=== PATIENT | female | born 1950 | race Caucasian/White ===

== ENCOUNTER → 2016-10-31 | Day surgery (SDC) | payer MEDICARE, OTHER ==
[~2016-10-31] VITALS: Ht 165.1 cm; Wt 86.2 kg
[~2016-10-31] MED LIST: ACETAMINOPHEN 325 MG TAB PO PRN; ACETYLCHOLINE OPHTH SOLN 1% 2ML As Ordered ONE; ATOR1TAB21 PO; AcetaZOLAMIDE 500 MG ER CAP PO ONE; BALANCED SALT IRRIGATION SOLUTION 500ML BAG (FOR OR EYE MACHINE) As Ordered ONE; CEFUROXIME 1MG/0.1ML INTRACAMERAL INJ As Ordered ONE; CYCLOPENTOLATE 2% OPHTH SOLN OS ONE; D5W/0.2% SODIUM CHLORIDE 250 ML IV SCH; HEALON DUET (HEALON 10MG/ML 0.55ML & HEALON ENDOCOAT 30MG/ML 0.85ML) As Ordered ONE; KETOROLAC 0.5% OPHTH SOLN XX ONE; LIDOCAINE 1% SDV 5 ML VIAL As Ordered ONE; LIDOCAINE 4% INJ 5 ML AMP OU ONE; LISI-538 PO; MIDAZOLAM INJ 2 MG/2 ML VIAL (J2250) As Ordered ONE; OFLOXACIN 0.3 % (OCUFLOX) OPTH SOL 5ML OS ONE; PHENYLEPHRINE 2.5% OPHTH SOL 2ML OS ONE; POVIDONE-IODINE 5% OPHTH PREP SOL 30ML As Ordered ONE; PROPARACAINE 0.5% OPHTH SOL 15ML XX PRN; TRIMETHOBENZAMIDE 300 MG CAP PO PRN; TROPICAMIDE 1% OPHTH SOLN 2 ML OS ONE; fentaNYL 100 MCG/2 ML INJECTION (J3010) As Ordered ONE
[2016-10-31 10:00] VITALS: BP 135/62
--- NOTE | 2016-10-31 15:19 | RO ---
DATE OF PROCEDURE: 10/31/2016 PREPROCEDURE DIAGNOSIS: Age-related nuclear cataract, left eye. POSTPROCEDURE DIAGNOSIS: Age-related nuclear cataract, left eye. PROCEDURE: Phacoemulsification and posterior chamber intraocular lens implantation left eye. Lens used was a U00T0, 22.0 Diopter. SURGEON: Jacquie Mccollum MD NEWS ANALYST: ANESTHESIA: Topical with sedation. DESCRIPTION OF PROCEDURE: The patient was prepped and draped in the usual fashion. A lid speculum was placed between the lids. The eye was fixated. A stab incision was made to the anterior chamber, and 1% non-preserved Lidocaine was instilled. Then, viscoelastic was instilled. The eye was re-fixated. A 2.75 mm sapphire keratome was used to make a clear corneal temporal limbal incision. Capsulorrhexis was begun with a 30-gauge bent needle and then carried out in a circular fashion with capsulorrhexis forceps. The lens was hydrodissected, and then the phacoemulsification unit was used to make a groove in the nucleus and two meridians. The nucleus was then cracked into four quadrants. Each quadrant was removed with the phacoemulsification unit. Any remaining cortex was removed with the I A unit. Capsular bag was refilled with viscoelastic. A posterior chamber intraocular lens was placed in the capsular bag without difficulty. Any remaining viscoelastic was removed with the I A unit. The wound was hydrated, and Miochol and cefuroxime were instilled into the anterior chamber. The patient tolerated the procedure well and went to the recovery room in stable condition.
== END | disposition home or self-care (01) ==
LOC: M SDC 08:09
PROVIDERS: ATTEND Ophthalmology
DX: H25.12 Age-related nuclear cataract, left eye (principal); I10 Essential (primary) hypertension; E78.5 Hyperlipidemia, unspecified; Z79.899 Other long term (current) drug therapy
CPT/HCPCS: 66984; J2250; J3010; V2632

== ENCOUNTER → 2016-11-21 | Day surgery (SDC) | payer MEDICARE, OTHER ==
[~2016-11-21] VITALS: Ht 170.2 cm; Wt 86.0 kg
[~2016-11-21] MED LIST changes: +CYCLOPENTOLATE 2% OPHTH SOLN As Ordered ONE; +CYCLOPENTOLATE 2% OPHTH SOLN OD ONE; -CYCLOPENTOLATE 2% OPHTH SOLN OS ONE; +KETOROLAC 0.5% OPHTH SOLN OD ONE; -KETOROLAC 0.5% OPHTH SOLN XX ONE; +OFLOXACIN 0.3 % (OCUFLOX) OPTH SOL 5ML As Ordered ONE; +OFLOXACIN 0.3 % (OCUFLOX) OPTH SOL 5ML OD ONE; -OFLOXACIN 0.3 % (OCUFLOX) OPTH SOL 5ML OS ONE; +PHENYLEPHRINE 2.5% OPHTH SOL 2ML As Ordered ONE; +PHENYLEPHRINE 2.5% OPHTH SOL 2ML OD ONE; -PHENYLEPHRINE 2.5% OPHTH SOL 2ML OS ONE; +PROPARACAINE 0.5% OPHTH SOL 15ML OD PRN; -PROPARACAINE 0.5% OPHTH SOL 15ML XX PRN; +TROPICAMIDE 1% OPHTH SOLN 2 ML As Ordered ONE; +TROPICAMIDE 1% OPHTH SOLN 2 ML OD ONE; -TROPICAMIDE 1% OPHTH SOLN 2 ML OS ONE
[2016-11-21 09:40] VITALS: BP 135/60
--- NOTE | 2016-11-21 09:58 | RO ---
DATE OF PROCEDURE: 11/21/2016 PREPROCEDURE DIAGNOSIS: Age-related nuclear cataract right eye. POSTPROCEDURE DIAGNOSIS: Age-related nuclear cataract right eye. PROCEDURE: Phacoemulsification and posterior chamber intraocular lens implantation right eye. Lens used is a U0020 23.0 diopter. SURGEON: Jacquie Mccollum MD SAMPLE CHECKER: ANESTHESIA: Topical with sedation. DESCRIPTION OF PROCEDURE: The patient was prepped and draped in the usual fashion. A lid speculum was placed between the lids. The eye was fixated. A stab incision was made to the anterior chamber, and 1% nonpreserved Lidocaine was instilled. Then, viscoelastic was instilled. The eye was refixated. A 2.75 mm sapphire keratome was used to make a clear corneal temporal limbal incision. Capsulorrhexis was begun with a 30-gauge bent needle and then carried out in a circular fashion with capsulorrhexis forceps. The lens was hydrodissected, and then the phacoemulsification unit was used to make a groove in the nucleus and two meridians. The nucleus was then cracked into four quadrants. Each quadrant was removed with the phacoemulsification unit. Any remaining cortex was removed with the I+A unit. Capsular bag was refilled with viscoelastic. A posterior chamber intraocular lens was placed in the capsular bag without difficulty. Any remaining viscoelastic was removed with the I+A unit. The wound was hydrated, and Miochol and cefuroxime were instilled into the anterior chamber. The patient tolerated the procedure well and went to the recovery room in stable condition.
== END | disposition home or self-care (01) ==
LOC: M SDC 07:14
PROVIDERS: ATTEND Ophthalmology
DX: H25.11 Age-related nuclear cataract, right eye (principal); I10 Essential (primary) hypertension; E78.5 Hyperlipidemia, unspecified; Z79.899 Other long term (current) drug therapy
CPT/HCPCS: 66984; J2250; J3010; V2632

== ENCOUNTER → 2017-10-10 | Outpatient (CLI) | payer MEDICARE, OTHER | LOC: M WUC 13:09 | DX: R06.02 Shortness of breath (principal) | CPT/HCPCS: 71046 ==

== ENCOUNTER → 2018-01-22 | Outpatient (REF) | payer MEDICARE, OTHER ==
[2018-01-22 13:24] LABS: ALBUMIN/GLOBULIN RATIO 1.33 (1.00-1.93); ALKALINE PHOSPHATASE 72 U/L (45-117); ALT/SGPT 33 U/L (12-78); ANION GAP 9 MEQ/L (8-16); AST/SGOT 18 U/L (7-37); BILIRUBIN,TOTAL 0.3 MG/DL (0.2-1.0); BLOOD UREA NITROGEN 20 MG/DL (7-18); CALCIUM LEVEL 8.9 MG/DL (8.8-10.2); CARBON DIOXIDE LEVEL 25 MEQ/L (21-32); CHLORIDE LEVEL 111 MEQ/L (98-107); CHOLESTEROL LEVEL 234 MG/DL (<200); CHOLESTEROL RISK RATIO 3.966 (<5); CREATININE FOR GFR 0.78 MG/DL (0.55-1.30); FREE T4 0.73 NG/DL (0.76-1.46); GLOMERULAR FILTRATION RATE > 60.0 (>45); GLUCOSE, FASTING 105 MG/DL (70-100); HDL CHOLESTEROL 59 MG/DL (>40); LDL CHOLESTEROL 147.8 MG/DL (<100); NON-HDL-C 175 MG/DL; POTASSIUM SERUM 4.9 MEQ/L (3.5-5.1); SODIUM LEVEL 145 MEQ/L (136-145); TRIGLYCERIDES LEVEL 136 MG/DL (<150)
== END ==
LOC: M LABDRWAD 12:10
DX: E78.2 Mixed hyperlipidemia (principal)

== ENCOUNTER → 2018-01-22 | Outpatient (CLI) | payer MEDICARE, OTHER | LOC: M ADAMS 08:17 | DX: M25.561 Pain in right knee (principal); E78.2 Mixed hyperlipidemia | CPT/HCPCS: 84443 ==

== ENCOUNTER → 2018-02-25 | Outpatient (REF) | payer MEDICARE, OTHER ==
[2018-02-25 13:33] LABS: ANION GAP 8 MEQ/L (8-16); BLOOD UREA NITROGEN 14 MG/DL (7-18); CALCIUM LEVEL 8.9 MG/DL (8.8-10.2); CARBON DIOXIDE LEVEL 26 MEQ/L (21-32); CHLORIDE LEVEL 111 MEQ/L (98-107); CHOLESTEROL LEVEL 227 MG/DL (<200); CHOLESTEROL RISK RATIO 4.829 (<5); CREATININE FOR GFR 0.71 MG/DL (0.55-1.30); FREE T4 0.78 NG/DL (0.76-1.46); GLOMERULAR FILTRATION RATE > 60.0 (>45); GLUCOSE, FASTING 91 MG/DL (70-100); HDL CHOLESTEROL 47 MG/DL (>40); LDL CHOLESTEROL 144.8 MG/DL (<100); NON-HDL-C 180 MG/DL; POTASSIUM SERUM 4.7 MEQ/L (3.5-5.1); SODIUM LEVEL 145 MEQ/L (136-145); TRIGLYCERIDES LEVEL 176 MG/DL (<150)
[2018-02-25 14:44] LABS: ESTIMATED AVERAGE GLUCOSE 126 MG/DL (60-110)
[2018-02-26 08:41] LABS: THYROID PEROXIDASE ANTIBODY < 28.0 U/ML (<60.0)
== END ==
LOC: M LABDRWAD 12:19
DX: E78.2 Mixed hyperlipidemia (principal); R73.01 Impaired fasting glucose; I10 Essential (primary) hypertension; R94.6 Abnormal results of thyroid function studies
CPT/HCPCS: 84443

== ENCOUNTER → 2018-04-15 | Outpatient (CLI) | payer MEDICARE, OTHER ==
[2018-04-15 15:12] LABS: FREE T4 0.99 NG/DL (0.76-1.46)
== END ==
LOC: M WUC 10:32
DX: E03.9 Hypothyroidism, unspecified (principal)
CPT/HCPCS: 84443

== ENCOUNTER → 2018-05-27 | Outpatient (REF) | payer MEDICARE, OTHER ==
[2018-05-27 13:48] LABS: ANION GAP 2 MEQ/L (8-16); BLOOD UREA NITROGEN 17 MG/DL (7-18); CALCIUM LEVEL 9.3 MG/DL (8.8-10.2); CARBON DIOXIDE LEVEL 30 MEQ/L (21-32); CHLORIDE LEVEL 109 MEQ/L (98-107); CHOLESTEROL LEVEL 243 MG/DL (<200); CREATININE FOR GFR 0.82 MG/DL (0.55-1.30); GLOMERULAR FILTRATION RATE > 60.0 (>45); GLUCOSE, FASTING 95 MG/DL (70-100); HDL CHOLESTEROL 47 MG/DL (>40); LDL CHOLESTEROL 129 MG/DL (<100); NON-HDL-C 196 MG/DL; POTASSIUM SERUM 5.4 MEQ/L (3.5-5.1); SODIUM LEVEL 141 MEQ/L (136-145); TRIGLYCERIDES LEVEL 336 MG/DL (<150)
[2018-05-27 13:51] LABS: ESTIMATED AVERAGE GLUCOSE 120 MG/DL (60-110); HEMOGLOBIN A1c 5.8 %
== END ==
LOC: M LABDRWAD 12:32
DX: E78.2 Mixed hyperlipidemia (principal); Z79.899 Other long term (current) drug therapy
CPT/HCPCS: 83036

== ENCOUNTER → 2019-01-12 | Outpatient (REF) | payer MEDICARE, OTHER ==
[~2019-01-12] MED LIST changes: -ACETAMINOPHEN 325 MG TAB PO PRN; -ACETYLCHOLINE OPHTH SOLN 1% 2ML As Ordered ONE; -AcetaZOLAMIDE 500 MG ER CAP PO ONE; -BALANCED SALT IRRIGATION SOLUTION 500ML BAG (FOR OR EYE MACHINE) As Ordered ONE; -CEFUROXIME 1MG/0.1ML INTRACAMERAL INJ As Ordered ONE; -CYCLOPENTOLATE 2% OPHTH SOLN As Ordered ONE; -CYCLOPENTOLATE 2% OPHTH SOLN OD ONE; -D5W/0.2% SODIUM CHLORIDE 250 ML IV SCH; -HEALON DUET (HEALON 10MG/ML 0.55ML & HEALON ENDOCOAT 30MG/ML 0.85ML) As Ordered ONE; -KETOROLAC 0.5% OPHTH SOLN OD ONE; -LIDOCAINE 1% SDV 5 ML VIAL As Ordered ONE; -LIDOCAINE 4% INJ 5 ML AMP OU ONE; -MIDAZOLAM INJ 2 MG/2 ML VIAL (J2250) As Ordered ONE; -OFLOXACIN 0.3 % (OCUFLOX) OPTH SOL 5ML As Ordered ONE; -OFLOXACIN 0.3 % (OCUFLOX) OPTH SOL 5ML OD ONE; -PHENYLEPHRINE 2.5% OPHTH SOL 2ML As Ordered ONE; -PHENYLEPHRINE 2.5% OPHTH SOL 2ML OD ONE; -POVIDONE-IODINE 5% OPHTH PREP SOL 30ML As Ordered ONE; -PROPARACAINE 0.5% OPHTH SOL 15ML OD PRN; -TRIMETHOBENZAMIDE 300 MG CAP PO PRN; -TROPICAMIDE 1% OPHTH SOLN 2 ML As Ordered ONE; -TROPICAMIDE 1% OPHTH SOLN 2 ML OD ONE; -fentaNYL 100 MCG/2 ML INJECTION (J3010) As Ordered ONE
[2019-01-12 13:35] LABS: ALBUMIN 3.9 GM/DL (3.2-5.2); ALT/SGPT 29 U/L (12-78); BILIRUBIN,TOTAL 0.4 MG/DL (0.2-1.0); BLOOD UREA NITROGEN 15 MG/DL (7-18); CALCIUM LEVEL 8.9 MG/DL (8.8-10.2); CARBON DIOXIDE LEVEL 27 MEQ/L (21-32); CHLORIDE LEVEL 111 MEQ/L (98-107); CHOLESTEROL LEVEL 197 MG/DL (<200); CHOLESTEROL RISK RATIO 3.229 (<5); CREATININE FOR GFR 0.73 MG/DL (0.55-1.30); FREE T4 0.78 NG/DL (0.76-1.46); GLOMERULAR FILTRATION RATE > 60.0 (>45); GLUCOSE, FASTING 95 MG/DL (70-100); HDL CHOLESTEROL 61 MG/DL (>40); LDL CHOLESTEROL 98 MG/DL (<100); NON-HDL-C 136 MG/DL; POTASSIUM SERUM 4.7 MEQ/L (3.5-5.1); SODIUM LEVEL 144 MEQ/L (136-145); TRIGLYCERIDES LEVEL 189 MG/DL (<150)
[2019-01-12 14:50] LABS: HEMOGLOBIN A1c 5.6 %
== END ==
LOC: M LABDRWAD 12:43
PROVIDERS: ATTEND Family Medicine
DX: R73.03 Prediabetes (principal); E78.2 Mixed hyperlipidemia; E03.9 Hypothyroidism, unspecified

== ENCOUNTER → 2019-07-14 | Outpatient (REF) | payer MEDICARE, OTHER ==
[2019-07-14 13:03] LABS: BLOOD UREA NITROGEN 10 MG/DL (7-18); CALCIUM LEVEL 8.6 MG/DL (8.8-10.2); CARBON DIOXIDE LEVEL 27 MEQ/L (21-32); CHLORIDE LEVEL 114 MEQ/L (98-107); CHOLESTEROL LEVEL 134 MG/DL (<200); CHOLESTEROL RISK RATIO 2.528 (<5); CREATININE FOR GFR 0.65 MG/DL (0.55-1.30); FREE T4 0.96 NG/DL (0.76-1.46); GLOMERULAR FILTRATION RATE > 60.0 (>39); GLUCOSE, FASTING 100 MG/DL (70-100); HDL CHOLESTEROL 53 MG/DL (>40); LDL CHOLESTEROL 59 MG/DL (<100); NON-HDL-C 81 MG/DL; POTASSIUM SERUM 3.6 MEQ/L (3.5-5.1); SODIUM LEVEL 146 MEQ/L (136-145); TRIGLYCERIDES LEVEL 111 MG/DL (<150)
[2019-07-14 13:36] LABS: HEMOGLOBIN A1c 5.7 %
== END ==
LOC: M LABDRWAD 12:37
PROVIDERS: ATTEND Physician Assistant
DX: I10 Essential (primary) hypertension (principal); E03.9 Hypothyroidism, unspecified; R73.03 Prediabetes; E78.2 Mixed hyperlipidemia

== ENCOUNTER 2019-08-23 10:12 | Emergency (ER) | payer MEDICARE, OTHER ==
[~2019-08-23] VITALS: Ht 165.1 cm; Wt 83.9 kg
--- NOTE | 2019-08-23 11:17 | REP ---
CHEST, TWO VIEWS: There is no evidence of acute infiltrate. No pleural effusion is seen. The heart is normal in size. The mediastinal silhouette is unremarkable. The visualized osseous structures are intact. There is calcification of the thoracic aorta. IMPRESSION: No acute pulmonary disease. Electronically Signed by Justin Cervantes MD 08/23/2019 11:21 A
[2019-08-23 11:28] LABS: BASO % 0.4 % (0.0-1.0); EOS # 0.1 10^3/uL (0.0-0.5); EOS % 0.9 % (0.0-3.0); HEMATOCRIT 42.5 % (36.0-47.0); HEMOGLOBIN 13.6 g/dl (12.0-15.5); LYMPH # 2.4 10^3/uL (1.5-5.0); LYMPH % 28.2 % (24.0-44.0); MEAN CORPUSCULAR HEMOGLOBIN 30.6 pg (27.0-33.0); MEAN CORPUSCULAR VOLUME 95.5 fl (80.0-96.0); MONO # 0.5 10^3/uL (0.0-0.8); MONO % 5.3 % (0.0-5.0); NEUTROPHILS # 5.6 10^3/uL (1.5-8.5); PLATELET COUNT, AUTOMATED 221 10^3/uL (150-450); RED BLOOD COUNT 4.45 10^6/uL (4.00-5.40); WHITE BLOOD COUNT 8.6 10^3/uL (4.0-10.0)
[2019-08-23] MEDS ORDERED: ACETAMINOPHEN TAB 650MG DOSE (2X325MG) PO ONE (11:30)
[2019-08-23 11:53] LABS: ALBUMIN 4.1 GM/DL (3.2-5.2); ALT/SGPT 24 U/L (12-78); BILIRUBIN,DIRECT 0.2 MG/DL (0.0-0.2); BILIRUBIN,TOTAL 0.6 MG/DL (0.2-1.0); BLOOD UREA NITROGEN 11 MG/DL (7-18); CALCIUM LEVEL 9.1 MG/DL (8.8-10.2); CARBON DIOXIDE LEVEL 26 MEQ/L (21-32); CHLORIDE LEVEL 108 MEQ/L (98-107); CK-MB VALUE MASS 1.9 NG/ML (<3.6); CPK CREATINE PHOSPHOKINASE 131 U/L (26-192); CREATININE FOR GFR 0.73 MG/DL (0.55-1.30); GLOMERULAR FILTRATION RATE > 60.0 (>39); GLUCOSE, FASTING 95 MG/DL (70-100); LIPASE 618 U/L (73-393); MB/CK RELATIVE INDEX 1.45 (< OR =4); POTASSIUM SERUM 4.2 MEQ/L (3.5-5.1); SODIUM LEVEL 141 MEQ/L (136-145); TOTAL PROTEIN 7.5 GM/DL (6.4-8.2); TROPONIN I < 0.02 NG/ML (< 0.10)
--- NOTE | 2019-08-23 12:28 | REP ---
RIGHT UPPER QUADRANT ULTRASOUND: Real-time sonographic evaluation of the right upper quadrant performed. Gallbladder is moderately distended. There is no evidence of intraluminal gallstones. There is no gallbladder wall thickening or pericholecystic fluid. However there is dilatation of the common bile duct up to 16 mm. There is also diltation of the pancreatic duct up to 6 mm. Visualized pancreas is grossly unremarkable, but the pancreatic parenchyma is not well seen due to overlying bowel gas. Liver demonstrates no gross mass. Right kidney demonstrates no hydronephrosis with normal size 11.1 cm in length. IMPRESSION: No gallstones seen in the gallbladder and there is no gallbladder wall thickening or free fluid. However, there is dilatation of the common bile duct up to 16 mm and diltation of the pancreatic duct up to 6 mm. This suggests a stone or other abnormality at the ampulla of Vater. Further evaluation may be made with MRCP. Electronically Signed by Justin Cervantes MD 08/23/2019 05:52 P
[2019-08-23] MEDS ORDERED: LORazepam 2 MG/ML VIAL (J2060) IV STA ×2 (13:07→13:33)
[2019-08-23] MEDS ORDERED: ISOVUE-370 76% 100ML VIAL (Q9967) As Ordered ONE (14:28)
[2019-08-23] MEDS ORDERED: ACETAMINOPHEN TAB 650MG DOSE (2X325MG) PO PRN (16:15)
[2019-08-23] MEDS ORDERED: ONDA4TAB6 PO (16:31)
[2019-08-23 16:44] VITALS: BP 147/66
--- NOTE | 2019-08-23 20:44 | ECGEPIP ---
[facility] - ED Test Date: 2019-08-23 Pat Name: CINDI VALDIVIA Department: Room: - Gender: Female Court Manager: [facility] : 1950 Requested By: PROMISE Culver PA-C Order Number: [id number] Reading MD: Jewell Sanchez Measurements Intervals [place] Rate: 58 P: 15 [place]: 155 QRS: -5 QRSD: 96 T: 55 QT: 431 QTc: 427 Interpretive Statements SINUS BRADYCARDIA [id number] Electronically Signed on 08-23-2019 20:43:49 EST by Jewell Sanchez
--- NOTE | 2019-08-24 07:53 | REP ---
CT ABDOMEN AND PELVIS WITH IV CONTRAST: TECHNIQUE: Axial contrast enhanced images from the lung bases to the pubic symphysis using 100 mL Isovue 370 intravenous contrast material with multiplanar reformations. Visualized lung bases demonstrates no infiltrate. The liver demonstrates no mass. Spleen is normal in size with no intrinsic abnormality. The adrenal glands are normal. No mass or hydronephrosis is seen of the kidneys. There is a mass in the head of the pancreas measuring approximately 4 cm in maximum diameter. There is secondary moderate dilatation of the pancreatic duct as well as the common bile duct. Gallbladder is moderately distended. 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 There is secondary mild congestion in the mesentery with mild central mesenteric edema and multiple tiny lymph nodes present. There is atherosclerotic calcification of the abdominal aorta without aneurysm. No enlarged periaortic or peripancreatic lymph nodes are seen. There is no free air or free fluid. There is no bowel wall thickening. There is no pelvic mass. Urinary bladder is unremarkable. There are degenerative changes of the spine. IMPRESSION: There is a mass in the head of the pancreas 4 cm in maximum diameter with secondary dilatation of the pancreatic duct and bile ducts. 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 Electronically Signed by Justin Cervantes MD 08/24/2019 06:03 P
[2019-08-25 12:30] LABS: CA19-9 TUMOR MARKER,CARBOHYDRA 1542.2 U/ML (<35.0)
== END 2019-08-23 16:48 | disposition home or self-care (01) ==
LOC: M ED 10:12 → UNDOADMIN 16:03 → M ED INP 16:03 → UNDODISIN 16:47
DX: K85.90 Acute pancreatitis without necrosis or infection, unspecified (principal); K55.059 Acute (reversible) ischemia of intestine, part and extent unspecified; D37.8 Neoplasm of uncertain behavior of other specified digestive organs; I70.0 Atherosclerosis of aorta; R00.1 Bradycardia, unspecified; I25.2 Old myocardial infarction; E78.5 Hyperlipidemia, unspecified; E03.9 Hypothyroidism, unspecified; I10 Essential (primary) hypertension; K21.9 Gastro-esophageal reflux disease without esophagitis; R73.03 Prediabetes; Z87.442 Personal history of urinary calculi
CPT/HCPCS: 36415; 71046; 74177; 76705; 80048; 80076; 81001; 82550; 82553; 83690; 84484; 85025; 86301; 93005; 96374; 99284; J2060; Q9967

== ENCOUNTER 2019-08-29 22:44 | Emergency (ER) | payer MEDICARE, OTHER ==
[~2019-08-29] VITALS: Ht 165.1 cm; Wt 80.9 kg
[~2019-08-29 22:44] MED LIST changes: +ONDA4TAB6 PO
[2019-08-29] MEDS ORDERED: HYDR-3716 PO (23:00)
[2019-08-29] MEDS ORDERED: AMLO10TA5 PO (23:00)
[2019-08-29] MEDS ORDERED: LEVO75TA4 PO (23:00)
[2019-08-29] MEDS: MORPHINE 4 MG/ML 1ML VIAL/SYRINGE (J2270) IV PRN (23:30)
[2019-08-29] MEDS ORDERED: ONDANSETRON 4MG/2ML VIAL (J2405) IV ONE (23:30)
[2019-08-29 23:41] LABS: BASO % 0.2 % (0.0-1.0); HEMOGLOBIN 13.1 g/dl (12.0-15.5); LYMPH # 1.3 10^3/uL (1.5-5.0); MEAN CORPUSCULAR HEMOGLOBIN 30.7 pg (27.0-33.0); MEAN CORPUSCULAR HGB CONC 32.8 g/dl (32.0-36.5); MEAN CORPUSCULAR VOLUME 93.7 fl (80.0-96.0); MONO # 0.4 10^3/uL (0.0-0.8); MONO % 2.8 % (0.0-5.0); NEUTROPHILS # 12.5 10^3/uL (1.5-8.5); NEUTROPHILS % 87.8 % (36.0-66.0); PLATELET COUNT, AUTOMATED 262 10^3/uL (150-450); RED BLOOD COUNT 4.27 10^6/uL (4.00-5.40); WHITE BLOOD COUNT 14.2 10^3/uL (4.0-10.0)
[2019-08-30] MEDS: MORPHINE 4 MG/ML 1ML VIAL/SYRINGE (J2270) IV PRN (00:02)
[2019-08-30 00:03] LABS: ALBUMIN 3.6 GM/DL (3.2-5.2); ALT/SGPT 28 U/L (12-78); BILIRUBIN,DIRECT < 0.1 MG/DL (0.0-0.2); BILIRUBIN,TOTAL 0.4 MG/DL (0.2-1.0); BLOOD UREA NITROGEN 13 MG/DL (7-18); CALCIUM LEVEL 8.5 MG/DL (8.8-10.2); CARBON DIOXIDE LEVEL 22 MEQ/L (21-32); CHLORIDE LEVEL 112 MEQ/L (98-107); CREATININE FOR GFR 0.56 MG/DL (0.55-1.30); GLOMERULAR FILTRATION RATE > 60.0 (>39); GLUCOSE, FASTING 151 MG/DL (70-100); LIPASE 409 U/L (73-393); POTASSIUM SERUM 4.3 MEQ/L (3.5-5.1); SODIUM LEVEL 142 MEQ/L (136-145); TOTAL PROTEIN 6.8 GM/DL (6.4-8.2)
[2019-08-30] MEDS: GASTROGRAFIN SOLUTION 30ML PO SCH ×2 (01:48→02:15)
[2019-08-30] MEDS ORDERED: ISOVUE-370 76% 100ML VIAL (Q9967) As Ordered ONE (02:56)
--- NOTE | 2019-08-30 04:30 | REPVR ---
PROCEDURE INFORMATION: Exam: CT Abdomen And Pelvis With Contrast Exam date and time: 08/30/2019 3:09 AM Age: 69 years old Clinical indication: Abdominal pain; Generalized; Additional info: Abd pain, known pancreatic mass TECHNIQUE: Imaging protocol: Computed tomography of the abdomen and pelvis with intravenous contrast. Radiation optimization: All CT scans at this facility use at least one of these dose optimization techniques: automated exposure control; mA and/or kV adjustment per patient size (includes targeted exams where dose is matched to clinical indication); or iterative reconstruction. Contrast material: ISOVUE 370; Contrast volume: 100 ml; Contrast route: IV; COMPARISON: CT ABD/PEL W/IV CONTRAST ONLY 08/23/2019 2:25 PM FINDINGS: Lungs: Mild bibasilar atelectasis. Liver: Normal. No mass. Gallbladder and bile ducts: Marked distention of the gallbladder without any calcified stones. Dilated CBD is dilated measuring 11.4 mm. Pancreas: Lesion in the head of the pancreas with pancreatic ductal dilatation, not significantly changed from prior study. Findings are consistent with patient's given history of pancreatic cancer. Spleen: Normal. No splenomegaly. Adrenals: Normal. No mass. Kidneys and ureters: Normal. No hydronephrosis. Stomach and bowel: Marked thickening of the distal small bowel loop in the right lower quadrant and pelvis with mucosal enhancement and wall thickening and surrounding inflammatory changes. Distal small bowel loops are decompressed. Mild dilatation of the proximal small bowel loops in the mid abdomen and pelvis. Appendix: Normal appendix. Intraperitoneal space: Small ascites. Mesenteric congestion and moderate in enlarged mesenteric root lymph nodes. Vasculature: Extensive atherosclerosis of the aorta and its branches. Thrombus in the SMV and its branches. Lymph nodes: Unremarkable. No enlarged lymph nodes. Bladder: Unremarkable as visualized. Reproductive: Status post hysterectomy. Bones/joints: Unremarkable. No acute fracture. Soft tissues: Unremarkable. IMPRESSION: Lesion in the head of the pancreas with pancreatic ductal dilatation, not significantly changed from prior study. Findings are consistent with patient's given history of pancreatic cancer. Thrombus in the SMV and its branches. Mild ascites. Marked distention of the gallbladder without any calcified stones. Dilated CBD is dilated measuring 11.4 mm. Marked thickening of the distal small bowel loop in the right lower quadrant and pelvis with mucosal enhancement and wall thickening and surrounding inflammatory changes. Distal small bowel loops are decompressed. Mild dilatation of the proximal small bowel loops in the mid abdomen and pelvis. Findings represent marked inflammation versus infection. Electronically signed by: Desiree Petersen On 08/30/2019 04:29:55 AM
[2019-08-30] MEDS ORDERED: NORCO, ANEXSIA 5/325MG TABLET (HYDROcodone/ACETAMINOPHEN) PO ONE (04:45)
[2019-08-30 04:54] VITALS: BP 133/57
--- NOTE | 2019-08-30 12:50 | ECGEPIP ---
[facility] - ED Test Date: 2019-08-29 Pat Name: CINDI VALDIVIA Department: Room: - Gender: Female [employer] Helper: BEVER[place] : 1950 Requested By: MIREILLE Curtis Order Number: [id number] Reading MD: Jewell Sanchez Measurements Intervals [place] Rate: 61 P: 52 [place]: 202 QRS: -7 QRSD: 106 T: 52 QT: 470 QTc: 476 Interpretive Statements SINUS RHYTHM WITH OCCASIONAL VENTRICULAR PREMATURE COMPLEXES WITH OCCASIONAL SUP SUPRAVENTRICULAR PREMATURE COMPLEXES NONSPECIFIC T-WAVE ABNORMALITY PROLONGED QT INTERVAL COMPARED 08/23/19 Electronically Signed on 08-30-2019 12:50:19 EST by Jewell Sanchez
--- NOTE | 2019-09-02 14:15 | ED PDOC ---
Post-Departure Follow-Up ct abd/p faxed to dr bubba su for fu Mitul Palafox MD Sep 02, 2019 14:15
== END 2019-08-30 05:22 | disposition home or self-care (01) ==
LOC: M ED 22:44
DX: R93.5 Abnormal findings on diagnostic imaging of other abdominal regions, including retroperitoneum (principal); R10.9 Unspecified abdominal pain; R11.2 Nausea with vomiting, unspecified; I10 Essential (primary) hypertension; K86.89 Other specified diseases of pancreas; Z79.899 Other long term (current) drug therapy; Z87.891 Personal history of nicotine dependence
CPT/HCPCS: 74177; 80048; 80076; 81001; 83690; 85025; 87086; 93005; 93041; 96374; 96375; 96376; 99285; J2270; J2405; Q9963; Q9967

== ENCOUNTER → 2019-09-09 | Outpatient (REF) | payer MEDICARE, OTHER ==
[~2019-09-09] MED LIST changes: +AMLO10TA5 PO; +HYDR-3716 PO; +LEVO75TA4 PO
== END ==
LOC: M LAB REF 12:58
PROVIDERS: ATTEND Physician Assistant Medical
DX: K86.89 Other specified diseases of pancreas (principal)

== ENCOUNTER 2019-10-13 12:03 | Inpatient (IN) | payer MEDICARE, OTHER ==
[~2019-10-13] VITALS: Ht 165.1 cm; Wt 72.5 kg
[~2019-10-13 12:03] MED LIST changes: +ASPI81TA85 PO; +ATIV1TAB10 PO; +CRES20TA2 PO; +HYDR-4517 PO; +LEXA1TAB PO; +NAPR220C14 PO; +OMEP-218 PO; +PROC10TA4 PO; +[UNRECOGNIZED DRUG - CODE] PO
[2019-10-13 12:45] LABS: HEMATOCRIT 34.7 % (36.0-47.0); HEMOGLOBIN 11.6 g/dl (12.0-15.5); MEAN CORPUSCULAR HEMOGLOBIN 30.1 pg (27.0-33.0); MEAN CORPUSCULAR HGB CONC 33.4 g/dl (32.0-36.5); MEAN CORPUSCULAR VOLUME 89.9 fl (80.0-96.0); PLATELET COUNT, AUTOMATED 194 10^3/uL (150-450); RED BLOOD COUNT 3.86 10^6/uL (4.00-5.40); WHITE BLOOD COUNT 12.8 10^3/uL (4.0-10.0)
[2019-10-13 13:13] LABS: ALBUMIN 3.2 GM/DL (3.2-5.2); ALT/SGPT 264 U/L (12-78); BILIRUBIN,DIRECT 13.1 MG/DL (0.0-0.2); BILIRUBIN,TOTAL 20.2 MG/DL (0.2-1.0); BLOOD UREA NITROGEN 26 MG/DL (7-18); CALCIUM LEVEL 9.1 MG/DL (8.8-10.2); CARBON DIOXIDE LEVEL 25 MEQ/L (21-32); CHLORIDE LEVEL 104 MEQ/L (98-107); CREATININE FOR GFR 0.78 MG/DL (0.55-1.30); GLOMERULAR FILTRATION RATE > 60.0 (>39); GLUCOSE, FASTING 111 MG/DL (70-100); LIPASE 143 U/L (73-393); POTASSIUM SERUM 4.7 MEQ/L (3.5-5.1); SODIUM LEVEL 138 MEQ/L (136-145); TOTAL PROTEIN 6.3 GM/DL (6.4-8.2)
[2019-10-13 13:28] LABS: LYMPHOCYTES 15 % (16-44); MYELOCYTES 1 % (0-0); NEUTROPHILS 82 % (28-66); PLATELET ESTIMATE NORMAL (NORMAL)
[2019-10-13 13:29] LABS: ANISOCYTOSIS 1+; DOHLE BODIES 1+; TOXIC GRANULATION 1+
[2019-10-13 13:41] LABS: CK-MB VALUE MASS < 1.0 NG/ML (<3.6); CPK CREATINE PHOSPHOKINASE 114 U/L (26-192); MB/CK RELATIVE INDEX 0.88 (< OR =4); TROPONIN I < 0.02 NG/ML (< 0.10)
[2019-10-13] MEDS ORDERED: NS 1,000 ML IV ONE ×2 (13:45→15:15)
--- NOTE | 2019-10-13 14:03 | REP ---
CHEST, SINGLE VIEW: There is no evidence of acute infiltrate. No pleural effusion is seen. The heart is normal in size. The mediastinal silhouette is unremarkable. The visualized osseous structures are intact. There is a right central venous catheter with the tip at the junction of the superior vena cava and right atrium. IMPRESSION: No acute pulmonary disease. Electronically Signed by Justin Cervantes MD 10/13/2019 07:58 P
[2019-10-13] MEDS ORDERED: ISOVUE-370 76% 100ML VIAL (Q9967) As Ordered ONE (14:13)
[2019-10-13] MEDS ORDERED: ONDA4TAB6 PO (14:20)
[2019-10-13] MEDS ORDERED: LISI-672 PO (14:20)
[2019-10-13] MEDS ORDERED: CREO3600 PO ×2 (14:20)
--- NOTE | 2019-10-13 14:51 | REP ---
CT abdomen and pelvis with IV but without oral contrast: History: Worsening jaundice. History of pancreatic cancer. Comparison CT study August 30, 2019. CT contrast dose: 100 mL of intravenous Isovue 370. CT findings: Digital preliminary adjunct faculty instructor radiograph is unremarkable. The lung bases are clear. There is moderate intrahepatic and extrahepatic biliary ductal dilation. The gallbladder is distended. The common bile duct measures 1.7 cm in AP dimension, previously 1.3 cm. The main pancreatic duct is dilated. This has progressed as well. The main pancreatic duct today measures 9 mm, previously 5 mm. There is fullness of the inferior pancreatic head consistent with the diagnosis of pancreatic malignancy. This appears essentially unchanged from the recent prior study. There are a few celiac axis lymph nodes, the largest of which measures 8 mm in greatest diameter. This node is unchanged. No focal liver mass is appreciated. Spleen is unremarkable. The previously noted ascites is no longer apparent. Normal appendix is seen. No retroperitoneal mass is seen. Uterus is surgically absent. Urinary bladder is unremarkable. No abdominal wall defect is seen. Impression: Progressive biliary ductal dilation, both intrahepatic and extrahepatic associated with inferior pancreatic head mass. Progressive dilation of the pancreatic duct is also noted. The previously noted ascites has resolved. Electronically Signed by Yan Rivera MD 10/13/2019 06:01 P
[2019-10-13] MEDS ORDERED: PANTOPRAZOLE 40MG INJ (PROTONIX) (C9113) IV ONE (15:15)
[2019-10-13 15:20] LABS: PHOSPHORUS LEVEL 3.3 MG/DL (2.5-4.9)
[2019-10-13] MEDS ORDERED: ONDANSETRON 4MG/2ML VIAL (J2405) IV PRN (15:30)
[2019-10-13] MEDS ORDERED: PROCHLORPERAZINE 10 MG/2 ML VIAL (J0780) IM PRN (15:30)
[2019-10-13 16:00] VITALS: BP 148/72
[2019-10-13] MEDS ORDERED: hydrALAZINE INJ 20 MG/ML VIAL IV PRN (16:15)
--- NOTE | 2019-10-13 16:46 | HPEPDOC ---
General Date of Admission Oct 13, 2019 at 15:16 Date of Service: Oct 13, 2019 Primary Care Physician: JUJU BAEZ DO Other Providers Alexei Ashton MD Chief Complaint Nausea, vomiting, weakness History of Present Illness Frances is a 69-year-old woman who presented to the emergency department today with increased nausea, vomiting, and weakness. She has a past medical history significant for adenocarcinoma of the pancreas, and her first session of chemotherapy (Folfirinox) was on 10/07/2019. Since then, she has had increased nausea as well as vomiting. She has not been able to take any of her home medications since yesterday. She has also felt so weak that she couldn't get out of bed. She does have chronic diarrhea, that she has had since before her diagnosis. She complains that her abdomen is sore, but does not complain of any pain. She denies hematemesis, hematochezia, or melena. She denies fevers or chills. As far as the history of her cancer is concerned. In spring she became aware of abdominal discomfort, which then became progressively more severe over the course of about 9 months. Ultimately it was associated with a weight loss of greater than 40 pounds, as well as decreased energy with diarrhea. She had initially itching. Her abdominal discomfort to acid reflux and had a CT scan of the abdomen and pelvis on 08/23/2019. She was found to have had a 4 cm mass at the head of the pancreas, as well as superior mesenteric venous thrombosis. She was subsequently referred to [facility] and underwent an ERCP with ultrasound-guided biopsy of the pancreatic mass. Fine-needle aspirate confirmed the diagnosis of adenocarcinoma of the pancreas. The tumor was felt to be borderline resectable, and she underwent placement of a MediPort and initiation of Xarelto anticoagulation. She was also placed on Creon pancreatic enzymes, resulting in an improved ability to tolerate oral intake, as well as reduce abdominal pain and improvement in bowel habits with the reduction of diarrhea. She requested to receive neoadjuvant chemotherapy in [place], and was evaluated in the practice on 09/30/2019. Her first round of chemotherapy was 10/07/2019. Home Medications Scheduled Amlodipine Besylate (Amlodipine Besylate) 10 Mg Tablet, 10 MG PO DAILY, (Reported) Escitalopram Oxalate (Lexapro) 10 Mg Tablet, 10 MG PO DAILY, (Reported) Levothyroxine Sodium (Levothyroxine Sodium) 75 Mcg Tablet, 75 MCG PO DAILY, (Reported) Lipase/Protease/Amylase (Ignacia Cloud 36,000 Units Capsule) 1 Each Capsule.dr, 2 CAP PO WM, (Reported) Lisinopril (Lisinopril) 30 Mg Tablet, 30 MG PO QHS, (Reported) Omeprazole (Omeprazole) 40 Mg Capsule.dr, 40 MG PO BID Prochlorperazine Maleate (Prochlorperazine Maleate) 10 Mg Tablet, 1 TAB PO Q6H for nausea Take 10 mg po q 6 hours prn nausea not controlled by zofran Rosuvastatin Calcium (Crestor) 20 Mg Tablet, 20 MG PO QHS, (Reported) Sucralfate (Sucralfate) 1 Gm Tablet, 1 TAB PO BID Scheduled PRN Hydrocodone/Acetaminophen (Hydrocodone-Acetamin 10-325 mg) 1 Each Tablet, 1 TAB PO QID PRN for PAIN, (Reported) Lipase/Protease/Amylase (Ignacia Cloud 36,000 Units Capsule) 1 Each Capsule.dr, 1 CAP PO DAILY PRN for WITH SNACKS, (Reported) Lorazepam (Ativan) 0.5 Mg Tablet, 0.5 MG PO DAILYPRN PRN for NAUSEA Take 0.5 mg po q 6 hours prn nausea uncontrolled by Zofran or Compazine Ondansetron (Ondansetron Odt) 4 Mg Tab.rapdis, 4 MG PO Q6H PRN for NAUSEA OR VOMITING, (Reported) Allergies Coded Allergies: No Known Allergies (Unverified , 08/29/19) Past Medical History Medical History Adenocarcinoma of the pancreas Hypothyroidism Hypertension Coronary artery disease status post myocardial infarction (1981 and 1992) History of tobacco use, quit when she had her heart attack (greater than 45-[id number]-[id number] smoking history) Anxiety GERD Hyperlipidemia Surgical History D&C Hysterectomy secondary to menorrhagia Right kidney stone and surgical extraction (1976) MediPort placement ERCP with ultrasound-guided biopsy Family History Father at age 60 from a myocardial infarction, mother at age 72, cause unknown. She has 2 sisters that have both had COMMISSIONING ENGINE[employer] cancer. She also has a niece that had a history of brain cancer Social History Patient lives with her , son, and an 80 pound mixed breed dog. She designates her as her alternate decision maker, and states that he will be helped up by her daughter. Her daughter is supposed to arrive into town on October 20 to go over paperwork. She is a former smoker, having quit almost 30 years ago when she had her heart attack (she has a greater than 03-[id number]-wjvx smoking history). She denies alcohol or drug use. Other than travel to [place], she has not had any other medications or excursions. She denies any recent sick contacts. A-FIB/CHADSVASC A-FIB History Current/History of A-Fib/PAF?: No Review of Systems Other systems Constitutional: Denies fevers, chills, or night sweats. Endorses a greater than 40 pound weight loss in the last year Eyes: Denies visual changes, double vision, blurry vision, floaters, or feeling like a curtain pulled down. Ear nose throat: Denies runny nose, epistaxis, sinus pain, tinnitus, sore throat, or odynophasia Cardiovascular: Denies chest pain, shortness of breath, paroxysmal nocturnal dyspnea, orthopnea, edema, or palpitations. Respiratory: Denies cough, sputum production, wheezes, hemoptysis, or shortness of breath Gastrointestinal: Endorses abdominal pain, loss of appetite, nausea, vomiting, and chronic diarrhea. She denies constipation, obstipation, hematemesis, hematochezia, melena, or tenesmus Musculoskeletal: Denies joint swelling, decreased range of motion, crepitus, or new arthritis Integumentary: Denies pruritus, rashes, or lesions. Positive for yellowing of the skin and sclera Neuro: Denies any changes to sight/smell/hearing/taste, seizures, faint, headaches, paresthesias, anesthesias Psychiatric: Denies depression, paranoia, anhedonia, or episodes of martha. Endorses a history of anxiety Endocrine: Denies increased appetite, tremor, palpitations, constipation, dry skin, polydipsia, polyuria, polyphagia. Endorses history of hypothyroidism Hematologic: Denies any anemia, purpura, or petechiae. Denies easy bruising or bleeding Lymphatic: Denies any new lumps or bumps anywhere Physical Examination Other physical findings General: Pleasant female, who looks much younger than her stated age, lying in the stretcher in the emergency department in no acute distress. HEENT: Sclera are icteric, as are her conjunctiva bilaterally. She has yellowing under the tongue. She has an upper denture, and a lower partial denture. Posterior pharynx is free of exudate or erythema in the tongue is midline. Extraocular eye movements are intact without nystagmus. Neck: Supple, no masses, no JVD. Heart: Regular rate and rhythm; no murmurs, gallops, or rubs. PMI is not displaced Lungs: Clear to auscultation bilaterally, no wheezes, rhonchi, or rales Abdomen: Obese, soft, nondistended. Hyperactive bowel sounds appreciated in all 4 quadrants. There is generalized tenderness to palpation, especially in the middle/upper right quadrant. No rebound, guarding, or rigidity Back: Right-sided oblique scar at the level of the right kidney. No CVA tenderness bilaterally Extremities: No lower extremity edema bilaterally. Capillary refill is less than 2 seconds in all 4 extremities. Pulses are 2+ and brisk throughout Integumentary: The patient is completely jaundiced, her skin has a squires-tish hue. There are no telangiectasias or bruising Neuro: Answers questions appropriately, alert and oriented times 3. Sensation in tact throughout. Muscle strength 5 out of 5 in all 4 extremities. Cranial nerves II through XII grossly intact. Psych: Mood and affect are appropriate Vital Signs Vital Signs Date Time Temp Pulse Resp B/P (MAP) Pulse Ox O2 Delivery O2 Flow Rate FiO2 10/13/19 15:01 71 16 164/77 (106) 100 Room Air 10/13/19 12:03 97.4 Laboratory Data Labs 24H Laboratory Tests 2 10/13/19 12:26: Immature Granulocyte % (Auto) , Neutrophils (%) (Auto) , Nucleated Red Blood Cells % (auto) 0.0, Neutrophils 82H, Band Neutrophils 2, Lymphocytes (Manual) 15L, Myelocytes 1H, Anisocytosis 1+, Toxic Granulation 1+, Dohle Bodies 1+, Platelet Estimate NORMAL 10/13/19 12:28: Anion Gap 9, Glomerular Filtration Rate > 60.0, Uric Acid 3.0, Calcium Level 9.1, Phosphorus Level 3.3, Total Bilirubin 20.2*H, Direct Bilirubin 13.1H, Aspartate Amino Transf (AST/SGOT) 210H, Alanine Aminotransferase (ALT/SGPT) 264H, Alkaline Phosphatase 986H, Total Creatine Kinase 114, Creatine Kinase MB < 1.0, Creatine Kinase MB Relative Index 0.88, Troponin I < 0.02, Total Protein 6.3L, Albumin 3.2, Albumin/Globulin Ratio 1.03, Lipase 143 10/13/19 13:18: Lactic Acid Level 0.7 CBC/BMP Laboratory Tests 10/13/19 12:26 10/13/19 12:28 Microbiology Microbiology 10/13/19 Blood Culture, Received Pending Assessment/Plan Assessment: This is a 69-year-old woman who was recently diagnosed with adenocarcinoma of the head of the pancreas and had her first dose of chemotherapy (Folfirinox) on 10/07/2019 with subsequent increased nausea, vomiting, and weakness. In the emergency department she was noted to be much more jaundiced with an elevated total bilirubin of 20.2 and direct bilirubin of 13.1. CT of the abdomen and p sheri revealed progressive biliary ductal dilation, both intrahepatic and extrahepatic associated with inferior pancreatic head mass, as well as progressive dilation of the pancreatic duct. She was admitted to the hospital with gastroenterology on consultation for potential ERCP and biliary stent pl acement. Plan: 1. Jaundice. This is been chronic, however for the patient and his increased. Looking back at her labs, her last bilirubin a week ago was 10.4. Normal potassium, uric acid, and phosphorus rule out tumor lysis syndrome.She does have CT evidence of progression of her oncologic disease, and based on her labs this is likely obstructive. Her case has been discussed with her medical oncologist, Dr. Ashton. We will give her aggressive fluids, per his recommendations. 2. Pancreatic mass. The patient does have known adenocarcinoma of the pancreas. She has just completed her first round of Folfirinox chemotherapy. Unfortunately, her CT of the abdomen and pelvis shows progression of her disease process with dilation of intra-and extrahepatic as well as pancreatic ducts. Dr. Su from gastroenterology has been consulted, appreciate his help. She will be made nothing by mouth, with IV fluids, and he is planning to do an ERCP tomorrow with potential stenting. Fortunately she is not leukopenic at this point. 3. Nausea and vomiting. We will pursue aggressive anti-medics, including Zofran and Compazine. Negative Phenergan if needed as well. 4. Abdominal pain. Right now her abdomen is sore. We discussed potential pain medications. She does not think that she necessarily needs them right now, so we will hold off on this point. There is concern that if we give her morphine it can cause the Sphincter of Oddi to spasm. She does not wish to be put on Dilaudid or fentanyl at this time. 5. Hypertension. At this point she is nothing by mouth. She was borderline hypotensive upon her arrival to the emergency department. She is getting IV fluids at this time. We will give her hydralazine 10 mg IV as needed for systolic greater than 160. Her home blood pressure medications may be added back when she is able to tolerate oral intake. 6. GERD. IV Protonix 40 mg twice a day 7. Hypothyroidism. I have converted her oral Synthroid to IV, so she will be getting 50 mcg daily starting tomorrow. May move her back to her oral formulation when appropriate. 8. Anxiety. Home Lexapro on hold 9. Hyperlipidemia. Atorvastatin on hold 10. Coronary artery disease status post myocardial infarction. No chest pain. We will be getting an echocardiogram as she has not had one in several years. Aspirin is on hold at this point because she is nothing by mouth. 11. DVT prophylaxis. Resume home Xarelto when able to tolerate oral intake. For now she will be on Lovenox, which will be held tomorrow morning. Disposition: Pending clinical improvement, recommendations from GI. Plan / VTE VTE Prophylaxis Ordered?: Yes GME ATTESTATION GME ATTESTATION My faculty preceptor for this patient encounter was physically present during the encounter and was fully available. All aspects of the patient interview, examination, medical decision making process, and medical care plan development were reviewed and approved by the faculty preceptor. The faculty preceptor is aware and concurs with the plan as stated in the body of this note and will attest to such by his/her cosignature. ATTENDING NOTE I, Kimberly Aranda, have independently examined this patient and performed my own physical exam, as well as reviewed the documentation and edited where necessary. I have discussed in detail with the resident / student the findings and plan of treatment as documented by the resident / student and edited their note. I agree with their findings and treatment plan and have edited their documentation. I will continue to follow the patient during this hospital stay. MAGY WYATT D.O. Oct 13, 2019 16:46 KIMBERLY ARANDA MD Oct 20, 2019 17:16
[2019-10-13] MEDS: D5W/0.45% SODIUM CHLORIDE 1,000 ML IV SCH ×2 (16:51→20:21)
[2019-10-13] MEDS: PIPERACILLIN/TAZOBACTAM SOD 3.375 GM in D5W MINI-BAG PLUS 50 ML IV SCH ×2 (16:51→22:30)
[2019-10-13] MEDS: ENOXAPARIN 40 MG/0.4 ML SYRINGE (J1650) SC SCH (16:52)
[2019-10-13 17:36] LABS: INR 2.13; PROTHROMBIN TIME 23.6 SECONDS (11.8-14.0)
[2019-10-13 20:00] VITALS: BP 134/63
[2019-10-13] MEDS: PANTOPRAZOLE 40MG INJ (PROTONIX) (C9113) IV SCH (20:21)
[2019-10-14] VITALS (9 sets, daily range): BP systolic 105–161; BP diastolic 56–71
[2019-10-14] MEDS: D5W/0.45% SODIUM CHLORIDE 1,000 ML IV SCH ×2 (05:11→18:45)
[2019-10-14] MEDS: PIPERACILLIN/TAZOBACTAM SOD 3.375 GM in D5W MINI-BAG PLUS 50 ML IV SCH ×4 (05:11→23:34)
[2019-10-14 06:00] LABS: INR 2.64; PROTHROMBIN TIME 28.1 SECONDS (11.8-14.0)
[2019-10-14 06:11] LABS: PHOSPHORUS LEVEL 2.4 MG/DL (2.5-4.9)
[2019-10-14 07:24] LABS: MEAN CORPUSCULAR HEMOGLOBIN 30.2 pg (27.0-33.0); MEAN CORPUSCULAR HGB CONC 33.6 g/dl (32.0-36.5); PLATELET COUNT, AUTOMATED 157 10^3/uL (150-450); RED BLOOD COUNT 3.11 10^6/uL (4.00-5.40); WHITE BLOOD COUNT 7.3 10^3/uL (4.0-10.0)
[2019-10-14 07:25] LABS: HEMOGLOBIN 9.4 g/dl (12.0-15.5)
[2019-10-14 07:39] LABS: ALBUMIN 2.7 GM/DL (3.2-5.2); ALT/SGPT 212 U/L (12-78); BILIRUBIN,TOTAL 11.4 MG/DL (0.2-1.0); BLOOD UREA NITROGEN 18 MG/DL (7-18); CALCIUM LEVEL 8.3 MG/DL (8.8-10.2); CARBON DIOXIDE LEVEL 24 MEQ/L (21-32); CHLORIDE LEVEL 109 MEQ/L (98-107); CREATININE FOR GFR 0.71 MG/DL (0.55-1.30); GLOMERULAR FILTRATION RATE > 60.0 (>39); GLUCOSE, FASTING 106 MG/DL (70-100); POTASSIUM SERUM 4.2 MEQ/L (3.5-5.1); SODIUM LEVEL 142 MEQ/L (136-145); TOTAL PROTEIN 5.7 GM/DL (6.4-8.2)
[2019-10-14 07:45] LABS: LYMPHOCYTES 35 % (16-44); NEUTROPHILS 65 % (28-66); PLATELET ESTIMATE NORMAL (NORMAL)
[2019-10-14] MEDS ORDERED: LEVOTHYROXINE 100 MCG (0.1MG) VIAL IV SCH (09:00)
[2019-10-14] MEDS ORDERED: ENOXAPARIN 40 MG/0.4 ML SYRINGE (J1650) SC SCH (09:00)
[2019-10-14] MEDS: PANTOPRAZOLE 40MG INJ (PROTONIX) (C9113) IV SCH ×2 (09:40→20:48)
[2019-10-14] MEDS ORDERED: SODIUM PHOSPHATE INJ 30 MMOL in D5W 500 ML IV ONE (10:00)
--- NOTE | 2019-10-14 11:58 | IPNPDOC ---
Text Note Date of Service The patient was seen on 10/14/19. NOTE S: Pt seen this morning. She states that she is doing well and feeling better from yesterday. She states that she feels as if she has more energy and is less groggy. She denies any overnight issues or acute complaints. She denies any CP, SOB, headache, abd pain, N/V/D. O: General: Pleasant female, who looks much younger than her stated age, lying on her left side in bed. HEENT: Sclera are icteric, as are her conjunctiva bilaterally. She has yellowing under the tongue. She has an upper denture, and a lower partial denture. Posterior pharynx is free of exudate or erythema in the tongue is midline. Extraocular eye movements are intact without nystagmus. Neck: Supple, no masses, no JVD. Heart: Regular rate and rhythm; no murmurs, gallops, or rubs. PMI is not displaced Lungs: Clear to auscultation bilaterally, no wheezes, rhonchi, or rales Abdomen: Obese, soft, nondistended. Normal bowel sounds appreciated in all 4 quadrants. Tenderness in the epigastrium to light palpation. No rebound, guarding, or rigidity. Back: Right-sided oblique scar at the level of the right kidney. No CVA tenderness bilaterally Extremities: No lower extremity edema bilaterally. Capillary refill is less than 2 seconds in all 4 extremities. Pulses are 2+ and brisk throughout Integumentary: The patient is completely jaundiced, her skin has a squires-tish hue. There are no telangiectasias or bruising noted. Neuro: Answers questions appropriately, alert and oriented times 3. 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 In the ER she was noted to be much more jaundiced with an elevated total bilirubin of 20.2 and direct bilirubin of 13.1. CT of the abdomen and pelvis revealed progressive biliary ductal dilation, both intrahepatic and extrahepatic associated with inferior pancreatic head mass, as well as progressive dilation of the pancreatic duct. She was admitted to the hospital with gastroenterology on consultation for potential ERCP and biliary stent placement. P: Acute on Chronic Jaundice - likely 2/2 obstructive etiology 2/2 progressive pancreatic CA - Looking back at her labs, her last bilirubin a week ago was 10.4. - Normal potassium, uric acid, and phosphorus; unlikely 2/2 tumor lysis syndrome. - She does have CT evidence of progression of her oncologic disease, and based on her labs this is likely obstructive. - Unfortunately, her CT of the abdomen and pelvis shows progression of her disease process with dilation of intra-and extrahepatic as well as pancreatic ducts. - She has just completed her first round of Folfirinox chemotherapy. - Dr. Su from gastroenterology has been consulted, appreciate his help; plan for ERCP today if possible - She will be made nothing by mouth, with IV fluids, and he is planning to do an ERCP today with potential stenting. - If stenting is not possible consultation with interventional radiology will be placed. - Her case has been discussed with her medical oncologist, Dr. Ashton. Supratheraputic INR - possibly 2/2 liver disfunction, possibly 2/2 Xarelto? - Patient was thought to be on Xarelto for single dose as an outpatient based on documentation, however, there is no evidence of receiving Xarelto on record - Discussion with Dr. Ashton about role of Xarelto in the past - was thought to be 2/2 mesenteric thrombus? (no documented evidence of this on record here) - As per Dr. Su; FFP to help reduce INR to <2.0 to perform ERCP - Request records from [facility] -Hypophosphatemia. Started sodium phosphate infusion. Will continue to reassess. -Nausea and vomiting. We will pursue aggressive anti-medics, including Zofran and Compazine. Phenergan if needed as well. -Abdominal pain. We discussed potential pain medications. She does not think ivana t she necessarily needs them right now, so we will hold off on this point. There is concern that if we give her morphine it can cause the Sphincter of Oddi to spasm. She does not wish to be put on Dilaudid or fentanyl at this time. -Hypertension. At this point she is nothing by mouth. She was borderline hypotensive upon her arrival to the emergency department. She is getting IV fluids at this time. We will give her hydralazine 10 mg IV as needed for systolic greater than 160. Her home blood pressure medications may be added back when she is able to tolerate oral intake. -GERD. IV Protonix 40 mg twice a day -Hypothyroidism. I have converted her oral Synthroid to IV, so she will be getting 50 mcg daily starting tomorrow. May move her back to her oral formulation when appropriate. -Anxiety. Home Lexapro on hold -Hyperlipidemia. Atorvastatin on hold Coronary artery disease - Questionable history of myocardial infarction in past. - No chest pain. - We will be getting an echocardiogram as she has not had one in several years. - Aspirin is on hold at this point because she is nothing by mouth. DVT prophylaxis - c/w TEDs/Sequentials at this time Disposition: Pending clinical improvement, recommendations from GI. Plan / VTE VTE Prophylaxis Ordered?: Yes VS,Fishbone, I+O VS, Fishbone, I+O Laboratory Tests 10/13/19 12:26 10/13/19 12:28 10/14/19 05:00 Vital Signs Date Time Temp Pulse Resp B/P (MAP) Pulse Ox O2 Delivery O2 Flow Rate FiO2 10/14/19 08:00 97.0 58 18 113/57 (75) 100 Room Air I&O- Last 24 Hours up to 6 AM 10/14/19 06:00 Intake Total 2035 ml Output Total 500 ml Balance 1535 ml GME ATTESTATION GME ATTESTATION My faculty preceptor for this patient encounter was physically present during the encounter and was fully available. All aspects of the patient interview, examination, medical decision making process, and medical care plan development were reviewed and approved by the faculty preceptor. The faculty preceptor is aware and concurs with the plan as stated in the body of this note and will attest to such by his/her cosignature. ATTENDING NOTE I, Kimberly Aranda, have independently examined this patient and performed my own physical exam, as well as reviewed the documentation and edited where necessary. I have discussed in detail with the resident / student the findings and plan of treatment as documented by the resident / student and edited their note. I agree with their findings and treatment plan and have edited their documentation. I will continue to follow the patient during this hospital stay. ASHLEY VARELA OMS-3 Oct 14, 2019 11:58 KIMBERLY ARANDA MD Oct 14, 2019 13:47
[2019-10-14 14:57] LABS: INR 2.34; PROTHROMBIN TIME 25.5 SECONDS (11.8-14.0)
[2019-10-14] MEDS ORDERED: PHYTONADIONE 5 MG TAB PO ONE (16:00)
--- NOTE | 2019-10-14 22:06 | ECHO ---
DATE OF PROCEDURE: 10/14/2019 REFERRING PHYSICIAN: Dr. Angi Mi INDICATION: Coronary disease, myocardial infarct. HEIGHT: 165 cm WEIGHT: 74 kg 2D MEASUREMENTS: Aortic root: 3.2 cm Left atrium: 3.4 cm Ventricular septum: 1.23 cm Posterior wall: 1.06 cm Left ventricle diastole: 5.4 cm Aortic root: 2.3 cm Left atrial volume index: 31 Inferior vena cava: 1.5 cm (more than 50% respiratory variation). DOPPLER MEASUREMENTS: Aortic valve velocity: 120 cm/s LVOT velocity: 69.2 cm/s Very mild aortic regurgitation. Very mild mitral regurgitation. Mitral E velocity: 66.1 cm/s Mitral A velocity: 76.0 cm/s Mitral deceleration time: 243 ms Very mild tricuspid regurgitation. Estimated right ventricle systolic pressure 26-31 mmHg assuming a right atrial pressure of 5-10 mmHg. Pulmonary artery systolic pressure: 22 mmHg MITRAL ANNULAR TISSUE DOPPLER: E prime septal: 5.6 cm/s E prime lateral: 6.2 cm/s DESCRIPTION: Rhythm was sinus bradycardia. Image quality was fair. No pericardial effusion. Some PVCs were observed. This was a 2D, M-mode, color flow Doppler and pulse wave Doppler examination that included mitral annular tissue Doppler. CONCLUSIONS: 1. Normal left ventricle internal dimensions. Borderline concentric left ventricle hypertrophy. No regional wall motion abnormalities of left ventricle. Normal left ventricle (LV) systolic function. Left ventricular ejection fraction (LVEF) 60% by visual estimate. Grade 1 left ventricle (LV) diastolic dysfunction (impaired relaxation filling pattern). 2. Mild left atrial dilatation. 3. Mild aortic valve sclerosis of a three-cuspid aortic valve. Very mild aortic regurgitation. 4. Otherwise normal appearing echocardiogram Doppler findings.
[2019-10-14] MEDS ORDERED: SODIUM CHLORIDE NASAL 0.65% SPRAY BTL (OCEAN) PRN (23:45)
[2019-10-15] VITALS (9 sets, daily range): BP systolic 117–156; BP diastolic 55–71
[2019-10-15] MEDS: D5W/0.45% SODIUM CHLORIDE 1,000 ML IV SCH ×2 (02:21→09:46)
[2019-10-15] MEDS: PIPERACILLIN/TAZOBACTAM SOD 3.375 GM in D5W MINI-BAG PLUS 50 ML IV SCH ×3 (05:18→17:56)
--- NOTE | 2019-10-15 06:21 | ECGEPIP ---
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
[2019-10-15 06:43] LABS: HEMATOCRIT 23.7 % (36.0-47.0); MEAN CORPUSCULAR HEMOGLOBIN 30.4 pg (27.0-33.0); MEAN CORPUSCULAR HGB CONC 33.8 g/dl (32.0-36.5); MEAN CORPUSCULAR VOLUME 90.1 fl (80.0-96.0); PLATELET COUNT, AUTOMATED 135 10^3/uL (150-450); RED BLOOD COUNT 2.63 10^6/uL (4.00-5.40); WHITE BLOOD COUNT 2.8 10^3/uL (4.0-10.0)
[2019-10-15 06:56] LABS: INR 1.39; PROTHROMBIN TIME 16.8 SECONDS (11.8-14.0)
[2019-10-15 07:12] LABS: ALBUMIN 2.6 GM/DL (3.2-5.2); ALT/SGPT 159 U/L (12-78); BILIRUBIN,TOTAL 11.3 MG/DL (0.2-1.0); BLOOD UREA NITROGEN 8 MG/DL (7-18); CALCIUM LEVEL 8.3 MG/DL (8.8-10.2); CARBON DIOXIDE LEVEL 27 MEQ/L (21-32); CHLORIDE LEVEL 109 MEQ/L (98-107); CREATININE FOR GFR 0.63 MG/DL (0.55-1.30); GLOMERULAR FILTRATION RATE > 60.0 (>39); GLUCOSE, FASTING 103 MG/DL (70-100); PHOSPHORUS LEVEL 2.4 MG/DL (2.5-4.9); POTASSIUM SERUM 3.2 MEQ/L (3.5-5.1); SODIUM LEVEL 140 MEQ/L (136-145); TOTAL PROTEIN 5.6 GM/DL (6.4-8.2)
[2019-10-15] MEDS ORDERED: POTASSIUM CHLORIDE 10 MEQ SR TABLET PO ONE (08:00)
[2019-10-15] MEDS ORDERED: POTASSIUM PHOSPHATE INJ 30 MMOL in D5W 500 ML IV ONE (09:00)
[2019-10-15 09:12] LABS: MAGNESIUM LEVEL 1.9 MG/DL (1.8-2.4)
[2019-10-15] MEDS: ESCITALOPRAM OXALATE 10 MG TAB (LEXAPRO) PO SCH (09:43)
[2019-10-15] MEDS: PANTOPRAZOLE 40MG TAB (PROTONIX) PO SCH (09:43)
[2019-10-15] MEDS: amLODIPine 10 MG TAB PO SCH (09:43)
[2019-10-15] MEDS: ENOXAPARIN 40 MG/0.4 ML SYRINGE (J1650) SC SCH (09:44)
[2019-10-15] MEDS: LEVOTHYROXINE 75MCG TABLET (0.075MG) PO SCH (09:46)
[2019-10-15] MEDS ORDERED: IBUPROFEN 400 MG TAB PO PRN (13:15)
[2019-10-15 14:13] LABS: HEMATOCRIT 23.3 % (36.0-47.0); HEMOGLOBIN 7.7 g/dl (12.0-15.5); MEAN CORPUSCULAR HEMOGLOBIN 30.2 pg (27.0-33.0); MEAN CORPUSCULAR VOLUME 91.4 fl (80.0-96.0); PLATELET COUNT, AUTOMATED 122 10^3/uL (150-450); RED BLOOD COUNT 2.55 10^6/uL (4.00-5.40); WHITE BLOOD COUNT 3.1 10^3/uL (4.0-10.0)
--- NOTE | 2019-10-15 14:36 | IPNPDOC ---
Text Note Date of Service The patient was seen on 10/15/19. NOTE S: Pt seen this morning sitting up in bed. She states that she is feeling well. She states that she had a mild headache overnight that has sense resolved. She denies any CP, SOB, headache, abd pain, N/V/D. O: General: Pleasant female, who looks much younger than her stated age, lying on her left side in bed. HEENT: Sclera remain icteric. She has yellowing under the tongue. She has an upper denture, and a lower partial denture. Posterior pharynx is free of exudate or erythema in the tongue is midline. Extraocular eye movements are intact without nystagmus. Neck: Supple, no masses, no JVD. Heart: Regular rate and rhythm; no murmurs, gallops, or rubs. PMI is not displaced Lungs: Clear to auscultation bilaterally, no wheezes, rhonchi, or rales Abdomen: Obese, soft, nondistended. Normal bowel sounds appreciated in all 4 quadrants. Less tenderness noted in the epigastrium. No rebound, guarding, or rigidity. Back: Right-sided oblique scar at the level of the right kidney. No CVA tenderness bilaterally Extremities: No lower extremity edema bilaterally. Capillary refill is less than 2 seconds in all 4 extremities. Pulses are 2+ and brisk throughout Integumentary: The patient is completely jaundiced, her skin has a squires-tish hue. There are no telangiectasias or bruising noted. Neuro: Answers questions appropriately, alert and oriented times 3. 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 In the ER she was noted to be much more jaundiced with an elevated total bilirubin of 20.2 and direct bilirubin of 13.1. CT of the abdomen and pelvis revealed progressive biliary ductal dilation, both intrahepatic and extrahepatic associated with inferior pancreatic head mass, as well as progressive dilation of the pancreatic duct. She was admitted to the hospital with gastroenterology on consultation for potential ERCP and biliary stent placement. P: Acute on Chronic Jaundice - likely 2/2 obstructive etiology 2/2 progressive beckman creatic CA - Looking back at her labs, her last bilirubin a week ago was 10.4. - Normal potassium, uric acid, and phosphorus; unlikely 2/2 tumor lysis syndrome. - She does have CT evidence of progression of her oncologic disease, and based on her labs this is likely obstructive. - Unfortunately, her CT of the abdomen and pelvis shows progression of her disease process with dilation of intra-and extrahepatic as well as pancreatic ducts. - She has just completed her first round of Folfirinox chemotherapy. - Dr. Su from gastroenterology has been consulted, appreciate his help; plan for ERCP today if possible - She will be made nothing by mouth, with IV fluids, and he is planning to do an ERCP today with potential stenting. - If stenting is not possible consultation with interventional radiology will be placed. - Her case has been discussed with her medical oncologist, Dr. Ashton. Supratheraputic INR - possibly 2/2 liver disfunction, possibly 2/2 Xarelto? - Patient was thought to be on Xarelto for single dose as an outpatient based on documentation, however, there is no evidence of receiving Xarelto on record - Discussion with Dr. Ashton about role of Xarelto in the past - was thought to be 2/2 mesenteric thrombus? (no documented evidence of this on record here) - As per Dr. Su; FFP to help reduce INR to <2.0 to perform ERCP - Request records from [facility] - INR has resolved to 1.39 Pancytopenia- possibly 2/2 to Folfirinox chemotherapy or GI bleed -Hold Lovenox -Continue with IV Protonix -anemia workup -Transfuse 2 units of pRBC- discussed with pt in depth who is agreeable, consent within chart -Will continue to reassess -Hypophosphatemia. Restarted sodium phosphate infusion. Will continue to reassess. -Nausea and vomiting. We will pursue aggressive anti-medics, including Zofran and Compazine. Phenergan if needed as well. -Abdominal pain. We discussed potential pain medications. She does not think that she necessarily needs them right now, so we will hold off on this point. There is concern that if we give her morphine it can cause the Sphincter of Oddi to spasm. She does not wish to be put on Dilaudid or fentanyl at this time. -Hypertension. At this point she is nothing by mouth. She was borderline hypotensive upon her arrival to the emergency department. She is getting IV fluids at this time. We will give her hydralazine 10 mg IV as needed for systolic greater than 160. Her home blood pressure medications may be added back when she is able to tolerate oral intake. -GERD. IV Protonix 40 mg twice a day -Hypothyroidism. I have converted her oral Synthroid to IV, so she will be getting 50 mcg daily starting tomorrow. May move her back to her oral formulation when appropriate. -Anxiety. Home Lexapro on hold -Hyperlipidemia. Atorvastatin on hold Coronary artery disease - Questionable history of myocardial infarction in past. - No chest pain. - We will be getting an echocardiogram as she has not had one in several years. - Aspirin is on hold at this point because she is nothing by mouth. DVT prophylaxis - c/w TEDs/Sequentials at this time Disposition: Pending clinical improvement, recommendations from GI. Plan / VTE VTE Prophylaxis Ordered?: Yes VS,Fishbone, I+O VS, Fishbone, I+O Laboratory Tests 10/15/19 06:28 10/15/19 13:59 Vital Signs Date Time Temp Pulse Resp B/P (MAP) Pulse Ox O2 Delivery O2 Flow Rate FiO2 10/15/19 09:43 63 141/59 10/15/19 06:00 97.8 16 95 Room Air I&O- Last 24 Hours up to 6 AM 10/15/19 06:00 Intake Total 977 ml Output Total 1250 ml Balance -273 ml GME ATTESTATION GME ATTESTATION My faculty preceptor for this patient encounter was physically present during the encounter and was fully available. All aspects of the patient interview, examination, medical decision making process, and medical care plan development were reviewed and approved by the faculty preceptor. The faculty preceptor is aware and concurs with the plan as stated in the body of this note and will attest to such by his/her cosignature. GME ATTESTATION E ATTESTATION My faculty preceptor for this patient encounter was physically present during the encounter and was fully available. All aspects of the patient interview, examination, medical decision making process, and medical care plan development were reviewed and approved by the faculty preceptor. The faculty preceptor is aware and concurs with the plan as stated in the body of this note and will attest to such by his/her cosignature. ASHLEY VARELA OMS-3 Oct 15, 2019 14:36
[2019-10-15 15:35] LABS: PERCENT SATURATION 35.9 % (13.2-45.0)
--- NOTE | 2019-10-15 16:25 | IPNPDOC ---
Subjective Date Seen The patient was seen on 10/15/19. Subjective Chief Complaint/HPI Frances has complaints of jaundice and difficulty tolerating chemotherapy for her pancreatic mass. She reports she developed severe n/v and diarrhea a few dasy after chemotherapy and was admitted here for hydration and to control hr symptoms. I was contacted by marketing planner regarding a visit from palliative care. Today I spent time with Frances explaining what [facility] can offer her and we also spent considerable time talking about advance directives. She stated her 80 year old is her HCP along with her daughter Yesy as the second. It is Frances's opinion Yesy is probably more likely to be able to speak for her if she is unable to make her needs known. She does not have a MOLST form or living will. General: Reports: ROS Unobtainable, Chills, Night Sweats, Fatigue, Malaise, Normal Appetite, Other Symptoms Constitutional: Reports: Fatigue, Weight Loss Eyes: Denies: Pain, Vision change, Conjunctivae inflammation, Eyelid inflamma tion, Redness, Other ENT: Denies: Head Aches, Ear Pain, Dysphagia, Sinus Congestion, Post Nasal Drip, Sore Throat, Epistaxis, Other Symptoms Skin: Reports: Rash, Lesions, Jaundice, Bruising, Itching, Dry, Breakdown, Nail Changes, Other Pulmonary: Denies: Dyspnea, Cough, Pleuritic Chest Pain, Other Symptoms Cardiovascular: Denies: Chest Pain, Palpitations, Orthopnea, Paroxysmal Noc. Dyspnea, Edema, Lt Headedness, Other Symptoms Gastrointestinal: Reports: Nausea, Vomiting, Abdominal Pain, Diarrhea, Constipation, Melena, Hematochezia, Other Symptoms Genitourinary: Denies: Dysuria, Frequency, Incontinence, Hematuria, Retention, Other Symptoms Hematologic: Denies: Bruising, Bleeding Excessively, Petecchia, Purpura, Enlarged Lymph Nodes, Other Hematologic Endocrine: Denies: Polydipsia, Polyphagia, Polyuria, Heat Intolerance, Cold Intolerance, Other Endocrine Sx Musculoskeletal: Denies: Neck Pain, Back Pain, Shoulder Pain, Arm Pain, Hand Pain, Leg Pain, Foot Pain, Joint Pain, Muscle Pain, Spasms, Other Symptoms Neurological: Reports: Weakness, Numbness, Incoordination, Change in speech, Confusion, Seizures, Other Symptoms Psych: Reports: Mood Normal, Anxiety, Depression, Memory Issues, Thoughts of Self Harm, Anger, Thoughts of Harming Other, Other Psych Objective Physical Examination General Exam: Positive: Alert, Cooperative, No Acute Distress, Mild Distress, Moderate Distress, Severe Distress, Other Eye Exam: Positive: PERRLA, Conjunctiva & lids normal, EOMI, Sclera icteric, Ptosis, Other Eye Symptoms ENT Exam: Positive: Atraumatic, Mucous membr. moist/pink, Pharynx Normal, Tongue Midline, Pharyngeal Edema, Nares Patent, Tympanic Membranes Normal, Ext Auditory Canal Nml, Pinna Normal, Other ENT Neck Exam: Positive: Supple, JVD, thyromegaly, +2 carotid pulse wo bruit, Lymphadenopathy, Other Chest Exam: Positive: Clear to auscultation, Normal air movement Heart Exam: Positive: Rate Normal, Tachycardic, Bradycardic, Regular Rhythm, Irregular Rhythm, Normal S1, Normal S2, Gallops, Murmurs, Rubs, Other Abdomen Exam: Positive: Normal bowel sounds, BS Hyperactive, BS Hypoactive, Tenderness, Hepatospenomegaly, Mass, Hernia, Other Extremity Exam: Positive: Clubbing, Cyanosis, Edema, Tenderness, Swelling, Other; Negative: Normal pulses Skin Exam: Positive: Nl turgor and temperature, Rash, Breakdown, Lesion, Pruritus, Other skin issue Neuro Exam: Positive: Normal Gait, Normal Speech, Strength at 5/5 X4 ext, Normal Tone, Sensation Intact, Cranial Nerves 3-12 NL, Reflexes 2+, Other Psych Exam: Positive: Mental status NL, Mood NL, Anxiety, Memory Intact, Oriented x 3, Other Assessment /Plan Assessment Pancreatic cancer with obstructive tumor, jaundice Plan/VTE VTE Prophylaxis Ordered?: Yes Plan Advance Directives: Other Advance Directive (she will review 5 Wishes with her daughter.) Frances and I spent 30 minutes discussing the contents of MOLST form and the reasons why having one in place is a good idea for everyone. I brought her a blank form to review, along with "5 Wishes" which I advised her to rview with her family first, then review the MOLST form at her later. I explained MOLST must be completed with a medical provider. Frances understands the role of [facility] and knows how to contact the office. I will try to follow up with her tomorrow if she is able to be seen ( she anticipates having a procedure tomorrow ). VS, I&O, 24H, Fishbone Vital Signs/I&O Vital Signs Date Time Temp Pulse Resp B/P (MAP) Pulse Ox O2 Delivery O2 Flow Rate FiO2 10/15/19 14:00 98.1 61 17 134/58 (83) 97 Room Air I&O- Last 24 Hours up to 6 AM 10/15/19 06:00 Intake Total 977 ml Output Total 1250 ml Balance -273 ml Laboratory Data 24H LABS Laboratory Tests 2 10/15/19 06:28: Nucleated Red Blood Cells % (auto) 0.0, Prothrombin Time 16.8H, Prothromb Time International Ratio 1.39, Anion Gap 4L, Glomerular Filtration Rate > 60.0, Calcium Level 8.3L, Phosphorus Level 2.4L, Magnesium Level 1.9, Total Bilirubin 11.3H, Aspartate Amino Transf (AST/SGOT) 80H, Alanine Aminotransferase (ALT/SGPT ) 159H, Alkaline Phosphatase 590H, Total Protein 5.6L, Albumin 2.6L, Albumin/Globulin Ratio 0.87L 10/15/19 13:59: Nucleated Red Blood Cells % (auto) 0.0 10/15/19 14:56: Iron Level 79, Total Iron Binding Capacity 220L, Transferrin % Saturation 35.9, Ferritin 1983H CBC/BMP Laboratory Tests 10/15/19 06:28 10/15/19 13:59 Microbiology Microbiology 10/13/19 Blood Culture - Preliminary, Resulted No growth after 24 hours . All specim... 10/13/19 Blood Culture - Preliminary, Resulted No Growth after 48 hours. All Specime... Marii IVY [facility] Oct 15, 2019 16:26
[2019-10-15] MEDS: ACETAMINOPHEN TAB 650MG DOSE (2X325MG) PO PRN (20:28)
[2019-10-15] MEDS: ROSUVASTATIN 10 MG TAB (CRESTOR) PO SCH (20:29)
[2019-10-15] MEDS: lisinopriL 10 MG TAB PO SCH (20:29)
[2019-10-16] VITALS (10 sets, daily range): BP systolic 131–147; BP diastolic 54–95
[2019-10-16] MEDS: PIPERACILLIN/TAZOBACTAM SOD 3.375 GM in D5W MINI-BAG PLUS 50 ML IV SCH ×5 (01:49→23:19)
[2019-10-16 03:15] LABS: MEAN CORPUSCULAR HEMOGLOBIN 29.5 pg (27.0-33.0); MEAN CORPUSCULAR HGB CONC 33.4 g/dl (32.0-36.5); MEAN CORPUSCULAR VOLUME 88.1 fl (80.0-96.0); PLATELET COUNT, AUTOMATED 119 10^3/uL (150-450); RED BLOOD COUNT 3.29 10^6/uL (4.00-5.40)
[2019-10-16 03:16] LABS: HEMOGLOBIN 9.7 g/dl (12.0-15.5)
[2019-10-16] MEDS: D5W/0.45% SODIUM CHLORIDE 1,000 ML IV SCH ×2 (05:57→15:04)
[2019-10-16] MEDS: LEVOTHYROXINE 75MCG TABLET (0.075MG) PO SCH (05:57)
[2019-10-16 06:27] LABS: HEMATOCRIT 29.2 % (36.0-47.0); INR 1.28; MEAN CORPUSCULAR HEMOGLOBIN 29.9 pg (27.0-33.0); MEAN CORPUSCULAR HGB CONC 34.2 g/dl (32.0-36.5); MEAN CORPUSCULAR VOLUME 87.2 fl (80.0-96.0); PLATELET COUNT, AUTOMATED 122 10^3/uL (150-450); PROTHROMBIN TIME 15.7 SECONDS (11.8-14.0); RED BLOOD COUNT 3.35 10^6/uL (4.00-5.40); WHITE BLOOD COUNT 2.7 10^3/uL (4.0-10.0)
[2019-10-16 06:49] LABS: ALBUMIN 2.6 GM/DL (3.2-5.2); ALT/SGPT 147 U/L (12-78); BILIRUBIN,TOTAL 10.8 MG/DL (0.2-1.0); BLOOD UREA NITROGEN 3 MG/DL (7-18); CALCIUM LEVEL 8.5 MG/DL (8.8-10.2); CARBON DIOXIDE LEVEL 27 MEQ/L (21-32); CHLORIDE LEVEL 111 MEQ/L (98-107); CREATININE FOR GFR 0.54 MG/DL (0.55-1.30); GLOMERULAR FILTRATION RATE > 60.0 (>39); GLUCOSE, FASTING 102 MG/DL (70-100); PHOSPHORUS LEVEL 2.3 MG/DL (2.5-4.9); POTASSIUM SERUM 3.2 MEQ/L (3.5-5.1); SODIUM LEVEL 141 MEQ/L (136-145); TOTAL PROTEIN 5.6 GM/DL (6.4-8.2)
--- NOTE | 2019-10-16 07:52 | IPNPDOC ---
Text Note Date of Service The patient was seen on 10/16/19. NOTE S: Pt seen this morning laying in bed. She states that she is feeling better after her blood transfusion and is eagerly awaiting her procedure today. She states that yesterday she had one episode of watery diarrhea with some cramping. In addition she notes some RUQ pain that seems to have improved slightly with her bowel movement. She denies any CP, SOB, headache, abd pain, N/V. O: General: Pleasant female, who looks much younger than her stated age, laying in bed. HEENT: Sclera remain icteric. She has yellowing under the tongue. She has an upper denture, and a lower partial denture. Posterior pharynx is free of exudate or erythema in the tongue is midline. Extraocular eye movements are intact without nystagmus. Neck: Supple, no masses, no JVD. Heart: Regular rate and rhythm; no murmurs, gallops, or rubs. PMI is not displaced Lungs: Clear to auscultation bilaterally, no wheezes, rhonchi, or rales Abdomen: Obese, soft, nondistended. Normal bowel sounds appreciated in all 4 quadrants. Less tenderness noted in the epigastrium. Moderate tenderness in the RUQ. No rebound, guarding, or rigidity. Back: Right-sided oblique scar at the level of the right kidney. No CVA tenderness bilaterally Extremities: No lower extremity edema bilaterally. Capillary refill is less than 2 seconds in all 4 extremities. Pulses are 2+ and brisk throughout Integumentary: The patient is completely jaundiced, her skin has a squires-tish hue. There are no telangiectasias or bruising noted. Neuro: Answers questions appropriately, alert and oriented times 3. 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 In the ER she was noted to be much more jaundiced with an elevated total bilirubin of 20.2 and direct bilirubin of 13.1. CT of the abdomen and pelvis revealed progressive biliary ductal dilation, both intrahepatic and extrahepatic associated with inferior pancreatic head mass, as well as progressive dilation of the pancreatic duct. She was admitted to the hospital with gastroenterology on consultation for potential ERCP and biliary stent placement. P: Acute on Chronic Jaundice - likely 2/2 obstructive etiology 2/2 progressive pancreatic CA - Looking back at her labs, her last bilirubin a week ago was 10.4. - Normal potassium, uric acid, and phosphorus; unlikely 2/2 tumor lysis syndrome. - She does have CT evidence of progression of her oncologic disease, and based on her labs this is likely obstructive. - Unfortunately, her CT of the abdomen and pelvis shows progression of her disease process with dilation of intra-and extrahepatic as well as pancreatic ducts. - She has just completed her first round of Folfirinox chemotherapy. - Dr. Su from gastroenterology has been consulted, appreciate his help; plan for ERCP today 10/16/2019. - If stenting is not possible consultation with interventional radiology will be placed. - Her case has been discussed with her medical oncologist, Dr. Ashton. - Pt seen by Marii Bojorquez BOOT REPAIRER for palliative care consult Supratheraputic INR, resolved- possibly 2/2 liver disfunction, possibly 2/2 Xarelto? - Patient was thought to be on Xarelto for single dose as an outpatient based on documentation, however, there is no evidence of receiving Xarelto on record - Discussion with Dr. Ashton about role of Xarelto in the past - was thought to be 2/2 mesenteric thrombus - As per Dr. 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 Doe who does not believe the pt needs any intervention at this time - Plan to start xarelto tomorrow morning for anticoagulation Pancytopenia- possibly 2/2 to Folfirinox chemotherapy, less likely GI bleed as the pt has not had any bloody bowel movements -Hold Lovenox -Continue with IV Protonix -Anemia workup showed ACD picture -Transfused 2 units of pRBC-tolerated well -Differential order to see if pt needs chemo precautions -Will discuss possibility of Neupogen with oncology if WBC continues to decline -Will continue to reassess Hypophosphatemia likely 2/2 to dec oral intake -Remains low after inial phosphate Infusion -Will repeat infusion -Likely to improve when she resumes normal diet -Will continue to reassess. -Nausea and vomiting. We will pursue aggressive anti-medics, including Zofran and Compazine. Phenergan if needed as well. Abdominal pain likely 2/2 to biliary distention -Pain medication discussed with pt and refused -Will reassess after ERCP -Hypertension. At this point she is nothing by mouth. She was borderline hypotensive upon her arrival to the emergency department. She is getting IV fluids at this time. We will give her hydralazine 10 mg IV as needed for systolic greater than 160. Her home blood pressure medications may be added back when she is able to tolerate oral intake. -GERD. IV Protonix 40 mg twice a day -Hypothyroidism. I have converted her oral Synthroid to IV, so she will be getting 50 mcg daily starting tomorrow. May move her back to her oral formulation when appropriate. -Anxiety. Home Lexapro on hold -Hyperlipidemia. Atorvastatin on hold Coronary artery disease - Questionable history of myocardial infarction in past. - No chest pain. - We will be getting an echocardiogram as she has not had one in several years. - Aspirin is on hold at this point because she is nothing by mouth. DVT prophylaxis - c/w TEDs/Sequentials at this time Disposition: Advance diet as tolerated. Likely DC tomorrow. Plan / VTE VTE Prophylaxis Ordered?: Yes VS,Mackenzie, I+O VS, Mackenzie, I+O Laboratory Tests 10/15/19 13:59 10/16/19 02:53 10/16/19 05:56 Vital Signs Date Time Temp Pulse Resp B/P (MAP) Pulse Ox O2 Delivery O2 Flow Rate FiO2 10/16/19 06:00 98.5 70 17 137/69 (91) 99 10/16/19 01:45 Room Air I&O- Last 24 Hours up to 6 AM 10/16/19 06:00 Intake Total 3460 ml Output Total 0 ml Balance 3460 ml GME ATTESTATION GME ATTESTATION My faculty preceptor for this patient encounter was physically present during the encounter and was fully available. All aspects of the patient interview, examination, medical decision making process, and medical care plan development were reviewed and approved by the faculty preceptor. The faculty preceptor is aware and concurs with the plan as stated in the body of this note and will attest to such by his/her cosignature. ASHLEY VARELA OMS-3 Oct 16, 2019 07:52
[2019-10-16 08:01] LABS: EOSINOPHILS 5 % (0-3); LYMPHOCYTES 54 % (16-44); MONOCYTES 1 % (0-5); NEUTROPHILS 39 % (28-66); PLATELET ESTIMATE NORMAL (NORMAL)
[2019-10-16] MEDS: PANTOPRAZOLE 40MG TAB (PROTONIX) PO SCH ×2 (09:36→17:52)
[2019-10-16] MEDS: ESCITALOPRAM OXALATE 10 MG TAB (LEXAPRO) PO SCH (09:36)
[2019-10-16] MEDS: amLODIPine 10 MG TAB PO SCH (09:39)
[2019-10-16] MEDS ORDERED: POTASSIUM PHOSPHATE INJ 30 MMOL in D5W 500 ML IV ONE (10:00)
[2019-10-16 11:59] LABS: MAGNESIUM LEVEL 1.8 MG/DL (1.8-2.4)
[2019-10-16] MEDS ORDERED: fentaNYL 100 MCG/2 ML INJECTION (J3010) As Ordered ONE (12:07)
[2019-10-16] MEDS ORDERED: MIDAZOLAM INJ 2 MG/2 ML VIAL (J2250) As Ordered ONE (12:07)
[2019-10-16] MEDS ORDERED: ONDANSETRON 4MG/2ML VIAL (J2405) As Ordered ONE (12:08)
[2019-10-16] MEDS ORDERED: SUGAMMADEX SODIUM 500 MG/5 ML VIAL (BRIDION) As Ordered ONE (12:08)
[2019-10-16] MEDS ORDERED: ROCURONIUM BROMIDE 50 MG/5 ML VIAL As Ordered ONE (12:08)
[2019-10-16] MEDS ORDERED: propofoL 200 MG/20 ML VIAL As Ordered ONE (12:08)
[2019-10-16] MEDS ORDERED: dexameTHASONE 4 MG/ML 1ML VIAL (J1100) As Ordered ONE (12:08)
[2019-10-16] MEDS ORDERED: SUCCINYLCHOLINE 100 MG/5 ML SYRINGE (J0330) As Ordered ONE (12:08)
[2019-10-16] MEDS ORDERED: LIDOCAINE 2% INJ 100 MG/5 ML SDV (FOR ANES.) As Ordered ONE (12:08)
[2019-10-16] MEDS ORDERED: GLUCAGON FOR INJ 1 MG VIAL (J1610) As Ordered ONE (12:16)
[2019-10-16] MEDS ORDERED: ISOVUE-300 61% 50ML VIAL (Q9967) As Ordered ONE (12:16)
[2019-10-16] MEDS ORDERED: METOCLOPRAMIDE INJ 10MG/2ML VIAL (J2765) As Ordered ONE (13:34)
--- NOTE | 2019-10-16 13:42 | ROOR ---
Patient Name: Frances Heart Procedure Date: 10/16/2019 12:35 PM Date of : 1950 Age: 69 Room: Main OR Gender: Female Note Status: Finalized Procedure: ERCP + Papillotomy + Balloon Sweep + Metal Stent Placement Indications: Biliary dilation on Computed Tomogram Scan, Jaundice, Elevated liver enzymes, Malignant tumor of the head of pancreas, Stenting biliary / pancreatic ducts Providers: Dar Su MD Referring MD: Brandi BAEZ DO Requesting Provider: Medicines: General Anesthesia Complications: No immediate complications. Procedure: Pre-Anesthesia Assessment: - The heart rate, respiratory rate, oxygen saturations, blood pressure, adequacy of pulmonary ventilation, and response to care were monitored throughout the procedure. The Duodenoscope was introduced through the mouth, and advanced to the duodenum and used to inject contrast into the bile duct. The ERCP was accomplished without difficulty. The patient tolerated the procedure well. Findings: The upper GI tract was traversed under direct vision without detailed examination. The major papilla was normal. The bile duct was deeply cannulated with the short-nosed traction sphincterotome. Contrast was injected. I personally interpreted the bile duct images. Ductal flow of contrast was adequate. Image quality was adequate. Contrast extended to the entire biliary tree. A short 0.035 inch Soft Jagwire was passed into the biliary tree. Biliary sphincterotomy was made with a monofilament traction (standard) sphincterotome using ERBE electrocautery. There was no post-sphincterotomy bleeding. The biliary tree was swept with a 12 mm balloon starting at the bifurcation. Nothing was found. One 10 Fr by 6 cm covered metal stent was placed into the common bile duct. Bile flowed through the stent. The stent was in good position. The scope was passed through the upper GI tract under direct vision. Many non-bleeding cratered duodenal ulcers were found in the ampulla, in the duodenal bulb and in the first portion of the duodenum. Impression: - Multiple non-bleeding duodenal ulcers. - A biliary sphincterotomy was performed. - The biliary tree was swept and nothing was found. - One covered metal stent was placed into the common bile duct. - The examination was otherwise normal. Recommendation: - Avoid aspirin and nonsteroidal anti-inflammatory medicines. - Return patient to [facility] for ongoing care. - Continue present medications. - Return to referring physician. - Watch for pancreatitis, bleeding, perforation, and cholangitis. - Use Prilosec (omeprazole) 40 mg PO BID. - Use sucralfate tablets 1 gram PO BID. - The findings and recommendations were discussed with the patient, their spouse and family. Dar Su MD Dar Su MD 10/16/2019 1:42:06 PM Electronically signed by Dar Su MD Number of Addenda: 0 Note Initiated On: 10/16/2019 12:35 PM Estimated Blood Loss: Estimated blood loss: none.
[2019-10-16] MEDS ORDERED: XARE15TA PO (13:55)
--- NOTE | 2019-10-16 14:14 | REP ---
C-ARM VIEWS DURING ERCP: Multiple C-arm views are performed. Common bile duct was catheterized and contrast is injected. Common bile duct is partially opacified and there are some intrahepatic ducts identified. There is placement of a stent in the common bile duct and it appears to cross the ampulla of Vater. Fluoroscopy time is 2 minutes 8 seconds. Electronically Signed by Justin Cervantes MD 10/20/2019 03:57 P
[2019-10-16] MEDS ORDERED: LR 1,000 ML IV SCH (14:15)
[2019-10-16] MEDS ORDERED: PERCOCET 5MG/325MG TAB PO PRN (14:15)
[2019-10-16] MEDS ORDERED: ONDANSETRON 4MG/2ML VIAL (J2405) IV PRN (14:15)
[2019-10-16] MEDS ORDERED: fentaNYL 100 MCG/2 ML INJECTION (J3010) IV PRN (14:15)
[2019-10-16] MEDS ORDERED: MEPERIDINE INJ 25 MG/ML VIAL (J2175) IV PRN (14:15)
--- NOTE | 2019-10-16 15:49 | CR ---
DATE OF CONSULTATION: 10/14/2019 This is a 69-year white female who was admitted to [facility] for treatment evaluation post chemotherapy for a known diagnosis of a mass in the head of the pancreas with proven biopsy showing pancreatic adenocarcinoma. The patient has been ill approximately one year prior to the actual diagnosis in September of 2019. She has had some episodes of nausea and intermittent bouts of epigastric discomfort. No apparent fevers, night sweats, or shaking chills. Finally after continued symptoms, an abdominal CT was ordered and a mass was found in the head of the pancreas. She went down to [place] and had endoscopic ultrasound which a diagnosis of pancreatic carcinoma was made by fine-needle aspiration (FNA). She has been under chemotherapy in an attempt to reduce the size of the tumor prior to consideration for a with Whipple procedure. The patient is now admitted due to feeling weak and having bouts of diarrhea since she has been treated with chemotherapy. No complaints of melena, hematochezia, or bright blood per rectum. The patient has been apparently found to have an episode of a splenic infarction but was not started on Xarelto. MEDICATIONS AT HOME: Include amlodipine, aspirin 81 mg a day, Lexapro, levothyroxine, Creon, lisinopril, omeprazole, prochlorperazine, and a statin. The patient has no known allergies to medications. PAST MEDICAL HISTORY: As above, adenocarcinoma of the pancreas, hypothyroidism, hypertension. She is status post myocardial infarction in 1981 and 1992. She has a history of alcohol abuse and apparently stopped smoking at that time. She has known anxiety and reflux. PAST SURGICAL HISTORY: Status post dilation and curettage and hysterectomy for bleeding. She has kidney stones. FAMILY HISTORY: Father of heart attack, mother at age 72 cause unknown. She has a niece who apparently has had a diagnosis of brain cancer. SOCIAL HISTORY: Noncontributory to the above problem. REVIEW OF SYSTEMS: 12-point review of systems is noncontributory to the above problem. PHYSICAL EXAMINATION: GENERAL: This is a well-developed, well-nourished white female who appears her stated age. ABDOMEN: Soft, slight epigastric tenderness. No hepatosplenomegaly. Bowel sounds positive. CHEST: Clear to auscultation. CARDIOVASCULAR: Showed a regular rhythm. No murmurs or gallops. Normal physiological split, S1, S2. EXTREMITIES: No cyanosis, clubbing, or edema. Jesse's negative. LABORATORY STUDIES: On admission shows a white count of 12,000, hemoglobin and hematocrit of 11.6 and 34.7, platelets were normal 194,000. INR was 2.1 on admission. The patient is not on anticoagulation and it clifford to 2.64 probably secondary to extrahepatic obstruction. IMAGING STUDIES: Include a CT from 10/13/2019 again shows an interval change with increased extrahepatic obstruction of the common bile duct. The patient has no apparent masses seen in the liver. She does have intra and extrahepatic biliary dilatation down to the inferior pancreatic head mass ANALYSIS: Extrahepatic obstruction secondary to pancreatic mass in the head of the pancreas. PLAN: 1. Consider endoscopic retrograde cholangiopancreatography (ERCP) with papillotomy and stent placement. 2. The patient's international normalized ratio (INR) must be corrected to at least below 1.5. 3. Informed consent has been given to the patient.
[2019-10-16] MEDS: lisinopriL 10 MG TAB PO SCH (20:29)
[2019-10-16] MEDS: ROSUVASTATIN 10 MG TAB (CRESTOR) PO SCH (20:30)
[2019-10-16] MEDS: ACETAMINOPHEN TAB 650MG DOSE (2X325MG) PO PRN (20:33)
[2019-10-17] VITALS (7 sets, daily range): BP systolic 124–148; BP diastolic 60–79
[2019-10-17] MEDS: D5W/0.45% SODIUM CHLORIDE 1,000 ML IV SCH (05:34)
[2019-10-17] MEDS: LEVOTHYROXINE 75MCG TABLET (0.075MG) PO SCH (05:35)
[2019-10-17] MEDS: PANTOPRAZOLE 40MG TAB (PROTONIX) PO SCH ×2 (05:35→18:17)
[2019-10-17] MEDS: PIPERACILLIN/TAZOBACTAM SOD 3.375 GM in D5W MINI-BAG PLUS 50 ML IV SCH ×4 (05:35→22:13)
[2019-10-17 06:45] LABS: HEMATOCRIT 32.6 % (36.0-47.0); HEMOGLOBIN 10.9 g/dl (12.0-15.5); MEAN CORPUSCULAR HEMOGLOBIN 29.7 pg (27.0-33.0); MEAN CORPUSCULAR HGB CONC 33.4 g/dl (32.0-36.5); MEAN CORPUSCULAR VOLUME 88.8 fl (80.0-96.0); PLATELET COUNT, AUTOMATED 175 10^3/uL (150-450); RED BLOOD COUNT 3.67 10^6/uL (4.00-5.40); WHITE BLOOD COUNT 5.8 10^3/uL (4.0-10.0)
[2019-10-17 06:54] LABS: INR 1.32; PROTHROMBIN TIME 16.1 SECONDS (11.8-14.0)
[2019-10-17] MEDS: ACETAMINOPHEN TAB 650MG DOSE (2X325MG) PO PRN (07:11)
[2019-10-17 07:17] LABS: ALT/SGPT 175 U/L (12-78); BLOOD UREA NITROGEN 3 MG/DL (7-18); CALCIUM LEVEL 8.4 MG/DL (8.8-10.2); CARBON DIOXIDE LEVEL 27 MEQ/L (21-32); CHLORIDE LEVEL 109 MEQ/L (98-107); CREATININE FOR GFR 0.56 MG/DL (0.55-1.30); GLOMERULAR FILTRATION RATE > 60.0 (>39); GLUCOSE, FASTING 89 MG/DL (70-100); PHOSPHORUS LEVEL 2.6 MG/DL (2.5-4.9); POTASSIUM SERUM 3.9 MEQ/L (3.5-5.1); SODIUM LEVEL 143 MEQ/L (136-145)
[2019-10-17] MEDS: ESCITALOPRAM OXALATE 10 MG TAB (LEXAPRO) PO SCH (09:40)
[2019-10-17] MEDS: amLODIPine 10 MG TAB PO SCH (09:41)
[2019-10-17] MEDS: RIVAROXABAN 15 MG TAB (XARELTO) PO SCH ×2 (09:41→18:17)
--- NOTE | 2019-10-17 09:55 | IPNPDOC ---
Subjective Date Seen The patient was seen on 10/17/19. Subjective Chief Complaint/HPI Seen and examined at bedside, doing well and in good spirits. General: Reports: Normal Appetite; Denies: Chills, Night Sweats, Fatigue, Malaise Constitutional: Denies: Chills, Fever, Night Sweats Eyes: Denies: Pain, Vision change ENT: Denies: Head Aches, Ear Pain, Dysphagia Skin: Denies: Rash, Lesions, Breakdown Pulmonary: Denies: Dyspnea, Cough Cardiovascular: Denies: Chest Pain, Palpitations, Orthopnea, Paroxysmal Noc. Dyspnea, Lt Headedness Gastrointestinal: Denies: Nausea, Vomiting, Abdominal Pain, Diarrhea, Constipation Genitourinary: Denies: Dysuria, Frequency, Incontinence, Retention Hematologic: Denies: Bruising, Bleeding Excessively Musculoskeletal: Denies: Neck Pain, Back Pain, Joint Pain, Muscle Pain, Spasms Neurological: Denies: Weakness, Numbness, Change in speech, Confusion Psych: Reports: Mood Normal; Denies: Depression, Memory Issues Objective Physical Examination General Exam: Positive: Alert, Cooperative, No Acute Distress, Mild Distress, Moderate Distress, Severe Distress, Other Eye Exam: Positive: PERRLA, Conjunctiva & lids normal, EOMI, Sclera icteric, Ptosis, Other Eye Symptoms ENT Exam: Positive: Atraumatic, Mucous membr. moist/pink, Pharynx Normal, Tongue Midline, Pharyngeal Edema, Nares Patent, Tympanic Membranes Normal, Ext Auditory Canal Nml, Pinna Normal, Other ENT Neck Exam: Positive: Supple, JVD, thyromegaly, +2 carotid pulse wo bruit, Lymphadenopathy, Other Chest Exam: Positive: Clear to auscultation, Normal air movement Heart Exam: Positive: Rate Normal, Tachycardic, Bradycardic, Regular Rhythm, Irregular Rhythm, Normal S1, Normal S2, Gallops, Murmurs, Rubs, Other Telemetry: Positive: No significant arrhythmia Abdomen Exam: Positive: Normal bowel sounds, BS Hyperactive, BS Hypoactive, Tenderness, Hepatospenomegaly, Mass, Hernia, Other Female Exam: Positive: Nl Ext Genitalia; Negative: Lesions, Discharge, Odor, Tenderness Extremity Exam: Positive: Clubbing, Cyanosis, Edema, Tenderness, Swelling, Other; Negative: Normal pulses Skin Exam: Positive: Nl turgor and temperature, Rash, Breakdown, Lesion, Pruritus, Other skin issue Neuro Exam: Positive: Normal Gait, Normal Speech, Strength at 5/5 X4 ext, Normal Tone, Sensation Intact, Cranial Nerves 3-12 NL, Reflexes 2+, Other Psych Exam: Positive: Mental status NL, Mood NL, Anxiety, Memory Intact, Oriented x 3, Other Assessment /Plan Assessment 1. obstructive jaundice - hx pancreatic cancer. - GI Dr. Su following. - s/p ERCP with biliary sphincterotomy, stent placed in CBD. - multiple non-bleeding duodenal ulcers. - continue protonix, sucralfate. - oncology f/u, seen by palliative care, outpatient f/u. - advance diet. 2. supratheraputic INR - resolved- possibly 2/2 liver disfunction, possibly 2/2 Xarelto? - Patient was thought to be on Xarelto for single dose as an outpatient based on documentation, however, there is no evidence of receiving Xarelto on record. - Discussion with Dr. 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 - discussion with GI/onco regarding when to restart Xarelto. 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 - Case discussed with Dr. Doe who does not believe the pt needs any intervention at this time. - will discuss with GI/onco about when to restart anticoagulation. 4. DVT prophylaxis - TEDs/SCD's. Plan/VTE VTE Prophylaxis Ordered?: Yes Plan Advance Directives: Other Advance Directive (she will review 5 Wishes with her daughter.) [facility]/I&O Vital Signs Date Time Temp Pulse Resp B/P (MAP) Pulse Ox O2 Delivery O2 Flow Rate FiO2 10/17/19 06:00 97.6 58 18 132/60 (84) 97 Room Air 10/16/19 13:45 2 I&O- Last 24 Hours up to 6 AM 10/17/19 06:00 Intake Total 2240 ml Output Total 500 ml Balance 1740 ml Laboratory Data 24H LABS Laboratory Tests 2 10/17/19 06:23: Nucleated Red Blood Cells % (auto) 0.0, Prothrombin Time 16.1H, Prothromb Time International Ratio 1.32, Anion Gap 7L, Glomerular Filtration Rate > 60.0, Calcium Level 8.4L, Phosphorus Level 2.6, Total Bilirubin 7.0H, Aspartate Amino Transf (AST/SGOT) 93H, Alanine Aminotransferase (ALT/SGPT) 175H, Alkaline Phosphatase 670H, Total Protein 6.0L, Albumin 3.0L, Albumin/Globulin Ratio 1.00 CBC/BMP Laboratory Tests 10/17/19 06:23 Microbiology Microbiology 10/17/19 Stool Occult Blood (ARMIDA) - Final, Complete 10/13/19 Blood Culture - Preliminary, Resulted No Growth after 72 hours. All specime... 10/13/19 Blood Culture - Preliminary, Resulted No Growth after 72 hours. All specime... ADOLPH SEAY MD Oct 17, 2019 09:55
[2019-10-17] MEDS: lisinopriL 10 MG TAB PO SCH (20:07)
[2019-10-17] MEDS: ROSUVASTATIN 10 MG TAB (CRESTOR) PO SCH (20:07)
[2019-10-18 04:00] VITALS: BP 140/68
[2019-10-18] MEDS: PIPERACILLIN/TAZOBACTAM SOD 3.375 GM in D5W MINI-BAG PLUS 50 ML IV SCH (05:32)
[2019-10-18] MEDS: LEVOTHYROXINE 75MCG TABLET (0.075MG) PO SCH (05:32)
[2019-10-18] MEDS: PANTOPRAZOLE 40MG TAB (PROTONIX) PO SCH (05:32)
[2019-10-18 06:00] VITALS: BP 156/72
[2019-10-18 06:34] LABS: HEMATOCRIT 32.7 % (36.0-47.0); HEMOGLOBIN 10.7 g/dl (12.0-15.5); MEAN CORPUSCULAR HEMOGLOBIN 29.8 pg (27.0-33.0); MEAN CORPUSCULAR HGB CONC 32.7 g/dl (32.0-36.5); MEAN CORPUSCULAR VOLUME 91.1 fl (80.0-96.0); PLATELET COUNT, AUTOMATED 187 10^3/uL (150-450); RED BLOOD COUNT 3.59 10^6/uL (4.00-5.40); WHITE BLOOD COUNT 9.3 10^3/uL (4.0-10.0)
[2019-10-18 06:55] LABS: INR 1.76; PROTHROMBIN TIME 20.2 SECONDS (11.8-14.0)
[2019-10-18 07:05] LABS: ALBUMIN 2.9 GM/DL (3.2-5.2); ALT/SGPT 156 U/L (12-78); BILIRUBIN,TOTAL 4.8 MG/DL (0.2-1.0); BLOOD UREA NITROGEN 5 MG/DL (7-18); CALCIUM LEVEL 8.3 MG/DL (8.8-10.2); CARBON DIOXIDE LEVEL 27 MEQ/L (21-32); CHLORIDE LEVEL 109 MEQ/L (98-107); CREATININE FOR GFR 0.58 MG/DL (0.55-1.30); GLOMERULAR FILTRATION RATE > 60.0 (>39); GLUCOSE, FASTING 94 MG/DL (70-100); PHOSPHORUS LEVEL 2.5 MG/DL (2.5-4.9); POTASSIUM SERUM 3.2 MEQ/L (3.5-5.1); SODIUM LEVEL 143 MEQ/L (136-145); TOTAL PROTEIN 5.6 GM/DL (6.4-8.2)
[2019-10-18] MEDS: RIVAROXABAN 15 MG TAB (XARELTO) PO SCH (08:35)
[2019-10-18] MEDS: ESCITALOPRAM OXALATE 10 MG TAB (LEXAPRO) PO SCH (08:35)
[2019-10-18] MEDS: amLODIPine 10 MG TAB PO SCH (08:36)
--- NOTE | 2019-10-18 13:34 | DS.PDOC ---
Discharge Summary General Date of Admission Oct 13, 2019 at 15:16 Date of Discharge 10/18/19 Discharge Summary PROCEDURES PERFORMED DURING STAY: [ERCP]. ADMITTING DIAGNOSES: 1. obstructive jaundice DISCHARGE DIAGNOSES: 1. obstructive jaundice COMPLICATIONS/CHIEF COMPLAINT: Jaundice Pancreatic Mass. HISTORY OF PRESENT ILLNESS: Please refer to H&P for detailed HPI. HOSPITAL COURSE: Patient was admitted to the hospital and treated for the following conditions: 1. obstructive jaundice - hx pancreatic cancer. - seen by GI Dr. Su. - s/p ERCP with biliary sphincterotomy, stent placed in CBD, noted to have multiple non-bleeding duodenal ulcers. - started on protonix, sucralfate. - seen by palliative care, recommending outpatient f/u. - patient tolerated regular diet and is cleared for discharge home. 2. SMV Thrombus - Records received from [facility] which show hx of SMV thrombus. - patient presented with supratherapeutic INR, states she was only given one dose of Xarelto and was told she could "restart after finishing chemotherapy". - case discussed with Dr. Doe who does not believe the pt needs any intervention at this time. - patient to follow up with her oncologist Dr. Ashton regarding when to restart anticoagulation, voices understanding and agreeable to same. DISCHARGE MEDICATIONS: Please see below. ALLERGIES: Please see below. PHYSICAL EXAMINATION ON DISCHARGE: VITAL SIGNS: Please see below. GENERAL: awake, NAD HEENT: NCAT, anicteric sclera, PERRLA NECK: supple, no JVD, no masses CARDIOVASCULAR EXAMINATION: NS1S2, regular, no M/R/G RESPIRATORY EXAMINATION: CTA b/l, no wheezes/rales/rhonchi ABDOMINAL EXAMINATION: NT/ND, positive bowel sounds x 4 EXTREMITIES: no cyanosis,clubbing, edema SKIN: warm, no rashes NEUROLOGICAL EXAMINATION: AAO x 3, no focal motor/sensory deficits PSYCHIATRIC EXAMINATION: calm, cooperative, normal affect LABORATORY DATA: Please see below. IMAGING: CT A/P (10/13/19): Progressive biliary ductal dilation, both intrahepatic and extrahepatic associated with inferior pancreatic head mass. Progressive dilation of the pancreatic duct is also noted. The previously noted ascites has resolved. PROGNOSIS: good ACTIVITY: [As tolerated]. DIET: regular DISPOSITION: home DISCHARGE INSTRUCTIONS: 1. please follow up with PCP in 1 week. 2. please follow up with oncology Dr. Ashton. ITEMS TO FOLLOWUP ON ON OUTPATIENT: 1. none DISCHARGE CONDITION: [Stable]. TIME SPENT ON DISCHARGE: Greater than [30] minutes. Vital Signs/I&Os Vital Signs Date Time Temp Pulse Resp B/P (MAP) Pulse Ox O2 Delivery O2 Flow Rate FiO2 10/18/19 06:00 98.9 56 18 156/72 (100) 96 10/17/19 14:00 Room Air 10/16/19 13:45 2 I&O- Last 24 Hours up to 6 AM 10/18/19 06:00 Intake Total 840 ml Output Total 1650 ml Balance -810 ml Laboratory Data Labs 24H Laboratory Tests 2 10/18/19 05:58: Nucleated Red Blood Cells % (auto) 0.4H, Prothrombin Time 20.2H, Prothromb Time International Ratio 1.76, Anion Gap 7L, Glomerular Filtration Rate > 60.0, Calcium Level 8.3L, Phosphorus Level 2.5, Total Bilirubin 4.8H, Aspartate Amino Transf (AST/SGOT) 73H, Alanine Aminotransferase (ALT/SGPT) 156H, Alkaline Phosphatase 588H, Total Protein 5.6L, Albumin 2.9L, Albumin/Globulin Ratio 1.07 CBC/BMP Laboratory Tests 10/18/19 05:58 Microbiology Microbiology 10/17/19 Stool Occult Blood (ARMIDA) - Final, Complete 10/13/19 Blood Culture - Preliminary, Resulted No Growth after 72 hours. All specime... 10/13/19 Blood Culture - Preliminary, Resulted No Growth after 72 hours. All specime... Discharge Medications Scheduled Amlodipine Besylate (Amlodipine Besylate) 10 Mg Tablet, 10 MG PO DAILY, (Reported) Escitalopram Oxalate (Lexapro) 10 Mg Tablet, 10 MG PO DAILY, (Reported) Levothyroxine Sodium (Levothyroxine Sodium) 75 Mcg Tablet, 75 MCG PO DAILY, (Reported) Lipase/Protease/Amylase ([place] 36,000 Units Capsule) 1 Each Capsule., 2 CAP PO WM, (Reported) Lisinopril (Lisinopril) 30 Mg Tablet, 30 MG PO QHS, (Reported) Omeprazole (Omeprazole) 40 Mg Capsule., 40 MG PO BID Prochlorperazine Maleate (Prochlorperazine Maleate) 10 Mg Tablet, 1 TAB PO Q6H for nausea Take 10 mg po q 6 hours prn nausea not controlled by zofran Rosuvastatin Calcium (Crestor) 20 Mg Tablet, 20 MG PO QHS, (Reported) Sucralfate (Sucralfate) 1 Gm Tablet, 1 TAB PO BID Scheduled PRN Hydrocodone/Acetaminophen (Hydrocodone-Acetamin 10-325 mg) 1 Each Tablet, 1 TAB PO QID PRN for PAIN, (Reported) Lipase/Protease/Amylase (Creon Dr 36,000 Units Capsule) 1 Each Capsule.dr, 1 CAP PO DAILY PRN for WITH SNACKS, (Reported) Lorazepam (Ativan) 0.5 Mg Tablet, 0.5 MG PO DAILYPRN PRN for NAUSEA Take 0.5 mg po q 6 hours prn nausea uncontrolled by Zofran or Compazine Ondansetron (Ondansetron Odt) 4 Mg Tab.rapdis, 4 MG PO Q6H PRN for NAUSEA OR VOMITING, (Reported) Allergies Coded Allergies: No Known Allergies (Unverified , 08/29/19) ADOLPH SEAY MD Oct 18, 2019 13:34
[2019-10-18] MEDS ORDERED: PANT40TA3 PO (13:39)
[2019-10-18] MEDS ORDERED: OMEP40CA97 PO (13:42)
[2019-10-18] MEDS ORDERED: SUCR1TA PO (13:44)
[2019-10-18 14:00] VITALS: BP 133/65
[2019-10-21] MEDS ORDERED: PROC5TA PO (08:46)
[2019-10-21] MEDS ORDERED: PROC10TA4 PO (14:27)
== END 2019-10-18 15:05 | disposition home or self-care (01) | DRG 444 ==
LOC: M ED 12:03 → M ED INP 15:16 → M PCU 15:56 → M MSPAV 10-15 02:05
PROVIDERS: ADMIT Internal Medicine; ATTEND Internal Medicine
PROC: 0F798ZZ Dilation of Common Bile Duct, Via Natural or Artificial Opening Endoscopic (ICD-10-PCS; principal; 2019-10-16 16:00)
DX: K83.1 Obstruction of bile duct (principal); D61.810 Antineoplastic chemotherapy induced pancytopenia; C25.9 Malignant neoplasm of pancreas, unspecified; R17 Unspecified jaundice; I82.890 Acute embolism and thrombosis of other specified veins; Z92.21 Personal history of antineoplastic chemotherapy; K59.09 Other constipation; K21.9 Gastro-esophageal reflux disease without esophagitis; Z79.82 Long term (current) use of aspirin; Z79.899 Other long term (current) drug therapy; Z88.8 Allergy status to other drugs, medicaments and biological substances; E03.9 Hypothyroidism, unspecified; I10 Essential (primary) hypertension; I25.10 Atherosclerotic heart disease of native coronary artery without angina pectoris; I25.2 Old myocardial infarction; Z87.891 Personal history of nicotine dependence; F41.9 Anxiety disorder, unspecified; E78.5 Hyperlipidemia, unspecified; Z90.79 Acquired absence of other genital organ(s); T45.1X5A Adverse effect of antineoplastic and immunosuppressive drugs, initial encounter; E83.39 Other disorders of phosphorus metabolism

== ENCOUNTER 2019-11-01 12:19 | Emergency (ER) | payer MEDICARE, OTHER ==
[~2019-11-01] VITALS: Ht 165.1 cm; Wt 67.9 kg
[~2019-11-01 12:19] MED LIST changes: +CREO3600 PO; +LISI-672 PO; +OMEP40CA97 PO; +PANT40TA3 PO; +PROC5TA PO; +SUCR1TA PO; +XARE15TA PO
[2019-11-01] MEDS ORDERED: ONDANSETRON 4MG/2ML VIAL (J2405) IV ONE (12:45)
[2019-11-01] MEDS ORDERED: PANTOPRAZOLE 40MG INJ (PROTONIX) (C9113) IV ONE (12:45)
[2019-11-01] MEDS ORDERED: NS 1,000 ML IV ONE (12:45)
[2019-11-01 12:51] LABS: HEMATOCRIT 35.2 % (36.0-47.0); MEAN CORPUSCULAR HEMOGLOBIN 30.5 pg (27.0-33.0); MEAN CORPUSCULAR HGB CONC 34.1 g/dl (32.0-36.5); MEAN CORPUSCULAR VOLUME 89.6 fl (80.0-96.0); PLATELET COUNT, AUTOMATED 491 10^3/uL (150-450); RED BLOOD COUNT 3.93 10^6/uL (4.00-5.40); WHITE BLOOD COUNT 16.9 10^3/uL (4.0-10.0)
[2019-11-01 13:01] LABS: INR 1.76; PROTHROMBIN TIME 20.3 SECONDS (11.8-14.0)
[2019-11-01 13:03] LABS: ATYPICAL LYMPH 1 % (0-5); LYMPHOCYTES 33 % (16-44); MONOCYTES 1 % (0-5); NEUTROPHILS 54 % (28-66)
[2019-11-01 13:04] LABS: PLATELET ESTIMATE INCREASED (NORMAL)
[2019-11-01 13:14] LABS: BILIRUBIN,DIRECT 1.4 MG/DL (0.0-0.2); BILIRUBIN,TOTAL 1.5 MG/DL (0.2-1.0); CALCIUM LEVEL 9.3 MG/DL (8.8-10.2); CREATININE FOR GFR 1.33 MG/DL (0.55-1.30); POTASSIUM SERUM 3.5 MEQ/L (3.5-5.1); TOTAL PROTEIN 6.9 GM/DL (6.4-8.2)
[2019-11-01] MEDS ORDERED: MACR100C43 PO (14:18)
[2019-11-01 14:27] VITALS: BP 106/63
[2019-11-03] MEDS ORDERED: KEFL500C17 PO (09:24)
[2019-11-04] MEDS ORDERED: LIDO2.5C15 TOP (13:40)
== END 2019-11-01 14:29 | disposition home or self-care (01) ==
LOC: M ED 12:19
DX: R19.7 Diarrhea, unspecified (principal); R11.2 Nausea with vomiting, unspecified; N39.0 Urinary tract infection, site not specified; C25.9 Malignant neoplasm of pancreas, unspecified; Z79.899 Other long term (current) drug therapy; Z87.891 Personal history of nicotine dependence
CPT/HCPCS: 80047; 80048; 80076; 81001; 82150; 83690; 85025; 85610; 85730; 87088; 87186; 93041; 96361; 96374; 96375; 99284; C9113; J2405

== ENCOUNTER → 2019-12-03 | Outpatient (CLI) | payer MEDICARE, OTHER ==
[~2019-12-03] MED LIST changes: +FURO20TA2 PO; +KEFL500C17 PO; +LIDO2.5C15 TOP; +LOMO2.5T PO; +LOPE-25 PO; +LORA0.5T5 PO; +MACR100C43 PO; +OMEP-221 PO; +PANT-23 PO; +POTA1TAB14 PO; +SUCR1TAB56 PO
[2019-12-03 16:23] LABS: BASO # 0.1 10^3/uL (0.0-0.2); BASO % 1.1 % (0.0-1.0); EOS % 0.3 % (0.0-3.0); HEMATOCRIT 28.4 % (36.0-47.0); HEMOGLOBIN 9.2 g/dl (12.0-15.5); LYMPH # 1.9 10^3/uL (1.5-5.0); LYMPH % 29.5 % (24.0-44.0); MEAN CORPUSCULAR HEMOGLOBIN 32.4 pg (27.0-33.0); MEAN CORPUSCULAR HGB CONC 32.4 g/dl (32.0-36.5); MONO # 0.6 10^3/uL (0.0-0.8); MONO % 10.2 % (0.0-5.0); NEUTROPHILS # 3.7 10^3/uL (1.5-8.5); NEUTROPHILS % 58.6 % (36.0-66.0); PLATELET COUNT, AUTOMATED 221 10^3/uL (150-450); RED BLOOD COUNT 2.84 10^6/uL (4.00-5.40); WHITE BLOOD COUNT 6.3 10^3/uL (4.0-10.0)
[2019-12-03 16:36] LABS: INR 1.25; PROTHROMBIN TIME 15.4 SECONDS (11.8-14.0)
[2019-12-03 16:37] LABS: PARTIAL THROMBOPLASTIN TIME 28.4 SECONDS (25.0-38.4)
--- NOTE | 2019-12-03 17:13 | REP ---
Clinical: Lower extremity pain and swelling . Technique: Cervantes scale and color Doppler evaluation of the bilateral lower extremities using linear high frequency transducer. Findings: Ultrasound examination of the right and left lower extremity deep venous structures from the common femoral vein to the popliteal vein demonstrates normal compressibility flow and wave patterns in response to respiration and augmentation. There is no evidence for deep venous thrombosis. Impression: No evidence for deep venous thrombosis bilaterally . Electronically Signed by Gregor Cage MD 12/03/2019 05:05 P
[2019-12-03 17:31] LABS: ALBUMIN 2.5 GM/DL (3.2-5.2); ALT/SGPT 55 U/L (12-78); BILIRUBIN,DIRECT 0.3 MG/DL (0.0-0.2); BILIRUBIN,TOTAL 0.4 MG/DL (0.2-1.0); BLOOD UREA NITROGEN 9 MG/DL (7-18); CALCIUM LEVEL 7.5 MG/DL (8.8-10.2); CARBON DIOXIDE LEVEL 29 MEQ/L (21-32); CHLORIDE LEVEL 110 MEQ/L (98-107); CREATININE FOR GFR 0.37 MG/DL (0.55-1.30); GLOMERULAR FILTRATION RATE > 60.0 (>39); GLUCOSE, FASTING 91 MG/DL (70-100); POTASSIUM SERUM 2.8 MEQ/L (3.5-5.1); SODIUM LEVEL 146 MEQ/L (136-145); TOTAL PROTEIN 5.2 GM/DL (6.4-8.2)
== END ==
LOC: M RAD 15:33
PROVIDERS: ATTEND Physician Assistant
DX: R60.0 Localized edema (principal)

== ENCOUNTER → 2020-02-26 | Outpatient (CLI) | payer MEDICARE, OTHER ==
[~2020-02-26] MED LIST changes: -AMLO10TA5 PO; +AMLO1TAB25 PO; +ASPI-1 PO; -ASPI81TA85 PO; +ASPI81TA86 PO; +FUTU-110 XX; -LISI-672 PO; +LISI30TA4 PO; +LORA1TAB4 PO; +PANT40TA29 PO; -PANT40TA3 PO; +POTA10CA32 PO; -PROC5TA PO; +PROC5TAB57 PO; +SIME80TA10 PO; +SPIR-10 PO
[2020-02-26 13:59] LABS: HEMATOCRIT 29.2 % (36.0-47.0); HEMOGLOBIN 9.5 g/dl (12.0-15.5); MEAN CORPUSCULAR HEMOGLOBIN 34.1 pg (27.0-33.0); MEAN CORPUSCULAR HGB CONC 32.5 g/dl (32.0-36.5); MEAN CORPUSCULAR VOLUME 104.7 fl (80.0-96.0); RED BLOOD COUNT 2.79 10^6/uL (4.00-5.40); WHITE BLOOD COUNT 2.6 10^3/uL (4.0-10.0)
[2020-02-26 14:02] LABS: PLATELET COUNT, AUTOMATED 39 10^3/uL (150-450)
[2020-02-26 14:32] LABS: ALBUMIN 3.5 GM/DL (3.2-5.2); ALT/SGPT 46 U/L (12-78); BILIRUBIN,TOTAL 0.6 MG/DL (0.2-1.0); BLOOD UREA NITROGEN 12 MG/DL (7-18); CALCIUM LEVEL 8.6 MG/DL (8.8-10.2); CARBON DIOXIDE LEVEL 25 MEQ/L (21-32); CHLORIDE LEVEL 110 MEQ/L (98-107); CREATININE FOR GFR 0.83 MG/DL (0.55-1.30); GLOMERULAR FILTRATION RATE > 60.0 (>39); GLUCOSE, FASTING 102 MG/DL (70-100); POTASSIUM SERUM 4.5 MEQ/L (3.5-5.1); SODIUM LEVEL 141 MEQ/L (136-145); TOTAL PROTEIN 6.2 GM/DL (6.4-8.2)
[2020-02-26 15:00] LABS: ATYPICAL LYMPH 5 % (0-5); BASOPHILS 2 % (0-1); EOSINOPHILS 1 % (0-3); LYMPHOCYTES 34 % (16-44); MONOCYTES 5 % (0-5); NEUTROPHILS 45 % (28-66)
[2020-02-26 15:01] LABS: PLATELET ESTIMATE DECREASED (NORMAL); TOXIC GRANULATION 2+
[2020-02-26 15:02] LABS: ANISOCYTOSIS 1+; HYPOCHROMASIA 1+; POIKILOCYTOSIS 1+
== END ==
LOC: M LAB 13:11
PROVIDERS: ATTEND Radiology Radiation Oncology
DX: C25.9 Malignant neoplasm of pancreas, unspecified (principal)

== ENCOUNTER → 2020-03-24 | Outpatient (CLI) | payer MEDICARE, OTHER ==
[~2020-03-24] MED LIST changes: +GASTROGRAFIN SOLUTION 30ML (Q9963) ONE; +ISOVUE-370 76% 100ML VIAL ONE
[2020-04-27 10:48] LABS: INR 1.2; PROTHROMBIN TIME 15.5 SECONDS (11.8-14.0)
[2020-04-27 13:12] LABS: BASO % 0.5 % (0.0-1.0); EOS % 0.5 % (0.0-3.0); HEMATOCRIT 32.4 % (36.0-47.0); HEMOGLOBIN 10.6 g/dl (12.0-15.5); LYMPH % 26.5 % (24.0-44.0); MEAN CORPUSCULAR HEMOGLOBIN 36.2 pg (27.0-33.0); MEAN CORPUSCULAR HGB CONC 32.7 g/dl (32.0-36.5); MEAN CORPUSCULAR VOLUME 110.6 fl (80.0-96.0); MONO # 0.3 10^3/uL (0.0-0.8); MONO % 7.5 % (0.0-5.0); NEUTROPHILS # 2.5 10^3/uL (1.5-8.5); PLATELET COUNT, AUTOMATED 173 10^3/uL (150-450); RED BLOOD COUNT 2.93 10^6/uL (4.00-5.40); WHITE BLOOD COUNT 3.9 10^3/uL (4.0-10.0)
[2020-06-18 09:11] LABS: ALT/SGPT 60 U/L (12-78); BILIRUBIN,TOTAL 1.3 MG/DL (0.2-1.0); BLOOD UREA NITROGEN 9 MG/DL (7-18); CALCIUM LEVEL 8.4 MG/DL (8.8-10.2); CARBON DIOXIDE LEVEL 30 MEQ/L (21-32); CHLORIDE LEVEL 113 MEQ/L (98-107); CREATININE FOR GFR 0.43 MG/DL (0.55-1.30); GLOMERULAR FILTRATION RATE > 60.0 (>39); GLUCOSE, FASTING 84 MG/DL (70-100); POTASSIUM SERUM 3.5 MEQ/L (3.5-5.1); PREALBUMIN 8.9 MG/DL (20.0-40.0); SODIUM LEVEL 145 MEQ/L (136-145); TOTAL PROTEIN 5.8 GM/DL (6.4-8.2)
== END ==
LOC: M LAB 08:43 → M RAD 08:43
PROVIDERS: ATTEND Nurse Practitioner
DX: C25.9 Malignant neoplasm of pancreas, unspecified (principal); Z79.899 Other long term (current) drug therapy
CPT/HCPCS: 36415; 71260; 74160; 80053; 84134; 85025; 85610; 85730; 86301; Q9963; Q9967

== ENCOUNTER → 2020-08-25 | Outpatient (REF) | payer MEDICARE, OTHER ==
[~2020-08-25] MED LIST changes: -GASTROGRAFIN SOLUTION 30ML (Q9963) ONE; -ISOVUE-370 76% 100ML VIAL ONE; -LOPE-25 PO; +LOPE-26 PO
[2020-08-25 13:22] LABS: HEMATOCRIT 32.6 % (36.0-47.0); HEMOGLOBIN 10.2 g/dl (12.0-15.5); MEAN CORPUSCULAR HEMOGLOBIN 29.4 pg (27.0-33.0); MEAN CORPUSCULAR HGB CONC 31.3 g/dl (32.0-36.5); MEAN CORPUSCULAR VOLUME 93.9 fl (80.0-96.0); RED BLOOD COUNT 3.47 10^6/uL (4.00-5.40); WHITE BLOOD COUNT 2.2 10^3/uL (4.0-10.0)
[2020-08-25 13:50] LABS: ALBUMIN 2.4 GM/DL (3.2-5.2); ALT/SGPT 15 U/L (12-78); BILIRUBIN,TOTAL 0.4 MG/DL (0.2-1.0); BLOOD UREA NITROGEN 9 MG/DL (7-18); CALCIUM LEVEL 8.1 MG/DL (8.8-10.2); CARBON DIOXIDE LEVEL 29 MEQ/L (21-32); CHLORIDE LEVEL 106 MEQ/L (98-107); CREATININE FOR GFR 0.52 MG/DL (0.55-1.30); GLOMERULAR FILTRATION RATE > 60.0 (>39); GLUCOSE, FASTING 96 MG/DL (70-100); POTASSIUM SERUM 4.1 MEQ/L (3.5-5.1); SODIUM LEVEL 140 MEQ/L (136-145); TOTAL PROTEIN 5.6 GM/DL (6.4-8.2)
[2020-08-25 14:25] LABS: CA19-9 TUMOR MARKER,CARBOHYDRA 128.9 U/ML (<35.0)
[2020-08-25 14:26] LABS: PLATELET COUNT, AUTOMATED 51 10^3/uL (150-450)
[2020-08-25 14:30] LABS: ATYPICAL LYMPH 1 % (0-5); EOSINOPHILS 3 % (0-3); LYMPHOCYTES 61 % (16-44); MONOCYTES 2 % (0-5); NEUTROPHILS 33 % (28-66); PLATELET ESTIMATE MARKED DECREASE (NORMAL)
== END ==
LOC: M LABDRWAD 12:39
PROVIDERS: ATTEND Family Medicine
DX: C25.9 Malignant neoplasm of pancreas, unspecified (principal)

== ENCOUNTER → 2020-08-29 | Outpatient (CLI) | payer MEDICARE, OTHER ==
[~2020-08-29] MED LIST changes: +ELIQ5TAB PO; +GASTROGRAFIN SOLUTION 30ML (Q9963) As Ordered ONE; +HYDR-3719 PO; +ISOVUE-370 76% 100ML VIAL As Ordered ONE; +LEVO750T13 PO; -LISI-538 PO; +LISI20TA33 PO; +POTA20TA6 PO; +SYNT88TA2 PO
--- NOTE | 2020-08-29 16:50 | REP ---
INDICATION: BREAST CA. COMPARISON: Comparison CT study of the chest March 24, 2020.. TECHNIQUE: Helical scanning is acquired following the intravenous injection of 100 mL of Isovue 370. 3 mm axial images are re-formatted. Coronal and sagittal MPR images are provided. FINDINGS: There are platelike atelectatic changes just above the right hemidiaphragm in the right middle lobe more prominent than on the prior study. There is posterior new platelike atelectasis in the right lower lobe today. No infiltrate is seen. The previously noted 3 mm pulmonary nodule in the right middle lobe is again seen unchanged. no new pulmonary nodule is appreciated. There is a very small quantity of left pleural fluid which is a new finding. There is a right-sided [id number] catheter. No mediastinal or hilar mass or adenopathy is observed. Coronary artery stent material is visible. There is moderate upper abdominal ascites and fatty liver change. No bony sclerotic or destructive lytic lesions seen. IMPRESSION: There are platelike atelectatic changes in the right middle lobe and right lower lobe today more prominent than on prior study, new in the right lower lobe. A small quantity of left pleural fluid is noted today which is a new finding as well. Stable 3 mm right middle lobe nodule. Otherwise no acute disease. Ascites and hepatic steatosis again noted. <Electronically signed by Melvin Rivera > 08/29/20 [id number]
--- NOTE | 2020-08-29 17:06 | REP ---
INDICATION: BREAST CA. Pancreatic adenocarcinoma. COMPARISON: Comparison is CT abdomen March 24, 2020. Comparison abdomen pelvis CT November 16, 2019.. TECHNIQUE: Contrast dose: 100 ML of Isovue [address] technique: Helical scanning is acquired and overlapping 1.5 mm and contiguous 3 mm axial images are reformatted. In addition, maximum intensity projection and multiplanar re-formation images are generated in sagittal and coronal imaging projections. FINDINGS: Preliminary digital director life sales radiograph demonstrates gaseous distention in the small bowel loops in the central abdomen surrounded by fluid which corresponds to ascites. Axial CT images confirm the presence of a large amount of diffuse abdominal and pelvic ascites although fluid does not extend into the cul-de-sac and deep pelvic reflections suggesting that it may be at least somewhat loculated. It is increased in amount when compared with the March 24, 2020 study. Is decreased in opacity since that prior study relative to the liver and spleen. Diffuse fatty infiltration of the liver persists. No focal liver mass lesion is appreciated. The previous study showed a common bile duct stent which is no longer apparent. No biliary ductal dilation is appreciated. Spleen is normal in size homogeneous in texture. The gallbladder and the pancreas a been removed consistent with Whipple procedure with choledochal jejunostomy. There is no visible regional adenopathy. There is some mural thickening in the right colon which may reflect enterocolitis. No small or large bowel obstructive lesion is appreciated. Kidneys enhance symmetrically and are morphologically intact. Bone window settings show no bony destructive lesion. The uterus is surgically absent as well. A left inguinal hernia is seen associated with the ascites. This transmits ascitic fluid but no bowel loops. IMPRESSION: Status post Whipple procedure. A large amount of of loculated ascites, increased from the prior study. Left inguinal hernia is developing trans Jones some ascitic fluid. Fatty infiltration of the liver is again noted. Mild mural thickening of the right colon question enterocolitis. <Electronically signed by Melvin Rivera > 08/29/20 [id number]
== END ==
LOC: M RAD 11:29
PROVIDERS: ATTEND Nurse Practitioner
DX: D48.7 Neoplasm of uncertain behavior of other specified sites (principal); R18.8 Other ascites; K76.0 Fatty (change of) liver, not elsewhere classified; J98.11 Atelectasis; R91.1 Solitary pulmonary nodule; K40.90 Unilateral inguinal hernia, without obstruction or gangrene, not specified as recurrent; Z90.49 Acquired absence of other specified parts of digestive tract; C25.9 Malignant neoplasm of pancreas, unspecified
CPT/HCPCS: 71260; 74178; Q9963; Q9967

== ENCOUNTER 2020-09-09 18:56 | Inpatient (IN) | payer MEDICARE, OTHER ==
[~2020-09-09] VITALS: Ht 165.1 cm; Wt 55.1 kg
[~2020-09-09 18:56] MED LIST changes: -ELIQ5TAB PO; -GASTROGRAFIN SOLUTION 30ML (Q9963) As Ordered ONE; -HYDR-3719 PO; -ISOVUE-370 76% 100ML VIAL As Ordered ONE; -LEVO750T13 PO; +LISI-538 PO; -LISI20TA33 PO; -POTA20TA6 PO; -SYNT88TA2 PO
[2020-09-09] MEDS ORDERED: PANTOPRAZOLE 40MG VIAL (C9113 PER 1) IV ONE (19:45)
[2020-09-09] MEDS ORDERED: ONDANSETRON 4MG/2ML VIAL IV ONE (19:45)
[2020-09-09] MEDS ORDERED: ACETAMINOPHEN TAB 650MG DOSE (2X325MG) PO ONE (19:45)
[2020-09-09] MEDS ORDERED: NS 1,000 ML IV ONE (19:45)
[2020-09-09] MEDS ORDERED: HYDR-3719 PO (20:37)
[2020-09-09] MEDS ORDERED: SYNT88TA2 PO (20:37)
--- NOTE | 2020-09-09 20:56 | REPVR ---
PROCEDURE INFORMATION: Exam: XR Chest, 1 View Exam date and time: 09/09/2020 8:16 PM Age: 70 years old Clinical indication: Fever; Additional info: Temp TECHNIQUE: Imaging protocol: XR of the chest Views: 1 view. COMPARISON: CT Chest with contrast 08/29/2020 1:19 PM FINDINGS: Tubes, catheters and devices: A right-sided Port-A-Cath is identified, with the catheter tip within the right side of the heart. Lungs: Prominence of the pulmonary vascular markings. Mild opacification at the left lung base, suggestive of of atelectatic change or infiltrate. Pleural spaces: Blunting of the costophrenic angles, left side greater than right, and minimal effusions are considered. Heart/Mediastinum: No cardiomegaly. Vasculature: There is atherosclerotic calcification of the aortic arch. Bones/joints: Osteopenia. IMPRESSION: 1. Prominence of the pulmonary vascular markings. 2. Mild opacification at the left lung base, suggestive of of atelectatic change or infiltrate. Clinical correlation and follow-up radiographs are recommended. 3. Blunting of the costophrenic angles, left side greater than right, and minimal effusions are considered. 4. A right-sided Port-A-Cath is identified, with the catheter tip within the right side of the heart. Electronically signed by: Jeremi Duong On 09/09/2020 20:56:36 PM
[2020-09-09 21:15] LABS: HEMATOCRIT 27.6 % (36.0-47.0); HEMOGLOBIN 9.1 g/dl (12.0-15.5); LYMPH # 0.3 10^3/uL (1.5-5.0); LYMPH % 62.7 % (24.0-44.0); MEAN CORPUSCULAR HEMOGLOBIN 29.4 pg (27.0-33.0); MEAN CORPUSCULAR VOLUME 89.3 fl (80.0-96.0); MONO # 0.1 10^3/uL (0.0-0.8); MONO % 13.7 % (0.0-5.0); NEUTROPHILS % 23.6 % (36.0-66.0); RED BLOOD COUNT 3.09 10^6/uL (4.00-5.40)
[2020-09-09 21:30] LABS: NEUTROPHILS # 0.1 10^3/uL (1.5-8.5); PLATELET COUNT, AUTOMATED 35 10^3/uL (150-450); WHITE BLOOD COUNT 0.5 10^3/uL (4.0-10.0)
[2020-09-09 21:32] LABS: ALBUMIN 2.2 GM/DL (3.2-5.2); ALT/SGPT 17 U/L (12-78); BILIRUBIN,DIRECT 0.3 MG/DL (0.0-0.2); BILIRUBIN,TOTAL 0.6 MG/DL (0.2-1.0); BLOOD UREA NITROGEN 16 MG/DL (7-18); CALCIUM LEVEL 7.9 MG/DL (8.8-10.2); CARBON DIOXIDE LEVEL 25 MEQ/L (21-32); CHLORIDE LEVEL 101 MEQ/L (98-107); CREATININE FOR GFR 0.53 MG/DL (0.55-1.30); GLOMERULAR FILTRATION RATE > 60.0 (>39); GLUCOSE, FASTING 113 MG/DL (70-100); LIPASE 14 U/L (73-393); POTASSIUM SERUM 2.8 MEQ/L (3.5-5.1); SODIUM LEVEL 138 MEQ/L (136-145); TOTAL PROTEIN 5.2 GM/DL (6.4-8.2)
[2020-09-09] MEDS ORDERED: ISOVUE-370 76% 100ML VIAL As Ordered ONE (21:37)
[2020-09-09] MEDS ORDERED: POTASSIUM CHLORIDE 10 MEQ SR TABLET PO ONE (21:45)
[2020-09-09] MEDS ORDERED: KCL 40MEQ in NS 1000ML 1,000 ML IV SCH (21:45)
--- OUTSIDE RECORDS SUMMARY | 2020-09-09 23:05 | CCD | Continuity of Care Document ---
Author Author Frances CHENG Organization Unknown Address [email or web address] [place] [address] Phone [phone] Care Team Providers Care Director Of Philanthropy Name Role Phone Brandi Cheng D.O. AUTM [facility] Physical Therapy [facility] AUTM Problems Active Problems Provider Date Elevated blood-pressure reading without diagnosis of h ypertension Brandi Lopez D.O. Onset: 07/07/2014 Obesity Brandi Cheng D.O. Onset: 2013 Essential hypertension Brandi Cheng D.O. Onset: 09/2014 Mixed hyperlipidemia Brandi Cheng D.O. Onset: 08/13 Cramp in lower leg associated with rest Brandi Cheng D.O. Onset: 08/13/2014 Essential hypertension Brandi Cheng D.O. Onset: 04/2015 Edema Brandi Cheng D.O. Onset: 2015 Body mass index 30+ - obesity Brandi Cheng D.O. Ons et: 06/21/2016 Pain in limb Brandi Cheng D.O. Onset: 2015 Corns and callus Brandi Cheng D.O. Onset: 2015 Body mass index 30+ - obesity Brandi Cheng D.O. Ons et: 01/23/2018 Hypothyroidism Brandi Cheng D.O. Onset: 2017 Prediabetes Brandi Cheng D.O. Onset: 2017 Primary adenocarcinoma of pancreas Onset : Generalized anxiety disorder NIXON Mcduffie Onset: 06/14 Gastroesophageal reflux disease NIXON Mcduffie Onset: 09/10/2019 Social History Type Date Description Comments Sex Unknown ETOH Use Denies alcohol use Tobacco Use Start: Unknown End: Unknown Patient is a former smoker Recreational Drug Use Denies Drug Use Smoking Status Reviewed: 01/12/19 Patient is a former smoker Exercise Type/Frequency Does not exercise Sun Exposure Does not use sunscreen Seat Belt/Car Seat Always uses seat belt Allergies, Adverse Reactions, Alerts Description No Known Drug Allergies Medications Active Medications SIG Qnty Indications Ordering Provide r Date Levothyroxine Sodium 88mcg Tablets take one tablet by mouth every morning 90tabs E03.9 Alex PuenteOLaura 07/11/2020 Potassium Chloride ER 20Meq Tablet s ER 2 by mouth every day for 3 days 14tabs Brandi Bernardo er, D.OLaura 12/04/2019 Hydrocodone-Acetaminophen 10-325mg Tablets take one tablet by mouth every 6 hours as needed for p ain istop: [id number] 120tabs D49.0 Alex WrightOLaura 08/31/2019 [facility], check blood pressure regularly 1units I10 Brandi Lopez D.O. 07/14/2019 Voltaren 1% Gel apply 3 grams to painful area on both feet twice daily as needed 100gm M79.672 Alex WrightOLaura 06/21/2016 M79.671 Gas Relief 180mg Capsules prn Unknown Creon [id number] Caps DR Small Take 2 Capsules 3 Times A Day With Meals And 1 With Snacks With First Bite Of Food Unknown Lidocaine-Prilocaine 2.5-2.5% Cream Unknown Loperamide HCL 2mg Capsules one capsule daily as needed for diarrhea Unknown Omeprazole 40mg Capsules DR 1 by mouth twice a day 180caps Alex WrightOLaura Prochlorperazine Maleate 10mg Tabl ets take one tablet by mouth every 6 hours as needed Unkn own Sucralfate 1gm Tablets take one tablet every twelve hours by mouth 180tabs Alex WrightOLaura Lorazepam 0.5mg Tablets take 1 tab by mouth twice a daily as needed for nausea istop: [id number] 60tabs Kirsten Wright.O. History Medications Promethazine HCL 12.5mg Tablets take one tablet by mouth every 6 hours 60tabs Brandi justice, D.O. 07/11/2020 - 07/11/2020 Medications Administered in Office Medication SIG Qnty Indications Ordering Provider Date Immunization Administration Single Or Co mbination Injection Kirsten Wright 05/20/2015 Immunizations CPT Code Status Date Vaccine Lot # [id number] Given 05/29/2018 Influenza Virus Vaccine, Quadrivalent, Split, Preservative Free [id number] Given 05/29/2018 Pneumococcal Con jugate Vaccine 13 Valent For Intramuscular Use [id number] Given 05/20/2015 Zoster Shingles Vaccine For Subcutaneous Injection Vital Signs Date Vital Result Comment 07/11/2020 2:51pm BP Systolic 124 mmHg BP Diastolic 60 mmHg Height 65 inches 5'5" Weight 137.38 lb BMI (Body Mass Index) 22.9 kg/m2 Heart Rate 76 /min Respiratory Rate 18 /min Body Temperature 97.6 F O2 % BldC Oximetry 99 % [place] Body Weight 125 lb 12/03/2019 2:23pm BP Systolic 130 mmHg BP Diastolic 70 mmHg Height 65 inches 5'5" Weight 163.00 lb BMI (Body Mass Index) 27.1 kg/m2 Heart Rate 84 /min Respiratory Rate 18 /min Body Temperature 97.9 F O2 % BldC Oximetry 99 % [place] Body Weight 125 lb Results Test Acquired Date Facility Test Result H/L Range Note CBC With Differential 08/31/2020 [facility] Outpatient Gail nash (Registration) [address] [place] [address] [phone] White Blood Count 15.7 10 High 4.0-10.0 Red Blood Count 3.12 10 Low 4.00-5.40 Hemoglobin 9.2 g/dL Low 12.0-15.5 Hematocrit 29.1 % Low 36.0-47.0 Mean Corpuscular Volume 93.3 fl Normal 80.0-96.0 Mean Corpuscular Hemoglobin 29.5 pg Normal 27.0-33.0 Mean Corpuscular HGB Conc 31.6 g/dL Low 32.0-36.5 Red Cell Distribution Width 16.9 % High 11.5-14.5 Platelet Count, Automated 121 10 Low 150-450 Neutrophils % 73.1 % High 36.0-66.0 Lymph % 10.1 % Low 24.0-44.0 [place] % 7.0 % High 0.0-5.0 Eos % 0.4 % Normal 0.0-3.0 Baso % 0.6 % Normal 0.0-1.0 Immature Granulocyte % 8.8 % High 0-3.0 Nucleated Red Blood Cell % 0.1 % High 0-0 Neutrophils # 11.5 10 High 1.5-8.5 Lymph # 1.6 10 Normal 1.5-5.0 [place] # 1.1 10 High 0.0-0.8 Eos # 0.1 10 Normal 0.0-0.5 Baso # 0.1 10 Normal 0.0-0.2 Comprehensive Metabolic Profil 08/31/2020 [facility] Outpa tient Testing (Registration) [address] [place] [address] [phone] Glucose, Fasting 124 mg/dL High 70-100 Blood Urea Nitrogen 8 mg/dL Normal 7-18 Creatinine For GFR 0.67 mg/dL Normal 0.55-1.30 Glomerular Filtration Rate > 60.0 Normal >39 1 Sodium Level 142 mEq/L Normal 136-145 Potassium Serum 3.1 mEq/L Low 3.5-5.1 Chloride Level 108 mEq/L High 98-107 Carbon Dioxide Level 26 mEq/L Normal 21-32 Anion Gap 8 mEq/L Normal 8-16 Calcium Level 7.7 mg/dL Low 8.8-10.2 Ast/Sgot 15 U/L Normal 7-37 Alt/SGPT 13 U/L Normal 12-78 Alkaline Phosphatase 133 U/L High 45-117 Bilirubin,Total 0.2 mg/dL Normal 0.2-1.0 Total Protein 5.2 GM/DL Low 6.4-8.2 Albumin 2.2 GM/DL Low 3.2-5.2 Albumin/Globulin Ratio 0.7 Low 1.2-2.2 Laboratory test finding 08/31/2020 [facility] Outpatient T esting (Registration) [address] [place] [address] [phone] Ca19-9 Tumor Marker,Carbohydra 226.4 U/ML High < 35.0 2 Carcinoembryonic Antigen 5.0 NG/ML High <2.5 3 CBC With Differential 08/16/2020 [facility] Outpatient Gail ting (Registration) [address] [place] [address] [phone] White Blood Count 5.5 10 Normal 4.0-10.0 Red Blood Count 3.43 10 Low 4.00-5.40 Hemoglobin 10.2 g/dL Low 12.0-15.5 Hematocrit 32.5 % Low 36.0-47.0 Mean Corpuscular Volume 94.8 fl Normal 80.0-96.0 Mean Corpuscular Hemoglobin 29.7 pg Normal 27.0-33.0 Mean Corpuscular HGB Conc 31.4 g/dL Low 32.0-36.5 Red Cell Distribution Width 16.6 % High 11.5-14.5 Platelet Count, Automated 236 10 Normal 150-450 Neutrophils % 74.2 % High 36.0-66.0 Lymph % 17.4 % Low 24.0-44.0 [place] % 7.2 % High 0.0-5.0 Eos % 0.4 % Normal 0.0-3.0 Baso % 0.6 % Normal 0.0-1.0 Immature Granulocyte % 0.2 % Normal 0-3.0 Nucleated Red Blood Cell % 0.0 % Normal 0-0 Neutrophils # 4.1 10 Normal 1.5-8.5 Lymph # 1.0 10 Low 1.5-5.0 [place] # 0.4 10 Normal 0.0-0.8 Eos # 0.0 10 Normal 0.0-0.5 Baso # 0.0 10 Normal 0.0-0.2 Laboratory test finding 08/02/2020 [facility] Outpatient T esting (Registration) [address] [place] [address] [phone] Soluble Transferrin Receptor 22.5 nmol/L Normal 12 .2-27.3 4 CBC With Differential 08/02/2020 [facility] Outpatient Gail ting (Registration) [address] [place] [address] [phone] White Blood Count 4.6 10 Normal 4.0-10.0 Red Blood Count 3.31 10 Low 4.00-5.40 Hemoglobin 9.8 g/dL Low 12.0-15.5 Hematocrit 32.1 % Low 36.0-47.0 Mean Corpuscular Volume 97.0 fl High 80.0-96.0 Mean Corpuscular Hemoglobin 29.6 pg Normal 27.0-33.0 Mean Corpuscular HGB Conc 30.5 g/dL Low 32.0-36.5 Red Cell Distribution Width 17.5 % High 11.5-14.5 Platelet Count, Automated 216 10 Normal 150-450 Neutrophils % 70.5 % High 36.0-66.0 Lymph % 21.5 % Low 24.0-44.0 [place] % 6.8 % High 0.0-5.0 Eos % 0.4 % Normal 0.0-3.0 Baso % 0.4 % Normal 0.0-1.0 Immature Granulocyte % 0.4 % Normal 0-3.0 Nucleated Red Blood Cell % 0.0 % Normal 0-0 Neutrophils # 3.2 10 Normal 1.5-8.5 Lymph # 1.0 10 Low 1.5-5.0 [place] # 0.3 10 Normal 0.0-0.8 Eos # 0.0 10 Normal 0.0-0.5 Baso # 0.0 10 Normal 0.0-0.2 Comprehensive Metabolic Profil 08/02/2020 [facility] Outpa tient Testing (Registration) [address] [place] [address] [phone] Glucose, Fasting 96 mg/dL Normal 70-100 Blood Urea Nitrogen 11 mg/dL Normal 7-18 Creatinine For GFR 0.52 mg/dL Low 0.55-1.30 Glomerular Filtration Rate > 60.0 Normal >39 5 Sodium Level 142 mEq/L Normal 136-145 Potassium Serum 3.9 mEq/L Normal 3.5-5.1 Chloride Level 109 mEq/L High 98-107 Carbon Dioxide Level 26 mEq/L Normal 21-32 Anion Gap 7 mEq/L Low 8-16 Calcium Level 8.1 mg/dL Low 8.8-10.2 Ast/Sgot 15 U/L Normal 7-37 Alt/SGPT 12 U/L Normal 12-78 Alkaline Phosphatase 115 U/L Normal 45-117 Bilirubin,Total 0.5 mg/dL Normal 0.2-1.0 Total Protein 5.9 GM/DL Low 6.4-8.2 Albumin 2.3 GM/DL Low 3.2-5.2 Albumin/Globulin Ratio 0.6 Low 1.2-2.2 Laboratory test finding 08/02/2020 [facility] Outpatient T esting (Registration) [address] [place] [address] [phone] Ca19-9 Tumor Marker,Carbohydra 69.0 U/ML High < 35.0 6 Carcinoembryonic Antigen 3.1 NG/ML High <2.5 7 Vitamin B12 & Folate 08/02/2020 [facility] Outpatient Test ing (Registration) [address] [place] [address] [phone] Vitamin B12 Level 353 pg/mL Normal 8 Folate 14.1 NG/ML Normal 9 Laboratory test finding 07/04/2020 [facility] Outpatient T esting (Registration) [address] [place] [address] [phone] Ca19-9 Tumor Marker,Carbohydra 31.0 U/ML Normal < 35.0 10 Thyroid Stimulating Hormone 13.300 uIU/ML High 0.358-3.740 Free T4 1.01 ng/dL Normal 0.76-1.46 Comprehensive Metabolic Profil 07/04/2020 [facility] Outpa tient Testing (Registration) [address] [place] [address] [phone] Glucose, Fasting 142 mg/dL High 70-100 Blood Urea Nitrogen 12 mg/dL Normal 7-18 Creatinine For GFR 0.50 mg/dL Low 0.55-1.30 Glomerular Filtration Rate > 60.0 Normal >39 1 1 Sodium Level 141 mEq/L Normal 136-145 Potassium Serum 3.5 mEq/L Normal 3.5-5.1 Chloride Level 111 mEq/L High 98-107 Carbon Dioxide Level 23 mEq/L Normal 21-32 Anion Gap 7 mEq/L Low 8-16 Calcium Level 8.6 mg/dL Low 8.8-10.2 Ast/Sgot 20 U/L Normal 7-37 Alt/SGPT 19 U/L Normal 12-78 Alkaline Phosphatase 122 U/L High 45-117 Bilirubin,Total 0.2 mg/dL Normal 0.2-1.0 Total Protein 6.0 GM/DL Low 6.4-8.2 Albumin 2.6 GM/DL Low 3.2-5.2 Albumin/Globulin Ratio 0.8 Low 1.2-2.2 CBC With Differential 07/04/2020 [facility] Outpatient Gail ting (Registration) [address] [place] [address] [phone] White Blood Count 6.3 10 Normal 4.0-10.0 Red Blood Count 3.00 10 Low 4.00-5.40 Hemoglobin 8.9 g/dL Low 12.0-15.5 Hematocrit 29.4 % Low 36.0-47.0 Mean Corpuscular Volume 98.0 fl High 80.0-96.0 Mean Corpuscular Hemoglobin 29.7 pg Normal 27.0-33.0 Mean Corpuscular HGB Conc 30.3 g/dL Low 32.0-36.5 Red Cell Distribution Width 16.6 % High 11.5-14.5 Platelet Count, Automated 165 10 Normal 150-450 Neutrophils % 70.3 % High 36.0-66.0 Lymph % 22.5 % Low 24.0-44.0 [place] % 5.8 % High 0.0-5.0 Eos % 0.6 % Normal 0.0-3.0 Baso % 0.3 % Normal 0.0-1.0 Immature Granulocyte % 0.5 % Normal 0-3.0 Nucleated Red Blood Cell % 0.0 % Normal 0-0 Neutrophils # 4.4 10 Normal 1.5-8.5 Lymph # 1.4 10 Low 1.5-5.0 [place] # 0.4 10 Normal 0.0-0.8 Eos # 0.0 10 Normal 0.0-0.5 Baso # 0.0 10 Normal 0.0-0.2 CBC With Differential 06/02/2020 [facility] Outpatient Gail ting (Registration) [address] [place], [place] [id number] [phone] White Blood Count 7.8 10 Normal 4.0-10.0 Red Blood Count 2.47 10 Low 4.00-5.40 Hemoglobin 7.8 g/dL Low 12.0-15.5 Hematocrit 25.3 % Low 36.0-47.0 Mean Corpuscular Volume 102.4 fl High 80.0-96.0 Mean Corpuscular Hemoglobin 31.6 pg Normal 27.0-33.0 Mean Corpuscular HGB Conc 30.8 g/dL Low 32.0-36.5 Red Cell Distribution Width 13.4 % Normal 11.5-14.5 Platelet Count, Automated 318 10 Normal 150-450 Neutrophils % 73.7 % High 36.0-66.0 Lymph % 19.1 % Low 24.0-44.0 [place] % 6.0 % High 0.0-5.0 Eos % 0.4 % Normal 0.0-3.0 Baso % 0.3 % Normal 0.0-1.0 Immature Granulocyte % 0.5 % Normal 0-3.0 Nucleated Red Blood Cell % 0.0 % Normal 0-0 Neutrophils # 5.8 10 Normal 1.5-8.5 Lymph # 1.5 10 Normal 1.5-5.0 [place] # 0.5 10 Normal 0.0-0.8 Eos # 0.0 10 Normal 0.0-0.5 Baso # 0.0 10 Normal 0.0-0.2 Comprehensive Metabolic Profil 06/02/2020 [facility] Outpa tient Testing (Registration) [address] [place] [address] [phone] Glucose, Fasting 98 mg/dL Normal 70-100 Blood Urea Nitrogen 9 mg/dL Normal 7-18 Creatinine For GFR 0.38 mg/dL Low 0.55-1.30 Glomerular Filtration Rate > 60.0 Normal >39 1 2 Sodium Level 141 mEq/L Normal 136-145 Potassium Serum 4.0 mEq/L Normal 3.5-5.1 Chloride Level 109 mEq/L High 98-107 Carbon Dioxide Level 26 mEq/L Normal 21-32 Anion Gap 6 mEq/L Low 8-16 Calcium Level 7.9 mg/dL Low 8.8-10.2 Ast/Sgot 36 U/L Normal 7-37 Alt/SGPT 37 U/L Normal 12-78 Alkaline Phosphatase 138 U/L High 45-117 Bilirubin,Total 0.2 mg/dL Normal 0.2-1.0 Total Protein 6.3 GM/DL Low 6.4-8.2 Albumin 2.0 GM/DL Low 3.2-5.2 Albumin/Globulin Ratio 0.5 Low 1.2-2.2 Laboratory test finding 06/02/2020 [facility] Outpatient T esting (Registration) [address] [place] [address] [phone] Ca19-9 Tumor Marker,Carbohydra 26.8 U/ML Normal < 35.0 13 PT & Aptt 03/24/2020 [facility] Outpatient Testi ng (Registration) [address] [place] [address] [phone] Prothrombin Time 15.5 seconds High 11.8-14.0 Inr 1.20 Normal 14 Partial Thromboplastin Time 33.0 seconds Normal 25.0-38.4 CBC With Differential 03/24/2020 [facility] Outpatient Gail ting (Registration) [address] [place] [address] [phone] White Blood Count 3.9 10 Low 4.0-10.0 Red Blood Count 2.93 10 Low 4.00-5.40 Hemoglobin 10.6 g/dL Low 12.0-15.5 Hematocrit 32.4 % Low 36.0-47.0 Mean Corpuscular Volume 110.6 fl High 80.0-96.0 Mean Corpuscular Hemoglobin 36.2 pg High 27.0-33.0 Mean Corpuscular HGB Conc 32.7 g/dL Normal 32.0-36.5 Red Cell Distribution Width 15.9 % High 11.5-14.5 Platelet Count, Automated 173 10 Normal 150-450 Neutrophils % 65.0 % Normal 36.0-66.0 Lymph % 26.5 % Normal 24.0-44.0 [place] % 7.5 % High 0.0-5.0 Eos % 0.5 % Normal 0.0-3.0 Baso % 0.5 % Normal 0.0-1.0 Immature Granulocyte % 0.0 % Normal 0-3.0 Nucleated Red Blood Cell % 0.0 % Normal 0-0 Neutrophils # 2.5 10 Normal 1.5-8.5 Lymph # 1.0 10 Low 1.5-5.0 [place] # 0.3 10 Normal 0.0-0.8 Eos # 0.0 10 Normal 0.0-0.5 Baso # 0.0 10 Normal 0.0-0.2 Comprehensive Metabolic Profil 03/24/2020 [facility] Outpa tient Testing (Registration) [address] [place] [address] [phone] Glucose, Fasting 84 mg/dL Normal 70-100 Blood Urea Nitrogen 9 mg/dL Normal 7-18 Creatinine For GFR 0.43 mg/dL Low 0.55-1.30 Glomerular Filtration Rate > 60.0 Normal >39 1 5 Sodium Level 145 mEq/L Normal 136-145 Potassium Serum 3.5 mEq/L Normal 3.5-5.1 Chloride Level 113 mEq/L High 98-107 Carbon Dioxide Level 30 mEq/L Normal 21-32 Anion Gap 2 mEq/L Low 8-16 Calcium Level 8.4 mg/dL Low 8.8-10.2 Ast/Sgot 84 U/L High 7-37 Alt/SGPT 60 U/L Normal 12-78 Alkaline Phosphatase 195 U/L High 45-117 Bilirubin,Total 1.3 mg/dL High 0.2-1.0 Total Protein 5.8 GM/DL Low 6.4-8.2 Albumin 3.0 GM/DL Low 3.2-5.2 Albumin/Globulin Ratio 1.1 Low 1.2-2.2 Laboratory test finding 03/24/2020 [facility] Outpatient T esting (Registration) [address] [place] [address] [phone] Ca19-9 Tumor Marker,Carbohydra 30.0 U/ML Normal < 35.0 16 Prealbumin 8.9 mg/dL Low 20.0-40.0 CBC With Differential 03/08/2020 [facility] Outpatient Gail ting (Registration) [address] [place] [address] [phone] White Blood Count 6.8 10 Normal 4.0-10.0 Red Blood Count 2.91 10 Low 4.00-5.40 Hemoglobin 10.0 g/dL Low 12.0-15.5 Hematocrit 30.3 % Low 36.0-47.0 Mean Corpuscular Volume 104.1 fl High 80.0-96.0 Mean Corpuscular Hemoglobin 34.4 pg High 27.0-33.0 Mean Corpuscular HGB Conc 33.0 g/dL Normal 32.0-36.5 Red Cell Distribution Width 17.4 % High 11.5-14.5 Platelet Count, Automated 125 10 Low 150-450 Neutrophils % 69.3 % High 36.0-66.0 Lymph % 19.2 % Low 24.0-44.0 [place] % 10.0 % High 0.0-5.0 Eos % 0.3 % Normal 0.0-3.0 Baso % 0.6 % Normal 0.0-1.0 Immature Granulocyte % 0.6 % Normal 0-3.0 Nucleated Red Blood Cell % 0.0 % Normal 0-0 Neutrophils # 4.7 10 Normal 1.5-8.5 Lymph # 1.3 10 Low 1.5-5.0 [place] # 0.7 10 Normal 0.0-0.8 Eos # 0.0 10 Normal 0.0-0.5 Baso # 0.0 10 Normal 0.0-0.2 Comprehensive Metabolic Profil 03/08/2020 [facility] Outpa tient Testing (Registration) [address] [place] [address] [phone] Glucose, Fasting 96 mg/dL Normal 70-100 Blood Urea Nitrogen 11 mg/dL Normal 7-18 Creatinine For GFR 0.46 mg/dL Low 0.55-1.30 Glomerular Filtration Rate > 60.0 Normal >39 1 7 Sodium Level 146 mEq/L High 136-145 Potassium Serum 3.0 mEq/L Low 3.5-5.1 Chloride Level 111 mEq/L High 98-107 Carbon Dioxide Level 27 mEq/L Normal 21-32 Anion Gap 8 mEq/L Normal 8-16 Calcium Level 8.2 mg/dL Low 8.8-10.2 Ast/Sgot 93 U/L High 7-37 Alt/SGPT 101 U/L High 12-78 Alkaline Phosphatase 227 U/L High 45-117 Bilirubin,Total 0.7 mg/dL Normal 0.2-1.0 Total Protein 5.5 GM/DL Low 6.4-8.2 Albumin 2.9 GM/DL Low 3.2-5.2 Albumin/Globulin Ratio 1.1 Low 1.2-2.2 Laboratory test finding 03/08/2020 [facility] Outpatient T esting (Registration) [address] [place] [address] [phone] Ca19-9 Tumor Marker,Carbohydra TNP U/ML Normal < 35.0 1 Units are mL/min/1.73 m2 Chronic Kidney Disease Staging per NKF: Stage I & II GFR >=60 Normal to Mildly Decreased Stage III GFR 30-59 Moderately Decreased Stage IV GFR 15-29 Severely Decreased Stage V GFR <15 Very Little GFR Left ESRD GFR <15 on [employer] 2 THE CA 19-9 ASSAY IS PERFORM ED ON THE [employer] [facility] BY CHEMILUMINESCENCE AND SHOULD NOT BE COMPARED INTERCHANGEABLY WITH OTHER METHODS. IT SHOULD NOT BE USED ALONE A SCREENING TEST OR DIAGNOSIS FOR THE PRESENCE OR ABSENCE OF MALIGNANT DISEASE. PREDICTIONS OF DISEASE RECURRENCE SHOULD NOT BE BASED SOLELY ON VALUES OBTAINED FROM SERIAL PATIENT SERUM VALUES. 3 THE CEA ASSAY IS PERFORMED O N THE [facility] BY CHEMILUMINESCENCE AND SHOULD NOT BE COMPARED INTERCHANGEABLY WITH OTHER METHODS. IT SHOULD NOT BE USED ALONE A SCREENING TEST OR DIAGNOSIS FOR THE PRESENCE OR ABSENCE OF MALIGNANT DISEASE. PREDICTIONS OF DISEASE RECURRENCE SHOULD NOT BE BASED SOLELY ON VALUES OBTAINED FROM SERIAL PATIENT SERUM VALUES. 4 Performed at: [facility] [id number] Advanced Practice Psychiatric Nurse: Sherron Cottrell MD, Phone: [phone] 5 Units are mL/min/1.73 m2 Chronic Kidney Disease Staging per NKF: Stage I & II GFR >=60 Normal to Mildly Decreased Stage III GFR 30-59 Moderately Decreased Stage IV GFR 15-29 Severely Decreased Stage V GFR <15 Very Little GFR Left ESRD GFR <15 on [employer] 6 THE CA 19-9 ASSAY IS PERFORM ED ON THE [employer] [facility] BY CHEMILUMINESCENCE AND SHOULD NOT BE COMPARED INTERCHANGEABLY WITH OTHER METHODS. IT SHOULD NOT BE USED ALONE A SCREENING TEST OR DIAGNOSIS FOR THE PRESENCE OR ABSENCE OF MALIGNANT DISEASE. PREDICTIONS OF DISEASE RECURRENCE SHOULD NOT BE BASED SOLELY ON VALUES OBTAINED FROM SERIAL PATIENT SERUM VALUES. 7 THE CEA ASSAY IS PERFORMED O N THE [facility] BY CHEMILUMINESCENCE AND SHOULD NOT BE COMPARED INTERCHANGEABLY WITH OTHER METHODS. IT SHOULD NOT BE USED ALONE A SCREENING TEST OR DIAGNOSIS FOR THE PRESENCE OR ABSENCE OF MALIGNANT DISEASE. PREDICTIONS OF DISEASE RECURRENCE SHOULD NOT BE BASED SOLELY ON VALUES OBTAINED FROM SERIAL PATIENT SERUM VALUES. 8 VITAMIN B12 NORMAL RANGE NORMAL 247 - 911 PG/ML INDETERMINATE 211 - 246 PG/ML DEFICIENT LESS THAN 211 PG/ML 9 FOLATE NORMAL RANGE NORMAL GREATER THAN 5.4 NG/ML INDETERMINATE 3.4-5.4 NG/ML DEFICIENT LESS THAN 3.4 NG/ML 10 THE CA 19-9 ASSAY IS PERFORM ED ON THE [employer] [facility] BY CHEMILUMINESCENCE AND SHOULD NOT BE COMPARED INTERCHANGEABLY WITH OTHER METHODS. IT SHOULD NOT BE USED ALONE A SCREENING TEST OR DIAGNOSIS FOR THE PRESENCE OR ABSENCE OF MALIGNANT DISEASE. PREDICTIONS OF DISEASE RECURRENCE SHOULD NOT BE BASED SOLELY ON VALUES OBTAINED FROM SERIAL PATIENT SERUM VALUES. 11 Units are mL/min/1.73 m2 Chronic Kidney Disease Staging per NKF: Stage I & II GFR >=60 Normal to Mildly Decreased Stage III GFR 30-59 Moderately Decreased Stage IV GFR 15-29 Severely Decreased Stage V GFR <15 Very Little GFR Left ESRD GFR <15 on [employer] 12 Units are mL/min/1.73 m2 Chronic Kidney Disease Staging per NKF: Stage I & II GFR >=60 Normal to Mildly Decreased Stage III GFR 30-59 Moderately Decreased Stage IV GFR 15-29 Severely Decreased Stage V GFR <15 Very Little GFR Left ESRD GFR <15 on [employer]ISHER 13 THE CA 19-9 ASSAY IS PERFORM ED ON THE [employer] BY CHEMILUMINESCENCE AND SHOULD NOT BE COMPARED INTERCHANGEABLY WITH OTHER METHODS. IT SHOULD NOT BE USED ALONE A SCREENING TEST OR DIAGNOSIS FOR THE PRESENCE OR ABSENCE OF MALIGNANT DISEASE. PREDICTIONS OF DISEASE RECURRENCE SHOULD NOT BE BASED SOLELY ON VALUES OBTAINED FROM SERIAL PATIENT SERUM VALUES. 14 THERAPUTIC HUMAN INR VALUES INDICATIONS NORMAL RANGES PROPHYLAXIS/TREATMENT OF: VENOUS THROMBOSIS 2.0-3.0 PULMONARY EMBOLISM 2.0-3.0 PREVENTION OF SYSTEMIC EMBOLISM FROM: TISSUE HEART VALVES 2.0-3.0 ACUTE MYOCARDIAL INFARCTION 2.0-3.0 VALVULAR HEART DISEASE 2.0-3.0 ATRIAL FIBRILLATION 2.0-3.0 MECHANICAL VALVES(HIGH RISK) 2.5-3.5 RECURRENT MYOCARDIAL INFARCTION 2.5-3.5 15 Units are mL/min/1.73 m2 Chronic Kidney Disease Staging per NKF: Stage I & II GFR >=60 Normal to Mildly Decreased Stage III GFR 30-59 Moderately Decreased Stage IV GFR 15-29 Severely Decreased Stage V GFR <15 Very Little GFR Left ESRD GFR <15 on [employer]ISHER 16 THE CA 19-9 ASSAY IS PERFORM ED ON THE [employer] BY CHEMILUMINESCENCE AND SHOULD NOT BE COMPARED INTERCHANGEABLY WITH OTHER METHODS. IT SHOULD NOT BE USED ALONE A SCREENING TEST OR DIAGNOSIS FOR THE PRESENCE OR ABSENCE OF MALIGNANT DISEASE. PREDICTIONS OF DISEASE RECURRENCE SHOULD NOT BE BASED SOLELY ON VALUES OBTAINED FROM SERIAL PATIENT SERUM VALUES. 17 Units are mL/min/1.73 m2 Chronic Kidney Disease Staging per NKF: Stage I & II GFR >=60 Normal to Mildly Decreased Stage III GFR 30-59 Moderately Decreased Stage IV GFR 15-29 Severely Decreased Stage V GFR <15 Very Little GFR Left ESRD GFR <15 on [employer] Procedures Description No Information Available Medical Devices Description No Information Available Encounters Type Date Location Provider Dx Diagnosis Office Visit 07/11/2020 3:00p [facility] NIXON Mcduffie E03.9 Hypothyroidism, unspecified E78.2 Mixed hyperlipidemia Z85.00 Personal history of malignan t neoplasm of unsp dgstv org K21.9 Gastro-esophageal reflux dis ease without esophagitis Z79.899 Other detention (current) dr carolin therapy F41.1 Generalized anxiety disorder D64.9 Anemia, unspecified Assessments Date Code Description Provider 07/11/2020 E03.9 Hypothyroidism, unspecified Fredo NIXON Nicole 07/11/2020 E78.2 Mixed hyperlipidemia NIXON Negrete 07/11/2020 Z85.00 Personal history of malignant neoplasm of unspecified digestive organ NIXON Mcduffie 07/11/2020 K21.9 Gastro-esophageal reflux disease without esophagitis NIXON Mcduffie 07/11/2020 Z79.899 Other intermediate manager (current) drug t herapy NIXON Mcduffie 07/11/2020 F41.1 Generalized anxiety disorder NIXON Barber 07/11/2020 D64.9 Anemia, unspecified NIXON Momin Plan of Treatment Future Appointment(s):* 09/12/2020 2:30 pm - NIXON Mcduffie at [facility] 07/11/2020 - NIXON Mdcuffie* E03.9 Hypothyroidism, unspecified* New Medication:* Levothyroxine Sodium 88 mcg - take one tablet by mouth every morning * New Labs:* FT4&TSH Panel, Scheduled: 08/26/20 * Comments:* We will increase your Levothyroxine from 75 mcg to 88 mcg. * E78.2 Mixed hyperlipidemia* New Labs:* CBC With Differential, Scheduled: 08/26/20 * Comprehensive Metabolic Profil, Scheduled: 08/26/20 * Lipid Panel, Scheduled: 08/26/20 * Comments:* Crestor discontinued during chemo and will check cholesterol before next visit. 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 Chemotherapy planned to be restarted in August. * K21.9 Gastro-esophageal reflux disease without esophagitis* Comments:* Continue with Omeprazole 40 mg twice a day along with Sucralfate as needed. * Z79.899 Other detention (current) drug therapy * F41.1 Generalized anxiety disorder* Comments:* Lexapro discontinued and taking Lorazepam as needed. We will eventually try to wean you off this medicaiton * D64.9 Anemia, unspecified* New Labs:* Total Iron Binding Capacit, Scheduled: 08/26/20 * Ferritin, Scheduled: 08/26/20 * Comments:* Improving but will recheck before next visit. Functional Status Description No Information Available Mental Status Description No Information Available Referrals Refer to Reason for Referral Status Appt Date [facility] Physical Therapy Eleanor has pancreatic c ancer and currently under going chemo with planned soon to have abdominal surgery. She has had general fatigue, muscle atrophy and is interested in regaining some strength before upcoming surgery. Sent [address] [facility] [place] [address] [phone]
--- OUTSIDE RECORDS SUMMARY | 2020-09-09 23:06 | CCD | Continuity of Care Document ---
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 AUTM [phone] [facility] Physical Therapy AUTM [phone] [facility] AUTM [phone] Problems Active Problems Provider Date Elevated blood-pressure [...] hours as needed for p ain istop: [id number] 120tabs D49.0 Alex WrightOLaura 08/31/2019 Blood Pressure Monitor Digital[facility], check blood pressure regularly 1units I10 Brandi Lopez D.O. 07/14/2019 Voltaren 1% Gel apply 3 grams to painful area on both feet twice daily as needed 100gm M79.672 Alex WrightOLaura 06/21/2016 M79.671 Gas Relief 180mg Capsules prn Unknown Creon [id number] Caps DR Small Take 2 Capsules 3 [...] every twelve hours by mouth 180tabs Alex WrgihtOLaura Lorazepam 0.5mg Tablets take 1 tab by mouth twice a daily as needed for nausea istop: [id number] 60tabs Kirsten Wright.O. History Medications Promethazine HCL 12.5mg Tablets take one tablet by mouth every 6 hours 60tabs Brandi justice, D.O. 07/11/2020 - 07/11/2020 Medications Administered in Office Medication SIG Qnty Indications Ordering Provider Date Immunization Administration Single Or Co mbination Injection Kirsten Wright 05/20/2015 Immunizations CPT Code Status Date Vaccine Lot # [id number] Given 05/29/2018 Influenza Virus Vaccine, Quadrivalent, Split, Preservative Free [id number] Given 05/29/2018 Pneumococcal Con jugate Vaccine 13 Valent For Intramuscular Use [id number] Given 05/20/2015 Zoster Shingles Vaccine For Subcutaneous Injection Vital Signs Date Vital Result Comment 07/11/2020 2:51pm BP Systolic 124 mmHg BP Diastolic 60 mmHg Height 65 inches 5'5" Weight 137.38 lb BMI (Body Mass Index) 22.9 kg/m2 Heart Rate 76 /min Respiratory Rate 18 /min Body Temperature 97.6 F O2 % BldC Oximetry 99 % [place] Body Weight 125 lb 12/03/2019 2:23pm BP Systolic 130 mmHg BP Diastolic 70 mmHg Height 65 inches 5'5" Weight 163.00 lb BMI (Body Mass Index) 27.1 kg/m2 Heart Rate 84 /min Respiratory Rate 18 /min Body Temperature 97.9 F O2 % BldC Oximetry 99 % [place] Body Weight 125 lb Results Test Acquired Date Facility Test Result H/L Range Note CBC With Differential 08/31/2020 [facility] Outpatient Gail nash (Registration) [address] [place] [address] [phone] White Blood Count 15.7 10 High 4.0-10.0 [...] 36.0-66.0 Lymph % 10.1 % Low 24.0-44.0 [place] % 7.0 % High 0.0-5.0 Eos % 0.4 % Normal 0.0-3.0 Baso % 0.6 % Normal 0.0-1.0 Immature Granulocyte % 8.8 % High 0-3.0 Nucleated Red Blood Cell % 0.1 % High 0-0 Neutrophils # 11.5 10 High 1.5-8.5 Lymph # 1.6 10 Normal 1.5-5.0 [place] # 1.1 10 High 0.0-0.8 Eos # 0.1 10 Normal 0.0-0.5 Baso # 0.1 10 Normal 0.0-0.2 Comprehensive Metabolic Profil 08/31/2020 [facility] Outpa tient Testing (Registration) [address] [place] [address] [phone] Glucose, Fasting 124 mg/dL High 70-100 Blood [...] Low 3.2-5.2 Albumin/Globulin Ratio 0.7 Low 1.2-2.2 CBC With Differential 08/16/2020 [facility] Outpatient Gail ting (Registration) [address] [place] [address] [phone] White Blood Count 5.5 10 Normal 4.0-10.0 [...] 36.0-66.0 Lymph % 17.4 % Low 24.0-44.0 [place] % 7.2 % High 0.0-5.0 Eos % 0.4 % Normal 0.0-3.0 Baso % 0.6 % Normal 0.0-1.0 Immature Granulocyte % 0.2 % Normal 0-3.0 Nucleated Red Blood Cell % 0.0 % Normal 0-0 Neutrophils # 4.1 10 Normal 1.5-8.5 Lymph # 1.0 10 Low 1.5-5.0 [place] # 0.4 10 Normal 0.0-0.8 Eos # 0.0 10 Normal 0.0-0.5 Baso # 0.0 10 Normal 0.0-0.2 Laboratory test finding 08/02/2020 [facility] Outpatient T esting (Registration) [address] [place] [address] [phone] Soluble Transferrin Receptor 22.5 nmol/L Normal 12 .2-27.3 2 CBC With Differential 08/02/2020 [facility] Outpatient Gail ting (Registration) [address] [place] [address] [phone] White Blood Count 4.6 10 Normal 4.0-10.0 [...] 36.0-66.0 Lymph % 21.5 % Low 24.0-44.0 [place] % 6.8 % High 0.0-5.0 Eos % 0.4 % Normal 0.0-3.0 Baso % 0.4 % Normal 0.0-1.0 Immature Granulocyte % 0.4 % Normal 0-3.0 Nucleated Red Blood Cell % 0.0 % Normal 0-0 Neutrophils # 3.2 10 Normal 1.5-8.5 Lymph # 1.0 10 Low 1.5-5.0 [place] # 0.3 10 Normal 0.0-0.8 Eos # 0.0 10 Normal 0.0-0.5 Baso # 0.0 10 Normal 0.0-0.2 Comprehensive Metabolic Profil 08/02/2020 [facility] Outpa tient Testing (Registration) [address] [place], [place] [id number] [phone] Glucose, Fasting 96 mg/dL Normal 70-100 Blood Urea Nitrogen 11 mg/dL Normal 7-18 Creatinine For GFR 0.52 mg/dL Low 0.55-1.30 Glomerular Filtration Rate > 60.0 Normal >39 3 Sodium Level 142 mEq/L Normal 136-145 Potassium [...] 0.6 Low 1.2-2.2 Laboratory test finding 08/02/2020 [facility] Outpatient T esting (Registration) [address] [place], [place] [address] [phone] Ca19-9 Tumor Marker,Carbohydra 69.0 U/ML High < 35.0 4 Carcinoembryonic Antigen 3.1 NG/ML High <2.5 5 Vitamin B12 & Folate 08/02/2020 [facility] Outpatient Test ing (Registration) [address] [place] [address] [phone] Vitamin B12 Level 353 pg/mL Normal 6 Folate 14.1 NG/ML Normal 7 Laboratory test finding 07/04/2020 [facility] Outpatient T esting (Registration) [address] [place], [place] [address] [phone] Ca19-9 Tumor Marker,Carbohydra 31.0 U/ML Normal < 35.0 8 Thyroid Stimulating Hormone 13.300 uIU/ML High 0.358-3.740 Free T4 1.01 ng/dL Normal 0.76-1.46 Comprehensive Metabolic Profil 07/04/2020 [facility] Outpa tient Testing (Registration) [address] [place], [place] [id number] [phone] Glucose, Fasting 142 mg/dL High 70-100 Blood Urea Nitrogen 12 mg/dL Normal 7-18 Creatinine For GFR 0.50 mg/dL Low 0.55-1.30 Glomerular Filtration Rate > 60.0 Normal >39 9 Sodium Level 141 mEq/L Normal 136-145 Potassium [...] 0.8 Low 1.2-2.2 CBC With Differential 07/04/2020 [facility] Outpatient Gail ting (Registration) [address] [place], [place] [address] [phone] White Blood Count 6.3 10 Normal 4.0-10.0 [...] 36.0-66.0 Lymph % 22.5 % Low 24.0-44.0 [place] % 5.8 % High 0.0-5.0 Eos % 0.6 % Normal 0.0-3.0 Baso % 0.3 % Normal 0.0-1.0 Immature Granulocyte % 0.5 % Normal 0-3.0 Nucleated Red Blood Cell % 0.0 % Normal 0-0 Neutrophils # 4.4 10 Normal 1.5-8.5 Lymph # 1.4 10 Low 1.5-5.0 [place] # 0.4 10 Normal 0.0-0.8 Eos # 0.0 10 Normal 0.0-0.5 Baso # 0.0 10 Normal 0.0-0.2 CBC With Differential 06/02/2020 [facility] Outpatient Gail ting (Registration) [address] [place] [address] [phone] White Blood Count 7.8 10 Normal 4.0-10.0 [...] 36.0-66.0 Lymph % 19.1 % Low 24.0-44.0 [place] % 6.0 % High 0.0-5.0 Eos % 0.4 % Normal 0.0-3.0 Baso % 0.3 % Normal 0.0-1.0 Immature Granulocyte % 0.5 % Normal 0-3.0 Nucleated Red Blood Cell % 0.0 % Normal 0-0 Neutrophils # 5.8 10 Normal 1.5-8.5 Lymph # 1.5 10 Normal 1.5-5.0 [place] # 0.5 10 Normal 0.0-0.8 Eos # 0.0 10 Normal 0.0-0.5 Baso # 0.0 10 Normal 0.0-0.2 Comprehensive Metabolic Profil 06/02/2020 [facility] Outpa tient Testing (Registration) [address] [place] [address] [phone] Glucose, Fasting 98 mg/dL Normal 70-100 Blood Urea Nitrogen 9 mg/dL Normal 7-18 Creatinine For GFR 0.38 mg/dL Low 0.55-1.30 Glomerular Filtration Rate > 60.0 Normal >39 1 0 Sodium Level 141 mEq/L Normal 136-145 Potassium [...] 0.5 Low 1.2-2.2 Laboratory test finding 06/02/2020 [facility] Outpatient T esting (Registration) [address] [place] [address] [phone] Ca19-9 Tumor Marker,Carbohydra 26.8 U/ML Normal < 35.0 11 PT & Aptt 03/24/2020 [facility] Outpatient Testi ng (Registration) [address] [place] [address] [phone] Prothrombin Time 15.5 seconds High 11.8-14.0 Inr 1.20 Normal 12 Partial Thromboplastin Time 33.0 seconds Normal 25.0-38.4 CBC With Differential 03/24/2020 [facility] Outpatient Gail ting (Registration) [address] [place] [address] [phone] White Blood Count 3.9 10 Low 4.0-10.0 [...] 36.0-66.0 Lymph % 26.5 % Normal 24.0-44.0 [place] % 7.5 % High 0.0-5.0 Eos % 0.5 % Normal 0.0-3.0 Baso % 0.5 % Normal 0.0-1.0 Immature Granulocyte % 0.0 % Normal 0-3.0 Nucleated Red Blood Cell % 0.0 % Normal 0-0 Neutrophils # 2.5 10 Normal 1.5-8.5 Lymph # 1.0 10 Low 1.5-5.0 [place] # 0.3 10 Normal 0.0-0.8 Eos # 0.0 10 Normal 0.0-0.5 Baso # 0.0 10 Normal 0.0-0.2 Comprehensive Metabolic Profil 03/24/2020 [facility] Outpa tient Testing (Registration) [address] [place] [address] [phone] Glucose, Fasting 84 mg/dL Normal 70-100 Blood Urea Nitrogen 9 mg/dL Normal 7-18 Creatinine For GFR 0.43 mg/dL Low 0.55-1.30 Glomerular Filtration Rate > 60.0 Normal >39 1 3 Sodium Level 145 mEq/L Normal 136-145 Potassium [...] 1.1 Low 1.2-2.2 Laboratory test finding 03/24/2020 [facility] Outpatient T esting (Registration) [address] [place] [address] [phone] Ca19-9 Tumor Marker,Carbohydra 30.0 U/ML Normal < 35.0 14 Prealbumin 8.9 mg/dL Low 20.0-40.0 CBC With Differential 03/08/2020 [facility] Outpatient Gail saad (Registration) [address] [place] [address] [phone] White Blood Count 6.8 10 Normal 4.0-10.0 [...] 36.0-66.0 Lymph % 19.2 % Low 24.0-44.0 [place] % 10.0 % High 0.0-5.0 Eos % 0.3 % Normal 0.0-3.0 Baso % 0.6 % Normal 0.0-1.0 Immature Granulocyte % 0.6 % Normal 0-3.0 Nucleated Red Blood Cell % 0.0 % Normal 0-0 Neutrophils # 4.7 10 Normal 1.5-8.5 Lymph # 1.3 10 Low 1.5-5.0 [place] # 0.7 10 Normal 0.0-0.8 Eos # 0.0 10 Normal 0.0-0.5 Baso # 0.0 10 Normal 0.0-0.2 Comprehensive Metabolic Profil 03/08/2020 [facility] Outpa tient Testing (Registration) [address] [place], [place] [id number] [phone] Glucose, Fasting 96 mg/dL Normal 70-100 Blood Urea Nitrogen 11 mg/dL Normal 7-18 Creatinine For GFR 0.46 mg/dL Low 0.55-1.30 Glomerular Filtration Rate > 60.0 Normal >39 1 5 Sodium Level 146 mEq/L High 136-145 Potassium [...] 1.1 Low 1.2-2.2 Laboratory test finding 03/08/2020 [facility] Outpatient T esting (Registration) [address] [place], [place] [address] [phone] Ca19-9 Tumor Marker,Carbohydra TNP U/ML Normal < 35.0 1 Units are mL/min/1.73 m2 Chronic Kidney Disease Staging per NKF: Stage I & II GFR >=60 Normal to Mildly Decreased Stage III GFR 30-59 Moderately Decreased Stage IV GFR 15-29 Severely Decreased Stage V GFR <15 Very Little GFR Left ESRD GFR <15 on PHLEBOTOMIST PRN 2 Performed at: [facility] [id number] Radio Broadcaster: Sherron Cottrell MD, Phone: [phone] Units are mL/min/1.73 m2 Chronic Kidney Disease Staging per NKF: Stage I & II GFR >=60 Normal to Mildly Decreased Stage III GFR 30-59 Moderately Decreased Stage IV GFR 15-29 Severely Decreased Stage V GFR <15 Very Little GFR Left ESRD GFR <15 on PHLEBOTOMIST PRN 4 THE CA 19-9 ASSAY IS PERFORM ED ON THE [employer] BY CHEMILUMINESCENCE AND SHOULD NOT BE COMPARED INTERCHANGEABLY WITH OTHER METHODS. IT SHOULD NOT BE USED ALONE A SCREENING TEST OR DIAGNOSIS FOR THE PRESENCE OR ABSENCE OF MALIGNANT DISEASE. PREDICTIONS OF DISEASE RECURRENCE SHOULD NOT BE BASED SOLELY ON VALUES OBTAINED FROM SERIAL PATIENT SERUM VALUES. 5 THE CEA ASSAY IS PERFORMED O N THE [employer] BY CHEMILUMINESCENCE AND SHOULD NOT BE COMPARED INTERCHANGEABLY WITH OTHER METHODS. IT SHOULD NOT BE USED ALONE A SCREENING TEST OR DIAGNOSIS FOR THE PRESENCE OR ABSENCE OF MALIGNANT DISEASE. PREDICTIONS OF DISEASE RECURRENCE SHOULD NOT BE BASED SOLELY ON VALUES OBTAINED FROM SERIAL PATIENT SERUM VALUES. 6 VITAMIN B12 NORMAL RANGE NORMAL 247 - 911 PG/ML INDETERMINATE 211 - 246 PG/ML DEFICIENT LESS THAN 211 PG/ML 7 FOLATE NORMAL RANGE NORMAL GREATER THAN 5.4 NG/ML INDETERMINATE 3.4-5.4 NG/ML DEFICIENT LESS THAN 3.4 NG/ML 8 THE CA 19-9 ASSAY IS PERFORM ED ON THE [employer] BY CHEMILUMINESCENCE AND SHOULD NOT BE COMPARED INTERCHANGEABLY WITH OTHER METHODS. IT SHOULD NOT BE USED ALONE A SCREENING TEST OR DIAGNOSIS FOR THE PRESENCE OR ABSENCE OF MALIGNANT DISEASE. PREDICTIONS OF DISEASE RECURRENCE SHOULD NOT BE BASED SOLELY ON VALUES OBTAINED FROM SERIAL PATIENT SERUM VALUES. 9 Units are mL/min/1.73 m2 Chronic Kidney Disease Staging per NKF: Stage I & II GFR >=60 Normal to Mildly Decreased Stage III GFR 30-59 Moderately Decreased Stage IV GFR 15-29 Severely Decreased Stage V GFR <15 Very Little GFR Left ESRD GFR <15 on PHLEBOTOMIST PRN 10 Units are mL/min/1.73 m2 Chronic Kidney Disease Staging per NKF: Stage I & II GFR >=60 Normal to Mildly Decreased Stage III GFR 30-59 Moderately Decreased Stage IV GFR 15-29 Severely Decreased Stage V GFR <15 Very Little GFR Left ESRD GFR <15 on PHLEBOTOMIST PRN 11 THE CA 19-9 ASSAY IS PERFORM ED ON THE [employer] BY CHEMILUMINESCENCE AND SHOULD NOT BE COMPARED INTERCHANGEABLY WITH OTHER METHODS. IT SHOULD NOT BE USED ALONE A SCREENING TEST OR DIAGNOSIS FOR THE PRESENCE OR ABSENCE OF MALIGNANT DISEASE. PREDICTIONS OF DISEASE RECURRENCE SHOULD NOT BE BASED SOLELY ON VALUES OBTAINED FROM SERIAL PATIENT SERUM VALUES. 12 THERAPUTIC HUMAN INR VALUES INDICATIONS NORMAL RANGES PROPHYLAXIS/TREATMENT OF: VENOUS THROMBOSIS 2.0-3.0 PULMONARY EMBOLISM 2.0-3.0 PREVENTION OF SYSTEMIC EMBOLISM FROM: TISSUE HEART VALVES 2.0-3.0 ACUTE MYOCARDIAL INFARCTION 2.0-3.0 VALVULAR HEART DISEASE 2.0-3.0 ATRIAL FIBRILLATION 2.0-3.0 MECHANICAL VALVES(HIGH RISK) 2.5-3.5 RECURRENT MYOCARDIAL INFARCTION 2.5-3.5 13 Units are mL/min/1.73 m2 Chronic Kidney Disease Staging per NKF: Stage I & II GFR >=60 Normal to Mildly Decreased Stage III GFR 30-59 Moderately Decreased Stage IV GFR 15-29 Severely Decreased Stage V GFR <15 Very Little GFR Left ESRD GFR <15 on PHLEBOTOMIST PRN 14 THE CA 19-9 ASSAY IS PERFORM ED ON THE [employer] BY CHEMILUMINESCENCE AND SHOULD NOT BE COMPARED INTERCHANGEABLY WITH OTHER METHODS. IT SHOULD NOT BE USED ALONE A SCREENING TEST OR DIAGNOSIS FOR THE PRESENCE OR ABSENCE OF MALIGNANT DISEASE. PREDICTIONS OF DISEASE RECURRENCE SHOULD NOT BE BASED SOLELY ON VALUES OBTAINED FROM SERIAL PATIENT SERUM VALUES. 15 Units are mL/min/1.73 m2 Chronic Kidney Disease Staging per NKF: Stage I & II GFR >=60 Normal to Mildly Decreased Stage III GFR 30-59 Moderately Decreased Stage IV GFR 15-29 Severely Decreased Stage V GFR <15 Very Little GFR Left ESRD GFR <15 on PHLEBOTOMIST PRN Procedures Description No Information Available Medical Devices Description No Information Available Encounters Type Date Location Provider Dx Diagnosis Office Visit 07/11/2020 3:00p [facility] NIXON Mcduffie E03.9 Hypothyroidism, unspecified E78.2 Mixed hyperlipidemia Z85.00 Personal history of malignan t neoplasm of [facility] org K21.9 Gastro-esophageal reflux dis ease without esophagitis Z79.899 [facility] dr coe therapy F41.1 Generalized anxiety disorder D64.9 Anemia, unspecified Assessments Date Code Description Provider 07/11/2020 E03.9 Hypothyroidism, unspecified Fredo NIXON Nicole 07/11/2020 E78.2 Mixed hyperlipidemia NIXON Negrete 07/11/2020 Z85.00 Personal history of malignant neoplasm of unspecified digestive organ NIXON Mcduffie 07/11/2020 K21.9 Gastro-esophageal reflux disease without esophagitis NIXON Mcduffie 07/11/2020 Z79.899 Other [facility]iary (current[facility] drug t herapy NIXON Mcduffie 07/11/2020 F41.1 Generalized anxiety disorder NIXON Barber 07/11/2020 D64.9 Anemia, unspecified NIXON Momin Plan of Treatment Future Appointment(s):* 09/12/2020 2:30 pm - NIXON Mcduffie at [facility] 07/11/2020 - NIXON Mcduffie* E03.9 Hypothyroidism, unspecified* New Medication:* Levothyroxine Sodium [...] with Sucralfate as needed. * Z79.899 Other [facility]iary (current) drug therapy * F41.1 Generalized anxiety [...] to Reason for Referral Status Appt Date [facility] Physical Therapy Eleanor has pancreatic c ancer and currently under going chemo with planned soon to have abdominal surgery. She has had general fatigue, muscle atrophy and is interested in regaining some strength before upcoming surgery. Sent [address] [facility] [place] [address] [phone]
--- OUTSIDE RECORDS SUMMARY | 2020-09-09 23:08 | CCD ---
Author Author [facility] Organization [facility] Address Unknown Phone Unavailable Care Team Providers Care Hydraulic Repairer Name Role Phone Fran GOMEZ Unavailable Unavailable Gloria Rivera MD Unavailable Unavailable Gloria Rivera MD Unavailable Unavailable ALIASES , DEFAULT / GENERIC / UNKNOWN PROVIDER * Unavailable Unavailable ALIASES , DEFAULT / GENERIC / UNKNOWN PROVIDER * Unavailable Unavailable ALIASES , DEFAULT / GENERIC / UNKNOWN PROVIDER * Unavailable Unavailable ALIASES , DEFAULT / GENERIC / UNKNOWN PROVIDER * Unavailable Unavailable ALIASES , DEFAULT / GENERIC / UNKNOWN PROVIDER * Unavailable Unavailable ALIASES , DEFAULT / GENERIC / UNKNOWN PROVIDER * Unavailable Unavailable ALIASES , DEFAULT / GENERIC / UNKNOWN PROVIDER * Unavailable Unavailable ALIASES , DEFAULT / GENERIC / UNKNOWN PROVIDER * Unavailable Unavailable ALIASES , DEFAULT / GENERIC / UNKNOWN PROVIDER * Unavailable Unavailable ALIASES , DEFAULT / GENERIC / UNKNOWN PROVIDER * Unavailable Unavailable ALIASES , DEFAULT / GENERIC / UNKNOWN PROVIDER * Unavailable Unavailable ALIASES , DEFAULT / GENERIC / UNKNOWN PROVIDER * Unavailable Unavailable ALIASES , DEFAULT / GENERIC / UNKNOWN PROVIDER * Unavailable Unavailable ALIASES , DEFAULT / GENERIC / UNKNOWN PROVIDER * Unavailable Unavailable ALIASES , DEFAULT / GENERIC / UNKNOWN PROVIDER * Unavailable Unavailable ALIASES , DEFAULT / GENERIC / UNKNOWN PROVIDER * Unavailable Unavailable ALIASES , DEFAULT / GENERIC / UNKNOWN PROVIDER * Unavailable Unavailable ALIASES , DEFAULT / GENERIC / UNKNOWN PROVIDER * Unavailable Unavailable ALIASES , DEFAULT / GENERIC / UNKNOWN PROVIDER * Unavailable Unavailable ALIASES , DEFAULT / GENERIC / UNKNOWN PROVIDER * Unavailable Unavailable ALIASES , DEFAULT / GENERIC / UNKNOWN PROVIDER * Unavailable Unavailable ALIASES , DEFAULT / GENERIC / UNKNOWN PROVIDER * Unavailable Unavailable ALIASES , DEFAULT / GENERIC / UNKNOWN PROVIDER * Unavailable Unavailable ALIASES , DEFAULT / GENERIC / UNKNOWN PROVIDER * Unavailable Unavailable ALIASES , DEFAULT / GENERIC / UNKNOWN PROVIDER * Unavailable Unavailable ALIASES , DEFAULT / GENERIC / UNKNOWN PROVIDER * Unavailable Unavailable ALIASES , DEFAULT / GENERIC / UNKNOWN PROVIDER * Unavailable Unavailable ALIASES , DEFAULT / GENERIC / UNKNOWN PROVIDER * Unavailable Unavailable ALIASES , DEFAULT / GENERIC / UNKNOWN PROVIDER * Unavailable Unavailable ALIASES , DEFAULT / GENERIC / UNKNOWN PROVIDER * Unavailable Unavailable ALIASES , DEFAULT / GENERIC / UNKNOWN PROVIDER * Unavailable Unavailable ALIASES , DEFAULT / GENERIC / UNKNOWN PROVIDER * Unavailable Unavailable ALIASES , DEFAULT / GENERIC / UNKNOWN PROVIDER * Unavailable Unavailable ALIASES , DEFAULT / GENERIC / UNKNOWN PROVIDER * Unavailable Unavailable ALIASES , DEFAULT / GENERIC / UNKNOWN PROVIDER * Unavailable Unavailable ALIASES , DEFAULT / GENERIC / UNKNOWN PROVIDER * Unavailable Unavailable ALIASES , DEFAULT / GENERIC / UNKNOWN PROVIDER * Unavailable Unavailable ALIASES , DEFAULT / GENERIC / UNKNOWN PROVIDER * Unavailable Unavailable ALIASES , DEFAULT / GENERIC / UNKNOWN PROVIDER * Unavailable Unavailable ALIASES , DEFAULT / GENERIC / UNKNOWN PROVIDER * Unavailable Unavailable ALIASES , DEFAULT / GENERIC / UNKNOWN PROVIDER * Unavailable Unavailable ALIASES , DEFAULT / GENERIC / UNKNOWN PROVIDER * Unavailable Unavailable ALIASES , DEFAULT / GENERIC / UNKNOWN PROVIDER * Unavailable Unavailable O'vi, A Taiwo PA Unavailable Unavailable O'vi, A Taiwo PA Unavailable Unavailable O'vi, A Taiwo PA Unavailable Unavailable O'vi, A Taiwo PA Unavailable Unavailable O'vi, A Taiwo PA Unavailable Unavailable O'vi, A Taiwo PA Unavailable Unavailable O'vi, A Taiwo PA Unavailable Unavailable O'vi, A Taiwo PA Unavailable Unavailable O'vi, A Taiwo PA Unavailable Unavailable O'vi, A Taiwo PA Unavailable Unavailable O'vi, A Taiwo PA Unavailable Unavailable O'vi, A Taiwo PA Unavailable Unavailable O'vi, A Taiwo PA Unavailable Unavailable O'vi, A Taiwo PA Unavailable Unavailable O'vi, A Taiwo PA Unavailable Unavailable O'vi, A Taiwo PA Unavailable Unavailable O'vi, A Taiwo PA Unavailable Unavailable O'vi, A Taiwo PA Unavailable Unavailable O'vi, A Taiwo PA Unavailable Unavailable O'vi, A Taiwo PA Unavailable Unavailable O'vi, A Taiwo PA Unavailable Unavailable O'vi, A Taiwo PA Unavailable Unavailable O'vi, A Taiwo PA Unavailable Unavailable O'vi, A Taiwo PA Unavailable Unavailable O'vi, A Taiwo PA Unavailable Unavailable O'vi, A Taiwo PA Unavailable Unavailable O'vi, A Taiwo PA Unavailable Unavailable O'vi, A Taiwo PA Unavailable Unavailable O'vi, A Taiwo PA Unavailable Unavailable O'vi, A Taiwo PA Unavailable Unavailable O'vi, A Taiwo PA Unavailable Unavailable O'vi, A Taiwo PA Unavailable Unavailable Kale HUBBARD Unavailable Unavailable Anupam, Oliver DO Unavailable Unavailable Anupam, Oliver DO Unavailable Unavailable Anupam, Oliver DO Unavailable Unavailable Anupam, Oliver DO Unavailable Unavailable Anupam, Oliver DO Unavailable Unavailable Anupam, Oliver DO Unavailable Unavailable Anupam, Oliver DO Unavailable Unavailable Anupam, Oliver DO Unavailable Unavailable Anupam, Oliver DO Unavailable Unavailable Anupam, Oliver DO Unavailable Unavailable Anupam, Oliver DO Unavailable Unavailable Anupam, Oliver DO Unavailable Unavailable Anupam, Oliver DO Unavailable Unavailable Anupam, Oliver DO Unavailable Unavailable Anupam, Oliver DO Unavailable Unavailable Anupam, Oliver DO Unavailable Unavailable Anupam, Oliver DO Unavailable Unavailable Anupam, Oliver DO Unavailable Unavailable Anupam, Oliver DO Unavailable Unavailable Anupam, Oliver DO Unavailable Unavailable Anupam, Oliver DO Unavailable Unavailable Anupam, Oliver DO Unavailable Unavailable Anupam, Oliver DO Unavailable Unavailable Anupam, Oliver DO Unavailable Unavailable Anupam, Oilver DO Unavailable Unavailable Anupam, Oliver DO Unavailable Unavailable Anupam, Oliver DO Unavailable Unavailable Anupam, Oliver DO Unavailable Unavailable Anupam, Oliver DO Unavailable Unavailable Anupam, Oliver DO Unavailable Unavailable Anupam, Oliver DO Unavailable Unavailable Anupam, Oliver DO Unavailable Unavailable Anupam, Oliver DO Unavailable Unavailable Anupam, Oliver DO Unavailable Unavailable Anupam, Oliver DO Unavailable Unavailable Anupam, Oliver DO Unavailable Unavailable Anupam, Oliver DO Unavailable Unavailable Anupam, Oliver DO Unavailable Unavailable Anupam, Oliver DO Unavailable Unavailable Anupam, Oliver DO Unavailable Unavailable Anupam, Oliver DO Unavailable Unavailable Anupam, Oliver DO Unavailable Unavailable Anupam, Oliver DO Unavailable Unavailable Anupam, Oliver DO Unavailable Unavailable Anupam, Oliver DO Unavailable Unavailable Anupam, Oliver DO Unavailable Unavailable Anupam, Oliver DO Unavailable Unavailable Anupam, Oliver DO Unavailable Unavailable Anupam, Oliver DO Unavailable Unavailable Anupam, Olievr DO Unavailable Unavailable Anupam, Oliver DO Unavailable Unavailable Anupam, Oliver DO Unavailable Unavailable Anupam, Oliver DO Unavailable Unavailable Anupam, Oliver DO Unavailable Unavailable Anupam, Oliver DO Unavailable Unavailable Anupam, Oliver DO Unavailable Unavailable Anupam, Oliver DO Unavailable Unavailable Anupam, Oliver DO Unavailable Unavailable Anupam, Oliver DO Unavailable Unavailable Anupam, Oliver DO Unavailable Unavailable Anupam, Oliver DO Unavailable Unavailable Anupam, Oliver DO Unavailable Unavailable Anupam, Oliver DO Unavailable Unavailable Anupam, Oliver DO Unavailable Unavailable Anupam, Oliver DO Unavailable Unavailable Anupam, Oliver DO Unavailable Unavailable Anupam, Oliver DO Unavailable Unavailable Anupam, Oliver DO Unavailable Unavailable Anupam, Oliver DO Unavailable Unavailable Anupam, Oliver DO Unavailable Unavailable Anupam, Oliver DO Unavailable Unavailable Anupam, Oliver DO Unavailable Unavailable Anupam, Oliver DO Unavailable Unavailable Anupam, Oliver DO Unavailable Unavailable Anupam, Oliver DO Unavailable Unavailable Anupam, Oliver DO Unavailable Unavailable Kale Jones MD Unavailable Unavailable Kale Jones MD Unavailable Unavailable Kale Jones MD Unavailable Unavailable Kale Jones MD Unavailable Unavailable Kale Jones MD Unavailable Unavailable Kale Jones MD Unavailable Unavailable Kale Jones MD Unavailable Unavailable Kale Jones MD Unavailable Unavailable Kale Jones MD Unavailable Unavailable Kale Jones MD Unavailable Unavailable Kale Jones MD Unavailable Unavailable ISAC WHITTINGTON MD Unavailable Unavailable ISAC WHITTINGTON MD Unavailable Unavailable ISAC WHITTINGTON MD Unavailable Unavailable ISAC WHITTINGTON MD Unavailable Unavailable ISAC WHITTINGTON MD Unavailable Unavailable ISAC WHITTINGTON MD Unavailable Unavailable ISAC WHITTINGTON MD Unavailable Unavailable ISAC WHITTINGTON MD Unavailable Unavailable ISAC WHITTINGTON MD Unavailable Unavailable ISAC WHITTINGTON MD Unavailable Unavailable ISAC WHITTINGTON MD Unavailable Unavailable ISAC WHITTINGTON MD Unavailable Unavailable ISAC WHITTINGTON MD Unavailable Unavailable ISAC WHITTINGTON MD Unavailable Unavailable ISAC WHITTINGTON MD Unavailable Unavailable ISAC WHITTINGTON MD Unavailable Unavailable Onesimo Chaudhari MD Unavailable Unavailable Onesimo Chaudhari MD Unavailable Unavailable Onesimo Chaudhari MD Unavailable Unavailable Onesimo Chaudhari MD Unavailable Unavailable Onesimo Chaudhari MD Unavailable Unavailable Onesimo Chaudhari MD Unavailable Unavailable Onesimo Chaudhari MD Unavailable Unavailable Onesimo Chaudhari MD Unavailable Unavailable Onesimo Chaudhari MD Unavailable Unavailable Onesimo Chaudhari MD Unavailable Unavailable Onesimo Chaudhari MD Unavailable Unavailable Onesimo Chaudhari MD Unavailable Unavailable Onesimo Chaudhari MD Unavailable Unavailable Onesimo Chaudhari MD Unavailable Unavailable Onesimo Chaudhari MD Unavailable Unavailable Onesimo Chaudhari MD Unavailable Unavailable Onesimo Chaudhari MD Unavailable Unavailable Onesimo Chaudhari MD Unavailable Unavailable Onesimo Chaudhari MD Unavailable Unavailable Onesimo Chaudhari MD Unavailable Unavailable Onesimo Chaudhari MD Unavailable Unavailable Onesimo Chaudhari MD Unavailable Unavailable Onesimo Chaudhari MD Unavailable Unavailable Onesimo Chaudhari MD Unavailable Unavailable Onesimo Chaudhari MD Unavailable Unavailable Onesimo Chaudhari MD Unavailable Unavailable Onesimo Chaudhari MD Unavailable Unavailable Onesimo Chaudhari MD Unavailable Unavailable Onesimo Chaudhari MD Unavailable Unavailable Onesimo Chaudhari MD Unavailable Unavailable Onesimo Chaudhari MD Unavailable Unavailable Onesimo Chaudhari MD Unavailable Unavailable Onesimo Chaudhari MD Unavailable Unavailable Onesimo Chaudhari MD Unavailable Unavailable Onesimo Chaudhari MD Unavailable Unavailable Onesimo Chaudhari MD Unavailable Unavailable Onesimo Chaudhari MD Unavailable Unavailable Onesimo Chaudhari MD Unavailable Unavailable Onesimo Chaudhari MD Unavailable Unavailable Beckie URIOSTEGUI MD Unavailable Unavailable Beckie URIOSTEGUI MD Unavailable Unavailable Beckie URIOSTEGUI MD Unavailable Unavailable Beckie URIOSTEGUI MD Unavailable Unavailable Beckie URIOSTEGUI MD Unavailable Unavailable Beckie URIOSTEGUI MD Unavailable Unavailable Beckie URIOSTEGUI MD Unavailable Unavailable Beckie URIOSTEGUI MD Unavailable Unavailable Beckie URIOSTEGUI MD Unavailable Unavailable Beckie URIOSTEGUI MD Unavailable Unavailable ARIF, O OXANA GALARZA Unavailable Unavailable ARIF, O OXANA GALARZA Unavailable Unavailable ARIF, O OXANA GALARZA Unavailable Unavailable ARIF, O OXANA GALARZA Unavailable Unavailable ARIF, O OXANA GALARZA Unavailable Unavailable ARIF, O OXANA GALARZA Unavailable Unavailable ARIF, O OXANA GALARZA Unavailable Unavailable ARIF, O OXANA GALARZA Unavailable Unavailable ARIF, O OXANA GALARZA Unavailable Unavailable ARIF, O OXANA GALARZA Unavailable Unavailable ARIF, O OXANA GALARZA Unavailable Unavailable ARIF, O OXANA GALARZA Unavailable Unavailable ARIF, O OXANA GALARZA Unavailable Unavailable ARIF, O OXANA GALARZA Unavailable Unavailable ARIF, O OXANA GALARZA Unavailable Unavailable ARIF, O OXANA GALARZA Unavailable Unavailable ARIF, O OXANA GALARZA Unavailable Unavailable ARIF, O OXANA GALARZA Unavailable Unavailable ARIF, O OXANA GALARZA Unavailable Unavailable ARIF, O OXANA GALARZA Unavailable Unavailable ARIF, O OXANA GALARZA Unavailable Unavailable ARIF, O OXANA GALARZA Unavailable Unavailable ARIF, O OXANA GALARZA Unavailable Unavailable ARIF, O OXANA GALARZA Unavailable Unavailable ARIF, O OXANA GALARZA Unavailable Unavailable ARIF, O OXANA GALARZA Unavailable Unavailable ARIF, O OXANA GALARZA Unavailable Unavailable ARIF, O OXANA GALARZA Unavailable Unavailable ARIF, O OXANA GALARZA Unavailable Unavailable ARIF, O OXANA GALARZA Unavailable Unavailable ARIF, O OXANA GALARZA Unavailable Unavailable ARIF, O OXANA GALARZA Unavailable Unavailable ARIF, O OXANA GALARZA Unavailable Unavailable ARIF, O OXANA GALARZA Unavailable Unavailable ARIF, O OXANA GALARZA Unavailable Unavailable O'vi, A Taiwo PA Unavailable Unavailable O'vi, A Taiwo PA Unavailable Unavailable O'vi, A Taiwo PA Unavailable Unavailable O'vi, A Taiwo PA Unavailable Unavailable O'vi, A Taiwo PA Unavailable Unavailable O'vi, A Taiwo PA Unavailable Unavailable O'vi, A Taiwo PA Unavailable Unavailable O'vi, A Taiwo PA Unavailable Unavailable O'vi, A Taiwo PA Unavailable Unavailable O'vi, A Taiwo PA Unavailable Unavailable O'vi, A Taiwo PA Unavailable Unavailable O'vi, A Taiwo PA Unavailable Unavailable O'vi, A Taiwo PA Unavailable Unavailable O'vi, A Taiwo PA Unavailable Unavailable O'vi, A Taiwo PA Unavailable Unavailable O'vi, A Taiwo PA Unavailable Unavailable O'vi, A Taiwo PA Unavailable Unavailable O'vi, A Taiwo PA Unavailable Unavailable O'vi, A Taiwo PA Unavailable Unavailable O'vi, A Taiwo PA Unavailable Unavailable O'vi, A Taiwo PA Unavailable Unavailable O'vi, A Taiwo PA Unavailable Unavailable O'vi, A Taiwo PA Unavailable Unavailable O'vi, A Taiwo PA Unavailable Unavailable O'vi, A Taiwo PA Unavailable Unavailable O'vi, A Taiwo PA Unavailable Unavailable O'vi, A Taiwo PA Unavailable Unavailable O'vi, A Taiwo PA Unavailable Unavailable O'vi, A Taiwo PA Unavailable Unavailable O'vi, A Taiwo PA Unavailable Unavailable O'vi, A Taiwo PA Unavailable Unavailable O'vi, A Taiwo PA Unavailable Unavailable Gaby MORA Unavailable Unavailable True, J Iva Unavailable Unavailable True, J Iva Unavailable Unavailable True, J Iva Unavailable Unavailable True, J Iva Unavailable Unavailable True, J Iva Unavailable Unavailable True, J Iva Unavailable Unavailable True, J Iva Unavailable Unavailable True, J Iva Unavailable Unavailable True, J Iva Unavailable Unavailable True, J Iva Unavailable Unavailable True, J Iva Unavailable Unavailable True, J Iva Unavailable Unavailable True, J Iva Unavailable Unavailable True, J Iva Unavailable Unavailable True, J Iva Unavailable Unavailable True, J Iva Unavailable Unavailable True, J Iva Unavailable Unavailable True, J Iva Unavailable Unavailable True, J Iva Unavailable Unavailable True, J Iva Unavailable Unavailable True, J Iva Unavailable Unavailable True, J Iva Unavailable Unavailable True, J Iva Unavailable Unavailable Re-disclosure Warning The records that you are about to access may contain information from federally-assisted alcohol or drug abuse programs. If such information is present, then the following federally mandated warning applies: This information has been disclosed to you from records protected by federal confidentiality rules (42 CFR part 2). The federal rules prohibit you from making any further disclosure of this information unless further disclosure is expressly permitted by the written consent of the person to whom it pertains or as otherwise permitted by 42 CFR part 2. A general authorization for the release of medical or other information is NOT sufficient for this purpose. The Federal rules restrict any use of the information to criminally investigate or prosecute any alcohol or drug abuse patient.The records that you are about to access may contain highly sensitive health information, the redisclosure of which is protected by Article 27-F of the [facility] Public Health law. If you continue you may have access to information: Regarding HIV / AIDS; Provided by facilities licensed or operated by the [facility] Office of Mental Health; or Provided by the [facility] Office for People With Developmental Disabilities. If such information is present, then the following [facility] mandated warning applies: This information has been disclosed to you from confidential records which are protected by state law. State law prohibits you from making any further disclosure of this information without the specific written consent of the person to whom it pertains, or as otherwise permitted by law. Any unauthorized further disclosure in violation of state law may result in a fine or fdc sentence or both. A general authorization for the release of medical or other information is NOT sufficient authorization for further disc losure. Allergies and Adverse Reactions Type Description Substance Reaction Status Data Source(s ) NKA NKA NKA active [facility] ([facility]) Drug Class NO KNOWN ALLERGIES NO KNOWN ALLERGIES [facility] Family History Family Member Name Family Member Gender Family Member Status Date o f Status Description Data Source(s) Unknown Unknown Problem [facility] ([facility]) Unknown Unknown Problem [facility] ([facility]) Unknown Unknown Problem [facility] ([facility]) Unknown Unknown Problem [facility] ([facility]) Encounters Encounter Providers Location Date Indications Data Source(s ) Outpatient Attender: Taiwo ALICEA [facility] 07/11/2020 02:00:00 PM EST [facility] ([facility]) 05/28/2020 01:00:00 AM EDT - 020 10:07:09 AM EDT [facility] ([facility]) Outpatient Attender: Dugra Chaudhari MD 01/18/2020 12:00 :00 AM [facility] Outpatient Referrer: KUSHAL HUBBARD [facility]OL COCHRAN [id number] 0 [facility]: KUSHAL HUBBARD [id number] [facility] 11:54:00 AM EDT [facility] Out[facility] 10/15/2019 03:16:00 PM EST [facility] Outpatient Attender: Iva Melchor [id number] 09/25/2019 12:39:17 P [facility] Outpatient Attender: Taiwo ALICEA [facility] 09/23/2019 10:30:00 [facility] Outpatient Attender: ISAC WHITTINGTON MDA dmitter: BOOGIE PEREZ FIGUEIRAReferrer: KUSHAL HUBBARD [id number] 09/22/2019 08:00:04 AM EST - 09/22/2019 02:15:00 PM EST Malignant neoplasm of pancreas, unspecified [facility] Malignant neoplasm of pancreas, unspecif ied Patient discharged. Outpatient Attender: Oliver DOEeferrer: Jame villalobos MD [id number] 09/22/2019 12:00:00 AM EST - 09/22/2019 09:55:48 AM EST Malignant neoplasm of pancreas, unspecified [facility] Malignant neoplasm of pancreas, unspecif ied Outpatient Attender: ISAC WHITTINGTON MDReferrer: KUSHAL CHAMBERS 09/22/2019 12:00:00 AM EST Malignant neoplasm of pancreas, unspecified [facility] Malignant neoplasm of pancreas, unspecif ied Outpatient Attender: Iva MelchorAdmitter: Iva Melchor 0 [id number] 09/17/2019 12:00:00 AM EST - 09/17/2019 03:35:51 PM EST Encounter for nonprocreative genetic counseling [facility] Encounter for nonprocreative genetic cou nseling Outpatient Attender: Durga Chaudhari MDReferrer: OXANA URIOSTEGUI MD [id number] 09/17/2019 12:00:00 AM EST - 09/17/2019 02:16:27 PM ES T Malignant neoplasm of pancreas, unspecified [facility] Malignant neoplasm of pancreas, unspecif ied Outpatient 09/16/2019 10:14:00 AM EST [facility] Out[facility] 09/11/2019 02:14:00 PM EST [facility] Outpatient 09/11/2019 02:14:00 PM EST [facility] Outpatient Attender: OXANA URIOSTEGUI MDAdmitter: OXANA Ribera MD [id number] 09/10/2019 12:00:00 AM EST - 09/10/2019 12:00:00 AM EST Pancreatic mass [facility] Pancreatic mass Patient discharged. Outpatient Attender: DEFAULT / GENE CLARISSA / UNKNOWN PROVIDER ALIASES Attender: Durga Chaudhari MDReferrer: Taiwo ALICEA [id number] 09/07/2019 12:00:00 AM EST - 09/07/2019 12:37:50 PM EST Other specified diseases of pancreas [facility] Other specified diseases of pancreas Outpatient Attender: Yvonne Jones MDReferrer: OXANA URIOSTEGUI MD 09/07/2019 12:00:00 AM EST [facility] pretest Outpatient 09/03/2019 03:39:00 PM EST [facility] Outpatient Attender: Taiwo ALICEA [facility] 08/25/2019 03:00:00 PM EST [facility] ([facility]) Outpatient Attender: Taiwo ALICEA [facility] 08/11/2019 02:30:00 PM EST [facility] ([facility]) Outpatient Attender: Taiwo ALICEA [facility] 07/14/2019 02:40:00 PM EST [facility] ([facility]) Medications Medication Brand Name Start Date Product Form Dose Route Admi nistrative Instructions Pharmacy Instructions Status Indications Reaction Description Data Source(s) 0.5 mg 08/11/2020 12:00:00 AM EST tablet 60 TAKE ONE TABLET BY MOUTH TWICE A DAY NEEDED FOR NAUSEA, MAXIMUM DAILY DOSE = 2 TABLETS TAKE ONE TABLET BY MOUTH TWICE A DAY NEEDED FOR NAUSEA, MAXIMUM DAILY DOSE = 2 TABLETS SOLD: 08/12/2020 [facility] 10-325 mg 08/11/2020 12:00:00 AM EST tablet 120 TAKE ONE TABLET BY MOUTH EVERY 6 HOURS NEEDED FOR PAIN, MAXIMUM DAILY DOSE = 4 TABLETS TAKE ONE TABLET BY MOUTH EVERY 6 HOURS NEEDED FOR PAIN, MAXIMUM DAILY DOSE = 4 TABLETS SOLD: 08/12/2020 [facility] 40 mg 08/10/2020 12:00:00 AM EST capsule,delayed release (DR/EC) 180 TAKE ONE CAPSULE BY MOUTH TWICE A DAY TAKE ONE CAPSULE BY MOUTH TWICE A DAY SOLD: 08/12/2020 [facility] 0.5 mg 07/12/2020 12:00:00 AM EST tablet 60 TAKE ONE TABLET BY MOUTH TWICE A DAY NEEDED FOR NAUSEA MAXIMUM DAILY DOSE = 2 TABLETS TAKE ONE TABLET BY MOUTH TWICE A DAY NEEDED FOR NAUSEA MAXIMUM DAILY DOSE = 2 TABLETS SOLD: 07/13/2020 [facility] 88 mcg 07/12/2020 12:00:00 AM EST tablet 90 TAKE ONE TABLET BY MOUTH EVERY DAY IN THE MORNING TAKE ONE TABLET BY MOUTH EVERY DAY IN THE MORNING SOLD : 07/13/2020 [facility] Promethazine Hydrochloride 12.5 MG Oral Tablet Promethazine HCL 07/11/2020 12:00:00 AM EST ORAL completed [facility] ([facility]) 10-325 mg 07/11/2020 12:00:00 AM EST tablet 120 TAKE 1 TABLET BY MOUTH EVERY 6 HOURS NEEDED FOR PAIN MAXIMUM DAILY DOSE = 4 TABLETS TAKE 1 TABLET BY MOUTH EVERY 6 HOURS NEEDED FOR PAIN MAXIMUM DAILY DOSE = 4 TABLETS SOLD: 07/13/2020 [facility] Levothyroxine Sodium 0.088 MG Oral Tablet Levothyroxine Sodi um 07/11/2020 12:00:00 AM EST ORAL active M EDENT ([facility]) 0.5 mg 07/01/2020 12:00:00 AM EST tablet 10 TAKE ONE TABLET BY MOUTH EVERY 6 HOURS NEEDED FOR ANXIETY, MAXIMUM DAILY DOSE = 4 TABLETS TAKE ONE TABLET BY MOUTH EVERY 6 HOURS NEEDED FOR ANXIETY, MAXIMUM DAILY DOSE = 4 TABLETS SOLD: 07/08/2020 [facility] 0.5 mg 06/07/2020 12:00:00 AM EDT tablet 20 TAKE ONE TABLET BY MOUTH EVERY 6 HOURS NEEDED FOR ANXIETY, MAXIMUM DAILY DOSE = 4 TABLETS TAKE ONE TABLET BY MOUTH EVERY 6 HOURS NEEDED FOR ANXIETY, MAXIMUM DAILY DOSE = 4 TABLETS SOLD: 06/07/2020 [facility] Senna 8.6 MG Senna 06/03/2020 01:00:00 AM EDT comp leted [facility] ([facility]) Lovenox 40 MG/0.4ML Lovenox 05/30/2020 01:00:00 AM EDT completed [facility] [place] ) oxyCODONE HCl 5 MG oxyCODONE HCl 05/28/2020 01:00:00 AM EDT completed NETSMART ([facility]) MiraLax 17 GM MiraLax 05/28/2020 01:00:00 AM EDT c ompleted NETSMART ([facility]) Omeprazole 40 MG Omeprazole 05/28/2020 01:00:00 AM EDT completed NETSMART ([facility] ) Ondansetron HCl 4 MG Ondansetron HCl 05/28/2020 01:00:00 AM EDT completed NETSMART ([facility]) Loperamide HCl 2 MG Loperamide HCl 05/28/2020 01:00:00 AM EDT completed NETSMART ([facility]) Levothyroxine Sodium 75 MCG Levothyroxine Sodium 05/28/2020 01:00:00 AM EDT completed NETSMART ( [facility]) Gabapentin 100 MG Gabapentin 05/28/2020 01:00:00 AM EDT completed NETSMART ([facility] ) Furosemide 20 MG Furosemide 05/28/2020 01:00:00 AM EDT completed NETSMART ([facility] ) Docusate Sodium 100 MG Docusate Sodium 05/28/2020 01:00:00 AM EDT completed NETSMART ([facility]) Diclofenac Sodium 1 % Diclofenac Sodium 05/28/2020 01:00:00 AM EDT completed NETSMART ([facility]) Aspirin 325 MG Aspirin 05/28/2020 01:00:00 AM EDT completed NETSMART ([facility]) Acetaminophen 500 MG Acetaminophen 05/28/2020 01:00:00 AM EDT 2.0 {tablet} completed NETSMART ([facility]) Pancrelipase (Gnv-Besm-Tnps) 01970 UNIT Pancrelipase (Lip-Pr ot-Amyl) 05/28/2020 01:00:00 AM EDT completed NETSMART ([facility]) Sucralfate 1 GM Sucralfate 05/28/2020 01:00:00 AM EDT completed NETSMART ([facility]) Lidocaine-Prilocaine 2.5-2.5 % Lidocaine-Prilocaine 05/28/2020 0 1:00:00 AM EDT completed NETSMA RT ([facility]) Prochlorperazine Maleate 10 MG Prochlorperazine Maleate 05/12 01:00:00 AM EDT completed NETSMAR T ([facility]) Simethicone 180 MG Simethicone 05/28/2020 01:00:00 AM EDT completed NETSMART ([facility]) Senna 8.6 MG Senna 05/28/2020 01:00:00 AM EDT 2.0 {tablet} completed NETSMART ([facility]) Spironolactone 25 MG Spironolactone 05/28/2020 01:00:00 AM EDT completed NETSMART ([facility]) 10-325 mg 05/03/2020 12:00:00 AM EDT tablet 120 TAKE 1 TABLET BY MOUTH EVERY 6 HOURS NEEDED FOR PAIN MAXIMUM DAILY DOSE = 4 TABLETS TAKE 1 TABLET BY MOUTH EVERY 6 HOURS NEEDED FOR PAIN MAXIMUM DAILY DOSE = 4 TABLETS SOLD: 05/08/2020 [facility] 1 gram 04/29/2020 12:00:00 AM EDT tablet 180 TAKE 1 TABLET BY MOUTH EVERY 12 HOURS TAKE 1 TABLET BY MOUTH EVERY 12 HOURS SOLD: 05/08/2020 [facility] 0.5 mg 04/15/2020 12:00:00 AM EDT tablet 30 TAKE ONE TABLET BY MOUTH EVERY 6 HOURS NEEDED FOR NAUSEA UNCONTROLLED BY ZOFRAN OR COMPAZINE MAXIMUM DAILY DOSE = 4 TAKE ONE TABLET BY MOUTH EVERY 6 HOURS A S NEEDED FOR NAUSEA UNCONTROLLED BY ZOFRAN OR COMPAZINE MAXIMUM DAILY DOSE = 4 SOLD: 04/15/2020 [facility] 10-325 mg 04/02/2020 12:00:00 AM EDT tablet 120 TAKE 1 TABLET BY MOUTH EVERY 6 HOURS NEEDED FOR PAIN MAXIMUM DAILY DOSE = 4 TABLETS TAKE 1 TABLET BY MOUTH EVERY 6 HOURS NEEDED FOR PAIN MAXIMUM DAILY DOSE = 4 TABLETS SOLD: 04/04/2020 [facility] 0.5 mg 03/08/2020 12:00:00 AM EDT tablet 60 TAKE 1 TABLET BY MOUTH EVERY 6 HOURS NEEDED MAXIMUM DAILY DOSE = 4 TABLETS TAKE 1 TABLET BY MOUTH EVERY 6 HOURS NEEDED MAXIMUM DAILY DOSE = 4 TABLETS SOLD: 04/04/2020 [facility] 20 mEq 03/08/2020 12:00:00 AM EDT tablet extended release 5 TAKE ONE TABLET BY MOUTH EVERY DAY FOR 5 DAYS TAKE ONE TABLET BY MOUTH EVERY DAY FOR 5 DAYS SOLD: 03/08/2020 [facility] 40 mg 03/02/2020 12:00:00 AM EDT capsule,delayed release (DR/EC) 180 TAKE ONE CAPSULE BY MOUTH TWICE A DAY TAKE ONE CAPSULE BY MOUTH TWICE A DAY SOLD: 03/04/2020 [facility] 10-325 mg 03/02/2020 12:00:00 AM EDT tablet 120 TAKE ONE TABLET BY MOUTH EVERY 6 HOURS NEEDED FOR PAIN MAXIMUM DAILY DOSE = 4 TABLETS TAKE ONE TABLET BY MOUTH EVERY 6 HOURS NEEDED FOR PAIN MAXIMUM DAILY DOSE = 4 TABLETS SOLD: 03/04/2020 [facility] 10 mEq 02/02/2020 12:00:00 AM EDT capsule, extended relea se 21 TAKE THREE CAPSULES BY MOUTH EVERY DAY FOR 7 DAYS TAKE THREE CAPSULES BY MOUTH EVERY DAY FOR 7 DAYS SOLD: 02/10/2020 [facility] 0.5 mg 02/02/2020 12:00:00 AM EDT tablet 30 TAKE ONE TABLET BY MOUTH EVERY 6 HOURS NEEDED FOR NAUSEA MAXIMUM DAILY DOSE = 4 TABLETS TAKE ONE TABLET BY MOUTH EVERY 6 HOURS NEEDED FOR NAUSEA MAXIMUM DAILY DOSE = 4 TABLETS SOLD: 02/10/2020 [facility] 10-325 mg 01/28/2020 12:00:00 AM EDT tablet 120 TAKE ONE TABLET BY MOUTH EVERY 6 HOURS NEEDED FOR PAIN MAXIMUM DAILY DOSE = 4 TAKE ONE TABLET BY MOUTH EVERY 6 HOURS NEEDED FOR PAIN MAXIMUM DAILY DOSE = 4 SOLD: 01/29/2020 [facility] 40 mg 12/29/2019 12:00:00 AM EDT capsule,delayed release (DR/EC) 60 TAKE ONE CAPSULE BY MOUTH TWICE A DAY TAKE ONE CAPSULE BY MOUTH TWICE A DAY SOLD: 06/07/2020 [facility] 10-325 mg 12/29/2019 12:00:00 AM EDT tablet 120 TAKE ONE TABLET BY MOUTH EVERY 6 HOURS NEEDED FOR PAIN MAXIMUM DAILY DOSE = 4 TAKE ONE TABLET BY MOUTH EVERY 6 HOURS NEEDED FOR PAIN MAXIMUM DAILY DOSE = 4 SOLD: 12/29/2019 [facility] 10 mg 12/29/2019 12:00:00 AM EDT tablet 60 TAKE 1 TABLET BY MOUTH EVERY 6 TO 8 HOURS NEEDED FOR NAUSEA OR VOMITING DESPITE ONDANSETRON TAKE 1 TABLET BY MOUTH EVERY 6 TO 8 HOURS NEEDED FOR NAUSEA OR VOMITING DESPITE ONDANSETRON SOLD: 12/29/2019 [facility] 40 mg 12/29/2019 12:00:00 AM EDT capsule,delayed release (DR/EC) 60 TAKE ONE CAPSULE BY MOUTH TWICE A DAY TAKE ONE CAPSULE BY MOUTH TWICE A DAY SOLD: 12/29/2019 [facility] 40 mg 12/29/2019 12:00:00 AM EDT capsule,delayed release (DR/EC) 60 TAKE ONE CAPSULE BY MOUTH TWICE A DAY TAKE ONE CAPSULE BY MOUTH TWICE A DAY SOLD: 01/30/2020 [facility] 0.5 mg 12/29/2019 12:00:00 AM EDT tablet 30 TAKE 1 TABLET BY MOUTH EVERY 6 HOURS NEEDED FOR NAUSEA UNCONTROLLED BY ZOFRAN OR COMPAZINE MAXIMUM DAILY DOSE = 4 TABLETS TAKE 1 TABLET BY MOUTH EVERY 6 HOURS NEEDED FOR NAUSEA UNCONTROLLED BY ZOFRAN OR COMPAZINE MAXIMUM DAILY DOSE = 4 TABLETS SOLD: 12/29/2019 [facility] 30 mg 12/28/2019 12:00:00 AM EDT tablet 90 TAKE ONE TABLET BY MOUTH EVERY DAY TAKE ONE TABLET BY MOUTH EVERY DAY SOLD: 12/29/2019 [facility] 20 mEq 12/07/2019 12:00:00 AM EDT tablet extended release 28 TAKE TWO TABLETS BY MOUTH EVERY DAY FOR HYPOKALEMIA TAKE TWO TABLETS BY MOUTH EVERY DAY FOR HYPOKALEMIA SOLD: 12/07/2019 [facility] 20 mEq 12/07/2019 12:00:00 AM EDT tablet extended release 28 TAKE TWO TABLETS BY MOUTH EVERY DAY FOR HYPOKALEMIA TAKE TWO TABLETS BY MOUTH EVERY DAY FOR HYPOKALEMIA SOLD: 12/29/2019 [facility] 0.5 mg 12/07/2019 12:00:00 AM EDT tablet 30 TAKE ONE TABLET BY MOUTH EVERY 6 HOURS NEEDED FOR NAUSEA UNCONTROLLED BY ZOFRAN OR COMPAZINE, MAXIMUM DAILY DOSE = 4 TABLETS TAKE ONE TABLET BY MOUTH EVERY 6 HOURS A S NEEDED FOR NAUSEA UNCONTROLLED BY ZOFRAN OR COMPAZINE, MAXIMUM DAILY DOSE = 4 TABLETS SOLD: 12/07/2019 [facility] Potassium Chloride 20 MEQ Extended Release Oral Tablet Potas sium Chloride ER 12/04/2019 12:00:00 AM EDT ORAL active MEDENT ([facility]) 20 mEq 12/04/2019 12:00:00 AM EDT tablet,ER particles/cry stals 14 TAKE TWO TABLETS BY MOUTH EVERY DAY FOR 3 DAYS TAKE TWO TABLETS BY MOUTH EVERY DAY FOR 3 DAYS SOLD: 12/04/2019 [facility] 20 mg 12/04/2019 12:00:00 AM EDT tablet 90 TAKE ONE TABLET BY MOUTH EVERY DAY TAKE ONE TABLET BY MOUTH EVERY DAY SOLD: 12/07/2019 [facility] Furosemide 20 MG Oral Tablet Furosemide 12/03/2019 12:00:00 AM EDT ORAL active MEDENT ([facility]) 10-325 mg 11/30/2019 12:00:00 AM EDT tablet 120 TAKE ONE TABLET BY MOUTH EVERY 6 HOURS NEEDED FOR PAIN MAXIMUM DAILY DOSE = 4 TAKE ONE TABLET BY MOUTH EVERY 6 HOURS NEEDED FOR PAIN MAXIMUM DAILY DOSE = 4 SOLD: 11/30/2019 [facility] 2.5-0.025 mg 11/23/2019 12:00:00 AM EDT tablet 30 TAKE 1 TABLET BY MOUTH EVERY 6 HOURS NEEDED FOR DIARRHEA MAXIMUM DAILY DOSE = 4 TABLETS TAKE 1 TABLET BY MOUTH EVERY 6 HOURS NEEDED FOR DIARRHEA MAXIMUM DAILY DOSE = 4 TABLETS SOLD: 11/23/2019 [facility] 0.5 mg 11/19/2019 12:00:00 AM EDT tablet 60 TAKE ONE TABLET BY MOUTH TWICE A DAY NEEDED FOR NAUSEA , ANXIETY, OR INSOMNIA MAXIMUM DAILY DOSE = 2 TAKE ONE TABLET BY MOUTH TWICE A DAY NEEDED FOR NAUSEA , ANXIETY, OR INSOMNIA MAXIMUM DAILY DOSE = 2 SOLD: 11/20/2019 [facility] 2.5-2.5 % 11/04/2019 12:00:00 AM EDT cream 30 APPLY DIME-SIZE AMOUNT TO PORT AREA DIRECTED, DO NOT RUB IN, COVER WITH SARAN WRAP TO PROTECT CLOTHING APPLY DIME-SIZE AMOUNT TO PORT AREA DIRECTED, DO NOT RUB IN, COVER WITH SARAN WRAP TO PROTECT CLOTHING SOLD: 11/05/2019 [facility] 500 mg 11/03/2019 12:00:00 AM EDT capsule 21 TAKE ONE CAPSULE BY MOUTH THREE TIMES A DAY TAKE ONE CAPSULE BY MOUTH THREE TIMES A DAY SOLD: 11/03/2019 [facility] 100 mg 11/01/2019 12:00:00 AM EDT capsule 20 TAKE ONE CAPSULE BY MOUTH TWICE A DAY TAKE ONE CAPSULE BY MOUTH TWICE A DAY SOLD: 11/02/2019 [facility] 10-325 mg 10/30/2019 12:00:00 AM EDT tablet 120 TAKE ONE TABLET BY MOUTH EVERY 6 HOURS NEEDED FOR PAIN MAXIMUM DAILY DOSE = 4 TAKE ONE TABLET BY MOUTH EVERY 6 HOURS NEEDED FOR PAIN MAXIMUM DAILY DOSE = 4 SOLD: 10/30/2019 [facility] 10 mg 10/21/2019 12:00:00 AM EDT tablet 60 TAKE 1 TABLET BY MOUTH EVERY 6 TO 8 HOURS NEEDED NAUSEA/ VOMITING DESPITE ONDANSETRON TAKE 1 TABLET BY MOUTH EVERY 6 TO 8 HOURS NEEDED NAUSEA/ VOMITING DESPITE ONDANSETRON SOLD: 10/23/2019 [facility] 1 gram 10/18/2019 12:00:00 AM EST tablet 120 TAKE ONE TABLET BY MOUTH TWO TIMES A DAY TAKE ONE TABLET BY MOUTH TWO TIMES A DAY SOLD: 12/29/2019 [facility] 1 gram 10/18/2019 12:00:00 AM EST tablet 120 TAKE ONE TABLET BY MOUTH TWO TIMES A DAY TAKE ONE TABLET BY MOUTH TWO TIMES A DAY SOLD: 10/18/2019 [facility] 40 mg 10/18/2019 12:00:00 AM EST capsule,delayed release (DR/EC) 60 TAKE ONE CAPSULE BY MOUTH TWO TIMES A DAY TAKE ONE CAPSULE BY MOUTH TWO TIMES A DAY SOLD: 11/28/2019 [facility] 40 mg 10/18/2019 12:00:00 AM EST capsule,delayed release (DR/EC) 60 TAKE ONE CAPSULE BY MOUTH TWO TIMES A DAY TAKE ONE CAPSULE BY MOUTH TWO TIMES A DAY SOLD: 10/18/2019 [facility] 10-325 mg 09/30/2019 12:00:00 AM EST tablet 120 TAKE ONE TABLET BY MOUTH EVERY 6 HOURS NEEDED FOR PAIN MAXIMUM DAILY DOSE = 4 TABLETS TAKE ONE TABLET BY MOUTH EVERY 6 HOURS NEEDED FOR PAIN MAXIMUM DAILY DOSE = 4 TABLETS SOLD: 10/01/2019 [facility] 10 mg 09/29/2019 12:00:00 AM EST tablet 60 TAKE ONE TABLET BY MOUTH EVERY 6 HOURS NEEDED FOR NAUSEA MAXIMUM DAILY DOSE = 4 TAKE ONE TABLET BY MOUTH EVERY 6 HOURS NEEDED FOR NAUSEA MAXIMUM DAILY DOSE = 4 SOLD: 10/01/2019 [facility] 0.5 mg 09/29/2019 12:00:00 AM EST tablet 30 TAKE 1TABLET BY MOUTH NEEDED EVERY 6 HOURS FOR NAUSEA UNCONTROLLED BY ZOFRAN OR COMPAZINE MAXIMUM DAILY DOSE = 4 TAKE 1TABLET BY MOUTH NEEDED EVERY 6 HOURS FOR NAUSEA UNCONTROLLED BY ZOFRAN OR COMPAZINE MAXIMUM DAILY DOSE = 4 SOLD: 10/01/2019 [facility] Escitalopram 10 MG Oral Tablet ESCITALOPRAM OXALATE 09/23/2019 1 2:00:00 AM EST tablet 90 TAKE ONE TABLET BY MOUTH EVERY M ORNING TAKE ONE TABLET BY MOUTH EVERY MORNING SOLD: 09/23/2019 [facility] Escitalopram 10 MG Oral Tablet Escitalopram Oxalate 09/23/2019 1 2:00:00 AM EST ORAL active MEDENT ( [facility]) sodium chloride (preservative free) 0.9 % flush 3 mL 09/22/2019 05:00:00 PM EST 3 mL Intravenous active [Ord er 1 Start] Name: Peripheral IV Signed Summary: Routine, CONTINUOUS, Starting Sat09/22/19 at 1007, Until Sat09/23/19, For 1 day
Upon admission through end of procedure., Pre-op [Order 1 End] [ Order 2 Start] Name: sodium chloride (preservative free) 0.9 % flush 3 mL Signed Summary: 3 mL, Intravenous, Every 8 hours Standard (3 times per day), First dose on Sat09/22/19 at 1700, For 30 days, Pre-op
[facility]. Flush Q8H and after each use to Sal[facility].
[Order 2 End] [Order 3 Start] Name: sodium chloride (preservative free) 0.9 % flush 3 mL Signed Summary: 3 mL, Intravenous, PRN, Line Care, Starting Sat09/22/19 at 1006, For 30 days, Pre-op
[facility]. Flush Q8H and after each use to Sal[facility] Lock.
[Order 3 End] [Order 4 Start] Name: Saline Lock order Signed Summary: Routine, ONCE, Sat09/22/19 at 1007, For 1 occurrence
Pre-op [Order 4 End] [Order 5 Start] Name: NaCl infusion 0.9 % Signed Summary: at 0.2-10 mL/hr, Intravenous, PRN, For Meds, Starting Sat09/22/19 at 1006, For 30 days, Pre-op [Order 5 End] [Order 6 Start] Name: dextrose 5 % infusion Signed Summary: at 0.2-10 mL/hr, Intravenous, PRN, For Meds, Starting Sat09/22/19 at 1006, For 30 days, Pre-op [Order 6 End] [facility] Medication administered onsite lidocaine (XYLOCAINE) 2 % injection [id number] 09/22/2019 12:35:00 PM EST completed Code/Trauma Medicati on, Starting Sat09/22/19 at [facility] Medication administered onsite fentaNYL (SUBLIMAZE) (PF) injection [id number] 09/22/2019 12:34:57 PM EST completed Code/Trauma Medicati on, Starting Sat09/22/19 at [facility] Medication administered onsite 2 ML Midazolam 1 MG/ML Injection midazolam (PF) (VERSE D) injection midazolam (PF) (VERSED) injection 09/22/2019 12:34:00 PM EST completed Code/Trauma Medication, Starting Sat09/22/19 at [facility] Medication administered onsite Cefazolin 1000 MG Injection ceFAZolin (ANCEF) IVPB 1 g in dextrose 5 % (premix) ceFAZolin (ANCEF) IVPB 1 g in dextrose 5 % (premix) 09/22/2019 10:15:00 AM EST 1 g Intravenous completed 1 g, Intra venous, Administer over 30 Minutes, Once, Sat09/22/19 at 1015, For 1 dose, Pre-op [facility] Medication administered onsite iohexol (OMNIPAQUE) 300 MG/ML contrast injection 50 mL [id number] 2 09/22/2019 08:30:00 AM EST 50 mL Given by IV completed 50 mL, Given by IV, 1 TIME IMAGING, Sat09/22/19 at 0830, For 1 dose [facility] Medication administered onsite 36,000-114,000- 180,000 unit 09/18/2019 12:00:00 AM EST capsule,delayed release(DR/EC) 400 TAKE 2 CAPSULES 3 TI MES A DAY WITH MEALS AND 1 WITH SNACKS - WITH FIRST BITE OF FOOD TAKE 2 CAPSULES 3 TIMES A DAY WITH MEALS AND 1 WITH SNACKS - WITH FIRST BITE OF FOOD SOLD: 09/19/2019 [facility] 36,000-114,000- 180,000 unit 09/18/2019 12:00:00 AM EST capsule,delayed release(DR/EC) 400 TAKE 2 CAPSULES 3 TI MES A DAY WITH MEALS AND 1 WITH SNACKS - WITH FIRST BITE OF FOOD TAKE 2 CAPSULES 3 TIMES A DAY WITH MEALS AND 1 WITH SNACKS - WITH FIRST BITE OF FOOD SOLD: 06/07/2020 [facility] Amylases 793418 UNT / Endopeptidases 114 000 UNT / Lipase 63646 UNT Delayed Release Oral Capsule Pancrelipase (Vfj-Cwjf-Sgcw) 81322 UNIT Oral Capsule Delayed Release Particles (CREON) Pancrelipase (Kfb-Glxc-Pgeh) 57502 UNIT Oral Capsule Delayed Release Particles (CREON) 09/17/2019 12:00:00 AM EST Oral active Adenocarcinoma of pancreas Take 2 capsules by mouth Three times daily with meals. May also take 1 capsule with snacks. Take with first bite of food. [facility] Adenocarcinoma of pancreas 4 mg 09/11/2019 12:00:00 AM EST tablet,disintegrating 3 0 DISSOLVE ONE TABLET UNDER TONGUE EVERY 4 HOURS FOR NAUSEA DISSOLVE ONE TABLET UNDER TONGUE EVERY 4 HOURS FOR NAUSEA SOLD: 09/11/2019 [facility] sodium chloride (preservative free) 0.9 % flush 3 mL 09/10/2019 05:00:00 PM EST 3 mL Intravenous active [Ord er 1 Start] Name: Peripheral IV Signed Summary: Routine, CONTINUOUS, Starting [facility] 09/10/19 at 1411, Until 10/10/19, For 30 days
Pre-op [Order 1 End] [Order 2 Start] Name: sodium chloride (pr eservative free) 0.9 % flush 3 mL Signed Summary: 3 mL, Intravenous, Every 8 hours Standard (3 times per day), First dose on [facility] 09/10/19 at 1700, For 30 days, Pre-op
Saline Lock. Flush Q8H and after each use to Saline Lock.
[Order 2 End] [Order 3 Start] Name: sodium chloride (preservative free) 0.9 % flush 3 mL Signed Summary: 3 mL, Intravenous, Continuous PRN, Line Care, Starting [facility] 09/10/19 at 1410, For 30 days, Pre-op
Saline [facility]. Flush Q8H and after each use to Saline Lock.
[Order 3 End] [Order 4 Start] Name: Saline Lock order Signed Summary: Routine, ONCE, [facility] 09/10/19 at 1411, For 1 occurrence
Pre-op [Order 4 End] [Order 5 Start] Name: NaCl infusion 0.9 % Signed Summary: at 0.2-10 mL/hr, Intravenous, PRN, For Meds, Starting [facility] 09/10/19 at 1410, For 30 days, Pre-op [Order 5 End] [Order 6 Start] Name: dextrose 5 % infusion Signed Summary: at 0.2-10 mL/hr, Intravenous, PRN, For Meds, Starting [facility] 09/10/19 at 1410, For 30 days, Pre-op [Order 6 End] [facility] Medication administered onsite sodium chloride (preservative free) 0.9 % flush 10 mL [id number] 186-00 09/10/2019 02:10:43 PM EST 10 mL Intravenous active 10 mL, Intravenous, Continuous PRN, Line Care, Starting [facility] 09/10/19 at 1410, For 30 days, Pre- op
Verify blood return before use.For deaccessing: flush with 10 mL Sodium Chloride 0.9 % followed by 5 mL Heparin 100 units/mL.Flush per CM C- 34C Central Line Policy for Infusaport.
[facility] Medication administered onsite 1 ML heparin sodium, porcine 100 UNT/ML Injection heparin flush (porcine) 100 UNIT/ML injection 500 Units heparin flush (porcine) 100 UNIT/ML inje ction 500 Units 09/10/2019 02:10:43 PM EST 500 U Intravenous active 500 Units, Intravenous, Continuous PRN, Line Care, Starting [facility] 09/10/19 at 1410, For 30 days, Pre-op
Verify blood return before use.For deaccessing: flush with 10 mL Sodium Chloride 0.9 % followed by 5 mL Heparin 100 units/mL.Flush per CM C-34C Central Line Policy for Infusaport.
[facility] Medication administered onsite sodium chloride (preservative free) 0.9 % flush 10 mL [id number] 186-00 09/10/2019 02:10:43 PM EST 10 mL Intravenous active 10 mL, Intravenous, Continuous PRN, Line Care, Starting [facility] 09/10/19 at 1410, For 30 days, Pre- op
Verify blood return before use.For intermittent access: flush with 10 mL Sodium Chloride 0.9 % followed by 5 mL Heparin 10 units/mL.Flush per CM C-34C Central Line Policy for Infusaport.
[facility] Medication administered onsite 1 ML heparin sodium, porcine 10 UNT/ML I njection heparin lock flush 10 UNIT/ML injection 50 Units heparin lock flush 10 UNIT/ML injection 50 Units 09/10 02:10:43 PM EST 50 U Intravenous active 50 Units, Intravenous, Continuous PRN, Line Care, Starting [facility] 09/10/19 at 1410, For 30 days, Pre- op
Verify blood return before use.For intermittent access: flush with 10 mL Sodium Chloride 0.9 % followed by 5 mL Heparin 10 units/mL.Flush per CM C-34C Central Line Policy for Infusaport.
[facility] Medication administered onsite 6,000-19,000 -30,000 unit 09/08/2019 12:00:00 AM EST capsule,delayed release(DR/EC) 180 TAKE TWO CAPSULES BY MOUTH THREE TIMES A DAY WITH FOOD TAKE TWO CAPSULES BY MOUTH THREE TIMES A DAY WITH FOOD SOLD: 09/08/2019 [facility] Amylases 54717 UNT / Endopeptidases 1900 0 UNT / Lipase 6000 UNT Delayed Release Oral Capsule Pancrelipase (Ctm-Wguz-Dkxl) 6000 UNIT Oral Capsule Delayed Release Particles (CREON) Pancrelipase (Tzn-Zfcv-Rglu) 6000 UNIT O ral Capsule Delayed Release Particles (CREON) 09/07/2019 12:00:00 AM EST Oral active Take 2 capsules by mouth Three times daily with meals [facility] Ultrasound Guided Biopsy Of Pancreatic Head Mass. 09/01/2019 12:00:00 AM EST completed MEDENT ([facility]) 10-325 mg 08/31/2019 12:00:00 AM EST tablet 120 TAKE ONE TABLET BY MOUTH EVERY 6 HOURS NEEDED FOR PAIN, MAXIMUM DAILY DOSE = 4 TAKE ONE TABLET BY MOUTH EVERY 6 HOURS NEEDED FOR PAIN, MAXIMUM DAILY DOSE = 4 SOLD: 08/31/2019 [facility] Acetaminophen 325 MG / Hydrocodone Bitartrate 10 MG Or al Tablet Hydrocodone-Acetaminophen 08/31/2019 12:00:00 AM EST ORAL active MEDENT ([facility]) Acetaminophen 325 MG / Hydrocodone [place] trate 10 MG Oral Tablet HYDROcodone- Acetaminophen 10-325 MG Oral Tablet (VICODIN) HYDROcodone-Acetaminophen 10-325 MG Oral Tablet (VICODIN) 08/31/2019 12:00:00 AM EST active every 6 (six) hours as needed [facility] Acetaminophen 325 MG / Hydrocodone Bitartrate 7.5 MG O ral Tablet Hydrocodone-Acetaminophen 08/26/2019 12:00:00 AM EST ORAL completed [facility] ([facility]) Acetaminophen 325 MG / Hydrocodone [place] trate 7.5 MG Oral Tablet HYDROcodone- Acetaminophen 7.5-325 MG Oral Tablet (NORCO) HYDROcodone-Acetaminophen 7.5-325 MG Oral Tablet (NORCO) 08/26/2019 12:00:00 AM EST 1 {tbl} Oral aborted Take 1 tablet by mouth every 6 (six) hours as needed for Pain [facility] 7.5-325 mg 08/26/2019 12:00:00 AM EST tablet 28 TAKE ONE TABLET BY MOUTH EVERY 6 HOURS NEEDED FOR PAIN, MAXIMUM DAILY DOSE = 4 TABLETS TAKE ONE TABLET BY MOUTH EVERY 6 HOURS NEEDED FOR PAIN, MAXIMUM DAILY DOSE = 4 TABLETS SOLD: 08/26/2019 [facility] Ondansetron 4 MG Disintegrating Oral Tablet Ondansetron 08/25/2019 12:00:00 AM EST SUBLINGUAL active MEDENT ([facility]) Acetaminophen 300 MG / Hydrocodone Bitartrate 7.5 MG O ral Tablet Hydrocodone Bitartrate/Acetaminophen 08/25/2019 12:00:00 AM EST ORAL completed MED[facility] ([facility]) Ondansetron 4 MG Disintegrating Oral Tab let Ondansetron 4 MG Oral Tablet Disintegrating (ZOFRAN-ODT) Ondansetron 4 MG Oral Tablet Disintegrat ing (ZOFRAN-ODT) 08/23/2019 12:00:00 AM EST 1 {tbl} Oral acti ve Take 1 tablet by mouth every 4 (four) hours as needed for Nausea [facility] 4 mg 08/23/2019 12:00:00 AM EST tablet,disintegrating 1 6 DISSOLVE ONE TABLET UNDER THE TONGUE EVERY 6 TO 8 HOURS NEEDED FOR NAUSEA AND VOMITING DISSOLVE ONE TABLET UNDER THE TONGUE EVERY 6 TO 8 HOURS NEEDED FOR NAUSEA AND VOMITING SOLD: 08/25/2019 [facility] 75 mcg 08/18/2019 12:00:00 AM EST tablet 30 TAKE ONE TABLET BY MOUTH EVERY MORNING TAKE ONE TABLET BY MOUTH EVERY MORNING SOLD: 10/06/2019 [facility] Levothyroxine Sodium 0.075 MG Oral Table t Levothyroxine Sodium 75 MCG Oral Tablet (SYNTHROID, LEVOTHROID) Levothyroxine Sodium 75 MCG Oral Tablet (SYNTHROID, LEVOTHROID) 08/18/2019 12:00:00 AM EST 1 {tbl} Oral active Take 1 tablet by mouth every morning [facility] 75 mcg 08/18/2019 12:00:00 AM EST tablet 30 TAKE ONE TABLET BY MOUTH EVERY MORNING TAKE ONE TABLET BY MOUTH EVERY MORNING SOLD: 11/28/2019 [facility] 75 mcg 08/18/2019 12:00:00 AM EST tablet 30 TAKE ONE TABLET BY MOUTH EVERY MORNING TAKE ONE TABLET BY MOUTH EVERY MORNING SOLD: 02/28/2020 [facility] 75 mcg 08/18/2019 12:00:00 AM EST tablet 30 TAKE ONE TABLET BY MOUTH EVERY MORNING TAKE ONE TABLET BY MOUTH EVERY MORNING SOLD: 06/07/2020 [facility] 75 mcg 08/18/2019 12:00:00 AM EST tablet 30 TAKE ONE TABLET BY MOUTH EVERY MORNING TAKE ONE TABLET BY MOUTH EVERY MORNING SOLD: 08/21/2019 [facility] 75 mcg 08/18/2019 12:00:00 AM EST tablet 30 TAKE ONE TABLET BY MOUTH EVERY MORNING TAKE ONE TABLET BY MOUTH EVERY MORNING SOLD: 12/29/2019 [facility] 10 mg 08/12/2019 12:00:00 AM EST tablet 90 TAKE ONE TABLET BY MOUTH EVERY DAY TAKE ONE TABLET BY MOUTH EVERY DAY SOLD: 08/14/2019 [facility] 30 mg 08/12/2019 12:00:00 AM EST tablet 90 TAKE ONE TABLET BY MOUTH EVERY DAY TAKE ONE TABLET BY MOUTH EVERY DAY SOLD: 08/14/2019 [facility] Lisinopril 30 MG Oral Tablet Lisinopril 30 MG Oral Tab let (PRINIVIL,ZESTRIL) Lisinopril 30 MG Oral Tablet (PRINIVIL,ZESTRIL) 08/11/2019 12:00:00 AM EST 1 {tbl} Oral active Take 1 tablet by mouth n [facility] Amlodipine 10 MG Oral Tablet amLODIPine Besylate 10 MG Oral Tablet (NORVASC) amLODIPine Besylate 10 MG Oral Tablet (NORVASC) 08/11/2019 12:00:00 AM EST 1 {tbl} Oral active Take 1 tablet by mouth e [facility] Amlodipine 10 MG Oral Tablet Amlodipine Besylate 08/11/2019 12:00:00 AM EST ORAL completed [facility]ENT ([facility]) Lisinopril 30 MG Oral Tablet Lisinopril 08/11/2019 12:00:00 AM EST ORAL active MEDENT ([facility]) Lisinopril 20 MG Oral Tablet Lisinopril 20 MG Oral Tab let (PRINIVIL,ZESTRIL) Lisinopril 20 MG Oral Tablet (PRINIVIL,ZESTRIL) 07/18/2019 12:00:00 AM EST 1 {tbl} Oral aborted Take 1 tablet [facility] mouth [facility] [facility] 5 mg 07/15/2019 12:00:00 AM EST tablet 90 TAKE ONE TABLET BY MOUTH EVERY DAY TAKE ONE TABLET BY MOUTH EVERY DAY SOLD: 07/15/2019 tabulate Blood Pressure Monitor Digital/Auto-Inflation 2018 12:00:00 AM EST active [facility] ([facility]) Amlodipine 5 MG Oral Tablet Amlodipine Besylate 07/14/2019 12:00:00 A M EST ORAL completed [facility] ([facility]) 20 mg 06/23/2019 12:00:00 AM EST tablet 90 TAKE ONE TABLET BY MOUTH EVERY EVENING TAKE ONE TABLET BY MOUTH EVERY EVENING SOLD: 10/06/2019 [facility] 20 mg 06/01/2019 12:00:00 AM EDT capsule,delayed release (DR/EC) 90 TAKE ONE CAPSULE BY MOUTH EVERY DAY TAKE ONE CAPSULE BY MOUTH EVERY DAY SOLD: 09/06/2019 [facility] 20 mg 2019 12:00:00 AM EDT tablet 30 TAKE ONE TABLET BY MOUTH EVERY DAY TAKE ONE TABLET BY MOUTH EVERY DAY SOLD: 07/21/2019 [facility] 75 mcg 01/13/2019 12:00:00 AM EDT tablet 30 TAKE ONE TABLET BY MOUTH EVERY MORNING TAKE ONE TABLET BY MOUTH EVERY MORNING SOLD: 07/21/2019 [facility] Oseltamivir 75 MG Oral Capsule Oseltamiv ir Phosphate 75 MG Oral Capsule (TAMIFLU) Oseltamivir Phosphate 75 MG Oral Capsule (TAMIFLU) 02/2019 12:00:00 AM EST aborted [facility] Insurance Providers Payer name Policy type / Coverage type Policy ID Covered democrat ID Covered democrat's relationship to farr Policy Farr Plan Information [facility]MR [facility] [id number] SP [id number] MEDICARE [id number] SP [id number] UMR O [id number] S [id number] MEDICARE C [id number] S [id number] UMR U [id number] Self [id number] MEDICARE A [id number] Self [id number] [place]MET[place] GBA C [id number] S [id number] UMR [facility] [id number] SP [id number] Umr/Uhc/[employer] Medigap Part B [id number] Self [id number] Medicare Natl Gov't Servi Medicare Primary [id number] Self [id number] [place] [id number] Self [id number] [place] Medigap Part B [id number] Self [id number] Umr Medigap Part B [id number] Self [id number] [place] Primary [id number] Self [id number] [place] Medigap Part B [id number] Self [id number] Umr/Uhc/[employer] Medigap Part B [id number] Self [id number] Medicare [place] Gov't Servi Medicare Primary [id number] Self [id number] [place] Primary [id number] Self [id number] [place] Medigap Part B [id number] Self [id number] Umr Medigap Part B [id number] Self [id number] [place] Primary [id number] Self [id number] POMCO [id number] SP [id number] MEDICARE [id number] SP [id number] A Umr Medigap Part B [id number] Self [id number] [employer] Medigap Part B [id number] Self [id number] [place] Primary [id number] Self [id number] Umr Medigap Part B [id number] Self [id number] [employer] Medigap Part B [id number] Self [id number] [place] Primary [id number] Self [id number] [place] Medigap Part B [id number] Self [id number] [place] Primary [id number] Self [id number] [place] Medigap Part B [id number] Self [id number] Medicare [place] Primary [id number] Self [id number] POMCO PPO O [id number] S [id number] MEDICARE C [id number] S [id number] A [employer] Medigap Part B [id number] Self [id number] Medicare [place] Gov't Servi Medicare Primary [id number] Self [id number] [employer] Medigap Part B [id number] Self [id number] [place] Primary [id number] Self [id number] [employer] Medigap Part B [id number] Self [id number] [place] Primary [id number] Self [id number] [place] Medigap Part B [id number] Self [id number] Medicare [place] Gov't Servi Medicare Primary [id number] Self [id number] POMCO [id number] SP [id number] [employer] Medigap Part B Self Medicare [place] Primary Self [place] Medigap Part B Self Medicare [place]l Gov't Servi Medicare Primary Self SELF PAY UNAVAILABLE SP UNAVAILA BLE Problems, Conditions, and Diagnoses Code Display Name Description Problem Type Effective Dates Data Source(s) 315594061 Gastroesophageal reflux disease Gastroesophageal reflux disease Problem 07/11/2020 12:00:00 AM EST [facility] ([facility]) [id number] Generalized anxiety disorder Generalized anxiety disor miguel Problem 07/11/2020 12:00:00 AM EST [facility] ([facility]) C25.9 Malignant neoplasm of pancreas, unspecif ied Malignant neoplasm of pancreas, unspecified Problem 05/16/2020 01:00:00 AM EDT [facility] ([facility]) I10 Essential (primary) hypertension Essential (primary) h ypertension Problem 05/16/2020 01:00:00 AM EDT [facility]AR ([facility] ) Z91.81 History of falling History of falling Problem 0 01:00:00 AM EDT CYBRISTOL ([facility]) Z79.82 intermediate card tender (current) use of aspirin intermediate card tender (cu rrent) use of aspirin Problem 05/16/2020 01:00:00 AM EDT [facility] ([facility]) Z79.891 nursing home (current) use of opiate analge sic nursing home (current) use of opiate analgesic Problem 05/16/2020 01:00:00 AM EDT [facility] ([facility]) Z79.01 intermediate card tender (current) use of anticoagulant s nursing home (current) use of anticoagulants Problem 05/16/2020 01:00:00 AM EDT [facility] ([facility]) Z48.3 Aftercare following surgery for neoplasm Aftercare following surgery for neoplasm Problem 05/16/2020 01:00:00 AM [facility] ([facility]) C25.9 Malignant neoplasm of pancreas, unspecif ied Malignant neoplasm of pancreas, unspecified Diagnosis 09/22/2019 10:06:31 AM [facility] Z13.79 Encounter for other screening for geneti c and chromosomal anomalies Encounter for other screening for genetic and chromosomal anomalies Diagnosis 09/17/2019 12:19:25 PM [facility] Z71.83 Encounter for nonprocreative genetic cou nseling Encounter for nonprocreative genetic counseling Diagnosis 09/17/2019 12:19:25 PM [facility] Pancreatic mass Pancreatic mass Diagnosis 09/10/2019 01:4 9:49 PM [facility] pretest pretest Diagnosis 09/07/2019 01:22:40 PM [facility] K86.89 Other specified diseases of pancreas Oth er specified diseases of pancreas Diagnosis 09/07/2019 11:32:13 AM [facility] C25.0 Malignant neoplasm of head of pancreas M alignant neoplasm of head of pancreas Diagnosis 09/07/2019 10:03:10 AM [facility] Surgeries/Procedures Procedure Description Date Indications Data Source(s) PARTIAL THROMBOPLASTIN TIME (PTT) PARTIAL THROMBOPLASTIN TIME ( PTT) STAT 09/22/2019 10:17 AM EST 09/22/2019 03:17:00 PM [facility] PROTHROMBIN TIME PROTIME INR STAT 09/22/2019 10:17 AM EST 09/22/2019 03:17:00 PM [facility] BLOOD COUNT COMPLETE AUTO&AUTO DIFRNTL WBC COUNT CBC AND DIFFER ENTIAL STAT 09/22/2019 10:17 AM EST 09/22/2019 03:17:00 PM [facility] CT THORAX W/CONTRAST MATERIAL CT THORAX WITH CONTRAST [id number] STA T 09/22/2019 8:41 AM EST Adenocarcinoma of pancreas 09/22/2019 01:41:17 PM EST [facility] arcinoma of pancreas [facility] Adenocarcinoma of pancreas UPPER EUS (ENDOSCOPIC ULTRASOUND) UPPER EUS (ENDOSCOPIC ULTRASO UND) 09/10/2019 12:00 AM EST 09/10/2019 05:00:00 AM [facility] Results ID Date Data Source [id number] 08/31/2020 07:37:00 AM EST [facility] ([facility]) Name Value Range Interpretation Code Description Data Aby rce(s) Supporting Document(s) Cancer Ag 19-9 [Presence] in Serum or Plasma 226.4 U/ML Ab ove high normal [facility] ([facility]) THE CA 19-9 ASSAY IS PERFORMED ON THE AppticlesAUR BY CHEMILUMINESCENCE AND SHOULD NOT BE COMPARED INTERCHANGEABLY WITH OTHER METHODS. IT SHOULD NOT BE USED ALONE A SCREENING TEST OR DIAGNOSIS FOR THE PRESENCE OR ABSENCE OF MALIGNANT DISEASE. PREDICTIONS OF DISEASE RECURRENCE SHOULD NOT BE BASED SOLELY ON VALUES OBTAINED FROM SERIAL PATIENT SERUM VALUES. Carcinoembryonic Ag [Mass/volume] in Serum or Plasma 5.0 ng/mL Above high normal [facility] ([facility]) THE CEA ASSAY IS PERFORMED ON THE [employer] BY CHEMILUMINESCENCE AND SHOULD NOT BE COMPARED INTERCHANGEABLY WITH OTHER METHODS. IT SHOULD NOT BE USED ALONE A SCREENING TEST OR DIAGNOSIS FOR THE PRESENCE OR ABSENCE OF MALIGNANT DISEASE. PREDICTIONS OF DISEASE RECURRENCE SHOULD NOT BE BASED SOLELY ON VALUES OBTAINED FROM SERIAL PATIENT SERUM VALUES. ID Date Data Source [id number] 08/31/2020 07:37:00 AM EST [facility] ([facility]) Name Value Range Interpretation Code Description Data Aby rce(s) Supporting Document(s) Glucose, Fasting 124 mg/dL 70-100 Above high [facility] Blood Urea Nitrogen 8 mg/dL 7-18 Normal (applies to non-nume clarissa results) [facility] ([facility]) Glomerular Filtration Rate Laboratory test result Normal (applies to non- numeric results) [facility] ([facility]) <content>Units are mL/min/1.73 m2</content>
<content></content>
<content>Chronic Kidney Disease Staging per NKF:</content>
<content></content>
<content>Stage I & II GFR >=60 Normal to Mildly Decreased</content>
<content>Stage III GFR 30- 59 Moderately Decreased</content>
<content>Stage IV GFR 15-29 Severely Decreased</content>
<content>Stage V GFR <15 Very Little GFR Left</content>
<content>ESRD GFR <15 on FARM MANAGEMENT SUPERVIS[employer]</content>
<content></content> Creatinine For GFR 0.67 mg/dL 0.55-1.30 Normal (applies to non -numeric results) [facility] ([facility]) Potassium Serum 3.1 meq/L 3.5-5.1 Below low normal [facility] ([facility]) Chloride Level 108 meq/L 98-107 Above high normal [facility] ([facility]) Sodium Level 142 meq/L 136-145 Normal (applies to non-numeric res ults) [facility] ([facility]) Anion Gap 8 meq/L 8-16 Normal (applies to non-numeric resul ts) [facility] ([facility]) Carbon Dioxide Level 26 meq/L 21-32 Normal (applies to non-num grady results) [facility] ([facility]) Calcium Level 7.7 mg/dL 8.8-10.2 Below low normal [facility] T ([facility]) Ast/Sgot 15 U/L 7-37 Normal (applies to non-numeric resul ts) [facility] ([facility]) Alt/SGPT 13 U/L 12-78 Normal (applies to non-numeric resul ts) [facility] ([facility]) Alkaline Phosphatase 133 U/L 45-117 Above high normal [facility] ([facility]) Total Protein 5.2 GM/DL 6.4-8.2 Below low normal [facility] ([facility]) Bilirubin,Total 0.2 mg/dL 0.2-1.0 Normal (applies to non-numeric results) [facility] ([facility]) Albumin 2.2 GM/DL 3.2-5.2 Below low normal [facility] ( [facility]) Albumin/Globulin Ratio 0.7 1.2-2.2 Below low normal [facility] ([facility]) ID Date Data Source [id number] 08/31/2020 07:37:00 AM EST [facility] ([facility]) Name Value Range Interpretation Code Description Data Aby rce(s) Supporting Document(s) White Blood Count 15.7 10 4.0-10.0 Above high normal [facility] ([facility]) Red Blood Count 3.12 10 4.00-5.40 Below low normal [facility] ([facility]) Mean Corpuscular Volume 93.3 fl 80.0-96.0 Normal ( applies to non-numeric results) [facility] ([facility]) Hematocrit 29.1 % 36.0-47.0 Below low normal [facility] ( [facility]) Hemoglobin 9.2 g/dL 12.0-15.5 Below low normal [facility] ( [facility]) Mean Corpuscular Hemoglobin 29.5 pg 27.0-33.0 Norm al (applies to non-numeric results) [facility] ([facility]) Red Cell Distribution Width 16.9 % 11.5-14.5 Above high normal [facility] ([facility]) Mean Corpuscular HGB Conc 31.6 g/dL 32.0-36.5 Below low normal [facility] ([facility]) Lymph % 10.1 % 24.0-44.0 Below low normal [facility] ( [facility]) Neutrophils % 73.1 % 36.0-66.0 Above high normal [facility] ([facility]) Platelet Count, Automated 121 10 150-450 Below low normal [facility] ([facility]) [place] % 7.0 % 0.0-5.0 Above high normal [facility] ([facility]) Eos % 0.4 % 0.0-3.0 Normal (applies to non-numeric resul ts) [facility] ([facility]) Baso % 0.6 % 0.0-1.0 Normal (applies to non-numeric resul ts) [facility] ([facility]) Neutrophils # 11.5 10 1.5-8.5 Above high normal [facility] ([facility]) Immature Granulocyte % 8.8 % 0-3.0 Above high normal [facility] ([facility]) Nucleated Red Blood Cell % 0.1 % 0-0 Above high normal [facility] ([facility]) Eos # 0.1 10 0.0-0.5 Normal (applies to non-numeric resul ts) [facility] ([facility]) Lymph # 1.6 10 1.5-5.0 Normal (applies to non-numeric resul ts) [facility] ([facility]) [place] # 1.1 10 0.0-0.8 Above high normal [facility] ([facility]) Baso # 0.1 10 0.0-0.2 Normal (applies to non-numeric resul ts) [facility] ([facility]) ID Date Data Source [id number] 08/16/2020 09:40:00 AM EST [facility] ([facility]) Name Value Range Interpretation Code Description Data Aby rce(s) Supporting Document(s) White Blood Count 5.5 10 4.0-10.0 Normal (applies to non-numeri c results) [facility] ([facility]) Hemoglobin 10.2 g/dL 12.0-15.5 Below low normal [facility] ( [facility]) Red Blood Count 3.43 10 4.00-5.40 Below low normal [facility] ([facility]) Mean Corpuscular Volume 94.8 fl 80.0-96.0 Normal ( applies to non-numeric results) [facility] ([facility]) Hematocrit 32.5 % 36.0-47.0 Below low normal [facility] ( [facility]) Mean Corpuscular Hemoglobin 29.7 pg 27.0-33.0 Norm al (applies to non-numeric results) [facility] ([facility]) Red Cell Distribution Width 16.6 % 11.5-14.5 Above high normal [facility] ([facility]) Mean Corpuscular HGB Conc 31.4 g/dL 32.0-36.5 Below low normal [facility] ([facility]) Platelet Count, Automated 236 10 150-450 Normal (applies to non-numeric results) [facility] ([facility]) Neutrophils % 74.2 % 36.0-66.0 Above high normal [facility] ([facility]) [place] % 7.2 % 0.0-5.0 Above high normal [facility] ([facility]) Lymph % 17.4 % 24.0-44.0 Below low normal [facility] ( [facility]) Baso % 0.6 % 0.0-1.0 Normal (applies to non-numeric resul ts) [facility] ([facility]) Immature Granulocyte % 0.2 % 0-3.0 Normal (applies to non-n umeric results) [facility] ([facility]) Eos % 0.4 % 0.0-3.0 Normal (applies to non-numeric resul ts) [facility] ([facility]) Lymph # 1.0 10 1.5-5.0 Below low normal [facility] ( [facility]) Nucleated Red Blood Cell % 0.0 % 0-0 Normal (applies to n on-numeric results) [facility] ([facility]) Neutrophils # 4.1 10 1.5-8.5 Normal (applies to non-numeric re sults) [facility] ([facility]) Baso # 0.0 10 0.0-0.2 Normal (applies to non-numeric resul ts) [facility] ([facility]) [place] # 0.4 10 0.0-0.8 Normal (applies to non-numeric resul ts) [facility] ([facility]) Eos # 0.0 10 0.0-0.5 Normal (applies to non-numeric resul ts) [facility] ([facility]) ID Date Data Source [id number] 08/02/2020 11:26:00 AM EST [facility] ([facility]) Name Value Range Interpretation Code Description Data Aby rce(s) Supporting Document(s) Transferrin receptor.soluble [Mass/volume] in Serum or Plasm a 22.5 nmol/L 12.2-27.3 Normal (applies to non-numeric results) [facility] ([facility]) Performed at: [address] [id number] [address]: Sherron Cottrell MD, Phone: [phone] ID Date Data Source [id number] 08/02/2020 09:02:00 AM EST [facility] ([facility]) Name Value Range Interpretation Code Description Data Aby rce(s) Supporting Document(s) Vitamin B12 Level 353 pg/mL Normal (applies to non-numeri c results) [facility] ([facility]) VITAMIN B12 NORMAL RANGE NORMAL 247 - 911 PG/ML INDETERMINATE 211 - 246 PG/ML DEFICIENT LESS THAN 211 PG/ML Folate 14.1 ng/mL Normal (applies to non-numeric resul ts) [facility] ([facility]) FOLATE NORMAL RANGE NORMAL GREATER THAN 5.4 NG/ML INDETERMINATE 3.4-5.4 NG/ML DEFICIENT LESS THAN 3.4 NG/ML ID Date Data Source [id number] 08/02/2020 09:02:00 AM EST [facility] ([facility]) Name Value Range Interpretation Code Description Data Aby rce(s) Supporting Document(s) Cancer Ag 19-9 [Presence] in Serum or Plasma 69.0 U/ML Ab ove high normal [facility] ([facility]) THE CA 19-9 ASSAY IS PERFORMED ON THE [employer] BY CHEMILUMINESCENCE AND SHOULD NOT BE COMPARED INTERCHANGEABLY WITH OTHER METHODS. IT SHOULD NOT BE USED ALONE A SCREENING TEST OR DIAGNOSIS FOR THE PRESENCE OR ABSENCE OF MALIGNANT DISEASE. PREDICTIONS OF DISEASE RECURRENCE SHOULD NOT BE BASED SOLELY ON VALUES OBTAINED FROM SERIAL PATIENT SERUM VALUES. Carcinoembryonic Ag [Mass/volume] in Serum or Plasma 3.1 ng/mL Above high normal [facility] ([facility]) THE CEA ASSAY IS PERFORMED ON THE [employer] BY CHEMILUMINESCENCE AND SHOULD NOT BE COMPARED INTERCHANGEABLY WITH OTHER METHODS. IT SHOULD NOT BE USED ALONE A SCREENING TEST OR DIAGNOSIS FOR THE PRESENCE OR ABSENCE OF MALIGNANT DISEASE. PREDICTIONS OF DISEASE RECURRENCE SHOULD NOT BE BASED SOLELY ON VALUES OBTAINED FROM SERIAL PATIENT SERUM VALUES. ID Date Data Source [id number] 08/02/2020 09:02:00 AM EST [facility] ([facility]) Name Value Range Interpretation Code Description Data Aby rce(s) Supporting Document(s) Glucose, Fasting 96 mg/dL 70-100 Normal (applies to non-numeric results) [facility] ([facility]) Glomerular Filtration Rate Laboratory test result Normal (applies to non- numeric results) [facility] ([facility]) <content>Units are mL/min/1.73 m2</content>
<content></content>
<content>Chronic Kidney Disease Staging per NKF:</content>
<content></content>
<content>Stage I & II GFR >=60 Normal to Mildly Decreased</content>
<content>Stage III GFR 30- 59 Moderately Decreased</content>
<content>Stage IV GFR 15-29 Severely Decreased</content>
<content>Stage V GFR <15 Very Little GFR Left</content>
<content>ESRD GFR <15 on [employer]ARM [employer]NAG[employer] SUPER[employer]</content>
<content></content> Blood Urea Nitrogen 11 mg/dL 7-18 Normal (applies to non-nume clarissa results) [facility] ([facility]) Creatinine For GFR 0.52 mg/dL 0.55-1.30 Below low normal [facility] ([facility]) Sodium Level 142 meq/L 136-145 Normal (applies to non-numeric res ults) [facility] ([facility]) Potassium Serum 3.9 meq/L 3.5-5.1 Normal (applies to non-numeric results) [facility] ([facility]) Chloride Level 109 meq/L 98-107 Above high normal [facility] ([facility]) Carbon Dioxide Level 26 meq/L 21-32 Normal (applies to non-num grady results) [facility] ([facility]) Anion Gap 7 meq/L 8-16 Below low normal [facility] ( [facility]) Alt/SGPT 12 U/L 12-78 Normal (applies to non-numeric resul ts) [facility] ([facility]) Calcium Level 8.1 mg/dL 8.8-10.2 Below low normal [facility] ([facility]) Ast/Sgot 15 U/L 7-37 Normal (applies to non-numeric resul ts) [facility] ([facility]) Total Protein 5.9 GM/DL 6.4-8.2 Below low normal [facility] ([facility]) Bilirubin,Total 0.5 mg/dL 0.2-1.0 Normal (applies to non-numeric results) [facility] ([facility]) Alkaline Phosphatase 115 U/L 45-117 Normal (applies to non-num grady results) [facility] ([facility]) Albumin/Globulin Ratio 0.6 1.2-2.2 Below low normal [facility] ([facility]) Albumin 2.3 GM/DL 3.2-5.2 Below low normal [facility] ( [facility]) ID Date Data Source [id number] 08/02/2020 09:02:00 AM EST [facility] ([facility]) Name Value Range Interpretation Code Description Data Aby rce(s) Supporting Document(s) Red Blood Count 3.31 10 4.00-5.40 Below low normal [facility] ([facility]) White Blood Count 4.6 10 4.0-10.0 Normal (applies to non-numeri c results) [facility] ([facility]) Hemoglobin 9.8 g/dL 12.0-15.5 Below low normal [facility] ( [facility]) Hematocrit 32.1 % 36.0-47.0 Below low normal [facility] ( [facility]) Mean Corpuscular Volume 97.0 fl 80.0-96.0 Above high normal [facility] ([facility]) Mean Corpuscular Hemoglobin 29.6 pg 27.0-33.0 Norm al (applies to non-numeric results) [facility] ([facility]) Mean Corpuscular HGB Conc 30.5 g/dL 32.0-36.5 Below low normal [facility] ([facility]) Red Cell Distribution Width 17.5 % 11.5-14.5 Above high normal [facility] ([facility]) Lymph % 21.5 % 24.0-44.0 Below low normal [facility] ( [facility]) Neutrophils % 70.5 % 36.0-66.0 Above high normal [facility] ([facility]) Platelet Count, Automated 216 10 150-450 Normal (applies to non-numeric results) [facility] ([facility]) [place] % 6.8 % 0.0-5.0 Above high normal [facility] ([facility]) Baso % 0.4 % 0.0-1.0 Normal (applies to non-numeric resul ts) [facility] ([facility]) Eos % 0.4 % 0.0-3.0 Normal (applies to non-numeric resul ts) [facility] ([facility]) Neutrophils # 3.2 10 1.5-8.5 Normal (applies to non-numeric re sults) [facility] ([facility]) Nucleated Red Blood Cell % 0.0 % 0-0 Normal (applies to n on-numeric results) [facility] ([facility]) Immature Granulocyte % 0.4 % 0-3.0 Normal (applies to non-n umeric results) [facility] ([facility]) Eos # 0.0 10 0.0-0.5 Normal (applies to non-numeric resul ts) [facility] ([facility]) [place] # 0.3 10 0.0-0.8 Normal (applies to non-numeric resul ts) [facility] ([facility]) Lymph # 1.0 10 1.5-5.0 Below low normal [facility] ( [facility]) Baso # 0.0 10 0.0-0.2 Normal (applies to non-numeric resul ts) [facility] ([facility]) ID Date Data Source [id number] 07/04/2020 02:46:00 PM EST [facility] ([facility]) Name Value Range Interpretation Code Description Data Aby rce(s) Supporting Document(s) White Blood Count 6.3 10 4.0-10.0 Normal (applies to non-numeri c results) [facility] ([facility]) Red Blood Count 3.00 10 4.00-5.40 Below low normal [facility] ([facility]) Mean Corpuscular Volume 98.0 fl 80.0-96.0 Above high normal [facility] ([facility]) Hemoglobin 8.9 g/dL 12.0-15.5 Below low normal [facility] ( [facility]) Hematocrit 29.4 % 36.0-47.0 Below low normal [facility] ( [facility]) Mean Corpuscular HGB Conc 30.3 g/dL 32.0-36.5 Below low normal [facility] ([facility]) Red Cell Distribution Width 16.6 % 11.5-14.5 Above high normal [facility] ([facility]) Mean Corpuscular Hemoglobin 29.7 pg 27.0-33.0 Norm al (applies to non-numeric results) [facility] ([facility]) Platelet Count, Automated 165 10 150-450 Normal (applies to non-numeric results) [facility] ([facility]) Lymph % 22.5 % 24.0-44.0 Below low normal [facility] ( [facility]) Neutrophils % 70.3 % 36.0-66.0 Above high normal [facility] ([facility]) Baso % 0.3 % 0.0-1.0 Normal (applies to non-numeric resul ts) [facility] ([facility]) Eos % 0.6 % 0.0-3.0 Normal (applies to non-numeric resul ts) [facility] ([facility]) [place] % 5.8 % 0.0-5.0 Above high normal [facility] ([facility]) Neutrophils # 4.4 10 1.5-8.5 Normal (applies to non-numeric re sults) [facility] ([facility]) Immature Granulocyte % 0.5 % 0-3.0 Normal (applies to non-n umeric results) [facility] ([facility]) Nucleated Red Blood Cell % 0.0 % 0-0 Normal (applies to n on-numeric results) [facility] ([facility]) Lymph # 1.4 10 1.5-5.0 Below low normal [facility] ( [facility]) Eos # 0.0 10 0.0-0.5 Normal (applies to non-numeric resul ts) [facility] ([facility]) [place] # 0.4 10 0.0-0.8 Normal (applies to non-numeric resul ts) [facility] ([facility]) Baso # 0.0 10 0.0-0.2 Normal (applies to non-numeric resul ts) [facility] ([facility]) ID Date Data Source [id number] 07/04/2020 02:46:00 PM EST [facility] ([facility]) Name Value Range Interpretation Code Description Data Aby rce(s) Supporting Document(s) Glucose, Fasting 142 mg/dL 70-100 Above high normal [facility] ([facility]) Blood Urea Nitrogen 12 mg/dL 7-18 Normal (applies to non-nume clarissa results) [facility] ([facility]) Creatinine For GFR 0.50 mg/dL 0.55-1.30 Below low normal [facility] ([facility]) Sodium Level 141 meq/L 136-145 Normal (applies to non-numeric res ults) [facility] ([facility]) Glomerular Filtration Rate Laboratory test result Normal (applies to non- numeric results) [facility] ([facility]) <content>Units are mL/min/1.73 m2</content>
<content></content>
<content>Chronic Kidney Disease Staging per NKF:</content>
<content></content>
<content>Stage I & II GFR >=60 Normal to Mildly Decreased</content>
<content>Stage III GFR 30- 59 Moderately Decreased</content>
<content>Stage IV GFR 15-29 Severely Decreased</content>
<content>Stage V GFR <15 Very Little GFR Left</content>
<content>ESRD GFR <15 on [employer]ARM [employer]</content>
<content></content> Carbon Dioxide Level 23 meq/L 21-32 Normal (applies to non-num grady results) [facility] ([facility]) Potassium Serum 3.5 meq/L 3.5-5.1 Normal (applies to non-numeric results) [facility] ([facility]) Chloride Level 111 meq/L 98-107 Above high normal [facility] ([facility]) Anion Gap 7 meq/L 8-16 Below low normal [facility] ( [facility]) Ast/Sgot 20 U/L 7-37 Normal (applies to non-numeric resul ts) [facility] ([facility]) Calcium Level 8.6 mg/dL 8.8-10.2 Below low normal [facility] ([facility]) Alt/SGPT 19 U/L 12-78 Normal (applies to non-numeric resul ts) [facility] ([facility]) Total Protein 6.0 GM/DL 6.4-8.2 Below low normal [facility] ([facility]) Alkaline Phosphatase 122 U/L 45-117 Above high normal [facility] ([facility]) Bilirubin,Total 0.2 mg/dL 0.2-1.0 Normal (applies to non-numeric results) [facility] ([facility]) Albumin/Globulin Ratio 0.8 1.2-2.2 Below low normal [facility] ([facility]) Albumin 2.6 GM/DL 3.2-5.2 Below low normal [facility] ( [facility]) ID Date Data Source [id number] 07/04/2020 02:46:00 PM EST [facility] ([facility]) Name Value Range Interpretation Code Description Data Aby rce(s) Supporting Document(s) Cancer Ag 19-9 [Presence] in Serum or Plasma 31.0 U/ML Normal (applies to non- numeric results) [facility] ([facility]) THE CA 19-9 ASSAY IS PERFORMED ON THE AppticlesAUR BY CHEMILUMINESCENCE AND SHOULD NOT BE COMPARED INTERCHANGEABLY WITH OTHER METHODS. IT SHOULD NOT BE USED ALONE A SCREENING TEST OR DIAGNOSIS FOR THE PRESENCE OR ABSENCE OF MALIGNANT DISEASE. PREDICTIONS OF DISEASE RECURRENCE SHOULD NOT BE BASED SOLELY ON VALUES OBTAINED FROM SERIAL PATIENT SERUM VALUES. Thyrotropin [Units/volume] in Serum or Plasma 13.300 uIU/ML 0. 358-3.740 Above high normal [facility] ([facility]) Thyroxine (T4) free [Mass/volume] in Serum or Plasma 1.01 ng/dL 0.76-1.46 Normal (applies to non-numeric results) [facility] ([facility]) ID Date Data Source [id number] 06/02/2020 02:47:00 PM EDT [facility]) Name Value Range Interpretation Code Description Data Aby rce(s) Supporting Document(s) Cancer Ag 19-9 [Presence] in Serum or Plasma 26.8 U/ML Normal (applies to non- numeric results) [facility] ([facility]) THE CA 19-9 ASSAY IS PERFORMED ON THE Lang[employer] BY CHEMILUMINESCENCE AND SHOULD NOT BE COMPARED INTERCHANGEABLY WITH OTHER METHODS. IT SHOULD NOT BE USED ALONE A SCREENING TEST OR DIAGNOSIS FOR THE PRESENCE OR ABSENCE OF MALIGNANT DISEASE. PREDICTIONS OF DISEASE RECURRENCE SHOULD NOT BE BASED SOLELY ON VALUES OBTAINED FROM SERIAL PATIENT SERUM VALUES. ID Date Data Source [id number] 06/02/2020 02:47:00 PM EDT [facility]) Name Value Range Interpretation Code Description Data Aby rce(s) Supporting Document(s) Creatinine For GFR 0.38 mg/dL 0.55-1.30 Below low normal [facility] ([facility]) Glucose, Fasting 98 mg/dL 70-100 Normal (applies to non-numeric results) [facility] ([facility]) Blood Urea Nitrogen 9 mg/dL 7-18 Normal (applies to non-nume clarissa results) [facility] ([facility]) Glomerular Filtration Rate Laboratory test result Normal (applies to non- numeric results) [facility]) <content>Units are mL/min/1.73 m2</content>
<content></content>
<content>Chronic Kidney Disease Staging per NKF:</content>
<content></content>
<content>Stage I & II GFR >=60 Normal to Mildly Decreased</content>
<content>Stage III GFR 30- 59 Moderately Decreased</content>
<content>Stage IV GFR 15-29 Severely Decreased</content>
<content>Stage V GFR <15 Very Little GFR Left</content>
<content>ESRD GFR <15 on [employer]ARM [employer]PER[employer]</content>
<content></content> Potassium Serum 4.0 meq/L 3.5-5.1 Normal (applies to non-numeric results) [facility] ([facility]) Sodium Level 141 meq/L 136-145 Normal (applies to non-numeric res ults) [facility] ([facility]) Anion Gap 6 meq/L 8-16 Below low normal [facility] ( [facility]) Carbon Dioxide Level 26 meq/L 21-32 Normal (applies to non-num grady results) [facility] ([facility]) Chloride Level 109 meq/L 98-107 Above high normal [facility] ([facility]) Ast/Sgot 36 U/L 7-37 Normal (applies to non-numeric resul ts) [facility] ([facility]) Calcium Level 7.9 mg/dL 8.8-10.2 Below low normal [facility] ([facility]) Alkaline Phosphatase 138 U/L 45-117 Above high normal [facility] ([facility]) Alt/SGPT 37 U/L 12-78 Normal (applies to non-numeric resul ts) [facility] ([facility]) Bilirubin,Total 0.2 mg/dL 0.2-1.0 Normal (applies to non-numeric results) [facility] ([facility]) Albumin/Globulin Ratio 0.5 1.2-2.2 Below low normal [facility] ([facility]) Total Protein 6.3 GM/DL 6.4-8.2 Below low normal [facility] ([facility]) Albumin 2.0 GM/DL 3.2-5.2 Below low normal [facility] ( [facility]) ID Date Data Source [id number] 06/02/2020 02:47:00 PM EDT [facility] ([facility]) Name Value Range Interpretation Code Description Data Aby rce(s) Supporting Document(s) White Blood Count 7.8 10 4.0-10.0 Normal (applies to non-numeri c results) [facility] ([facility]) Red Blood Count 2.47 10 4.00-5.40 Below low normal [facility] ([facility]) Hematocrit 25.3 % 36.0-47.0 Below low normal [facility] ( [facility]) Hemoglobin 7.8 g/dL 12.0-15.5 Below low normal [facility] ( [facility]) Mean Corpuscular Hemoglobin 31.6 pg 27.0-33.0 Norm al (applies to non-numeric results) [facility] ([facility]) Mean Corpuscular HGB Conc 30.8 g/dL 32.0-36.5 Below low normal [facility] ([facility]) Mean Corpuscular Volume 102.4 fl 80.0-96.0 Above high normal [facility] ([facility]) Platelet Count, Automated 318 10 150-450 Normal (applies to non-numeric results) [facility] ([facility]) Neutrophils % 73.7 % 36.0-66.0 Above high normal [facility] ([facility]) Red Cell Distribution Width 13.4 % 11.5-14.5 Norm al (applies to non-numeric results) [facility] ([facility]) [place] % 6.0 % 0.0-5.0 Above high normal [facility] ([facility]) Lymph % 19.1 % 24.0-44.0 Below low normal [facility] ( [facility]) Eos % 0.4 % 0.0-3.0 Normal (applies to non-numeric resul ts) [facility] ([facility]) Baso % 0.3 % 0.0-1.0 Normal (applies to non-numeric resul ts) [facility] ([facility]) Immature Granulocyte % 0.5 % 0-3.0 Normal (applies to non-n umeric results) [facility] ([facility]) Nucleated Red Blood Cell % 0.0 % 0-0 Normal (applies to n on-numeric results) [facility] ([facility]) [place] # 0.5 10 0.0-0.8 Normal (applies to non-numeric resul ts) [facility] ([facility]) Lymph # 1.5 10 1.5-5.0 Normal (applies to non-numeric resul ts) [facility] ([facility]) Neutrophils # 5.8 10 1.5-8.5 Normal (applies to non-numeric re sults) [facility] ([facility]) Eos # 0.0 10 0.0-0.5 Normal (applies to non-numeric resul ts) [facility] ([facility]) Baso # 0.0 10 0.0-0.2 Normal (applies to non-numeric resul ts) [facility] ([facility]) ID Date Data Source [id number] 05/24/2020 12:00:00 AM EDT [facility] Name Value Range Interpretation Code Description Data Aby rce(s) Supporting Document(s) SARS coronavirus 2 RNA panel N [facility] This lab was ordered by [facility] [employer] [facility] and reported by [facility]. ID Date Data Source [id number] 05/16/2020 12:00:00 AM EDT [facility] Name Value Range Interpretation Code Description Data Aby rce(s) Supporting Document(s) SARS coronavirus 2 RNA panel N [facility] This lab was ordered by [employer] [facility] and reported by [facility]. ID Date Data Source [id number] 04/30/2020 12:00:00 AM EDT [facility] Name Value Range Interpretation Code Description Data Aby rce(s) Supporting Document(s) SARS coronavirus 2 RNA panel N [facility] This lab was ordered by [facility] and reported by [facility]. ID Date Data Source [id number] 03/29/2020 12:00:00 AM EDT [facility] Name Value Range Interpretation Code Description Data Aby rce(s) Supporting Document(s) SARS coronavirus 2 RNA panel N [facility] This lab was ordered by [employer] [facility] and reported by [facility]. ID Date Data Source [id number] 03/24/2020 09:21:00 AM EDT [facility] ([facility]) Name Value Range Interpretation Code Description Data Aby rce(s) Supporting Document(s) Prealbumin [Mass/volume] in Serum or Plasma 8.9 mg/dL 20.0 -40.0 Below low normal [facility] ([facility]) Cancer Ag 19-9 [Presence] in Serum or Plasma 30.0 U/ML Normal (applies to non- numeric results) [facility] ([facility]) THE CA 19-9 ASSAY IS PERFORMED ON THE AppticlesAUR BY CHEMILUMINESCENCE AND SHOULD NOT BE COMPARED INTERCHANGEABLY WITH OTHER METHODS. IT SHOULD NOT BE USED ALONE A SCREENING TEST OR DIAGNOSIS FOR THE PRESENCE OR ABSENCE OF MALIGNANT DISEASE. PREDICTIONS OF DISEASE RECURRENCE SHOULD NOT BE BASED SOLELY ON VALUES OBTAINED FROM SERIAL PATIENT SERUM VALUES. ID Date Data Source [id number] 03/24/2020 09:21:00 AM EDT [facility] ([facility]) Name Value Range Interpretation Code Description Data Aby rce(s) Supporting Document(s) Blood Urea Nitrogen 9 mg/dL 7-18 Normal (applies to non-nume clarissa results) [facility] ([facility]) Glucose, Fasting 84 mg/dL 70-100 Normal (applies to non-numeric results) [facility] ([facility]) Creatinine For GFR 0.43 mg/dL 0.55-1.30 Below low normal [facility] ([facility]) Sodium Level 145 meq/L 136-145 Normal (applies to non-numeric res ults) [facility] ([facility]) Glomerular Filtration Rate Laboratory test result Normal (applies to non- numeric results) [facility]) <content>Units are mL/min/1.73 m2</content>
<content></content>
<content>Chronic Kidney Disease Staging per NKF:</content>
<content></content>
<content>Stage I & II GFR >=60 Normal to Mildly Decreased</content>
<content>Stage III GFR 30- 59 Moderately Decreased</content>
<content>Stage IV GFR 15-29 Severely Decreased</content>
<content>Stage V GFR <15 Very Little GFR Left</content>
<content>ESRD GFR <15 on [employer]ARM MANAG[employer]PER[employer]</content>
<content></content> Chloride Level 113 meq/L 98-107 Above high normal [facility] ([facility]) Potassium Serum 3.5 meq/L 3.5-5.1 Normal (applies to non-numeric results) [facility] ([facility]) Carbon Dioxide Level 30 meq/L 21-32 Normal (applies to non-num grady results) [facility] ([facility]) Calcium Level 8.4 mg/dL 8.8-10.2 Below low normal [facility] ([facility]) Anion Gap 2 meq/L 8-16 Below low normal [facility] ( [facility]) Alkaline Phosphatase 195 U/L 45-117 Above high normal [facility] ([facility]) Ast/Sgot 84 U/L 7-37 Above high normal [facility] ([facility]) Alt/SGPT 60 U/L 12-78 Normal (applies to non-numeric resul ts) [facility] ([facility]) Total Protein 5.8 GM/DL 6.4-8.2 Below low normal [facility] ([facility]) Albumin 3.0 GM/DL 3.2-5.2 Below low normal [facility] ( [facility]) Bilirubin,Total 1.3 mg/dL 0.2-1.0 Above high normal [facility] ([facility]) Albumin/Globulin Ratio 1.1 1.2-2.2 Below low normal [facility] ([facility]) ID Date Data Source [id number] 03/24/2020 09:21:00 AM EDT [facility] ([facility]) Name Value Range Interpretation Code Description Data Aby rce(s) Supporting Document(s) White Blood Count 3.9 10 4.0-10.0 Below low normal [facility] ([facility]) Hemoglobin 10.6 g/dL 12.0-15.5 Below low normal [facility] ( [facility]) Red Blood Count 2.93 10 4.00-5.40 Below low normal [facility] ([facility]) Mean Corpuscular Volume 110.6 fl 80.0-96.0 Above high normal [facility] ([facility]) Hematocrit 32.4 % 36.0-47.0 Below low normal [facility] ( [facility]) Mean Corpuscular Hemoglobin 36.2 pg 27.0-33.0 Above high normal [facility] ([facility]) Red Cell Distribution Width 15.9 % 11.5-14.5 Above high normal [facility] ([facility]) Platelet Count, Automated 173 10 150-450 Normal (applies to non-numeric results) [facility] ([facility]) Mean Corpuscular HGB Conc 32.7 g/dL 32.0-36.5 Normal (applies to non-numeric results) [facility] ([facility]) Neutrophils % 65.0 % 36.0-66.0 Normal (applies to non-numeric re sults) [facility] ([facility]) Lymph % 26.5 % 24.0-44.0 Normal (applies to non-numeric resul ts) [facility] ([facility]) [place] % 7.5 % 0.0-5.0 Above high normal [facility] ([facility]) Baso % 0.5 % 0.0-1.0 Normal (applies to non-numeric resul ts) [facility] ([facility]) Immature Granulocyte % 0.0 % 0-3.0 Normal (applies to non-n umeric results) [facility] ([facility]) Eos % 0.5 % 0.0-3.0 Normal (applies to non-numeric resul ts) [facility] ([facility]) Lymph # 1.0 10 1.5-5.0 Below low normal [facility] ( [facility]) Neutrophils # 2.5 10 1.5-8.5 Normal (applies to non-numeric re sults) [facility] ([facility]) Nucleated Red Blood Cell % 0.0 % 0-0 Normal (applies to n on-numeric results) [facility] ([facility]) [place] # 0.3 10 0.0-0.8 Normal (applies to non-numeric resul ts) [facility] ([facility]) Eos # 0.0 10 0.0-0.5 Normal (applies to non-numeric resul ts) [facility] ([facility]) Baso # 0.0 10 0.0-0.2 Normal (applies to non-numeric resul ts) [facility] ([facility]) ID Date Data Source [id number] 03/24/2020 09:21:00 AM EDT [facility] ([facility]) Name Value Range Interpretation Code Description Data Aby rce(s) Supporting Document(s) Prothrombin Time 15.5 s 11.8-14.0 Above high [facility] Partial Thromboplastin Time 33.0 s 25.0-38.4 Norm al (applies to non-numeric results) [facility] ([facility]) Inr 1.20 Normal (applies to non-numeric resul ts) [facility] ([facility]) THERAPUTIC HUMAN INR VALUES INDICATIONS NORMAL RANGES PROPHYLAXIS/TREATMENT OF: VENOUS THROMBOSIS 2.0-3.0 PULMONARY EMBOLISM 2.0-3.0 PREVENTION OF SYSTEMIC EMBOLISM FROM: TISSUE HEART VALVES 2.0-3.0 ACUTE MYOCARDIAL INFARCTION 2.0-3.0 VALVULAR HEART DISEASE 2.0-3.0 ATRIAL FIBRILLATION 2.0-3.0 MECHANICAL VALVES(HIGH RISK) 2.5-3.5 RECURRENT MYOCARDIAL INFARCTION 2.5-3.5 ID Date Data Source [id number] 03/08/2020 09:23:00 AM EDT [facility] ([facility]) Name Value Range Interpretation Code Description Data Aby rce(s) Supporting Document(s) Cancer Ag 19-9 [Presence] in Serum or Plasma Laboratory test res ult Normal (applies to non-numeric results) [facility] ([facility]) ID Date Data Source [id number] 03/08/2020 09:23:00 AM EDT [facility] ([facility]) Name Value Range Interpretation Code Description Data Aby rce(s) Supporting Document(s) Blood Urea Nitrogen 11 mg/dL 7-18 Normal (applies to non-nume clarissa results) [facility] ([facility]) Creatinine For GFR 0.46 mg/dL 0.55-1.30 Below low normal [facility] ([facility]) Glucose, Fasting 96 mg/dL 70-100 Normal (applies to non-numeric results) [facility] ([facility]) Potassium Serum 3.0 meq/L 3.5-5.1 Below low normal [facility] ([facility]) Sodium Level 146 meq/L 136-145 Above high normal [facility] ([facility]) Glomerular Filtration Rate Laboratory test result Normal (applies to non- numeric results) [facility] ([facility]) <content>Units are mL/min/1.73 m2</content>
<content></content>
<content>Chronic Kidney Disease Staging per NKF:</content>
<content></content>
<content>Stage I & II GFR >=60 Normal to Mildly Decreased</content>
<content>Stage III GFR 30- 59 Moderately Decreased</content>
<content>Stage IV GFR 15-29 Severely Decreased</content>
<content>Stage V GFR <15 Very Little GFR Left</content>
<content>ESRD GFR <15 on FARM MANAG[employer] SUPER[employer]</content>
<content></content> Carbon Dioxide Level 27 meq/L 21-32 Normal (applies to non-num grady results) [facility] ([facility]) Anion Gap 8 meq/L 8-16 Normal (applies to non-numeric resul ts) [facility] ([facility]) Chloride Level 111 meq/L 98-107 Above high normal [facility] ([facility]) Alt/SGPT 101 U/L 12-78 Above high normal [facility] ([facility]) Calcium Level 8.2 mg/dL 8.8-10.2 Below low normal [facility] ([facility]) Ast/Sgot 93 U/L 7-37 Above high normal [facility] ([facility] Alkaline Phosphatase 227 U/L 45-117 Above high normal [facility] ([facility]) Total Protein 5.5 GM/DL 6.4-8.2 Below low normal [facility] ([facility]) Bilirubin,Total 0.7 mg/dL 0.2-1.0 Normal (applies to non-numeric results) [facility] ([facility]) Albumin/Globulin Ratio 1.1 1.2-2.2 Below low normal [facility] ([facility]) Albumin 2.9 GM/DL 3.2-5.2 Below low normal [facility] ( [facility]) ID Date Data Source [id number] 03/08/2020 09:23:00 AM EDT [facility] ([facility]) Name Value Range Interpretation Code Description Data Aby rce(s) Supporting Document(s) White Blood Count 6.8 10 4.0-10.0 Normal (applies to non-numeri c results) [facility] ([facility]) Red Blood Count 2.91 10 4.00-5.40 Below low normal [facility] ([facility]) Hemoglobin 10.0 g/dL 12.0-15.5 Below low normal [facility] ( [facility]) Hematocrit 30.3 % 36.0-47.0 Below low normal [facility] ( [facility]) Mean Corpuscular HGB Conc 33.0 g/dL 32.0-36.5 Normal (applies to non-numeric results) [facility] ([facility]) Mean Corpuscular Volume 104.1 fl 80.0-96.0 Above high normal [facility] ([facility]) Mean Corpuscular Hemoglobin 34.4 pg 27.0-33.0 Above high normal [facility] ([facility]) Red Cell Distribution Width 17.4 % 11.5-14.5 Above high normal [facility] ([facility]) Neutrophils % 69.3 % 36.0-66.0 Above high normal [facility] ([facility]) Platelet Count, Automated 125 10 150-450 Below low normal [facility] ([facility]) Lymph % 19.2 % 24.0-44.0 Below low normal [facility] ( [facility]) [place] % 10.0 % 0.0-5.0 Above high normal [facility] ([facility]) Eos % 0.3 % 0.0-3.0 Normal (applies to non-numeric resul ts) [facility] ([facility]) Baso % 0.6 % 0.0-1.0 Normal (applies to non-numeric resul ts) [facility] ([facility]) Nucleated Red Blood Cell % 0.0 % 0-0 Normal (applies to n on-numeric results) [facility] ([facility]) Immature Granulocyte % 0.6 % 0-3.0 Normal (applies to non-n umeric results) [facility] ([facility]) Neutrophils # 4.7 10 1.5-8.5 Normal (applies to non-numeric re sults) [facility] ([facility]) Lymph # 1.3 10 1.5-5.0 Below low normal [facility] ( [facility]) Baso # 0.0 10 0.0-0.2 Normal (applies to non-numeric resul ts) [facility] ([facility]) [place] # 0.7 10 0.0-0.8 Normal (applies to non-numeric resul ts) [facility] ([facility]) Eos # 0.0 10 0.0-0.5 Normal (applies to non-numeric resul ts) [facility] ([facility]) ID Date Data Source [id number] 11/25/2019 04:00:53 PM EDT [facility] Name Value Range Interpretation Code Description Data Aby rce(s) Supporting Document(s) Progress Note [facility] YMECTz0iPwJMCoDv16/LIEyyRGBcf1LvJWquPJi4BEnuEGYuU8KjYAR1tV6sQEU7WFcNBuHcMhVaIQL7 lbm [file] AgICAgICAgICAgICAgICAgICAgICAgICAgICAgICAgICAgICAgICAgICAgICAgICAgICAgICAgICAgIC AgICAgICAgICAgICAgDQogICAgICAgICAgICAgICAg ICAgICAgICAgICAgICAgICAgICAgICAgICAgICAgICAgICAgICAgICAgICAgICAgICAgICAgICAgICAg ICAgICAgICAgICAgICAgICAgICAgICAgDQogICAgICAgICAgICAgICAgICAgICAgICAgICAgICAgICAg ICAgICAgICAgICAgICAgICAgICAgICAgICAgICAgIC AgICAgICAgICAgICAgICAgICAgICAgICAgICAgICAgICAgDQogICAgICAgICAgICAgICAgICAgICAgIC AgICAgICAgICAgICAgICAgICAgICAgICAgICAgICAgICAgICAgICAgICAgICAgICAgICAgICAgICAgIC AgICAgICAgICAgICAgICAgDQogICAgICAgICAgICAg ICAgICAgICAgICAgICAgICAgICAgICAgICAgICAgICAgICAgICAgICAgICAgICAgICAgICAgICAgICAg ICAgICAgICAgICAgICAgICAgICAgICAgICAgDQogICAgICAgICAgICAgICAgICAgICAgICAgICAgICAg ICAgICAgICAgICAgICAgICAgICAgICAgICAgICAgIC AgICAgICAgICAgICAgICAgICAgICAgICAgICAgICAgICAgICAgDQogICAgICAgICAgICAgICAgICAgIC AgICAgICAgICAgICAgICAgICAgICAgICAgICAgICAgICAgICAgICAgICAgICAgICAgICAgICAgICAgIC AgICAgICAgICAgICAgICAgICAgDQogICAgICAgICAg ICAgICAgICAgICAgICAgICAgICAgICAgICAgICAgICAgICAgICAgICAgICAgICAgICAgICAgICAgICAg ICAgICAgICAgICAgICAgICAgICAgICAgICAgICAgDQogICAgICAgICAgICAgICAgICAgICAgICAgICAg ICAgICAgICAgICAgICAgICAgICAgICAgICAgICAgIC AgICAgICAgICAgICAgICAgICAgICAgICAgICAgICAgICAgICAgICAgDQogICAgICAgICAgICAgICAgIC AgICAgICAgICAgICAgICAgICAgICAgICAgICAgICAgICAgICAgICAgICAgICAgICAgICAgICAgICAgIC GyHDJeAKLpJTOhGCYsDTOyVSAxNNGnNLn1G5aeBLZw UQVzZH7yADt8Ds1+QEdVKqKyNEV1vlKhqM3WLX1sl1JhMLwwXOShi0ZhKPl9IM7OHSNpGHgnRB8XYTym fn1UNPSjMUPlkSQAs3ugPhHrLWE1JZBpMtctNM8LBDQqZ0jlbkOiWDPbJBPUVDwhHGYJEQuiSTAGMDEj IWTtCzCdSDpzWE9Ry3XfiLQ7NXw+Zz7YNL2wu6GrXD epOWBuDO6tqc5ACVuARhBdH6RiaxJ4YOQ9BACmBg3GFMTlTACuvMVyZHDnQQMCJfPdC4VovC69JZMVAk 4+DMmuilBuFhhMGfW7KUIsj8WyMKu7LV8IIVRgYOx0kZVqMRHdO1Ipd9XgTe59ZLQwAfxkP94ugNArhu AMJNBsBWxqnTEbtythFuFoXOIzFS7xTS2hQUDtPELd CsPqLTBMCI5IZOWgGVNqfHPgSQQwKMXARE8YEShcBTA0NAMvrxNlrDJiAVvdMP0ICSYfnnSsRkncPRTS DQo+Vi7TKB9qb9XpWQlrYHFjLC8iid8PXDnFOgDnQ8G9gMThM4F7VHnrDr0BMYUrDRBiTjAdHTIPQVjn DB9OWK0yiaI4QT2IrDNiCXCyXDTtvWLtPSq4W39spT AmFTyvFM1ODES+Mariaa+Kx1MNCGbDRXoIEPiRxLvSIHZGvFeR1DtY0INg6TxR4VbKK72aDcnsnIyWUwvLQ 5ZIZ8bLROdJEQDIV6GyFSyrS5kyjLcQVVdQTAYGhVvQ89ovDDoLGTaFYT6DOAsNs6RRDFzS1UowhNvtF nxvyMcEWTzCUDAVJ3FIVlzcrAgdUWbfVwbPX03sLnt XM6UEr5HYvXwQF5rti3OnYLjZg1TZGAeDQ3DBHAePRVxVFTdDKE7SHWqByDfRMfbEHHrYLKbTAQ5CEGh TOEdMX4OEmFlYCPzQWU6DFWcNFUxGBNbaz9COEJmMHW6PlC2XJMoQLMkTLZeVFauGUQuCRKxFWS0IHGj NQUeHG3VVqSkNGDuRQJ1ZXWmCPEeXPUwev3ARMInVV KpEXQ5BXHeOCRsSJHjLIijVVAtBKY8QTIiTVWnDWVaPO5JNpLzYVAvGJtmUGktHXHdMEEkbu7DEYMjHA QgVITnFFShHKYbFFYqNEzgCVSwUCKrRWOpRRYbSUYcND6BLzUiSKWqPCH5GwMvGSBlVVRtyo7QWJJhLL KoVvR1FnWoKCDvTWTsOEdmIBNtZLW3LKXfCPYjWLUi OE5CJnEwSNRqQNLtYdsoQOEbMCSvkc4LXPSfGYUwFMBoQlVgLFTaISLoNPyaIGKhUMF9NJygADFiZRGj KA8IOeAlGPNmNRU9GeMcTAKmNJPztz6PMINqEUYoLGi1HFRpZRAvGMEjZJlwYXArJKC7ZcksGSOySMUb WW2UNsUtERKjWFc8CDGzRTQuHNSeth0NYMJgVPS1PB UuFyXtVBIjKOTdFMvqFPYeEED9EUS0BRIdIKAgTI9NGpMlRCJoQGsrOLAiTVZuKQIgxf3CJFUzGEW4UO SqEDQdHNQvWFWgDZjmJKUdTCHaCzM5JRQvYLPbPV6QCqQcRDOxBTDzYSRwSSKoAXGffk2FQXYjCGD3NB guQNZzHCYbGYDcCAawIIWsIWWvVdB6XBXjSDYbNP7Z CcOeYKBjCEQcTwaeAJQmBUTkna1CHHClEQI6OtJ0NdMmLSFuIXEcNQc7qyFvkMGtBSp9AF5KI0WhfoOq GpVAPh9Tm544EFDwWQAwIh4DW1uyNl7cCAKnWYLQTd8DGTq8CGZzVqFtOaWxQKIqAKBsXzXcKOV7IJT4 YzhmZTQwNDI+LJiwZPQbZoNtHNG7NRFcXAS6A6UpIR f2KwZbXNLsNCJ1Lx2pXAQKWv1+QZkojWCykJptKQJGSgSlUgM3OKuaKFHGJk1B ID Date Data Source [id number] 11/25/2019 02:06:15 PM EDT [facility] Name Value Range Interpretation Code Description Data Aby rce(s) Supporting Document(s) Progress Note [facility] KDFXIs8pFlXKLkVk07/AXDgaBYAud1EaRShaHLu7JUhtXYZxV7LmSTY8mG4pVFW2VJnFPvShUbBkYLB6 lbm ZcJrvVIfIvSVKdWytVCgRbCNwvHtpvsITqMQ6KyGV5NYZnD05pQIHtYEJmC3JnWRX4GkD+Tx4XZCWtwK RqBD8KDieD5Qryn+M2DP4+SX0AgCQmb2lcaumTLvVMwWF84bpbeHTkYZW0kAdmGD6csbOm94+fbEtxqC jrmNZHtJ5PW0D7xZNEUn9Bim9+HXwzyRGE6g/mMU4o ddudq20XbKerN5U38BBXZefpVE5GrJfK/e1mC7euX3wmYuYbWbNS6ZaQJkaL0OubQQwyU7nmm60UCj2d 0yJFV+tx3Iy7HGaYHGVL8tb4iBcC0b/B0n0VPVyX4JMxnDJEKQsyTAWr1vFvMeu5GEL21QvYMouU2XMS bKV3Iri35ifWayfM7EQnXJEK5N9+qZtqAMrxlyHUoS G9TZzCIukuVyi1sGErd1nSsSw2Rgk9bFqf21qUvx+xjAjaispdjde0IfaclCTYOlCB0MT+PZ6de0OtrN ZajUHZrnN/XKxXr88cYZrPr/10oiIudi3NUk6kSRrtgwMN401v7c/1/BjhCUneqVlyMYL8Ms4ZqmlKp+ RhjLrFcBvfx7UGCZIcf6cFt8TFMBXMcB10L8MbmZ3p y3eSRrzqx68W7ZR/JK1S0oQATRxQl4TAUYDCpJd+sCLCI7OXmgVQWHjvFX9UXWAUTaG/1Tds160nl5Kc KpbvbwoxFUUhJu/4hfkm61Y+7Yr86dmWKJYynaRWAoAGSP3UnwUQOPaiygaKUj9DsElxTLC53BVfwLTw cJlXY8QqRKhrluNDH8Q7jnaYWvhDfw53sBq9QNQOwS VNS4G+ReOF/3xEXOMLRI7PbdfjVIP3kvB1l/2HrIX7oWBwfwhMTclqnDk1n4NPMmrxP9QlI+ay3z+ly3 O11KBSB2edoiIfjck/SUMMERS+PVQWoTRDl8kXYfCM8C2hciMn3BBX8YxqWS/dV56Qst3coK/kAvAmttKima [file] AgICAgICAgICAgICAgICAgICAgICAgICAgICAgICAg ICAgICAgICAgICAgICAgICAgICANCiAgICAgICAgICAgICAgICAgICAgICAgICAgICAgICAgICAgICAg ICAgICAgICAgICAgICAgICAgICAgICAgICAgICAgICAgICAgICAgICAgICAgICAgICAgICAgICAgICAg ICANCiAgICAgICAgICAgICAgICAgICAgICAgICAgIC AgICAgICAgICAgICAgICAgICAgICAgICAgICAgICAgICAgICAgICAgICAgICAgICAgICAgICAgICAgIC AgICAgICAgICAgICANCiAgICAgICAgICAgICAgICAgICAgICAgICAgICAgICAgICAgICAgICAgICAgIC AgICAgICAgICAgICAgICAgICAgICAgICAgICAgICAg ICAgICAgICAgICAgICAgICAgICAgICANCiAgICAgICAgICAgICAgICAgICAgICAgICAgICAgICAgICAg ICAgICAgICAgICAgICAgICAgICAgICAgICAgICAgICAgICAgICAgICAgICAgICAgICAgICAgICAgICAg ICAgICANCiAgICAgICAgICAgICAgICAgICAgICAgIC AgICAgICAgICAgICAgICAgICAgICAgICAgICAgICAgICAgICAgICAgICAgICAgICAgICAgICAgICAgIC AgICAgICAgICAgICAgICANCiAgICAgICAgICAgICAgICAgICAgICAgICAgICAgICAgICAgICAgICAgIC AgICAgICAgICAgICAgICAgICAgICAgICAgICAgICAg ICAgICAgICAgICAgICAgICAgICAgICAgICANCiAgICAgICAgICAgICAgICAgICAgICAgICAgICAgICAg ICAgICAgICAgICAgICAgICAgICAgICAgICAgICAgICAgICAgICAgICAgICAgICAgICAgICAgICAgICAg ICAgICAgICANCiAgICAgICAgICAgICAgICAgICAgIC AgICAgICAgICAgICAgICAgICAgICAgICAgICAgICAgICAgICAgICAgICAgICAgICAgICAgICAgICAgIC AgICAgICAgICAgICAgICAgICANCiAgICAgICAgICAgICAgICAgICAgICAgICAgICAgICAgICAgICAgIC AgICAgICAgICAgICAgICAgICAgICAgICAgICAgICAg ICAgICAgICAgICAgICAgICAgICAgICAgICAgICANCjw/eCOjM0fubLYhxdZ2X4doWb0AZr8UMM0ao7Uj LFLkMAyjbxEqJdhXKeVbKHDyIyjCAut9YUoiCV5FjMXwF0HlG5ZjYUyvQZ7ZECHyXEZdmVBdOLNbDXCi FzX1BVFoDOqpNE4XmLCqOIaiDPFrXMSkYH3LEZYhS0 00wyTvKW7XKm9FLeRkIB9czg7HBZyzCWSjUbkMMgw0ZPwzMQ2TdPGuqFBuCBNbBLRTExQjC5iky5GwYy KwSSJRVWdyCK3Pd0AxiBEmGPk+Tn9JXC8lb5BwNLhbHFQsJL4uoy0YKKgFSeJsN4XvjNjyKKDem6jvFW NgTZ8ynFZaATL2UDbnzfXpDAXdMQBwxZpnJXTetNQm cTDlAXxAO3uoOUUcUO6fHJ2pWVToBKVqEjZ1RATWFX1VGGJoNHBrcYSeUTGsPDEZUP1ATEqyZRJ6HBEl dvPbqQFmJFknUB7RHKAomjKfNVcyNLLJWSe+Hk3BEN0fk6MzAKqlCNAwVS6sub8BIFqZQzGoT3B0uXKo B1S1PYrqHa2AQYBkFQCeRHdxYCEKGWbwHI0TKG4gqo E7DU3HoWDlZDVxOUNtyRRmSOh7F60lrVPqDDtpFD7FYLB+Mariaa+Qu2ODAUdKLBmBFLzZmPfTQYLHwThH5 DxZ8BRa2MdK0KeAG99cMqtejSjHJvtNS3VWX7gYOSzLDILLD8JvQMrvF8mltQvJZUuCZXQMdTtT90wdA QsHQJsGKA2CJAqKw7YPUXwA3EgauXlnHtywpIqEOEa CVRHGV4GVPfknyXbxOOitIefRV28bZbbXP9EQs6KVlRkXH2ctr6XxYWxCz9XMVNlRp6XETYlFNLgQUOs UIL0WSIjWsMoHGihGUUyHZSjRRK2XMLcBOEnXA6OSuLyCGXbCJO5EqdyWTWbYTGrvx8ZTEYfRLGmJSA3 AsFnXVXwAHXjKHlaNFOgXKFmJJS7EFYvNGGmJL0ZYy ZsVZKlGHF2MrZbXGZsHHDwut8SFBSlICGfCQw6EYSfXCZfTHNyKNetIDVtHKUeIIE2BGYnDJQtAU1EDa DwWINyPZCaEgZbIRFkUPTgpc1SYMDoBPYiOuVuFiKoAHJmWDSlNLevZFSfHKJ9HOMdCDPlLMPqGF4SFr GnNEBdVNZmMrHvEBRfCQJvpw8PUDHcKMGaWPR9DDZj OXGaHVVeXOjgCFZbMVZ3ETT3XEDyPMKcHS8SAxTtEKRoNRWdQpFnSPSvKQWjxp4ZRMVoALToJuNdPLZq WOZfFGLmICtkRKEgGIZ3UtsaGRGcIKPaDU5XUsYaLOOhGVU8CCTpBXPnDOFlvx9HMZLgBVQrCeBzZcFd YISxZLFqXGerITApVNT6TpR8BIAiORKiTY6MPuEaZJ OyYEw5DgQzDTVzUCUvfa6ZYFTaXJVvUWb6XOZgHZLoKWRvSTc5raBwuCFwNOh1FH8KK2AxxzPgJmEHFk 6Bd466AJYeXTHwJy9BF3iiQw7tKAWtDRLNVn6PEOh2UdJ2DpErARWrJMD3JOAoTNR9AxWzMgBmJLKaDG UwODE+VDseTOKjNLS4CqGlELa6FxSbFmOjNlPfQXHm USCjTND7LD9fHQDGSc7+QEiouMCnwMzhXFVYCjW5FUE7PNhzWNOGTd4A ID Date Data Source [id number] 11/16/2019 04:57:00 PM EDT [facility] ([facility]) Name Value Range Interpretation Code Description Data Aby rce(s) Supporting Document(s) Lactic Acid Level, Lactate 1.0 mmol/L 0.4-2.0 Teodora l (applies to non-numeric results) [facility] ([facility]) Lactate [Mass/volume] in Serum or Plasma <pending> [facility] ([facility]) ID Date Data Source [id number] 11/16/2019 03:50:00 PM EDT [facility] ([facility]) Name Value Range Interpretation Code Description Data Aby rce(s) Supporting Document(s) Gastrointestinal (GI) Panel This Gastrointes <SEE NOTE> [facility] ([facility]) This Gastrointestinal PCR Panel detects the following bacteria, parasites and viruses: Campylobacter (jejuni, coli and upsaliensis), Clostridium difficile (toxin A/B), Plesiomonas shigelloides, Salmonella, Yersinia enterocolitica, Vibrio (parahaemolyticus, vulnificus and cholerae), Vibrio clolerae, Enteroaggregative E. coli (EAEC), Enteropathogenis E. coli (EPEC), Enterotoxigenic E. coli (ETEC) it/st, Shiga-like producing E. coli (STEC) stx1/stc2, E.coli O157, Shigella/Enteroinvasive E. coli (EIEC), Cryptosporidium, Cyclospora cayetanensis, Entamoeba histolytica, Giardia lamblia, Adenovirus F 40/41, Astrovirus, Norovirus GI/GII, Rotavirus A and Sapovirus (I, II, IV, V). NEGATIVE by MULTIPLEXED NUCLEIC ACID PCR ID Date Data Source [id number] 11/16/2019 03:50:00 PM EDT [facility] ([facility]) Name Value Range Interpretation Code Description Data Aby rce(s) Supporting Document(s) PH,Urine RFX 5.0 units 5.0-9.0 Normal (applies to non-numeric res ults) [facility] ([facility]) Appearance, Urine RFX CLOUDY Above high normal [facility] ([facility]) Color, Urine RFX LLUVIA Normal (applies to non-numeric results) [facility] ([facility]) Glucose, Urine (Ua) Auto RFX NEGATIVE mg/dL Nor mal (applies to non-numeric results) [facility] ([facility]) Protein, Urine Auto RFX 2+ mg/dL Above high normal [facility] ([facility]) Specific [place] Ur Auto RFX 1.029 1.002-1.035 Nor mal (applies to non-numeric results) [facility] ([facility]) Bilirubin, Urine Auto RFX 2+ Above high normal [facility] ([facility]) Urobilinogen, Urine Auto RFX 2.0 mg/dL 0.0-2.0 Above high normal [facility] ([facility]) Ketone, Urine Auto RFX TRACE mg/dL Above high normal [facility] ([facility]) Nitrite, Urine Auto RFX NEGATIVE Normal (applies to non- numeric results) [facility] ([facility]) Leukocyte Esterase Ur Auto RFX TRACE Above high teodora l [facility] ([facility]) Blood, Urine Blood RFX NEGATIVE Normal (applies to non-n umeric results) [facility] ([facility]) WBC, Urine Auto RFX 105 /HPF 0-3 Above high normal [facility] ([facility]) RBC, Urine Auto RFX 13 /HPF 0-3 Above high normal [facility] ([facility]) Mucus, Urine RFX LARGE Normal (applies to non-numeric results) [facility] ([facility]) Bacteria, Urine Auto RFX 3+ Above high normal [facility] ([facility]) Squam Epithelial Cell Ur Aurfx 19 /HPF 0-6 N ormal (applies to non-numeric results) [facility] ([facility]) Hyaline Cast, Urine Auto RFX 237 /LPF 0-1 Nor mal (applies to non-numeric results) [facility] ([facility]) Granular Cast, Urine Auto RFX 25 /LPF Normal (shayy lies to non-numeric results) [facility] ([facility]) ID Date Data Source [id number] 11/16/2019 12:51:00 PM EDT [facility] ([facility]) Name Value Range Interpretation Code Description Data Aby rce(s) Supporting Document(s) Platelets [#/volume] in Blood by Estimate NORMAL Normal (applies to non- numeric results) [facility] ([facility]) ID Date Data Source [id number] 11/16/2019 12:51:00 PM EDT [facility] ([facility]) Name Value Range Interpretation Code Description Data Aby rce(s) Supporting Document(s) Neutrophils 41 % 28-66 Normal (applies to non-numeric resu lts) [facility] ([facility]) Bands 6 % Normal (applies to non-numeric resul ts) [facility] ([facility]) Lymphocytes 38 % 16-44 Normal (applies to non-numeric resu lts) [facility] ([facility]) Metamyelocytes 3 % 0-0 Above high normal [facility] ([facility]) Myelocytes 6 % 0-0 Above high normal [facility] ([facility]) Monocytes 4 % 0-5 Normal (applies to non-numeric resul ts) [facility] ([facility]) Atypical Lymph 2 % 0-5 Normal (applies to non-numeric r esults) [facility] ([facility]) RBC Morphology NORMAL Normal (applies to non-numeric r esults) [facility] ([facility]) ID Date Data Source [id number] 11/16/2019 12:51:00 PM EDT [facility] ([facility]) Name Value Range Interpretation Code Description Data Aby rce(s) Supporting Document(s) White Blood Count 14.1 10 4.0-10.0 Above high normal [facility] ([facility]) Hemoglobin 12.3 g/dL 12.0-15.5 Normal (applies to non-numeric resul ts) [facility] ([facility]) Red Blood Count 3.98 10 4.00-5.40 Below low normal [facility] ([facility]) Mean Corpuscular Volume 91.0 fl 80.0-96.0 Normal ( applies to non-numeric results) [facility] ([facility]) Mean Corpuscular Hemoglobin 30.9 pg 27.0-33.0 Norm al (applies to non-numeric results) [facility] ([facility]) Hematocrit 36.2 % 36.0-47.0 Normal (applies to non-numeric resul ts) [facility] ([facility]) Red Cell Distribution Width 19.2 % 11.5-14.5 Above high normal [facility] ([facility]) Mean Corpuscular HGB Conc 34.0 g/dL 32.0-36.5 Normal (applies to non-numeric results) [facility] ([facility]) Platelet Count, Automated 231 10 150-450 Normal (applies to non-numeric results) [facility] ([facility]) Nucleated Red Blood Cell % 0.9 % 0-0 Above high normal [facility] ([facility]) ID Date Data Source [id number] 11/16/2019 12:51:00 PM EDT [facility] ([facility]) Name Value Range Interpretation Code Description Data Aby rce(s) Supporting Document(s) Amylase [Enzymatic activity/volume] in Serum or Plasma 19 U/L 25-115 Below low normal [facility] ([facility]) Lipase [Enzymatic activity/volume] in Serum or Plasma 60 U/L 73-393 Below low normal [facility] ([facility]) ID Date Data Source [id number] 11/16/2019 12:51:00 PM EDT [facility] ([facility]) Name Value Range Interpretation Code Description Data Aby rce(s) Supporting Document(s) Glucose, Fasting 101 mg/dL 70-100 Above high normal [facility] ([facility]) Blood Urea Nitrogen 19 mg/dL 7-18 Above high normal [facility] ([facility]) Creatinine For GFR 1.37 mg/dL 0.55-1.30 Above high normal [facility] ([facility]) Glomerular Filtration Rate 40.6 Normal (applies to n on-numeric results) [facility]) <content>Units are mL/min/1.73 m2</content>
<content></content>
<content>Chronic Kidney Disease Staging per NKF:</content>
<content></content>
<content>Stage I & II GFR >=60 Normal to Mildly Decreased</content>
<content>Stage III GFR 30-59 Moderately Decreased</content>
<content>Stage IV GFR 15-29 Severely Decreased</content>
<content>Stage V GFR <15 Very Little GFR Left</content>
<content>ESRD GFR <15 on [employer]</content>
<content></content> Potassium Serum 3.8 meq/L 3.5-5.1 Normal (applies to non-numeric results) [facility] ([facility]) Testing was performed on a SLIGHTLY hemo lyzed specimen. Suggest recollection of specimen for more accurate test results. Sodium Level 134 meq/L 136-145 Below low normal [facility] ([facility]) Chloride Level 102 meq/L 98-107 Normal (applies to non-numeric r esults) [facility] ([facility]) Anion Gap 8 meq/L 8-16 Normal (applies to non-numeric resul ts) [facility] ([facility]) Carbon Dioxide Level 24 meq/L 21-32 Normal (applies to non-num grady results) [facility] ([facility]) Calcium Level 8.8 mg/dL 8.8-10.2 Normal (applies to non-numeric re sults) [facility] ([facility]) ID Date Data Source [id number] 11/16/2019 12:51:00 PM EDT [facility] ([facility]) Name Value Range Interpretation Code Description Data Aby rce(s) Supporting Document(s) Ast/Sgot 37 U/L 7-37 Normal (applies to non-numeric resul ts) [facility] ([facility]) Alkaline Phosphatase 169 U/L 45-117 Above high normal [facility] ([facility]) Alt/SGPT 37 U/L 12-78 Normal (applies to non-numeric resul ts) [facility] ([facility]) Total Protein 7.4 GM/DL 6.4-8.2 Normal (applies to non-numeric re sults) [facility] ([facility]) Bilirubin,Total 1.0 mg/dL 0.2-1.0 Normal (applies to non-numeric results) [facility] ([facility]) Bilirubin,Direct 0.5 mg/dL 0.0-0.2 Above high normal [facility] Albumin 3.9 GM/DL 3.2-5.2 Normal (applies to non-numeric resul ts) [facility] ([facility]) Albumin/Globulin Ratio 1.11 1.00-1.93 Normal (applies to non-numeric results) [facility]) ID Date Data Source [id number] 11/16/2019 12:51:00 PM EDT [facility] ([facility]) Name Value Range Interpretation Code Description Data Aby rce(s) Supporting Document(s) MB/CK Relative Index 2.00 Normal (applies to non-num grady results) [facility] ([facility]) <content>DIAGNOSIS CRITERIA</content>
<content>MMB ng/ml Relative Index (RI)</content>
<content>NON-AMI < or = 5 N/A</content>
<content>OLEA ZONE > 5 < or = 4</content>
<content>AMI > 5 > 4</content>
<content></content> CK-MB Value Mass < 1.0 ng/mL Normal (applies to non-numeri c results) [facility] ([facility]) CPK Creatine Phosphokinase 50 U/L 26-192 Teodora l (applies to non-numeric results) [facility] ([facility]) Troponin I < 0.02 ng/mL Normal (applies to non-numeric res ults) [facility]) <content>Troponin I Reference Interval f or Siemens [place] LOCI:</content>
<content></content>
<content>99th Percentile= 0.00-0.045 ng/ml</content>
<content></content>
<content>Risk Stratification:</content>
<content><= 0.10 ng/ml Decreased Risk for Adverse Clinical</content>
<content>Events.</content>
<content>0.10-1.50 ng/ml Increased Risk for Adverse Clinical</content>
<content>Events. Evaluation of additional</content>
<content>criterion and/or repeat testing in 2-6</content>
<content>hours is suggested to rule out myocardial</content>
<content>damage.</content>
<content>>= 1.50 ng/ml Indicative of Myocardial Injury.</content>
<content></content> ID Date Data Source [id number] 11/16/2019 12:51:00 PM EDT [facility] ([facility]) Name Value Range Interpretation Code Description Data Aby rce(s) Supporting Document(s) aPTT in Platelet poor plasma by Coagulation assay 25.8 s 25.0-38.4 Normal (applies to non-numeric results) [facility] ([facility]) Lactate [Mass/volume] in Serum or Plasma 2.5 mmol/L 0.4-2.0 Above upper panic limits [facility] ([facility]) Y/N query for Sepsis Lactate Rule: Y ID Date Data Source [id number] 11/16/2019 12:51:00 PM EDT [facility] ([facility]) Name Value Range Interpretation Code Description Data Aby rce(s) Supporting Document(s) Inr 1.32 Normal (applies to non-numeric resul ts) [facility] ([facility]) THERAPUTIC HUMAN INR VALUES INDICATIONS NORMAL RANGES PROPHYLAXIS/TREATMENT OF: VENOUS THROMBOSIS 2.0-3.0 PULMONARY EMBOLISM 2.0-3.0 PREVENTION OF SYSTEMIC EMBOLISM FROM: TISSUE HEART VALVES 2.0-3.0 ACUTE MYOCARDIAL INFARCTION 2.0-3.0 VALVULAR HEART DISEASE 2.0-3.0 ATRIAL FIBRILLATION 2.0-3.0 MECHANICAL VALVES(HIGH RISK) 2.5-3.5 RECURRENT MYOCARDIAL INFARCTION 2.5-3.5 Prothrombin Time 16.1 s 11.8-14.0 Above high normal [facility]) ID Date Data Source [id number] 11/04/2019 01:51:00 PM EDT [facility] ([facility]) Name Value Range Interpretation Code Description Data Aby rce(s) Supporting Document(s) Appearance, Urine RFX CLEAR Normal (applies to non-nu meric results) [facility] ([facility]) PH,Urine RFX 6.0 units 5.0-9.0 Normal (applies to non-numeric res ults) [facility] ([facility]) Specific [place] Auto RFX 1.010 1.002-1.035 Nor mal (applies to non-numeric results) [facility] ([facility]) Color, Urine RFX YELLOW Normal (applies to non-numeric results) [facility] ([facility]) Protein, Urine Auto RFX NEGATIVE mg/dL Normal ( applies to non-numeric results) [facility] ([facility]) Glucose, Urine (Ua) Auto RFX NEGATIVE mg/dL Nor mal (applies to non-numeric results) [facility] ([facility]) Ketone, Urine Auto RFX NEGATIVE mg/dL Normal (applies to non-numeric results) [facility] [facility]) Urobilinogen, Urine Auto RFX 0.2 mg/dL 0.0-2.0 Nor mal (applies to non-numeric results) [facility] ([facility]) Bilirubin, Urine Auto RFX NEGATIVE Normal (applies to no n-numeric results) [facility] ([facility]) Leukocyte Esterase Ur Auto RFX NEGATIVE N ormal (applies to non-numeric results) [facility] ([facility]) Nitrite, Urine Auto RFX NEGATIVE Normal (applies to non- numeric results) [facility] ([facility]) Blood, Urine Blood RFX NEGATIVE Normal (applies to non-n umeric results) [facility] ([facility]) Bacteria, Urine Auto RFX 1+ Above high normal [facility] ([facility]) WBC, Urine Auto RFX 5 /HPF 0-3 Above high normal [facility] ([facility]) RBC, Urine Auto RFX 2 /HPF 0-3 Normal (applies to non-nume clarissa results) [facility] ([facility]) Squam Epithelial Cell Ur Aurfx 1 /HPF 0-6 N ormal (applies to non-numeric results) [facility] ([facility]) Hyaline Cast, Urine Auto RFX 0 /LPF 0-1 Normal (appl ies to non-numeric results) [facility] ([facility]) Mucus, Urine RFX SMALL Normal (applies to non-numeric results) [facility] ([facility]) ID Date Data Source [id number] 11/04/2019 01:51:00 PM EDT [facility] ([facility]) Name Value Range Interpretation Code Description Data Aby rce(s) Supporting Document(s) Urine Culture FULL REPORT IN L <SEE NOTE> Norm al (applies to non-numeric results) [facility] ([facility]) FULL REPORT IN LAB NOTES ([facility] ). NO GROWTH CLINICAL SIGNIFICANCE 1 ORGANISM ID Date Data Source [id number] 11/04/2019 08:00:00 AM EDT [facility] ([facility]) Name Value Range Interpretation Code Description Data Aby rce(s) Supporting Document(s) White Blood Count 33.1 10 4.0-10.0 Above upper panic limits [facility] ([facility]) Red Blood Count 3.26 10 4.00-5.40 Below low normal [facility] ([facility]) Hematocrit 29.3 % 36.0-47.0 Below low normal [facility] ( [facility]) Hemoglobin 10.1 g/dL 12.0-15.5 Below low normal [facility] ( [facility]) Mean Corpuscular HGB Conc 34.5 g/dL 32.0-36.5 Normal (applies to non-numeric results) [facility] ([facility]) Mean Corpuscular Hemoglobin 31.0 pg 27.0-33.0 Norm al (applies to non-numeric results) [facility] ([facility]) Mean Corpuscular Volume 89.9 fl 80.0-96.0 Normal ( applies to non-numeric results) [facility] ([facility]) Platelet Count, Automated 416 10 150-450 Normal (applies to non-numeric results) [facility] ([facility]) Nucleated Red Blood Cell % 0.3 % 0-0 Above high normal [facility] ([facility]) Red Cell Distribution Width 17.1 % 11.5-14.5 Above high normal [facility] ([facility]) ID Date Data Source [id number] 11/04/2019 08:00:00 AM EDT [facility] ([facility]) Name Value Range Interpretation Code Description Data Aby rce(s) Supporting Document(s) Neutrophils % 65.8 % 36.0-66.0 Normal (applies to non-numeric re sults) [facility] ([facility]) Lymph % 13.6 % 24.0-44.0 Below low normal [facility] ( [facility]) [place] % 5.5 % 0.0-5.0 Above high normal [facility] ([facility]) Eos % 0.1 % 0.0-3.0 Normal (applies to non-numeric resul ts) [facility] ([facility]) Neutrophils # 21.8 10 1.5-8.5 Above high normal [facility] ([facility]) Immature Granulocyte % 14.9 % 0-3.0 Above high normal [facility] ([facility]) Baso % 0.1 % 0.0-1.0 Normal (applies to non-numeric resul ts) [facility] ([facility]) Eos # 0.0 10 0.0-0.5 Normal (applies to non-numeric resul ts) [facility] ([facility]) Baso # 0.0 10 0.0-0.2 Normal (applies to non-numeric resul ts) [facility] ([facility]) Lymph # 4.5 10 1.5-5.0 Normal (applies to non-numeric resul ts) [facility] ([facility]) [place] # 1.8 10 0.0-0.8 Above high normal [facility] ([facility]) ID Date Data Source [id number] 11/04/2019 08:00:00 AM EDT [facility] ([facility]) Name Value Range Interpretation Code Description Data Aby rce(s) Supporting Document(s) Magnesium [Mass/volume] in Serum or Plasma 1.7 mg/dL 1.8-2.4 [place] w low normal [facility] ([facility]) ID Date Data Source [id number] 11/04/2019 08:00:00 AM EDT [facility] ([facility]) Name Value Range Interpretation Code Description Data Aby rce(s) Supporting Document(s) Glucose, Fasting 104 mg/dL 70-100 Above high normal [facility] ([facility]) Creatinine For GFR 1.24 mg/dL 0.55-1.30 Normal (applies to non -numeric results) [facility] ([facility]) Blood Urea Nitrogen 34 mg/dL 7-18 Above high normal [facility] ([facility]) Sodium Level 139 meq/L 136-145 Normal (applies to non-numeric res ults) [facility] ([facility]) Potassium Serum 2.8 meq/L 3.5-5.1 Below lower panic limits [facility] ([facility]) Glomerular Filtration Rate 45.5 Normal (applies to n on-numeric results) [facility] ([facility]) <content>Units are mL/min/1.73 m2</content>
<content></content>
<content>Chronic Kidney Disease Staging per NKF:</content>
<content></content>
<content>Stage I & II GFR >=60 Normal to Mildly Decreased</content>
<content>Stage III GFR 30- 59 Moderately Decreased</content>
<content>Stage IV GFR 15-29 Severely Decreased</content>
<content>Stage V GFR <15 Very Little GFR Left</content>
<content>ESRD GFR <15 on FARM MANAGEMENT SUPER[employer]</content>
<content></content> Chloride Level 106 meq/L 98-107 Normal (applies to non-numeric r esults) [facility] ([facility]) Carbon Dioxide Level 24 meq/L 21-32 Normal (applies to non-num grady results) [facility] ([facility]) Anion Gap 9 meq/L 8-16 Normal (applies to non-numeric resul ts) [facility] ([facility]) Alt/SGPT 29 U/L 12-78 Normal (applies to non-numeric resul ts) [facility] ([facility]) Ast/Sgot 20 U/L 7-37 Normal (applies to non-numeric resul ts) [facility] ([facility]) Calcium Level 8.0 mg/dL 8.8-10.2 Below low normal [facility] ([facility]) Total Protein 6.4 GM/DL 6.4-8.2 Normal (applies to non-numeric re sults) [facility] ([facility]) Alkaline Phosphatase 188 U/L 45-117 Above high normal [facility] ([facility]) Bilirubin,Total 1.3 mg/dL 0.2-1.0 Above high normal [facility] ([facility]) Albumin/Globulin Ratio 0.73 1.00-1.93 Below low normal [facility] ([facility]) Albumin 2.7 GM/DL 3.2-5.2 Below low normal [facility] ( [facility]) ID Date Data Source [id number] 11/04/2019 08:00:00 AM EDT [facility] ([facility]) Name Value Range Interpretation Code Description Data Aby rce(s) Supporting Document(s) Cancer Ag 19-9 [Presence] in Serum or Plasma 1880.3 U/ML A aguilar high normal [facility] ([facility]) THE CA 19-9 ASSAY IS PERFORMED ON THE AppticlesAUR BY CHEMILUMINESCENCE AND SHOULD NOT BE COMPARED INTERCHANGEABLY WITH OTHER METHODS. IT SHOULD NOT BE USED ALONE A SCREENING TEST OR DIAGNOSIS FOR THE PRESENCE OR ABSENCE OF MALIGNANT DISEASE. PREDICTIONS OF DISEASE RECURRENCE SHOULD NOT BE BASED SOLELY ON VALUES OBTAINED FROM SERIAL PATIENT SERUM VALUES. ID Date Data Source [id number] 11/01/2019 01:48:00 PM EDT [facility] ([facility]) Name Value Range Interpretation Code Description Data Aby rce(s) Supporting Document(s) Color, Urine RFX LLUVIA Normal (applies to non-numeric results) [facility] ([facility]) PH,Urine RFX 5.0 units 5.0-9.0 Normal (applies to non-numeric res ults) [facility] ([facility]) Appearance, Urine RFX CLOUDY Above high normal [facility] ([facility]) Glucose, Urine (Ua) Auto RFX NEGATIVE mg/dL Nor mal (applies to non-numeric results) [facility] ([facility]) Specific [place] Ur Auto RFX 1.026 1.002-1.035 Nor mal (applies to non-numeric results) [facility] ([facility]) Protein, Urine Auto RFX 2+ mg/dL Above high normal [facility] ([facility]) Urobilinogen, Urine Auto RFX 0.2 mg/dL 0.0-2.0 Nor mal (applies to non-numeric results) [facility] ([facility]) Ketone, Urine Auto RFX NEGATIVE mg/dL Normal (applies to non-numeric results) [facility] ([facility]) Bilirubin, Urine Auto RFX 1+ Above high normal [facility] ([facility]) Leukocyte Esterase Ur Auto RFX 1+ Above high teodora l [facility] ([facility]) Blood, Urine Blood RFX 1+ Above high normal [facility] ([facility]) Nitrite, Urine Auto RFX NEGATIVE Normal (applies to non- numeric results) [facility] ([facility]) RBC, Urine Auto RFX 10 /HPF 0-3 Above high normal [facility] ([facility]) Bacteria, Urine Auto RFX 1+ Above high normal [facility] ([facility]) WBC, Urine Auto RFX 86 /HPF 0-3 Above high normal [facility] ([facility]) Transitional Epithelial AU RFX 1 /HPF Normal (ap plies to non-numeric results) [facility] ([facility]) Laboratory test finding (navigational concept) 1 /HPF Normal (applies to non- numeric results) [facility] ([facility]) Squam Epithelial Cell Ur Aurfx 10 /HPF 0-6 N ormal (applies to non-numeric results) [facility] ([facility]) Granular Cast, Urine Auto RFX 5 /LPF Normal (shayy lies to non-numeric results) [facility] ([facility]) Hyaline Cast, Urine Auto RFX 7 /LPF 0-1 Normal (appl ies to non-numeric results) [facility] ([facility]) Mucus, Urine RFX SMALL Normal (applies to non-numeric results) [facility] ([facility]) Amorphous Sediment RFX SMALL Above high normal [facility] ([facility]) ID Date Data Source [id number] 11/01/2019 01:48:00 PM EDT [facility] ([facility]) Name Value Range Interpretation Code Description Data Aby rce(s) Supporting Document(s) Reflex Urine Culture FULL REPORT IN L <SEE NOTE> Normal (applies to non- numeric results) [facility] ([facility]) <content>FULL REPORT IN LAB NOTES ([facility] a nd [facility]).</content>
<content></content>
<content>ORGANISM 1: KLEBSIELLA OZAENAE</content>
<content></content>
<content>COLONY COUNT >100,000</content>
<content></content>
<content></content>
<content> ORGANISM 1: KLEBSIELLA OZAENAE</content>
<content></content>
<content> KLEBSIELLA OZAENAE: REACTION</content>
<content>TRIMETHOPRIM/SULFAMETHOXAZOLE IV 160mg TMP & 800mg SMXq6h <=20 S</content>
<content> TRIMETHOPRIM/SULFAMETHOXAZOLE PO Bactrim DS Bid <=20 S</content>
<content>AMPICILLIN IV 500mg q6h >=32 R</content>
<content>AMPICILLIN PO 500mg q6h fasting >=32 R</content>
<content>GENTAMICIN IV 80mg q8h <=1 S</content>
<content>NITROFURANTOIN PO 100mg BID 64 I</content>
<content>CEFAZOLIN IV 1gm q8h <=4 S</content>
<content>LEVOFLOXACIN IV 500mg qd <=0.12 S</content>
<content>LEVOFLOXACIN PO 250mg qd <=0.12 S</content>
<content>LEVOFLOXACIN PO 500mg qd <=0.12 S</content>
<content>TOBRAMYCIN IV 80mg q8h <=1 S</content>
<content> CEFTRIAXONE IV 1gm q24h <=1 S</content>
<content>CEFTAZIDIME IV 1gm q8h <=1 S</content>
<content>AMPICILLIN/SULBACTAM IV 1.5g q6h 8 S</content>
<content>PIPERACILLIN/TAZOBACTAM IV 2.25 gm q6h 16 S</content>
<content>AZTREONAM IV 1gm q8h <=1 S</content>
<content>ERTAPENEM IV 1gm qd <=0.5 S</content>
<content>MEROPENEM IV 1 gm q8h <=0.25 S</content>
<content>MEROPENEM IV 500 mg q8h <=0.25 S</content>
<content>TIGECYCLINE IV 50mg q12h 2 S</content>
<content>CEFEPIME IV 1 gm q12h <=1 S</content>
<content>CEFEPIME IV 2 gm q12h <=1 S</content>
<content>EXTD BRD SPCTRM BETA LACTAMASE IV NEGATIVE FOR ESBL</content>
<content></content> ID Date Data Source [id number] 11/01/2019 12:41:00 PM EDT [facility] ([facility]) Name Value Range Interpretation Code Description Data Aby rce(s) Supporting Document(s) Laboratory test finding (navigational concept) 36.0 % 3 8.0-51.0 Below low normal [facility] ([facility]) Laboratory test finding (navigational concept) 3.3 meq/L 3 .5-5.1 Below low normal [facility] ([facility]) Laboratory test finding (navigational concept) 137 mg/dL 7 0-105 Above high normal [facility] ([facility]) Laboratory test finding (navigational concept) 134 meq/L 1 36-145 Below low normal [facility] ([facility]) Laboratory test finding (navigational concept) 4.7 mg/dL 4 .5-5.3 Normal (applies to non-numeric results) [facility] ([facility]) Laboratory test finding (navigational concept) 97 meq/L 98-109 Below low normal [facility] ([facility]) Laboratory test finding (navigational concept) 25.0 MM/L 2 3.0-27.0 Normal (applies to non-numeric results) [facility] ([facility]) Laboratory test finding (navigational concept) 1.3 mg/dL 0 .6-1.3 Normal (applies to non-numeric results) [facility] ([facility]) Laboratory test finding (navigational concept) 25 mg/dL 8 -26 Normal (applies to non-numeric results) [facility] ([facility]) ID Date Data Source [id number] 11/01/2019 12:40:00 PM EDT [facility] ([facility]) Name Value Range Interpretation Code Description Data Aby rce(s) Supporting Document(s) White Blood Count 16.9 10 4.0-10.0 Above high normal [facility] ([facility]) Red Blood Count 3.93 10 4.00-5.40 Below low normal [facility] ([facility]) Hematocrit 35.2 % 36.0-47.0 Below low normal [facility] ( [facility]) Hemoglobin 12.0 g/dL 12.0-15.5 Normal (applies to non-numeric resul ts) [facility] ([facility]) Mean Corpuscular Volume 89.6 fl 80.0-96.0 Normal ( applies to non-numeric results) [facility] ([facility]) Mean Corpuscular Hemoglobin 30.5 pg 27.0-33.0 Norm al (applies to non-numeric results) [facility] ([facility]) Mean Corpuscular HGB Conc 34.1 g/dL 32.0-36.5 Normal (applies to non-numeric results) [facility] ([facility]) Nucleated Red Blood Cell % 0.3 % 0-0 Above high normal [facility] ([facility]) Red Cell Distribution Width 16.6 % 11.5-14.5 Above high normal [facility] ([facility]) Platelet Count, Automated 491 10 150-450 Above high normal [facility] ([facility]) ID Date Data Source [id number] 11/01/2019 12:40:00 PM EDT [facility] ([facility]) Name Value Range Interpretation Code Description Data Aby rce(s) Supporting Document(s) Prothrombin Time 20.3 s 11.8-14.0 Above high normal [facility] Inr 1.76 Normal (applies to non-numeric resul ts) [facility] ([facility]) THERAPUTIC HUMAN INR VALUES INDICATIONS NORMAL RANGES PROPHYLAXIS/TREATMENT OF: VENOUS THROMBOSIS 2.0-3.0 PULMONARY EMBOLISM 2.0-3.0 PREVENTION OF SYSTEMIC EMBOLISM FROM: TISSUE HEART VALVES 2.0-3.0 ACUTE MYOCARDIAL INFARCTION 2.0-3.0 VALVULAR HEART DISEASE 2.0-3.0 ATRIAL FIBRILLATION 2.0-3.0 MECHANICAL VALVES(HIGH RISK) 2.5-3.5 RECURRENT MYOCARDIAL INFARCTION 2.5-3.5 ID Date Data Source [id number] 11/01/2019 12:40:00 PM EDT [facility] ([facility]) Name Value Range Interpretation Code Description Data Aby rce(s) Supporting Document(s) aPTT in Platelet poor plasma by Coagulation assay 32.0 s 25.0-38.4 Normal (applies to non-numeric results) [facility] ([facility]) ID Date Data Source [id number] 11/01/2019 12:40:00 PM EDT [facility] ([facility]) Name Value Range Interpretation Code Description Data Aby rce(s) Supporting Document(s) Lymphocytes 33 % 16-44 Normal (applies to non-numeric resu lts) [facility] ([facility]) Neutrophils 54 % 28-66 Normal (applies to non-numeric resu lts) [facility] ([facility]) Bands 11 % Normal (applies to non-numeric resul ts) [facility] ([facility]) Monocytes 1 % 0-5 Normal (applies to non-numeric resul ts) [facility] ([facility]) Atypical Lymph 1 % 0-5 Normal (applies to non-numeric r esults) [facility] ([facility]) ID Date Data Source [id number] 11/01/2019 12:40:00 PM EDT [facility] ([facility]) Name Value Range Interpretation Code Description Data Aby rce(s) Supporting Document(s) Platelets [#/volume] in Blood by Estimate INCREASED Normal (applies to non- numeric results) [facility] ([facility]) ID Date Data Source [id number] 11/01/2019 12:40:00 PM EDT [facility] ([facility]) Name Value Range Interpretation Code Description Data Aby rce(s) Supporting Document(s) Ast/Sgot 27 U/L 7-37 Normal (applies to non-numeric resul ts) [facility] ([facility]) Alt/SGPT 40 U/L 12-78 Normal (applies to non-numeric resul ts) [facility] ([facility]) Bilirubin,Total 1.5 mg/dL 0.2-1.0 Above high normal [facility] ([facility]) Alkaline Phosphatase 216 U/L 45-117 Above high normal [facility] ([facility]) Bilirubin,Direct 1.4 mg/dL 0.0-0.2 Above high normal [facility] ([facility]) Total Protein 6.9 GM/DL 6.4-8.2 Normal (applies to non-numeric re sults) [facility] ([facility]) Albumin/Globulin Ratio 0.77 1.00-1.93 Below low normal [facility] ([facility]) Albumin 3.0 GM/DL 3.2-5.2 Below low normal [facility] ( [facility]) ID Date Data Source [id number] 11/01/2019 12:40:00 PM EDT [facility] ([facility]) Name Value Range Interpretation Code Description Data Aby rce(s) Supporting Document(s) Glucose, Fasting 130 mg/dL 70-100 Above high normal [facility] ([facility]) Blood Urea Nitrogen 26 mg/dL 7-18 Above high normal [facility] ([facility]) Creatinine For GFR 1.33 mg/dL 0.55-1.30 Above high normal [facility] ([facility]) Glomerular Filtration Rate 42.0 Normal (applies to n on-numeric results) [facility] ([facility]) <content>Units are mL/min/1.73 m2</content>
<content></content>
<content>Chronic Kidney Disease Staging per NKF:</content>
<content></content>
<content>Stage I & II GFR >=60 Normal to Mildly Decreased</content>
<content>Stage III GFR 30- 59 Moderately Decreased</content>
<content>Stage IV GFR 15-29 Severely Decreased</content>
<content>Stage V GFR <15 Very Little GFR Left</content>
<content>ESRD GFR <15 on FARM MANAG[employer] SUPER[employer]</content>
<content></content> Chloride Level 98 meq/L 98-107 Normal (applies to non-numeric r esults) [facility] ([facility]) Sodium Level 135 meq/L 136-145 Below low normal [facility] ([facility]) Potassium Serum 3.5 meq/L 3.5-5.1 Normal (applies to non-numeric results) [facility] ([facility]) Calcium Level 9.3 mg/dL 8.8-10.2 Normal (applies to non-numeric re sults) [facility] ([facility]) Carbon Dioxide Level 25 meq/L 21-32 Normal (applies to non-num grady results) [facility] ([facility]) Anion Gap 12 meq/L 8-16 Normal (applies to non-numeric resul ts) [facility] ([facility]) ID Date Data Source [id number] 11/01/2019 12:40:00 PM EDT [facility] ([facility]) Name Value Range Interpretation Code Description Data Aby rce(s) Supporting Document(s) Amylase [Enzymatic activity/volume] in Serum or Plasma 21 U/L 25-115 Below low normal [facility] ([facility]) Lipase [Enzymatic activity/volume] in Serum or Plasma 108 U/L 73-393 Normal (applies to non-numeric results) [facility] ([facility]) ID Date Data Source [id number] 10/21/2019 09:19:00 AM EDT [facility] ([facility]) Name Value Range Interpretation Code Description Data Aby rce(s) Supporting Document(s) Cancer Ag 19-9 [Presence] in Serum or Plasma 2795.7 U/ML A aguilar high normal [facility] ([facility]) THE CA 19-9 ASSAY IS PERFORMED ON THE AppticlesAUR BY CHEMILUMINESCENCE AND SHOULD NOT BE COMPARED INTERCHANGEABLY WITH OTHER METHODS. IT SHOULD NOT BE USED ALONE A SCREENING TEST OR DIAGNOSIS FOR THE PRESENCE OR ABSENCE OF MALIGNANT DISEASE. PREDICTIONS OF DISEASE RECURRENCE SHOULD NOT BE BASED SOLELY ON VALUES OBTAINED FROM SERIAL PATIENT SERUM VALUES. ID Date Data Source [id number] 10/21/2019 08:04:00 AM EDT [facility] ([facility]) Name Value Range Interpretation Code Description Data Aby rce(s) Supporting Document(s) White Blood Count 15.7 10 4.0-10.0 Above high normal [facility] ([facility]) Red Blood Count 3.53 10 4.00-5.40 Below low normal [facility] ([facility]) Hemoglobin 10.7 g/dL 12.0-15.5 Below low normal [facility] ( [facility]) Hematocrit 32.5 % 36.0-47.0 Below low normal [facility] ( [facility]) Mean Corpuscular Volume 92.1 fl 80.0-96.0 Normal ( applies to non-numeric results) [facility] ([facility]) Mean Corpuscular Hemoglobin 30.3 pg 27.0-33.0 Norm al (applies to non-numeric results) [facility] ([facility]) Mean Corpuscular HGB Conc 32.9 g/dL 32.0-36.5 Normal (applies to non-numeric results) [facility] ([facility]) Platelet Count, Automated 236 10 150-450 Normal (applies to non-numeric results) [facility] ([facility]) Red Cell Distribution Width 17.1 % 11.5-14.5 Above high normal [facility] ([facility]) Nucleated Red Blood Cell % 0.3 % 0-0 Above high normal [facility] ([facility]) ID Date Data Source [id number] 10/21/2019 08:04:00 AM EDT [facility] ([facility]) Name Value Range Interpretation Code Description Data Aby rce(s) Supporting Document(s) Neutrophils % 56.6 % 36.0-66.0 Normal (applies to non-numeric re sults) [facility] ([facility]) Eos % 0.5 % 0.0-3.0 Normal (applies to non-numeric resul ts) [facility] ([facility]) Lymph % 22.3 % 24.0-44.0 Below low normal [facility] ( [facility]) [place] % 9.7 % 0.0-5.0 Above high normal [facility] ([facility]) Baso % 0.6 % 0.0-1.0 Normal (applies to non-numeric resul ts) [facility] ([facility]) Immature Granulocyte % 10.3 % 0-3.0 Above high normal [facility] ([facility]) Neutrophils # 8.9 10 1.5-8.5 Above high normal [facility] NT ([facility]) [place] # 1.5 10 0.0-0.8 Above high normal [facility] ([facility]) Eos # 0.1 10 0.0-0.5 Normal (applies to non-numeric resul ts) [facility] ([facility]) Lymph # 3.5 10 1.5-5.0 Normal (applies to non-numeric resul ts) [facility] ([facility]) Baso # 0.1 10 0.0-0.2 Normal (applies to non-numeric resul ts) [facility] ([facility]) ID Date Data Source [id number] 10/21/2019 08:04:00 AM EDT [facility] ([facility]) Name Value Range Interpretation Code Description Data Aby rce(s) Supporting Document(s) Glucose, Fasting 111 mg/dL 70-100 Above high normal M [facility] ([facility]) Blood Urea Nitrogen 12 mg/dL 7-18 Normal (applies to non-nume clarissa results) [facility] ([facility]) Creatinine For GFR 0.61 mg/dL 0.55-1.30 Normal (applies to non -numeric results) [facility] ([facility]) Glomerular Filtration Rate > 60.0 Normal (applies to n on-numeric results) [facility] ([facility]) <content>Units are mL/min/1.73 m2</content>
<content></content>
<content>Chronic Kidney Disease Staging per NKF:</content>
<content></content>
<content>Stage I & II GFR >=60 Normal to Mildly Decreased</content>
<content>Stage III GFR 30- 59 Moderately Decreased</content>
<content>Stage IV GFR 15-29 Severely Decreased</content>
<content>Stage V GFR <15 Very Little GFR Left</content>
<content>ESRD GFR <15 on [employer]</content>
<content></content> Chloride Level 110 meq/L 98-107 Above high normal [facility] ([facility]) Potassium Serum 2.9 meq/L 3.5-5.1 Below lower panic limits [facility] ([facility]) Sodium Level 144 meq/L 136-145 Normal (applies to non-numeric res ults) [facility] ([facility]) Calcium Level 8.2 mg/dL 8.8-10.2 Below low normal [facility] ([facility]) Anion Gap 7 meq/L 8-16 Below low normal [facility] ( [facility]) Carbon Dioxide Level 27 meq/L 21-32 Normal (applies to non-num grady results) [facility] ([facility]) Alt/SGPT 100 U/L 12-78 Above high normal [facility] ([facility]) Ast/Sgot 43 U/L 7-37 Above high normal [facility] ([facility]) Alkaline Phosphatase 460 U/L 45-117 Above high normal [facility] ([facility]) Total Protein 6.2 GM/DL 6.4-8.2 Below low normal [facility] ([facility]) Bilirubin,Total 3.5 mg/dL 0.2-1.0 Above high normal [facility] ([facility]) Albumin/Globulin Ratio 1.00 1.00-1.93 Normal (applies to non-numeric results) [facility] ([facility]) Albumin 3.1 GM/DL 3.2-5.2 Below low normal [facility] ( [facility]) ID Date Data Source [id number] 10/13/2019 01:18:00 PM EST [facility] ([facility]) Name Value Range Interpretation Code Description Data Aby rce(s) Supporting Document(s) Lactate [Mass/volume] in Serum or Plasma 0.7 mmol/L 0.4-2.0 Normal (applies to non-numeric results) [facility] ([facility]) Y/N query for Sepsis Lactate Rule: Y ID Date Data Source [id number] 10/13/2019 12:28:00 PM EST [facility] ([facility]) Name Value Range Interpretation Code Description Data Aby rce(s) Supporting Document(s) Ast/Sgot 210 U/L 7-37 Above high normal [facility] ([facility]) Alt/SGPT 264 U/L 12-78 Above high normal [facility] ([facility]) Bilirubin,Total 20.2 mg/dL 0.2-1.0 Above upper panic limits [facility] ([facility]) Bilirubin,Direct 13.1 mg/dL 0.0-0.2 Above high normal [facility] ([facility]) Alkaline Phosphatase 986 U/L 45-117 Above high normal [facility] ([facility]) Total Protein 6.3 GM/DL 6.4-8.2 Below low normal [facility] ([facility]) Albumin 3.2 GM/DL 3.2-5.2 Normal (applies to non-numeric resul ts) [facility] ([facility]) Albumin/Globulin Ratio 1.03 1.00-1.93 Normal (applies to non-numeric results) [facility] ([facility]) ID Date Data Source [id number] 10/13/2019 12:28:00 PM EST [facility] ([facility]) Name Value Range Interpretation Code Description Data Aby rce(s) Supporting Document(s) Glucose, Fasting 111 mg/dL 70-100 Above high normal [facility] ([facility]) Blood Urea Nitrogen 26 mg/dL 7-18 Above high normal [facility] ([facility]) Glomerular Filtration Rate > 60.0 Normal (applies to n on-numeric results) [facility] ([facility]) <content>Units are mL/min/1.73 m2</content>
<content></content>
<content>Chronic Kidney Disease Staging per NKF:</content>
<content></content>
<content>Stage I & II GFR >=60 Normal to Mildly Decreased</content>
<content>Stage III GFR 30- 59 Moderately Decreased</content>
<content>Stage IV GFR 15-29 Severely Decreased</content>
<content>Stage V GFR <15 Very Little GFR Left</content>
<content>ESRD GFR <15 on [employer]</content>
<content></content> Creatinine For GFR 0.78 mg/dL 0.55-1.30 Normal (applies to non -numeric results) [facility] ([facility]) Sodium Level 138 meq/L 136-145 Normal (applies to non-numeric res ults) [facility] ([facility]) Potassium Serum 4.7 meq/L 3.5-5.1 Normal (applies to non-numeric results) [facility] ([facility]) Testing was performed on an icteric spec imen. Chloride Level 104 meq/L 98-107 Normal (applies to non-numeric r esults) [facility] ([facility]) Calcium Level 9.1 mg/dL 8.8-10.2 Normal (applies to non-numeric re sults) [facility] ([facility]) Anion Gap 9 meq/L 8-16 Normal (applies to non-numeric resul ts) [facility] ([facility]) Carbon Dioxide Level 25 meq/L 21-32 Normal (applies to non-num grady results) [facility] ([facility]) ID Date Data Source [id number] 10/13/2019 12:28:00 PM EST [facility] ([facility]) Name Value Range Interpretation Code Description Data Aby rce(s) Supporting Document(s) Lipase [Enzymatic activity/volume] in Serum or Plasma 143 U/L 73-393 Normal (applies to non-numeric results) [facility] ([facility]) ID Date Data Source [id number] 10/13/2019 12:28:00 PM EST [facility] ([facility]) Name Value Range Interpretation Code Description Data Aby rce(s) Supporting Document(s) CPK Creatine Phosphokinase 114 U/L 26-192 Teodora l (applies to non-numeric results) [facility] ([facility]) CK-MB Value Mass < 1.0 ng/mL Normal (applies to non-numeri c results) [facility] ([facility]) MB/CK Relative Index 0.88 Normal (applies to non-num grady results) [facility] ([facility]) <content>DIAGNOSIS CRITERIA</content>
<content>MMB ng/ml Relative Index (RI)</content>
<content>NON-AMI < or = 5 N/A</content>
<content>OLEA ZONE > 5 < or = 4</content>
<content>AMI > 5 > 4</content>
<content></content> Troponin I < 0.02 ng/mL Normal (applies to non-numeric res ults) [facility] ([facility]) <content>Troponin I Reference Interval f or Siemens [place] LOCI:</content>
<content></content>
<content>99th Percentile= 0.00-0.045 ng/ml</content>
<content></content>
<content>Risk Stratification:</content>
<content><= 0.10 ng/ml Decreased Risk for Adverse Clinical</content>
<content>Events.</content>
<content>0.10-1.50 ng/ml Increased Risk for Adverse Clinical</content>
<content>Events. Evaluation of additional</content>
<content>criterion and/or repeat testing in 2-6</content>
<content>hours is suggested to rule out myocardial</content>
<content>damage.</content>
<content>>= 1.50 ng/ml Indicative of Myocardial Injury.</content>
<content></content> ID Date Data Source [id number] 10/13/2019 12:28:00 PM EST [facility] ([facility]) Name Value Range Interpretation Code Description Data Aby rce(s) Supporting Document(s) Urate [Mass/volume] in Serum or Plasma 3.0 mg/dL 2.6-6.0 Normal (applies to non- numeric results) [facility] ([facility]) Phosphate [Moles/volume] in Serum or Plasma 3.3 mg/dL 2.5- 4.9 Normal (applies to non-numeric results) [facility] ([facility]) ID Date Data Source [id number] 10/13/2019 12:26:00 PM EST [facility] ([facility]) Name Value Range Interpretation Code Description Data Aby rce(s) Supporting Document(s) White Blood Count 12.8 10 4.0-10.0 Above high normal [facility] ([facility]) Hemoglobin 11.6 g/dL 12.0-15.5 Below low normal [facility] ( [facility]) Red Blood Count 3.86 10 4.00-5.40 Below low normal [facility] ([facility]) Hematocrit 34.7 % 36.0-47.0 Below low normal [facility] ( [facility]) Mean Corpuscular HGB Conc 33.4 g/dL 32.0-36.5 Normal (applies to non-numeric results) [facility] ([facility]) Mean Corpuscular Volume 89.9 fl 80.0-96.0 Normal ( applies to non-numeric results) [facility] ([facility]) Mean Corpuscular Hemoglobin 30.1 pg 27.0-33.0 Norm al (applies to non-numeric results) [facility] ([facility]) Nucleated Red Blood Cell % 0.0 % 0-0 Normal (applies to n on-numeric results) [facility] ([facility]) Platelet Count, Automated 194 10 150-450 Normal (applies to non-numeric results) [facility] ([facility]) Red Cell Distribution Width 16.9 % 11.5-14.5 Above high normal [facility] ([facility]) ID Date Data Source [id number] 10/13/2019 12:26:00 PM EST [facility] ([facility]) Name Value Range Interpretation Code Description Data Aby rce(s) Supporting Document(s) Bands 2 % Normal (applies to non-numeric resul ts) [facility] ([facility]) Neutrophils 82 % 28-66 Above high normal [facility] ([facility]) Lymphocytes 15 % 16-44 Below low normal [facility] ([facility]) Myelocytes 1 % 0-0 Above high normal [facility] ([facility]) Anisocytosis 1+ Normal (applies to non-numeric res ults) [facility] ([facility]) Laboratory test finding (navigational concept) 1+ Normal (applies to non- numeric results) [facility] ([facility]) Toxic Granulation 1+ Normal (applies to non-numeri c results) [facility] ([facility]) ID Date Data Source [id number] 10/13/2019 12:26:00 PM EST [facility] ([facility]) Name Value Range Interpretation Code Description Data Aby rce(s) Supporting Document(s) Platelets [#/volume] in Blood by Estimate NORMAL Normal (applies to non- numeric results) [facility] ([facility]) ID Date Data Source [id number] 10/07/2019 08:04:00 AM EST [facility] ([facility]) Name Value Range Interpretation Code Description Data Aby rce(s) Supporting Document(s) Magnesium [Mass/volume] in Serum or Plasma 2.0 mg/dL 1.8-2 .4 Normal (applies to non-numeric results) [facility] ([facility]) ID Date Data Source [id number] 10/07/2019 08:04:00 AM EST [facility] ([facility]) Name Value Range Interpretation Code Description Data Aby rce(s) Supporting Document(s) Glucose, Fasting 136 mg/dL 70-100 Above high normal [facility] ([facility]) Creatinine For GFR 0.55 mg/dL 0.55-1.30 Normal (applies to non -numeric results) [facility] ([facility]) Blood Urea Nitrogen 13 mg/dL 7-18 Normal (applies to non-nume clarissa results) [facility] ([facility]) Glomerular Filtration Rate > 60.0 Normal (applies to n on-numeric results) [facility] ([facility]) <content>Units are mL/min/1.73 m2</content>
<content></content>
<content>Chronic Kidney Disease Staging per NKF:</content>
<content></content>
<content>Stage I & II GFR >=60 Normal to Mildly Decreased</content>
<content>Stage III GFR 30- 59 Moderately Decreased</content>
<content>Stage IV GFR 15-29 Severely Decreased</content>
<content>Stage V GFR <15 Very Little GFR Left</content>
<content>ESRD GFR <15 on [employer]ARM [employer]NAG[employer] SUPER[employer]</content>
<content></content> Potassium Serum 4.0 meq/L 3.5-5.1 Normal (applies to non-numeric results) [facility] ([facility]) Sodium Level 140 meq/L 136-145 Normal (applies to non-numeric res ults) [facility] ([facility]) Carbon Dioxide Level 25 meq/L 21-32 Normal (applies to non-num grady results) [facility] ([facility]) Anion Gap 6 meq/L 8-16 Below low normal [facility] ( [facility]) Chloride Level 109 meq/L 98-107 Above high normal [facility] ([facility]) Calcium Level 8.9 mg/dL 8.8-10.2 Normal (applies to non-numeric re sults) [facility] ([facility]) Alt/SGPT 261 U/L 12-78 Above high normal [facility] ([facility]) Ast/Sgot 178 U/L 7-37 Above high normal [facility] ([facility]) Bilirubin,Total 10.4 mg/dL 0.2-1.0 Above high normal [facility] ([facility]) Total Protein 6.5 GM/DL 6.4-8.2 Normal (applies to non-numeric re sults) [facility] ([facility]) Alkaline Phosphatase 921 U/L 45-117 Above high normal [facility] ([facility]) Albumin 3.2 GM/DL 3.2-5.2 Normal (applies to non-numeric resul ts) [facility] ([facility]) Albumin/Globulin Ratio 0.97 1.00-1.93 Below low normal [facility] ([facility]) ID Date Data Source [id number] 10/07/2019 08:04:00 AM EST [facility] Name Value Range Interpretation Code Description Data Aby rce(s) Supporting Document(s) Neutrophils % 67.7 % 36.0-66.0 Above high normal [facility] NT ([facility]) [place] % 6.0 % 0.0-5.0 Above high normal [facility] ([facility]) Eos % 1.3 % 0.0-3.0 Normal (applies to non-numeric resul ts) [facility] ([facility]) Lymph % 24.2 % 24.0-44.0 Normal (applies to non-numeric resul ts) [facility] ([facility]) Immature Granulocyte % 0.4 % 0-3.0 Normal (applies to non-n umeric results) [facility] ([facility]) Neutrophils # 4.6 10 1.5-8.5 Normal (applies to non-numeric re sults) [facility] ([facility]) Baso % 0.4 % 0.0-1.0 Normal (applies to non-numeric resul ts) [facility] ([facility]) Eos # 0.1 10 0.0-0.5 Normal (applies to non-numeric resul ts) [facility] ([facility]) Lymph # 1.7 10 1.5-5.0 Normal (applies to non-numeric resul ts) [facility] ([facility]) [place] # 0.4 10 0.0-0.8 Normal (applies to non-numeric resul ts) [facility] ([facility]) Baso # 0.0 10 0.0-0.2 Normal (applies to non-numeric resul ts) [facility] ([facility]) ID Date Data Source [id number] 10/07/2019 08:04:00 AM EST [facility] ([facility]) Name Value Range Interpretation Code Description Data Aby rce(s) Supporting Document(s) White Blood Count 6.8 10 4.0-10.0 Normal (applies to non-numeri c results) [facility] ([facility]) Red Blood Count 3.62 10 4.00-5.40 Below low normal [facility] ([facility]) Mean Corpuscular Volume 91.2 fl 80.0-96.0 Normal ( applies to non-numeric results) [facility] ([facility]) Hematocrit 33.0 % 36.0-47.0 Below low normal [facility] ( [facility]) Hemoglobin 11.0 g/dL 12.0-15.5 Below low normal [facility] ( [facility]) Red Cell Distribution Width 18.1 % 11.5-14.5 Above high normal [facility] ([facility]) Mean Corpuscular Hemoglobin 30.4 pg 27.0-33.0 Norm al (applies to non-numeric results) [facility] ([facility]) Mean Corpuscular HGB Conc 33.3 g/dL 32.0-36.5 Normal (applies to non-numeric results) [facility] ([facility]) Platelet Count, Automated 286 10 150-450 Normal (applies to non-numeric results) [facility] ([facility]) Nucleated Red Blood Cell % 0.0 % 0-0 Normal (applies to n on-numeric results) [facility] ([facility]) ID Date Data Source [id number] 10/04/2019 03:39:06 PM EST [facility] Name Value Range Interpretation Code Description Data Aby rce(s) Supporting Document(s) Progress Note [facility] [id number]/DTMxvBOElq1BbABcqJKb6HAglRWMdH4GgJCK5tQ7uOJB6AOaAMgMkIoJxRmXn [facility] [file] ICAgICAgICAgICAgICAgICAgICAgICAgICAgICAgICAgICAgICAgICAgICAgICAgICAgICAgICAgICAg ICAgICAgICAgICAgICAgICAgICAgICAgICAgICAgIC SnKR5POSIzSGCsPSFgDHYpSUOzEIZeEPQkSFWcXCYrJCJxAUXrLPDxWPVjUBGvUOQlTJClWLLgHAIrON FjOYLqXBKcYVEbZNEgBCQbIUXuUGItJENuZDSrLGGjKGBrHFDkVEPqZIOiAN1KQWFmTFCeERUlHSBuGK AgICAgICAgICAgICAgICAgICAgICAgICAgICAgICAg XSXcLSAdDJQtXWMlILNoTRPwTQNbYFWwUMYdTDPsUUQzGXTqCGUoCEJzYGOmRDHgNFQdUDPwFU7PKRJc ICAgICAgICAgICAgICAgICAgICAgICAgICAgICAgICAgICAgICAgICAgICAgICAgICAgICAgICAgICAg ICAgICAgICAgICAgICAgICAgICAgICAgICAgICAgIC YdTTVgEF6PIQUpMHMwGUXpVVUoUFIiPBPpBZSnSETaCTAwHWIoEZBxGMBuAAGgESNcMAYvLNNaGWGlDB PaMRLqBYXtCHQaDBJfSXMqARHeYGZgOLChURTrPQYwMLNsOPOcNDThYEJdTLQcJE4HEWHcWRYjKXCjFF AgICAgICAgICAgICAgICAgICAgICAgICAgICAgICAg YWHvLOQaHVTnDQMoUHAsNOPeLXOmZOOrRTIzKDNuVPWhEMWeKCZiQHVsPRUcNWBfYLJxZSOxXDGeVF3W ICAgICAgICAgICAgICAgICAgICAgICAgICAgICAgICAgICAgICAgICAgICAgICAgICAgICAgICAgICAg ICAgICAgICAgICAgICAgICAgICAgICAgICAgICAgIC EbBNWvYVFwOS4REWQzIBFoTCWnDOSdEAJiUIQjPZEbGTSnRQKoEJZrEXSrCYDmZUDkLHRhLALaDXIhDP PjULUuDTIyHTDqUWRyEIZqESKiEITiUKOjNBKwXUHhRAOeYMHxWJCmPVPhUETfDICpBC1QCLXjDQVtFE AgICAgICAgICAgICAgICAgICAgICAgICAgICAgICAg ICAgICAgICAgICAgICAgICAgICAgICAgICAgICAgICAgICAgICAgICAgICAgICAgICAgICAgICAgICAg FL0RWHLlKGXuTXBmLOIuEPGmIDDpKIUnPDCwNJMrQLMxDJSgIXBjXLXjXJQnMTDdCLHqVMNlDDClJORq ICAgICAgICAgICAgICAgICAgICAgICAgICAgICAgIC WmHJNwHCAkDSMjES2OEB58hRSed4B7EMLsYB1hxum/Km5EOWqhndDixJHtVX5VVvKrZI9pbx1NQzXsOC 2pdn4KTVuMGgYqG8D7nPYoQFJoHDWUBrBmM24xBXuiQg76CDlkVOHiXaSpNSz5Wc4HTdDsJ0ezKFXjSk I9GIZyGyDeGLmtMP0Gn4GmaPTdKGn+Ro8QHS6cj9Ni KYzzZHSdWC0ecp0YIAkXDdHqR8WvzaE7NBNfEVJoCz2LBKTvJAIkdGXzQFBhQVOELzJxV4HjgG10HGDP Cj4+NMaavrDmUimMHiBzFDBtn7MzKCp8AR0HGTJwMOt8cHBjIMKfC1Tjd6BjHa94QQSeMfroNpCcmJiv E9H2yRwwST6wEYNiWf5eES1zZRZsOGG3DuAxVDFOFQ 3PXBEbSOHfiGEjOWCuZAABMA1SSSkoPPQ5PCBbtuPsfJWtJAsaQE5YDSSrnpUpVFfrVUDVZHw+Pg0KZW 6ur7CbCDrgTSKqGV1utk2CPVtRGsEoQ1M8dZDeW1M5CBnrWx2HGRZzLNEwGOgzCVTTARxvRI3CTO2con E9HS0NeSHrQSJbLLXijASuDJr4J45xoVBiQTstCT8H ICA+Mariaa+Gx5VXABdTHJaAFCqFlRrTXEUUyYoB4BdA7QFl7UuM0JcOB37tPweazQdWDtiEN3IRC9pVTMe YNOXJU2ZsYRftR8zehPlNXFqCRMINiVzE63mdZOsQARsVSK0EUQoQw1MHFVdS9RzwdFvkCoztiAmQZSf ORJNRV1JXXknrzRqcMHtpRnvFV36uGaxFY6BSi8SPy XmXV1irw9UfKFoYi1OIVPvJz7LNUXeBVFgODEeJNL3XNJwIcSnCKoeMTCaGZGyPGH0JMIzIBQyGT6VFi ZaNYCoSNinUoIaWRHgGBQytk3FNJQvZJYrGKr0JaHeNCUfEOKhKSseAHKmPZUfAAT9BJUqXOAqCL6QTs RcZPEkTXSjOXciLMXoQMUzdy8JXXFdBPEcQiLbNVEl CZIfGGGlPMpvSRFkAXKbHTvbROPwVEXmXE5MMiNaWAXfDFAxCpSnEOPdEABjfu7DMCUsUUMuFhC0MdFu ZQIdLURhNKqcEGIpLLU2JPH8ZTPnACWiSR1VGmOtIBKoTJW7QLRdOVHtHNFrkl6LEAChLJUeERb2XlOv KBJmSSMoGScvNOZtIGP3RdUeMOGqLAIxWM7GFdEfIA JmSWM7ASqoBQIaSFPtzr2MKRPdJJBoHxk2ZpJiMCWdZOQsKRmgKSUrXPI0DFQ2BERwBOJsUA0WVmWmJD QuVDtmJMSuKVRoNEHnui9UODOtBWBiAxE1GxCzRZDiQWHrGMelERIiZBB9FNifTEIpQNUfBN0OWqBvPK KnWYfqBzLhXRMqHDDicp3CHEZuLBGiLEBdSzCpWNBy UHNyDLl6psPobZDuRLf3CG7CK6ZoyrSjDwCIFv8Yl978OMMjQVEgXf1RB9vjOc2tDKLxXNOQRx9QUPh7 ZgZeNwJ9CEK7WfZaEbl4DmSdMkwdODLlMpHdIcp1ZTM+VSuzEwTwBAPyLDA8MGGvJVHhEzU1JKR3SWZz HIGeTcw8HK1xMCFBJx8+RTbzmJRmlBgwUFYAVhX2QMYwEPfuZRYOWf6Y ID Date Data Source [id number] 09/29/2019 11:32:00 AM EST [facility] ([facility]) Name Value Range Interpretation Code Description Data Aby rce(s) Supporting Document(s) White Blood Count 6.9 10 4.0-10.0 Normal (applies to non-numeri c results) [facility] ([facility]) Hemoglobin 11.8 g/dL 12.0-15.5 Below low normal [facility] ( [facility]) Red Blood Count 3.95 10 4.00-5.40 Below low normal [facility] ([facility]) Hematocrit 35.0 % 36.0-47.0 Below low normal [facility] ( [facility]) Mean Corpuscular Volume 88.6 fl 80.0-96.0 Normal ( applies to non-numeric results) [facility] ([facility]) Mean Corpuscular Hemoglobin 29.9 pg 27.0-33.0 Norm al (applies to non-numeric results) [facility] ([facility]) Platelet Count, Automated 229 10 150-450 Normal (applies to non-numeric results) [facility] ([facility]) Mean Corpuscular HGB Conc 33.7 g/dL 32.0-36.5 Normal (applies to non-numeric results) [facility] ([facility]) Red Cell Distribution Width 15.8 % 11.5-14.5 Above high normal [facility] ([facility]) Nucleated Red Blood Cell % 0.0 % 0-0 Normal (applies to n on-numeric results) [facility] ([facility]) ID Date Data Source [id number] 09/29/2019 11:32:00 AM EST [facility] ([facility]) Name Value Range Interpretation Code Description Data Aby rce(s) Supporting Document(s) Lymph % 21.8 % 24.0-44.0 Below low normal [facility] ( [facility]) Neutrophils % 70.0 % 36.0-66.0 Above high normal [facility] ([facility]) Eos % 0.7 % 0.0-3.0 Normal (applies to non-numeric resul ts) [facility] ([facility]) [place] % 6.9 % 0.0-5.0 Above high normal [facility] ([facility]) Baso % 0.3 % 0.0-1.0 Normal (applies to non-numeric resul ts) [facility] ([facility]) Neutrophils # 4.8 10 1.5-8.5 Normal (applies to non-numeric re sults) [facility] ([facility]) Lymph # 1.5 10 1.5-5.0 Normal (applies to non-numeric resul ts) [facility] ([facility]) Immature Granulocyte % 0.3 % 0-3.0 Normal (applies to non-n umeric results) [facility] ([facility]) [place] # 0.5 10 0.0-0.8 Normal (applies to non-numeric resul ts) [facility] ([facility]) Baso # 0.0 10 0.0-0.2 Normal (applies to non-numeric resul ts) [facility] ([facility]) Eos # 0.1 10 0.0-0.5 Normal (applies to non-numeric resul ts) [facility] ([facility]) ID Date Data Source [id number] 09/29/2019 11:32:00 AM EST [facility] ([facility]) Name Value Range Interpretation Code Description Data Aby rce(s) Supporting Document(s) Creatinine For GFR 0.56 mg/dL 0.55-1.30 Normal (applies to non -numeric results) [facility] ([facility]) Glucose, Fasting 118 mg/dL 70-100 Above high normal [facility] ([facility]) Blood Urea Nitrogen 13 mg/dL 7-18 Normal (applies to non-nume clarissa results) [facility] ([facility]) Potassium Serum 3.4 meq/L 3.5-5.1 Below low normal [facility] ([facility]) Glomerular Filtration Rate > 60.0 Normal (applies to n on-numeric results) [facility] ([facility]) <content>Units are mL/min/1.73 m2</content>
<content></content>
<content>Chronic Kidney Disease Staging per NKF:</content>
<content></content>
<content>Stage I & II GFR >=60 Normal to Mildly Decreased</content>
<content>Stage III GFR 30- 59 Moderately Decreased</content>
<content>Stage IV GFR 15-29 Severely Decreased</content>
<content>Stage V GFR <15 Very Little GFR Left</content>
<content>ESRD GFR <15 on [employer]</content>
<content></content> Sodium Level 141 meq/L 136-145 Normal (applies to non-numeric res ults) [facility] ([facility]) Carbon Dioxide Level 25 meq/L 21-32 Normal (applies to non-num grady results) [facility] ([facility]) Anion Gap 6 meq/L 8-16 Below low normal [facility] ( [facility]) Chloride Level 110 meq/L 98-107 Above high normal [facility] ([facility]) Alt/SGPT 405 U/L 12-78 Above high normal [facility] ([facility]) Ast/Sgot 284 U/L 7-37 Above high normal [facility] ([facility]) Calcium Level 8.8 mg/dL 8.8-10.2 Normal (applies to non-numeric re sults) [facility] ([facility]) Alkaline Phosphatase 937 U/L 45-117 Above high normal [facility] ([facility]) Bilirubin,Total 8.5 mg/dL 0.2-1.0 Above high normal [facility] ([facility]) Total Protein 7.1 GM/DL 6.4-8.2 Normal (applies to non-numeric re sults) [facility] ([facility]) Albumin/Globulin Ratio 1.03 1.00-1.93 Normal (applies to non-numeric results) [facility] ([facility]) Albumin 3.6 GM/DL 3.2-5.2 Normal (applies to non-numeric resul ts) [facility] ([facility]) ID Date Data Source [id number] 09/29/2019 11:32:00 AM EST [facility] ([facility]) Name Value Range Interpretation Code Description Data Aby rce(s) Supporting Document(s) Carcinoembryonic Ag [Mass/volume] in Serum or Plasma 2.3 ng/mL Normal (applies to non-numeric results) [facility] ([facility]) THE CEA ASSAY IS PERFORMED ON THE [employer] BY CHEMILUMINESCENCE AND SHOULD NOT BE COMPARED INTERCHANGEABLY WITH OTHER METHODS. IT SHOULD NOT BE USED ALONE A SCREENING TEST OR DIAGNOSIS FOR THE PRESENCE OR ABSENCE OF MALIGNANT DISEASE. PREDICTIONS OF DISEASE RECURRENCE SHOULD NOT BE BASED SOLELY ON VALUES OBTAINED FROM SERIAL PATIENT SERUM VALUES. Cancer Ag 19-9 [Presence] in Serum or Plasma 4844.0 U/ML A aguilar high normal [facility] ([facility]) THE CA 19-9 ASSAY IS PERFORMED ON THE [employer] BY CHEMILUMINESCENCE AND SHOULD NOT BE COMPARED INTERCHANGEABLY WITH OTHER METHODS. IT SHOULD NOT BE USED ALONE A SCREENING TEST OR DIAGNOSIS FOR THE PRESENCE OR ABSENCE OF MALIGNANT DISEASE. PREDICTIONS OF DISEASE RECURRENCE SHOULD NOT BE BASED SOLELY ON VALUES OBTAINED FROM SERIAL PATIENT SERUM VALUES. ID Date Data Source [id number] 09/25/2019 12:39:17 PM [facility] Name Value Range Interpretation Code Description Data Aby rce(s) Supporting Document(s) Progress Note [facility] VWVNLa6mBbLIDkCs68/LFIviVHYea6OmEBcuISt6FKnaEQTlP9NfXAI9qV5jRNB3DIpTAvFwFlMdLpL0 [facility] [file] 449T1tbmJgm5ThEWwS1WXD+flow match sofa cutter/ZMJiZdqx8sCxhxEh [file] 0KICA+Mariaa+Ha7XITSqPPEjUWWsWcTjYSBKVtJiJ6YrQ9VYz7PhF1AsDT47sIfawjWwINcxFR5MAS0lMC AwLSXXEH4PjECygM9ndpK7RROvHBFWCpRxI23etRXd VDIyNQR1JIZqSm6RQUOsR0CfzuYxiVjtbuVgYNWfLPNSOF6ALPkasdCtoDRnkLkzWF85wDxhJB8TGh3X YyLjUN3ixp7XoRRpKd4DYIC4Jm4AMNZvMRDgBNUpHUM7DLRvPhBnOCnoUAIkRDJcGGF4JXTxOMRcCM2K WbTpDGChMRE1OVMgTPErPBLrdr5VJEHeMKQ3HdA6Jb VqQWWiQUFvSSvtYWRhTVHdOOQ3ZSCxGKDvTM7EKwNjVMJfDMZ2NDBzNCOvPCBttc2QKKMdSILaBVMyXT WdOIHcINGaSBozOLGbWSKkCDe0WBJxXGSgJK1CQwItFLWaWQE2QJToSJUpXJAojt9BDPAcIQDgYNVqPq BmJGTmCZCzQYxoUOQoALL1GAHlKUTwLISlRO0XQeHu JUThBCPpHAJwCZNpNJJoce8PEZPwULD7SUI1HOFmWWKpSCAtPAmzKCFcJEs3ByExHWLgPENaIM9RGgAw UQJjVDD3SuTtILNxYTHytf3LGQVwCNI4SQW8NMYpBVDdXOEiCVswPIMwFDg2SlE2IMEcHYSqGC3OSqIk MXHvBGKdEpBcGABjFPZmcn3CWZUoOXRuRNA5TTBhIG McJTAcUWhxKIEsSTX5ATA8LVZeJWPzFB1RHaVsSHFsSVT8YfVnEKNzNVGchn2VYMRhYEG5MKz4DrYzNW KmYYBxTGvaOEIbKWn4TXQ0PHUpKOYpHM2EUrLbEAPqSORoIQYhSBLaBNZcfv6WREFlFXY3JnIuYhFzEJ HqNLDoJAgxIJEdHJt9PzMtPCVzNTBtBL7VSkSnHTXh CDI5LEYtJXRlJIKufw1ECYKhHPBiMvZ8UlAdWECgTHBmSWyuBPPcZVV2LaC9AZSmMVZkJM4IXoBqVUCn URm8TtAvPVAoOJWatr5TWPDyZJZmLRipLyPxRNEpPPLcHUrfWUGgELV4Vhh8MTNpDMXiSX9HEpErXSNr TTk3OhsfBCSdNEMmnt9SVWFpJDJqNLS3UXCeLXEcTA OeBCicKFTwZRR8CFvyDRIsJRShNT7SUoZwNFHcROcpTMAeBEUeLBVlrj2HXILsZZB1CbY1FZJaXGAqYX SfFYkwWDLiSTO6YLChMFNmEXRoWF8DUhKoPZQfXWysEgdwSJAoRLEmjs5XRLXwUVV6IWEtTgBpNRQrDA DuZJaoDFTrRGH3KiYbETEkTDDaMK8OAcFcIYChXNc2 LOjlPKPxJKUbjb2ONDAiXAQ5BBIvZsVhLJXdAFDvPQxoLAHeALUjGrB0GABrTIQcQF8DStWrKDHkHYC4 QTbaTHUfVGJzvn2QZOIdBNB3XOG4EJMgKNYeYVRbDGirYOQzDEI0XBcbUKYsVUWgLE1SDzTgRYZzXVZu HCYcZHUlFLJmtc6XSINjTZD1CsHcVXCaPLRwTOFmMW snOEWlCYX8JBhnMPEbGYAeYV8HFgEmEZZzGfwjXfYxZMFpVBCzpc9CMGPlYRW6CjB1FoXaKBZpVINoZP geTYPqYTD6Asg3OYZxVCFuPA4YUcMoDOIeWwq3InxzDCHwCORegt1JKJCpIHL2WEO1ISRzRQByDKCbHR anFYYoRPn2XGT2ZDFuVFNuTP5QEkKyTVVcZYk2XLQk PMLsXLVixh6UYDUbEOX2XtumIMMuDPCkXYPoIRlfCRXjCXk8Lka9XAFtABZsTU5BPkZaSORkJKy9HSJu JYMeUJGxbo2DOSYaKBD6BBC3VNQhFLMeQHEvBErpDBRsKBg0LeB3NQKwYSFsLL7ERyRsFABxTZu4CUBr EVRxCRNgsh7NSRBjHBI0FVN2OxDpBNHxKSYrDSehHX YsNOfjYvG1NDUmTBGvFU2UBuDyIPWbETR6HTfqPEMzUSCamq5QVLZbGYX3XNYgKMMcMBQtIHEwYNfsJV WeRDfhTXtzMVUdLZOxCM7WEwSuLFLtKOO9HzCaKJFqRDUmcz7HMEIxMUD9GkDqXsRfDCHfEXRgBSqnCS LhZMhrXpFnCTCjFSTmXG7KRpBcATScZAM6TuEgTUXi ZRVrfa7CZNDxWQJ5DiI7ECUpYOAoRNHhEIm2znQsuMSzVWo3HH2EK4RypqWdFxITKc9Dq683IMxuWCGa Ca3FV9sqSs2wBOEfTUHBZu2ZUNc6CbM2ECOtZvEtPKTnZKHwRRWkWZFvJNriQMZsIoSpUVF+IDxmNDZl ISBgFAGpEaH3JgKmVEH9CMZwFXUqSnUuEjG3Ks4n XSANCj4+TNfalBFhoSkhITXLEmq5ReCkEYnaUQBZHz8F ID Date Data Source [id number] 09/25/2019 12:17:14 PM [facility] IR VASCULAR ACCESS INSERT OR REMOVALFINA L RESULTInterpreted by:Boogie Up, MDPROCEDURE: ULTRASOUND AND FLUOROSCOPY GUIDED SINGLE LUMEN POWER PORT PLACEMENTHISTORY: 69-year-old female with pancreatic adenocarcinoma. Single lumen port requested for vascular access for chemotherapy.COMPARISON: None.TECHNIQUE:Operators:Attending physician: Boogie Up M.D.Fellow: NoneResident: NoneProcedural Nurse Practitioner: MARIAJOSE Orellanaedation: 2 mg IV Versed, 100 mcg IV Fentanyl, for 15 minutes of moderate conscious sedation. The patient's vital signs including blood pressure, respi ratory rate, pulse oximetry with PaO2, and heart rate with the EKG tracing were constantly monitored during the procedure.Additional Medications: 1 g IV AncefFluoroscopy time 0.5 minute(s), radiation dose 3.29 mGy.Prior to the start of the procedure a "Timeout" was called, confirming the patient by name, medical record number and date of , and the procedure to be performed was confirmed. All procedural staff within the room are in agreement.PROCEDURE/FINDINGS:The right neck and chest was prepped and draped using maximal sterile technique. Ultrasound demonstrates patency of the right i nternal jugular vein and an image was obtained and stored in PACS. After injecting 2% lidocaine with epinephrine for local anesthesia, direct ultrasound guidance was used to perform needle access into the right internal jugular vein. Using intermittent fluoroscopy, a 5 Monegasque micropuncture catheter was positioned in the superior vena cava.2% lidocaine and epinephrine was used to anesthetize the chest wall pocket and tunnel tract. The pocket was created with sharp and blunt dissection and a single lumen power injectable port was positioned in the pocket. The catheter from the port was tunneled under the skin to the jugular insertion site. The jugular insertion site was dilated to 10 Monegasque using a peel-away sheath and under fluoroscopic guidance the tip of the catheter was measured and cut and positioned such that its tip was in the high right atrium. The port was flushed with low dose heparin flush, per protocol. The jugular insertion site was closed with Dermabond. The port pocket was closed in layers with absorbable sutures and Dermabond.The patient tolerated the procedure well without immediate complications.IMPRESSION: Successful and uncomplicated ultrasound and fluoroscopy-guided right IJ single lumen power injectable port catheter placement, ready for immediate use.This document has been electronically signed by Boogie Up MD on 09/25/2019 12:15 PM Name Value Range Interpretation Code Description Data Aby rce(s) Supporting Document(s) ID Date Data Source [id number] 09/22/2019 01:25:29 PM [facility] Name Value Range Interpretation Code Description Data [facility] rce(s) Supporting Document(s) Progress Note [facility] PRYIFr0iCcMUQkQr01/IAXmuOTClz9EzESyuWVh1AQluJMNwI8TgQDN9vB3eWOQ4RTxIGsWxTzDoPcBy [facility] [file] WVQ7WpH5XVXlMPW0JYjsZ7FeIdU9Dx1iDFVWUb4+CHvfkJHcqRfvLGTICdF2PpIQBwUkLH1ZGXh= ID Date Data Source [id number] 09/22/2019 12:25:53 PM [facility] CT THORAX WITH CONTRAST [id number] RESUL TInterpreted by:Mauricio Nava MDINDICATION: Pancreatic adenocarcinoma, staging.TECHNIQUE: CT thorax with contrast. 1.25 mm thick sections were made using helical technique from lung apices through lung bases. Intravenous contrast was administered for this examination. Automated dose lowering techniques and/or adjustment according to patient size were utilized for this exam.COMPARISON: None available.FINDINGS: The visualized portion of the chest wall is normal in appearance.The mediastinum is free of lymphadenopathy. The heart size is within normal limits. There are atherosclerotic calcifications in the aorta and its branches, including heavy calcification of the coronary arteries.I see no findings of pericardial or pleural disease.The included portion of the upper abdomen has not changed substantially relative to the abdomen CT of 08/30/2019, including the presence of dilated intra and extrahepatic bile ducts, except that the ascites visualized on the prior study is not apparent currently.The lungs are emphysematous. The lung images also demonstrate small calcified nodules bilaterally compatible with granulomas. A 6 mm noncalcified nodule is present in the upper lobe of the right lung on image 114 of 264, a 4 mm noncalcified nodule is present in the left lower lobe on image 152, and a 3 mm noncalcified nodule is present in the right middle lobe on image 150. The patient has localized scars in the right middle lobe and lingula. Otherwise the lungs are clear.IMPRESSION: 1. 3 noncalcified pulmonary nodules. The largest nodule, in the right upper lobe, has a morphology consistent with an intraparenchymal lymph node rather than a metastasis. The other nodules are too small to characterize, and metastatic disease cannot be excluded.2. Heavy coronary artery calcification, raising the possibility of significant coronary artery disease.3. Otherwise essentially normal examination of the thorax.This document has been electronically signed by Mauricio Nava MD on 09/22/2019 12:23 PM Name Value Range Interpretation Code Description Data Aby rce(s) Supporting Document(s) ID Date Data Source [id number] 09/22/2019 11:37:34 AM [facility] Name Value Range Interpretation Code Description Data Aby rce(s) Supporting Document(s) History and Physical [facility] AYYTOn0dQrHRScLe72/HFFaxIQXre0NfMIcmFXl5SSqbJIGzA7WeIND2dN6zWBS3DPfJWbBoDeCvXjUz [facility] [file] H8DuM4YFxlZGHHXz4X ID Date Data Source [id number] 09/22/2019 10:21:25 AM EST [facility] Name Value Range Interpretation Code Description Data Aby rce(s) Supporting Document(s) Progress Note [facility] ZGTOEr7uCzPKJqPx12/RUBknWPGpk8MhDFxcNPi6FMtrBQZxA3UtKJR4cK3yBYX6KLuQJxSzNmQxIkFy lbm [file] AgICAgICAgICAgICAgICAgICAgICAgICAgICAgICAg ICAgICAgICAgICAgICAgICAgICAgICAgICAgICAgICAgICAgICAgDQogICAgICAgICAgICAgICAgICAg ICAgICAgICAgICAgICAgICAgICAgICAgICAgICAgICAgICAgICAgICAgICAgICAgICAgICAgICAgICAg ICAgICAgICAgICAgICAgICAgICAgDQogICAgICAgIC AgICAgICAgICAgICAgICAgICAgICAgICAgICAgICAgICAgICAgICAgICAgICAgICAgICAgICAgICAgIC AgICAgICAgICAgICAgICAgICAgICAgICAgICAgICAgDQogICAgICAgICAgICAgICAgICAgICAgICAgIC AgICAgICAgICAgICAgICAgICAgICAgICAgICAgICAg ICAgICAgICAgICAgICAgICAgICAgICAgICAgICAgICAgICAgICAgICAgDQogICAgICAgICAgICAgICAg ICAgICAgICAgICAgICAgICAgICAgICAgICAgICAgICAgICAgICAgICAgICAgICAgICAgICAgICAgICAg ICAgICAgICAgICAgICAgICAgICAgICAgDQogICAgIC AgICAgICAgICAgICAgICAgICAgICAgICAgICAgICAgICAgICAgICAgICAgICAgICAgICAgICAgICAgIC AgICAgICAgICAgICAgICAgICAgICAgICAgICAgICAgICAgDQogICAgICAgICAgICAgICAgICAgICAgIC AgICAgICAgICAgICAgICAgICAgICAgICAgICAgICAg ICAgICAgICAgICAgICAgICAgICAgICAgICAgICAgICAgICAgICAgICAgICAgDQogICAgICAgICAgICAg ICAgICAgICAgICAgICAgICAgICAgICAgICAgICAgICAgICAgICAgICAgICAgICAgICAgICAgICAgICAg ICAgICAgICAgICAgICAgICAgICAgICAgICAgDQogIC AgICAgICAgICAgICAgICAgICAgICAgICAgICAgICAgICAgICAgICAgICAgICAgICAgICAgICAgICAgIC AgICAgICAgICAgICAgICAgICAgICAgICAgICAgICAgICAgICAgDQogICAgICAgICAgICAgICAgICAgIC AgICAgICAgICAgICAgICAgICAgICAgICAgICAgICAg ICTkLBXoEJLaEWKrSDZbSZYrPOVvSQXaSHObTFLkLRPbVWAbRJOhDYPqEJBfCOOfGRs7R1nfWODsDXPu CR1aPSp9Zu7+MPhSSuPqPEF1mjMdgN0OKC6mz1WlROsySBNqm6WfZSj6JH5BQWZjVOlkPG7GKReddw6N SZSwBQZehJJAj9dyKqAgGAS7EKJnMuuxTL5DMCFdB4 yzgmHsHUUfLRTKQNnbOLZEHKllXKXLDKMlIKUcKgDoUhLwTJSnJTJpKWNWPPC3BKUxZfJtSGHlFRJmXm XwQVMPTB1ACqFuW3XmvL64LHtGOu1+IMycbvJfOjaHZzVkIUIkc0EaMZm3GE2LNWReIplpm1SkIYUbXM YKFPudFU5FRPX0OEQkESGeHk3UGUPaK760xyFjZM4V Xc4WDjCsWC0mwq0TUAEgWIJbFfeCOvm6GJulBU3JoJMwASwRua8onrZbkfIUl1JzyaMerCQPeOTdv1Fy KFBRWCHrtMRwWXPPJLLlkAVpAoCsLgQlGpRvKCk2DSXqZU3wUIupLZ5TRBL0GTsyCELdKADeG5aVYvPo BSYoUeRpoOtkAT8TYiWwD7SwiyZcbTL5VuRdAXXKWb 4+KYhepxWtMzdUIwM5BURfs9HwRXx6TC6RJAIkIZrzFD6DZZRgiH7eOGpxPT3ZBkL5BBSiXQTWTuHiT0 0eyJJgIXw1B6QmYoVtCLIeRzacOBXwNVzmLjIaQJGlSeNgOEtiHS7+ID4+AAqfYK5BJLcbogOpWAEvVu 9MKROvKYAfBU9lPRHaCUFlH7I7nWqkUJHOAuAjM0ks tywtXB4mAYZpA777jGatnaXoJXKlKOVjMw7GYYOoPRG8HOMcdLZtICOnLFQKAXgkRP0HnVEkSJO0aJ9z JVngWTFoMIWiO8tOSxBkrIrxNM23qKcaatXrtYOcQTp+Zy9EDN5tt2WxOLe2qeCzZNcdLUM4HPtaWEEy VZKuFBYjHJG2XRY0HBYGRtFbGNWiMXByGGeuJCJhXX Ntha5TKRDfBLX3HJN2RZNnHKZxKJOzAQoqVKDeMSvoDxe5XNNwKVJyHW4KBnGxMCPhMAKqYRetEHFcPZ Peeo3MKZHlEXKmHdeyHqJzDTZmUJFfQElnOZXhNTFjXOH7ZKRiKCOhUB9DQwIoZPKfPJetWOWhFUJfFC Qjhg3ESVYrSIRmVuO3WUYzBLFhVYZoNIutAPLlTXC6 Qyq1FGTjRKBwGW5OVvSfKIVcSTd1CNgtYZXyCYEjdj7QSSMzLOMbDaOfUdMdHSHfPDSdXVatPWYgKUJo KCG2WAIeFPFhJI6XCaJbHLReZZGtDvQwSZKjHORyyc4PRWNzUZDtOSHqFjJbBCLmHRPwZAadLCEqBYL4 FKU2FXHzUPOyZP4MZzKdGQJrKAgrOGXrAJHkBNDhpd 2BLCMzZDUlZTM8MJFaOLEdXRXgOMpeHJPtPHN2RQA7HCEtNJOrFP3OZfGsZPBqLaN4UeGiQYDuOXCpvw 8MPDTbYSVzRFm4TWDpFNGaGFMkDGitOOLfKQJvDPu9GGMaOXQfRZ5XXkAlGHAtDrZ4VMZzFKDnKUKiri 6NVSOeFCGpVfL7PVOjQJEaZTAdRHgqZXApDHYrKYT1 DRMaUQQkAB9AKdSrRWDqHmWePgBpAZGgVMTwzi6CXQSlKPXkDYy1LCDxPRQcZMOsGJzsYUPxCZV6ZDff OMIeWLOhWG2AJiTvZBVvBpGpBnYdMRVtPCWbef1DWZPcPJUtNmhvCQDuDGMdRNXzECtaRZBxTKY0DKX5 MLIiQJKaYW6KGwUwBRPpZtquVhRlTTAuPIDvqm4JGI RvPDPfZaI3NBWjFDSmBYPiFKlgBAAoKHW7DfEtGMHkTIBvKC9GOqMaOOGgUqv6VqYgPRBvPCItqs1SQI QvSOHaADc2SqOvXAHmAJGdOLkkSZMqHCP3YXWeWYUhUWPgLU1YDjGgWPVlMmu5WWFfLNXgLBFxbv8FOD ZbKKT6CLe4RHApKRRsUELmMPhxXHDeLJhbJcMeQRVa SMXhAK7YQySrOPVpIre1GhQrEHApBERgyx3XAYKsBKE9SVv4AiEpJTGzUIXnVZrbEAUvKOwaXSW8EHWf DYRhAF5WYaLjRRRvAZB1SVblZCRvPQWirh9TCLGxJVV3MWN1ACTlHORbAKCxQFu6qrYfjGOkWJu0RS3W S8TupiGqODNKXd2Is581IOU1VPKdAu3XQ4pmAk0pKS NjGEAXSk9KOHe7DPYaDLPhLzIdUBOgIcDkTdAnOae2SrFfHEf8S9A6OcU+KCuvYoP0DwFuNvXuSeWrZO K8BdUsJAGfJCZ4LgxmNut0Qq0zYECYFx3+FQsjyGFypJuuUYQUClQ9NTfhWM1OZPOIA9EZMy== ID Date Data Source [id number] 09/22/2019 10:34:41 AM [facility] Name Value Range Interpretation Code Description Data Aby rce(s) Supporting Document(s) Leukocytes [#/volume] in Blood by Automated count 5.5 10*3/uL 4-10 [facility] Erythrocytes [#/volume] in Blood by Automated count 4.12 10*6/uL 4.1- 5.3 [facility] Hemoglobin [Mass/volume] in Blood 12.7 g/dL 11.5-15.5 [facility] Hematocrit [Volume Fraction] of Blood by Automated count 37.9 % 3 6-45 [facility] Erythrocyte mean corpuscular volume [Entitic volume] by Auto mated count 92.0 fL 80-96 [facility] Erythrocyte mean corpuscular hemoglobin [Entitic mass] by Automated count 30.9 pg 27-33 [facility] Erythrocyte mean corpuscular hemoglobin concentration [Mass/volume] by Autom[facility] 33.6 g/[facility] width [Ratio] by Automated count 14.1 % 11.5-14.5 [facility] Platelets [#/volume] in Blood by Automated count 262 10*3/uL 150-400 [facility] Differential cell count method - Blood [facility] Neutrophils/100 leukocytes in Blood by Automated count 63 % [facility] Lymphocytes/100 leukocytes in Blood by Automated count 28 % [facility] Monocytes/100 leukocytes in Blood by Automated count 7 % [facility] Eosinophils/100 leukocytes in Blood by Automated count 1 % [facility] Basophils/100 leukocytes in Blood by Automated count 1 % [facility] Neutrophils [#/volume] in Blood by Automated count 3.47 10*3/uL 1.8-7 .0 [facility] Lymphocytes [#/volume] in Blood by Automated count 1.54 10*3/uL 1.2-4 .0 [facility] Monocytes [#/volume] in Blood by Automated count 0.36 10*3/uL 0-0.8 [facility] Eosinophils [#/volume] in Blood by Automated count 0.03 10*3/uL 0-0.5 [facility] Basophils [#/volume] in Blood by Automated count 0.04 10*3/uL 0-0.2 [facility] Nucleated erythrocytes/100 leukocytes [Ratio] in Blood by Automated count 0 /100{WBCs} 0-0 [facility] ID Date Data Source [id number] 09/22/2019 10:54:10 AM EST [facility] Name Value Range Interpretation Code Description Data Aby rce(s) Supporting Document(s) Prothrombin time (PT) 14.2 s 12.5-14.9 [facility] INR in Platelet poor plasma by Coagulation assay 1.07 [facility] Routine intensity oral anticoagulation I NR is typically 2.0-3.0. Target INR must be clinically individualized. ID Date Data Source [id number] 09/22/2019 10:54:10 AM [facility] Name Value Range Interpretation Code Description Data Aby rce(s) Supporting Document(s) aPTT in Platelet poor plasma by Coagulation assay 25.3 s 24.0-34. 0 [facility] ID Date Data Source [id number] 09/18/2019 11:31:00 AM [facility] Name Value Range Interpretation Code Description Data Aby rce(s) Supporting Document(s) Progress Note [facility] IVIEZn2gGoILPoSn80/EFXcwNHImw6UzEXmuFUu2WNsgTCOsN5AtHWH5bM5wXJM3MCpYDqMwVuClCfI1 m [file] HoBRX9OTxeSBHUWy7X ID Date Data Source [id number] 09/17/2019 05:49:01 PM [facility] Name Value Range Interpretation Code Description Data Aby rce(s) Supporting Document(s) Progress Note [facility] JDWBEg5aKySMQjOr87/HIRmvPXRmd3TiBRrgLPl9QUqtHVCmN3WdHCD9nA9lHIA9QFkAAnJrCcXzWyI5 lbm [file] Tsry7LEXTPGKZnvNCZWI0CVMPSjrkeseIcefSxpSKo dfgqIa3ulGTTECZ8YnQL6rcgkWkvrycjAxn4d3Hmqjtj4upLKG0Y4Y1/+/3+mVTV6+bn1xhlf3jrByfe 8QKJGmjk5tp1/JqzISsGSu9eQMSnVPEw9Tb4eWvaiTk5/GuBiny5tTJzSI3jJ7spvg/9mA2MMH3JdNd6 1BEFb2cH0ocZbGQpeJkpi8++/tiUes51CHMukmOySo 6UeND8Vd228UpM0p0kIBYoiuT2hI8N+gjTillA3sjp2yOfaUvDhcRZybX0/5mHmS5b/o3ItoWcXR40p2 eLdkh8ytIU9f1UqZaMfK/i39+2710jicn99g6VdovrNgB212h32cYVw2/U/9TWrtkGkifAoQLtMWsAuX Cnxhj0e7Hdth21yKHL+xhbQkKekWD2otYpPSwSUECk 1IAQv0/0GqCXPHopABL25ExZ9cZMvtF7TmWapQsCWV+q15iMysS8lTLAZjvWBopTfNL58Hj9NGb5Op9Y 3cyIHFqSp1hYUaklzS8Z0MAytWHeRW1W8n+Ow+g1hCbhmSJ7GFvlua1Ax9MTl2TygUQuEzuIRXBP3ohM JXGf1QI0D53abSxPOp/jo5QomMV8Aa9Suowx0ErH70 xsXZ5Nd6x/pLuQA+CfgaW6vF9T+Ls5j8mSRGBRkei5dC1HzxJJheRLCN+IuvVDqCXdg5moI1WFQuH65T gmeQVIvNjRbw8kds8jGN/ZnHv4oPUyxh1HpDCwLm3BX2XyeQWoUFtXsdvp2SHoYE+0Hb60WFdDD+DXgX 1G0wcetNq2FXs3WuRv4CV9l6p4P0wBgzjKitvfsKVB yV8vGz6fUT+xF2StAUb/WzYXsrWioMGM9znUB/BKe7C7V0FLk+GpiH6jM7V1pQ9EV1PAFSf44Hof69A/ 4TxcjsfhetKTLCSPckuQDE/sB10u4VhE2nuq2n/pBC1JGAVBa7Z/ul2lDzNDi63vGah5W/Eg8Kvpf2vI 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+D/13XS5ZXW0km1T/5Z/y1fyoshT3EE3W00I [file] ICAgICAgICAgICAgICAgICAgICAgICAgICAgICAgICAgICAgICAgICAgICAgICAgICAgICAgICAgICAg HSOwUIDhDHMsPTFsEIKpJQSvDATgFPGuYJ3AVNRkYI AgICAgICAgICAgICAgICAgICAgICAgICAgICAgICAgICAgICAgICAgICAgICAgICAgICAgICAgICAgIC DeKJTvFZYvBOSiGLHlAIXlRSQeEUFbQXGrQVSqNSJeSETqDS3EYVRpCETcDXWaIEYeIKZvGNCtFYBrTP AgICAgICAgICAgICAgICAgICAgICAgICAgICAgICAg MOUxHMVlBWApJZRhOSVtNMDmTLIeDPEhEVZiCYKtTSFtYKDuEQZdVFJrWNEsYP9FJUMcQDLmQVQaNOYv ICAgICAgICAgICAgICAgICAgICAgICAgICAgICAgICAgICAgICAgICAgICAgICAgICAgICAgICAgICAg LTYyNXCvDJNtPIPsZSUmUOMlUQIuXAHcNFYkIE1YNA AgICAgICAgICAgICAgICAgICAgICAgICAgICAgICAgICAgICAgICAgICAgICAgICAgICAgICAgICAgIC MwNZDeQXXrDSZpBNCjQIGdEGEhOZUkGEXrRFVdERAnEBYfNENsVN9UIUZxWRJoWMMoABQyLJEcULPvYF AgICAgICAgICAgICAgICAgICAgICAgICAgICAgICAg QZArONBaKHJdPQLvFVNsGFDnHZYcERJxOUEtXAGbCENjULGjCBWcRKPoBGBxCTVsZD2EVCEbZXPoCFZp ICAgICAgICAgICAgICAgICAgICAgICAgICAgICAgICAgICAgICAgICAgICAgICAgICAgICAgICAgICAg ICAgICAgICAgICAgICAgICAgICAgICAgICAgICAgIA 0KICAgICAgICAgICAgICAgICAgICAgICAgICAgICAgICAgICAgICAgICAgICAgICAgICAgICAgICAgIC RpUATaAYJwPQNdBPOvILVrENRsTFHvXKRzRBZyQQZhJFZnSZDbQFEoXJ7IZAGfTAMgQQFcDANvVVCfPP AgICAgICAgICAgICAgICAgICAgICAgICAgICAgICAg EJZdPNWuBNHdARJlQDXvFQFoXDJpADKjBIRjFXQvFNZvEDXuZFExTESnCAXjZEDaLDLcWB0UAXUfZJFx ICAgICAgICAgICAgICAgICAgICAgICAgICAgICAgICAgICAgICAgICAgICAgICAgICAgICAgICAgICAg ICAgICAgICAgICAgICAgICAgICAgICAgICAgICAgIC JtSN5TGS22cUZwd6P4WOXtCV7cogm/Ob7DXQikprPbdAHbXT7OPzQxXG4qxr2JApSlYF1eun5FTIvPZy LnL4H5vSKpTJZgCAWFJhMwY30fSUfcQx03YJcjJTBmPyUjGHa5Vn8TEiMpS6cnALFaTcT9JBWaCoY5ZZ TpUvBiXDZgZRMnEQImPKZFJPS0AAQwVtQzIgWfGKIq VVniBAVMLT4DHxOnQ7HscY86KUkUJq2+NZyaegFhGbtJWzYaOMUni9UpXCt1CM8QKGItSgirz2HjMKPq PPENSBreDQ6RUPF1FZPrLUMtIt0RSFHtA859mtRvAX6PKf8ZTxCjTB6yxv2IXVZaVCEzRitMHux2NRep OM9LnIOvSHcMdi0jutMuklAEt7VnfbCijMATpX4kaY WfYtCTc9TvoCEyEH5JTDBrZOZpjUQiKnPjWwMbLCKtXfwsLAOUTYxFXdDuS6Kiy9EzGkD3TVBvVrMgGM dpTKJaPcN1KF73jWkgVC2SQCJnTFSlMD84EONhLWHyKc6FEi8FLnBvGQ6pab8MPAFpSQ9nnr8TTCvIIc CfA1M2eSIgU3Ugjo46WM6ToDL6zSYfKB7SjQ7dVB6P y8PfHMHyVpQeXUIsOTMcPCDgKUCwZwLgDX9FKEKpObNviQYfXHOiSxQ5REFsYyM4GOKtAF2UBHUrKCF4 LM8RWK2PTxkuL2IMURnfuIpgHwOIRED/ESFTCZWDHMajGNDaD54VK0LWRCyHCkmsQQmCPbxkQw3uAPd+ Tb2EGL2sv3ExMIg4GtPyJE5sxs9WNZjPUdFjT4O5dI SpE9R1WIgpTu1UBFAfDJFeYXylNUXJAHtiVM7GNY9qbfV8UE2YqOWhUPHgLLIllJMlFLb3C23agJNhWZ ggFR3IIRF+Mariaa+Mo5QGICdFVItGECaWlSeANUJYgPtV4NjM8SBy7FcR9FjKG49aZiffxClYUrsQQ4PNZ 1eWKLgWAMDVL4JtLQogW0pwzI2QUJhITNCPmTgT61k aPWxFQEwHYFxNJPkIu3YWDNlX3ZwmqJcbXjxwxIzDYTfTUZDNJ8MVHfnhgFaiVHblWuuNL09zWmsKI2X Us3SNiFjDV3bgx6IpOUyMn2JMIJ4WV9GNUFuNROtLAWbZYU8OVZoNuAtDBblXURnRXUqMYD2OIZkFXSv CW6JQlVmFOVgRWN2VkPzLHJiWTZrlv3JRDXnONL8Zf Y4VVVwSKKcDGExAQitKFWhKJEqCCZ7VAHaMDOrRF1YVeKnCUAgYXA0SzwbQNBpTCZgqz2ILMAaREGaWT n9MiKwIRMzPRZuYZylBIJqLEH9GVM4FNLvHFHcJS5PFkUnOTBlQXm0AySvKKLzMHGyuw1QIAPbPKVuTq M3HJDsWIFxMGDbIMmgHZPmOCBjTqY5SHYpKJXiEV7R PaQwXGKfZBN0CcQhJRTrQOJarn6HOUOsNTDoZQt4YoGmGRAcVEBrMHvtHEAwEXB3FRGjBZFyIZAtVK3A YtWhUCPtBlLpBXokSNKuJOLawn9RUYHvAUPwDQF8IcTfCIXdZHBfDHcpVISwFSL5FhR3DRUeDFZgGT0P UvKoJVChWfS1HXZuIPDnDYCsmo9CTYIeVFAhSSTcQs XlMLIyMNJgXFbsQFMwWGVbOIVfHRKdXOCkAO9MWjIoNPOuUeP2AkNsANTjKHTfvk4TXDNcHAFoIYL7JQ RoYTYrJIJmXKxaZGIxXHXeCGHuNOPuUKMiVF5ZVnBvEZTxZaC8HHHfZBNxVJRsnw5MZAYbAHJxMqPgJw FyOEJtXFMdQDskTTUgOUYvVuGsYMXzUDOiIB8PZeEv XJChKjA3PCpmEQThOBQjft9EDDTaSWC4DOJ3MqVtMRKnQIRsJCtbHPEpJHA6Imw2KFSyGCYlUQ5VYxQq MZEaVfO6UcSxUKSaOYVnqx0HPKAaQSK9RiI9GHVvJPYuDLIiFMdtHPBsQAH6RsWvDDNhOFJxLT6ZUwYm OCUlYzw2NFYjMEDvAJEtvj0JXTOcVWI4Cwo0RHFeQJ RuYEIeBLofQPHzQZneONL7GCRrMEEgLN7WSoIdHSHfXlViChMjXOFcYZBfjk3IRGVmQSY6QvY8DDSxTT PpLNGmIKqhMSGlLOpxWaS4AVPkEANzMZ5TNxNdAGJzFsD8AmAeBFAkFJFdsb1QBLAzFNK5XKrqEWCeGB XjZSMyXZzdAODpSKm5EMdwNAZdEDTlCL6JPoCeAGHn PwGmIgdmCISgHMWrvg1SFNYgWLH2PnCuLfQrMBZjBBQaIComXHVkHPr0AvV7JLOdKIXyJT9PYhDcDXPl GnQmAQjcHNKgBWKwjn6YIMKpJFV1DFY5GOUaZNPzURPqIPwaYOJiPYj7XOH9VGVkJWMmXO3WYlAqYNWq JPDtMmFhMZHpZWMixk4QSJLqHJR4BEY2DGYsDJEjLF QvIIlnJAFdNZh0GrTyLTNzHTIoWJ2IGbGlRSWvZCPcPzUdVFRpDDQqfv4CMXHiDAB0YgKyAIJlTVXqXH BnQTllEQJyGPq9FozyVLKuLTPoRS6MAuMmAQVxTJmfMONjODBlYADeva2EwOPmaVlxdo5PZChIFr3OlF mfWQQ1ZLqpXc2roRV8HuZwEZSFWo1NieSoKAJoBVBK FGtiATNcKNOjVCW5O4ElSQNrVAndXYC3X3R3L5MxLvvbCPTgPzH1RsC6AZHhWNuoT7I9IlXtBPL2Ptxn YQs0IFRwFEZbTORcEDk+NZ4mXBg+Jb9Yx7StljE8gwAtWHl5PMM0VI3EOYDKO3NNOt== ID Date Data Source [id number] 09/17/2019 02:28:40 PM [facility] Name Value Range Interpretation Code Description Data Aby rce(s) Supporting Document(s) Progress Note [facility] OIFEFs1oZbKDVvJx66/TEHbkJFGrt4LxGUfsPFn4DKvyLGEnE9WvEYJ3lA8oBFF1JJzWUkRvEpRgQnI8 lbm [file] AgICAgICAgICAgICAgICAgICAgICAgICAgICAgICAg ICAgICAgICAgICAgICAgICAgICAgICAgICAgICAgICAgICAgICAgICAgICAgICANCiAgICAgICAgICAg ICAgICAgICAgICAgICAgICAgICAgICAgICAgICAgICAgICAgICAgICAgICAgICAgICAgICAgICAgICAg ICAgICAgICAgICAgICAgICAgICAgICAgICAgICANCi AgICAgICAgICAgICAgICAgICAgICAgICAgICAgICAgICAgICAgICAgICAgICAgICAgICAgICAgICAgIC AgICAgICAgICAgICAgICAgICAgICAgICAgICAgICAgICAgICAgICANCiAgICAgICAgICAgICAgICAgIC AgICAgICAgICAgICAgICAgICAgICAgICAgICAgICAg ICAgICAgICAgICAgICAgICAgICAgICAgICAgICAgICAgICAgICAgICAgICAgICAgICANCiAgICAgICAg ICAgICAgICAgICAgICAgICAgICAgICAgICAgICAgICAgICAgICAgICAgICAgICAgICAgICAgICAgICAg ICAgICAgICAgICAgICAgICAgICAgICAgICAgICAgIC ANCiAgICAgICAgICAgICAgICAgICAgICAgICAgICAgICAgICAgICAgICAgICAgICAgICAgICAgICAgIC AgICAgICAgICAgICAgICAgICAgICAgICAgICAgICAgICAgICAgICAgICANCiAgICAgICAgICAgICAgIC AgICAgICAgICAgICAgICAgICAgICAgICAgICAgICAg ICAgICAgICAgICAgICAgICAgICAgICAgICAgICAgICAgICAgICAgICAgICAgICAgICAgICANCiAgICAg ICAgICAgICAgICAgICAgICAgICAgICAgICAgICAgICAgICAgICAgICAgICAgICAgICAgICAgICAgICAg ICAgICAgICAgICAgICAgICAgICAgICAgICAgICAgIC AgICANCiAgICAgICAgICAgICAgICAgICAgICAgICAgICAgICAgICAgICAgICAgICAgICAgICAgICAgIC AgICAgICAgICAgICAgICAgICAgICAgICAgICAgICAgICAgICAgICAgICAgICANCiAgICAgICAgICAgIC AgICAgICAgICAgICAgICAgICAgICAgICAgICAgICAg ICAgICAgICAgICAgICAgICAgICAgICAgICAgICAgICAgICAgICAgICAgICAgICAgICAgICAgICANCjw/ sPOpP2skkGCprdE7Z4lpKd1XDp4SNC2uv9WfBXVcAGanerXqWqkUIrJsZPMlVljNKxy7SWjuDE3QdSOx O6PsX0ZqQEnqFI3JUGXzMLQphJVfEXNbTWVfMeE1FH NmYBcuAO9MlPMdVXwzUVTxGWRrKhJiOABiIAIjIWWeUNOfABTODAXiNGKjLpZeTZMeFUVcZF1SMFHzQ8 94kpQjBn3ZAq8GKiEyHB0ndg9FNfUhPVDkPheCBsj5VHpcVP1JhMFbjFIqAcMbDQKUKfIcW7hrm2DoAi QyYFJHFVwvEW4Uz0EzyMQyHDy+Eb1WFQ4rz5BuXBct LfDvSG6wsj2KJUvWUbHaX1SjhPwrXXJyg5ifDGTwQH6eqTDxWVE8ZRPvhQgtKK7iEASAvXGcAT2xHTDm BY6PIOD6BQZhRm4eYNPmYXXhLbLfEROGJY9SHKTeKJYqrFSqAUHbYJJIKP8DVYsnWGT7NFMxofYinSTt EGmgIH1MTJPbwjIqZlOgZWJILDc+Uv5NLR6cn6KxQH jkHEMeEE3ydw2TCNoGFbWaM1Q4uGBmD9H7NXdqLz6JTCEzDKNuUtYoPQAZMVdjBR4ENA4tzsC3SS7WsP YpAVPvPKVgdNJgDLx3H34ogSLqRCepQY7QYQG+Mariaa+Ru8KSWMtMUEtFTEgWfCnBTHINrIeD9PkX9JOi8 UbZ8UyBC35bIzpuaBkVDqpTG3ADQ5eGVGcOXOTDT4F xCOvbR7skwMeVhTaFWZHNcPuW77umFWkWHIiMBDeQYPdSv8AWIVcQ7BjofMdjLoqvdPbRBDlKHGMIH9H EKctiaWwqYOfzLexNR10mWmrOY3JDy2LMqUjNE5xbk5UgIGkJv9DDIOxPJ7PQKRwAULbJRNaKTL5IHMv ZsXqOBnsBATtCKFvBIU6JBIkKIVcDO6RRxMvKREbZO HbIfomZVXvOPWdge1MMSBzOPF5EoP7LZVrAGBqZMFoHOnpHAXbQOHnSBB5QOIeETHnJQ9AEtUdZTTzWU H9HlJiMZMbOYFxnf2EAOXtXSYqLen0BOOoLBHqKHPoFLhcZGLdUMW0DTCnMHYrDUQeUH9SAdJlLYCeZZ s4MRfdVWAvLHRewq3ONJRgERJcLIR4WbElXUCwDYJl XXltMBCjZDXtOAakIYDsUMWkEX0JHzYyNCThPKHhHfNkNGEaEOVzmo9ZVUVrQMAwZKNxTwZxKCEbTYFp UVnyONDvTTT3YTU7OGJuEMFgBF7OXeWdYKQoXWf2NFBgZEBqJPZuol7JFIXsFKGoJCO3UCCmGWCoAZTl KVmiRRRpEWV6RSFuQIEnPPWvZV2QBzGaWCEfGSnbYr IbLATvJDRqme3IHXMhXZXiMNT9TcIoSGKqHMHqOMuaVKNdUTH4SiIbXZFaHHGfML0AByUaWDKwOaM8WE naKHCgUXLpop2PYJZxHIUwVMpqYTZzXMBiWLEoIVxaSNEyJMRxTKr9QMDbGYNqHC0KYaJeUBFvBWZxWQ etHXMbWMVgsg2HLXZeBCA4WfkiJAJiMORwKKXjVCcg UOPpLSWmDBI1GHMwKKRvLP4RRqJpTPObJVM9VSJcRQEqAULmnn5YPJMxZWO8Dxv6EgSfAUNkTLUrWLqj JXGsJUP9DFEbWHQeXFKzAF5ZUrMwOAQzINOhGgdbODKbQDHzpw1XSHGoCOB3YCNpJhTxWWWmSEZlSZyb DDRmYTQ1PoX5XJIoEJQrCL4EHqHtKRQvTMnoFUIdYV ImPNVyei1MTLTvADG7FkQ3SkFjFKJtZQJvTAboIILvWQC8WAV8IBBvFEAgVJ5IZzDuBQmkXFKHNgq5XH bgI0e4IPSaMT2AY1Vke3TmMdEsKKQEHHahYM4tqyVxPQKsFu6MV2xJNuc1BJRyWpz7IUa2JNRxBYV6HO GpPSCbZekuTAGaDCuhEo1qBABwKbV9OeAwSEZ6JfK3 EaFuYBN2M9JlHYSpCJZzRAYoJlRdZK7WEs3CZqZ4TOI5oMPwOw5XSBa4MaLJNqLbFY0MWCl= ID Date Data Source [id number] 09/17/2019 02:31:15 PM [facility] Name Value Range Interpretation Code Description Data Aby rce(s) Supporting Document(s) Test Name [facility] H ospital Performing Lab [facility] Test Result [facility] ID Date Data Source [id number] 09/17/2019 02:26:44 PM [facility] Name Value Range Interpretation Code Description Data Aby rce(s) Supporting Document(s) Progress Note [facility] LVSPJt8lLcGUWvWr26/XCZojGTAgm6EjHKrzUDa8ZEmlKTDlA5NgQZU5aR9gJGI0ULmYKkMcSaYtWtF0 lbm [file] ICAgICAgICAgICAgICAgICAgICAgICAgICAgICAgIC OqIYGkHYZnNGXuZKEhPJSeKD4EJIEcIZUdGIBkYTKiSGAtBMTnRMGuMNXqDLHfHADrFDMePJUgTSCwZF AgICAgICAgICAgICAgICAgICAgICAgICAgICAgICAgICAgICAgICAgICAgICAgICAgICAgICAgICAgIA 0KICAgICAgICAgICAgICAgICAgICAgICAgICAgICAg ICAgICAgICAgICAgICAgICAgICAgICAgICAgICAgICAgICAgICAgICAgICAgICAgICAgICAgICAgICAg APTeAQQmGNJfFT4EFCClPGHbTKKpHRTrQNAaICBmVVUgTOAjAAUkRNRbQYAcRVWfHVSuYAMzFLVaCBXf ICAgICAgICAgICAgICAgICAgICAgICAgICAgICAgIC JoJGLcSHPqWDViWFWxZDXoVEEcXS1JQBCrAYHfALEyCDNjIUAlWKAlZSSzAZHfSBHnWRSiOKNrOJRnJF AgICAgICAgICAgICAgICAgICAgICAgICAgICAgICAgICAgICAgICAgICAgICAgICAgICAgICAgICAgIC DcKL1LJHGnRXWhOAMvYFCgVDSoGFLdGVEuIRXjCJTz ICAgICAgICAgICAgICAgICAgICAgICAgICAgICAgICAgICAgICAgICAgICAgICAgICAgICAgICAgICAg ZTLpSPFfHNTlLHLeHL6BGKNoSIIrSINbEHBoOAZlRDTbXXAhEVGmELDiDNFdSBMfDPWtVGXcRVBfUTKh ICAgICAgICAgICAgICAgICAgICAgICAgICAgICAgIC OkQQQcBZCwFJSpKJMlEZYuHZYrSUHlMH8ASRWeFYObJHHcPUOwMICdSCOuUBZhQXLrQISmMSXqRYNkLJ AgICAgICAgICAgICAgICAgICAgICAgICAgICAgICAgICAgICAgICAgICAgICAgICAgICAgICAgICAgIC IeREKpDP3MMDAlNWEsULNtVBYtFCJmTKGmXDEmBAJg ICAgICAgICAgICAgICAgICAgICAgICAgICAgICAgICAgICAgICAgICAgICAgICAgICAgICAgICAgICAg YRSjQSDsXJXuITUvWAAyWE3RBALzFTQuWCPtVSKsGAJqOEXrAKUcOZGrBUXfFTNdVMMlSZEcQEHiZWTu ICAgICAgICAgICAgICAgICAgICAgICAgICAgICAgIC QhDDHcQYQuDAJiOWWiHSEjKLYwVBAnKHRxCH0YPI68sUQfj2Z0NIDnZC9izrh/Uh1SQHcijjWhwENpTZ 6NInRxRK0qjp9VUeKcVO2qys1TSEtKBmRfZ1F9rNPjUFOqFKDVBwVgL35eAYwfHd39WVvvEUSqWeDpVP v4Pf9BBvFxK7wvSNHbYkM6GQSyIeJ7ZADpMjAfIQmd CC6Qu2KuhWXwGIq+Qz2QQU7vs4HqYBimPCMlXB9nsw9HYMaHMsQyZ0YepoX1EFJcGGZkOy7OQKGdLOWp mFPkLuMrHKIBSfAqF9DikM80WPORBu3+JNqohyKaXzjUPdBeFKCyu5OqBNd8MX8IWUDlTUh0qAStWJKz M2Tjm7HtJo34SIIaQvtzFHtkeWPnSRivJvFqMUAwzB OfxzowMCFoICYxAW2bVb0oCMZaKXNjWlXrPTYAOQ2BPVBaGDOyyPXxUGVqYPUQJM6RAAjxGAG3UWWuoo UchOCqMQxzLA5HVYFidrLkWyYdBPVPZJa+Gs2PRB3wc3OmEPmcQbNiBC0bue4DFImZCzXdX8O0sGDlS4 U3EDprSt5KPSHtKFDuOEypJQKHYXisMS6LSG1uziE5 YO8NeVTqCKFnDAJlwZJyZZj7W54hmWRuAXqiVJ5AZRD+Mariaa+Nd1BPVPcAQDnJCIaRkHiHMXWJwKbM3Ot X9ZKv7YcW7XdIE40mVxkdfEzWKmkPR4BUQ7aTSWlPKPAJO3GkACifQ4bhmEoKPKkMLFUBuIaJ06stDEc SXNrFHTfRRWnRd0AURUjH7AxdxXpsJaecrGwUMMwMN QAAJ2YVTetekNboKAgcKsuKD06jDprBS8UKk7KHdKkFX2vim5EdNClJh0IEQRpGZ3KFEGxVLVhTYVyVU R9BBMdEvIvYXcnYFKkSNUdYQF2JHTfRGUaFL8UZzWrYIZeVeA1OITpCFKsPPMdcy2CBLXgUDGgEGH9YB OqQCYfHGLxVVjkBLHcFYTyCOO5DOOrYXIjCN5GIqIv TBAhRHD0EHFqKTYdMLByja9ADFLiFUJoTGBtBPJzVPKrBQHzFGpbCKEwVPS9McHlNNXoMGVtRD5SBpMt MCMsHAi5JtwvQQIcPOUqfu7CGRGiWDRuKBSgVdWbIDXwGYEpCWvmPFOvOBA8CiLfZQRsCYDmEM5BPiKt FTSyRRj4ZVYtSNAjTINzti3PLMUyLRTxTXe4IuAiRT QsJTNfXFilYMUqPCC1RNY6BHMkSPTzXN7WAtVgOWZgMQLmJPBuUUPpOXSzkb7BCFDxVKOlVHQhCkJoIY QeZEQqASjkKCHqMQTbXYEoUYNzKBJeDI2IWgHxUJUhVtLvDqDgBWXbFOOxkn5IIOAgYYEqUuL9LmAmEY XgDXNuEAseJLGfGEWjMSA9FTQlVHIjIH4SDtUmYHGz ViZ2MPwiOBKzQCNbjo7MHRFcKKEuNBM7KoOhXKFySSJwBUfwEQRzYAE5GdQ8CJQzLWCtQL2NVuXfSUJd RuO3GGemAHNsZTWczr6KrBScjFxiek3NVFyKZe6MpKadNOC1USeqQi1nbQBtDdUeNCBMDq4UbbLyQTOg OSCHUEucSBPfJUG7XiPcLeQyTfA5OFK4YEDoSAv7PK ZgDMC2ArN9MEowEpB4JDWqKmSjPXYbPhgxQICwJfImGXs0Y7JuYEfgRHctV0L+EB0iHZw+Zr1Rx9Ebio L0mlChWRnkTItuYw5CYMMOI3JYRu== ID Date Data Source [id number] 10/01/2019 11:26:00 AM [facility] Molecular Genetics ReportName: CINDI VALDIVIA LMRN: [id number] Number: [id number] Date: 09/17/2019 00:00Received Date: 09/17/2019 16:23Physician(s): IVA MELCHOR GLORIA JSpecana(s) ReceivedA: [facility] CancerTYPE OF STUDY: BRCA1 & BRCA2 STAT Panel, Multi-Cancer Panel, PancreaticCancer Panel, and 9 individual genesCOMMENTS: A peripheral blood sample [place] [address] for analysis. Please see attached report.jmp /ab Electronically Signed By Chava Nunes, Ph.D., MARTINE BURGOS, [facility] MolecularGeneticist 10/01/2019 11:26:53 Name Value Range Interpretation Code Description Data Aby rce(s) Supporting Document(s) ID Date Data Source [id number] 09/10/2019 07:22:36 PM [facility] Name Value Range Interpretation Code Description Data Aby rce(s) Supporting Document(s) Progress Note [facility] SADUZo1kFsOUHgIr59/IZBwiDUTwn8FkPYqfFMb1WYvmUGUuW1WsMOC2qS8fOAA3KTjIJyOtXqDhSUYz lbm [file] MAA2TvAkNKYlWRy+LV7bVWu+Hz7Pb9NnziY5eqToLWk5EAS2HOueCWOUBs8L ID Date Data Source [id number] 09/10/2019 06:37:41 PM [facility] Name Value Range Interpretation Code Description Data Aby e(s) Supporting Document(s) History and Physical [facility] WXIPPz2dCxQPDlGp14/NYUspDSMlw3OzYQrwBFu0ASwtOKFoM3TfJIF2uN5mESR6DEzPYgRuNeVnQLVu lbm [file] AgICAgICAgICAgICAgICAgICAgICAgICAgICAgICAg TXPoFFRaFGZmAI8XSCMiKQKlARYqSTLiSMYlBUDzWCRlAGEuMVArYKRjXDKcCHJmTDNcGAUaFVRoIRLw RTIyHUDzCPMuULAgGUAsGKPfMTGvHAAoRWTtICXkWGFuSQWgTEWlHGPnXPAxXGHdVOUbMG2VQINmDOGr ICAgICAgICAgICAgICAgICAgICAgICAgICAgICAgIC AgICAgICAgICAgICAgICAgICAgICAgICAgICAgICAgICAgICAgICAgICAgICAgICAgICAgICAgICAgIC TuJO3XZEMfAEXwDWZzKRPfMUWzITNkPCGjIIPmAPOgOIUrSOJpMLSqSRCmVFMfOPLrBVWuOFDlXFRdBO AgICAgICAgICAgICAgICAgICAgICAgICAgICAgICAg XUFiDZTyNHTiUCSsKY9HANMuVIIcZNNkZOMnIXQeICMkEGGlIIVgAUIvULGrFOEuDNWiMXHnYZRhGFWi GEIsPBLmALWdYOFtKJGcOEZuSYNfSYDsZYEmRUJsQRHiYZCxJAMrBXFkDJMeQZWlDARmZGIhQD5KYWKj ICAgICAgICAgICAgICAgICAgICAgICAgICAgICAgIC AgICAgICAgICAgICAgICAgICAgICAgICAgICAgICAgICAgICAgICAgICAgICAgICAgICAgICAgICAgIC YjNMUbCU3CRIHgQMZqBYImJDUkUHDhFZSbOOHfRWVkSEIgODDtFYFjOXOoVJKrLZLsFFObWVVhTZSaLC AgICAgICAgICAgICAgICAgICAgICAgICAgICAgICAg KSDsFRFjRGGnQXEbFFMjVA1GHYZiOGWxSCEuWMNnCEXpPDRqFFUlPTKyPERtHGFqBHNmQPBqZSFkTFSa IQLqTKHtZRNnHNEsZANfGOLfVDBcBSCtATZjADFlNGJtIBXnMIAlMVJyCCGlDQXyOGWgOHAcYJEkSW2Q ICAgICAgICAgICAgICAgICAgICAgICAgICAgICAgIC AgICAgICAgICAgICAgICAgICAgICAgICAgICAgICAgICAgICAgICAgICAgICAgICAgICAgICAgICAgIC YbJXMeFAUvKX4FEHDfEQFgZWRsFQVbEXKwLRJgEXGkSRRpGBPzFUUrFGOxAGMgPJXfLQPgIHIwOSHaZF AgICAgICAgICAgICAgICAgICAgICAgICAgICAgICAg PMGfXJZmWNRmEIMrGCEuPEOfLD0HYV65hKAtb0L6DMFkTF0ozqg/Sw8ZPRwxmrIuuFNsQZ3RPxMmCN0c jo8NRxWnBP6wdm5TTJeVUaHiT5M1oIOaTJYwBCHSLlPzK23kAKokZu76YWboEZBlDeQiCYp7Jp6GUdDy G9igZZKmOcJ0TBQcJdN2SUDbFmKmOZcbWD6Pm0KnmD AyDQo+Dh1DSP0xv3GmJDcyWgCqLG1qos0FHPcAUjKhK5EnymO8ZTF2KPCsWg3YMXDgZMYlxDUpXDExDW OFPtSvB1GkuI14LKQDTf3+NIwemyZeLimDErV1ZXWqr0VhGVu2BJ7PVFZdBKp9gAItNDVEZOG3GK00qT WosXKeAU1hLBMbSahoDDRvAEJvNH7iNX2zKOVlTLI7 CbY1ASAGJQ9IQLAhDBBxnTVhPGMjQSAZBO8TUJloRRR1RYMdemOugIJhMXxhMO1VLLKuyqIaSazcHZWL DQo+Aj4JFC1ml4LqWIgaFXNeXV9ksb3AKYcJYqWiU9L1xVZiU4L6DQjlJf5TDNBtHEAhXpDdJGASQAfw JC1UZN1wqyB9PT1PxZZiJMMmUYHxlQLyTKu2J44yuP ZdICbpUG6INEU+Mariaa+Tc9JSCTzXMQxXRJxFlVuWNCIQvYzA2TdE9CPj1WnH0JgPY43oDlhxtCtPZbmLV 2JMM9aOLPdMEOORG4WfKGuwA7zcvGfJgJxPLRWQeCiK97wyZNjCEOoFXH3PPUbBh0PQFLpS5YidbMpxV xzhtReFHXcTMZGKQ9RRTgrexEieLEltZtmXY59yNen ZU7VOe8YViJnFK7zfi6HzJPlPt8MKAJhNV9REPIyFIXdQZVrSOK5NGJlFyMeYNndNTLuAJAqSEI6VOYq DUGrOF1QIdHoXVEgYrK6KtAoQEOeKLKoxi8EJEBgXHWbKPUfHvTcKATbTOGgGFqjRVErCAUkYOO6TICw BVTxLS0ULbBlAMXoOKWwMNYmBGYdPTYrcd4GKOMtEA OiMjHyGkWvKAOpDWRwZDnbCTKfOTD4AhXtLAXsPYAbKT6CLoBkHHHjBYC8IOmtWNKuZPIyfo9UYIZtXE SnVze0HzHzCUAyIPZaBYkoPJGoJLB0FAEvEBAuSKWxOP3BHwLoQBUpMQqhGETcIFUiYJPgzh8ITQZrVY ZtVYFnUaNeOICeYAIwMZztVNZkHBI4PlY1EEDnNHNn EG6RQvIlFBMxUBu5WRXoHWBkZBKqgy2RBSSnZVZvRMC9PlZbRKPeUMIuRPbwJFHvLBC6QjZ5XMFxLSGf RN2EGuVrHZHpBZc2ZyFgNYPgMNRzbz7ZDSBqNYGmJMCcCzQwJUBdQDUtYHczWZOjBTHfKIA6JUJkIKJb TG6OAeEwCAIxKlM6LWZqLLLoHJLjtr8LVBWcLIDkHM q0MjFtRPRdXREwAXlzCNSaAGZxYYI3KIEeTPAqSG3QUsViWLVgLhXsOpTvVCQfZVZzfe6QONVmUBAoCx Z0ALGzVJEnEMPkNAsgVPZkVTZyZFA6VUKuYLKlCG1WQvXnPVBsHhR0NkWeWUTfQEWorq3ZNNLmLGVdNI GuMvUkUHVwZMDhBUzvTDKsENE5Piq4FCMbMLIuWA4H YiNmWDEfGhT4BzWnHTVgMZOyyr3SdTZctUnatl5PQTeZNk9QtOlzETMuVVunAu7hbZXgDAIyKRYOBi4H zvEuEMYrJHIOFSapMKFcULVxLaM2YmMcLBQkSaOkI2ClWtF1KzF2RvQqOlreFDA6RbJ7WPW4NLSzPHYq DwIdY7C8UgI0CAGeYyD9MBGdGDEzUgq+OE7jUPq+Be4Pq1IcowK5fvQpKBqwWEh4IP3ECZJXC0XFDy== ID Date Data Source [id number] 09/14/2019 04:12:00 PM [facility] CYTOPATHOLOGY REPORTName: MALIK VALDIVIA LMRN: [id number] Number: [id number] Date: 09/10/2019 00:00Received Date: 09/11/2019 13:25Physician(s): OXANA URIOSTEGUI O OXANA URIOSTEGUI O Specimen(s) ReceivedA: PANCREAS, ENDOSCOPIC, ULTRASOUND GUIDED, FINE NEEDLE ASPIRATIONClinical History:History of pancreatic head mass observed on imaging. DiagnosisPANCREAS, ENDOSCOPIC, ULTRASOUND GUIDED, FINE NEEDLE ASPIRATION: POSITIVEFOR MALIGNANCY, ADENOCARCINOMAComment/bg/calReviewing Cytotech: Rosalba Alva, , [place] (ASCP)YVONNE Bear M.D.Electronically Signed By Anna Spivey M.D. 09/14/2019 16:12:50The attending pathologist named above attests that he/she has personallyreviewed the relevant preparation(s) for the specimen(s) and rendered thefinal diagnosis. Microscopic DescriptionThe specimen is composed of malignant cells appearing in large dyscohesivegroups with overlapping nuclei, high nuclear to cytoplasmic ratio,irregular nuclear membranes and hyperchromasia. Necrotic debris is notedin the background. The cell block shows similar malignant features./bg/calGross Description7 slides received for Diff Quik stain, 1 slides received fixed for Papstain and 11 ml RPMI needle rinse with white sediment material withaggregate dimension of 0.2 x 0.2 x 0. cm submitted for cell block.This report may include one or more immunohistochemical stain results thatuse analyte specific reagents. All positive and negative controls havebeen reviewed by the attending pathologist and are satisfactory. The testswere developed and their performance characteristics determined by [facility] Pathololgy department. They have not been cleared or approved by Lily Food and Drug Administration. The FDA has determined that suchclearance or approval is not necessary. Name Value Range Interpretation Code Description Data [facility] rce(s) Supporting Document(s) ID Date Data Source [id number] 09/07/2019 12:58:13 PM [facility] Name Value Range Interpretation Code Description Data [facility](s) Supporting Document(s) Progress Note [facility] JVDXAo2oMgDBIcEu54/GWRqaUQWrx9RoIBriRFc3IEexKUGlY4XsEHL5tI1yIFV9BAbYAxQeRaDbPFA4 [facility] [file] [id number]/f3gkk9nzjL1P05T3m2xyP3EkuqAxV7490/sQ17kATFJbhkcUH+MzbX2f/mill helper/S5mHJ [file] /x/web marketing specialist/YDD4R81a04f1635pkjD46/S6zdZ+SuP+GpT0LXoPXWHsa51kZBBKachHtnKZfXR7Lbc0kZglx quJvuXqlEsr+pZKYoVcYaq0gIe93EqZuoegLvR0kFM GRTxnsQgzlzsGk7Oi8cRr2GFwee1PMUM4PhVlh1ZA6+NKqVbwpNRmA+oh3tZKeC2k0DIk++wrAzBYXcj Hoo8s9/tx9enF3XkWE2KU4PnqIu4lGbcAOl3rvUfPFJZuWQEeiOGm8/Qc9beXm3B6+hVEF+gcLfdvmmQ aUnh0pRJnMk1PO+49/S1rH6grrkxy98Fmc/q2jekpm Pe2n89dd30tQItl2SFWI6/8ur6YOfMD2Ek/EoRmnk4PxeFMOPXRRL3bHtg7LbZ0+xr85Mnp093pbigsp 7R8lp4RU0fk/17ndM7/5mqbe6dplILQr20Y5Q7xIy/Out+9og/CGkmQcEkpSAZSH3c82C0iWGQ5H/gYF oM97GKhIKSySE/T5IdWwELq5apXm2QImGF4zfP/Jayy lk+TZbwHz6BVBQ+TApqeU7otYwgYH2sjWT/1T6WZIeEZzK2q4p3lfYvZXmExUJYqwdKZUzSE6EiEJheD 8NxvoSG+4UpLy+xkZACWCSa3qkFM0T8pt92CeZi/WWL7S+SANJU+672LPzImO0HiUlKZ/Zq19nDWUoc6zK [file] AgICAgICAgICAgICAgICAgICAgICAgICAgICAgICAgICAgICAgICAgICAgICAgICAgICAgICAgICAgIC AgICAgICAgICAgICAgICANCiAgICAgICAgICAgICAgICAgICAgICAgICAgICAgICAgICAgICAgICAgIC AgICAgICAgICAgICAgICAgICAgICAgICAgICAgICAg ICAgICAgICAgICAgICAgICAgICAgICAgICANCiAgICAgICAgICAgICAgICAgICAgICAgICAgICAgICAg ICAgICAgICAgICAgICAgICAgICAgICAgICAgICAgICAgICAgICAgICAgICAgICAgICAgICAgICAgICAg ICAgICAgICANCiAgICAgICAgICAgICAgICAgICAgIC AgICAgICAgICAgICAgICAgICAgICAgICAgICAgICAgICAgICAgICAgICAgICAgICAgICAgICAgICAgIC AgICAgICAgICAgICAgICAgICANCiAgICAgICAgICAgICAgICAgICAgICAgICAgICAgICAgICAgICAgIC AgICAgICAgICAgICAgICAgICAgICAgICAgICAgICAg ICAgICAgICAgICAgICAgICAgICAgICAgICAgICANCiAgICAgICAgICAgICAgICAgICAgICAgICAgICAg ICAgICAgICAgICAgICAgICAgICAgICAgICAgICAgICAgICAgICAgICAgICAgICAgICAgICAgICAgICAg ICAgICAgICAgICANCiAgICAgICAgICAgICAgICAgIC AgICAgICAgICAgICAgICAgICAgICAgICAgICAgICAgICAgICAgICAgICAgICAgICAgICAgICAgICAgIC AgICAgICAgICAgICAgICAgICAgICANCiAgICAgICAgICAgICAgICAgICAgICAgICAgICAgICAgICAgIC AgICAgICAgICAgICAgICAgICAgICAgICAgICAgICAg ICAgICAgICAgICAgICAgICAgICAgICAgICAgICAgICANCiAgICAgICAgICAgICAgICAgICAgICAgICAg ICAgICAgICAgICAgICAgICAgICAgICAgICAgICAgICAgICAgICAgICAgICAgICAgICAgICAgICAgICAg ICAgICAgICAgICAgICANCiAgICAgICAgICAgICAgIC AgICAgICAgICAgICAgICAgICAgICAgICAgICAgICAgICAgICAgICAgICAgICAgICAgICAgICAgICAgIC AgICAgICAgICAgICAgICAgICAgICAgICANCjw/mPCtC0bhyDIrsrT0G0tzIf1HOu8TIE0ai1LaHNLqNI uijpQgPyrAUrNhILBxHalZKby7SXswOW7NaCNiV4Ly W9HiJSkoUH9SXPDzXAXpxSIsWSSrZFQlHoL7KCYkSToaHY3UpCCcXNbuCXTzCDYhTeQgPRLcULWiGYCh OGYdTLXPSO8EFmWdN9QhvD35AOZTOm9+AQevhzSxAxpNCxIbAJWfs8UnGVk6VO7LMBScHhjkl8AlAiPx ZCACPVhrCF1VHOD7RHAuPWPaQr3FYXIpG478lbGdHD 3QMj2MMkLxLQ3rom4ZWuPkUTXkBxhAUmp1XWibGL7AcPNdFEiAol7kjwXxscXRc5PyfkJpqFKVduUrMR nyMwxusHVxgVXzNFGRNZBjdJJjWcR1LiRmGxFtFDF7NBZbFV4zPCcrOL9BESM1OBbkAHGnJCYmE7lVPi SaWLFhLwSacVnbRR9NSjYuJ8UxpyHrqTOwTrVvQEAK Cj4+VUuqfrPpYjhFUzG4KZSua0HnHZn9QJ8JVTPpQUxaAW2JBEGqmV4yGJcrDY8PWtOmAHPeLYRPUuDs Q62muPSwSXp3G3DlJpHtDQWrMiyrTWQnKXeoPfMbKPDcKxNbWIlmBP0+ID4+QCnnFQ2RCLfadfGvBUVn Am3PEMMaQMWvWD4yLGNgHAHiC6A1yWgiJCJOCuCaF4 rkjodvKQ5gEARfY789xCcmzmXoRIJeTMCmOe2NIVBuEQP3UATmzDDpGeYnGELLJLgqSV0QaPGkFGS4yM 7yIQfwDNTyCACgI4eIXsEsjJoyAA78jZtvxeHdnNAsAXg+Hn1GEE4nq8FdMMk7eeEkWIfoJWA6OXgwXG InILVwHLNePUW7YZN0WSGJLbSzRJIoSMJrRLglYZAu XHMway0EQMFmWUY2YVymYNDbVPIqBOFhZCacBDWqBUZ2WIO2JKJyVFKeAX6HXsDrMGVxNJXdNIsmAVWt GLYbjw0VKUZrXHPrEdC4XIJrGDJjDACqFZcrOTSpTGPnTNBfMHGrUCItBP0AEwUfEOHpEDW6ETQyAYHp OWMwds9CKXNpTPSwMuO2CUZiMJNfGBJjGDmqXJRaIZ R8AFArRFAjLANlMK0UDnWhCFJmMLk6IwrkKEGmBVPifo7IINHjSPOcLRogDUPdPBMgUSEeCGdeXGUdCP IjAYO3LWSmSVAwMY9MBpClYFNaYIL1MPBgMYFkGIHbxg3UJKLrOWAeCjF2VxJdKNFvNCTwWRxyXVGcDP FbFtj3SLZsNXUkEX6LMjAmDLQaYYHiPeAlXPQrCVTz do3PZMRpYNJfDcOeLjJuHVQnJHAqVAvcYKHeRRKwYtP1BXNjPVVsMQ9KAsZxYOSzMMB6RbmjUGYlBFOm du4IGTApLYD8VSZ8CUFrSBZpSTQrTBztXOZjIMF5NKW2STYiPWSsWS4DKuKjEIXoXYZdBCivMFPoYDFg mq8DVAXdSIG8ShUnEeIoOFBfHEItTNkcOAYwZWG4If O0KYCrWXJwMD5RUiSpLICrNCq1KiGpRDSzEKIsxk5MUXIrPBH1SazxTzHtWOAjJBYcUYxxLKJnBTI7SE opRVKsZHHmKL0WHrNsQDInKJOuZnivJREtIJRdcp0UVZRjPOG5OwCxNzFeIVFmYGWySXijRPQrNHD6Wp IpFECaRKSvVY9QUuVoFGRyMwMhMCDdOYThVZIyeu6K IQXxHRR8ZbK3PqUdUZUhRDZsUOtnASYgWAO9QqX1EHPdADGiMX7ENnSyCUMbLxp6DlFcPCFsXGFtwr2J wYXoiYllyf9KSCbNPb6OjZqjPAI8UQuwFb7wgDGkFHArSRDCNy4WsqPjFLQmZGBDTHfaVCIdKNTtEuFm GaOvK1R6RbPrOwS3XpDbPaQpVADfWlSkYQF0IeA2N2 VgMLJmXIYsWguzERGaCpQtXMZiIEN7DUU7J4Z9RPm+BA8rIAo+Ai4Qg4PskaZ7yiNdMJcmJcxiIUrDYx BwXP1YWWs= ID Date Data Source [id number] 09/07/2019 01:51:48 PM [facility] Name Value Range Interpretation Code Description Data [facility]by rce(s) Supporting Document(s) Leukocytes [#/volume] in Blood by Automated count 6.1 10*3/uL 4-10 [facility] Erythrocytes [#/volume] in Blood by Automated count 3.89 10*6/uL 4.1- 5.3 L [facility] Hemoglobin [Mass/volume] in Blood 11.8 g/dL 11.5-15.5 [facility] Hematocrit [Volume Fraction] of Blood by Automated count 36.0 % 3 6-45 [facility] Erythrocyte mean corpuscular volume [Entitic volume] by Auto mated count 92.6 fL 80-96 [facility] Erythrocyte mean corpuscular hemoglobin [Entitic mass] by Automated count 30.2 pg 27-33 [facility] Erythrocyte mean corpuscular hemoglobin concentration [Mass/volume] by Automated count 32.7 g/dL 32.0-36.0 [facility] Erythrocyte distribution width [Ratio] by Automated count 12.8 % 11.5-14.5 [facility] Platelets [#/volume] in Blood by Automated count 285 10*3/uL 150-400 [facility] ID Date Data Source [id number] 09/07/2019 02:25:49 PM [facility] Name Value Range Interpretation Code Description Data Aby rce(s) Supporting Document(s) Albumin [Mass/volume] in Serum or Plasma by Bromocresol green (BCG) dye binding method 4.2 g/dL 3.5-5.2 [facility] al Bilirubin.total [Mass/volume] in Serum or Plasma 0.5 mg/dL <1.2 [facility] Calcium [Mass/volume] in Serum or Plasma 9.1 mg/dL 8.8-10.2 [facility] Chloride [Moles/volume] in Serum or Plasma 108 mmol/L 98-107 [facility] Creatinine [Mass/volume] in Serum or Plasma 0.58 mg/dL 0.50-0.90 [facility] Glucose [Mass/volume] in Serum or Plasma 109 mg/dL 70-140 [facility] Alkaline phosphatase [Enzymatic activity/volume] in Serum or Plasma 473 U/L 35-104 [facility] Potassium [Moles/volume] in Serum or Plasma 3.6 mmol/L 3.4-5.1 [facility] Protein [Mass/volume] in Serum or Plasma 6.6 g/dL 6.4-8.3 [facility] Sodium [Moles/volume] in Serum or Plasma 144 mmol/L 136-145 [facility] Aspartate aminotransferase [Enzymatic activity/volume] in Serum or Plasma 203 U/L <32 [facility] Urea nitrogen [Mass/volume] in Serum or Plasma 7 mg/dL 8-23 L [facility] Osmolality of Serum or Plasma by calculation 297 mosm/kg 275-300 [facility] Creatinine/Urea nitrogen [Mass Ratio] in Serum or Plasma 12 [facility] Bicarbonate [Moles/volume] in Serum 26 mmol/L 22-29 [facility] Alanine aminotransferase [Enzymatic activity/volume] in Seru m or Plasma 173 U/L <33 [facility] Anion gap 3 in Serum or Plasma 10 mmol/L 8-15 [facility] Albumin/Globulin [Mass Ratio] in Serum or Plasma 1.8 [facility] Glomerular filtration rate/1.73 sq M pre dicted among non-blacks [Volume Rate/Area] in Serum or Plasma by Creatinine-based formula (MDRD) >6 0 [facility] Glomerular filtration rate/1.73 sq M pre dicted among blacks [Volume Rate/Area] in Serum or Plasma by Creatinine-based formula (MDRD) >60 [facility] ID Date Data Source [id number] 09/07/2019 03:24:59 PM [facility] Name Value Range Interpretation Code Description Data Aby rce(s) Supporting Document(s) Cancer Ag 19-9 [Units/volume] in Serum or Plasma 614.0 U/mL <35.0 H [facility] This test uses [place] 19-9 electrochem iluminescent immunoassay. Results obtained with different test methods or kits cannot be used interchangeably. CA 19-9 is useful in monitoring pancreatic, hepatobiliary, gastric, hepatocelllular, and colorectal cancer. CA 19-9 value regardless of level, should not be interpreted as absolute evidence of the presence or absence of malignant disease. ID Date Data Source [id number] 09/07/2019 03:24:59 PM EST [facility] Name Value Range Interpretation Code Description Data Aby rce(s) Supporting Document(s) Carcinoembryonic Ag [Mass/volume] in Serum or Plasma 5.0 ng/ml <3.4 [facility] Levels of CEA should not be interpreted as absoulute evidence of the presence or absence of disease. It should not be used as a screening test for Cancer. CEA values obtained using different methodologies cannot be used interchangeably. This method is manufactured by [employer] and is an electrochemiluminesence immunoassay. ID Date Data Source [id number] 08/30/2019 03:58:00 AM EST [facility] ([facility]) Name Value Range Interpretation Code Description Data Aby rce(s) Supporting Document(s) Reflex Urine Culture FULL REPORT IN L <SEE NOTE> Normal (applies to non- numeric results) [facility] ([facility]) FULL REPORT IN LAB NOTES ([facility]CW and [facility] ). SPECIMEN APPEARS CONTAMINATED ID Date Data Source [id number] 08/30/2019 03:58:00 AM EST [facility] ([facility]) Name Value Range Interpretation Code Description Data Aby rce(s) Supporting Document(s) Appearance, Urine RFX CLEAR Normal (applies to non-nu meric results) [facility] ([facility]) Color, Urine RFX YELLOW Normal (applies to non-numeric results) [facility] ([facility]) PH,Urine RFX 5.0 units 5.0-9.0 Normal (applies to non-numeric res ults) [facility] ([facility]) Specific [place] Ur Auto RFX >1.060 1.002-1.035 Above high normal [facility] ([facility]) Glucose, Urine (Ua) Auto RFX NEGATIVE mg/dL Nor mal (applies to non-numeric results) [facility] ([facility]) Protein, Urine Auto RFX NEGATIVE mg/dL Normal ( applies to non-numeric results) [facility] ([facility]) Ketone, Urine Auto RFX TRACE mg/dL Above high normal [facility] ([facility]) Nitrite, Urine Auto RFX NEGATIVE Normal (applies to non- numeric results) [facility] ([facility]) Urobilinogen, Urine Auto RFX 0.2 mg/dL 0.0-2.0 Nor mal (applies to non-numeric results) [facility] ([facility]) Bilirubin, Urine Auto RFX NEGATIVE Normal (applies to no n-numeric results) [facility] ([facility]) Blood, Urine Blood RFX NEGATIVE Normal (applies to non-n umeric results) [facility] ([facility]) WBC, Urine Auto RFX 2 /HPF 0-3 Normal (applies to non-nume clarissa results) [facility] ([facility]) Leukocyte Esterase Ur Auto RFX TRACE Above high teodora l [facility] ([facility]) RBC, Urine Auto RFX 3 /HPF 0-3 Normal (applies to non-nume lcarissa results) [facility] ([facility]) Bacteria, Urine Auto RFX NEGATIVE Normal (applies to non -numeric results) [facility] ([facility]) Squam Epithelial Cell Ur Aurfx 5 /HPF 0-6 N ormal (applies to non-numeric results) [facility] ([facility]) Mucus, Urine RFX SMALL Normal (applies to non-numeric results) [facility] ([facility]) Hyaline Cast, Urine Auto RFX 0 /LPF 0-1 Normal (appl ies to non-numeric results) [facility] ([facility]) ID Date Data Source [id number] 08/29/2019 10:57:00 PM EST [facility] ([facility]) Name Value Range Interpretation Code Description Data Aby rce(s) Supporting Document(s) Lipase [Enzymatic activity/volume] in Serum or Plasma 409 U/L 73-393 Above high normal [facility] ([facility]) ID Date Data Source [id number] 08/29/2019 10:57:00 PM EST [facility] ([facility]) Name Value Range Interpretation Code Description Data Aby rce(s) Supporting Document(s) Blood Urea Nitrogen 13 mg/dL 7-18 Normal (applies to non-nume clarissa results) [facility] ([facility]) Glucose, Fasting 151 mg/dL 70-100 Above high normal [facility] ([facility]) Glomerular Filtration Rate > 60.0 Normal (applies to n on-numeric results) [facility] ([facility]) <content>Units are mL/min/1.73 m2</content>
<content></content>
<content>Chronic Kidney Disease Staging per NKF:</content>
<content></content>
<content>Stage I & II GFR >=60 Normal to Mildly Decreased</content>
<content>Stage III GFR 30-59 Moderately Decreased</content>
<content>Stage IV GFR 15-29 Severely Decreased</content>
<content>Stage V GFR <15 Very Little GFR Left</content>
<content>ESRD GFR <15 on FARM [employer]NAG[employer] SUPER[employer]</content>
<content></content> Creatinine For GFR 0.56 mg/dL 0.55-1.30 Normal (applies to non -numeric results) [facility] ([facility]) Potassium Serum 4.3 meq/L 3.5-5.1 Normal (applies to non-numeric results) [facility] ([facility]) Testing was performed on a SLIGHTLY hemo lyzed specimen. Suggest recollection of specimen for more accurate test results. Chloride Level 112 meq/L 98-107 Above high normal [facility] ([facility]) Sodium Level 142 meq/L 136-145 Normal (applies to non-numeric res ults) [facility] ([facility]) Calcium Level 8.5 mg/dL 8.8-10.2 Below low normal [facility] ([facility]) Carbon Dioxide Level 22 meq/L 21-32 Normal (applies to non-num grady results) [facility] ([facility]) Anion Gap 8 meq/L 8-16 Normal (applies to non-numeric resul ts) [facility] ([facility]) ID Date Data Source [id number] 08/29/2019 10:57:00 PM EST [facility] ([facility]) Name Value Range Interpretation Code Description Data Aby rce(s) Supporting Document(s) Ast/Sgot 28 U/L 7-37 Normal (applies to non-numeric resul ts) [facility] ([facility]) Alt/SGPT 28 U/L 12-78 Normal (applies to non-numeric resul ts) [facility] ([facility]) Bilirubin,Total 0.4 mg/dL 0.2-1.0 Normal (applies to non-numeric results) [facility] ([facility]) Alkaline Phosphatase 111 U/L 45-117 Normal (applies to non-num grady results) [facility] ([facility]) Bilirubin,Direct < 0.1 mg/dL 0.0-0.2 Normal (applies to non-numeri c results) [facility] ([facility]) Total Protein 6.8 GM/DL 6.4-8.2 Normal (applies to non-numeric re sults) [facility] ([facility]) Albumin 3.6 GM/DL 3.2-5.2 Normal (applies to non-numeric resul ts) [facility] ([facility]) Albumin/Globulin Ratio 1.13 1.00-1.93 Normal (applies to non-numeric results) [facility] ([facility]) ID Date Data Source [id number] 08/29/2019 10:57:00 PM EST [facility] ([facility]) Name Value Range Interpretation Code Description Data Aby rce(s) Supporting Document(s) Red Blood Count 4.27 10 4.00-5.40 Normal (applies to non-numeric results) [facility] ([facility]) Hemoglobin 13.1 g/dL 12.0-15.5 Normal (applies to non-numeric resul ts) [facility] ([facility]) White Blood Count 14.2 10 4.0-10.0 Above high normal [facility] ([facility]) Hematocrit 40.0 % 36.0-47.0 Normal (applies to non-numeric resul ts) [facility] ([facility]) Mean Corpuscular Volume 93.7 fl 80.0-96.0 Normal ( applies to non-numeric results) [facility] ([facility]) Mean Corpuscular Hemoglobin 30.7 pg 27.0-33.0 Norm al (applies to non-numeric results) [facility] ([facility]) Mean Corpuscular HGB Conc 32.8 g/dL 32.0-36.5 Normal (applies to non-numeric results) [facility] ([facility]) Red Cell Distribution Width 11.8 % 11.5-14.5 Norm al (applies to non-numeric results) [facility] ([facility]) Lymph % 9.0 % 24.0-44.0 Below low normal [facility] ( [facility]) Neutrophils % 87.8 % 36.0-66.0 Above high normal [facility] ([facility]) Platelet Count, Automated 262 10 150-450 Normal (applies to non-numeric results) [facility] ([facility]) [place] % 2.8 % 0.0-5.0 Normal (applies to non-numeric resul ts) [facility] ([facility]) Eos % 0.0 % 0.0-3.0 Normal (applies to non-numeric resul ts) [facility] ([facility]) Nucleated Red Blood Cell % 0.0 % 0-0 Normal (applies to n on-numeric results) [facility] ([facility]) Immature Granulocyte % 0.2 % 0-3.0 Normal (applies to non-n umeric results) [facility] ([facility]) Baso % 0.2 % 0.0-1.0 Normal (applies to non-numeric resul ts) [facility] ([facility]) [place] # 0.4 10 0.0-0.8 Normal (applies to non-numeric resul ts) [facility] ([facility]) Lymph # 1.3 10 1.5-5.0 Below low normal [facility] ( [facility]) Neutrophils # 12.5 10 1.5-8.5 Above high normal [facility] ([facility]) Baso # 0.0 10 0.0-0.2 Normal (applies to non-numeric resul ts) [facility] ([facility]) Eos # 0.0 10 0.0-0.5 Normal (applies to non-numeric resul ts) [facility] ([facility]) ID Date Data Source [id number] 08/23/2019 10:51:00 AM EST [facility] ([facility]) Name Value Range Interpretation Code Description Data [place] rce(s) Supporting Document(s) Appearance, Urine RFX HAZY Normal (applies to non-nu meric results) [facility] ([facility]) Color, Urine RFX YELLOW Normal (applies to non-numeric results) [facility] ([facility]) PH,Urine RFX 5.0 units 5.0-9.0 Normal (applies to non-numeric res ults) [facility] ([facility]) Specific [place] Ur Auto RFX 1.011 1.002-1.035 Nor mal (applies to non-numeric results) [facility] ([facility]) Glucose, Urine (Ua) Auto RFX NEGATIVE mg/dL Nor mal (applies to non-numeric results) [facility] ([facility]) Protein, Urine Auto RFX 1+ mg/dL Above high normal [facility] ([facility]) Ketone, Urine Auto RFX NEGATIVE mg/dL Normal (applies to non-numeric results) [facility] ([facility]) Urobilinogen, Urine Auto RFX 0.2 mg/dL 0.0-2.0 Nor mal (applies to non-numeric results) [facility] ([facility]) Bilirubin, Urine Auto RFX NEGATIVE Normal (applies to no n-numeric results) [facility] ([facility]) Nitrite, Urine Auto RFX NEGATIVE Normal (applies to non- numeric results) [facility] ([facility]) WBC, Urine Auto RFX 1 /HPF 0-3 Normal (applies to non-nume clarissa results) [facility] ([facility]) Leukocyte Esterase Ur Auto RFX NEGATIVE N ormal (applies to non-numeric results) [facility] ([facility]) Blood, Urine Blood RFX NEGATIVE Normal (applies to non-n umeric results) [facility] ([facility]) Bacteria, Urine Auto RFX 1+ Above high normal [facility] ([facility]) RBC, Urine Auto RFX 1 /HPF 0-3 Normal (applies to non-nume clarissa results) [facility] ([facility]) Squam Epithelial Cell Ur Aurfx 5 /HPF 0-6 N ormal (applies to non-numeric results) [facility] ([facility]) Mucus, Urine RFX SMALL Normal (applies to non-numeric results) [facility] ([facility]) Hyaline Cast, Urine Auto RFX 0 /LPF 0-1 Normal (appl ies to non-numeric results) [facility] ([facility]) ID Date Data Source [id number] 08/23/2019 10:37:00 AM EST [facility] ([facility]) Name Value Range Interpretation Code Description Data Aby rce(s) Supporting Document(s) White Blood Count 8.6 10 4.0-10.0 Normal (applies to non-numeri c results) [facility] ([facility]) Red Blood Count 4.45 10 4.00-5.40 Normal (applies to non-numeric results) [facility] ([facility]) Hematocrit 42.5 % 36.0-47.0 Normal (applies to non-numeric resul ts) [facility] ([facility]) Hemoglobin 13.6 g/dL 12.0-15.5 Normal (applies to non-numeric resul ts) [facility] ([facility]) Mean Corpuscular Volume 95.5 fl 80.0-96.0 Normal ( applies to non-numeric results) [facility] ([facility]) Mean Corpuscular HGB Conc 32.0 g/dL 32.0-36.5 Normal (applies to non-numeric results) [facility] ([facility]) Mean Corpuscular Hemoglobin 30.6 pg 27.0-33.0 Norm al (applies to non-numeric results) [facility] ([facility]) Red Cell Distribution Width 11.9 % 11.5-14.5 Norm al (applies to non-numeric results) [facility] ([facility]) Platelet Count, Automated 221 10 150-450 Normal (applies to non-numeric results) [facility] ([facility]) Neutrophils % 65.0 % 36.0-66.0 Normal (applies to non-numeric re sults) [facility] ([facility]) [place] % 5.3 % 0.0-5.0 Above high normal [facility] ([facility]) Eos % 0.9 % 0.0-3.0 Normal (applies to non-numeric resul ts) [facility] ([facility]) Lymph % 28.2 % 24.0-44.0 Normal (applies to non-numeric resul ts) [facility] ([facility]) Nucleated Red Blood Cell % 0.0 % 0-0 Normal (applies to n on-numeric results) [facility] ([facility]) Baso % 0.4 % 0.0-1.0 Normal (applies to non-numeric resul ts) [facility] ([facility]) Immature Granulocyte % 0.2 % 0-3.0 Normal (applies to non-n umeric results) [facility] ([facility]) [place] # 0.5 10 0.0-0.8 Normal (applies to non-numeric resul ts) [facility] ([facility]) Neutrophils # 5.6 10 1.5-8.5 Normal (applies to non-numeric re sults) [facility] ([facility]) Lymph # 2.4 10 1.5-5.0 Normal (applies to non-numeric resul ts) [facility] ([facility]) Eos # 0.1 10 0.0-0.5 Normal (applies to non-numeric resul ts) [facility] ([facility]) Baso # 0.0 10 0.0-0.2 Normal (applies to non-numeric resul ts) [facility] ([facility]) ID Date Data Source [id number] 08/23/2019 10:37:00 AM EST [facility] ([facility]) Name Value Range Interpretation Code Description Data Aby rce(s) Supporting Document(s) CK-MB Value Mass 1.9 ng/mL Normal (applies to non-numeric results) [facility] ([facility]) CPK Creatine Phosphokinase 131 U/L 26-192 Teodora l (applies to non-numeric results) [facility] ([facility]) MB/CK Relative Index 1.45 Normal (applies to non-num grady results) [facility] ([facility]) <content>DIAGNOSIS CRITERIA</content>
<content>MMB ng/ml Relative Index (RI)</content>
<content>NON-AMI < or = 5 N/A</content>
<content>OLEA ZONE > 5 < or = 4</content>
<content>AMI > 5 > 4</content>
<content></content> Troponin I < 0.02 ng/mL Normal (applies to non-numeric res ults) [facility] ([facility]) <content>Troponin I Reference Interval f or Siemens [place] LOCI:</content>
<content></content>
<content>99th Percentile= 0.00-0.045 ng/ml</content>
<content></content>
<content>Risk Stratification:</content>
<content><= 0.10 ng/ml Decreased Risk for Adverse Clinical</content>
<content>Events.</content>
<content>0.10-1.50 ng/ml Increased Risk for Adverse Clinical</content>
<content>Events. Evaluation of additional</content>
<content>criterion and/or repeat testing in 2-6</content>
<content>hours is suggested to rule out myocardial</content>
<content>damage.</content>
<content>>= 1.50 ng/ml Indicative of Myocardial Injury.</content>
<content></content> ID Date Data Source [id number] 08/23/2019 10:37:00 AM EST [facility] ([facility]) Name Value Range Interpretation Code Description Data Aby rce(s) Supporting Document(s) Ast/Sgot 19 U/L 7-37 Normal (applies to non-numeric resul ts) [facility] ([facility]) Alt/SGPT 24 U/L 12-78 Normal (applies to non-numeric resul ts) [facility] ([facility]) Alkaline Phosphatase 91 U/L 45-117 Normal (applies to non-num gardy results) [facility] ([facility]) Bilirubin,Total 0.6 mg/dL 0.2-1.0 Normal (applies to non-numeric results) [facility] ([facility]) Bilirubin,Direct 0.2 mg/dL 0.0-0.2 Normal (applies to non-numeric results) [facility] ([facility]) Albumin/Globulin Ratio 1.21 1.00-1.93 Normal (applies to non-numeric results) [facility] ([facility]) Albumin 4.1 GM/DL 3.2-5.2 Normal (applies to non-numeric resul ts) [facility] ([facility]) Total Protein 7.5 GM/DL 6.4-8.2 Normal (applies to non-numeric re sults) [facility] ([facility]) ID Date Data Source [id number] 08/23/2019 10:37:00 AM EST [facility] ([facility]) Name Value Range Interpretation Code Description Data Aby rce(s) Supporting Document(s) Glucose, Fasting 95 mg/dL 70-100 Normal (applies to non-numeric results) [facility] ([facility]) Creatinine For GFR 0.73 mg/dL 0.55-1.30 Normal (applies to non -numeric results) [facility] ([facility]) Glomerular Filtration Rate > 60.0 Normal (applies to n on-numeric results) [facility] ([facility]) <content>Units are mL/min/1.73 m2</content>
<content></content>
<content>Chronic Kidney Disease Staging per NKF:</content>
<content></content>
<content>Stage I & II GFR >=60 Normal to Mildly Decreased</content>
<content>Stage III GFR 30-59 Moderately Decreased</content>
<content>Stage IV GFR 15-29 Severely Decreased</content>
<content>Stage V GFR <15 Very Little GFR Left</content>
<content>ESRD GFR <15 on [employer]ARM [employer]PER[employer]</content>
<content></content> Blood Urea Nitrogen 11 mg/dL 7-18 Normal (applies to non-nume clarissa results) [facility] ([facility]) Potassium Serum 4.2 meq/L 3.5-5.1 Normal (applies to non-numeric results) [facility] ([facility]) Sodium Level 141 meq/L 136-145 Normal (applies to non-numeric res ults) [facility] ([facility]) Chloride Level 108 meq/L 98-107 Above high normal [facility] ([facility]) Anion Gap 7 meq/L 8-16 Below low normal [facility] ( [facility]) Carbon Dioxide Level 26 meq/L 21-32 Normal (applies to non-num grady results) [facility] ([facility]) Calcium Level 9.1 mg/dL 8.8-10.2 Normal (applies to non-numeric re sults) [facility] ([facility]) ID Date Data Source [id number] 08/23/2019 10:37:00 AM EST [facility] ([facility]) Name Value Range Interpretation Code Description Data Aby rce(s) Supporting Document(s) Lipase [Enzymatic activity/volume] in Serum or Plasma 618 U/L 73-393 Above high normal [facility] ([facility]) ID Date Data Source [id number] 07/14/2019 08:19:00 AM EST [facility] ([facility]) Name Value Range Interpretation Code Description Data Aby rce(s) Supporting Document(s) Triglycerides Level 111 mg/dL Normal (applies to non-nume clarissa results) [facility] ([facility]) LDL Cholesterol 59 mg/dL Normal (applies to non-numeric results) [facility] ([facility]) HDL Cholesterol 53 mg/dL Normal (applies to non-numeric results) [facility] ([facility]) Cholesterol Level 134 mg/dL Normal (applies to non-numeri c results) [facility] ([facility]) Non-HDL-C 81 mg/dL Normal (applies to non-numeric resul ts) [facility] ([facility]) Cholesterol Risk Ratio 2.528 Normal (applies to non-n umeric results) [facility] ([facility]) ID Date Data Source [id number] 07/14/2019 08:19:00 AM EST [facility] ([facility]) Name Value Range Interpretation Code Description Data Aby rce(s) Supporting Document(s) Hemoglobin A1c 5.7 % Normal (applies to non-numeric r esults) [facility] ([facility]) REFERENCE RANGES: 4.5-5.6% NORMAL 5.7-6.4% SUGGESTS IMPAIRED GLUCOSE META BOLISM >= 6.5% ABNORMAL Estimated Average Glucose 117 mg/dL 60-110 Above high normal [facility] ([facility]) ID Date Data Source [id number] 07/14/2019 08:19:00 AM EST [facility] ([facility]) Name Value Range Interpretation Code Description Data Aby rce(s) Supporting Document(s) Free T4 0.96 ng/dL 0.76-1.46 Normal (applies to non-numeric resul ts) [facility] ([facility]) Thyroid Stimulating Hormone 2.500 uIU/ML 0.358-3.740 Norm al (applies to non- numeric results) [facility] ([facility]) ID Date Data Source [id number] 07/14/2019 08:19:00 AM EST [facility] ([facility]) Name Value Range Interpretation Code Description Data Aby rce(s) Supporting Document(s) Blood Urea Nitrogen 10 mg/dL 7-18 Normal (applies to non-nume clarissa results) [facility] ([facility]) Creatinine For GFR 0.65 mg/dL 0.55-1.30 Normal (applies to non -numeric results) [facility] ([facility]) Glucose, Fasting 100 mg/dL 70-100 Normal (applies to non-numeric results) [facility] ([facility]) Potassium Serum 3.6 meq/L 3.5-5.1 Normal (applies to non-numeric results) [facility] ([facility]) Sodium Level 146 meq/L 136-145 Above high normal [facility] ([facility]) Glomerular Filtration Rate > 60.0 Normal (applies to n on-numeric results) [facility] ([facility]) <content>Units are mL/min/1.73 m2</content>
<content></content>
<content>Chronic Kidney Disease Staging per NKF:</content>
<content></content>
<content>Stage I & II GFR >=60 Normal to Mildly Decreased</content>
<content>Stage III GFR 30-59 Moderately Decreased</content>
<content>Stage IV GFR 15-29 Severely Decreased</content>
<content>Stage V GFR <15 Very Little GFR Left</content>
<content>ESRD GFR <15 on [employer]ARM [employer]</content>
<content></content> Carbon Dioxide Level 27 meq/L 21-32 Normal (applies to non-num grady results) [facility] ([facility]) Anion Gap 5 meq/L 8-16 Below low normal [facility] ( [facility]) Chloride Level 114 meq/L 98-107 Above high normal [facility] ([facility]) Calcium Level 8.6 mg/dL 8.8-10.2 Below low normal [facility] T ([facility]) Procedure Social History Code Duration Value Status Description Data Source(s ) Alcohol intake 09/22/2019 12:00:00 AM EST Lifetime non-drinker (finding) completed Lifetime non-drinker (finding) [facility] Cigarette pack-years 09/22/2019 12:00:00 AM EST UNK [facility] Cigarettes smoked current (pack per day) - Reported 09/22/19 20 12:00:00 AM EST UNK completed [facility] Smoking 09/22/2019 12:00:00 AM EST Former smoker completed Former smoker [facility] Alcohol intake 09/10/2019 12:00:00 AM EST Lifetime non-drinker (finding) completed Lifetime non-drinker (finding) [facility] Smoking 09/10/2019 12:00:00 AM EST Former smoker completed Former smoker [facility] Alcohol intake 09/07/2019 12:00:00 AM EST Lifetime non-drinker (finding) completed Lifetime non-drinker (finding) [facility] Smoking 09/07/2019 12:00:00 AM EST Former smoker completed Former smoker [facility] Vital Signs ID Date Data Source UNK Name Value Range Interpretation Code Description Data Source(s) [place] body weight 125 [lb_av] 125 [lb_av] [facility] ([facility]) Oxygen saturation in Arterial blood by Pulse oximetry 99 % 99 % [facility] ([facility]) Body temperature 97.6 [degF] 97.6 [degF] [facility] ([facility]) Respiratory rate 18 /min 18 /min [facility] ( [facility]) Heart rate 76 /min 76 /min [facility] ([facility]) Body mass index (BMI) [Ratio] 22.9 kg/m2 22.9 k g/m2 [facility] ([facility]) Body weight 137.38 [lb_av] 137.38 [lb_av] [facility] ([facility]) Body height 65 [in_i] 65 [in_i] [facility] ([facility]) 5'5" Diastolic blood pressure 60 mm[Hg] 60 mm[Hg] [facility] ([facility]) Systolic blood pressure 124 mm[Hg] 124 mm[Hg] M [facility] ([facility]) [place] body weight 125 [lb_av] 125 [lb_av] [facility] ([facility]) Oxygen saturation in Arterial blood by Pulse oximetry 99 % 99 % [facility] ([facility]) Body temperature 97.9 [degF] 97.9 [degF] [facility] ([facility]) Respiratory rate 18 /min 18 /min [facility] ( [facility]) Heart rate 84 /min 84 /min [facility] ([facility]) Body mass index (BMI) [Ratio] 27.1 kg/m2 27.1 k g/m2 [facility] ([facility]) Body weight 163.00 [lb_av] 163.00 [lb_av] [facility] ([facility]) Body height 65 [in_i] 65 [in_i] [facility] ([facility]) 5'5" Diastolic blood pressure 70 mm[Hg] 70 mm[Hg] [facility] ([facility]) Systolic blood pressure 130 mm[Hg] 130 mm[Hg] M [facility] ([facility]) Oxygen saturation in Arterial blood by Pulse oximetry 99 % 99 % [facility] ([facility]) Body temperature 97.6 [degF] 97.6 [degF] [facility] ([facility]) Heart rate 50 /min 50 /min [facility] ([facility]) Body mass index (BMI) [Ratio] 28.3 kg/m2 28.3 k g/m2 [facility] ([facility]) Body weight 170.00 [lb_av] 170.00 [lb_av] [facility] ([facility]) Body height 65 [in_i] 65 [in_i] [facility] ([facility]) 5'5" Diastolic blood pressure 68 mm[Hg] 68 mm[Hg] [facility] ([facility]) Systolic blood pressure 118 mm[Hg] 118 mm[Hg] M [facility] ([facility]) Oxygen saturation in Arterial blood by Pulse oximetry 98 % 98 % [facility] ([facility]) Body temperature 97.8 [degF] 97.8 [degF] [facility] ([facility]) Heart rate 72 /min 72 /min [facility] ([facility]) Body mass index (BMI) [Ratio] 29.7 kg/m2 29.7 k g/m2 [facility] ([facility]) Body weight 178.38 [lb_av] 178.38 [lb_av] [facility] ([facility]) Body height 65 [in_i] 65 [in_i] [facility] ([facility]) 5'5" Diastolic blood pressure 68 mm[Hg] 68 mm[Hg] [facility] ([facility]) Systolic blood pressure 128 mm[Hg] 128 mm[Hg] M [facility] ([facility]) Oxygen saturation in Arterial blood by Pulse oximetry 99 % 99 % [facility] ([facility]) Body temperature 97.7 [degF] 97.7 [degF] [facility] ([facility]) Respiratory rate 18 /min 18 /min [facility] ( [facility]) Heart rate 72 /min 72 /min [facility] ([facility]) Body mass index (BMI) [Ratio] 30.5 kg/m2 30.5 k g/m2 [facility] ([facility]) Body weight 183.38 [lb_av] 183.38 [lb_av] [facility] ([facility]) Body height 65 [in_i] 65 [in_i] [facility] ([facility]) 5'5" Diastolic blood pressure 84 mm[Hg] 84 mm[Hg] [facility] ([facility]) Systolic blood pressure 162 mm[Hg] 162 mm[Hg] M [facility] ([facility]) Oxygen saturation in Arterial blood by Pulse oximetry 97 % 97 % [facility]) Body temperature 97.8 [degF] 97.8 [degF] [facility] ([facility]) Respiratory rate 18 /min 18 /min [facility] ( [facility]) Heart rate 70 /min 70 /min [facility] ([facility]) Body mass index (BMI) [Ratio] 31.5 kg/m2 31.5 k g/m2 [facility] ([facility]) Body weight 189.38 [lb_av] 189.38 [lb_av] [facility] ([facility]) Body height 65 [in_i] 65 [in_i] [facility] ([facility]) 5'5" Diastolic blood pressure 80 mm[Hg] 80 mm[Hg] [facility] ([facility]) Systolic blood pressure 180 mm[Hg] 180 mm[Hg] [facility] ID Date Data Source [id number] 11/25/2019 04:00:53 PM [facility] Name Value Range Interpretation Code Description Data Source(s) WEIGHT RECORDED 139 lb 139 lb [facility] Body height Measured [address] [facility] ID Date Data Source [id number] 09/29/2019 10:06:13 AM [facility] Name Value Range Interpretation Code Description Data Source(s) WEIGHT RECORDED 166 lb 166 lb [facility] Body height Measured [address] [facility] ID Date Data Source [id number] 10/04/2019 03:39:06 PM [facility] Name Value Range Interpretation Code Description Data Source(s) WEIGHT RECORDED 166 lb 166 lb [facility] Body height Measured [address] [facility] ID Date Data Source [id number] 10/01/2019 11:27:07 AM [facility] Name Value Range Interpretation Code Description Data Source(s) WEIGHT RECORDED 170.8 lb 170.8 lb [facility] Body height Measured [address] [facility] ID Date Data Source [id number] 09/18/2019 11:31:00 AM [facility] Name Value Range Interpretation Code Description Data Source(s) WEIGHT RECORDED 170.8 lb 170.8 lb [facility] Body height Measured [address] [facility] ID Date Data Source [id number] 09/14/2019 04:13:13 PM [facility] Name Value Range Interpretation Code Description Data Source(s) WEIGHT RECORDED 177 lb 177 lb [facility] Body height Measured [address] [facility] ID Date Data Source [id number] 09/17/2019 02:26:44 PM [facility] Value Range Interpretation Code Description Data Source(s) WEIGHT RECORDED 178 lb 178 lb [facility] Body height Measured [address] [facility] Patient Treatment Plan of Care Planned Activity Planned Date Details Description Data Source (s) Senna 8.6 MG 06/03/2020 01:00:00 AM EDT N [facility] ([facility]) Lovenox 40 MG/0.4ML 05/30/2020 01:00:00 AM EDT [facility]) MiraLax 17 GM 05/28/2020 01:00:00 AM EDT [facility]) oxyCODONE HCl 5 MG 05/28/2020 01:00:00 AM EDT [facility]) Ondansetron HCl 4 MG 05/28/2020 01:00:00 AM EDT [facility]) Omeprazole 40 MG 05/28/2020 01:00:00 AM EDT [facility]) Loperamide HCl 2 MG 05/28/2020 01:00:00 AM EDT [facility] ([facility]) Levothyroxine Sodium 75 MCG 05/28/2020 01:00:00 AM EDT [facility] ([facility]) Gabapentin 100 MG 05/28/2020 01:00:00 AM EDT [facility] ([facility]) Furosemide 20 MG 05/28/2020 01:00:00 AM EDT [facility] ([facility]) Docusate Sodium 100 MG 05/28/2020 01:00:00 AM EDT [facility] ([facility]) Diclofenac Sodium 1 % 05/28/2020 01:00:00 AM EDT [facility] ([facility]) Aspirin 325 MG 05/28/2020 01:00:00 AM [facility] Acetaminophen 500 MG 05/28/2020 01:00:00 AM EDT [facility] ([facility]) Pancrelipase (Pam-Fzqo-Jexw) [address] UNIT 05/28/2020 01:00:00 AM [facility]T [facility]) Lidocaine-Prilocaine 2.5-2.5 % 05/28/2020 01:00:00 AM [facility]T [facility]) Sucralfate 1 GM 05/28/2020 01:00:00 AM [facility]) Spironolactone 25 MG 05/28/2020 01:00:00 AM EDT [facility] ([facility]) Simethicone 180 MG 05/28/2020 01:00:00 AM [facility]) Senna 8.6 MG 05/28/2020 01:00:00 AM EDT N [facility] ([facility]) Prochlorperazine Maleate 10 MG 05/28/2020 01:00:00 AM EDT [facility] ([facility]) sodium chloride (preservative free) 0.9 % flush 3 mL 020 05:00:00 PM [facility] Amylases [id number] UNT / Endopeptidases 114 000 UNT / Lipase 46771 UNT Delayed Release Oral Capsule 09/17/2019 12:00:00 AM [facility] sodium chloride (preservative free) 0.9 % flush 3 mL 05:00:00 PM [facility] sodium chloride (preservative free) 0.9 % flush 10 mL 09/10/2019 02:10:43 PM [facility] 1 ML heparin sodium, porcine 10 UNT/ML Injection 09/10/2019 02:10:4 3 PM [facility] sodium chloride (preservative free) 0.9 % flush 10 mL 09/10/2019 02:10:43 PM [facility] 1 ML heparin sodium, porcine 100 UNT/ML Injection 09/10/2019 02: 10:43 PM [facility] Amylases 86402 UNT / Endopeptidases 1900 0 UNT / Lipase 6000 UNT Delayed Release Oral Capsule 09/07/2019 12:00:00 AM [facility] Acetaminophen 325 MG / Hydrocodone Bitartrate 10 MG Or al Tablet 08/31/2019 12:00:00 AM [facility] Acetaminophen 325 MG / Hydrocodone Bitartrate 7.5 MG O ral Tablet 08/26/2019 12:00:00 AM [facility] Ondansetron 4 MG Disintegrating Oral Tablet 08/23/2019 12:00:00 AM [facility] Levothyroxine Sodium 0.075 MG Oral Tablet 08/18/2019 12:00:00 AM [facility] Lisinopril 30 MG Oral Tablet 08/11/2019 12:00:00 AM [facility] Amlodipine 10 MG Oral Tablet 08/11/2019 12:00:00 AM [facility] Lisinopril 20 MG Oral Tablet 07/18/2019 12:00:00 AM [facility] Oseltamivir 75 MG Oral Capsule 09/18/2018 12:00:00 AM [facility]
--- NOTE | 2020-09-09 23:19 | REPVR ---
PROCEDURE INFORMATION: Exam: CT Abdomen And Pelvis With Contrast Exam date and time: 09/09/2020 10:46 PM Age: 70 years old Clinical indication: Fever; Additional info: Diarrhea, fever, h/o pancreatic cancer TECHNIQUE: Imaging protocol: Computed tomography of the abdomen and pelvis with contrast. Radiation optimization: All CT scans at this facility use at least one of these dose optimization techniques: automated exposure control; mA and/or kV adjustment per patient size (includes targeted exams where dose is matched to clinical indication); or iterative reconstruction. Contrast material: ISOVUE 370; Contrast volume: 100 ml; Contrast route: INTRAVENOUS (IV); COMPARISON: CT ABD PELVIS W/O FOL BY WIT 08/29/2020 1:19 PM FINDINGS: Lungs: Within the right middle lobe of the lung, there is a stable 4-5 mm nodule. Liver: There is hypodense fatty infiltration of the liver. Within the left hepatic lobe anteriorly, there is a 1.2 x 0.7 cm hypodense lesion, without significant progression. A metastatic lesion cannot be excluded. Gallbladder and bile ducts: The gallbladder is absent. Pancreas: Postoperative changes are again visualized, with resection of the head of the pancreas. There is volume loss/atrophy of the remaining pancreas, stable compared to the previous exam. Spleen: Unremarkable. No splenomegaly. Adrenal glands: No mass. Kidneys and ureters: Unremarkable as visualized. No hydronephrosis. Stomach and bowel: Areas of small bowel wall thickening are visualized, suggestive of enteritis. The rectum is distended with an air-fluid level. Air-fluid levels are also identified within the colon. The colon measures up to 4.5 cm in diameter. Appendix: The appendix is nondistended. Fluid/ascites is seen adjacent to the appendix. Intraperitoneal space: There is a large amount of abdominal and pelvic ascites again visualized. There is stranding of the abdominal and pelvic peritoneum. Vasculature: Filling defects are identified within pulmonary arterial branches to the left lower lobe, consistent with pulmonary embolism. This has progressed compared to the prior study. There is a focal area of hypodensity within the left common femoral vein, and thrombus cannot be excluded. This can be contributed by the timing injection. Lymph nodes: No enlarged lymph nodes. Urinary bladder: The bladder is incompletely filled, which limits the evaluation. Reproductive: The uterus is absent. Bones/joints: Hypertrophic degenerative changes are noted involving the spine. Soft tissues: Unremarkable. IMPRESSION: 1. Filling defects are identified within pulmonary arterial branches to the left lower lobe, consistent with pulmonary embolism. 2. There is a focal area of hypodensity within the left common femoral vein, and thrombus cannot be excluded. Correlation with venous duplex ultrasound recommended, as clinically indicated. 3. There is a large amount of abdominal and pelvic ascites again visualized. 4. Within the right middle lobe of the lung, there is a stable 4-5 mm nodule. 5. There is hypodense fatty infiltration of the liver. Within the left hepatic lobe anteriorly, there is a 1.2 x 0.7 cm hypodense lesion, without significant progression. A metastatic lesion cannot be excluded. A nonemergent MRI of the abdomen with/without contrast is recommended. 6. Postoperative changes are again visualized, with resection of the head of the pancreas. 7. Areas of small bowel wall thickening are visualized, suggestive of enteritis. 8. The rectum is distended with an air-fluid level. Air-fluid levels are also identified within the colon. 9. There is stranding of the abdominal and pelvic peritoneum. 10. Additional findings described above. Electronically signed by: Jeremi Duong On 09/09/2020 23:18:46 PM
[2020-09-10] VITALS (7 sets, daily range): BP systolic 101–111; BP diastolic 49–55; O2SAT 95
[2020-09-10] MEDS ORDERED: HEPARIN DRIP 25,000 UNITS in IV 1 EA IV SCH (00:23)
[2020-09-10] MEDS ORDERED: HEPARIN SOD (PORCINE) 5000UNITS/ML 1ML VIAL/SYRINGE IV PRN (00:30)
[2020-09-10] MEDS ORDERED: HEPARIN SOD (PORCINE) 5000UNITS/ML 1ML VIAL/SYRINGE IV ONE (00:30)
--- OUTSIDE RECORDS SUMMARY | 2020-09-10 00:30 | CCD ---
Author Author [facility] Organization [facility] Address Unknown Phone Unavailable Care Team Providers Care Chair Frame Builder Name Role Phone Fran GOMEZ Unavailable Unavailable [...] Unavailable Onesimo Chaudhari MD Unavailable Unavailable Onesimo Chaudahri MD Unavailable Unavailable Onesimo Chaudhari MD Unavailable [...] is protected by Article 27-F of the [facility] Public Health law. If you continue you may have access to information: Regarding HIV / AIDS; Provided by facilities licensed or operated by the [facility] Office of Mental Health; or Provided by the [facility] Office for People With Developmental Disabilities. If such information is present, then the following [facility] mandated warning applies: This information has [...] law may result in a fine or alf sentence or both. A general authorization for the release of medical or other information is NOT sufficient authorization for further disc losure. Allergies and Adverse Reactions Type Description Substance Reaction Status Data Source(s ) NKA NKA NKA active NETSMAR ([facility]) Drug Class NO KNOWN ALLERGIES NO KNOWN ALLERGIES [facility] Family History Family Member Name Family Member Gender Family Member Status Date o f Status Description Data Source(s) Unknown Unknown Problem [facility] ([facility]) Unknown Unknown Problem [facility] ([facility]) Unknown Unknown Problem [facility] ([facility]) Unknown Unknown Problem MED[facility] ([facility]) Encounters Encounter Providers Location Date Indications Data Source(s ) Outpatient Attender: Taiwo ALICEA [facility] 07/11/2020 02:00:00 PM EST [facility] ([facility]) 05/28/2020 01:00:00 AM EDT - 020 10:07:09 AM EDT NETSMART ([facility]) Outpatient Attender: Durga Chaudhari MD 01/18/2020 12:00 :00 AM [facility] Outpatient Referrer: KUSHAL HUBBARD [facility] NICOL COCHRAN [id number] 0 [facility]: KUSHAL HUBBARD [id number] [facility] 11:54:00 AM EDT [facility] Outpatient 10/15/2019 03:16:00 PM EST [facility] Outpatient Attender: Iva Melchor [id number] 09/25/2019 12:39:17 [facility] Outpatient Attender: Taiwo ALICEA [facility] 09/23/2019 10:30:00 [facility] Outpatient Attender: ISAC WHITTINGTON MDA dmitter: BOOGIE PEREZ FIGUEIRAReferrer: KUSHAL HUBBARD [id number] 09/22/2019 08:00:04 AM EST - 09/22/2019 02:15:00 PM EST Malignant neoplasm of pancreas, unspecified [facility] Malignant neoplasm of pancreas, unspecif ied Patient discharged. Outpatient Attender: Oliver DOEeferrer: Jame villalobos MD [id number] 09/22/2019 12:00:00 AM EST - 09/22/2019 09:55:48 AM EST Malignant neoplasm of pancreas, unspecified [facility] Malignant neoplasm of pancreas, unspecif ied Outpatient Attender: ISAC WHITTINGTON MDReferrer: KUSHAL CHAMBERS 09/22/2019 12:00:00 AM EST Malignant neoplasm of pancreas, unspecified [facility] Malignant neoplasm of pancreas, unspecif ied Outpatient Attender: Iva MelchorAdmitter: Iva Melchor 0 [id number] 09/17/2019 12:00:00 AM EST - 09/17/2019 03:35:51 PM EST Encounter for nonprocreative genetic counseling [facility] Encounter for nonprocreative genetic cou nseling Outpatient Attender: Durga Chaudhari MDReferrer: OXANA URIOSTEGUI MD [id number] 09/17/2019 12:00:00 AM EST - 09/17/2019 02:16:27 PM ES T Malignant neoplasm of pancreas, unspecified [facility] Malignant neoplasm of pancreas, unspecif ied Outpatient 09/16/2019 10:14:00 AM EST [facility] 09/11/2019 02:14:00 PM EST [facility] 09/11/2019 02:14:00 PM EST [facility] Outpatient Attender: OXANA URIOSTEGUI MDAdmitter: OXANA Ribera MD [id number] 09/10/2019 12:00:00 AM EST - 09/10/2019 12:00:00 AM EST Pancreatic mass [facility] Pancreatic mass Patient discharged. Outpatient Attender: DEFAULT / GENE CLARISSA / UNKNOWN PROVIDER ALIASES Attender: Durga Chaudhari MDReferrer: Taiwo ALICEA [id number] 09/07/2019 12:00:00 AM EST - 09/07/2019 12:37:50 PM EST Other specified diseases of pancreas [facility] Other specified diseases of pancreas Outpatient Attender: Yvonne Jones MDReferrer: OXANA URIOSTEGUI MD 09/07/2019 12:00:00 AM EST [facility] pretest Outpatient 09/03/2019 03:39:00 PM EST [facility] Outpatient Attender: Taiwo ALICEA [facility] 08/25/2019 03:00:00 PM EST [facility] ([facility]) Outpatient Attender: Taiwo ALICEA [facility] 08/11/2019 02:30:00 PM EST [facility] ([facility]) Outpatient Attender: Taiwo ALICEA [facility] 07/14/2019 02:40:00 PM EST [facility] ([facility]) Medications Medication Brand Name Start Date Product [...] DAILY DOSE = 2 TABLETS SOLD: 08/12/2020 [facility] 10-325 mg 08/11/2020 12:00:00 AM EST tablet [...] BY MOUTH TWICE A DAY SOLD: 08/12/2020 [facility] 0.5 mg 07/12/2020 12:00:00 AM EST tablet 60 TAKE ONE TABLET BY MOUTH TWICE A DAY NEEDED FOR NAUSEA MAXIMUM DAILY DOSE = 2 TABLETS TAKE ONE TABLET BY MOUTH TWICE A DAY NEEDED FOR NAUSEA MAXIMUM DAILY DOSE = 2 TABLETS SOLD: 07/13/2020 [facility] 88 mcg 07/12/2020 12:00:00 AM EST tablet 90 TAKE ONE TABLET BY MOUTH EVERY DAY IN THE MORNING TAKE ONE TABLET BY MOUTH EVERY DAY IN THE MORNING SOLD : 07/13/2020 [facility] Promethazine Hydrochloride 12.5 MG Oral Tablet Promethazine HCL 07/11/2020 12:00:00 AM EST ORAL completed [facility] ([facility]) 10-325 mg 07/11/2020 12:00:00 AM EST tablet 120 TAKE 1 TABLET BY MOUTH EVERY 6 HOURS NEEDED FOR PAIN MAXIMUM DAILY DOSE = 4 TABLETS TAKE 1 TABLET BY MOUTH EVERY 6 HOURS NEEDED FOR PAIN MAXIMUM DAILY DOSE = 4 TABLETS SOLD: 07/13/2020 [facility] Levothyroxine Sodium 0.088 MG Oral Tablet Levothyroxine Sodi um 07/11/2020 12:00:00 AM EST ORAL active M [facility] ([facility]) 0.5 mg 07/01/2020 12:00:00 AM EST tablet 10 TAKE ONE TABLET BY MOUTH EVERY 6 HOURS NEEDED FOR ANXIETY, MAXIMUM DAILY DOSE = 4 TABLETS TAKE ONE TABLET BY MOUTH EVERY 6 HOURS NEEDED FOR ANXIETY, MAXIMUM DAILY DOSE = 4 TABLETS SOLD: 07/08/2020 [facility] 0.5 mg 06/07/2020 12:00:00 AM EDT tablet 20 TAKE ONE TABLET BY MOUTH EVERY 6 HOURS NEEDED FOR ANXIETY, MAXIMUM DAILY DOSE = 4 TABLETS TAKE ONE TABLET BY MOUTH EVERY 6 HOURS NEEDED FOR ANXIETY, MAXIMUM DAILY DOSE = 4 TABLETS SOLD: 06/07/2020 [facility] Senna 8.6 MG Senna 06/03/2020 01:00:00 AM EDT comp leted NETSMART ([facility]) Lovenox 40 MG/0.4ML Lovenox 05/30/2020 01:00:00 AM EDT completed [facility] ([facility] ) oxyCODONE HCl 5 MG oxyCODONE HCl 05/28/2020 01:00:00 AM EDT completed [facility] ([facility]) MiraLax 17 GM MiraLax 05/28/2020 01:00:00 AM EDT c ompleted [facility] ([facility]) Omeprazole 40 MG Omeprazole 05/28/2020 01:00:00 AM EDT completed [facility] ([facility] ) Ondansetron HCl 4 MG Ondansetron HCl 05/28/2020 01:00:00 AM EDT completed [facility] ([facility]) Loperamide HCl 2 MG Loperamide HCl 05/28/2020 01:00:00 AM EDT completed [facility] ([facility]) Levothyroxine Sodium 75 MCG Levothyroxine Sodium 05/28/2020 01:00:00 AM EDT completed [facility] ( [facility]) Gabapentin 100 MG Gabapentin 05/28/2020 01:00:00 AM EDT completed [facility] ([facility] ) Furosemide 20 MG Furosemide 05/28/2020 01:00:00 AM EDT completed [facility] ([facility] ) Docusate Sodium 100 MG Docusate Sodium 05/28/2020 01:00:00 AM EDT completed [facility] ([facility]) Diclofenac Sodium 1 % Diclofenac Sodium 05/28/2020 01:00:00 AM EDT completed [facility] ([facility]) Aspirin 325 MG Aspirin 05/28/2020 01:00:00 AM EDT completed [facility] ([facility]) Acetaminophen 500 MG Acetaminophen 05/28/2020 01:00:00 AM EDT 2.0 {tablet} completed [facility] ([facility]) Pancrelipase (Seu-Gwds-Fsdj) 57884 UNIT Pancrelipase (Lip-Pr ot-Amyl) 05/28/2020 01:00:00 AM EDT completed [facility] ([facility]) Sucralfate 1 GM Sucralfate 05/28/2020 01:00:00 AM EDT completed [facility] ([facility]) Lidocaine-Prilocaine 2.5-2.5 % Lidocaine-Prilocaine 05/28/2020 0 1:00:00 AM EDT completed NETSMA RT ([facility]) Prochlorperazine Maleate 10 MG Prochlorperazine Maleate 05/12 01:00:00 AM EDT completed NETSMAR T ([facility]) Simethicone 180 MG Simethicone 05/28/2020 01:00:00 AM EDT completed [facility] ([facility]) Senna 8.6 MG Senna 05/28/2020 01:00:00 AM EDT 2.0 {tablet} completed [facility] ([facility]) Spironolactone 25 MG Spironolactone 05/28/2020 01:00:00 AM EDT completed [facility]SM[facility] ([facility]) 10-325 mg 05/03/2020 12:00:00 AM EDT tablet [...] 12/04/2019 12:00:00 AM EDT ORAL active [facility] ([facility]) 20 mEq 12/04/2019 12:00:00 AM EDT tablet,ER [...] 12/03/2019 12:00:00 AM EDT ORAL active MED[facility] ([facility]) 10-325 mg 11/30/2019 12:00:00 AM [...] MOUTH TWO TIMES A DAY SOLD: 10/18/2019 [facility] 40 mg 10/18/2019 12:00:00 AM EST [...] 2:00:00 AM EST ORAL active MEDENT ( [facility]) sodium chloride (preservative free) 0.9 % flush [...] For 30 days, Pre-op [Order 6 End] [facility] Medication administered onsite lidocaine (XYLOCAINE) 2 % injection 7316-7222-35 09/22/2019 12:35:00 PM EST completed Code/Trauma Medicati on, Starting Sat09/22/19 at [facility] Medication administered onsite fentaNYL (SUBLIMAZE) (PF) injection 5335-7322-79 09/22/2019 12:34:57 PM EST completed Code/Trauma Medicati on, Starting Sat09/22/19 at [facility] Medication administered onsite 2 ML Midazolam 1 MG/ML Injection midazolam (PF) (VERSE D) injection midazolam (PF) (VERSED) injection 09/22/2019 12:34:00 PM EST completed Code/Trauma Medication, Starting Sat09/22/19 at [facility] Medication administered onsite Cefazolin 1000 MG Injection ceFAZolin (ANCEF) IVPB 1 g in dextrose 5 % (premix) ceFAZolin (ANCEF) IVPB 1 g in dextrose 5 % (premix) 09/22/2019 10:15:00 AM EST 1 g Intravenous completed 1 g, Intra venous, Administer over 30 Minutes, Once, Sat09/22/19 at 1015, For 1 dose, Pre-op [facility] Medication administered onsite iohexol (OMNIPAQUE) 300 MG/ML contrast injection 50 mL 31245 2 09/22/2019 08:30:00 AM EST 50 mL Given by IV completed 50 mL, Given by IV, 1 TIME IMAGING, Sat09/22/19 at 0830, For 1 dose [facility] Medication administered onsite 36,000-114,000- 180,000 unit 09/18/2019 12:00:00 AM EST capsule,delayed release(DR/EC) 400 TAKE 2 CAPSULES 3 TI MES A DAY WITH MEALS AND 1 WITH SNACKS - WITH FIRST BITE OF FOOD TAKE 2 CAPSULES 3 TIMES A DAY WITH MEALS AND 1 WITH SNACKS - WITH FIRST BITE OF FOOD SOLD: 09/19/2019 [facility] 36,000-114,000- 180,000 unit 09/18/2019 12:00:00 AM EST capsule,delayed release(DR/EC) 400 TAKE 2 CAPSULES 3 TI MES A DAY WITH MEALS AND 1 WITH SNACKS - WITH FIRST BITE OF FOOD TAKE 2 CAPSULES 3 TIMES A DAY WITH MEALS AND 1 WITH SNACKS - WITH FIRST BITE OF FOOD SOLD: 06/07/2020 [facility] Amylases 498178 UNT / Endopeptidases 114 000 UNT / Lipase 19191 UNT Delayed Release Oral Capsule Pancrelipase (Wko-Jlfk-Qoey) 05029 UNIT Oral Capsule Delayed Release Particles (CREON) Pancrelipase (Xgx-Qstr-Ionn) 62681 UNIT Oral Capsule Delayed Release Particles (CREON) 09/17/2019 12:00:00 AM EST Oral active Adenocarcinoma of pancreas Take 2 capsules by mouth Three times daily with meals. May also take 1 capsule with snacks. Take with first bite of food. [facility] Adenocarcinoma of pancreas 4 mg 09/11/2019 12:00:00 AM EST tablet,disintegrating 3 0 DISSOLVE ONE TABLET UNDER TONGUE EVERY 4 HOURS FOR NAUSEA DISSOLVE ONE TABLET UNDER TONGUE EVERY 4 HOURS FOR NAUSEA SOLD: 09/11/2019 [facility] sodium chloride (preservative free) 0.9 % [...] For 30 days, Pre-op [Order 6 End] [facility] Medication administered onsite sodium chloride (preservative free) 0.9 % flush 10 mL 64221- 186-00 09/10/2019 02:10:43 PM EST 10 mL Intravenous active 10 mL, Intravenous, Continuous PRN, Line Care, Starting Cici 09/10/19 at 1410, For 30 days, Pre- op
Verify blood return before use.For deaccessing: flush with 10 mL Sodium Chloride 0.9 % followed by 5 mL Heparin 100 units/mL.Flush per CM C- 34C Central Line Policy for Infusaport.
[facility] Medication administered onsite 1 ML heparin sodium, [...] CM C-34C Central Line Policy for Infusaport.
[facility] Medication administered onsite sodium chloride (preservative free) 0.9 % flush 10 mL 68705- 186-00 09/10/2019 02:10:43 PM EST 10 mL Intravenous active 10 mL, Intravenous, Continuous PRN, Line Care, Starting [facility] 09/10/19 at 1410, For 30 days, Pre- op
Verify blood return before use.For intermittent access: flush with 10 mL Sodium Chloride 0.9 % followed by 5 mL Heparin 10 units/mL.Flush per CM C-34C Central Line Policy for Infusaport.
[facility] Medication administered onsite 1 ML heparin sodium, [...] CM C-34C Central Line Policy for Infusaport.
[facility] Medication administered onsite 6,000-19,000 -30,000 unit 09/08/2019 12:00:00 AM EST capsule,delayed release(DR/EC) 180 TAKE TWO CAPSULES BY MOUTH THREE TIMES A DAY WITH FOOD TAKE TWO CAPSULES BY MOUTH THREE TIMES A DAY WITH FOOD SOLD: 09/08/2019 [facility] Amylases 14970 UNT / Endopeptidases 1900 0 UNT / Lipase 6000 UNT Delayed Release Oral Capsule Pancrelipase (Vuv-Bgpg-Dite) 6000 UNIT Oral Capsule Delayed Release Particles (CREON) Pancrelipase (Hkv-Pnvh-Wtfq) 6000 UNIT O ral Capsule Delayed Release Particles (CREON) 09/07/2019 12:00:00 AM EST Oral active Take 2 capsules by mouth Three times daily with meals [facility] Ultrasound Guided Biopsy Of Pancreatic Head Mass. 09/01/2019 12:00:00 AM EST completed [facility] ([facility]) 10-325 mg 08/31/2019 12:00:00 AM EST tablet 120 TAKE ONE TABLET BY MOUTH EVERY 6 HOURS NEEDED FOR PAIN, MAXIMUM DAILY DOSE = 4 TAKE ONE TABLET BY MOUTH EVERY 6 HOURS NEEDED FOR PAIN, MAXIMUM DAILY DOSE = 4 SOLD: 08/31/2019 [facility] Acetaminophen 325 MG / Hydrocodone Bitartrate 10 MG Or al Tablet Hydrocodone-Acetaminophen 08/31/2019 12:00:00 AM EST ORAL active [facility] ([facility]) Acetaminophen 325 MG / Hydrocodone [place] trate 10 MG Oral Tablet HYDROcodone- Acetaminophen 10-325 MG Oral Tablet (VICODIN) HYDROcodone-Acetaminophen 10-325 MG Oral Tablet (VICODIN) 08/31/2019 12:00:00 AM EST active every 6 (six) hours as needed [facility] Acetaminophen 325 MG / Hydrocodone Bitartrate 7.5 MG O ral Tablet Hydrocodone-Acetaminophen 08/26/2019 12:00:00 AM EST ORAL completed [facility] ([facility]) Acetaminophen 325 MG / Hydrocodone [place] trate 7.5 MG Oral Tablet HYDROcodone- Acetaminophen 7.5-325 MG Oral Tablet (NORCO) HYDROcodone-Acetaminophen 7.5-325 MG Oral Tablet (NORCO) 08/26/2019 12:00:00 AM EST 1 {tbl} Oral aborted Take 1 tablet by mouth every 6 (six) hours as needed for Pain [facility] 7.5-325 mg 08/26/2019 12:00:00 AM EST tablet 28 TAKE ONE TABLET BY MOUTH EVERY 6 HOURS NEEDED FOR PAIN, MAXIMUM DAILY DOSE = 4 TABLETS TAKE ONE TABLET BY MOUTH EVERY 6 HOURS NEEDED FOR PAIN, MAXIMUM DAILY DOSE = 4 TABLETS SOLD: 08/26/2019 [facility] [employer] [facility] Ondansetron 4 MG Disintegrating Oral Tablet Ondansetron 08/25/2019 12:00:00 AM EST SUBLINGUAL active [facility] ([facility]) Acetaminophen 300 MG / Hydrocodone Bitartrate 7.5 MG O ral Tablet Hydrocodone Bitartrate/Acetaminophen 08/25/2019 12:00:00 AM EST ORAL completed [facility] ([facility]) Ondansetron 4 MG Disintegrating Oral Tab let Ondansetron 4 MG Oral Tablet Disintegrating (ZOFRAN-ODT) Ondansetron 4 MG Oral Tablet Disintegrat ing (ZOFRAN-ODT) 08/23/2019 12:00:00 AM EST 1 {tbl} Oral acti ve Take 1 tablet by mouth every 4 (four) hours as needed for Nausea [facility] 4 mg 08/23/2019 12:00:00 AM EST tablet,disintegrating [...] Take 1 tablet by mouth every morning [facility] 75 mcg 08/18/2019 12:00:00 AM EST tablet [...] active Take 1 tablet by mouth n [facility] Amlodipine 10 MG Oral Tablet amLODIPine Besylate 10 MG Oral Tablet (NORVASC) amLODIPine Besylate 10 MG Oral Tablet (NORVASC) 08/11/2019 12:00:00 AM EST 1 {tbl} Oral active Take 1 tablet by mouth e [facility] Amlodipine 10 MG Oral Tablet Amlodipine Besylate 08/11/2019 12:00:00 AM EST ORAL completed [facility] ([facility]) Lisinopril 30 MG Oral Tablet Lisinopril 08/11/2019 12:00:00 AM EST ORAL active MED[facility] ([facility]) Lisinopril 20 MG Oral Tablet Lisinopril 20 MG Oral Tab let (PRINIVIL,ZESTRIL) Lisinopril 20 MG Oral Tablet (PRINIVIL,ZESTRIL) 07/18/2019 12:00:00 AM EST 1 {tbl} Oral aborted Take 1 tablet by mouth n [facility] 5 mg 07/15/2019 12:00:00 AM EST tablet 90 TAKE ONE TABLET BY MOUTH EVERY DAY TAKE ONE TABLET BY MOUTH EVERY DAY SOLD: 07/15/2019 [facility] Blood Pressure Monitor Digital/Auto-Inflation 2018 12:00:00 AM EST active [facility] ([facility]) Amlodipine 5 MG Oral Tablet Amlodipine Besylate 07/14/2019 12:00:00 A M EST ORAL completed [facility] ([facility]) 20 mg 06/23/2019 12:00:00 AM EST tablet [...] Capsule (TAMIFLU) 02/2019 12:00:00 AM EST aborted [facility] Insurance Providers Payer name Policy type / Coverage type Policy ID Covered green party ID Covered green party's relationship to farr Policy Farr Plan Information UMR [facility] [id number] SP [id number] MEDICARE [id number] SP [id number] UMR O [id number] S [id number] MEDICARE C [id number] S [id number] UMR U [id number] Self [id number] MEDICARE A [id number] Self [id number] [id number] [place] GBA C [id number] S [id number] UMR [facility] [id number] SP [id number] Umr/Uhc/[employer] Medigap Part B [id number] Self [id number] Medicare [place] Gov't Servi Medicare Primary [id number] Self [id number] [place] Primary [id number] Self [id number] [place] Medigap Part B [id number] Self [id number] Umr Medigap Part B [id number] Self [id number] [place] Primary [id number] Self [id number] [employer] Medigap Part B [id number] Self [id number] Umr/[employer] Medigap Part B [id number] Self Y [id number] Medicare [place] Gov't Servi Medicare Primary [id number] Self [id number] [place] Primary [id number] Self [id number] [place] Medigap Part B [id number] Self [id number] Umr Medigap Part B [id number] Self [id number] [place] Primary [id number] Self [id number] POMCO [id number] SP [id number] MEDICARE [id number] SP [id number] Umr Medigap Part B [id number] Self [id number] [employer] Medigap Part B [id number] Self [id number] Medicare [place] Primary [id number] Self [id number] Umr Medigap Part B [id number] Self [id number] [employer] Medigap Part B [id number] Self [id number] Medicare [place] Primary [id number] Self [id number] [employer] Medigap Part B [id number] Self [id number] Medicare [place] Primary [id number] Self [id number] [employer] Medigap Part B [id number] Self [id number] Medicare [place] Medicare Primary [id number] Self [id number] [employer] PPO O [id number] S [id number] MEDICARE C [id number] S [id number] [employer] Medigap Part B [id number] Self [id number] Medicare [place] Gov't Servi Medicare Primary [id number] Self [id number] [employer] Medigap Part B [id number] Self [id number] Medicare [place] Primary [id number] Self [id number] [employer] Medigap Part B [id number] Self [id number] Medicare [place] Primary [id number] Self [id number] [employer] Medigap Part B [id number] Self [id number] Medicare [place] Gov't Servi Medicare Primary [id number] Self [id number] [employer] [id number] SP [id number] [employer] Medigap Part B Self Medicare [place] Primary Self [place] Medigap Part B Self Medicare [place] Gov't Servi Medicare Primary Self SELF PAY UNAVAILABLE SP UNAVAILA BLE Problems, Conditions, and Diagnoses Code Display Name Description Problem Type Effective Dates Data Source(s) 775651217 Gastroesophageal reflux disease Gastroesophageal reflux disease Problem 07/11/2020 12:00:00 AM EST [facility] ([facility]) [id number] Generalized anxiety disorder Generalized anxiety disor miguel Problem 07/11/2020 12:00:00 AM EST [facility] ([facility]) C25.9 Malignant neoplasm of pancreas, unspecif ied Malignant neoplasm of pancreas, unspecified Problem 05/16/2020 01:00:00 AM EDT NETSMART ([facility]) I10 Essential (primary) hypertension Essential (primary) h ypertension Problem 05/16/2020 01:00:00 AM EDT NETSMAR ([facility] ) Z91.81 History of falling History of falling Problem 0 01:00:00 AM EDT CYMCCLUSKY ([facility]) 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 tank terminal gauger (cu rrent) use of aspirin Problem 05/16/2020 01:00:00 AM EDT CYMCCLUSKY ([facility]) Z79.891 residential (current) use of opiate analge sic residential (current) use of opiate analgesic Problem 05/16/2020 01:00:00 AM EDT CYMCCLUSKY ([facility]) Z79.01 tank terminal gauger (current) use of anticoagulant s residential (current) use of anticoagulants Problem 05/16/2020 01:00:00 AM EDT CYMCCLUSKY ([facility]) Z48.3 Aftercare following surgery for neoplasm Aftercare following surgery for neoplasm Problem 05/16/2020 01:00:00 AM [facility] ([facility]) C25.9 Malignant neoplasm of pancreas, unspecif ied Malignant neoplasm of pancreas, unspecified Diagnosis 09/22/2019 10:06:31 AM [facility] Z13.79 Encounter for other screening for geneti c and chromosomal anomalies Encounter for other screening for genetic and chromosomal anomalies Diagnosis 09/17/2019 12:19:25 PM [facility] Z71.83 Encounter for nonprocreative genetic cou nseling Encounter for nonprocreative genetic counseling Diagnosis 09/17/2019 12:19:25 PM [facility] Pancreatic mass Pancreatic mass Diagnosis 09/10/2019 01:4 9:49 PM [facility] pretest pretest Diagnosis 09/07/2019 01:22:40 PM [facility] K86.89 Other specified diseases of pancreas Oth er specified diseases of pancreas Diagnosis 09/07/2019 11:32:13 AM [facility] C25.0 Malignant neoplasm of head of pancreas M alignant neoplasm of head of pancreas Diagnosis 09/07/2019 10:03:10 AM [facility] Surgeries/Procedures Procedure Description Date Indications Data Source(s) PARTIAL THROMBOPLASTIN TIME (PTT) PARTIAL THROMBOPLASTIN TIME ( PTT) STAT 09/22/2019 10:17 AM EST 09/22/2019 03:17:00 PM [facility] PROTHROMBIN TIME PROTIME INR STAT 09/22/2019 10:17 AM EST 09/22/2019 03:17:00 PM [facility] BLOOD COUNT COMPLETE AUTO&AUTO DIFRNTL WBC COUNT CBC AND DIFFER ENTIAL STAT 09/22/2019 10:17 AM EST 09/22/2019 03:17:00 PM [facility] CT THORAX W/CONTRAST MATERIAL CT THORAX WITH CONTRAST [id number] STA T 09/22/2019 8:41 AM EST Adenocarcinoma of pancreas 09/22/2019 01:41:17 PM EST [place] arcinoma of pancreas [facility] Adenocarcinoma of pancreas UPPER EUS (ENDOSCOPIC ULTRASOUND) UPPER EUS (ENDOSCOPIC ULTRASO UND) 09/10/2019 12:00 AM EST 09/10/2019 05:00:00 AM [facility] Results ID Date Data Source [id number] 08/31/2020 07:37:00 AM EST [facility] ([facility]) Name Value Range Interpretation Code Description Data Aby rce(s) Supporting Document(s) Cancer Ag 19-9 [Presence] in Serum or Plasma 226.4 U/ML Ab ove high normal [facility] ([facility]) THE CA 19-9 ASSAY IS PERFORMED ON THE [employer] BY CHEMILUMINESCENCE AND SHOULD NOT BE COMPARED INTERCHANGEABLY WITH OTHER METHODS. IT SHOULD NOT BE USED ALONE A SCREENING TEST OR DIAGNOSIS FOR THE PRESENCE OR ABSENCE OF MALIGNANT DISEASE. PREDICTIONS OF DISEASE RECURRENCE SHOULD NOT BE BASED SOLELY ON VALUES OBTAINED FROM SERIAL PATIENT SERUM VALUES. Carcinoembryonic Ag [Mass/volume] in Serum or Plasma 5.0 ng/mL Above high normal [facility] ([facility]) THE CEA ASSAY IS PERFORMED ON THE [employer] BY CHEMILUMINESCENCE AND SHOULD NOT BE COMPARED INTERCHANGEABLY WITH OTHER METHODS. IT SHOULD NOT BE USED ALONE A SCREENING TEST OR DIAGNOSIS FOR THE PRESENCE OR ABSENCE OF MALIGNANT DISEASE. PREDICTIONS OF DISEASE RECURRENCE SHOULD NOT BE BASED SOLELY ON VALUES OBTAINED FROM SERIAL PATIENT SERUM VALUES. ID Date Data Source [id number] 08/31/2020 07:37:00 AM EST [facility] ([facility]) Name Value Range Interpretation Code Description Data Aby rce(s) Supporting Document(s) Glucose, Fasting 124 mg/dL 70-100 Above high [facility] Blood Urea Nitrogen 8 mg/dL 7-18 Normal (applies to non-nume clarissa results) [facility] ([facility]) Glomerular Filtration Rate Laboratory test result Normal (applies to non- numeric results) [facility] ([facility]) <content>Units are mL/min/1.73 m2</content>
<content></content>
<content>Chronic Kidney Disease Staging per NKF:</content>
<content></content>
<content>Stage I & II GFR >=60 Normal to Mildly Decreased</content>
<content>Stage III GFR 30- 59 Moderately Decreased</content>
<content>Stage IV GFR 15-29 Severely Decreased</content>
<content>Stage V GFR <15 Very Little GFR Left</content>
<content>ESRD GFR <15 on OBSTETRICS SCRUB NURSE</content>
<content></content> Creatinine For GFR 0.67 mg/dL 0.55-1.30 Normal (applies to non -numeric results) [facility]) Potassium Serum 3.1 meq/L 3.5-5.1 Below low normal [facility] ([facility]) Chloride Level 108 meq/L 98-107 Above high normal [facility] ([facility]) Sodium Level 142 meq/L 136-145 Normal (applies to non-numeric res ults) [facility] ([facility]) Anion Gap 8 meq/L 8-16 Normal (applies to non-numeric resul ts) [facility] ([facility]) Carbon Dioxide Level 26 meq/L 21-32 Normal (applies to non-num grady results) [facility] ([facility]) Calcium Level 7.7 mg/dL 8.8-10.2 Below low normal [facility] ([facility]) Ast/Sgot 15 U/L 7-37 Normal (applies to non-numeric resul ts) [facility] ([facility]) Alt/SGPT 13 U/L 12-78 Normal (applies to non-numeric resul ts) [facility] ([facility]) Alkaline Phosphatase 133 U/L 45-117 Above high normal [facility] ([facility]) Total Protein 5.2 GM/DL 6.4-8.2 Below low normal [facility] ([facility]) Bilirubin,Total 0.2 mg/dL 0.2-1.0 Normal (applies to non-numeric results) [facility] ([facility]) Albumin 2.2 GM/DL 3.2-5.2 Below low normal [facility] ( [facility]) Albumin/Globulin Ratio 0.7 1.2-2.2 Below low normal [facility] ([facility]) ID Date Data Source [id number] 08/31/2020 07:37:00 AM EST [facility] ([facility]) Name Value Range Interpretation Code Description Data Aby rce(s) Supporting Document(s) White Blood Count 15.7 10 4.0-10.0 Above high normal [facility] ([facility]) Red Blood Count 3.12 10 4.00-5.40 Below low normal [facility] ([facility]) Mean Corpuscular Volume 93.3 fl 80.0-96.0 Normal ( applies to non-numeric results) [facility] ([facility]) Hematocrit 29.1 % 36.0-47.0 Below low normal [facility] ( [facility]) Hemoglobin 9.2 g/dL 12.0-15.5 Below low normal [facility] ( [facility]) Mean Corpuscular Hemoglobin 29.5 pg 27.0-33.0 Norm al (applies to non-numeric results) [facility] ([facility]) Red Cell Distribution Width 16.9 % 11.5-14.5 Above high normal [facility] ([facility]) Mean Corpuscular HGB Conc 31.6 g/dL 32.0-36.5 Below low normal [facility] ([facility]) Lymph % 10.1 % 24.0-44.0 Below low normal [facility] ( [facility]) Neutrophils % 73.1 % 36.0-66.0 Above high normal [facility] ([facility]) Platelet Count, Automated 121 10 150-450 Below low normal [facility] ([facility]) Reagan % 7.0 % 0.0-5.0 Above high normal [facility] ([facility]) Eos % 0.4 % 0.0-3.0 Normal (applies to non-numeric resul ts) [facility] ([facility]) Baso % 0.6 % 0.0-1.0 Normal (applies to non-numeric resul ts) [facility] ([facility]) Neutrophils # 11.5 10 1.5-8.5 Above high normal [facility] ([facility]) Immature Granulocyte % 8.8 % 0-3.0 Above high normal [facility] ([facility]) Nucleated Red Blood Cell % 0.1 % 0-0 Above high normal [facility] ([facility]) Eos # 0.1 10 0.0-0.5 Normal (applies to non-numeric resul ts) [facility] ([facility]) Lymph # 1.6 10 1.5-5.0 Normal (applies to non-numeric resul ts) [facility] ([facility]) Reagan # 1.1 10 0.0-0.8 Above high normal [facility] ([facility]) Baso # 0.1 10 0.0-0.2 Normal (applies to non-numeric resul ts) [facility] ([facility]) ID Date Data Source [id number] 08/16/2020 09:40:00 AM EST [facility] ([facility]) Name Value Range Interpretation Code Description Data Aby rce(s) Supporting Document(s) White Blood Count 5.5 10 4.0-10.0 Normal (applies to non-numeri c results) [facility] ([facility]) Hemoglobin 10.2 g/dL 12.0-15.5 Below low normal [facility] ( [facility]) Red Blood Count 3.43 10 4.00-5.40 Below low normal [facility] ([facility]) Mean Corpuscular Volume 94.8 fl 80.0-96.0 Normal ( applies to non-numeric results) [facility] ([facility]) Hematocrit 32.5 % 36.0-47.0 Below low normal [facility] ( [facility]) Mean Corpuscular Hemoglobin 29.7 pg 27.0-33.0 Norm al (applies to non-numeric results) [facility] ([facility]) Red Cell Distribution Width 16.6 % 11.5-14.5 Above high normal [facility] ([facility]) Mean Corpuscular HGB Conc 31.4 g/dL 32.0-36.5 Below low normal [facility] ([facility]) Platelet Count, Automated 236 10 150-450 Normal (applies to non-numeric results) [facility] ([facility]) Neutrophils % 74.2 % 36.0-66.0 Above high normal [facility] ([facility]) Reagan % 7.2 % 0.0-5.0 Above high normal [facility] ([facility]) Lymph % 17.4 % 24.0-44.0 Below low normal [facility] ( [facility]) Baso % 0.6 % 0.0-1.0 Normal (applies to non-numeric resul ts) [facility] ([facility]) Immature Granulocyte % 0.2 % 0-3.0 Normal (applies to non-n umeric results) [facility] ([facility]) Eos % 0.4 % 0.0-3.0 Normal (applies to non-numeric resul ts) [facility] ([facility]) Lymph # 1.0 10 1.5-5.0 Below low normal [facility] ( [facility]) Nucleated Red Blood Cell % 0.0 % 0-0 Normal (applies to n on-numeric results) [facility] ([facility]) Neutrophils # 4.1 10 1.5-8.5 Normal (applies to non-numeric re sults) [facility] ([facility]) Baso # 0.0 10 0.0-0.2 Normal (applies to non-numeric resul ts) [facility] ([facility]) Reagan # 0.4 10 0.0-0.8 Normal (applies to non-numeric resul ts) [facility] ([facility]) Eos # 0.0 10 0.0-0.5 Normal (applies to non-numeric resul ts) [facility] ([facility]) ID Date Data Source [id number] 08/02/2020 11:26:00 AM EST [facility] ([facility]) Name Value Range Interpretation Code Description Data Aby rce(s) Supporting Document(s) Transferrin receptor.soluble [Mass/volume] in Serum or Plasm a 22.5 nmol/L 12.2-27.3 Normal (applies to non-numeric results) [facility] ([facility]) Performed at: [address] [id number] [address] [employer] Specialist: Sherron Cottrell MD, Phone: [phone] ID Date Data Source [id number] 08/02/2020 09:02:00 AM EST [facility] ([facility]) Name Value Range Interpretation Code Description Data Aby rce(s) Supporting Document(s) Vitamin B12 Level 353 pg/mL Normal (applies to non-numeri c results) [facility] ([facility]) VITAMIN B12 NORMAL RANGE NORMAL 247 - 911 PG/ML INDETERMINATE 211 - 246 PG/ML DEFICIENT LESS THAN 211 PG/ML Folate 14.1 ng/mL Normal (applies to non-numeric resul ts) [facility] ([facility]) FOLATE NORMAL RANGE NORMAL GREATER THAN 5.4 NG/ML INDETERMINATE 3.4-5.4 NG/ML DEFICIENT LESS THAN 3.4 NG/ML ID Date Data Source [id number] 08/02/2020 09:02:00 AM EST [facility] ([facility]) Name Value Range Interpretation Code Description Data Aby rce(s) Supporting Document(s) Cancer Ag 19-9 [Presence] in Serum or Plasma 69.0 U/ML Ab ove high normal [facility] ([facility]) THE CA 19-9 ASSAY IS PERFORMED ON THE [employer] BY CHEMILUMINESCENCE AND SHOULD NOT BE COMPARED INTERCHANGEABLY WITH OTHER METHODS. IT SHOULD NOT BE USED ALONE A SCREENING TEST OR DIAGNOSIS FOR THE PRESENCE OR ABSENCE OF MALIGNANT DISEASE. PREDICTIONS OF DISEASE RECURRENCE SHOULD NOT BE BASED SOLELY ON VALUES OBTAINED FROM SERIAL PATIENT SERUM VALUES. Carcinoembryonic Ag [Mass/volume] in Serum or Plasma 3.1 ng/mL Above high normal [facility] ([facility]) THE CEA ASSAY IS PERFORMED ON THE [employer] BY CHEMILUMINESCENCE AND SHOULD NOT BE COMPARED INTERCHANGEABLY WITH OTHER METHODS. IT SHOULD NOT BE USED ALONE A SCREENING TEST OR DIAGNOSIS FOR THE PRESENCE OR ABSENCE OF MALIGNANT DISEASE. PREDICTIONS OF DISEASE RECURRENCE SHOULD NOT BE BASED SOLELY ON VALUES OBTAINED FROM SERIAL PATIENT SERUM VALUES. ID Date Data Source [id number] 08/02/2020 09:02:00 AM EST [facility] ([facility]) Name Value Range Interpretation Code Description Data Aby rce(s) Supporting Document(s) Glucose, Fasting 96 mg/dL 70-100 Normal (applies to non-numeric results) [facility] ([facility]) Glomerular Filtration Rate Laboratory test result Normal (applies to non- numeric results) [facility] ([facility]) <content>Units are mL/min/1.73 m2</content>
<content></content>
<content>Chronic Kidney Disease Staging per NKF:</content>
<content></content>
<content>Stage I & II GFR >=60 Normal to Mildly Decreased</content>
<content>Stage III GFR 30- 59 Moderately Decreased</content>
<content>Stage IV GFR 15-29 Severely Decreased</content>
<content>Stage V GFR <15 Very Little GFR Left</content>
<content>ESRD GFR <15 on OBSTETRICS SCRUB NURSE</content>
<content></content> Blood Urea Nitrogen 11 mg/dL 7-18 Normal (applies to non-nume clarissa results) [facility] ([facility]) Creatinine For GFR 0.52 mg/dL 0.55-1.30 Below low normal [facility] ([facility]) Sodium Level 142 meq/L 136-145 Normal (applies to non-numeric res ults) [facility] ([facility]) Potassium Serum 3.9 meq/L 3.5-5.1 Normal (applies to non-numeric results) [facility] ([facility]) Chloride Level 109 meq/L 98-107 Above high normal [facility] ([facility]) Carbon Dioxide Level 26 meq/L 21-32 Normal (applies to non-num grady results) [facility] ([facility]) Anion Gap 7 meq/L 8-16 Below low normal [facility] ( [facility]) Alt/SGPT 12 U/L 12-78 Normal (applies to non-numeric resul ts) [facility] ([facility]) Calcium Level 8.1 mg/dL 8.8-10.2 Below low normal [facility] ([facility]) Ast/Sgot 15 U/L 7-37 Normal (applies to non-numeric resul ts) [facility] ([facility]) Total Protein 5.9 GM/DL 6.4-8.2 Below low normal [facility] ([facility]) Bilirubin,Total 0.5 mg/dL 0.2-1.0 Normal (applies to non-numeric results) [facility] ([facility]) Alkaline Phosphatase 115 U/L 45-117 Normal (applies to non-num grady results) [facility] ([facility]) Albumin/Globulin Ratio 0.6 1.2-2.2 Below low normal [facility] ([facility]) Albumin 2.3 GM/DL 3.2-5.2 Below low normal [facility] ( [facility]) ID Date Data Source [id number] 08/02/2020 09:02:00 AM EST [facility] ([facility]) Name Value Range Interpretation Code Description Data Aby rce(s) Supporting Document(s) Red Blood Count 3.31 10 4.00-5.40 Below low normal [facility] ([facility]) White Blood Count 4.6 10 4.0-10.0 Normal (applies to non-numeri c results) [facility] ([facility]) Hemoglobin 9.8 g/dL 12.0-15.5 Below low normal [facility] ( [facility]) Hematocrit 32.1 % 36.0-47.0 Below low normal [facility] ( [facility]) Mean Corpuscular Volume 97.0 fl 80.0-96.0 Above high normal [facility] ([facility]) Mean Corpuscular Hemoglobin 29.6 pg 27.0-33.0 Norm al (applies to non-numeric results) [facility] ([facility]) Mean Corpuscular HGB Conc 30.5 g/dL 32.0-36.5 Below low normal [facility] ([facility]) Red Cell Distribution Width 17.5 % 11.5-14.5 Above high normal [facility] ([facility]) Lymph % 21.5 % 24.0-44.0 Below low normal [facility] ( [facility]) Neutrophils % 70.5 % 36.0-66.0 Above high normal [facility] ([facility]) Platelet Count, Automated 216 10 150-450 Normal (applies to non-numeric results) [facility] ([facility]) Reagan % 6.8 % 0.0-5.0 Above high normal [facility] ([facility]) Baso % 0.4 % 0.0-1.0 Normal (applies to non-numeric resul ts) [facility] ([facility]) Eos % 0.4 % 0.0-3.0 Normal (applies to non-numeric resul ts) [facility] ([facility]) Neutrophils # 3.2 10 1.5-8.5 Normal (applies to non-numeric re sults) [facility] ([facility]) Nucleated Red Blood Cell % 0.0 % 0-0 Normal (applies to n on-numeric results) [facility] ([facility]) Immature Granulocyte % 0.4 % 0-3.0 Normal (applies to non-n umeric results) [facility] ([facility]) Eos # 0.0 10 0.0-0.5 Normal (applies to non-numeric resul ts) [facility] ([facility]) Reagan # 0.3 10 0.0-0.8 Normal (applies to non-numeric resul ts) [facility] ([facility]) Lymph # 1.0 10 1.5-5.0 Below low normal [facility] ( [facility]) Baso # 0.0 10 0.0-0.2 Normal (applies to non-numeric resul ts) [facility] ([facility]) ID Date Data Source [id number] 07/04/2020 02:46:00 PM EST [facility] ([facility]) Name Value Range Interpretation Code Description Data Aby rce(s) Supporting Document(s) White Blood Count 6.3 10 4.0-10.0 Normal (applies to non-numeri c results) [facility] ([facility]) Red Blood Count 3.00 10 4.00-5.40 Below low normal [facility] ([facility]) Mean Corpuscular Volume 98.0 fl 80.0-96.0 Above high normal [facility] ([facility]) Hemoglobin 8.9 g/dL 12.0-15.5 Below low normal [facility] ( [facility]) Hematocrit 29.4 % 36.0-47.0 Below low normal [facility] ( [facility]) Mean Corpuscular HGB Conc 30.3 g/dL 32.0-36.5 Below low normal [facility] ([facility]) Red Cell Distribution Width 16.6 % 11.5-14.5 Above high normal [facility] ([facility]) Mean Corpuscular Hemoglobin 29.7 pg 27.0-33.0 Norm al (applies to non-numeric results) [facility] ([facility]) Platelet Count, Automated 165 10 150-450 Normal (applies to non-numeric results) [facility] ([facility]) Lymph % 22.5 % 24.0-44.0 Below low normal [facility] ( [facility]) Neutrophils % 70.3 % 36.0-66.0 Above high normal [facility] ([facility]) Baso % 0.3 % 0.0-1.0 Normal (applies to non-numeric resul ts) [facility] ([facility]) Eos % 0.6 % 0.0-3.0 Normal (applies to non-numeric resul ts) [facility] ([facility]) Reagan % 5.8 % 0.0-5.0 Above high normal [facility] ([facility]) Neutrophils # 4.4 10 1.5-8.5 Normal (applies to non-numeric re sults) [facility] ([facility]) Immature Granulocyte % 0.5 % 0-3.0 Normal (applies to non-n umeric results) [facility] ([facility]) Nucleated Red Blood Cell % 0.0 % 0-0 Normal (applies to n on-numeric results) [facility] ([facility]) Lymph # 1.4 10 1.5-5.0 Below low normal [facility] ( [facility]) Eos # 0.0 10 0.0-0.5 Normal (applies to non-numeric resul ts) [facility] ([facility]) Reagan # 0.4 10 0.0-0.8 Normal (applies to non-numeric resul ts) [facility] ([facility]) Baso # 0.0 10 0.0-0.2 Normal (applies to non-numeric resul ts) [facility] ([facility]) ID Date Data Source [id number] 07/04/2020 02:46:00 PM EST [facility] ([facility]) Name Value Range Interpretation Code Description Data Aby rce(s) Supporting Document(s) Glucose, Fasting 142 mg/dL 70-100 Above high normal [facility] ([facility]) Blood Urea Nitrogen 12 mg/dL 7-18 Normal (applies to non-nume clarissa results) [facility] Creatinine For GFR 0.50 mg/dL 0.55-1.30 Below low normal [facility] ([facility]) Sodium Level 141 meq/L 136-145 Normal (applies to non-numeric res ults) [facility] Glomerular Filtration Rate Laboratory test result Normal (applies to non- numeric results) [facility] ([facility]) <content>Units are mL/min/1.73 m2</content>
<content></content>
<content>Chronic Kidney Disease Staging per NKF:</content>
<content></content>
<content>Stage I & II GFR >=60 Normal to Mildly Decreased</content>
<content>Stage III GFR 30- 59 Moderately Decreased</content>
<content>Stage IV GFR 15-29 Severely Decreased</content>
<content>Stage V GFR <15 Very Little GFR Left</content>
<content>ESRD GFR <15 on OBSTETRICS SCRUB NURSE</content>
<content></content> Carbon Dioxide Level 23 meq/L 21-32 Normal (applies to non-num grady results) [facility] Potassium Serum 3.5 meq/L 3.5-5.1 Normal (applies to non-numeric results) [facility] Chloride Level 111 meq/L 98-107 Above high normal [facility] ([facility]) Anion Gap 7 meq/L 8-16 Below low normal [facility] ( [facility]) Ast/Sgot 20 U/L 7-37 Normal (applies to non-numeric resul ts) [facility] ([facility]) Calcium Level 8.6 mg/dL 8.8-10.2 Below low normal [facility] ([facility]) Alt/SGPT 19 U/L 12-78 Normal (applies to non-numeric resul ts) [facility] ([facility]) Total Protein 6.0 GM/DL 6.4-8.2 Below low normal [place] [facility] ([facility]) Alkaline Phosphatase 122 U/L 45-117 Above high normal [facility] ([facility]) Bilirubin,Total 0.2 mg/dL 0.2-1.0 Normal (applies to non-numeric results) [facility]) Albumin/Globulin Ratio 0.8 1.2-2.2 Below low normal [facility] ([facility]) Albumin 2.6 GM/DL 3.2-5.2 Below low normal [facility] ( [facility]) ID Date Data Source [id number] 07/04/2020 02:46:00 PM EST [facility] Name Value Range Interpretation Code Description Data Aby rce(s) Supporting Document(s) Cancer Ag 19-9 [Presence] in Serum or Plasma 31.0 U/ML Normal (applies to non- numeric results) [facility] ([facility]) THE CA 19-9 ASSAY IS PERFORMED ON THE HalldisAUR BY CHEMILUMINESCENCE AND SHOULD NOT BE COMPARED INTERCHANGEABLY WITH OTHER METHODS. IT SHOULD NOT BE USED ALONE A SCREENING TEST OR DIAGNOSIS FOR THE PRESENCE OR ABSENCE OF MALIGNANT DISEASE. PREDICTIONS OF DISEASE RECURRENCE SHOULD NOT BE BASED SOLELY ON VALUES OBTAINED FROM SERIAL PATIENT SERUM VALUES. Thyrotropin [Units/volume] in Serum or Plasma 13.300 uIU/ML 0. 358-3.740 Above high normal [facility] ([facility]) Thyroxine (T4) free [Mass/volume] in Serum or Plasma 1.01 ng/dL 0.76-1.46 Normal (applies to non-numeric results) [facility] ([facility]) ID Date Data Source [id number] 06/02/2020 02:47:00 PM EDT [facility]) Name Value Range Interpretation Code Description Data Aby rce(s) Supporting Document(s) Cancer Ag 19-9 [Presence] in Serum or Plasma 26.8 U/ML Normal (applies to non- numeric results) [facility] ([facility]) THE CA 19-9 ASSAY IS PERFORMED ON THE Tripos[employer] BY CHEMILUMINESCENCE AND SHOULD NOT BE COMPARED INTERCHANGEABLY WITH OTHER METHODS. IT SHOULD NOT BE USED ALONE A SCREENING TEST OR DIAGNOSIS FOR THE PRESENCE OR ABSENCE OF MALIGNANT DISEASE. PREDICTIONS OF DISEASE RECURRENCE SHOULD NOT BE BASED SOLELY ON VALUES OBTAINED FROM SERIAL PATIENT SERUM VALUES. ID Date Data Source [id number] 06/02/2020 02:47:00 PM EDT [facility] Name Value Range Interpretation Code Description Data Aby rce(s) Supporting Document(s) Creatinine For GFR 0.38 mg/dL 0.55-1.30 Below low normal [facility] ([facility]) Glucose, Fasting 98 mg/dL 70-100 Normal (applies to non-numeric results) [facility] ([facility]) Blood Urea Nitrogen 9 mg/dL 7-18 Normal (applies to non-nume clarissa results) [facility] ([facility]) Glomerular Filtration Rate Laboratory test result Normal (applies to non- numeric results) [facility]) <content>Units are mL/min/1.73 m2</content>
<content></content>
<content>Chronic Kidney Disease Staging per NKF:</content>
<content></content>
<content>Stage I & II GFR >=60 Normal to Mildly Decreased</content>
<content>Stage III GFR 30- 59 Moderately Decreased</content>
<content>Stage IV GFR 15-29 Severely Decreased</content>
<content>Stage V GFR <15 Very Little GFR Left</content>
<content>ESRD GFR <15 on OBSTETRICS SCRUB NURSE</content>
<content></content> Potassium Serum 4.0 meq/L 3.5-5.1 Normal (applies to non-numeric results) [facility] ([facility]) Sodium Level 141 meq/L 136-145 Normal (applies to non-numeric res ults) [facility] ([facility]) Anion Gap 6 meq/L 8-16 Below low normal [facility] ( [facility]) Carbon Dioxide Level 26 meq/L 21-32 Normal (applies to non-num grady results) [facility] ([facility]) Chloride Level 109 meq/L 98-107 Above high normal [facility] ([facility]) Ast/Sgot 36 U/L 7-37 Normal (applies to non-numeric resul ts) [facility] ([facility]) Calcium Level 7.9 mg/dL 8.8-10.2 Below low normal [facility] ([facility]) Alkaline Phosphatase 138 U/L 45-117 Above high normal [facility]) Alt/SGPT 37 U/L 12-78 Normal (applies to non-numeric resul ts) [facility] ([facility]) Bilirubin,Total 0.2 mg/dL 0.2-1.0 Normal (applies to non-numeric results) [facility] ([facility]) Albumin/Globulin Ratio 0.5 1.2-2.2 Below low normal [facility]) Total Protein 6.3 GM/DL 6.4-8.2 Below low normal [facility] ([facility]) Albumin 2.0 GM/DL 3.2-5.2 Below low normal [facility] ( [facility]) ID Date Data Source [id number] 06/02/2020 02:47:00 PM EDT [facility] ([facility]) Name Value Range Interpretation Code Description Data Aby rce(s) Supporting Document(s) White Blood Count 7.8 10 4.0-10.0 Normal (applies to non-numeri c results) [facility] ([facility]) Red Blood Count 2.47 10 4.00-5.40 Below low normal [facility] ([facility]) Hematocrit 25.3 % 36.0-47.0 Below low normal [facility] ( [facility]) Hemoglobin 7.8 g/dL 12.0-15.5 Below low normal [facility] ( [facility]) Mean Corpuscular Hemoglobin 31.6 pg 27.0-33.0 Norm al (applies to non-numeric results) [facility] ([facility]) Mean Corpuscular HGB Conc 30.8 g/dL 32.0-36.5 Below low normal [facility] ([facility]) Mean Corpuscular Volume 102.4 fl 80.0-96.0 Above high normal [facility] ([facility]) Platelet Count, Automated 318 10 150-450 Normal (applies to non-numeric results) [facility] ([facility]) Neutrophils % 73.7 % 36.0-66.0 Above high normal [facility] ([facility]) Red Cell Distribution Width 13.4 % 11.5-14.5 Norm al (applies to non-numeric results) [facility] ([facility]) Reagan % 6.0 % 0.0-5.0 Above high normal [facility] ([facility]) Lymph % 19.1 % 24.0-44.0 Below low normal [facility] ( [facility]) Eos % 0.4 % 0.0-3.0 Normal (applies to non-numeric resul ts) [facility] ([facility]) Baso % 0.3 % 0.0-1.0 Normal (applies to non-numeric resul ts) [facility] ([facility]) Immature Granulocyte % 0.5 % 0-3.0 Normal (applies to non-n umeric results) [facility] ([facility]) Nucleated Red Blood Cell % 0.0 % 0-0 Normal (applies to n on-numeric results) [facility] ([facility]) Reagan # 0.5 10 0.0-0.8 Normal (applies to non-numeric resul ts) [facility] ([facility]) Lymph # 1.5 10 1.5-5.0 Normal (applies to non-numeric resul ts) [facility] ([facility]) Neutrophils # 5.8 10 1.5-8.5 Normal (applies to non-numeric re sults) [facility] ([facility]) Eos # 0.0 10 0.0-0.5 Normal (applies to non-numeric resul ts) [facility] ([facility]) Baso # 0.0 10 0.0-0.2 Normal (applies to non-numeric resul ts) [facility] ([facility]) ID Date Data Source [id number] 05/24/2020 12:00:00 AM EDT [facility] Name Value Range Interpretation Code Description Data Aby rce(s) Supporting Document(s) SARS coronavirus 2 RNA panel [facility] This lab was ordered by [facility] [employer] [facility] and reported by [facility]. ID Date Data Source [id number] 05/16/2020 12:00:00 AM EDT [facility] Name Value Range Interpretation Code Description Data Aby rce(s) Supporting Document(s) SARS coronavirus 2 RNA panel [facility] This lab was ordered by [employer] [facility] and reported by [facility]. ID Date Data Source [id number] 04/30/2020 12:00:00 AM EDT [facility] Name Value Range Interpretation Code Description Data Aby rce(s) Supporting Document(s) SARS coronavirus 2 RNA panel N [facility] This lab was ordered by [facility] and reported by [facility]. ID Date Data Source [id number] 03/29/2020 12:00:00 AM EDT [facility] Name Value Range Interpretation Code Description Data Aby rce(s) Supporting Document(s) SARS coronavirus 2 RNA panel N [facility] This lab was ordered by [employer] [facility] and reported by [facility]. ID Date Data Source [id number] 03/24/2020 09:21:00 AM EDT [facility] ([facility]) Name Value Range Interpretation Code Description Data Aby rce(s) Supporting Document(s) Prealbumin [Mass/volume] in Serum or Plasma 8.9 mg/dL 20.0 -40.0 Below low normal [facility] ([facility]) Cancer Ag 19-9 [Presence] in Serum or Plasma 30.0 U/ML Normal (applies to non- numeric results) [facility] THE CA 19-9 ASSAY IS PERFORMED ON THE HalldisAUR BY CHEMILUMINESCENCE AND SHOULD NOT BE COMPARED INTERCHANGEABLY WITH OTHER METHODS. IT SHOULD NOT BE USED ALONE A SCREENING TEST OR DIAGNOSIS FOR THE PRESENCE OR ABSENCE OF MALIGNANT DISEASE. PREDICTIONS OF DISEASE RECURRENCE SHOULD NOT BE BASED SOLELY ON VALUES OBTAINED FROM SERIAL PATIENT SERUM VALUES. ID Date Data Source [id number] 03/24/2020 09:21:00 AM EDT [facility] Name Value Range Interpretation Code Description Data Aby rce(s) Supporting Document(s) Blood Urea Nitrogen 9 mg/dL 7-18 Normal (applies to non-nume clarissa results) [facility] ([facility]) Glucose, Fasting 84 mg/dL 70-100 Normal (applies to non-numeric results) [facility] ([facility]) Creatinine For GFR 0.43 mg/dL 0.55-1.30 Below low normal [facility] ([facility]) Sodium Level 145 meq/L 136-145 Normal (applies to non-numeric res ults) [facility] ([facility]) Glomerular Filtration Rate Laboratory test result Normal (applies to non- numeric results) [facility]) <content>Units are mL/min/1.73 m2</content>
<content></content>
<content>Chronic Kidney Disease Staging per NKF:</content>
<content></content>
<content>Stage I & II GFR >=60 Normal to Mildly Decreased</content>
<content>Stage III GFR 30- 59 Moderately Decreased</content>
<content>Stage IV GFR 15-29 Severely Decreased</content>
<content>Stage V GFR <15 Very Little GFR Left</content>
<content>ESRD GFR <15 on OBSTETRICS SCRUB NURSE</content>
<content></content> Chloride Level 113 meq/L 98-107 Above high normal [facility] ([facility]) Potassium Serum 3.5 meq/L 3.5-5.1 Normal (applies to non-numeric results) [facility] ([facility]) Carbon Dioxide Level 30 meq/L 21-32 Normal (applies to non-num grady results) [facility] ([facility]) Calcium Level 8.4 mg/dL 8.8-10.2 Below low normal [facility] ([facility]) Anion Gap 2 meq/L 8-16 Below low normal [facility] ( [facility]) Alkaline Phosphatase 195 U/L 45-117 Above high normal [facility] ([facility]) Ast/Sgot 84 U/L 7-37 Above high normal [facility] ([facility]) Alt/SGPT 60 U/L 12-78 Normal (applies to non-numeric resul ts) [facility] ([facility]) Total Protein 5.8 GM/DL 6.4-8.2 Below low normal [facility] ([facility]) Albumin 3.0 GM/DL 3.2-5.2 Below low normal [facility] ( [facility]) Bilirubin,Total 1.3 mg/dL 0.2-1.0 Above high normal [facility] ([facility]) Albumin/Globulin Ratio 1.1 1.2-2.2 Below low normal [facility] ([facility]) ID Date Data Source [id number] 03/24/2020 09:21:00 AM EDT [facility] ([facility]) Name Value Range Interpretation Code Description Data Aby rce(s) Supporting Document(s) White Blood Count 3.9 10 4.0-10.0 Below low normal [facility] ([facility]) Hemoglobin 10.6 g/dL 12.0-15.5 Below low normal [facility] ( [facility]) Red Blood Count 2.93 10 4.00-5.40 Below low normal [facility] ([facility]) Mean Corpuscular Volume 110.6 fl 80.0-96.0 Above high normal [facility] ([facility]) Hematocrit 32.4 % 36.0-47.0 Below low normal [facility] ( [facility]) Mean Corpuscular Hemoglobin 36.2 pg 27.0-33.0 Above high normal [facility] ([facility]) Red Cell Distribution Width 15.9 % 11.5-14.5 Above high normal [facility] ([facility]) Platelet Count, Automated 173 10 150-450 Normal (applies to non-numeric results) [facility] ([facility]) Mean Corpuscular HGB Conc 32.7 g/dL 32.0-36.5 Normal (applies to non-numeric results) [facility] ([facility]) Neutrophils % 65.0 % 36.0-66.0 Normal (applies to non-numeric re sults) [facility] ([facility]) Lymph % 26.5 % 24.0-44.0 Normal (applies to non-numeric resul ts) [facility] ([facility]) Reagan % 7.5 % 0.0-5.0 Above high normal [facility] ([facility]) Baso % 0.5 % 0.0-1.0 Normal (applies to non-numeric resul ts) [facility] ([facility]) Immature Granulocyte % 0.0 % 0-3.0 Normal (applies to non-n umeric results) [facility] ([facility]) Eos % 0.5 % 0.0-3.0 Normal (applies to non-numeric resul ts) [facility] ([facility]) Lymph # 1.0 10 1.5-5.0 Below low normal [facility] ( [facility]) Neutrophils # 2.5 10 1.5-8.5 Normal (applies to non-numeric re sults) [facility] ([facility]) Nucleated Red Blood Cell % 0.0 % 0-0 Normal (applies to n on-numeric results) [facility] ([facility]) Reagan # 0.3 10 0.0-0.8 Normal (applies to non-numeric resul ts) [facility] ([facility]) Eos # 0.0 10 0.0-0.5 Normal (applies to non-numeric resul ts) [facility] ([facility]) Baso # 0.0 10 0.0-0.2 Normal (applies to non-numeric resul ts) [facility] ([facility]) ID Date Data Source [id number] 03/24/2020 09:21:00 AM EDT [facility] Name Value Range Interpretation Code Description Data Aby rce(s) Supporting Document(s) Prothrombin Time 15.5 s 11.8-14.0 Above high normal [facility] Partial Thromboplastin Time 33.0 s 25.0-38.4 Norm al (applies to non-numeric results) [facility] ([facility]) Inr 1.20 Normal (applies to non-numeric resul ts) [facility] ([facility]) THERAPUTIC HUMAN INR VALUES INDICATIONS NORMAL RANGES PROPHYLAXIS/TREATMENT OF: VENOUS THROMBOSIS 2.0-3.0 PULMONARY EMBOLISM 2.0-3.0 PREVENTION OF SYSTEMIC EMBOLISM FROM: TISSUE HEART VALVES 2.0-3.0 ACUTE MYOCARDIAL INFARCTION 2.0-3.0 VALVULAR HEART DISEASE 2.0-3.0 ATRIAL FIBRILLATION 2.0-3.0 MECHANICAL VALVES(HIGH RISK) 2.5-3.5 RECURRENT MYOCARDIAL INFARCTION 2.5-3.5 ID Date Data Source [id number] 03/08/2020 09:23:00 AM EDT [facility] ([facility]) Name Value Range Interpretation Code Description Data Aby rce(s) Supporting Document(s) Cancer Ag 19-9 [Presence] in Serum or Plasma Laboratory test res ult Normal (applies to non-numeric results) [facility] ([facility]) ID Date Data Source [id number] 03/08/2020 09:23:00 AM EDT [facility] ([facility]) Name Value Range Interpretation Code Description Data Aby rce(s) Supporting Document(s) Blood Urea Nitrogen 11 mg/dL 7-18 Normal (applies to non-nume clarissa results) [facility] ([facility]) Creatinine For GFR 0.46 mg/dL 0.55-1.30 Below low normal [facility] ([facility]) Glucose, Fasting 96 mg/dL 70-100 Normal (applies to non-numeric results) [facility] ([facility]) Potassium Serum 3.0 meq/L 3.5-5.1 Below low normal [facility] ([facility]) Sodium Level 146 meq/L 136-145 Above high normal [facility] ([facility]) Glomerular Filtration Rate Laboratory test result Normal (applies to non- numeric results) [facility]) <content>Units are mL/min/1.73 m2</content>
<content></content>
<content>Chronic Kidney Disease Staging per NKF:</content>
<content></content>
<content>Stage I & II GFR >=60 Normal to Mildly Decreased</content>
<content>Stage III GFR 30- 59 Moderately Decreased</content>
<content>Stage IV GFR 15-29 Severely Decreased</content>
<content>Stage V GFR <15 Very Little GFR Left</content>
<content>ESRD GFR <15 on OBSTETRICS SCRUB NURSE</content>
<content></content> Carbon Dioxide Level 27 meq/L 21-32 Normal (applies to non-num grady results) [facility] ([facility]) Anion Gap 8 meq/L 8-16 Normal (applies to non-numeric resul ts) [facility] ([facility]) Chloride Level 111 meq/L 98-107 Above high normal [facility] ([facility]) Alt/SGPT 101 U/L 12-78 Above high normal [facility] Calcium Level 8.2 mg/dL 8.8-10.2 Below low normal [facility] ([facility]) Ast/Sgot 93 U/L 7-37 Above high normal [facility] Alkaline Phosphatase 227 U/L 45-117 Above high normal [facility] Total Protein 5.5 GM/DL 6.4-8.2 Below low normal [facility] ([facility]) Bilirubin,Total 0.7 mg/dL 0.2-1.0 Normal (applies to non-numeric results) [facility] ([facility]) Albumin/Globulin Ratio 1.1 1.2-2.2 Below low normal [facility] Albumin 2.9 GM/DL 3.2-5.2 Below low normal [facility] ( [facility]) ID Date Data Source [id number] 03/08/2020 09:23:00 AM EDT [facility] ([facility]) Name Value Range Interpretation Code Description Data Aby rce(s) Supporting Document(s) White Blood Count 6.8 10 4.0-10.0 Normal (applies to non-numeri c results) [facility] ([facility]) Red Blood Count 2.91 10 4.00-5.40 Below low normal [facility] ([facility]) Hemoglobin 10.0 g/dL 12.0-15.5 Below low normal [facility] ( [facility]) Hematocrit 30.3 % 36.0-47.0 Below low normal [facility] ( [facility]) Mean Corpuscular HGB Conc 33.0 g/dL 32.0-36.5 Normal (applies to non-numeric results) [facility] ([facility]) Mean Corpuscular Volume 104.1 fl 80.0-96.0 Above high normal [facility] ([facility]) Mean Corpuscular Hemoglobin 34.4 pg 27.0-33.0 Above high normal [facility] ([facility]) Red Cell Distribution Width 17.4 % 11.5-14.5 Above high normal [facility] ([facility]) Neutrophils % 69.3 % 36.0-66.0 Above high normal [facility] ([facility]) Platelet Count, Automated 125 10 150-450 Below low normal [facility] ([facility]) Lymph % 19.2 % 24.0-44.0 Below low normal [facility] ( [facility]) Reagan % 10.0 % 0.0-5.0 Above high normal [facility] ([facility]) Eos % 0.3 % 0.0-3.0 Normal (applies to non-numeric resul ts) [facility] ([facility]) Baso % 0.6 % 0.0-1.0 Normal (applies to non-numeric resul ts) [facility] ([facility]) Nucleated Red Blood Cell % 0.0 % 0-0 Normal (applies to n on-numeric results) [facility] ([facility]) Immature Granulocyte % 0.6 % 0-3.0 Normal (applies to non-n umeric results) [facility] ([facility]) Neutrophils # 4.7 10 1.5-8.5 Normal (applies to non-numeric re sults) [facility] ([facility]) Lymph # 1.3 10 1.5-5.0 Below low normal [facility] ( [facility]) Baso # 0.0 10 0.0-0.2 Normal (applies to non-numeric resul ts) [facility] ([facility]) Reagan # 0.7 10 0.0-0.8 Normal (applies to non-numeric resul ts) [facility] ([facility]) Eos # 0.0 10 0.0-0.5 Normal (applies to non-numeric resul ts) [facility] ([facility]) ID Date Data Source [id number] 11/25/2019 04:00:53 PM EDT [facility] Name Value Range Interpretation Code Description Data Aby rce(s) Supporting Document(s) Progress Note [facility] [id number] lbm [file] AgICAgICAgICAgICAgICAgICAgICAgICAgICAgICAgICAgICAgICAgICAgICAgICAgICAgICAgICAgIC AgICAgICAgICAgICAgDQogICAgICAgICAgICAgICAg ICAgICAgICAgICAgICAgICAgICAgICAgICAgICAgICAgICAgICAgICAgICAgICAgICAgICAgICAgICAg ICAgICAgICAgICAgICAgICAgICAgICAgDQogICAgICAgICAgICAgICAgICAgICAgICAgICAgICAgICAg ICAgICAgICAgICAgICAgICAgICAgICAgICAgICAgIC AgICAgICAgICAgICAgICAgICAgICAgICAgICAgICAgICAgDQogICAgICAgICAgICAgICAgICAgICAgIC AgICAgICAgICAgICAgICAgICAgICAgICAgICAgICAgICAgICAgICAgICAgICAgICAgICAgICAgICAgIC AgICAgICAgICAgICAgICAgDQogICAgICAgICAgICAg ICAgICAgICAgICAgICAgICAgICAgICAgICAgICAgICAgICAgICAgICAgICAgICAgICAgICAgICAgICAg ICAgICAgICAgICAgICAgICAgICAgICAgICAgDQogICAgICAgICAgICAgICAgICAgICAgICAgICAgICAg ICAgICAgICAgICAgICAgICAgICAgICAgICAgICAgIC AgICAgICAgICAgICAgICAgICAgICAgICAgICAgICAgICAgICAgDQogICAgICAgICAgICAgICAgICAgIC AgICAgICAgICAgICAgICAgICAgICAgICAgICAgICAgICAgICAgICAgICAgICAgICAgICAgICAgICAgIC AgICAgICAgICAgICAgICAgICAgDQogICAgICAgICAg ICAgICAgICAgICAgICAgICAgICAgICAgICAgICAgICAgICAgICAgICAgICAgICAgICAgICAgICAgICAg ICAgICAgICAgICAgICAgICAgICAgICAgICAgICAgDQogICAgICAgICAgICAgICAgICAgICAgICAgICAg ICAgICAgICAgICAgICAgICAgICAgICAgICAgICAgIC AgICAgICAgICAgICAgICAgICAgICAgICAgICAgICAgICAgICAgICAgDQogICAgICAgICAgICAgICAgIC AgICAgICAgICAgICAgICAgICAgICAgICAgICAgICAgICAgICAgICAgICAgICAgICAgICAgICAgICAgIC RbCUAiJSJiITPwRRPiWWUsEWSzDEYmQTy8F4gxFDFr EJUjOR1dFFg7Qm4+AQpIBjFoKGG9slNovN2VIJ3nu6EtYBalKWWki7DcZDr6VS6UQGDrKJgeLZ8OFOjn qe1RVSVgIRCzzMRJl9cbEbEoRXR9NBDtXqkeDA0OAECvM1atbpQgBEWhGJOLKSnmOMXJUYywUNTRINSy QBNxPlUrBZokDI8Zd5AymAO0EOe+Jb8PPD6of6JdZF xpVJHfGY4obk8FGQbQYaXcL1MpwwL9GKV0PBVkPk9NFLAeDJJazDEgWZEoYVMKJkVlI7LgnG01ZJEVMm 4+ALwfxlChJfeVGhZ5CYIqk8AnCTx3MW8VLAVqOIb7dRSsWFWcX6Txz0OmPm00KWKvUwvwQ85ytSIcgy NUMGOdPSvafDZckslgAvEtKNBzWB3jGY8aMOJlQAUo LiWqUUGQJE6PLYLkQVBrpLJuYTAeMNPGSL6PRNlyESL5VGTochSycZHyVHqnAE6BAYThrdBbDthyUHKO DQo+Jf4LGJ0ni1SiHExxMZFfKM7awf5FSOlRUoCmX6D1sJUzZ1C1PXqyLm3PQFGoQEIsWcFlQETKDUuo CX7DOA5uevB7TU5OlFLgFRQkZQQfzBZiFBx3O72dqK EkGAizDE9RVLY+Mariaa+Gb5BVSHbMWTdFGOcLaZrNCHSVzWxC9FaX8WOq6CqP8QsQC42aZidyvYeWMwoLO 1SKW1sMMXwWCHWNM4EvDUosL4iyvAoQZGcWVJFHjPcM89bzJKbBRNwMZE4WHGgCi7GIGCcC5VzspKrdH suzfWvLRJpSUXMQS4DEPygzqVcmZHkqElxMP66yRxj KA4HOx3FLqEuCH0tfw7PgUTvKu7CEVJiOV9DSUXkCFDsASIqHUE4WMSvMkGoMDehUVBzNFDiSRL1QPZp FLPkUQ3WNgTbAKKbANP0VVFdXFHhHVOpth9XILYdPDM7SkY1PSAsYJJwKOGhOQecQTFhAZHaBEG0ENOn PHKqQW8QTvHfMXDrUPP6BBJbNUOlZQWotb6LYFDzXH OrEZP1MORaLOQtKVVwKAljFDWwYBL6SKTkXAZaWVTvFI4WCrVcZUXzXOyvTZguOGKvTVFlyo1FQWZkUB DpCOBuCSVrVGHfLSIeSEueNJLrDGXgSGPjWIUyYDVgKM2RQrIhTEMnIYZ6XwXkMVJpPZLbez4ANOFwFX YwNzB4LeOtAOIiLDErDLalTQAhZBJ7JJOtWLNqTKWu XH9QKaNfXEQkABLsRuqpLPZvVMPmpc9LGAUhZCJqCZKnVjJrRZJmPTZyIDsaSIYjAYY2BDmeWTDvYTXh OI3KHrRrYVYsTKH1MgGoCUFqOHRthm7ZEJDeMIZtUNe2FKHpUKAjHBDbXAtpCUHsJCZ6BeopHHGjXCBt VJ8SKyJsNRGbNPk7HNZbGMTdIPQaqd9LEBNvROA9IB AcWuEvMBRbXCLaRSyaGDDdCEQ1PJB6EQWrRTQcAZ0ODzXgTWHzFQncYLFqZILdPOFdbq4MCTDxHHH2AG EnCPWdDVTgZWJeUNbpTENfOORwZjF5JDEkRHEvVH7KTeXwESYbUQCwXORzRZVcCFYagb4GUZQoUBQ3WF iuKMKmNEBtISGnNOykZKAfSPFuGiA1NZDwOASqZU5B AhCuGWPsGNUcNkihJFQxGOJjiy7BPKPvBMR7IpO5LaDpQVWcCAKhOZv0utUxdUZuJPv9FE2EJ7TjafTq DyCDWk9Mm057OXCyQHGaHl7NQ4xjUk8lVEXpKRPVXx7SCFt6ZFPgFtSbJsKoTPUwJRThUtDtAHK7BVF3 YzhmZTQwNDI+SIcpDWJtHhSaJKM0OSNbGHA7I3IgCG z9LuCxUCLpPEV4Vr5zEGPFNo3+OXcdmZQgqApeAJISTcKrIbB3ZWlaLHDMJz6S ID Date Data Source [id number] 11/25/2019 02:06:15 PM EDT [facility] Name Value Range Interpretation Code Description Data Aby rce(s) Supporting Document(s) Progress Note [facility] IKJSJa2vVcJARiSq02/MOXxxPMVxk7TnQRyuTXr0UQheSOQqM0OzOPJ1uU4qNLZ4CCgSPvPtXiDtYKI9 lbm YaPqeGJtJxEQKjYwyQWdSuRLkfYqlraDFaEF3FnPY0IDNjY58lSJUnYRDzE9ZfEKU9ZtG+Iq3OPUBphB FxSS0PKkjJ1Jwzh+M2DP4+CF4AsNJrl9rtymbRQxLFfED91zletRWxFVL5gJtpIC0asqHr32+fbEtxqC qggBDXmC5EV3W0qUIQSd4Vqw0+XJyuiUIZ5j/mMU4o uweaq21TtZyzS1C86RDRPwitGP4WhDxM/j0bN0vdF9ziJaLjPnNZ0ZxVFqnN6QpfJCcrG4ugv47VIu2w 0yJFV+sn1Eb0BTrJCDFL2tw6vHkP5x/T1h1XBKvY4GNshGUOHGnyTTDe4cXhQej3ZNG42HvXCjsO0VSA xJP1Pop15igZyypN4EGcJQRC9F9+qZtqAMrxlyHUoS A4VUyFEjotEvr0sJYvo0kHdAo9Kct7xYog75uMru+fbHcskcpmryl5GuwzfEBHScAH6WH+WM0pj8AtoF ZajUHZrnN/JJiTu07nCFtSm/98dgSoqw8WDz0yMCcztwOG297h5u/1/GivVLwuuLpzJRM8Nu2LnnaUw+ CrzIoLmYbjc1OOJCZrz9fMv0DQBVPXbU18K3GkuJ3t y0eEZinga60B0CM/ZA9G5jCWQWyCg1KIPQYQnNh+oNLSK3KPomRHFGnzER4HYMTECeE/3Gjh189jj6Vv KpbvbwoxFUUhJu/8ykmu52M+8Wd24qwKYZXllePHDuDNBK2FsaLMTKnoddrUEl5QuEnoYSU63QGgyZIw bVfCH2HnZFmromWWK6B6vtsGFspCbv07jYw2OUCBaS VNS4G+ReOF/4tZPYJBBO4IpuatHGX8smR3t/3YlJF5fPJyjjlRAnmamPs3w5EAAkomY2NgY+ay3z+ly3 S00HYKE0kmlxBljuc/SUMMERS+MWDDdECNq0xSKmUI3B5ezuSo0DKC8PqfBU/mA56Atk3lgW/kAvAmttKima [file] AgICAgICAgICAgICAgICAgICAgICAgICAgICAgICAg ICAgICAgICAgICAgICAgICAgICANCiAgICAgICAgICAgICAgICAgICAgICAgICAgICAgICAgICAgICAg ICAgICAgICAgICAgICAgICAgICAgICAgICAgICAgICAgICAgICAgICAgICAgICAgICAgICAgICAgICAg ICANCiAgICAgICAgICAgICAgICAgICAgICAgICAgIC AgICAgICAgICAgICAgICAgICAgICAgICAgICAgICAgICAgICAgICAgICAgICAgICAgICAgICAgICAgIC AgICAgICAgICAgICANCiAgICAgICAgICAgICAgICAgICAgICAgICAgICAgICAgICAgICAgICAgICAgIC AgICAgICAgICAgICAgICAgICAgICAgICAgICAgICAg ICAgICAgICAgICAgICAgICAgICAgICANCiAgICAgICAgICAgICAgICAgICAgICAgICAgICAgICAgICAg ICAgICAgICAgICAgICAgICAgICAgICAgICAgICAgICAgICAgICAgICAgICAgICAgICAgICAgICAgICAg ICAgICANCiAgICAgICAgICAgICAgICAgICAgICAgIC AgICAgICAgICAgICAgICAgICAgICAgICAgICAgICAgICAgICAgICAgICAgICAgICAgICAgICAgICAgIC AgICAgICAgICAgICAgICANCiAgICAgICAgICAgICAgICAgICAgICAgICAgICAgICAgICAgICAgICAgIC AgICAgICAgICAgICAgICAgICAgICAgICAgICAgICAg ICAgICAgICAgICAgICAgICAgICAgICAgICANCiAgICAgICAgICAgICAgICAgICAgICAgICAgICAgICAg ICAgICAgICAgICAgICAgICAgICAgICAgICAgICAgICAgICAgICAgICAgICAgICAgICAgICAgICAgICAg ICAgICAgICANCiAgICAgICAgICAgICAgICAgICAgIC AgICAgICAgICAgICAgICAgICAgICAgICAgICAgICAgICAgICAgICAgICAgICAgICAgICAgICAgICAgIC AgICAgICAgICAgICAgICAgICANCiAgICAgICAgICAgICAgICAgICAgICAgICAgICAgICAgICAgICAgIC AgICAgICAgICAgICAgICAgICAgICAgICAgICAgICAg ICAgICAgICAgICAgICAgICAgICAgICAgICAgICANCjw/uGCkX8cwvHMdppB8G4goUn6WIt1FBE1iy7Jk JKEfMHdtwrAkLvwVWnFxZYYzHjeDTxd1JAzqFM8VjSTyE2AgA9LrWEleNV7AKQAhRMTpfBGtLXDyUJIx EoE7ZLIzYXtsMN7MiLPoTVanDGDxUHCjYM4OPOYrH6 09szKuGJ7HSd8VIwGoHJ1tcm4XMCgvNEAqHyzVVju7DEwoNF7XwPZzcWJwZTVpQQRCSwLxL8idw2EgNm ZwCOAWSVegOC6Ho5FosFJlMMi+Ip7PRM7uy8GwYWqxCUFoGZ6wvl2SCXaCMfZtN1SfmEipMFMlh2ugRC SfJW4ygXVfSSK0ZYdkgjWlLCZzFSOntQmkKKGtaTVi xFLgXRjGO3fgILOjWL6yXC5zEDJyVXSdIdM1SZGQTT8PPYRrODHwkVVuEZDwARDXYP9NOCplZHP6QYWp tfAzzNKyPUotLJ1YOSTkhvGoDJcdRIXLXWf+Cn2BIQ8mi1QgJIgqZGQrOH0jrx1XUBzMWsCqB0D9tNIk C3H3XNtdZe2JPUYzKJKjNTphXBZZFMddQZ3FXA9vqf V9BG7WsHKiZZErRYWcgDVlGDd9O92lvXGeGEubBE5QSUG+Mariaa+Zz6VOJXwQMQzAQRcQuPbIZYWZzCkZ5 OzF3JVy5FqO7VwLD96yRlkimUfWEpuUK8FAO5sIUZwTPUWGK1MdEPxkB4tetJlXMQbSSNRUxYkN38pdG LkWDWzMVI1EDKlXu3RVYFxK2RxisOtvRacknQvUKRe PJMXJY0WEYdiuwUccULhePruXD68yVstJM3JGm3XKcHeFM6mqh8SxARiYo8HXEYuMu1NFARbSVNlATLn IBT8NTRwXuEsEBsoMZIzPLNlMDO0TDFiTDAvJD2JKgFlSSQsRSH8RmrpQFGvKORhya8ROWMcTIIgQYH6 XyQtKIAcEESjAKxmBAJoXRLwEOZ7VEKhJVReTV1ZIl GjVQPmOIK4IjOrCLXkFWWxcs9FJHEnMAKhFYn5BTUoBVBkIBBsIFalIHQwLUFbBED7AIMsRPEiND8XCt YuUVMyDCJkHmScXEXjHDVlnc0PVABmJUTvLbYeCvGqOAIjGXMkZAtcLVPxNVS7ZIGwRWJuVBIjCO5HJv JpEMGtQRVgWkWpELGwTEPzed5ARVIgUDCrOPI8WMVt LWVcFRGbJSgyONPpDCL0TKK9YJSlGKMcAP0BUtJbYINpJHMqOdPdCKYwZNAbmi9QLIViAJMmHqUzVXHp AYDgNLXgNPnaBXAgKYD2RstnNSTuXBKlYL4IHoNiXYXgVZC7MLXeFTQfZTDmvg4UKEZrNNAlBtAwHeBe ZEFuTYNxHMbhOIEwBAJ8DoZ8YTVtFUHyGN6DTpFjAX AiKBn0PcQcAIBqKJGmra0MKQRkJXMrKXf4OFEwTNZgUUHrUQk5npEejOSqKGc3CM7LC9YvegKaDlLCQu 2Pi178UAAiHZCqPr1EA5ceMf6yGJElIGHPPv7DKOy0FuB1ChBqUYAiMGS9XFRyHXT4ZbFmLgJpHGZlUF UwODE+NOhrDTNsQJO2QnIpYRa2AdEvBzCeVcZoALYe TXSaIUJ1FZ8lIIKODd6+GRupkCNqmOroXUDXAjA6AKQ0JDxaJULUPl2P ID Date Data Source [id number] 11/16/2019 04:57:00 PM EDT [facility] ([facility]) Name Value Range Interpretation Code Description Data Aby rce(s) Supporting Document(s) Lactic Acid Level, Lactate 1.0 mmol/L 0.4-2.0 Teodora l (applies to non-numeric results) [facility] ([facility]) Lactate [Mass/volume] in Serum or Plasma <pending> [facility] ([facility]) ID Date Data Source [id number] 11/16/2019 03:50:00 PM EDT [facility] ([facility]) Name Value Range Interpretation Code Description Data Aby rce(s) Supporting Document(s) Gastrointestinal (GI) Panel This Gastrointes <SEE NOTE> [facility] ([facility]) This Gastrointestinal PCR Panel detects the following [...] NUCLEIC ACID PCR ID Date Data Source [id number] 11/16/2019 03:50:00 PM EDT [facility] ([facility]) Name Value Range Interpretation Code Description Data Aby rce(s) Supporting Document(s) PH,Urine RFX 5.0 units 5.0-9.0 Normal (applies to non-numeric res ults) [facility] ([facility]) Appearance, Urine RFX CLOUDY Above high normal [facility] ([facility]) Color, Urine RFX LLUVIA Normal (applies to non-numeric results) [facility] ([facility]) Glucose, Urine (Ua) Auto RFX NEGATIVE mg/dL Nor mal (applies to non-numeric results) [facility] ([facility]) Protein, Urine Auto RFX 2+ mg/dL Above high normal [facility] ([facility]) Specific [place] Ur Auto RFX 1.029 1.002-1.035 Nor mal (applies to non-numeric results) [facility] ([facility]) Bilirubin, Urine Auto RFX 2+ Above high normal [facility] ([facility]) Urobilinogen, Urine Auto RFX 2.0 mg/dL 0.0-2.0 Above high normal [facility] ([facility]) Ketone, Urine Auto RFX TRACE mg/dL Above high normal [facility] ([facility]) Nitrite, Urine Auto RFX NEGATIVE Normal (applies to non- numeric results) [facility] ([facility]) Leukocyte Esterase Ur Auto RFX TRACE Above high teodora l [facility] ([facility]) Blood, Urine Blood RFX NEGATIVE Normal (applies to non-n umeric results) [facility] ([facility]) WBC, Urine Auto RFX 105 /HPF 0-3 Above high normal [facility] ([facility]) RBC, Urine Auto RFX 13 /HPF 0-3 Above high normal [facility] ([facility]) Mucus, Urine RFX LARGE Normal (applies to non-numeric results) [facility] ([facility]) Bacteria, Urine Auto RFX 3+ Above high normal [facility] ([facility]) Squam Epithelial Cell Ur Aurfx 19 /HPF 0-6 N ormal (applies to non-numeric results) [facility] ([facility]) Hyaline Cast, Urine Auto RFX 237 /LPF 0-1 Nor mal (applies to non-numeric results) [facility] ([facility]) Granular Cast, Urine Auto RFX 25 /LPF Normal (shayy lies to non-numeric results) [facility] ([facility]) ID Date Data Source [id number] 11/16/2019 12:51:00 PM EDT [facility] ([facility]) Name Value Range Interpretation Code Description Data Aby rce(s) Supporting Document(s) Platelets [#/volume] in Blood by Estimate NORMAL Normal (applies to non- numeric results) [facility] ([facility]) ID Date Data Source [id number] 11/16/2019 12:51:00 PM EDT [facility] ([facility]) Name Value Range Interpretation Code Description Data Aby rce(s) Supporting Document(s) Neutrophils 41 % 28-66 Normal (applies to non-numeric resu lts) [facility] ([facility]) Bands 6 % Normal (applies to non-numeric resul ts) [facility] ([facility]) Lymphocytes 38 % 16-44 Normal (applies to non-numeric resu lts) [facility] ([facility]) Metamyelocytes 3 % 0-0 Above high normal [facility] ([facility]) Myelocytes 6 % 0-0 Above high normal [facility] ([facility]) Monocytes 4 % 0-5 Normal (applies to non-numeric resul ts) [facility] ([facility]) Atypical Lymph 2 % 0-5 Normal (applies to non-numeric r esults) [facility] ([facility]) RBC Morphology NORMAL Normal (applies to non-numeric r esults) [facility] ([facility]) ID Date Data Source [id number] 11/16/2019 12:51:00 PM EDT [facility] ([facility]) Name Value Range Interpretation Code Description Data Aby rce(s) Supporting Document(s) White Blood Count 14.1 10 4.0-10.0 Above high normal [facility] ([facility]) Hemoglobin 12.3 g/dL 12.0-15.5 Normal (applies to non-numeric resul ts) [facility] ([facility]) Red Blood Count 3.98 10 4.00-5.40 Below low normal [facility] ([facility]) Mean Corpuscular Volume 91.0 fl 80.0-96.0 Normal ( applies to non-numeric results) [facility] ([facility]) Mean Corpuscular Hemoglobin 30.9 pg 27.0-33.0 Norm al (applies to non-numeric results) [facility] ([facility]) Hematocrit 36.2 % 36.0-47.0 Normal (applies to non-numeric resul ts) [facility] ([facility]) Red Cell Distribution Width 19.2 % 11.5-14.5 Above high normal [facility] ([facility]) Mean Corpuscular HGB Conc 34.0 g/dL 32.0-36.5 Normal (applies to non-numeric results) [facility] ([facility]) Platelet Count, Automated 231 10 150-450 Normal (applies to non-numeric results) [facility] ([facility]) Nucleated Red Blood Cell % 0.9 % 0-0 Above high normal [facility] ([facility]) ID Date Data Source [id number] 11/16/2019 12:51:00 PM EDT [facility] ([facility]) Name Value Range Interpretation Code Description Data Aby rce(s) Supporting Document(s) Amylase [Enzymatic activity/volume] in Serum or Plasma 19 U/L 25-115 Below low normal [facility] ([facility]) Lipase [Enzymatic activity/volume] in Serum or Plasma 60 U/L 73-393 Below low normal [facility] ([facility]) ID Date Data Source [id number] 11/16/2019 12:51:00 PM EDT [facility] ([facility]) Name Value Range Interpretation Code Description Data Aby rce(s) Supporting Document(s) Glucose, Fasting 101 mg/dL 70-100 Above high normal [facility] ([facility]) Blood Urea Nitrogen 19 mg/dL 7-18 Above high normal [facility] ([facility]) Creatinine For GFR 1.37 mg/dL 0.55-1.30 Above high normal [facility] ([facility]) Glomerular Filtration Rate 40.6 Normal (applies to n on-numeric results) [facility] <content>Units are mL/min/1.73 m2</content>
<content></content>
<content>Chronic Kidney Disease Staging per NKF:</content>
<content></content>
<content>Stage I & II GFR >=60 Normal to Mildly Decreased</content>
<content>Stage III GFR 30-59 Moderately Decreased</content>
<content>Stage IV GFR 15-29 Severely Decreased</content>
<content>Stage V GFR <15 Very Little GFR Left</content>
<content>ESRD GFR <15 on OBSTETRICS SCRUB NURSE</content>
<content></content> Potassium Serum 3.8 meq/L 3.5-5.1 Normal (applies to non-numeric results) [facility] ([facility]) Testing was performed on a SLIGHTLY hemo lyzed specimen. Suggest recollection of specimen for more accurate test results. Sodium Level 134 meq/L 136-145 Below low normal [facility] ([facility]) Chloride Level 102 meq/L 98-107 Normal (applies to non-numeric r esults) [facility] ([facility]) Anion Gap 8 meq/L 8-16 Normal (applies to non-numeric resul ts) [facility] Carbon Dioxide Level 24 meq/L 21-32 Normal (applies to non-num grady results) [facility] ([facility]) Calcium Level 8.8 mg/dL 8.8-10.2 Normal (applies to non-numeric re sults) [facility] ([facility]) ID Date Data Source [id number] 11/16/2019 12:51:00 PM EDT [facility] ([facility]) Name Value Range Interpretation Code Description Data Aby rce(s) Supporting Document(s) Ast/Sgot 37 U/L 7-37 Normal (applies to non-numeric resul ts) [facility] ([facility]) Alkaline Phosphatase 169 U/L 45-117 Above high normal [facility] ([facility]) Alt/SGPT 37 U/L 12-78 Normal (applies to non-numeric resul ts) [facility] ([facility]) Total Protein 7.4 GM/DL 6.4-8.2 Normal (applies to non-numeric re sults) [facility] ([facility]) Bilirubin,Total 1.0 mg/dL 0.2-1.0 Normal (applies to non-numeric results) [facility] ([facility]) Bilirubin,Direct 0.5 mg/dL 0.0-0.2 Above high normal [facility] Albumin 3.9 GM/DL 3.2-5.2 Normal (applies to non-numeric resul ts) [facility] ([facility]) Albumin/Globulin Ratio 1.11 1.00-1.93 Normal (applies to non-numeric results) [facility]) ID Date Data Source [id number] 11/16/2019 12:51:00 PM EDT [facility] ([facility]) Name Value Range Interpretation Code Description Data Aby rce(s) Supporting Document(s) MB/CK Relative Index 2.00 Normal (applies to non-num grady results) [facility] ([facility]) <content>DIAGNOSIS CRITERIA</content>
<content>MMB ng/ml Relative Index (RI)</content>
<content>NON-AMI < or = 5 N/A</content>
<content>OLEA ZONE > 5 < or = 4</content>
<content>AMI > 5 > 4</content>
<content></content> CK-MB Value Mass < 1.0 ng/mL Normal (applies to non-numeri c results) [facility] ([facility]) CPK Creatine Phosphokinase 50 U/L 26-192 Teodora l (applies to non-numeric results) [facility] ([facility]) Troponin I < 0.02 ng/mL Normal (applies to non-numeric res ults) [facility]) <content>Troponin I Reference Interval f or Siemens [place] LOCI:</content>
<content></content>
<content>99th Percentile= 0.00-0.045 ng/ml</content>
<content></content>
<content>Risk Stratification:</content>
<content><= 0.10 ng/ml Decreased Risk for Adverse Clinical</content>
<content>Events.</content>
<content>0.10-1.50 ng/ml Increased Risk for Adverse Clinical</content>
<content>Events. Evaluation of additional</content>
<content>criterion and/or repeat testing in 2-6</content>
<content>hours is suggested to rule out myocardial</content>
<content>damage.</content>
<content>>= 1.50 ng/ml Indicative of Myocardial Injury.</content>
<content></content> ID Date Data Source [id number] 11/16/2019 12:51:00 PM EDT [facility] Name Value Range Interpretation Code Description Data Aby rce(s) Supporting Document(s) aPTT in Platelet poor plasma by Coagulation assay 25.8 s 25.0-38.4 Normal (applies to non-numeric results) [facility] ([facility]) Lactate [Mass/volume] in Serum or Plasma 2.5 mmol/L 0.4-2.0 Above upper panic limits [facility] ([facility]) Y/N query for Sepsis Lactate Rule: Y ID Date Data Source [id number] 11/16/2019 12:51:00 PM EDT [facility] ([facility]) Name Value Range Interpretation Code Description Data Aby rce(s) Supporting Document(s) Inr 1.32 Normal (applies to non-numeric resul ts) [facility] THERAPUTIC HUMAN INR VALUES INDICATIONS NORMAL RANGES PROPHYLAXIS/TREATMENT OF: VENOUS THROMBOSIS 2.0-3.0 PULMONARY EMBOLISM 2.0-3.0 PREVENTION OF SYSTEMIC EMBOLISM FROM: TISSUE HEART VALVES 2.0-3.0 ACUTE MYOCARDIAL INFARCTION 2.0-3.0 VALVULAR HEART DISEASE 2.0-3.0 ATRIAL FIBRILLATION 2.0-3.0 MECHANICAL VALVES(HIGH RISK) 2.5-3.5 RECURRENT MYOCARDIAL INFARCTION 2.5-3.5 Prothrombin Time 16.1 s 11.8-14.0 Above high normal [facility] ID Date Data Source [id number] 11/04/2019 01:51:00 PM EDT [facility] Name Value Range Interpretation Code Description Data Aby rce(s) Supporting Document(s) Appearance, Urine RFX CLEAR Normal (applies to non-nu meric results) [facility] ([facility]) PH,Urine RFX 6.0 units 5.0-9.0 Normal (applies to non-numeric res ults) [facility] Specific [place] Ur Auto RFX 1.010 1.002-1.035 Nor mal (applies to non-numeric results) [facility] Color, Urine RFX YELLOW Normal (applies to non-numeric results) [facility] Protein, Urine Auto RFX NEGATIVE mg/dL Normal ( applies to non-numeric results) [facility] Glucose, Urine (Ua) Auto RFX NEGATIVE mg/dL Nor mal (applies to non-numeric results) [facility] Ketone, Urine Auto RFX NEGATIVE mg/dL Normal (applies to non-numeric results) [facility] Urobilinogen, Urine Auto RFX 0.2 mg/dL 0.0-2.0 Nor mal (applies to non-numeric results) [facility] Bilirubin, Urine Auto RFX NEGATIVE Normal (applies to no n-numeric results) [facility] Leukocyte Esterase Ur Auto RFX NEGATIVE N ormal (applies to non-numeric results) [facility] Nitrite, Urine Auto RFX NEGATIVE Normal (applies to non- numeric results) [facility] Blood, Urine Blood RFX NEGATIVE Normal (applies to non-n umeric results) [facility] Bacteria, Urine Auto RFX 1+ Above high normal [facility] ([facility]) WBC, Urine Auto RFX 5 /HPF 0-3 Above high normal [facility] ([facility]) RBC, Urine Auto RFX 2 /HPF 0-3 Normal (applies to non-nume clarissa results) [facility] ([facility]) Squam Epithelial Cell Ur Aurfx 1 /HPF 0-6 N ormal (applies to non-numeric results) [facility]) Hyaline Cast, Urine Auto RFX 0 /LPF 0-1 Normal (appl ies to non-numeric results) [facility]) Mucus, Urine RFX SMALL Normal (applies to non-numeric results) [facility] ID Date Data Source [id number] 11/04/2019 01:51:00 PM EDT [facility] [place]) Name Value Range Interpretation Code Description Data Aby rce(s) Supporting Document(s) Urine Culture FULL REPORT IN L <SEE NOTE> Norm al (applies to non-numeric results) [facility] ([facility]) FULL REPORT IN LAB NOTES (eCW and [facility] ). NO GROWTH CLINICAL SIGNIFICANCE 1 ORGANISM ID Date Data Source [id number] 11/04/2019 08:00:00 AM EDT [facility] Name Value Range Interpretation Code Description Data Aby rce(s) Supporting Document(s) White Blood Count 33.1 10 4.0-10.0 Above upper panic limits [facility] Red Blood Count 3.26 10 4.00-5.40 Below low normal [facility] ([facility]) Hematocrit 29.3 % 36.0-47.0 Below low normal [facility]) Hemoglobin 10.1 g/dL 12.0-15.5 Below low normal [facility] ( [facility]) Mean Corpuscular HGB Conc 34.5 g/dL 32.0-36.5 Normal (applies to non-numeric results) [facility] Mean Corpuscular Hemoglobin 31.0 pg 27.0-33.0 Norm al (applies to non-numeric results) [facility] Mean Corpuscular Volume 89.9 fl 80.0-96.0 Normal ( applies to non-numeric results) [facility] ([facility]) Platelet Count, Automated 416 10 150-450 Normal (applies to non-numeric results) [facility] ([facility]) Nucleated Red Blood Cell % 0.3 % 0-0 Above high normal [facility] Red Cell Distribution Width 17.1 % 11.5-14.5 Above high normal [facility] ([facility]) ID Date Data Source [id number] 11/04/2019 08:00:00 AM EDT [facility] ([facility] Name Value Range Interpretation Code Description Data Aby rce(s) Supporting Document(s) Neutrophils % 65.8 % 36.0-66.0 Normal (applies to non-numeric re sults) [facility] ([facility]) Lymph % 13.6 % 24.0-44.0 Below low normal [facility] ( [facility]) Reagan % 5.5 % 0.0-5.0 Above high normal [facility] ([facility]) Eos % 0.1 % 0.0-3.0 Normal (applies to non-numeric resul ts) [facility] ([facility]) Neutrophils # 21.8 10 1.5-8.5 Above high normal [facility] ([facility]) Immature Granulocyte % 14.9 % 0-3.0 Above high normal [facility] ([facility]) Baso % 0.1 % 0.0-1.0 Normal (applies to non-numeric resul ts) [facility] ([facility]) Eos # 0.0 10 0.0-0.5 Normal (applies to non-numeric resul ts) [facility] ([facility]) Baso # 0.0 10 0.0-0.2 Normal (applies to non-numeric resul ts) [facility] ([facility]) Lymph # 4.5 10 1.5-5.0 Normal (applies to non-numeric resul ts) [facility] ([facility]) Reagan # 1.8 10 0.0-0.8 Above high normal [facility] ([facility]) ID Date Data Source [id number] 11/04/2019 08:00:00 AM EDT [facility] ([facility] Name Value Range Interpretation Code Description Data Aby rce(s) Supporting Document(s) Magnesium [Mass/volume] in Serum or Plasma 1.7 mg/dL 1.8-2.4 Belo w low normal [facility] ([facility]) ID Date Data Source [id number] 11/04/2019 08:00:00 AM EDT [facility] ([facility]) Name Value Range Interpretation Code Description Data Aby rce(s) Supporting Document(s) Glucose, Fasting 104 mg/dL 70-100 Above high normal [facility] ([facility]) Creatinine For GFR 1.24 mg/dL 0.55-1.30 Normal (applies to non -numeric results) [facility] ([facility]) Blood Urea Nitrogen 34 mg/dL 7-18 Above high normal [facility] ([facility]) Sodium Level 139 meq/L 136-145 Normal (applies to non-numeric res ults) [facility] Potassium Serum 2.8 meq/L 3.5-5.1 Below lower panic limits [facility] Glomerular Filtration Rate 45.5 Normal (applies to n on-numeric results) [facility] ([facility]) <content>Units are mL/min/1.73 m2</content>
<content></content>
<content>Chronic Kidney Disease Staging per NKF:</content>
<content></content>
<content>Stage I & II GFR >=60 Normal to Mildly Decreased</content>
<content>Stage III GFR 30- 59 Moderately Decreased</content>
<content>Stage IV GFR 15-29 Severely Decreased</content>
<content>Stage V GFR <15 Very Little GFR Left</content>
<content>ESRD GFR <15 on OBSTETRICS SCRUB NURSE</content>
<content></content> Chloride Level 106 meq/L 98-107 Normal (applies to non-numeric r esults) [facility] ([facility]) Carbon Dioxide Level 24 meq/L 21-32 Normal (applies to non-num grady results) [facility] Anion Gap 9 meq/L 8-16 Normal (applies to non-numeric resul ts) [facility] ([facility]) Alt/SGPT 29 U/L 12-78 Normal (applies to non-numeric resul ts) [facility] ([facility]) Ast/Sgot 20 U/L 7-37 Normal (applies to non-numeric resul ts) [facility] ([facility]) Calcium Level 8.0 mg/dL 8.8-10.2 Below low normal [facility] ([facility]) Total Protein 6.4 GM/DL 6.4-8.2 Normal (applies to non-numeric re sults) [facility] ([facility]) Alkaline Phosphatase 188 U/L 45-117 Above high normal [facility] Bilirubin,Total 1.3 mg/dL 0.2-1.0 Above high normal [facility] ([facility]) Albumin/Globulin Ratio 0.73 1.00-1.93 Below low normal [facility] ([facility]) Albumin 2.7 GM/DL 3.2-5.2 Below low normal [facility] ( [facility]) ID Date Data Source [id number] 11/04/2019 08:00:00 AM EDT [facility] ([facility]) Name Value Range Interpretation Code Description Data Bay rce(s) Supporting Document(s) Cancer Ag 19-9 [Presence] in Serum or Plasma 1880.3 U/ML A aguilar high normal [facility] ([facility]) THE CA 19-9 ASSAY IS PERFORMED ON THE HalldisAUR BY CHEMILUMINESCENCE AND SHOULD NOT BE COMPARED INTERCHANGEABLY WITH OTHER METHODS. IT SHOULD NOT BE USED ALONE A SCREENING TEST OR DIAGNOSIS FOR THE PRESENCE OR ABSENCE OF MALIGNANT DISEASE. PREDICTIONS OF DISEASE RECURRENCE SHOULD NOT BE BASED SOLELY ON VALUES OBTAINED FROM SERIAL PATIENT SERUM VALUES. ID Date Data Source [id number] 11/01/2019 01:48:00 PM EDT [facility] ([facility]) Name Value Range Interpretation Code Description Data Aby rce(s) Supporting Document(s) Color, Urine RFX LLUVIA Normal (applies to non-numeric results) [facility] ([facility]) PH,Urine RFX 5.0 units 5.0-9.0 Normal (applies to non-numeric res ults) [facility] ([facility]) Appearance, Urine RFX CLOUDY Above high normal [facility] ([facility]) Glucose, Urine (Ua) Auto RFX NEGATIVE mg/dL Nor mal (applies to non-numeric results) [facility] Specific [place] Ur Auto RFX 1.026 1.002-1.035 Nor mal (applies to non-numeric results) [facility] ([facility]) Protein, Urine Auto RFX 2+ mg/dL Above high normal [facility] ([facility]) Urobilinogen, Urine Auto RFX 0.2 mg/dL 0.0-2.0 Nor mal (applies to non-numeric results) [facility] Ketone, Urine Auto RFX NEGATIVE mg/dL Normal (applies to non-numeric results) [facility] Bilirubin, Urine Auto RFX 1+ Above high normal [facility] ([facility]) Leukocyte Esterase Ur Auto RFX 1+ Above high teodora l [facility] ([facility]) Blood, Urine Blood RFX 1+ Above high normal [facility] Nitrite, Urine Auto RFX NEGATIVE Normal (applies to non- numeric results) [facility] ([facility]) RBC, Urine Auto RFX 10 /HPF 0-3 Above high normal [facility] ([facility]) Bacteria, Urine Auto RFX 1+ Above high normal [facility] ([facility]) WBC, Urine Auto RFX 86 /HPF 0-3 Above high normal [facility] ([facility]) Transitional Epithelial AU RFX 1 /HPF Normal (ap plies to non-numeric results) [facility] ([facility]) Laboratory test finding (navigational concept) 1 /HPF Normal (applies to non- numeric results) [facility] ([facility]) Squam Epithelial Cell Ur Aurfx 10 /HPF 0-6 N ormal (applies to non-numeric results) [facility] ([facility]) Granular Cast, Urine Auto RFX 5 /LPF Normal (shayy lies to non-numeric results) [facility] ([facility]) Hyaline Cast, Urine Auto RFX 7 /LPF 0-1 Normal (appl ies to non-numeric results) [facility] Mucus, Urine RFX SMALL Normal (applies to non-numeric results) [facility] ([facility]) Amorphous Sediment RFX SMALL Above high normal [facility] ([facility]) ID Date Data Source [id number] 11/01/2019 01:48:00 PM EDT [facility] ([facility]) Name Value Range Interpretation Code Description Data Aby rce(s) Supporting Document(s) Reflex Urine Culture FULL REPORT IN L <SEE NOTE> Normal (applies to non- numeric results) [facility] ([facility]) <content>FULL REPORT IN LAB NOTES (eCW a [...] FOR ESBL</content>
<content></content> ID Date Data Source [id number] 11/01/2019 12:41:00 PM EDT [facility] ([facility]) Name Value Range Interpretation Code Description Data Aby rce(s) Supporting Document(s) Laboratory test finding (navigational concept) 36.0 % 3 8.0-51.0 Below low normal [facility] ([facility]) Laboratory test finding (navigational concept) 3.3 meq/L 3 .5-5.1 Below low normal [facility] ([facility]) Laboratory test finding (navigational concept) 137 mg/dL 7 0-105 Above high normal [facility] ([facility]) Laboratory test finding (navigational concept) 134 meq/L 1 36-145 Below low normal [facility] ([facility]) Laboratory test finding (navigational concept) 4.7 mg/dL 4 .5-5.3 Normal (applies to non-numeric results) [facility] ([facility]) Laboratory test finding (navigational concept) 97 meq/L 98-109 Below low normal [facility] Laboratory test finding (navigational concept) 25.0 MM/L 2 3.0-27.0 Normal (applies to non-numeric results) [facility] ([facility]) Laboratory test finding (navigational concept) 1.3 mg/dL 0 .6-1.3 Normal (applies to non-numeric results) [facility] ([facility]) Laboratory test finding (navigational concept) 25 mg/dL 8 -26 Normal (applies to non-numeric results) [facility] ([facility]) ID Date Data Source [id number] 11/01/2019 12:40:00 PM EDT [facility] ([facility]) Name Value Range Interpretation Code Description Data Aby rce(s) Supporting Document(s) White Blood Count 16.9 10 4.0-10.0 Above high normal [facility] Red Blood Count 3.93 10 4.00-5.40 Below low normal [facility] ([facility]) Hematocrit 35.2 % 36.0-47.0 Below low normal [facility] Hemoglobin 12.0 g/dL 12.0-15.5 Normal (applies to non-numeric resul ts) [facility] Mean Corpuscular Volume 89.6 fl 80.0-96.0 Normal ( applies to non-numeric results) [facility] ([facility]) Mean Corpuscular Hemoglobin 30.5 pg 27.0-33.0 Norm al (applies to non-numeric results) [facility] Mean Corpuscular HGB Conc 34.1 g/dL 32.0-36.5 Normal (applies to non-numeric results) [facility] ([facility]) Nucleated Red Blood Cell % 0.3 % 0-0 Above high normal [facility] ([facility]) Red Cell Distribution Width 16.6 % 11.5-14.5 Above high normal [facility] ([facility]) Platelet Count, Automated 491 10 150-450 Above high normal [facility] ([facility]) ID Date Data Source [id number] 11/01/2019 12:40:00 PM EDT [facility] ([facility]) Name Value Range Interpretation Code Description Data Aby rce(s) Supporting Document(s) Prothrombin Time 20.3 s 11.8-14.0 Above high normal [facility] Inr 1.76 Normal (applies to non-numeric resul ts) [facility] ([facility]) THERAPUTIC HUMAN INR VALUES INDICATIONS NORMAL RANGES PROPHYLAXIS/TREATMENT OF: VENOUS THROMBOSIS 2.0-3.0 PULMONARY EMBOLISM 2.0-3.0 PREVENTION OF SYSTEMIC EMBOLISM FROM: TISSUE HEART VALVES 2.0-3.0 ACUTE MYOCARDIAL INFARCTION 2.0-3.0 VALVULAR HEART DISEASE 2.0-3.0 ATRIAL FIBRILLATION 2.0-3.0 MECHANICAL VALVES(HIGH RISK) 2.5-3.5 RECURRENT MYOCARDIAL INFARCTION 2.5-3.5 ID Date Data Source [id number] 11/01/2019 12:40:00 PM EDT [facility] ([facility]) Name Value Range Interpretation Code Description Data Aby rce(s) Supporting Document(s) aPTT in Platelet poor plasma by Coagulation assay 32.0 s 25.0-38.4 Normal (applies to non-numeric results) [facility] ([facility]) ID Date Data Source [id number] 11/01/2019 12:40:00 PM EDT [facility] ([facility]) Name Value Range Interpretation Code Description Data Aby rce(s) Supporting Document(s) Lymphocytes 33 % 16-44 Normal (applies to non-numeric resu lts) [facility] ([facility]) Neutrophils 54 % 28-66 Normal (applies to non-numeric resu lts) [facility] ([facility]) Bands 11 % Normal (applies to non-numeric resul ts) [facility] ([facility]) Monocytes 1 % 0-5 Normal (applies to non-numeric resul ts) [facility] ([facility]) Atypical Lymph 1 % 0-5 Normal (applies to non-numeric r esults) [facility] ([facility]) ID Date Data Source [id number] 11/01/2019 12:40:00 PM EDT [facility] ([facility]) Name Value Range Interpretation Code Description Data Aby rce(s) Supporting Document(s) Platelets [#/volume] in Blood by Estimate INCREASED Normal (applies to non- numeric results) [facility] ([facility]) ID Date Data Source [id number] 11/01/2019 12:40:00 PM EDT [facility] ([facility]) Name Value Range Interpretation Code Description Data Aby rce(s) Supporting Document(s) Ast/Sgot 27 U/L 7-37 Normal (applies to non-numeric resul ts) [facility] ([facility]) Alt/SGPT 40 U/L 12-78 Normal (applies to non-numeric resul ts) [facility] ([facility]) Bilirubin,Total 1.5 mg/dL 0.2-1.0 Above high normal [facility] ([facility]) Alkaline Phosphatase 216 U/L 45-117 Above high normal [facility] ([facility]) Bilirubin,Direct 1.4 mg/dL 0.0-0.2 Above high normal [facility] ([facility]) Total Protein 6.9 GM/DL 6.4-8.2 Normal (applies to non-numeric re sults) [facility] ([facility]) Albumin/Globulin Ratio 0.77 1.00-1.93 Below low normal [facility] Albumin 3.0 GM/DL 3.2-5.2 Below low normal [facility] ( [facility]) ID Date Data Source [id number] 11/01/2019 12:40:00 PM EDT [facility] ([facility]) Name Value Range Interpretation Code Description Data Aby rce(s) Supporting Document(s) Glucose, Fasting 130 mg/dL 70-100 Above high normal [facility] ([facility]) Blood Urea Nitrogen 26 mg/dL 7-18 Above high normal [facility] ([facility]) Creatinine For GFR 1.33 mg/dL 0.55-1.30 Above high normal [facility] ([facility]) Glomerular Filtration Rate 42.0 Normal (applies to n on-numeric results) [facility] <content>Units are mL/min/1.73 m2</content>
<content></content>
<content>Chronic Kidney Disease Staging per NKF:</content>
<content></content>
<content>Stage I & II GFR >=60 Normal to Mildly Decreased</content>
<content>Stage III GFR 30- 59 Moderately Decreased</content>
<content>Stage IV GFR 15-29 Severely Decreased</content>
<content>Stage V GFR <15 Very Little GFR Left</content>
<content>ESRD GFR <15 on OBSTETRICS SCRUB NURSE</content>
<content></content> Chloride Level 98 meq/L 98-107 Normal (applies to non-numeric r esults) [facility] ([facility]) Sodium Level 135 meq/L 136-145 Below low normal [facility] ([facility]) Potassium Serum 3.5 meq/L 3.5-5.1 Normal (applies to non-numeric results) [facility] ([facility]) Calcium Level 9.3 mg/dL 8.8-10.2 Normal (applies to non-numeric re sults) [facility] ([facility]) Carbon Dioxide Level 25 meq/L 21-32 Normal (applies to non-num grady results) [facility] ([facility]) Anion Gap 12 meq/L 8-16 Normal (applies to non-numeric resul ts) [facility] ([facility]) ID Date Data Source [id number] 11/01/2019 12:40:00 PM EDT [facility] ([facility]) Name Value Range Interpretation Code Description Data Aby rce(s) Supporting Document(s) Amylase [Enzymatic activity/volume] in Serum or Plasma 21 U/L 25-115 Below low normal [facility] ([facility]) Lipase [Enzymatic activity/volume] in Serum or Plasma 108 U/L 73-393 Normal (applies to non-numeric results) [facility] ([facility]) ID Date Data Source [id number] 10/21/2019 09:19:00 AM EDT [facility] Name Value Range Interpretation Code Description Data Aby rce(s) Supporting Document(s) Cancer Ag 19-9 [Presence] in Serum or Plasma 2795.7 U/ML A aguilar high normal [facility] ([facility]) THE CA 19-9 ASSAY IS PERFORMED ON THE HalldisAUR BY CHEMILUMINESCENCE AND SHOULD NOT BE COMPARED INTERCHANGEABLY WITH OTHER METHODS. IT SHOULD NOT BE USED ALONE A SCREENING TEST OR DIAGNOSIS FOR THE PRESENCE OR ABSENCE OF MALIGNANT DISEASE. PREDICTIONS OF DISEASE RECURRENCE SHOULD NOT BE BASED SOLELY ON VALUES OBTAINED FROM SERIAL PATIENT SERUM VALUES. ID Date Data Source [id number] 10/21/2019 08:04:00 AM EDT [facility] ([facility]) Name Value Range Interpretation Code Description Data Aby rce(s) Supporting Document(s) White Blood Count 15.7 10 4.0-10.0 Above high normal [facility] ([facility]) Red Blood Count 3.53 10 4.00-5.40 Below low normal [facility] ([facility]) Hemoglobin 10.7 g/dL 12.0-15.5 Below low normal [facility] ( [facility]) Hematocrit 32.5 % 36.0-47.0 Below low normal [facility] ( [facility]) Mean Corpuscular Volume 92.1 fl 80.0-96.0 Normal ( applies to non-numeric results) [facility] ([facility]) Mean Corpuscular Hemoglobin 30.3 pg 27.0-33.0 Norm al (applies to non-numeric results) [facility] ([facility]) Mean Corpuscular HGB Conc 32.9 g/dL 32.0-36.5 Normal (applies to non-numeric results) [facility] ([facility]) Platelet Count, Automated 236 10 150-450 Normal (applies to non-numeric results) [facility] Red Cell Distribution Width 17.1 % 11.5-14.5 Above high normal [facility] Nucleated Red Blood Cell % 0.3 % 0-0 Above high normal [facility] ([facility]) ID Date Data Source [id number] 10/21/2019 08:04:00 AM EDT [facility] ([facility]) Name Value Range Interpretation Code Description Data Aby rce(s) Supporting Document(s) Neutrophils % 56.6 % 36.0-66.0 Normal (applies to non-numeric re sults) [facility] ([facility]) Eos % 0.5 % 0.0-3.0 Normal (applies to non-numeric resul ts) [facility] ([facility]) Lymph % 22.3 % 24.0-44.0 Below low normal [facility] ( [facility]) Reagan % 9.7 % 0.0-5.0 Above high normal [facility] ([facility]) Baso % 0.6 % 0.0-1.0 Normal (applies to non-numeric resul ts) [facility] ([facility]) Immature Granulocyte % 10.3 % 0-3.0 Above high normal [facility] ([facility] [facility]) Neutrophils # 8.9 10 1.5-8.5 Above high normal MEDE NT ([facility]) Reagan # 1.5 10 0.0-0.8 Above high normal [facility] ([facility]) Eos # 0.1 10 0.0-0.5 Normal (applies to non-numeric resul ts) [facility] ([facility]) Lymph # 3.5 10 1.5-5.0 Normal (applies to non-numeric resul ts) [facility] ([facility]) Baso # 0.1 10 0.0-0.2 Normal (applies to non-numeric resul ts) [facility] ([facility]) ID Date Data Source [id number] 10/21/2019 08:04:00 AM EDT [facility] ([facility]) Name Value Range Interpretation Code Description Data Aby rce(s) Supporting Document(s) Glucose, Fasting 111 mg/dL 70-100 Above high normal M EDENT ([facility]) Blood Urea Nitrogen 12 mg/dL 7-18 Normal (applies to non-nume clarissa results) [facility] ([facility]) Creatinine For GFR 0.61 mg/dL 0.55-1.30 Normal (applies to non -numeric results) [facility] ([facility]) Glomerular Filtration Rate > 60.0 Normal (applies to n on-numeric results) [facility] ([facility]) <content>Units are mL/min/1.73 m2</content>
<content></content>
<content>Chronic Kidney Disease Staging per NKF:</content>
<content></content>
<content>Stage I & II GFR >=60 Normal to Mildly Decreased</content>
<content>Stage III GFR 30- 59 Moderately Decreased</content>
<content>Stage IV GFR 15-29 Severely Decreased</content>
<content>Stage V GFR <15 Very Little GFR Left</content>
<content>ESRD GFR <15 on OBSTETRICS SCRUB NURSE</content>
<content></content> Chloride Level 110 meq/L 98-107 Above high normal MED ENT ([facility]) Potassium Serum 2.9 meq/L 3.5-5.1 Below lower panic limits [facility] ([facility]) Sodium Level 144 meq/L 136-145 Normal (applies to non-numeric res ults) [facility] Calcium Level 8.2 mg/dL 8.8-10.2 Below low normal MEDEN T ([facility]) Anion Gap 7 meq/L 8-16 Below low normal [facility] Carbon Dioxide Level 27 meq/L 21-32 Normal (applies to non-num grady results) [facility] Alt/SGPT 100 U/L 12-78 Above high normal [facility] ([facility]) Ast/Sgot 43 U/L 7-37 Above high normal [facility] Alkaline Phosphatase 460 U/L 45-117 Above high normal [facility] Total Protein 6.2 GM/DL 6.4-8.2 Below low normal [facility]EN T ([facility]) Bilirubin,Total 3.5 mg/dL 0.2-1.0 Above high normal ME DENT ([facility]) Albumin/Globulin Ratio 1.00 1.00-1.93 Normal (applies to non-numeric results) [facility] ([facility]) Albumin 3.1 GM/DL 3.2-5.2 Below low normal [facility] ( [facility]) ID Date Data Source [id number] 10/13/2019 01:18:00 PM EST [facility] ([facility]) Name Value Range Interpretation Code Description Data Aby rce(s) Supporting Document(s) Lactate [Mass/volume] in Serum or Plasma 0.7 mmol/L 0.4-2.0 Normal (applies to non-numeric results) [facility] ([facility]) Y/N query for Sepsis Lactate Rule: Y ID Date Data Source [id number] 10/13/2019 12:28:00 PM EST [facility] ([facility]) Name Value Range Interpretation Code Description Data Aby rce(s) Supporting Document(s) Ast/Sgot 210 U/L 7-37 Above high normal [facility] ([facility]) Alt/SGPT 264 U/L 12-78 Above high normal [facility] ([facility]) Bilirubin,Total 20.2 mg/dL 0.2-1.0 Above upper panic limits [facility] ([facility]) Bilirubin,Direct 13.1 mg/dL 0.0-0.2 Above high normal M EDENT ([facility]) Alkaline Phosphatase 986 U/L 45-117 Above high normal [facility] ([facility]) Total Protein 6.3 GM/DL 6.4-8.2 Below low normal [facility] T ([facility]) Albumin 3.2 GM/DL 3.2-5.2 Normal (applies to non-numeric resul ts) [facility] ([facility]) Albumin/Globulin Ratio 1.03 1.00-1.93 Normal (applies to non-numeric results) [facility] ([facility]) ID Date Data Source [id number] 10/13/2019 12:28:00 PM EST [facility] ([facility]) Name Value Range Interpretation Code Description Data Aby rce(s) Supporting Document(s) Glucose, Fasting 111 mg/dL 70-100 Above high normal [facility]ENT ([facility]) Blood Urea Nitrogen 26 mg/dL 7-18 Above high normal [facility] ([facility]) Glomerular Filtration Rate > 60.0 Normal (applies to n on-numeric results) [facility] ([facility]) <content>Units are mL/min/1.73 m2</content>
<content></content>
<content>Chronic Kidney Disease Staging per NKF:</content>
<content></content>
<content>Stage I & II GFR >=60 Normal to Mildly Decreased</content>
<content>Stage III GFR 30- 59 Moderately Decreased</content>
<content>Stage IV GFR 15-29 Severely Decreased</content>
<content>Stage V GFR <15 Very Little GFR Left</content>
<content>ESRD GFR <15 on OBSTETRICS SCRUB NURSE</content>
<content></content> Creatinine For GFR 0.78 mg/dL 0.55-1.30 Normal (applies to non -numeric results) [facility] Sodium Level 138 meq/L 136-145 Normal (applies to non-numeric res ults) [facility] ([facility]) Potassium Serum 4.7 meq/L 3.5-5.1 Normal (applies to non-numeric results) [facility] ([facility]) Testing was performed on an icteric spec imen. Chloride Level 104 meq/L 98-107 Normal (applies to non-numeric r esults) [facility] ([facility]) Calcium Level 9.1 mg/dL 8.8-10.2 Normal (applies to non-numeric re sults) [facility] Anion Gap 9 meq/L 8-16 Normal (applies to non-numeric resul ts) [facility] Carbon Dioxide Level 25 meq/L 21-32 Normal (applies to non-num grady results) [facility] ([facility]) ID Date Data Source [id number] 10/13/2019 12:28:00 PM EST [facility] ([facility]) Name Value Range Interpretation Code Description Data Aby rce(s) Supporting Document(s) Lipase [Enzymatic activity/volume] in Serum or Plasma 143 U/L 73-393 Normal (applies to non-numeric results) [facility] ID Date Data Source [id number] 10/13/2019 12:28:00 PM EST [facility] ([facility]) Name Value Range Interpretation Code Description Data Aby rce(s) Supporting Document(s) CPK Creatine Phosphokinase 114 U/L 26-192 Teodora l (applies to non-numeric results) [facility] ([facility]) CK-MB Value Mass < 1.0 ng/mL Normal (applies to non-numeri c results) [facility] ([facility]) MB/CK Relative Index 0.88 Normal (applies to non-num grady results) [facility] ([facility]) <content>DIAGNOSIS CRITERIA</content>
<content>MMB ng/ml Relative Index (RI)</content>
<content>NON-AMI < or = 5 N/A</content>
<content>OLEA ZONE > 5 < or = 4</content>
<content>AMI > 5 > 4</content>
<content></content> Troponin I < 0.02 ng/mL Normal (applies to non-numeric res ults) [facility] ([facility]) <content>Troponin I Reference Interval f or Siemens [place] LOCI:</content>
<content></content>
<content>99th Percentile= 0.00-0.045 ng/ml</content>
<content></content>
<content>Risk Stratification:</content>
<content><= 0.10 ng/ml Decreased Risk for Adverse Clinical</content>
<content>Events.</content>
<content>0.10-1.50 ng/ml Increased Risk for Adverse Clinical</content>
<content>Events. Evaluation of additional</content>
<content>criterion and/or repeat testing in 2-6</content>
<content>hours is suggested to rule out myocardial</content>
<content>damage.</content>
<content>>= 1.50 ng/ml Indicative of Myocardial Injury.</content>
<content></content> ID Date Data Source [id number] 10/13/2019 12:28:00 PM EST [facility] ([facility]) Name Value Range Interpretation Code Description Data Aby rce(s) Supporting Document(s) Urate [Mass/volume] in Serum or Plasma 3.0 mg/dL 2.6-6.0 Normal (applies to non- numeric results) [facility] ([facility]) Phosphate [Moles/volume] in Serum or Plasma 3.3 mg/dL 2.5- 4.9 Normal (applies to non-numeric results) [facility] ([facility]) ID Date Data Source [id number] 10/13/2019 12:26:00 PM EST [facility] ([facility]) Name Value Range Interpretation Code Description Data Aby rce(s) Supporting Document(s) White Blood Count 12.8 10 4.0-10.0 Above high normal [facility] ([facility]) Hemoglobin 11.6 g/dL 12.0-15.5 Below low normal [facility] ( [facility]) Red Blood Count 3.86 10 4.00-5.40 Below low normal [facility] ([facility]) Hematocrit 34.7 % 36.0-47.0 Below low normal [facility] ( [facility]) Mean Corpuscular HGB Conc 33.4 g/dL 32.0-36.5 Normal (applies to non-numeric results) [facility] ([facility]) Mean Corpuscular Volume 89.9 fl 80.0-96.0 Normal ( applies to non-numeric results) [facility] ([facility]) Mean Corpuscular Hemoglobin 30.1 pg 27.0-33.0 Norm al (applies to non-numeric results) [facility] ([facility]) Nucleated Red Blood Cell % 0.0 % 0-0 Normal (applies to n on-numeric results) [facility] ([facility]) Platelet Count, Automated 194 10 150-450 Normal (applies to non-numeric results) [facility] ([facility]) Red Cell Distribution Width 16.9 % 11.5-14.5 Above high normal [facility] ([facility]) ID Date Data Source [id number] 10/13/2019 12:26:00 PM EST [facility] ([facility]) Name Value Range Interpretation Code Description Data Aby rce(s) Supporting Document(s) Bands 2 % Normal (applies to non-numeric resul ts) [facility] ([facility]) Neutrophils 82 % 28-66 Above high normal [facility] ([facility]) Lymphocytes 15 % 16-44 Below low normal [facility] ([facility]) Myelocytes 1 % 0-0 Above high normal [facility] ([facility]) Anisocytosis 1+ Normal (applies to non-numeric res ults) [facility] ([facility]) Laboratory test finding (navigational concept) 1+ Normal (applies to non- numeric results) [facility] ([facility]) Toxic Granulation 1+ Normal (applies to non-numeri c results) [facility] ([facility]) ID Date Data Source [id number] 10/13/2019 12:26:00 PM EST [facility] ([facility]) Name Value Range Interpretation Code Description Data Aby rce(s) Supporting Document(s) Platelets [#/volume] in Blood by Estimate NORMAL Normal (applies to non- numeric results) [facility] ID Date Data Source [id number] 10/07/2019 08:04:00 AM EST [facility] ([facility]) Name Value Range Interpretation Code Description Data Aby rce(s) Supporting Document(s) Magnesium [Mass/volume] in Serum or Plasma 2.0 mg/dL 1.8-2 .4 Normal (applies to non-numeric results) [facility] ([facility]) ID Date Data Source [id number] 10/07/2019 08:04:00 AM EST [facility] ([facility]) Name Value Range Interpretation Code Description Data Aby rce(s) Supporting Document(s) Glucose, Fasting 136 mg/dL 70-100 Above high normal [facility] ([facility]) Creatinine For GFR 0.55 mg/dL 0.55-1.30 Normal (applies to non -numeric results) [facility] ([facility]) Blood Urea Nitrogen 13 mg/dL 7-18 Normal (applies to non-nume clarissa results) [facility] ([facility]) Glomerular Filtration Rate > 60.0 Normal (applies to n on-numeric results) [facility] ([facility]) <content>Units are mL/min/1.73 m2</content>
<content></content>
<content>Chronic Kidney Disease Staging per NKF:</content>
<content></content>
<content>Stage I & II GFR >=60 Normal to Mildly Decreased</content>
<content>Stage III GFR 30- 59 Moderately Decreased</content>
<content>Stage IV GFR 15-29 Severely Decreased</content>
<content>Stage V GFR <15 Very Little GFR Left</content>
<content>ESRD GFR <15 on OBSTETRICS SCRUB NURSE</content>
<content></content> Potassium Serum 4.0 meq/L 3.5-5.1 Normal (applies to non-numeric results) [facility] ([facility]) Sodium Level 140 meq/L 136-145 Normal (applies to non-numeric res ults) [facility] ([facility]) Carbon Dioxide Level 25 meq/L 21-32 Normal (applies to non-num grady results) [facility] ([facility]) Anion Gap 6 meq/L 8-16 Below low normal [facility] Chloride Level 109 meq/L 98-107 Above high normal [facility] ([facility]) Calcium Level 8.9 mg/dL 8.8-10.2 Normal (applies to non-numeric re sults) [facility] ([facility]) Alt/SGPT 261 U/L 12-78 Above high normal [facility] Ast/Sgot 178 U/L 7-37 Above high normal [facility]) Bilirubin,Total 10.4 mg/dL 0.2-1.0 Above high normal [facility] ([facility]) Total Protein 6.5 GM/DL 6.4-8.2 Normal (applies to non-numeric re sults) [facility] ([facility]) Alkaline Phosphatase 921 U/L 45-117 Above high normal [facility] ([facility]) Albumin 3.2 GM/DL 3.2-5.2 Normal (applies to non-numeric resul ts) [facility] ([facility]) Albumin/Globulin Ratio 0.97 1.00-1.93 Below low normal [facility] ([facility]) ID Date Data Source [id number] 10/07/2019 08:04:00 AM EST [facility] Name Value Range Interpretation Code Description Data Aby rce(s) Supporting Document(s) Neutrophils % 67.7 % 36.0-66.0 Above high normal [facility]E NT ([facility]) Reagan % 6.0 % 0.0-5.0 Above high normal [facility] ([facility]) Eos % 1.3 % 0.0-3.0 Normal (applies to non-numeric resul ts) [facility] ([facility]) Lymph % 24.2 % 24.0-44.0 Normal (applies to non-numeric resul ts) [facility] ([facility]) Immature Granulocyte % 0.4 % 0-3.0 Normal (applies to non-n umeric results) [facility] ([facility]) Neutrophils # 4.6 10 1.5-8.5 Normal (applies to non-numeric re sults) [facility] ([facility]) Baso % 0.4 % 0.0-1.0 Normal (applies to non-numeric resul ts) [facility] ([facility]) Eos # 0.1 10 0.0-0.5 Normal (applies to non-numeric resul ts) [facility] ([facility]) Lymph # 1.7 10 1.5-5.0 Normal (applies to non-numeric resul ts) [facility] ([facility]) Reagan # 0.4 10 0.0-0.8 Normal (applies to non-numeric resul ts) [facility] ([facility]) Baso # 0.0 10 0.0-0.2 Normal (applies to non-numeric resul ts) [facility] ([facility]) ID Date Data Source [id number] 10/07/2019 08:04:00 AM EST [facility] ([facility]) Name Value Range Interpretation Code Description Data Aby rce(s) Supporting Document(s) White Blood Count 6.8 10 4.0-10.0 Normal (applies to non-numeri c results) [facility] ([facility]) Red Blood Count 3.62 10 4.00-5.40 Below low normal [facility] ([facility]) Mean Corpuscular Volume 91.2 fl 80.0-96.0 Normal ( applies to non-numeric results) [facility] ([facility]) Hematocrit 33.0 % 36.0-47.0 Below low normal [facility] ( [facility]) Hemoglobin 11.0 g/dL 12.0-15.5 Below low normal [facility] ( [facility]) Red Cell Distribution Width 18.1 % 11.5-14.5 Above high normal [facility] ([facility]) Mean Corpuscular Hemoglobin 30.4 pg 27.0-33.0 Norm al (applies to non-numeric results) [facility] ([facility]) Mean Corpuscular HGB Conc 33.3 g/dL 32.0-36.5 Normal (applies to non-numeric results) [facility] ([facility]) Platelet Count, Automated 286 10 150-450 Normal (applies to non-numeric results) [facility] ([facility]) Nucleated Red Blood Cell % 0.0 % 0-0 Normal (applies to n on-numeric results) [facility] ([facility]) ID Date Data Source [id number] 10/04/2019 03:39:06 PM EST [facility] Name Value Range Interpretation Code Description Data Aby rce(s) Supporting Document(s) Progress Note [facility] [id number]/PJZpzYKUeg0GzUEfrLHk2QMugHOTfO0OiEHK5sH9jRSQ4ACuXJiQmXqCtSbKn [facility] [file] ICAgICAgICAgICAgICAgICAgICAgICAgICAgICAgICAgICAgICAgICAgICAgICAgICAgICAgICAgICAg ICAgICAgICAgICAgICAgICAgICAgICAgICAgICAgIC IpFV1WUMMuAMRkLVBbCLLfXIMzRJSvQPHiCIBeESGwMIXhBSIkUIVpIOUsGBJrWQVoMJGbQOBfNZSmIJ LiZQBoGMFyJMYcDXBtMAFdXWOnOLDzVZKzIFClTUZgYLHsCJZkFZBtOHWnHA3KNUOaOMXhLJYpPENcGS AgICAgICAgICAgICAgICAgICAgICAgICAgICAgICAg RRAsXEEfIAXbDMNqKAObLFQeFLVkLTPlTCXbZEOmETKhHSVqYHJgRBStIUWzHVGmLNQzAEFuSL4LWJHo ICAgICAgICAgICAgICAgICAgICAgICAgICAgICAgICAgICAgICAgICAgICAgICAgICAgICAgICAgICAg ICAgICAgICAgICAgICAgICAgICAgICAgICAgICAgIC ZpNTQzOI1UEOIrUDXpEKXsSTQtZAXqVROtVZMmUJQjMJEtCWQeIAWxTBYaVKOpHWHvQBLsJMWnWHRxAR FnQOSbLJJsZQGkJJFgCJRjZVByQXLzQPXlVJMjJEGoQEZfHCXeLTXqWKUyYEFpUB9TUORyDQKxDKDrUG AgICAgICAgICAgICAgICAgICAgICAgICAgICAgICAg FLWeKADxICTzTIXiYCWtIGYgGJScTYCfJGVtEJEgXZUsRJJuOABxFGTmEXRzHYTsUESlISZqHLJwNO2O ICAgICAgICAgICAgICAgICAgICAgICAgICAgICAgICAgICAgICAgICAgICAgICAgICAgICAgICAgICAg ICAgICAgICAgICAgICAgICAgICAgICAgICAgICAgIC EjXIOmNYFhEU5QOGByCURvRCKzOBBfICDdROKzZNJhRYMkFWXsSOHgEUYyCEYhTYLoNJOiLWZaAPHsSY UiTIJrLZKhOZJtEXWbEYHiGXDvNHNlPXDoPSEzVTKiNETgAOVyDEIsJELqABEyJMMtHO5YYFChDCNjEU AgICAgICAgICAgICAgICAgICAgICAgICAgICAgICAg ICAgICAgICAgICAgICAgICAgICAgICAgICAgICAgICAgICAgICAgICAgICAgICAgICAgICAgICAgICAg SV6JZHEgFVCuIZSoLKEvTWReVTTiISEiFHWhYTCbHPVqFOVjIWAgFKDxVERoXOVqCLCkSOBdSAQvYLRr ICAgICAgICAgICAgICAgICAgICAgICAgICAgICAgIC HqERSkBJKrSIGnKF8KZT90bMKrt2O2TNOfTT6cbbm/Zm9AOGvnowMqsNMiHK5NRpWnDF2lmo0HQbOhJK 6xfu0FCIzHQfBwD1Q4mYMdUXPbUBLTEbJvE03tPMgwQq43LMkaVSSkYwGaOJg6Bm6CYmShO6zlJJBkCy H1QJDqWwEsHXeyMR2Lt1KiyMJdKPe+Je7FVA4ux0Lr RUpoOAZzGF4suz2AKHrIZfWcL6KftlU6PEMrSYTzCz0XBPHeFEPfoHEbDOMuWCCGLsHfL6UmyJ29UJHO Cj4+EAhhglYaZfrNRhAsENOte5GcSEh8BN0WGJBsNVu1fZArJLWhN0Urb9RfSb90UPTzSxpwKhWcfLdq F4K6gXkiKY3cNGFxXv4uEE8aIITkJBE2RvHcRLSZKL 5RNREdFURvtFZnBBQzTKCFPK9RCQmsRFJ5BHTdjzFlpYCtXJcvUZ9BDFZjmoMgTAgfDEJIQMw+Pg0KZW 6qf0IqVMmnBRXmBH6uab5BIBlNAuCrE5D2pNOeR8Y2PRsfLy4OPGEhBKMoOMqmHZPFHHjwUR4AYJ3hyj F8QB7BjSNeYQZyVQPglXRbQFu9Y52wkWTsGKwaVH2M ICA+Mariaa+Yg3SWDFbQBCoMFUaIcUyVXEBRzVtS5HaV1ITw1HqM7VtBW10yQqsgdOxDKzsCP5RSZ8cTTKa JAGQFC9HhJWpjB5btxAjODVeKQRJVxOvE67vfRVsXVStGIT0UWIeJf7GSSQfM0TxdjWkqWjmuaSiASCy JMNXLX8HBXefyaEgnRAvbBviEP43hIefFB0LJb7QHa CtPD1jhy5IaPYuAc5THZTrYz1CDBLgZWLmRIUkBIT2BBAtTeTiFSddJXBnKLNnKRU8DTOvWVCrWR3PLa ChYNEpNQblPzDkWZSoZCPhax9RCEOlTWTgEOd4AnCyCGCjDIQqNTzhZUHcFPOoFIF2AUAkWCNsEM2LFz JsKYJuTBNoMKloAAJbQPPckw9RPIVzCEGsWoIfGJUp OOWpGAIjFPubZVOmOJDrKKdlAPSuKDOaYP8XFuIjFZGnOJClIsCoUHPbPPAtab4KBFLrXGIxTkZ1DhMl JPZnRRHyZUtcBEEtFUH4VOU7CTGmEZWhDP1ORzRmEPFqSUD3GXWoIPBnNRKqhm0FCWRjHMSdDUg4KxHd EHTeKMMqRUwyLOLrWBL1AwFfWFPhZLZkDD1QZfIkZT PuTEV4IJusXQNkUBQgjb1LVTHzQASvPjw5DqXaJOHlDDIxYRmpQRByKAU5FFO1ZKTeDCIzCX5KTtEwYZ AvOVxyCFFgEWNtFSIskc4AGCMuMTMzKtI2KvToRCYbMOTiKFwiUGKcVTU6OFezUSZcZTTrUY5CFaEfXN OtRJmvAsNyARTdADExsw9PVGBpPFNwWVTvEnAhZAGc ZNKjMFl0qnJvmROaHYo8VT3IL1WvryHkKoMXPe6Ki543MPWhUOMsTg7RZ8bjEu0wOKLvQENQFt4LEQh9 EpXrLdO9KOZ1SlCpHpn1SsGkCudvEMJwDzGpXwy0TFS+FPckDaFnRLAiWSE0DBVrSOBoUsR7OJW9PZXo FJOgXvs2YP3pYMAUKn0+QTtljBDyvRbrNKVTEqE9TGVtXJyuNDWJKv7I ID Date Data Source [id number] 09/29/2019 11:32:00 AM EST [facility] ([facility]) Name Value Range Interpretation Code Description Data Aby rce(s) Supporting Document(s) White Blood Count 6.9 10 4.0-10.0 Normal (applies to non-numeri c results) [facility] ([facility]) Hemoglobin 11.8 g/dL 12.0-15.5 Below low normal [facility] ( [facility]) Red Blood Count 3.95 10 4.00-5.40 Below low normal [facility] ([facility]) Hematocrit 35.0 % 36.0-47.0 Below low normal [facility] ( [facility]) Mean Corpuscular Volume 88.6 fl 80.0-96.0 Normal ( applies to non-numeric results) [facility] ([facility]) Mean Corpuscular Hemoglobin 29.9 pg 27.0-33.0 Norm al (applies to non-numeric results) [facility] ([facility]) Platelet Count, Automated 229 10 150-450 Normal (applies to non-numeric results) [facility] ([facility]) Mean Corpuscular HGB Conc 33.7 g/dL 32.0-36.5 Normal (applies to non-numeric results) [facility] ([facility]) Red Cell Distribution Width 15.8 % 11.5-14.5 Above high normal [facility] ([facility]) Nucleated Red Blood Cell % 0.0 % 0-0 Normal (applies to n on-numeric results) [facility] ([facility]) ID Date Data Source [id number] 09/29/2019 11:32:00 AM EST [facility] ([facility]) Name Value Range Interpretation Code Description Data Aby rce(s) Supporting Document(s) Lymph % 21.8 % 24.0-44.0 Below low normal [facility] ( [facility]) Neutrophils % 70.0 % 36.0-66.0 Above high normal [facility] NT ([facility]) Eos % 0.7 % 0.0-3.0 Normal (applies to non-numeric resul ts) [facility] ([facility]) Reagan % 6.9 % 0.0-5.0 Above high normal [facility] ([facility]) Baso % 0.3 % 0.0-1.0 Normal (applies to non-numeric resul ts) [facility] ([facility]) Neutrophils # 4.8 10 1.5-8.5 Normal (applies to non-numeric re sults) [facility] ([facility]) Lymph # 1.5 10 1.5-5.0 Normal (applies to non-numeric resul ts) [facility] ([facility]) Immature Granulocyte % 0.3 % 0-3.0 Normal (applies to non-n umeric results) [facility] ([facility]) Reagan # 0.5 10 0.0-0.8 Normal (applies to non-numeric resul ts) [facility] ([facility]) Baso # 0.0 10 0.0-0.2 Normal (applies to non-numeric resul ts) [facility] ([facility]) Eos # 0.1 10 0.0-0.5 Normal (applies to non-numeric resul ts) [facility] ([facility]) ID Date Data Source [id number] 09/29/2019 11:32:00 AM EST [facility] ([facility]) Name Value Range Interpretation Code Description Data Aby rce(s) Supporting Document(s) Creatinine For GFR 0.56 mg/dL 0.55-1.30 Normal (applies to non -numeric results) [facility] ([facility]) Glucose, Fasting 118 mg/dL 70-100 Above high normal [facility] ([facility]) Blood Urea Nitrogen 13 mg/dL 7-18 Normal (applies to non-nume clarissa results) [facility] ([facility]) Potassium Serum 3.4 meq/L 3.5-5.1 Below low normal [facility] ([facility]) Glomerular Filtration Rate > 60.0 Normal (applies to n on-numeric results) [facility] ([facility]) <content>Units are mL/min/1.73 m2</content>
<content></content>
<content>Chronic Kidney Disease Staging per NKF:</content>
<content></content>
<content>Stage I & II GFR >=60 Normal to Mildly Decreased</content>
<content>Stage III GFR 30- 59 Moderately Decreased</content>
<content>Stage IV GFR 15-29 Severely Decreased</content>
<content>Stage V GFR <15 Very Little GFR Left</content>
<content>ESRD GFR <15 on OBSTETRICS SCRUB NURSE</content>
<content></content> Sodium Level 141 meq/L 136-145 Normal (applies to non-numeric res ults) [facility] ([facility]) Carbon Dioxide Level 25 meq/L 21-32 Normal (applies to non-num grady results) [facility] Anion Gap 6 meq/L 8-16 Below low normal [facility]) Chloride Level 110 meq/L 98-107 Above high normal [facility] ([facility]) Alt/SGPT 405 U/L 12-78 Above high normal [facility]) Ast/Sgot 284 U/L 7-37 Above high normal [facility] ([facility]) Calcium Level 8.8 mg/dL 8.8-10.2 Normal (applies to non-numeric re sults) [facility] ([facility]) Alkaline Phosphatase 937 U/L 45-117 Above high normal [facility] Bilirubin,Total 8.5 mg/dL 0.2-1.0 Above high normal [facility] ([facility]) Total Protein 7.1 GM/DL 6.4-8.2 Normal (applies to non-numeric re sults) [facility] ([facility]) Albumin/Globulin Ratio 1.03 1.00-1.93 Normal (applies to non-numeric results) [facility] ([facility]) Albumin 3.6 GM/DL 3.2-5.2 Normal (applies to non-numeric resul ts) [facility] ([facility]) ID Date Data Source [id number] 09/29/2019 11:32:00 AM EST [facility] ([facility]) Name Value Range Interpretation Code Description Data Aby rce(s) Supporting Document(s) Carcinoembryonic Ag [Mass/volume] in Serum or Plasma 2.3 ng/mL Normal (applies to non-numeric results) [facility] ([facility]) THE CEA ASSAY IS PERFORMED ON THE [employer] BY CHEMILUMINESCENCE AND SHOULD NOT BE COMPARED INTERCHANGEABLY WITH OTHER METHODS. IT SHOULD NOT BE USED ALONE A SCREENING TEST OR DIAGNOSIS FOR THE PRESENCE OR ABSENCE OF MALIGNANT DISEASE. PREDICTIONS OF DISEASE RECURRENCE SHOULD NOT BE BASED SOLELY ON VALUES OBTAINED FROM SERIAL PATIENT SERUM VALUES. Cancer Ag 19-9 [Presence] in Serum or Plasma 4844.0 U/ML A aguilar high normal [facility] ([facility]) THE CA 19-9 ASSAY IS PERFORMED ON THE [employer] BY CHEMILUMINESCENCE AND SHOULD NOT BE COMPARED INTERCHANGEABLY WITH OTHER METHODS. IT SHOULD NOT BE USED ALONE A SCREENING TEST OR DIAGNOSIS FOR THE PRESENCE OR ABSENCE OF MALIGNANT DISEASE. PREDICTIONS OF DISEASE RECURRENCE SHOULD NOT BE BASED SOLELY ON VALUES OBTAINED FROM SERIAL PATIENT SERUM VALUES. 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 [file] 0KICA+Mariaa+Fq9SKIZrNGZvIUJhCrZvFQBNQlOiH5UoN0QZy0MaI0JnMX28lHfacwFsLDfxFK1YDH6rAY PgNOZXOJ9OmTGrtJ0zryP8GNIqTOUFIjCiX33edBZf MOYyCEC8WUHfBw7EDBAyV2QdlsEwpGyubsQoYPMkTKPQZD0YWXggjhMvwHLdeIwcIL14fBkwQB9OFj1C BwRoXG0pct6FoOXfYh9DDAO3Wx9JFPMxQDYnEQPmTDM7VVRsIpVnPQrvPNRtGDSxCDD9HDAqQQOnRZ0N TjGvKQGrUGZ9NAEvKLOuWMEizr5UFHBcMLY3TmN7Qu ClBQVyMLVlWIdnVYLyZLYpUTZ5HBWjOHWyKZ8WLxBbOMZuODC6SNRjIOGcKNGtvf9AEJJsJPMkELHwKL LbJBStDQRrLKnzPYYbLAByMHa4TDMqVEGwIL8ENqHpUQAwGOS2RFUxAOZyWWMnjg7YPDMwMQUfRQTiFu WuJXAcDNLiNWxwCTSnSSS2LOOyLCCsUILwUD8LXvAe EPZxTDFwUGUyUFWoSWPdsd2HGYKvDDH9PCO9KBGeTRDmSCDoXEgwXLCbNQo2WyVzACCtVSJlQJ8QMdPz DMKwUZH7IxVaPJJvWKTxtb5NWFVkARP6QMB0FUZaMEBzCXJeKChzYIEaKFb1XbA1CLBiERNaKH6MOcCi IRFlLKEnSaMgECHjGYBawh7ZJJMaTJVnRXI5CPRtTS GbXFKyVWqxAAAhYAX0PXI5CDMcGQRtFE0ADmXlQJKmITH9NrNcWIZrBLDznq5KPJUrGVH7HGm6QmCkVL ZeUZPoBDjjKORyPWv9MKN3NPDtKIOcFH5CNbInXZLvFATeLSPdYMSlTORyre3NYSPgXWZ2BjLdNnGhQR OhALGrQPxpRVWhBTt5ElQiQLHvNRAjYC6IYoVwBALs LYS6ABJfOTDhLQOozx0AEASfYLGiYqV7GcIbPSZvZSJfGHqqTHXvKFL4MwJ2NBTvDKKxKM4COiZpRRTn BVg7KzLgRYHaRUWyzq7XEWImECEiKQhkPsHmYSCfSTJlJHzfAEHsBGV9Rtd1BEZgHKRmIG1TYoGuTVTz HMd4TifbUVGiLZMwgd0BKKSoDIJbZSE5KDPrLGFjCH CcBWlmZDWvOTM6JOddKVRcDBBsIT9XLyHmSLLjDYtqPBJdWTNsDEJrhk5CULClVOD8UdS9QPLfLBWtGT EzTRpmPXZdPFY8TFQtKQKeZPCwSX8UZiXyXFPqXMurUrpsRIOoXYNlyg5NJYBpVYW9JEViKgBoFZViML IqPNvcOOSxEVW0KnPeJDOcJARbVN2FZtAbHKQpPNj4 EMqkAKEuMDIttz6LOAOoDEH6OENhDhYrGLNxNXJpZUqcFLPlHQCtQlD4INZeLOYdGI1BUmJlBWQpQDQ5 GDvzKXBlESKzya0MHRWrKCP4MLS1TWJvCQNgQCNcJFoeKBDwNOE8DMojNUErLAPoYC5LBcOfTXNkBCOg UMSyQVGdWGOwfl0UKEAjYPT7AoFrKFUaFETtJMCgHT kgOWTbLLO2YEaeCAQoQQIrHU6PVsCyULKvHtgzTpHxVJGbHTNpoz8JEEOeIUN5CpC7YdEnEOSfEOTgHC poQYIrYKB6Wdh2MGSxBRUyOR0ZMiWhPLKgTxr5PxjaNOLaNFOhiy6JBHMvNFZ1WBR9YHKuBQJjPTQmKY vsSSSiCPc0DDO4TXIeRJOgVK4WOcIvZUNkYQz6TAAs VOUaTJLgox6OSYWuLQE6EcfeDPNpVDSwFLRsLPnpNLWjJMm1Dvp0VRLfGHWfJW3SPkScPQAuZUj8RAAn YGZrHHCznk0GEMMsXBW4VEI4DXGaKSPsPOMzIHifGIIgOKi4EeE8WAPkMRTpJF6YAfNuYFNjVMx4KNFh NSWgFHOdef8KWRNuAQQ4VWR8GtIgGACcAPQpJJnkMQ RaOAohOeD7YBAaEESqIY1GWtOsKSEkJDD6QNrrITLbJRThot9EQCPeRBQ3BHOiWVPxEVFzMVTgGTdfWT GkHZfsMWqsOZWcIZXjRJ1XZyMuPOWnXBH9QdAzJMIvZTDcom1XOQPaFYB7BmHoMiBkHPGmOACoOZmbYJ ZtWIklAmKcHFVsVLTnWK8QAqRcRSBgGDZ3WoSbIYFo IVSvph2PSIXnVFH0LaV1ASNrAIEkGYAySWe4ydWapQQvBIn3KV0EZ5RqroBhYqUYRb0Ic828THxbHQPl Os1XD2mrEm7lKKEhGDPWBl7VBBk6EnF8BLWjPwZiPGFqXOPtHMWcHFJrCZmrSPJgNdWpARM+IDxmNDZl NLSqVCHuWwM0XqKrLBR5WTYkNDGtBaBjQtC3Jh7f XSANCj4+KHbylVZswLnlTOKLSdt5AjMeCKocVEORSv1F ID Date Data Source [id number] 09/25/2019 12:17:14 PM [facility] IR VASCULAR ACCESS INSERT OR REMOVALFINA L [...] jugular vein. Using intermittent fluoroscopy, a 5 Guamanian micropuncture catheter was positioned in the superior [...] jugular insertion site was dilated to 10 Guamanian using a peel-away sheath and under fluoroscopic [...] rce(s) Supporting Document(s) ID Date Data Source [id number] 09/22/2019 01:25:29 PM [facility] Name Value Range Interpretation Code Description Data [facility] rce(s) Supporting Document(s) Progress Note [facility] PHTRPe3zEaAGYaEc82/ORVdvUWPpe9LzBGbkERw1LNeyQFBlC5YfUPV3zO4mCLW2ZKjHJaUaTeYfDwMv [facility] [file] ZJE8XtW4ZKZrRJN2TZvtW8IbLvS1Sp8xJTEBMf1+OFdkoVQfbHjnCAHYBvG4HoZSUgXuYA3HHTb= ID Date Data Source [id number] 09/22/2019 12:25:[address] [facility] [address] THORAX WITH CONTRAST [id number] RESUL TInterpreted by:Mauricio Nava MDINDICATION: Pancreatic adenocarcinoma, [...] rce(s) Supporting Document(s) ID Date Data Source [id number] 09/22/2019 11:37:34 AM [facility] Name Value Range Interpretation Code Description Data Aby rce(s) Supporting Document(s) History and Physical [facility] AIZAWm6wLvBXQnOf94/VMGjcAKCzs0MfLGqtRZf5RTctAPZhQ2GpJNW5mQ4cXFW1KLcOUxQwPhCmIjYx [facility] [file] I2PxM9TNhlMZXATb7W ID Date Data Source [id number] 09/22/2019 10:21:25 AM EST [facility] Name Value Range Interpretation Code Description Data Aby rce(s) Supporting Document(s) Progress Note [facility] XPAJMh4hEpUEYcBj88/IQAygFWHkf6GoGShdRZg1IDzaTDKaM3VyLPW8yL6mXLC6RGsHIwPaVvTzTxMk lbm [file] AgICAgICAgICAgICAgICAgICAgICAgICAgICAgICAg ICAgICAgICAgICAgICAgICAgICAgICAgICAgICAgICAgICAgICAgDQogICAgICAgICAgICAgICAgICAg ICAgICAgICAgICAgICAgICAgICAgICAgICAgICAgICAgICAgICAgICAgICAgICAgICAgICAgICAgICAg ICAgICAgICAgICAgICAgICAgICAgDQogICAgICAgIC AgICAgICAgICAgICAgICAgICAgICAgICAgICAgICAgICAgICAgICAgICAgICAgICAgICAgICAgICAgIC AgICAgICAgICAgICAgICAgICAgICAgICAgICAgICAgDQogICAgICAgICAgICAgICAgICAgICAgICAgIC AgICAgICAgICAgICAgICAgICAgICAgICAgICAgICAg ICAgICAgICAgICAgICAgICAgICAgICAgICAgICAgICAgICAgICAgICAgDQogICAgICAgICAgICAgICAg ICAgICAgICAgICAgICAgICAgICAgICAgICAgICAgICAgICAgICAgICAgICAgICAgICAgICAgICAgICAg ICAgICAgICAgICAgICAgICAgICAgICAgDQogICAgIC AgICAgICAgICAgICAgICAgICAgICAgICAgICAgICAgICAgICAgICAgICAgICAgICAgICAgICAgICAgIC AgICAgICAgICAgICAgICAgICAgICAgICAgICAgICAgICAgDQogICAgICAgICAgICAgICAgICAgICAgIC AgICAgICAgICAgICAgICAgICAgICAgICAgICAgICAg ICAgICAgICAgICAgICAgICAgICAgICAgICAgICAgICAgICAgICAgICAgICAgDQogICAgICAgICAgICAg ICAgICAgICAgICAgICAgICAgICAgICAgICAgICAgICAgICAgICAgICAgICAgICAgICAgICAgICAgICAg ICAgICAgICAgICAgICAgICAgICAgICAgICAgDQogIC AgICAgICAgICAgICAgICAgICAgICAgICAgICAgICAgICAgICAgICAgICAgICAgICAgICAgICAgICAgIC AgICAgICAgICAgICAgICAgICAgICAgICAgICAgICAgICAgICAgDQogICAgICAgICAgICAgICAgICAgIC AgICAgICAgICAgICAgICAgICAgICAgICAgICAgICAg IQWxIKWgYZTrCOVhCCUgBLDfNCYzYULpFAJwBKStATUwHWCwOYTiVSElFZKrCTCeICl9W8gqRNXwRYXl TW3kGDk5Pt1+ULhDSjPaJMG8mjWelB2USU3ky2AyJRafCFNvg9GxGVb4WS9IVXPxDBygGI9YCJjgur4P UFFmRHOawCHWe6stFjNzNLO6GUPhMdahRR6JTONiS6 lmzuSpXVZhDMRGMZgtCOSYTWphOWZIAGWkRYPcZkDbRrRnFKZpRMYlKNEIYXT2RRZhUlWiVYSiGYUnEn AtEBNCCH0LJpDcV0GiwW68BGeGIa6+JRfvpdMpInqXHiUqTEGrt3NuREq7EX7OEYVqTxzta7MwXLZaBA UVGWwzYT9STWE7MAFkCMCjGf1AUKTmX680jbEhMM5D Dg8XNuFoKA3lko3YBCZdKORvVgrXAxl3GSucUX0JzMQgVSnPva8jkpRnhdIJg5RzgaQeoVIXoJQfm6Ox PUWKMGTtyPUpOFNEXNKwoBBhPxXqMmFsUiNbZLk9WXPjIR9cSXfqKP3YZCM8JCwxBNXkFQTaL4nQXpRc WUQhQaTfpNqrHQ0FWuAhD9ZbkiLgiSC5SiIjNIJEJh 4+TLnmfsVtArwGMaB8VBFyw1FeCKf2LC3YMJSzEXxwZP7QGRVnaB9mOUroNX1XNbZ7MKKeOFOLRrBrD7 9wbFYyNUn7S5IiNgMxDWCtQnpkDFBmMRrbFzVzQUOjYdBaBSjtTB1+ID4+XXpfPH9XIAmowsReBXDuBc 1OXVScAUZnID1vVLNlEZIbZ0U6kLjvYZKPGnRrX5ea ihjkIR8fCAInS492gQmapqXcJOQkKFQoZh7DXKBeVUY1FGCmlDLoJZZoTQBFTTrxHT0KzSXkCNY0oU1y EGxyHRFvRIImO3bWPrBrjTwcRW34cLjloeWefRJiRHf+Cy5TBV9en3SqJAy7miLvUHeuSMS4JKqbMJUf YHPxCGUrUZE6WYF4AZLYKbPfASVhOYEhVGiiOPVcUX Lhtn9GYPNnZUY8RVW7QXXlRBLtGPEuMDsdDCKcYXznLeo2SVVoGUXzVG9HBtQfCZNxUSKeLVopJUVrZF Onrl4UYVDrAUFgLrhqCuElOJBxXYTjTLvdWOAkCNNeYUM1LKAjSJKhSV4KFaSyKWSxSXywCQFiXPAbTO Sihu8QDAGgITHtMdK4WXSvKQGcRBHzZFhvRDUoTXF8 Aer0IFCtTMDpCJ4OWlCsJKNcFKj0WPehWMRtNKJrzd2EQSVuMCHnYaUiCbLsJDLzCRUeITklEBGnAXJz IHN5ARFpAPOpGY3GUzTjWYLlSPBhEkSkCTBgCUJbet9VAKOrGAXqEKRkIzSfDCTwBRRrHYmaFWXeIVL7 ZYV4ERWnGBTqTX8JCxDsMCBjIJohTJFfJFYzNVSriw 2ANCRmAQNaNOU9EOIsNWYoIMAyVNljYWDsUIO5NGM5VHJzDNUjWL3DUpExVHShYmD5NsYrHZFuGCJzpz 4LBXPsDSZxBMs8ECJsVCGwPVFiSKyhMBEkTRQaCMy0OZSxXJJfGS4OMeGdNOVrUtT4HPPdJXHnREJuuf 6IPEZcKLJwPjG9JVYwCYYhFAQiWXtmVTQgVIEbWCV5 HFPiBKHhTC3RWlPvANZiGfUnMuYpQGEaIIIykt7JPAZlRODlDXk5AINjCLHlGRFgKDglPSDbPHD8CFma QGEtVCDeMQ2EDaPzJSSdSlUtKrEbXRFzNOAnus1HMAWdPRMaFzcxFEHePQScLGPcIVeuYKWcWUC9HLH7 KRVkIQEnYT7WPxGdJOSdRhyqDhQlQJXzAJUjfq3BAJ PlZHMlIfH1FORqIZUdUIPbOIevMAWoRUM0NaJmGWQrYXGxYA8MNeFyPGEeBak7NvNbZISvEMZklu0KVH XsGKZfYRp1YwEdTZByDYNeFLaxUKDuONG5FMPmHXUzASVfKN1EVpOgOOGrCxe4LUFvFCAwOLZrmg5DLZ LjODQ1FOe7FSAxJXYfPJHhRTmeZSHqEPclJcOjTMJa GYElHL0LIvBoYYOgUau4DxUrOQDlXAAhfe3JPQSdRVZ1AVb6ZeMwFJPzWNVlFFtcLICmCOerHEB7TAOy ORTnNR6BOrFcUDFwDVJ3KZiyPZQnAXXlgj7EZPQkXZL0CST8YFWmMDAyDARlXMd4raDrcDKnWOl7FN1G Y9MwszRaGXUNQf5Ku951XUC8TSYmJn3ES3iiSo0mDJ DjGIGFVb4IRKa2FQYlPMOfDhQxYQGpZoHiYtBgDeb2IwGwEEm9Q4T2ZpV+CWwpPtU0VaWrLfLjDaBmBK X9NzIqKNPpORT9RqseWcv1Tu0jMDMCDf2+BRnlbIIhwQedMENJDmT3ZYyhFI0BWMVRB9GZTu== ID Date Data Source [id number] 09/22/2019 10:34:41 AM [facility] Name Value Range Interpretation Code Description Data Aby rce(s) Supporting Document(s) Leukocytes [#/volume] in Blood by Automated count 5.5 10*3/uL 4-10 [facility] Erythrocytes [#/volume] in Blood by Automated count 4.12 10*6/uL 4.1- 5.3 [facility] Hemoglobin [Mass/volume] in Blood 12.7 g/dL 11.5-15.5 [facility] Hematocrit [Volume Fraction] of Blood by Automated count 37.9 % 3 6-45 [facility] Erythrocyte mean corpuscular volume [Entitic volume] by Auto mated count 92.0 fL 80-96 [facility] Erythrocyte mean corpuscular hemoglobin [Entitic mass] by Automated count 30.9 pg 27-33 [facility] Erythrocyte mean corpuscular hemoglobin concentration [Mass/volume] by Automated count 33.6 g/dL 32.0-[facility].0 [facility] width [Ratio] by Automated count 14.1 % 11.5-14.5 [facility] Platelets [#/volume] in Blood by Automated count 262 10*3/uL 150-400 [facility] Differential cell count method - Blood [facility] Neutrophils/100 leukocytes in Blood by Automated count 63 % [facility] Lymphocytes/100 leukocytes in Blood by Automated count 28 % [facility] Monocytes/100 leukocytes in Blood by Automated count 7 % [facility] Eosinophils/100 leukocytes in Blood by Automated count 1 % [facility] Basophils/100 leukocytes in Blood by Automated count 1 % [facility] Neutrophils [#/volume] in Blood by Automated count 3.47 10*3/uL 1.8-7 .0 [facility] Lymphocytes [#/volume] in Blood by Automated count 1.54 10*3/uL 1.2-4 .0 [facility] Monocytes [#/volume] in Blood by Automated count 0.36 10*3/uL 0-0.8 [facility] Eosinophils [#/volume] in Blood by Automated count 0.03 10*3/uL 0-0.5 [facility] Basophils [#/volume] in Blood by Automated count 0.04 10*3/uL 0-0.2 [facility] Nucleated erythrocytes/100 leukocytes [Ratio] in Blood by Automated count 0 /100{WBCs} 0-0 [facility] ID Date Data Source [id number] 09/22/2019 10:54:10 AM EST [facility] Name Value Range Interpretation Code Description Data Aby rce(s) Supporting Document(s) Prothrombin time (PT) 14.2 s 12.5-14.9 [facility] INR in Platelet poor plasma by Coagulation assay 1.07 [facility] Routine intensity oral anticoagulation I NR is typically 2.0-3.0. Target INR must be clinically individualized. ID Date Data Source [id number] 09/22/2019 10:54:10 AM [facility] Name Value Range Interpretation Code Description Data Aby rce(s) Supporting Document(s) aPTT in Platelet poor plasma by Coagulation assay 25.3 s 24.0-34. 0 [facility] ID Date Data Source [id number] 09/18/2019 11:31:00 AM [facility] Name Value Range Interpretation Code Description Data Aby rce(s) Supporting Document(s) Progress Note [facility] DUURZq1qAxETToBf06/RJGnlHODov4HjCAbqMGr8GFmwRWQiJ7TxISJ5pJ2tKBP7BHiPKpLuWcFkDuU4 m [file] UaAOM2SQuyNHNUEw3Z ID Date Data Source [id number] 09/17/2019 05:49:01 PM [facility] Name Value Range Interpretation Code Description Data Aby rce(s) Supporting Document(s) Progress Note [facility] VLJPAy7nOkSAMrMp70/BDYykNYTkp3VjOAfcMZd7IHmoLJVoS1NrAJW7lI0qLWC8GPoXMqXcLcAuAvL9 lbm [file] Enfn7HHDZFTLNiuJAOPM5KTDWCromdnhElghJcaCRg romfPo3tySRYSQJ9UmRV0mczqSfpnbdiZtw5z0Majifo9lkADZ1E5D4/+/3+mVTV6+iu2svzb5iaMwqi 3AWLHmxw6lm4/MdkZUdMKr9cMKSsRYQz0Xp3nHjdbYt0/PvMykh7pYBbJP4mY6zurm/9mH2ZJJ9VcOl6 3VLIm8kR8oqXmINvpNrae5++/guFat45DUPhdqAxQq 6ObQK5Mp957ImI6b6wCTCbwcF6kL9C+szMhloS4vau8jQgrEoHdhNTlpN0/0eToJ6i/v6AeoGtQR07l2 uUlvz3pkFH6w9FoHoBjJ/i39+5872flsz02i9RqlydDrZ949k59pSYq3/U/9TWrtkGkifAoQLtMWsAuX Vecpl2b4Giwq41pMOU+jjdUcCqqIV1vpQkHRlVRDZb 1IAQv0/3TcSNUTdbCMC89RaR5zITifN0AsHodKnFRQ+p50qSvfV5fETAIvhKNbbJfCI24Qo9LFs9Bv8V 1eoSAVpCa0sQXfqiwH2T9REfjJZaJY2G5e+Ow+u3wFkjsGT3JRumui6Ee3OKx4HrxYRuFbpZOVWP8bkR GKOu8EF9Y78qkOkODx/pd3LfhUV5Xe4Qtjke6CwV70 aiIG4Ao5x/pLuQA+YsjqC7lV1A+Rf4a9xALNNSduf8kS0TruRXtkFNWZ+GzgSQnZXco8gdR8IAQoO94M fjmVDDdByCgp1kbd7vAV/AkVm9rPAxfy4QqHFhHg5FY1TxaJRdGFsKbjub7TZjMZ+4We10FHbJE+DXgX 7M1sydpCo5WIh3PdSz7UW3h5h9F5mQgniJsoiybMQJ uT4tSi8zPU+xI0DqHRg/ZyHMwuFwbGMI7maGB/GQl6Z4K7FSx+DjtJ1gX6B9qL1UK6PURYj76Kkq59T/ 4TxcjsfhetKTLCSPckuQDE/vQ01h5OzG0kio0o/cIA9MVPOXm5G/qx3hBmKFb47gGha0U/Hb7Rjnp8bP exercise planner+Fb+D/48VK4VTS1pf8J/5Z/w9raqcdF6KN1A65X [file] ICAgICAgICAgICAgICAgICAgICAgICAgICAgICAgICAgICAgICAgICAgICAgICAgICAgICAgICAgICAg ABLlLEJkLTZtMYRlQFVkYLLkVRBvKCMnQS4THKPfAD AgICAgICAgICAgICAgICAgICAgICAgICAgICAgICAgICAgICAgICAgICAgICAgICAgICAgICAgICAgIC DuBWXtSRFgQFBgIYFhEVKfYEFqHXDcNWOjMLWsPLDkHIMnKI7HHBRdSFMpFBLbOGFnFFMeKCNgKGJjAH AgICAgICAgICAgICAgICAgICAgICAgICAgICAgICAg OWMiYHBvJOPgQPQwMUVtOODnPMEgLFZlDPGuLYToAVJsZGOtLZHlLDRxYLDtUY3OXKFjRRFmMKNpAHGq ICAgICAgICAgICAgICAgICAgICAgICAgICAgICAgICAgICAgICAgICAgICAgICAgICAgICAgICAgICAg XCPdEDIlNBIjEIUhQFOzAKLjZGQtRSRiFOYzQF4ELV AgICAgICAgICAgICAgICAgICAgICAgICAgICAgICAgICAgICAgICAgICAgICAgICAgICAgICAgICAgIC GhICPcRBYeISCqQUCcQIRsFYTtIAHuBCAzXGAkFVIiJSWcHJZgKR3ZFWEyKPNaVMZjSVYwEVNiCQQqEJ AgICAgICAgICAgICAgICAgICAgICAgICAgICAgICAg RITuASEhTPZeVKXmXSMuDOGpWVYzIMGbOLUpAYCuKFHbVCAhNMAkIXOwJKCcCVVvQA5SYEFoCXFkHCDq ICAgICAgICAgICAgICAgICAgICAgICAgICAgICAgICAgICAgICAgICAgICAgICAgICAgICAgICAgICAg ICAgICAgICAgICAgICAgICAgICAgICAgICAgICAgIA 0KICAgICAgICAgICAgICAgICAgICAgICAgICAgICAgICAgICAgICAgICAgICAgICAgICAgICAgICAgIC XtWTDrUUEpFCDwDUKbTDDjZDAxQWAmFZJtZLXmWIFvZEFfDCWeTZYdUY0AVGOrCCIsVNAtLUCmXWBcKS AgICAgICAgICAgICAgICAgICAgICAgICAgICAgICAg NANtIKIcLDVhLIKqROSlRHJrTKIoZNYxWGYnQLGrBXXaDSIpGEAzUHPeHOTiDCZjJYKzZZ0HHWLxLVNp ICAgICAgICAgICAgICAgICAgICAgICAgICAgICAgICAgICAgICAgICAgICAgICAgICAgICAgICAgICAg ICAgICAgICAgICAgICAgICAgICAgICAgICAgICAgIC PqSC2KIB04nJUhp3Y0VNJuHG0faoe/Bc7LLWohsyTyfIEqEZ5LBaUtVE6cme1SQpLaNF5bot1IEBoGGh ItC6E4xQNjSFEvSNJQCsQtC54bZCnwBn99URcsXJPvOpGvAJq4Fm4XFdNhV5ewQKWoYbC7HMTzAcU7MJ RvBaNbHETfLCJiRCFeCHDAUDY4XJGiHnPkFmTuTWLx WLwxVVRULU0LYlHbY0LgwR38LBqATj4+FPqvooKpTwjRQzEwVDSgw5ZdQGt5QO0UTCBwWcnai5WdWNJd NNEJJJaxOL6OLCW1DDRyOZCxYf4MWCCqR076exWmPS1LSm0XRyShBF7kqe8TBIJtSEAtHlhVGjr5PTqs ZT8NySJiHBnNwf9wnvUvcrRDx8SgbwOkzHLEfY2ibN XcBsQOm8KnrTXhAO1BQUNeOYDpsPCxApSkPgEfRMQqQudyIMVEQUrNVtCsW2Yhy5NlImR1RHSlYwHaZI meISOfSuH5RD91dDreLB6XEMExJEUwNI99PPXzFWRjBx2UTx4PYzCwGT0ovd3JWCRbLJ4yae6EXWcXTs IfU4R6qYInN2Gqnl87XZ9SoZZ9cSLgYJ2YdG3rWB6F c3MuCHUmHdItJYQfKOTeHQQkJCMdIuInFT4LOPWbTxXhbBPoIMIrZiD2ROVtTeY1TZLoYT5ROCRgVEK3 KU2OIH0CQmgsF3DEUGeemWpaNrLZICE/BYNMOGCZWUxwPTUsR13VL1AEVIyJWvxaOOyVPgzoJt4jEHv+ Wl8JYX0sm4CkWIp8JmPfSF7hmu2WCKrTPeHmN7D9jG TsL4R4NBvgWe5LGVFbPFHkCZgbLCZLZCsuRZ4HSH5kaeJ2VU2YvYQaQBQlMIBniUObNOd8Z30cjAHzYO qnTT7DRTJ+Mariaa+An8OGDQqRDSjYAKpPhAfUXHXXaQdU4TmP0RVg9RzQ3HjUG95tWimupXvNKqjNP6ULB 7wFYPzDYKPGV8NyVZelH9swkZ7TFWgHFTOLpBaA36t kGDgCZYkQJBtMTBeHj6UHDWaM4GyplVwpVnpoxLwFDQrBTMTAV0AKTzxkvDsyZSfsJbsQP26aLxwPZ9C Ic8LQbBvVU6xfe3RyEImAa9ASZZ3OX7CRONyNHNzHXOrDRS0ERDpLuMoEBjcPUKgULQiIGW8ZWIpSMVg HR5VImOlCZQjVXP2XsSgTDOyHZJaku4HIDBvREW3Vg G8WIXxXGQvYBTmDTlyHQYoOTCgFUM4NUQwONVhYU2EBlDlQGTdTPO3QtbkZYWkJHQzea7ZNQHuYLNiQR n8AgRoDHFhTJKiYPqiSKNtHDG0WPD1SPZaNWCcLK5NHjPpYOXkFBp5TjGqWNWyFQPxzb5LVKXlKPVqKr F5TLDvIDZdGVCgUTaiLZZpMGQoUxS9KQUqDVBkOZ2Z VhDaENHxIYR8JlPlFNEtNVHkcl3WXMNgDCJaKVl6KhTzSOZhHTGtMWsjKMCyWRD3OUFnOWCbPDSoLQ3K ByOnUDSkVgUrJGccPKPwLRMelc2ZXZJcWBDaGGO7AyPxSBKqIZZyIPtlMTIeAHP6MbX9RMFmVELtWM3F ZvWgRQEfScI1FLZcZQBjSFDlvq7JSWUvQJSrCPTiDx YfEBSxZJQgXIniRMKhYPLfENBbEZGtSJOaZJ6PKpEqNSXeOcX1PhPdPCZbTQNxsp2TCVGsZGShGWS8KA LaLWTyJOKxRFcuBOPgOOWgHYDhZIWrBNLjVK4GCfKmDEEfXpC6ATMeDMGvRLJzha5SZVJpBUMdWuRjYj HqRPHpQBOcQXebLPOlOLWmSbGrETHkVPMeYL4TOoRi JLLfAyZ7PAnvHUZpOENmcu6JVJVgBOI3SYU6NzVdOUYqWCCiRCinABXaNDP7Bye1ZFWeDZFrFH4AWjPs DJAzUlX1OxUzZPJdUFFpic7POFHxKPN0BeZ4MBMdGBTtJGJfBMlxPRLoEVD7JpVjKROnVMUyRV3RIuCc JQLfDnx9HIYvXKBvQFQjxc2KFWXtQFP2Mat5TTFhRT KfZLFmZCjaEROgODjwQJW6HVYqNTVjGW5MOuNqFFTiTpQmIaLtTJSlLJEcrg0RKXJyGTD2PjD1JWYfFR WbFKGaCQemDHBjHRclKpT3RCXqXXSeYA6PGpNyYAUkTnQ5ZjWkJORfNXZazs2ZEEVsYMZ6AZyaHANzDZ PyJVJbWCwaLAYyAYe8JVfuXQInCMBkBI8AGrPqOSFv FvRvCgtpKDNjLKJqnz6OEUYbWST4JxQcNnWjUHGyLFUyVSjzDQDbOBl7EiJ9ZGCwVXFyET5QBzZrJOSq HsDuEPxmSFKySNLrhd2QKNOjOLE3GYD1ZDRzPPGnFARpWHvhLXLlQUa7HWY0UDTvBLDeVV8TFoTjWUFr YFCeJpAuAVWkYEAlkr2KCAIqOMU9HOA1AUUoGOQyJL ImOUmgGPEvQAh5FhSwQOXbWBHqCT5JMxFaMZKnNFWiOeDnXPGtCEKyoc2SDHIiPNC2FcXoAXBpBHPaXK QhRInkLSQgNZc4BakbBIPmGAByWS4TRwCpZMJoRRbeVBCoNBLrKHCfhz8CuJAuxGwryg0BWRgOVv5WcG qjQNH5QUsyNo8mzGU0UeSfADKEYn3BbrYgMDUtJDEQ CNdkKLAtHNYrEKL6R3WtYFLfVGjvMBL3M4D6R7RdEjjcGNKzHiA3TqF2GIArYQmiV1M9CoCdKLE3Ofli ENs5YTXtMMEtBYSvPYi+IS3hRKi+Ay3Uy6WuiuF6slLaZIa7QXP0JX3SCCRQN4STDh== ID Date Data Source [id number] 09/17/2019 02:28:40 PM [facility] Name Value Range Interpretation Code Description Data Aby rce(s) Supporting Document(s) Progress Note [facility] XUEYBq0dUdPOKgXc72/PMWyeDJXsm9LvOIjfFJm5TUbjWLBcK4IaFQT4fA2pLXH9YOlKLgUiYeQwJfP1 lbm [file] AgICAgICAgICAgICAgICAgICAgICAgICAgICAgICAg ICAgICAgICAgICAgICAgICAgICAgICAgICAgICAgICAgICAgICAgICAgICAgICANCiAgICAgICAgICAg ICAgICAgICAgICAgICAgICAgICAgICAgICAgICAgICAgICAgICAgICAgICAgICAgICAgICAgICAgICAg ICAgICAgICAgICAgICAgICAgICAgICAgICAgICANCi AgICAgICAgICAgICAgICAgICAgICAgICAgICAgICAgICAgICAgICAgICAgICAgICAgICAgICAgICAgIC AgICAgICAgICAgICAgICAgICAgICAgICAgICAgICAgICAgICAgICANCiAgICAgICAgICAgICAgICAgIC AgICAgICAgICAgICAgICAgICAgICAgICAgICAgICAg ICAgICAgICAgICAgICAgICAgICAgICAgICAgICAgICAgICAgICAgICAgICAgICAgICANCiAgICAgICAg ICAgICAgICAgICAgICAgICAgICAgICAgICAgICAgICAgICAgICAgICAgICAgICAgICAgICAgICAgICAg ICAgICAgICAgICAgICAgICAgICAgICAgICAgICAgIC ANCiAgICAgICAgICAgICAgICAgICAgICAgICAgICAgICAgICAgICAgICAgICAgICAgICAgICAgICAgIC AgICAgICAgICAgICAgICAgICAgICAgICAgICAgICAgICAgICAgICAgICANCiAgICAgICAgICAgICAgIC AgICAgICAgICAgICAgICAgICAgICAgICAgICAgICAg ICAgICAgICAgICAgICAgICAgICAgICAgICAgICAgICAgICAgICAgICAgICAgICAgICAgICANCiAgICAg ICAgICAgICAgICAgICAgICAgICAgICAgICAgICAgICAgICAgICAgICAgICAgICAgICAgICAgICAgICAg ICAgICAgICAgICAgICAgICAgICAgICAgICAgICAgIC AgICANCiAgICAgICAgICAgICAgICAgICAgICAgICAgICAgICAgICAgICAgICAgICAgICAgICAgICAgIC AgICAgICAgICAgICAgICAgICAgICAgICAgICAgICAgICAgICAgICAgICAgICANCiAgICAgICAgICAgIC AgICAgICAgICAgICAgICAgICAgICAgICAgICAgICAg ICAgICAgICAgICAgICAgICAgICAgICAgICAgICAgICAgICAgICAgICAgICAgICAgICAgICAgICANCjw/ uXDpA6dvyWXpyvA1R3mkDk6GAf5REE5op1UiBJZzCGxpvnLcDanXJaMpXRIlYjaWIrn9KNurWR9YaEUj R5XlT8PzYXotUY4UTYAbPQIqjFRqIKDhOCZgTwP5CU EiIZgnTL9LbPRsXZszZJBqPPGgYuUwYBVvBSZvHOPrZSWtHHUFGLJoBQPvFlVkBFDxBTDwMW0DDTPgK9 27ogKjDi1NKi1FDdCgRR6kyr6CZsWoRTWxHhxERpo2MEvcZY7FlYDvuSIgKrXvEOMZGtDgU4nun5SnQt QlFLWAOGatBW4Kf0JoxCNmOMt+Uq6ZRX9yc6KxUPup GcQkPT3oos8AUZvARsTjJ8FfwKwvZYQnb6rnIAVaNK8xiSSyOUW9FYWmtOfzWZ2wETJZhBGxHN1mBFIy SP6QLAW4IGSsEw9hJPZcOCPxTpGuEVNFTA3ILKFlFJFgyOFzTRElTTUXJK0HJPfyULJ9MWQuraLhbNYx LZukGA2XWEFoxeYyDzErONBYCBk+Np2UIT6hl2QzPI pjZIRcYS6vmi5WKFgHAnOzB3P4bQVzB6Q2HTxrBh3BYZJuKTNgOiQiAGGFPTifQU7VPJ3xduY7WX9WoF GiXMFqKPIfoHZjQYr5V58ceWVgYFnvBX5VBKJ+Mariaa+Df9EOTPqROJuSFKvEaZeKIKPKvJkU8NzV4QKc9 MqZ8RcPU17fVnifpHlFBxhWK7LSC1pUHPvJOHYKC8X lLHjsX4uksNcJbMqSWDUAfKaA49lmFFgBVGuBSYoHOAgKo7MRNCrW8JvlvVhqDtirvBvTCNvBGEYTT0Z QDzqyxMrcPNpdXtdYP20wUytUO1PEd4WUbTdLV4zzd8QrPRqKe0YWYWoAU1OXFIcDHStEBAaJNL9GQEm PcWpYKxcBXNjBMWgMLL9OTYiHABqHE2CWtCnAJSvQU YwQpwlBLYsWAIsly9VFNVoLDI4RcB4VLFcRVTpXPAiKVmwMSCqQSYlBHE1SKGySAOwVK7OFtVyPAGcFI I1UvOfZCHiLZXkhu5KJBXqNYMlKpp0GVQnGMAvIICfYYefMXCeIMU5SEAkLSWvZTUxIN1TOqLsGXDtRG z8KWnrMCJgDGYmhw2DQUCzCCGhKSR7CkZnVRNoLRCm KIyhSYQeTKDeHWvoVINbIXJzLW1YReZkCNVnFKFbPnBgGBIuIXMhdq3SQSSeMXGbPKDlYkBnULFdPIEm QWeeCKQkDQD6PHI9JBKlERFdPF9GJeTcIMEhSYe7TZPhFIStAOGjbl9KVBBnJHUiNWE4OOHyVDEgQMBg CTrkKTNgDJO2TNDoGWDtVRSdPJ1LJkDcOGOyGYzeZp BxTEQqBJTpig2VVFArXTSaHFF1ZiUgCDZcMPLoACgrQJGmUUX3WdHpGZFbKBKsQB6NMhMcLCUeCiY2TE rcLRNqMQSpow9KXXKsFUIcHSalYAYiBJGoIZEyDChmTAUeQQPxWRh7KJSzCGYaDH8UPvZuJDAcAMFtVC ozADJvEQNvau8COKPnOQV5JibrRFNqFUXdWXCdQPvo CWDaZRYoUPF1JOGtEDWfDM0IVtMtLSWsZYX5ZJWqKWCrDOAoic4YVFHsQTJ1Lwo5UqJrXYNuQYByWQuz UMYsBDG8PAPgCNJpZFOaEE7AFdGtWPExZMZlApesDNXzFEZsot1XGVIiSPU4SWTcVwIfQMXmZYPeGEnd LQDdWTV9WwS3BJItBGXsNA2EMkItMQLaMZnwHXFmYC UdMSJoxa2WFHBeGTE5KdE2UpTuSRVwEWWoFYflRKSbJJN7GBQ3YKOdBMHlBG7JAhGhMTeeQZINSpu0QM aqO3d4FUFeVS5OG7Cyi4EsLcTtXHSMTFdwSS7ufwXhNYFfPj7TX9kLVtg4IPItIze2OUx5VFNgOUA6OO SbRPDoIwiaDDJbWPviTd2aOOUcCpB1OwTgRZG8UvK3 EzNpQWD3D0IyKQRqSGUrDGTvTdKsPG0RKr7MBmX4WQK2nVKcWn2RIEw9HvHGEzIkNW4DBVa= ID Date Data Source [id number] 09/17/2019 02:31:15 PM [facility] Name Value Range Interpretation Code Description Data Aby rce(s) Supporting Document(s) Test Name [facility] H ospital Performing Lab [facility] Test Result [facility] ID Date Data Source [id number] 09/17/2019 02:26:44 PM [facility] Name Value Range Interpretation Code Description Data Aby rce(s) Supporting Document(s) Progress Note [facility] DRMARc8pSwFEIzIr78/QENqeNBLxt8AcZAxmRIq8IDasPIBdW3QfCUE3gQ3qEMX2XHxOHyNgZpEcVpG5 lbm [file] ICAgICAgICAgICAgICAgICAgICAgICAgICAgICAgIC IzYIIjBDHjCJJyNERuKCWbDA6FCWExYRTwOQQvQHNjJGOmVZEzPVUyEWSqVFYlDKZmZNPjCEOmLOSyJC AgICAgICAgICAgICAgICAgICAgICAgICAgICAgICAgICAgICAgICAgICAgICAgICAgICAgICAgICAgIA 0KICAgICAgICAgICAgICAgICAgICAgICAgICAgICAg ICAgICAgICAgICAgICAgICAgICAgICAgICAgICAgICAgICAgICAgICAgICAgICAgICAgICAgICAgICAg JBEcMWLzXYEiQA2QBLUwMNZwKZDhROHvUBQyRPZuAVSdACOrEBYqTCIrHDRgJYNzGPMrELQnSHVoOXMo ICAgICAgICAgICAgICAgICAgICAgICAgICAgICAgIC PoLINsZLBmOCIyVDXmOJDnEPFwFX9FOEYwIEZwINRlJJIeMYAvQOCxVRPvACPvIGRqJKCfYZZaPWMyJM AgICAgICAgICAgICAgICAgICAgICAgICAgICAgICAgICAgICAgICAgICAgICAgICAgICAgICAgICAgIC GsCG1INJYtBDSlYTBlEYLkNDFuFENrMVBlJAFqNCLb ICAgICAgICAgICAgICAgICAgICAgICAgICAgICAgICAgICAgICAgICAgICAgICAgICAgICAgICAgICAg JZMcDVJiEYGyLXSuCT1EDIBnOVZcTBNxJLEaVRQoWUGaPSNfUAMfCNYgWRDaYUYfFTRiLVZxUKBhSWWx ICAgICAgICAgICAgICAgICAgICAgICAgICAgICAgIC VdORVjEEDaMSFuYQJwCXCcXRYeBDJfDU3VXEEzSINkNZWwISDaPVWzSPXoPTIgFNRuGZGuSFBrPPEgDK AgICAgICAgICAgICAgICAgICAgICAgICAgICAgICAgICAgICAgICAgICAgICAgICAgICAgICAgICAgIC LeDTKaTC3DRTGaGUWkUOZqVWEkMKYdCECsFCUuHQCy ICAgICAgICAgICAgICAgICAgICAgICAgICAgICAgICAgICAgICAgICAgICAgICAgICAgICAgICAgICAg BXQcSZNmLHSoTCLuXWTmEA6AIMJpHZCfYWMfHINsJPOzTXHlPXZaPHWrKWYwSPFbQJNvZRVvDXEpGXAw ICAgICAgICAgICAgICAgICAgICAgICAgICAgICAgIC QhJMLyTMNxHCIjOVPxKJSzHGRgRFYtWZSkNR9FRX43hJJfw5P6DLQoGP0mzhv/Hz6DFZwwhiCctEFpKN 5NMaKsAG9bfc8DUlRjXN3soy2GYAaMFpBbY3S8dMUiVXUlCICLZhMuM60kJKnrPv80HGcvWFTtEaVkVO j6Rk5KCcCqJ2klTJAoAgB0ASWdQpQ3WOBiRzUiZMwp YH8Mb2GztKUmAVu+Rn9UUH7pw6JlDCpbQYRxFQ0cfg6FJVcERoQhH9PuolY1ZNVjOSRkOr8LLPDsFVLe pPLcAbRbBWUZUvWmA2ItlK02IFCBKj0+UCryxfSxIzwVOeRnTMAdr0MgZVp1UD0HDVCmTCk1vZRdVTPt M1Qli1RcUb50GBMtWvjxBVjkzATiABfkPbUqYPDnaG KedxsmQMCkMQMjFF8cVr3qUHPeNSAiHxKeVJIHGH1ZOCGyOWCgmLFsKPXqEKPIWW7SSXttRWK3GVVqvy QvxXOtLRriJI2DRUDcmqTfIiCpLRVBFCs+Ri2XZN5dg9WhZQigCzWqQN6rhx6BFSaJHySnO3X9uGRsB6 A8IQvgVa6DDLGzERRiABjkTTLPJFchHS3ZRJ6qiqM2 DJ3UiZOuNPFfKCHxzDQqISx6P12roHQeTPqoUJ3VGUZ+Mariaa+Zl7KHGObXLUjPMBzElRpXYNUXjEnV6Ys Z8RJg1SdW0IgHI19kBxmwkVsBUznDP6SVW2zHVYaYXSGWN7XoXMdgI3vrkGhGFEzWNDLNwMaS36kbBSn HULbBAFjZLOjVp4INOJbU8DghqVteHsxpfTbDOSmZS GHKN2PWOzsxuLctPGzaPejXJ13aHmlTV4FJb1AJaHfXC6jyv7KuXOzBg5XYZDaQM2JQMEdZMVcVUFqCA B4MVOyReBwNNeuVAWnMGSrJOD2FNJaWJNlHM7SOiBiEVLiOnH4TZIfOHYcILAivs5KLETvCFOyMQP9EK BkBPAkVUZgUFkhMXPmQFDbLHY7JXRuTFVuQD6HWwZb ADLqJIQ6NBEbMARfYMSsip9NZVUcBFZfBFReMHObIAPnIFEvULeaTHEeKJI5IyBxFSEbLEYmRW7QHsTs SEFrYQm2DsvmMYYwIUIowl4SXOMdVJCkXDHbUgUoTHLdLIXyKSnjRNSfWES8MfJiGELoOXWmOY6LNdFc QUZmOYy2PWTkDWEwWPCcoo8KMIUgVAZhESy9EpWuAH BlZBYuUVjeIEUaKDD1NBT4BJGoUNFuPT9UBpTwCOAmCKYwDIYmTXMiMJRaqx7EGKPuFXKiALQlPkZaYM TyXHBnQHzsTFLhZYIjGSAzLWZaKLHaUY3FQtDsHYAiKvTmFaLcQOGtLYJbqr6QWGYnACOcRcC5NtGkEB FtQJYjODwxZZJuTEKvZOZ1XVRaSXIhUW5CDzLdNKMk YlT3JUboRMUiXSSvzi1QMEDrDYCyCVG0WsWhOFLrWVMeRFvlBQPsASY9ShR9XQPyCVDaHS5LDiInQHPt VxU5OGkoIUIfGLDwla0QxUXzuBnkja4VUEnAQr4PuKmwOFU5IJlnXq2ifZGeEvUaIDZNVb1XsdHoRIWh CSMWPJfqRFZyUZY0RtFoLuVwLoC6YZJ7ABHxZJo7MB TlPIE1CbP5ZPdjDgU4JBNkUpDmHELiAtlkJWZoZjMwATc2S4AuDVmiGDsvW3N+EW2vOKk+Pg6Pa0Gmsk E0bcItGNmtMOfjAj2HTVRFI0RTNa== ID Date Data Source [id number] 10/01/2019 11:26:00 AM [facility] Molecular Genetics ReportName: CINDI VALDIVIA LMRN: [id number] Number: [id number] Date: 09/17/2019 00:00Received Date: 09/17/2019 16:23Physician(s): IVA MELCHOR GLORIA JSpecana(s) ReceivedA: [facility]reat[facility] CancerTYPE OF STUDY: BRCA1 & BRCA2 STAT Panel, Multi-Cancer Panel, PancreaticCancer Panel, and 9 individual genesCOMMENTS: A peripheral blood [place] [id number] for analysis. Please see attached report.jmp /ab Electronically Signed By Chava Nunes, Ph.D., MARTINE BURGOS, [facility] MolecularGeneticist 10/01/2019 11:26:53 Name Value Range Interpretation Code Description Data Aby rce(s) Supporting Document(s) ID Date Data Source [id number] 09/10/2019 07:22:36 PM [facility] Name Value Range Interpretation Code Description Data Aby rce(s) Supporting Document(s) Progress Note [facility] MNZNXo3rHfGNRuFl91/QNPsnEZWyg7EmMMzuPYd2IMnwADAtB5IpITG6kS8sSJN3CWtHCfZoYkLkIIGk lbm [file] YJB9EnYsIBVjILv+AL3eNEj+Ix1Po0McbmQ1suQpEPn3HXH6MGyzRGXIOw8Y ID Date Data Source [id number] 09/10/2019 06:37:41 PM [facility] Name Value Range Interpretation Code Description Data Aby e(s) Supporting Document(s) History and Physical [facility] ITTMNe1eBbCXXaOq06/ORSmjVQOtm7IrATllLUq1OMwyJNLdX9VjCKY0sD4lZLS1HEpOVyAxCwFnQFRi lbm [file] AgICAgICAgICAgICAgICAgICAgICAgICAgICAgICAg SNIeCXMzXJDaWM9PSYOsWWIpTNGrDLLgVHCvNOUiTBJtFJAvUCFeWGGaOGKlZFUbZAHtJBIjQTXaXCPv PVDcVFMzBNArBPExEYTyKSOwIJGtZZTrTNAfVPJxLEWxYSLmETAyFKVcZKPuQGVaNDMwZT6YNCRtYVLo ICAgICAgICAgICAgICAgICAgICAgICAgICAgICAgIC AgICAgICAgICAgICAgICAgICAgICAgICAgICAgICAgICAgICAgICAgICAgICAgICAgICAgICAgICAgIC KlLF8TOTSeXQCkZJGyQFKwDBUsSCTdABXpVJSgXNWnLGFcOAMlZGWiBMHfFDRfVGVaBBHlYJBqXJHqIS AgICAgICAgICAgICAgICAgICAgICAgICAgICAgICAg RUOqMJXhRNOtKPTqGL6XHBQkQKIsOSVtIWNvZQAjZIYiMPWrUSUoTKQhHFCvNOTvJSJbGKJbBWLtBQBx TKWgIDHkCUIsLVZeGUMxVBObDPLwUCKzCELuOFWyBDGzIVWwBLZtSIFqJNSqSHNnCTCzFIChEK3EBGVz ICAgICAgICAgICAgICAgICAgICAgICAgICAgICAgIC AgICAgICAgICAgICAgICAgICAgICAgICAgICAgICAgICAgICAgICAgICAgICAgICAgICAgICAgICAgIC WfOQYxTO8ZZQZmCEZjAMZkPISbCBOmJGUdVZNeWQWhGMFdSLXkUZHqLKKgTUDmLBMrNTRkVMMkJSTxGT AgICAgICAgICAgICAgICAgICAgICAgICAgICAgICAg UDFsCNCsNRTeGIYlICZkRU3RNFUwOCDzAZNpZMLzAHRlOOFcIQGgKDNsPDJyLYOrKEYdVGIoUWTlXOJb CBQbFZMgLYBxLHLqQENjVMTnZPDyKERvGVCwJJCiUDYyCEZbVBDdOENgLFAzUUYvPCShJXRpLLKgFU9C ICAgICAgICAgICAgICAgICAgICAgICAgICAgICAgIC AgICAgICAgICAgICAgICAgICAgICAgICAgICAgICAgICAgICAgICAgICAgICAgICAgICAgICAgICAgIC DfEAFxSORyCV8VYXObBXMdFCPdSHBfYQYeHKLxGHWxGFUgMBUaVMOiDAOeZGLkBTWvFXUsFAUrAFLkZM AgICAgICAgICAgICAgICAgICAgICAgICAgICAgICAg OYAiAOZyTIEcEMFeUNNqEYKaKF1TNV02rLMfl8H8AHOeLC9wmmq/Fj8LWAimrqDzmKYnBD4OWgNjMO4x dq9DGhPtLB2aid4ZCJqUViEoG4A9zGWmLRMdBQDCVxXuN95eWBlwKr85QWqiQWPyJzTsOMa0Ru1SPaPf V5cyOOKtKwJ9LCVdZvE9WGCpKbBkEAkiAQ8Bg6ImoF AyDQo+Ef6GJT6jx1MnBWwiJoTyLK9jxk1VJCxHPhVgI7UforC8CIA0JIZtGh5CPQDeSTNmxLQrSZSmXB CBDoKbO3KtaH66DIGWSk7+RUwrmiOxHsjCHpA7VNSqc8DtPTe0MO7JEVLoMTu8sJUjGAYYFCH7OK76jV NbnJZoRT8pIFGwTuuoRINuUDJlUJ6lUO5kZVDmZDG2 ZjW0CYLOQI2IAGUdDFNjhSTnZKBhRTLXCC4ETDygAAD3SDEzthCbgHDzCAdtXH6CTOAhyeDwCdkkWFOI DQo+Wh5DXX9mh0YwXLtgZBFaHG3mqj0PDVbGJzOiC1X2uVYoH4U7JBgjEf5PEIZrORXkHaKfEIRMBZuk YL8CQZ5tabD9XI6MfMFtTVIfGVTfbYMgUQz9N52xzR XhIXopOV8ENPI+Mariaa+Gt7ITABeBEKhTGBnEdWpACXTDnHnJ9VwK1QHo7VkP3UvXQ52cZjspzRrYOssTS 7MKC1cKRWhXXSXLL8KzSEntX7vtrNbNbZzAGBHDvFnH15ixJVyUXQxGST6PZScXz0RUVLzL4NqeyXtrF xtseGeWOEqYCZQCL5DWWmnhzGtvNKtjFecYJ09qPwg IJ5AQi2STtWuMJ0qap5VeRIkCr3OCLZtHX3HPTVvVEChQVVpKTC4QFVsVwDlAHszZJYdBYSqISL0KHQd DNLeWR7NUpShOJDuAjH4FeZlULNaUDOgim1XJIOaQGAaHPXxKhZdRFTpLKIhJSjzNXPsOFBpUCK9GQCg ACNhNJ3PPwZnKPGsMBCuMMRhVLBlUDPlme0HHJQjTS YuCzLxPwVyZUEaHEVrAGasGHTjLOE7GeSvEYVjNXQoYC4MJxDkCYYjHSG3WDafNWBwRDDywk8SYPWiMC OqFwf2XaYiNNLeQXBkCZbfKSAuTRK6FKIiQAAnUUPaFD7DLbVlCCHbUHdpNBKcGQVoCBQglg2CLYQjIS AzFLIdYcDnMJUsDRVrPAbjUCWgJHM2MdP8MBNcUPCd ZR5TLzZxJAWkRZx9CIBkDRLmGTExyk8LJWPwYAPlSXX1TwDhZYKjDHPcTAjfENAhAEL2PvG5RKIvFOIr TW8WPfIpDVJcIRt5XaArNNJbFOWcja2MXNSgWEEoGJSrJpJiTLLtSGLvMSfsGAOoZPWsZQE8YTQwVOPr KY1HElJtCSYlByO5OKQxTOYcXFSvyk2PPTYeKCFgTR h0WhVwOXTlEXLaFWqzBXSzMSFuBDV2LQEpHXWiFE1TYnCeBBSjUkLnFkUfDBGzABJjgb7YJOFpQPCfHd E1QFLyBINeHRDnSNdrCXUwRNLcKKW5UZRmSWBwDX6LNoYjWISkRaN0GeBiXBHfSJRehg0SVWQhQLZgNO EiJnMgAULpDNDxUZyoYFEuAEZ5Nyh2BCEiVRHiEN2Q GiDxJWWdYzR6XgXhCYLbQYNabv6YqRIqxCtxsz1RIQoYVu9JsOsmULIaDEqiVm3rkBVfHXTkOUKUJk8T kpCpCVOaVNFZMJycOINbKZZpVtJ4MuRkPWSxAdFqW5IcCuP6OwH7LmQpKeltJVC4TrO8JGS8JTLaFPGn DfXiQ5U2ImZ3NHKtFmS6ETUnXEDoWpr+JQ0jEBf+Nr5Xe7QznqL0omPtPDrxAGv7GZ9IESKSL7QHMm== ID Date Data Source [id number] 09/14/2019 04:12:00 PM [facility] CYTOPATHOLOGY REPORTName: MALIK VALDIVIA LMRN: [id number] Number: [id number] Date: 09/10/2019 00:00Received Date: [...] developed and their performance characteristics determined by [facility] Pathololgy department. They have not been cleared or approved by Lily Food and Drug Administration. The FDA has determined that suchclearance or approval is not necessary. Name Value Range Interpretation Code Description Data [facility] rce(s) Supporting Document(s) ID Date Data Source [id number] 09/07/2019 12:58:13 PM [facility] Name Value Range Interpretation Code Description Data [facility](s) Supporting Document(s) Progress Note [facility] EYQAZk1hEaHISdUn59/FAOluWFGpl7PvOHjsNBi2GUqbXCMxE5EwYIH7kZ6nCZN4MOqMHlXgLbUmGHX9 [facility] [file] [id number]/w4ihm1yylU1I99O1g1wtN9NtqaJnI6337/hC15aUZYLgxpzLQ+MzbX2f/return to vendor/S5mHJ [file] /x/coremaker experimental/NKB3U67s16o4630iinC21/S6zdZ+SuP+AeZ6MWmSTJGgl80iOLHTgfyWwzYSzBJ8Frk9wBvbi quJvuXqlEsr+zCPKaVvUtg7iUs41ZsNfccaDwK6eTK YGNchaJmvdauWi0Ro4hSv0MJzhf0SVGB1LzIgb2OB5+NKqVbwpNRmA+kk5bEUxD0l8WLo++wrAzBYXcj Hoo8s9/hs0qoR4FdYH4CW6BypIm3xUhgDCt7luZhSISAqHXYncFAm5/Lu9dxZy9E7+hVEF+gcLfdvmmQ fTrw2eAIhRi0ZE+49/Y0pM4yuxtut47Pey/n9uwfxy Wy6f93qx98hZYhm5NFGX8/5yr4QRjCS5Vy/NfKdpc5DlkECITMDCA9nJry9RqE0+sl44Guk266efrxyb 2I3iy5BT0xj/17ndM7/0nnpg5njsEQTl03S2T2lWu/Out+9og/KKliGiCumRDFSC1n87T3yPTI2D/gYF tV93TRqWLSkJY/N4XfFsBCu1dcZc7WNyEM8kgZ/Jayy lk+OOvfCb3MZEQ+AJfylA1vqRfkHW6rsFW/9W5KRRrZDuX1e1h3czOeIJdHsBSDpnoFCLiRV0ZjYMpmD 8NxvoSG+4UpLy+bvDBFJRJc6zgCG6Y7jr47YtXh/WWL7S+SANJU+096MNiRlY6JlXwMN/Sj85mNSXsc3xR [file] AgICAgICAgICAgICAgICAgICAgICAgICAgICAgICAgICAgICAgICAgICAgICAgICAgICAgICAgICAgIC AgICAgICAgICAgICAgICANCiAgICAgICAgICAgICAgICAgICAgICAgICAgICAgICAgICAgICAgICAgIC AgICAgICAgICAgICAgICAgICAgICAgICAgICAgICAg ICAgICAgICAgICAgICAgICAgICAgICAgICANCiAgICAgICAgICAgICAgICAgICAgICAgICAgICAgICAg ICAgICAgICAgICAgICAgICAgICAgICAgICAgICAgICAgICAgICAgICAgICAgICAgICAgICAgICAgICAg ICAgICAgICANCiAgICAgICAgICAgICAgICAgICAgIC AgICAgICAgICAgICAgICAgICAgICAgICAgICAgICAgICAgICAgICAgICAgICAgICAgICAgICAgICAgIC AgICAgICAgICAgICAgICAgICANCiAgICAgICAgICAgICAgICAgICAgICAgICAgICAgICAgICAgICAgIC AgICAgICAgICAgICAgICAgICAgICAgICAgICAgICAg ICAgICAgICAgICAgICAgICAgICAgICAgICAgICANCiAgICAgICAgICAgICAgICAgICAgICAgICAgICAg ICAgICAgICAgICAgICAgICAgICAgICAgICAgICAgICAgICAgICAgICAgICAgICAgICAgICAgICAgICAg ICAgICAgICAgICANCiAgICAgICAgICAgICAgICAgIC AgICAgICAgICAgICAgICAgICAgICAgICAgICAgICAgICAgICAgICAgICAgICAgICAgICAgICAgICAgIC AgICAgICAgICAgICAgICAgICAgICANCiAgICAgICAgICAgICAgICAgICAgICAgICAgICAgICAgICAgIC AgICAgICAgICAgICAgICAgICAgICAgICAgICAgICAg ICAgICAgICAgICAgICAgICAgICAgICAgICAgICAgICANCiAgICAgICAgICAgICAgICAgICAgICAgICAg ICAgICAgICAgICAgICAgICAgICAgICAgICAgICAgICAgICAgICAgICAgICAgICAgICAgICAgICAgICAg ICAgICAgICAgICAgICANCiAgICAgICAgICAgICAgIC AgICAgICAgICAgICAgICAgICAgICAgICAgICAgICAgICAgICAgICAgICAgICAgICAgICAgICAgICAgIC AgICAgICAgICAgICAgICAgICAgICAgICANCjw/zHBzW7nobNImcwE1V6sxRi1NQe0YFI8zo8QuKRBrMN pelwZkFwgYLlSuMTHyLnuYLwm3BDgdZL9GtMNoR5Uu D5OeSNacYJ4HSTQxBITyyCEgUUGeANYqEpY6PZGpLUnaIN1EgJDcJJizBCHxVBXkRiGvBAXxUPMbQPHx KTNgVROASD5HQpQhQ2AatO50FUDSQx1+AIoqtqQdMmlREsHrPCCyv4BtYSs7CC0LPXKxNuzvl2PaUzZo RHGSYKdsVT8LBYB8XJRgVTQkPk9MKHXeR978ktTuVP 1WVa1PHxKkWW1bxk5YEaXuWIUqTgjRMrg5OSmzGV4KbBAtHLdMux7cobLukvGJz3WylvHncQJVlpGrOH ofHwlvxPApdTOxXGENWRDqnJYmWzN3XkXjKuCaKCU6HNGaPV4tGMouUG2UINW3ZPcuAUSfMXGuT6gBFn FhSSSgAsJxzCgcET8OHvWuE1AvusZebUGiVmEwBVXS Cj4+JNcravVqOsdZVuH2TKIqt9GjNPh4OR7APJYzRYahYA6SPENtgD4hCLhdOX7HEuBgOSOsHFNQYwGo H77xuFXcCEi1B7EqByMdFXKzOkkwECKyBFnvAhFdMOZwSqEeCUkgCZ1+ID4+KTnzSG2UBBnbyzIyVVHk Hw0YPFDaNHJvWF9pHUIaUROyK2D5iBmlPROJDwKmH6 jezbryWL2gUPUsW691aHnprfZgMWMiSDQgIz5KXEVwGMP0LAGckXMqKqItZWEFNYcqPT0PkXFyBYO3kX 8uHNsnJXGzPKFbP4tGNhYueRkfDI55cRijwjTaoFIiIGj+Ro7KNZ0nd8GaYUd0atSvYSmhRWV9RZkiII CuFNMwRCVuEMI6IHT3UUJDTjFmSNXtKUGiNIlnZTYf XKPllu8LZBCpBWB2QSuyJOHoGRJhXREcKJahALKeWUY7EJL8MCDrJOSmHN0ZGgVqGGOpZWAfWKxhIVUu UYSrjc5KKLItQNHjZjD0OVVcUTNkVYUaQSewUNGqSANnKIFwIIFmYYVgXY7XLjVrWWOlFOG6RYQaKJPo ABJenx1UVXKxIPNbBxR3ETNgVTKzFMWjWZsbUSIeSS G8HPIqJNDoYDAuAX8STvAbBGYrFLa5VueaVXDyFJAacw7MWZZsHJHmREdvIXUuPAKcCTQmKJhiLWNrEX LeVXF9YTJvTRPfEV1TGzHtBLCkESP3JDLaSNRrCHYlkz4FNQGjPJQgAaS1ShTjABFrHFQzKCvdPJCqHJ HsYyr7UPWcJMIhTW3RRoEjDLEiDTRuWxAlWGHsLSLs yy2WWKMgCNYtRaAnDsCwZZLeEKUrWEzeHOJeWZXhJlD0JMUfNRGgQN7JYfCtTKXtSAS9SkraCIFlIQPs jy2LQMDqRIO8RFZ4WUGrMIKdPCLpKPqgPFJeAVG7WHQ9LMCbKNMvVD2EAfAkKKHzHWTdNYdoRZJlBMBy yx1HQLVxRGV7SpSqTzVtETXyKRHoBRyzCIXjXXB9Fc Q6SPTwTHPfNW2PIfNpPZJwDWa3QeMpTBSjZSAacl2TUAXuHKO1ArdjHkNiUMQeXTNwCBtrQLWdAEI5GE kiCBUsPUOiEB4EVyBvHSNdEZPdEaurNIHdIPDtnd0TLHZaHCH4CbEoTjDoIYZwTBIkXZyxRKFoXHE2Le KyBYAqNLWaTM5NBmYnCXZaQsOzEIPbLRBjARLatf2O OMQdPSQ3JsA5WuMyOIWeTCVnTWjnNKYoIDW7ZwG6IFNtSFVaVP9TXkKnHYSoSzm2DvVeWIBjQXUvtg1K fXYnpProuj2UVYxJNl0HnKxjPWH5MAvyHr7hsCPsAIBmLFGABn5LhwVcMOGwZYGNGFhxXVGvHIDrXcIp IxVeT0D2ZyWsJmQ5CqXaXaVyAEJyHsBjYRP2SbG3C8 VxMPMtAAZqLggnRTTbEcIpHYWvEVP0NEB2F2K8FOj+CX5sDMd+Mk3Jp7XlrcE7lrSiONigDcnqRKvFLn GbZP9RSGa= ID Date Data Source [id number] 09/07/2019 01:51:48 PM [facility] Name Value Range Interpretation Code Description Data Aby rce(s) Supporting Document(s) Leukocytes [#/volume] in Blood by Automated count 6.1 10*3/uL 4-10 [facility] Erythrocytes [#/volume] in Blood by Automated count 3.89 10*6/uL 4.1- 5.3 L [facility] Hemoglobin [Mass/volume] in Blood 11.8 g/dL 11.5-15.5 [facility] Hematocrit [Volume Fraction] of Blood by Automated count 36.0 % 3 6-45 [facility] Erythrocyte mean corpuscular volume [Entitic volume] by Auto mated count 92.6 fL 80-96 [facility] Erythrocyte mean corpuscular hemoglobin [Entitic mass] by Automated count 30.2 pg 27-33 [facility] Erythrocyte mean corpuscular hemoglobin concentration [Mass/volume] by Automated count 32.7 g/dL 32.0-36.0 [facility] Erythrocyte distribution width [Ratio] by Automated count 12.8 % 11.5-14.5 [facility] Platelets [#/volume] in Blood by Automated count 285 10*3/uL 150-400 [facility] ID Date Data Source [id number] 09/07/2019 02:25:49 PM [facility] Name Value Range Interpretation Code Description Data Aby rce(s) Supporting Document(s) Albumin [Mass/volume] in Serum or Plasma by Bromocresol green (BCG) dye binding method 4.2 g/dL 3.5-5.2 [facility] Bilirubin.total [Mass/volume] in Serum or Plasma 0.5 mg/dL <1.2 [facility] Calcium [Mass/volume] in Serum or Plasma 9.1 mg/dL 8.8-10.2 [facility] Chloride [Moles/volume] in Serum or Plasma 108 mmol/L 98-107 H [facility] Creatinine [Mass/volume] in Serum or Plasma 0.58 mg/dL 0.50-0.90 [facility] Glucose [Mass/volume] in Serum or Plasma 109 mg/dL 70-140 [facility] Alkaline phosphatase [Enzymatic activity/volume] in Serum or Plasma 473 U/L 35-104 [facility] Potassium [Moles/volume] in Serum or Plasma 3.6 mmol/L 3.4-5.1 [facility] Protein [Mass/volume] in Serum or Plasma 6.6 g/dL 6.4-8.3 [facility] Sodium [Moles/volume] in Serum or Plasma 144 mmol/L 136-145 [facility] Aspartate aminotransferase [Enzymatic activity/volume] in Serum or Plasma 203 U/L <32 [facility] Urea nitrogen [Mass/volume] in Serum or Plasma 7 mg/dL 8-23 L [facility] Osmolality of Serum or Plasma by calculation 297 mosm/kg 275-300 [facility] Creatinine/Urea nitrogen [Mass Ratio] in Serum or Plasma 12 [facility] Bicarbonate [Moles/volume] in Serum 26 mmol/L 22-29 [facility] Alanine aminotransferase [Enzymatic activity/volume] in Seru m or Plasma 173 U/L <33 [facility] Anion gap 3 in Serum or Plasma 10 mmol/L 8-15 [facility] Albumin/Globulin [Mass Ratio] in Serum or Plasma 1.8 [facility] Glomerular filtration rate/1.73 sq M pre dicted among non-blacks [Volume Rate/Area] in Serum or Plasma by Creatinine-based formula (MDRD) >6 0 [facility] Glomerular filtration rate/1.73 sq M pre dicted among blacks [Volume Rate/Area] in Serum or Plasma by Creatinine-based formula (MDRD) >60 [facility] ID Date Data Source [id number] 09/07/2019 03:24:59 PM [facility] Name Value Range Interpretation Code Description Data Aby rce(s) Supporting Document(s) Cancer Ag 19-9 [Units/volume] in Serum or Plasma 614.0 U/mL <35.0 H [facility] This test uses [employer] CA 19-9 electrochem iluminescent immunoassay. Results obtained with different test methods or kits cannot be used interchangeably. CA 19-9 is useful in monitoring pancreatic, hepatobiliary, gastric, hepatocelllular, and colorectal cancer. CA 19-9 value regardless of level, should not be interpreted as absolute evidence of the presence or absence of malignant disease. ID Date Data Source [id number] 09/07/2019 03:24:59 PM EST [facility] Name Value Range Interpretation Code Description Data Aby rce(s) Supporting Document(s) Carcinoembryonic Ag [Mass/volume] in Serum or Plasma 5.0 ng/ml <3.4 [facility] Levels of CEA should not be interpreted as absoulute evidence of the presence or absence of disease. It should not be used as a screening test for Cancer. CEA values obtained using different methodologies cannot be used interchangeably. This method is manufactured by [employer] and is an electrochemiluminesence immunoassay. ID Date Data Source [id number] 08/30/2019 03:58:00 AM EST [facility] Name Value Range Interpretation Code Description Data Aby rce(s) Supporting Document(s) Reflex Urine Culture FULL REPORT IN L <SEE NOTE> Normal (applies to non- numeric results) [facility] ([facility]) FULL REPORT IN LAB NOTES (eCW and [facility] ). SPECIMEN APPEARS CONTAMINATED ID Date Data Source [id number] 08/30/2019 03:58:00 AM EST [facility] ([facility]) Name Value Range Interpretation Code Description Data Aby rce(s) Supporting Document(s) Appearance, Urine RFX CLEAR Normal (applies to non-nu meric results) [facility] ([facility]) Color, Urine RFX YELLOW Normal (applies to non-numeric results) [facility] ([facility]) PH,Urine RFX 5.0 units 5.0-9.0 Normal (applies to non-numeric res ults) [facility] Specific [place] Ur Auto RFX >1.060 1.002-1.035 Above high normal [facility] Glucose, Urine (Ua) Auto RFX NEGATIVE mg/dL Nor mal (applies to non-numeric results) [facility] ([facility]) Protein, Urine Auto RFX NEGATIVE mg/dL Normal ( applies to non-numeric results) [facility] ([facility]) Ketone, Urine Auto RFX TRACE mg/dL Above high normal [facility] ([facility]) Nitrite, Urine Auto RFX NEGATIVE Normal (applies to non- numeric results) [facility] ([facility]) Urobilinogen, Urine Auto RFX 0.2 mg/dL 0.0-2.0 Nor mal (applies to non-numeric results) [facility] ([facility]) Bilirubin, Urine Auto RFX NEGATIVE Normal (applies to no n-numeric results) [facility] Blood, Urine Blood RFX NEGATIVE Normal (applies to non-n umeric results) [facility] ([facility]) WBC, Urine Auto RFX 2 /HPF 0-3 Normal (applies to non-nume clarissa results) [facility] Leukocyte Esterase Ur Auto RFX TRACE Above high teodora l [facility] RBC, Urine Auto RFX 3 /HPF 0-3 Normal (applies to non-nume clarissa results) [facility] ([facility]) Bacteria, Urine Auto RFX NEGATIVE Normal (applies to non -numeric results) [facility] Squam Epithelial Cell Ur Aurfx 5 /HPF 0-6 N ormal (applies to non-numeric results) [facility] Mucus, Urine RFX SMALL Normal (applies to non-numeric results) [facility] ([facility]) Hyaline Cast, Urine Auto RFX 0 /LPF 0-1 Normal (appl ies to non-numeric results) [facility] ID Date Data Source [id number] 08/29/2019 10:57:00 PM EST [facility] ([facility]) Name Value Range Interpretation Code Description Data Aby rce(s) Supporting Document(s) Lipase [Enzymatic activity/volume] in Serum or Plasma 409 U/L 73-393 Above high normal [facility] ID Date Data Source [id number] 08/29/2019 10:57:00 PM EST [facility] ([facility]) Name Value Range Interpretation Code Description Data Aby rce(s) Supporting Document(s) Blood Urea Nitrogen 13 mg/dL 7-18 Normal (applies to non-nume clarissa results) [facility] ([facility]) Glucose, Fasting 151 mg/dL 70-100 Above high normal M [facility] ([facility]) Glomerular Filtration Rate > 60.0 Normal (applies to n on-numeric results) [facility] ([facility]) <content>Units are mL/min/1.73 m2</content>
<content></content>
<content>Chronic Kidney Disease Staging per NKF:</content>
<content></content>
<content>Stage I & II GFR >=60 Normal to Mildly Decreased</content>
<content>Stage III GFR 30-59 Moderately Decreased</content>
<content>Stage IV GFR 15-29 Severely Decreased</content>
<content>Stage V GFR <15 Very Little GFR Left</content>
<content>ESRD GFR <15 on OBSTETRICS SCRUB NURSE</content>
<content></content> Creatinine For GFR 0.56 mg/dL 0.55-1.30 Normal (applies to non -numeric results) [facility] ([facility]) Potassium Serum 4.3 meq/L 3.5-5.1 Normal (applies to non-numeric results) [facility] ([facility]) Testing was performed on a SLIGHTLY hemo lyzed specimen. Suggest recollection of specimen for more accurate test results. Chloride Level 112 meq/L 98-107 Above high normal [facility] ([facility]) Sodium Level 142 meq/L 136-145 Normal (applies to non-numeric res ults) [facility] ([facility]) Calcium Level 8.5 mg/dL 8.8-10.2 Below low normal [facility] T ([facility]) Carbon Dioxide Level 22 meq/L 21-32 Normal (applies to non-num grady results) [facility] Anion Gap 8 meq/L 8-16 Normal (applies to non-numeric resul ts) [facility] ID Date Data Source [id number] 08/29/2019 10:57:00 PM EST [facility] ([facility]) Name Value Range Interpretation Code Description Data Aby rce(s) Supporting Document(s) Ast/Sgot 28 U/L 7-37 Normal (applies to non-numeric resul ts) [facility] ([facility]) Alt/SGPT 28 U/L 12-78 Normal (applies to non-numeric resul ts) [facility] ([facility]) Bilirubin,Total 0.4 mg/dL 0.2-1.0 Normal (applies to non-numeric results) [facility] ([facility]) Alkaline Phosphatase 111 U/L 45-117 Normal (applies to non-num grady results) [facility] ([facility]) Bilirubin,Direct < 0.1 mg/dL 0.0-0.2 Normal (applies to non-numeri c results) [facility] ([facility]) Total Protein 6.8 GM/DL 6.4-8.2 Normal (applies to non-numeric re sults) [facility] ([facility]) Albumin 3.6 GM/DL 3.2-5.2 Normal (applies to non-numeric resul ts) [facility] ([facility]) Albumin/Globulin Ratio 1.13 1.00-1.93 Normal (applies to non-numeric results) [facility] ([facility]) ID Date Data Source [id number] 08/29/2019 10:57:00 PM EST [facility] ([facility]) Name Value Range Interpretation Code Description Data Aby rce(s) Supporting Document(s) Red Blood Count 4.27 10 4.00-5.40 Normal (applies to non-numeric results) [facility] ([facility]) Hemoglobin 13.1 g/dL 12.0-15.5 Normal (applies to non-numeric resul ts) [facility] ([facility]) White Blood Count 14.2 10 4.0-10.0 Above high normal [facility] ([facility]) Hematocrit 40.0 % 36.0-47.0 Normal (applies to non-numeric resul ts) [facility] ([facility]) Mean Corpuscular Volume 93.7 fl 80.0-96.0 Normal ( applies to non-numeric results) [facility] ([facility]) Mean Corpuscular Hemoglobin 30.7 pg 27.0-33.0 Norm al (applies to non-numeric results) [facility] ([facility]) Mean Corpuscular HGB Conc 32.8 g/dL 32.0-36.5 Normal (applies to non-numeric results) [facility] ([facility]) Red Cell Distribution Width 11.8 % 11.5-14.5 Norm al (applies to non-numeric results) [facility] ([facility]) Lymph % 9.0 % 24.0-44.0 Below low normal [facility] ( [facility]) Neutrophils % 87.8 % 36.0-66.0 Above high normal [facility] NT ([facility]) Platelet Count, Automated 262 10 150-450 Normal (applies to non-numeric results) [facility] ([facility]) Reagan % 2.8 % 0.0-5.0 Normal (applies to non-numeric resul ts) [facility] ([facility]) Eos % 0.0 % 0.0-3.0 Normal (applies to non-numeric resul ts) [facility] ([facility]) Nucleated Red Blood Cell % 0.0 % 0-0 Normal (applies to n on-numeric results) [facility] ([facility]) Immature Granulocyte % 0.2 % 0-3.0 Normal (applies to non-n umeric results) [facility] ([facility]) Baso % 0.2 % 0.0-1.0 Normal (applies to non-numeric resul ts) [facility] ([facility]) Reagan # 0.4 10 0.0-0.8 Normal (applies to non-numeric resul ts) [facility] ([facility]) Lymph # 1.3 10 1.5-5.0 Below low normal [facility] ( [facility]) Neutrophils # 12.5 10 1.5-8.5 Above high normal [facility] NT ([facility]) Baso # 0.0 10 0.0-0.2 Normal (applies to non-numeric resul ts) [facility] ([facility]) Eos # 0.0 10 0.0-0.5 Normal (applies to non-numeric resul ts) [facility] ([facility]) ID Date Data Source [id number] 08/23/2019 10:51:00 AM EST [facility] ([facility]) Name Value Range Interpretation Code Description Data Aby rce(s) Supporting Document(s) Appearance, Urine RFX HAZY Normal (applies to non-nu meric results) [facility] ([facility]) Color, Urine RFX YELLOW Normal (applies to non-numeric results) [facility] PH,Urine RFX 5.0 units 5.0-9.0 Normal (applies to non-numeric res ults) [facility] Specific [place] Ur Auto RFX 1.011 1.002-1.035 Nor mal (applies to non-numeric results) [facility] Glucose, Urine (Ua) Auto RFX NEGATIVE mg/dL Nor mal (applies to non-numeric results) [facility] Protein, Urine Auto RFX 1+ mg/dL Above high normal [facility] ([facility]) Ketone, Urine Auto RFX NEGATIVE mg/dL Normal (applies to non-numeric results) [facility]) Urobilinogen, Urine Auto RFX 0.2 mg/dL 0.0-2.0 Nor mal (applies to non-numeric results) [facility]) Bilirubin, Urine Auto RFX NEGATIVE Normal (applies to no n-numeric results) [facility] Nitrite, Urine Auto RFX NEGATIVE Normal (applies to non- numeric results) [facility]) WBC, Urine Auto RFX 1 /HPF 0-3 Normal (applies to non-nume clarissa results) [facility] Leukocyte Esterase Ur Auto RFX NEGATIVE N ormal (applies to non-numeric results) [facility] ([facility]) Blood, Urine Blood RFX NEGATIVE Normal (applies to non-n umeric results) [facility] ([facility]) Bacteria, Urine Auto RFX 1+ Above high normal [facility] ([facility]) RBC, Urine Auto RFX 1 /HPF 0-3 Normal (applies to non-nume clarissa results) [facility] Squam Epithelial Cell Ur Aurfx 5 /HPF 0-6 N ormal (applies to non-numeric results) [facility] Mucus, Urine RFX SMALL Normal (applies to non-numeric results) [facility] Hyaline Cast, Urine Auto RFX 0 /LPF 0-1 Normal (appl ies to non-numeric results) [facility] ID Date Data Source [id number] 08/23/2019 10:37:00 AM EST [facility] Name Value Range Interpretation Code Description Data Aby rce(s) Supporting Document(s) White Blood Count 8.6 10 4.0-10.0 Normal (applies to non-numeri c results) [facility] Red Blood Count 4.45 10 4.00-5.40 Normal (applies to non-numeric results) [facility] Hematocrit 42.5 % 36.0-47.0 Normal (applies to non-numeric resul ts) [facility]) Hemoglobin 13.6 g/dL 12.0-15.5 Normal (applies to non-numeric resul ts) [facility] ([facility]) Mean Corpuscular Volume 95.5 fl 80.0-96.0 Normal ( applies to non-numeric results) [facility] ([facility]) Mean Corpuscular HGB Conc 32.0 g/dL 32.0-36.5 Normal (applies to non-numeric results) [facility] ([facility]) Mean Corpuscular Hemoglobin 30.6 pg 27.0-33.0 Norm al (applies to non-numeric results) [facility] ([facility]) Red Cell Distribution Width 11.9 % 11.5-14.5 Norm al (applies to non-numeric results) [facility] ([facility]) Platelet Count, Automated 221 10 150-450 Normal (applies to non-numeric results) [facility] ([facility]) Neutrophils % 65.0 % 36.0-66.0 Normal (applies to non-numeric re sults) [facility] ([facility]) Reagan % 5.3 % 0.0-5.0 Above high normal [facility] ([facility]) Eos % 0.9 % 0.0-3.0 Normal (applies to non-numeric resul ts) [facility] ([facility]) Lymph % 28.2 % 24.0-44.0 Normal (applies to non-numeric resul ts) [facility] ([facility]) Nucleated Red Blood Cell % 0.0 % 0-0 Normal (applies to n on-numeric results) [facility] ([facility]) Baso % 0.4 % 0.0-1.0 Normal (applies to non-numeric resul ts) [facility] ([facility]) Immature Granulocyte % 0.2 % 0-3.0 Normal (applies to non-n umeric results) [facility] ([facility]) Reagan # 0.5 10 0.0-0.8 Normal (applies to non-numeric resul ts) [facility] ([facility]) Neutrophils # 5.6 10 1.5-8.5 Normal (applies to non-numeric re sults) [facility] ([facility]) Lymph # 2.4 10 1.5-5.0 Normal (applies to non-numeric resul ts) [facility] ([facility]) Eos # 0.1 10 0.0-0.5 Normal (applies to non-numeric resul ts) [facility] ([facility]) Baso # 0.0 10 0.0-0.2 Normal (applies to non-numeric resul ts) [facility] ([facility]) ID Date Data Source [id number] 08/23/2019 10:37:00 AM EST [facility] ([facility]) Name Value Range Interpretation Code Description Data Aby rce(s) Supporting Document(s) CK-MB Value Mass 1.9 ng/mL Normal (applies to non-numeric results) [facility] ([facility]) CPK Creatine Phosphokinase 131 U/L 26-192 Teodora l (applies to non-numeric results) [facility] ([facility]) MB/CK Relative Index 1.45 Normal (applies to non-num grady results) [facility] ([facility]) <content>DIAGNOSIS CRITERIA</content>
<content>MMB ng/ml Relative Index (RI)</content>
<content>NON-AMI < or = 5 N/A</content>
<content>OLEA ZONE > 5 < or = 4</content>
<content>AMI > 5 > 4</content>
<content></content> Troponin I < 0.02 ng/mL Normal (applies to non-numeric res ults) [facility] ([facility]) <content>Troponin I Reference Interval f or Siemens [place] LOCI:</content>
<content></content>
<content>99th Percentile= 0.00-0.045 ng/ml</content>
<content></content>
<content>Risk Stratification:</content>
<content><= 0.10 ng/ml Decreased Risk for Adverse Clinical</content>
<content>Events.</content>
<content>0.10-1.50 ng/ml Increased Risk for Adverse Clinical</content>
<content>Events. Evaluation of additional</content>
<content>criterion and/or repeat testing in 2-6</content>
<content>hours is suggested to rule out myocardial</content>
<content>damage.</content>
<content>>= 1.50 ng/ml Indicative of Myocardial Injury.</content>
<content></content> ID Date Data Source [id number] 08/23/2019 10:37:00 AM EST [facility] Name Value Range Interpretation Code Description Data Aby rce(s) Supporting Document(s) Ast/Sgot 19 U/L 7-37 Normal (applies to non-numeric resul ts) [facility] Alt/SGPT 24 U/L 12-78 Normal (applies to non-numeric resul ts) [facility] Alkaline Phosphatase 91 U/L 45-117 Normal (applies to non-num grady results) [facility]) Bilirubin,Total 0.6 mg/dL 0.2-1.0 Normal (applies to non-numeric results) [facility] ([facility]) Bilirubin,Direct 0.2 mg/dL 0.0-0.2 Normal (applies to non-numeric results) [facility] Albumin/Globulin Ratio 1.21 1.00-1.93 Normal (applies to non-numeric results) [facility] ([facility]) Albumin 4.1 GM/DL 3.2-5.2 Normal (applies to non-numeric resul ts) [facility] Total Protein 7.5 GM/DL 6.4-8.2 Normal (applies to non-numeric re sults) [facility] ([facility]) ID Date Data Source [id number] 08/23/2019 10:37:00 AM EST [facility] Name Value Range Interpretation Code Description Data Aby rce(s) Supporting Document(s) Glucose, Fasting 95 mg/dL 70-100 Normal (applies to non-numeric results) [facility]) Creatinine For GFR 0.73 mg/dL 0.55-1.30 Normal (applies to non -numeric results) [facility] Glomerular Filtration Rate > 60.0 Normal (applies to n on-numeric results) [facility] ([facility]) <content>Units are mL/min/1.73 m2</content>
<content></content>
<content>Chronic Kidney Disease Staging per NKF:</content>
<content></content>
<content>Stage I & II GFR >=60 Normal to Mildly Decreased</content>
<content>Stage III GFR 30-59 Moderately Decreased</content>
<content>Stage IV GFR 15-29 Severely Decreased</content>
<content>Stage V GFR <15 Very Little GFR Left</content>
<content>ESRD GFR <15 on OBSTETRICS SCRUB NURSE</content>
<content></content> Blood Urea Nitrogen 11 mg/dL 7-18 Normal (applies to non-nume clarissa results) [facility] ([facility]) Potassium Serum 4.2 meq/L 3.5-5.1 Normal (applies to non-numeric results) [facility] ([facility]) Sodium Level 141 meq/L 136-145 Normal (applies to non-numeric res ults) [facility] ([facility]) Chloride Level 108 meq/L 98-107 Above high normal [facility] ([facility]) Anion Gap 7 meq/L 8-16 Below low normal [facility] Carbon Dioxide Level 26 meq/L 21-32 Normal (applies to non-num grady results) [facility] ([facility]) Calcium Level 9.1 mg/dL 8.8-10.2 Normal (applies to non-numeric re sults) [facility] ID Date Data Source [id number] 08/23/2019 10:37:00 AM EST [facility] ([facility]) Name Value Range Interpretation Code Description Data Aby rce(s) Supporting Document(s) Lipase [Enzymatic activity/volume] in Serum or Plasma 618 U/L 73-393 Above high normal [facility] ([facility]) ID Date Data Source [id number] 07/14/2019 08:19:00 AM EST [facility] ([facility]) Name Value Range Interpretation Code Description Data Aby rce(s) Supporting Document(s) Triglycerides Level 111 mg/dL Normal (applies to non-nume clarissa results) [facility] ([facility]) LDL Cholesterol 59 mg/dL Normal (applies to non-numeric results) [facility] HDL Cholesterol 53 mg/dL Normal (applies to non-numeric results) [facility] Cholesterol Level 134 mg/dL Normal (applies to non-numeri c results) [facility] Non-HDL-C 81 mg/dL Normal (applies to non-numeric resul ts) [facility] ([facility]) Cholesterol Risk Ratio 2.528 Normal (applies to non-n umeric results) [facility] ID Date Data Source [id number] 07/14/2019 08:19:00 AM EST [facility] ([facility]) Name Value Range Interpretation Code Description Data Aby rce(s) Supporting Document(s) Hemoglobin A1c 5.7 % Normal (applies to non-numeric r esults) [facility] REFERENCE RANGES: 4.5-5.6% NORMAL 5.7-6.4% SUGGESTS IMPAIRED GLUCOSE META BOLISM >= 6.5% ABNORMAL Estimated Average Glucose 117 mg/dL 60-110 Above high normal [facility] ID Date Data Source [id number] 07/14/2019 08:19:00 AM EST [facility] ([facility]) Name Value Range Interpretation Code Description Data Aby rce(s) Supporting Document(s) Free T4 0.96 ng/dL 0.76-1.46 Normal (applies to non-numeric resul ts) [facility] Thyroid Stimulating Hormone 2.500 uIU/ML 0.358-3.740 Norm al (applies to non- numeric results) [facility] ID Date Data Source [id number] 07/14/2019 08:19:00 AM EST [facility] ([facility]) Name Value Range Interpretation Code Description Data Aby rce(s) Supporting Document(s) Blood Urea Nitrogen 10 mg/dL 7-18 Normal (applies to non-nume clarissa results) [facility] Creatinine For GFR 0.65 mg/dL 0.55-1.30 Normal (applies to non -numeric results) [facility]) Glucose, Fasting 100 mg/dL 70-100 Normal (applies to non-numeric results) [facility] Potassium Serum 3.6 meq/L 3.5-5.1 Normal (applies to non-numeric results) [facility] Sodium Level 146 meq/L 136-145 Above high normal [facility] ([facility]) Glomerular Filtration Rate > 60.0 Normal (applies to n on-numeric results) [facility] ([facility]) <content>Units are mL/min/1.73 m2</content>
<content></content>
<content>Chronic Kidney Disease Staging per NKF:</content>
<content></content>
<content>Stage I & II GFR >=60 Normal to Mildly Decreased</content>
<content>Stage III GFR 30-59 Moderately Decreased</content>
<content>Stage IV GFR 15-29 Severely Decreased</content>
<content>Stage V GFR <15 Very Little GFR Left</content>
<content>ESRD GFR <15 on OBSTETRICS SCRUB NURSE</content>
<content></content> Carbon Dioxide Level 27 meq/L 21-32 Normal (applies to non-num grady results) [facility] ([facility]) Anion Gap 5 meq/L 8-16 Below low normal [facility] ( [facility]) Chloride Level 114 meq/L 98-107 Above high normal [facility] ([facility]) Calcium Level 8.6 mg/dL 8.8-10.2 Below low normal [facility] ([facility]) Procedure Social History Code Duration Value Status Description Data Source(s ) Alcohol intake 09/22/2019 12:00:00 AM EST Lifetime non-drinker (finding) completed Lifetime non-drinker (finding) [facility] ital Cigarette pack-years 09/22/2019 12:00:00 AM EST UNK [facility] Cigarettes smoked current (pack per day) - Reported 09/22/19 20 12:00:00 AM EST UNK completed [facility] Smoking 09/22/2019 12:00:00 AM EST Former smoker completed Former smoker [facility] Alcohol intake 09/10/2019 12:00:00 AM EST Lifetime non-drinker (finding) completed Lifetime non-drinker (finding) [facility] ital Smoking 09/10/2019 12:00:00 AM EST Former smoker completed Former smoker [facility] Alcohol intake 09/07/2019 12:00:00 AM EST Lifetime non-drinker (finding) completed Lifetime non-drinker (finding) [facility] ital Smoking 09/07/2019 12:00:00 AM EST Former smoker completed Former smoker [facility] Vital Signs ID Date Data Source UNK Name Value Range Interpretation Code Description Data Source(s) [place] body weight 125 [lb_av] 125 [lb_av] [facility] ([facility]) Oxygen saturation in Arterial blood by Pulse oximetry 99 % 99 % [facility] ([facility]) Body temperature 97.6 [degF] 97.6 [degF] [facility] ([facility]) Respiratory rate 18 /min 18 /min [facility] ( [facility]) Heart rate 76 /min 76 /min [facility] ([facility]) Body mass index (BMI) [Ratio] 22.9 kg/m2 22.9 k g/m2 [facility] ([facility]) Body weight 137.38 [lb_av] 137.38 [lb_av] [facility] ([facility]) Body height 65 [in_i] 65 [in_i] [facility] ([facility]) 5'5" Diastolic blood pressure 60 mm[Hg] 60 mm[Hg] [facility] ([facility]) Systolic blood pressure 124 mm[Hg] 124 mm[Hg] M [facility] ([facility]) [place] body weight 125 [lb_av] 125 [lb_av] [facility] ([facility]) Oxygen saturation in Arterial blood by Pulse oximetry 99 % 99 % [facility] ([facility]) Body temperature 97.9 [degF] 97.9 [degF] [facility] ([facility]) Respiratory rate 18 /min 18 /min [facility] ( [facility]) Heart rate 84 /min 84 /min [facility] ([facility]) Body mass index (BMI) [Ratio] 27.1 kg/m2 27.1 k g/m2 [facility] ([facility]) Body weight 163.00 [lb_av] 163.00 [lb_av] [facility] ([facility]) Body height 65 [in_i] 65 [in_i] [facility] ([facility]) 5'5" Diastolic blood pressure 70 mm[Hg] 70 mm[Hg] [facility] ([facility]) Systolic blood pressure 130 mm[Hg] 130 mm[Hg] M [facility] ([facility]) Oxygen saturation in Arterial blood by Pulse oximetry 99 % 99 % [facility] ([facility]) Body temperature 97.6 [degF] 97.6 [degF] [facility] ([facility]) Heart rate 50 /min 50 /min [facility] ([facility]) Body mass index (BMI) [Ratio] 28.3 kg/m2 28.3 k g/m2 [facility] ([facility]) Body weight 170.00 [lb_av] 170.00 [lb_av] [facility] ([facility]) Body height 65 [in_i] 65 [in_i] [facility] 5'5" Diastolic blood pressure 68 mm[Hg] 68 mm[Hg] [facility] ([facility]) Systolic blood pressure 118 mm[Hg] 118 mm[Hg] M [facility] ([facility]) Oxygen saturation in Arterial blood by Pulse oximetry 98 % 98 % [facility] ([facility]) Body temperature 97.8 [degF] 97.8 [degF] [facility] ([facility]) Heart rate 72 /min 72 /min [facility] ([facility]) Body mass index (BMI) [Ratio] 29.7 kg/m2 29.7 k g/m2 [facility] ([facility]) Body weight 178.38 [lb_av] 178.38 [lb_av] [facility] ([facility]) Body height 65 [in_i] 65 [in_i] [facility] ([facility]) 5'5" Diastolic blood pressure 68 mm[Hg] 68 mm[Hg] [facility] ([facility]) Systolic blood pressure 128 mm[Hg] 128 mm[Hg] M [facility] ([facility]) Oxygen saturation in Arterial blood by Pulse oximetry 99 % 99 % [facility] ([facility]) Body temperature 97.7 [degF] 97.7 [degF] [facility] ([facility]) Respiratory rate 18 /min 18 /min [facility] ( [facility]) Heart rate 72 /min 72 /min [facility] ([facility]) Body mass index (BMI) [Ratio] 30.5 kg/m2 30.5 k g/m2 [facility] ([facility]) Body weight 183.38 [lb_av] 183.38 [lb_av] [facility] ([facility]) Body height 65 [in_i] 65 [in_i] [facility] ([facility]) 5'5" Diastolic blood pressure 84 mm[Hg] 84 mm[Hg] [facility] ([facility]) Systolic blood pressure 162 mm[Hg] 162 mm[Hg] M [facility] ([facility]) Oxygen saturation in Arterial blood by Pulse oximetry 97 % 97 % [facility] Body temperature 97.8 [degF] 97.8 [degF] [facility] Respiratory rate 18 /min 18 /min [facility] Heart rate 70 /min 70 /min [facility] ([facility]) Body mass index (BMI) [Ratio] 31.5 kg/m2 31.5 k g/m2 [facility] ([facility]) Body weight 189.38 [lb_av] 189.38 [lb_av] [facility] ([facility]) Body height 65 [in_i] 65 [in_i] [facility] 5'5" Diastolic blood pressure 80 mm[Hg] 80 mm[Hg] [facility] Systolic blood pressure 180 mm[Hg] 180 mm[Hg] [facility] ID Date Data Source [id number] 11/25/2019 04:00:53 PM [facility] Name Value Range Interpretation Code Description Data Source(s) WEIGHT RECORDED 139 lb 139 lb [facility] Body height Measured 65 in 65 in [facility] ID Date Data Source [id number] 09/29/2019 10:06:13 AM [facility] Name Value Range Interpretation Code Description Data Source(s) WEIGHT RECORDED 166 lb 166 lb [facility] Body height Measured 65 in 65 in [facility] ID Date Data Source [id number] 10/04/2019 03:39:06 PM [facility] Name Value Range Interpretation Code Description Data Source(s) WEIGHT RECORDED 166 lb 166 lb [facility] Body height Measured 65 in 65 in [facility] ID Date Data Source [id number] 10/01/2019 11:27:07 AM [facility] Name Value Range Interpretation Code Description Data Source(s) WEIGHT RECORDED 170.8 lb 170.8 lb [facility] Body height Measured 65 in 65 in [facility] ID Date Data Source [id number] 09/18/2019 11:31:00 AM [facility] Name Value Range Interpretation Code Description Data Source(s) WEIGHT RECORDED 170.8 lb 170.8 lb [facility] Body height Measured 65 in 65 in [facility] ID Date Data Source [id number] 09/14/2019 04:13:13 PM [facility] Name Value Range Interpretation Code Description Data Source(s) WEIGHT RECORDED 177 lb 177 lb [facility] Body height Measured 65 in 65 in [facility] ID Date Data Source [id number] 09/17/2019 02:26:44 PM [facility] Value Range Interpretation Code Description Data Source(s) WEIGHT RECORDED 178 lb 178 lb [facility] Body height Measured 65 in 65 in [facility] Patient Treatment Plan of Care Planned Activity Planned Date Details Description Data Source (s) Senna 8.6 MG 06/03/2020 01:00:00 AM EDT N [facility] ([facility]) Lovenox 40 MG/0.4ML 05/30/2020 01:00:00 AM EDT [facility]) MiraLax 17 GM 05/28/2020 01:00:00 AM EDT [facility]) oxyCODONE HCl 5 MG 05/28/2020 01:00:00 AM EDT [facility]) Ondansetron HCl 4 MG 05/28/2020 01:00:00 AM EDT [facility]) Omeprazole 40 MG 05/28/2020 01:00:00 AM EDT [facility]) Loperamide HCl 2 MG 05/28/2020 01:00:00 AM EDT [facility] ([facility]) Levothyroxine Sodium 75 MCG 05/28/2020 01:00:00 AM EDT [facility] ([facility]) Gabapentin 100 MG 05/28/2020 01:00:00 AM EDT [facility] ([facility]) Furosemide 20 MG 05/28/2020 01:00:00 AM EDT [facility] ([facility]) Docusate Sodium 100 MG 05/28/2020 01:00:00 AM EDT [facility] ([facility]) Diclofenac Sodium 1 % 05/28/2020 01:00:00 AM EDT [facility] ([facility]) Aspirin 325 MG 05/28/2020 [facility] Acetaminophen 500 MG 05/28/2020 01:00:00 [facility] Pancrelipase ([id number]-[id number]) 22128 UNIT 05/28/2020 01:00:00 [facility] Lidocaine-Prilocaine 2.5-2.5 % 05/28/2020 01:00:00 [facility] Sucralfate 1 GM 05/28/2020 01:00:00 [facility] Spironolactone 25 MG 05/28/2020 01:00:00 AM EDT [facility] ([facility]) Simethicone 180 MG 05/28/2020 01:00:00 [facility] Senna 8.6 MG 05/28/2020 01:00:00 AM EDT N [facility] ([facility]) Prochlorperazine Maleate 10 MG 05/28/2020 01:00:00 AM EDT [facility] ([facility]) sodium chloride (preservative free) 0.9 % flush 3 mL 020 05:00:00 PM [facility] Amylases [id number] UNT / Endopeptidases 114 000 UNT / Lipase 05687 UNT Delayed Release Oral Capsule 09/17/2019 12:00:00 AM [facility] sodium chloride (preservative free) 0.9 % flush 3 mL 05:00:00 PM [facility] sodium chloride (preservative free) 0.9 % flush 10 mL 09/10/2019 02:10:43 PM [facility] 1 ML heparin sodium, porcine 10 UNT/ML Injection 09/10/2019 02:10:4 3 PM [facility] sodium chloride (preservative free) 0.9 % flush 10 mL 09/10/2019 02:10:43 PM [facility] 1 ML heparin sodium, porcine 100 UNT/ML Injection 09/10/2019 02: 10:43 PM [facility] Amylases 47271 UNT / Endopeptidases 1900 0 UNT / Lipase 6000 UNT Delayed Release Oral Capsule 09/07/2019 12:00:[address] [facility] Acetaminophen 325 MG / Hydrocodone Bitartrate 10 MG Or al Tablet 08/31/2019 12:00:00 AM [facility] Acetaminophen 325 MG / Hydrocodone Bitartrate 7.5 MG O ral Tablet 08/26/2019 12:00:00 AM [facility] Ondansetron 4 MG Disintegrating Oral Tablet 08/23/2019 12:00:00 AM [facility] Levothyroxine Sodium 0.075 MG Oral Tablet 08/18/2019 12:00:00 AM [facility] Lisinopril 30 MG Oral Tablet 08/11/2019 12:00:00 AM [facility] Amlodipine 10 MG Oral Tablet 08/11/2019 12:00:00 AM [facility] Lisinopril 20 MG Oral Tablet 07/18/2019 12:00:00 AM [facility] Oseltamivir 75 MG Oral Capsule 09/18/2018 12:00:00 AM [facility]
[2020-09-10 00:34] LABS: MAGNESIUM LEVEL 1.4 MG/DL (1.8-2.4)
[2020-09-10] MEDS ORDERED: CREO3600 PO (00:35)
[2020-09-10] MEDS ORDERED: VANCOMYCIN HCL 750 MG, VIAL MATE ADAPTER 1 EACH in D5W 250 ML IV ONE (00:45)
[2020-09-10] MEDS ORDERED: MOM 30ML SUSPENSION UDC PO PRN (01:15)
[2020-09-10] MEDS ORDERED: ACETAMINOPHEN TAB 650MG DOSE (2X325MG) PO PRN (01:15)
[2020-09-10] MEDS ORDERED: MAALOX 30 ML SUSP *UDC PO PRN (01:15)
--- NOTE | 2020-09-10 01:19 | IPNPDOC ---
Text Note Date of Service The patient was seen on 09/10/20. NOTE TIME OF SERVICE 110 AM Ms. Heart is a 69-year-old with a history of pancreatic adenocarcinoma, hypothyroidism, GERD, DJD, & CAD who presented w c/o n/v/d and weakness for 3 days about 1 week after her last chemo session. She will be admitted for management of : -neutropenic fever w pancytopenia (ANC 115 & MASCC score is <21 = high risk for poor outcome = in-patient admission for IV abx recommended) -hypokalemia 2/2 GI losses -PE w DVT (Her GI cancer is a contraindication to using a DOAC). - consider Hem/Onc consult () Rest per 's H&P VS,Mackenzie, I+O VS, Mackenzie, I+O Laboratory Tests 09/09/20 19:38 09/09/20 20:40 Vital Signs Date Time Temp Pulse Resp B/P (MAP) Pulse Ox O2 Delivery O2 Flow Rate FiO2 09/09/20 23:49 98.6 09/09/20 23:41 67 17 100 Nasal Cannula 2.0 09/09/20 22:00 113/58 (76) I&O- Last 24 Hours up to 6 AM 09/10/20 06:00 Intake Total 375 ml Balance 375 ml AMAN RUBI MD Sep 10, 2020 01:19
[2020-09-10] MEDS: FILGRASTIM 300 MCG/0.5 ML SYRINGE (J1442 PER 1MCG) SC SCH (02:00)
[2020-09-10] MEDS ORDERED: VANCOMYCIN HCL 500 MG in D5W MINI-BAG PLUS 100 ML IV ONE (02:00)
[2020-09-10 03:24] LABS: RSV AMPLIFICATION NEGATIVE (NEGATIVE)
[2020-09-10] MEDS ORDERED: LORazepam 0.5 MG TAB PO PRN (05:00)
[2020-09-10] MEDS ORDERED: EMLA CREAM 5GM TUBE (LIDOCAINE/PRILOCAINE) TOP SCH (05:00)
--- NOTE | 2020-09-10 05:05 | HPEPDOC ---
[facility] Medical History & Physical Date of Admission Sep 10, 2020 Date of Service: Sep 10, 2020 Primary Care Physician: JUJU BAEZ DO Attending Physician: AMAN RUBI MD History and Physical CHIEF COMPLAINT: Diarrhea HISTORY OF PRESENT ILLNESS: Patient is a 70-year-old female with a past medical history significant for pancreatic adenocarcinoma, stage III, currently on neoadjuvant FOLFIRONOX chemotherapy, GERD, hypothyroidism, degenerative joint disease, coronary artery disease and history of spearmint mesenteric vein thrombosis presented to [facility] emergency department with complaint of nausea, vomiting and diarrhea for 3 days. Patient received her last chemotherapy treatment on Saturday necessarily developed nausea, vomiting and diarrhea. She additionally takes Imodium for diarrhea as well as Zofran for her nausea. She states that it did not get better and she continued to get worse. She stated that she did have some pain in her abdomen. On presentation to the emergency department the patient was found to be vitally stable, although she was febrile. She was found to be neutropenic with absolute neutrophil count 118 cells per microliter. . She received abdominal pelvis CT which demonstrated filling defects in the pulmonary valve branches. The left lower lobe consistent with poor embolism area of hypodensity left Lisette vein axis with a possible thrombus large amount of abdominal pelvic ascites stranding of the abdominal pelvic peritoneum areas of small bowel wall thickening suggestive of enteritis. Hospitalist service was consultative the patient is very further evaluation management PAST MEDICAL HISTORY: 1. Adenocarcinoma of the pancreas stage III diagnosed in August 2019 currently on neoadjuvant FOLFIRONOX chemotherapy 2. GERD 3. Hypothyroidism 4. Degenerative joint disease 5. CAD 6. Superior Mesenteric Vein Thrombosis PAST SURGICAL HISTORY: 1. Hysterectomy 2. Whipple 3. ERCP with sphincterotomy and biliary stent placement SOCIAL HISTORY: Patient lives at home with her and son. She is a former smoker and quit approximately 40 years ago. Denies any IV or illicit drug use FAMILY HISTORY: Patient has a family history positive for cervical cancer, breast cancer, ovarian cancer. She has a niece that has a brain tumor. ALLERGIES: Please see below. REVIEW OF SYSTEMS: CONSTITUTIONAL: Admits to fevers and chills. Denies unintentional weight loss or weight gain. Denies night sweats HEENT:. Denies dysphagia or odynophagia. Denies changes in vision CARDIOVASCULAR: Denies chest pain, palpitations or feelings of the heart racing. RESPIRATORY:. Denies short of breath. Denies wheezing. Denies cough. GASTROINTESTINAL:. Admits to abdominal discomfort. Admits to nausea, vomiting, diarrhea. Denies bloody stools. Denies hematemesis. GENITOURINARY:. Denies dysuria, denies increased frequency or urgency. SKIN:. Denies any rashes or lesions. MUSCULOSKELETAL: Admits to full-body weakness but denies any muscle skeletal pain or specific muscle weakness NEUROLOGICAL:. Denies any changes in her gait or speech. PSYCHIATRIC:. Admits to history of depression and anxiety. ENDOCRINE:. Denies heat intolerance. Denies cold intolerance. Denies history of diabetes. HEMATOLOGIC/LYMPHATIC: Denies easy bruising or bleeding. Admits to history of superior mesenteric vein thrombosis. Denies history of pulmonary embolism. HOME MEDICATIONS: Please see below. PHYSICAL EXAMINATION: VITAL SIGNS: Temperature 101.3, pulse 71, respiratory rate 17, blood pressure 113/58, pulse oximetry 95 % on nasal cannula GENERAL APPEARANCE: Patient Is awake, alert, and oriented. She does not appear in any acute distress, alert. She does appear ill. HEENT: Atraumatic. Normocephalic. Eyes are nonicteric. Trachea is midline. M ucous membranes are pink and moist. CARDIOVASCULAR:. Normal S1, S2, regular rate and rhythm. No clicks rubs or murmurs auscultated. LUNGS:. Clear vesicular breath sounds bilaterally slightly decreased in the bases. No wheezes rhonchi or rales. Symmetric chest expansion. No sensory muscle use. ABDOMEN:. Soft, distended with a positive fluid shift midline abdominal scar. No palpable masses, no tenderness, no rebound tenderness or guarding. Normoactive bowel sounds. EXTREMITIES: No edema. Full and equal pulses in bilateral upper and lower extremities. NEUROLOGICAL:. No focal neurological deficits. PSYCHIATRIC: Mood and affect appear appropriate. LABORATORY DATA: See below. IMAGING: PROCEDURE INFORMATION: Exam: XR Chest, 1 View Exam date and time: 09/09/2020 8:16 PM Age: 70 years old Clinical indication: Fever; Additional info: Temp TECHNIQUE: Imaging protocol: XR of the chest Views: 1 view. COMPARISON: CT Chest with contrast 08/29/2020 1:19 PM FINDINGS: Tubes, catheters and devices: A right-sided Port-A-Cath is identified, with the catheter tip within the right side of the heart. Lungs: Prominence of the pulmonary vascular markings. Mild opacification at the left lung base, suggestive of of atelectatic change or infiltrate. Pleural spaces: Blunting of the costophrenic angles, left side greater than right, and minimal effusions are considered. Heart/Mediastinum: No cardiomegaly. Vasculature: There is atherosclerotic calcification of the aortic arch. Bones/joints: Osteopenia. IMPRESSION: 1. Prominence of the pulmonary vascular markings. 2. Mild opacification at the left lung base, suggestive of of atelectatic change or infiltrate. Clinical correlation and follow-up radiographs are recommended. 3. Blunting of the costophrenic angles, left side greater than right, and minimal effusions are considered. 4. A right-sided Port-A-Cath is identified, with the catheter tip within the right side of the heart. Electronically signed by: Jeremi Fontaine On 09/09/2020 20:56:36 PM THIS REPORT CONTAINS FINDINGS THAT MAY BE CRITICAL TO PATIENT CARE. The findings were verbally communicated via telephone conference with ISHA WATSON at 11:29 PM EST on 09/09/2020. The findings were acknowledged and understood. Electronically signed by: Jeremi Fontaine On 09/09/2020 23:29:28 PM DD: JEREMI FONTAINE MD 09/09/206 DT: SAMPSON 09/09/[id number] DS: ENRIQUE 09/09/[id number] PROCEDURE INFORMATION: Exam: CT Abdomen And Pelvis With Contrast Exam date and time: 09/09/2020 10:46 PM Age: 70 years old Clinical indication: Fever; Additional info: Diarrhea, fever, h/o pancreatic cancer TECHNIQUE: Imaging protocol: Computed tomography of the abdomen and pelvis with contrast. Radiation optimization: All CT scans at this facility use at least one of these dose optimization techniques: automated exposure control; mA and/or kV adjustment per patient size (includes targeted exams where dose is matched to clinical indication); or iterative reconstruction. Contrast material: ISOVUE 370; Contrast volume: 100 ml; Contrast route: INTRAVENOUS (IV); COMPARISON: CT ABD PELVIS W/O FOL BY WIT 08/29/2020 1:19 PM FINDINGS: Lungs: Within the right middle lobe of the lung, there is a stable 4-5 mm nodule. Liver: There is hypodense fatty infiltration of the liver. Within the left hepatic lobe anteriorly, there is a 1.2 x 0.7 cm hypodense lesion, without significant progression. A metastatic lesion cannot be excluded. Gallbladder and bile ducts: The gallbladder is absent. Pancreas: Postoperative changes are again visualized, with resection of the head of the pancreas. There is volume loss/atrophy of the remaining pancreas, stable compared to the previous exam. Spleen: Unremarkable. No splenomegaly. Adrenal glands: No mass. Kidneys and ureters: Unremarkable as visualized. No hydronephrosis. Stomach and bowel: Areas of small bowel wall thickening are visualized, suggestive of enteritis. The rectum is distended with an air-fluid level. Air-fluid levels are also identified within the colon. The colon measures up to 4.5 cm in diameter. Appendix: The appendix is nondistended. Fluid/ascites is seen adjacent to the appendix. Intraperitoneal space: There is a large amount of abdominal and pelvic ascites again visualized. There is stranding of the abdominal and pelvic peritoneum. Vasculature: Filling defects are identified within pulmonary arterial branches to the left lower lobe, consistent with pulmonary embolism. This has progressed compared to the prior study. There is a focal area of hypodensity within the left common femoral vein, and thrombus cannot be excluded. This can be contributed by the timing injection. Lymph nodes: No enlarged lymph nodes. Urinary bladder: The bladder is incompletely filled, which limits the evaluation. Reproductive: The uterus is absent. Bones/joints: Hypertrophic degenerative changes are noted involving the spine. Soft tissues: Unremarkable. IMPRESSION: 1. Filling defects are identified within pulmonary arterial branches to the left lower lobe, consistent with pulmonary embolism. 2. There is a focal area of hypodensity within the left common femoral vein, and thrombus cannot be excluded. Correlation with venous duplex ultrasound recommended, as clinically indicated. 3. There is a large amount of abdominal and pelvic ascites again visualized. 4. Within the right middle lobe of the lung, there is a stable 4-5 mm nodule. 5. There is hypodense fatty infiltration of the liver. Within the left hepatic lobe anteriorly, there is a 1.2 x 0.7 cm hypodense lesion, without significant progression. A metastatic lesion cannot be excluded. A nonemergent MRI of the abdomen with/without contrast is recommended. 6. Postoperative changes are again visualized, with resection of the head of the pancreas. 7. Areas of small bowel wall thickening are visualized, suggestive of enteritis. 8. The rectum is distended with an air-fluid level. Air-fluid levels are also identified within the colon. 9. There is stranding of the abdominal and pelvic peritoneum. 10. Additional findings described above. Electronically signed by: Jeremi Fontaine On 09/09/2020 23:18:46 PM DD: JEREMI FONTAINE MD 09/09/20 [id number] DT: SAMPSON 09/09/202317 DS: ENRIQUE 09/09/202317 MICROBIOLOGY: Please see below. ASSESSMENT: Patient is a 70-year-old female with a past medical history significant for pancreatic adenocarcinoma stage III, currently on neoadjuvant chemotherapy who presented to the [facility] emergency Department with neutropenic fever, nausea, vomiting and diarrhea. PLAN: 1. Sepsis in the setting of neutropenic fever -Patient presented with a fever of 101.3. Additionally she had a neutropenia with absolute neutrophil on her 18 cells per microliter. Patient had developed nausea and vomiting and diarrhea, which could be secondary to her receiving chemotherapy under could also suggest a possible intra-abdominal infection. -Antibiotics started by hospitalist team. Will start patient on meropenem and vancomycin due to her neutropenic fever. -Will give Neupogen -Blood cultures, urine cultures pending. 2. Left lower lobe pulmonary embolism -Patient had a CT abdomen and pelvis, IV contrast, which haven't to picker feeder a filling defect in the lateral branch of the left lower lobe. Patient herself denies any shortness of breath. She is at risk for clotting disorders given her cancer and chemotherapy treatments. -Patient currently started on a heparin drip. Can likely transition on novel oral anticoagulant on discharge. -Will obtain lower extremity doppler ultrasound 3. Possible left common femoral vein thrombosis -Patient's CT abdomen and pelvis with IV contrast imaging demonstrated a hypodensity left common femoral vein using a possible thrombosis. She does have a pulmonary embolism. Currently she is on a heparin drip. Lower extremity Doppler ultrasounds have been ordered. There is no visible swelling or areas of erythema or Tenderness -Will continue with heparin drip 4. Adenocarcinoma of the pancreas stage III, status post Whipple procedure in April 2020 -Patient currently on neoadjuvant FOLFIRONOX chemotherapy. She does have ascites on physical exam, which is likely malignant in origin. Patient follows with oncology outpatient. Her last chemotherapy was on August 5. Abdominal and pelvic ascites with abdominal and pelvic peritoneal stranding -State. See patient has abdominal and pelvic ascites was on peritoneal stranding lately secondary to malignant ascites. Patient likely has metastatic disease. At this point. She is followed with oncology 6. Nausea, vomiting, diarrhea -Seems to have resolved at this point. Patient is neutropenic with a fever stated previously. We'll give antibiotics for nausea as needed. Her CT scan of the abdomen and pelvis did show some possible enteritis -We'll continue to monitor and treat her symptoms as needed 7. Hypothyroidism -Continue home medications 8. Depression/anxiety -Continue Lexapro 9. DVT prophylaxis -Patient currently on full heparin drip Vital Signs Vital Signs Date Time Temp Pulse Resp B/P (MAP) Pulse Ox O2 Delivery O2 Flow Rate FiO2 09/09/20 23:49 98.6 09/09/20 23:41 67 17 100 Nasal Cannula 2.0 09/09/20 22:00 113/58 (76) Laboratory Data Labs 24H Laboratory Tests 2 09/09/20 19:31: SARS Antigen (LFIA) NEGATIVE 09/09/20 19:38: Anion Gap 12, Glomerular Filtration Rate > 60.0, Calcium Level 7.9L, Magnesium Level 1.4L, Total Bilirubin 0.6, Direct Bilirubin 0.3H, Aspartate Amino Transf (AST/SGOT) 12, Alanine Aminotransferase (ALT/SGPT) 17, Alkaline Phosphatase 117, Total Protein 5.2L, Albumin 2.2L, Albumin/Globulin Ratio 0.7L, Lipase 14L 09/09/20 20:40: Immature Granulocyte % (Auto) 0.0, Neutrophils (%) (Auto) 23.6L, Lymphocytes (%) (Auto) 62.7H, Monocytes (%) (Auto) 13.7H, Eosinophils (%) (Auto) 0.0, Basophils (%) (Auto) 0.0, Neutrophils # (Auto) 0.1L, Lymphocytes # (Auto) 0.3L, Monocytes # (Auto) 0.1, Eosinophils # (Auto) 0.0, Basophils # (Auto) 0.0, Nucleated Red Blood Cells % (auto) 0.0, Immature Platelet Fraction 5.1 09/09/20 23:45: POC Troponin I (Misc) 0.00 09/10/20 00:25: Lactic Acid Level 1.2 09/10/20 00:50: Activated Partial Thromboplast Time 37.2 CBC/BMP Laboratory Tests 09/09/20 19:38 09/09/20 20:40 Microbiology Microbiology 09/10/20 Blood Culture, Received Pending 09/10/20 Blood Culture, Received Pending Home Medications Scheduled Aspirin (Aspirin) 325 Mg Tablet, 325 MG PO DAILY Escitalopram Oxalate (Lexapro) 10 Mg Tablet, 10 MG PO DAILY Levothyroxine Sodium (Synthroid) 88 Mcg Tablet, 88 MCG PO DAILY Lidocaine/Prilocaine (Lidocaine-Prilocaine Cream) 2.5%/2.5% Cream..g., 1 DOSE TOP ASDIRECTED Apply dime size to port area. Do not rub in, cover with saran wrap to protect clothing. Lipase/Protease/Amylase (Creon 36,000 Units Capsule) 1 Each Capsule.dr, 2 CAP PO TID WITH MEALS Omeprazole (Omeprazole) 40 Mg Capsule.dr, 40 MG PO BID Simethicone (Gas Relief) 80 Mg Tab.chew, 80 MG PO BID Scheduled PRN Diphenoxylate HCl/Atropine (Lomotil 2.5-0.025 mg Tablet) 1 Each Tablet, 1 TAB PO Q6H PRN for DIARRHEA Hydrocodone/Acetaminophen (Hydrocodone-Acetamin 10-325 mg) 1 Each Tablet, 1 TAB PO Q6H PRN for PAIN Lipase/Protease/Amylase (Creon 36,000 Units Capsule) 1 Each Capsule.dr, 1 CAP PO DAILY PRN for WITH SNACKS Lorazepam (Ativan) 0.5 Mg Tablet, 0.5 MG PO ASDIRECTED PRN for NAUSEA Take 0.5 mg po q 6 hours prn nausea uncontrolled by Zofran or Compazine Prochlorperazine Maleate (Prochlorperazine Maleate) 10 Mg Tablet, 10 MG PO Q6- 8HP PRN for NAUSEA TAKE 10 MG PO Q6-8 HOURS NEEDED FOR VOMITING DESPITE ONDANSETRON Allergies Coded Allergies: No Known Allergies (Unverified , 08/29/19) A-FIB/CHADSVASC A-FIB History Current/History of A-Fib/PAF?: No GME ATTESTATION GME ATTESTATION My faculty preceptor for this patient encounter was physically present during the encounter and was fully available. All aspects of the patient interview, examination, medical decision making process, and medical care plan development were reviewed and approved by the faculty preceptor. The faculty preceptor is aware and concurs with the plan as stated in the body of this note and will attest to such by his/her cosignature. ATTENDING NOTE TIME OF SERVICE 110 AM Ms. Heart is a 69-year-old with a history of pancreatic adenocarcinoma, hypothyroidism, GERD, DJD, & CAD who presented w c/o n/v/d and weakness for 3 days about 1 week after her last chemo session. She will be admitted for management of : -neutropenic fever w pancytopenia (ANC 115 & MASCC score is <21 = high risk for poor outcome = in-patient admission for IV abx recommended) -hypokalemia 2/2 GI losses - f/u mg & replete K -PE w DVT (Her GI cancer is a contraindication to using a DOAC). - consider Hem/Onc consult () Rest per 's H&P MIREILLE LUGO DO Sep 10, 2020 02:50 AMAN RUBI MD Sep 10, 2020 05:40
[2020-09-10] MEDS ORDERED: POTASSIUM CHLORIDE 10 MEQ SR TABLET PO ONE ×3 (05:45→14:00)
[2020-09-10] MEDS ORDERED: MAG SULF 1GM/100ML (MAG RUN) 1 GM in IV 1 EA IV ONE (05:45)
[2020-09-10] MEDS ORDERED: MEROPENEM INJ 500 MG in IV 1 EA IV SCH (06:00)
[2020-09-10] MEDS: KCL 40MEQ in NS 1000ML 1,000 ML IV SCH ×3 (06:51→21:42)
[2020-09-10] MEDS: MEROPENEM INJ 500 MG in IV 1 EA IV SCH ×3 (06:51→21:42)
--- NOTE | 2020-09-10 07:00 | REPVR ---
PROCEDURE INFORMATION: Exam: US Duplex Lower Extremity Veins, Bilateral Exam date and time: 09/10/2020 6:28 AM Age: 70 years old Clinical indication: Other: Pe TECHNIQUE: Imaging protocol: Real-time duplex ultrasound of the extremities with 2-D song scale, color Doppler flow and spectral waveform analysis with image documentation. Complete exam focused on the bilateral lower extremity veins. COMPARISON: US Duplex, Ext LOWER veins, bilat 12/03/2019 4:18 PM FINDINGS: Right deep veins: Unremarkable. The common femoral, femoral, proximal profunda femoral and popliteal veins are patent without thrombus. Normal Doppler waveforms. Normal compressibility and/or augmentation response. Right superficial veins: Saphenofemoral junction is patent without thrombus. Left deep veins: Eccentric mildly echogenic noncalcified thrombus is seen in the left common femoral vein which demonstrate incomplete coaptation. Blood flow is seen in the left common femoral vein. This was not seen on the prior exam of December 03, 2019. Left superficial veins: Saphenofemoral junction is patent without thrombus. Soft tissues: Unremarkable. IMPRESSION: Left common femoral vein nonocclusive DVT with eccentric echogenic appearance suggesting subacute to chronic clot however this was not seen on duplex of December 03, 2019. Electronically signed by: Eloy Desir On 09/10/2020 07:00:28 AM
[2020-09-10 08:13] LABS: HEMATOCRIT 30.9 % (36.0-47.0); MEAN CORPUSCULAR HEMOGLOBIN 29.3 pg (27.0-33.0); MEAN CORPUSCULAR HGB CONC 32.4 g/dl (32.0-36.5); MEAN CORPUSCULAR VOLUME 90.6 fl (80.0-96.0); RED BLOOD COUNT 3.41 10^6/uL (4.00-5.40)
[2020-09-10 08:18] LABS: PLATELET COUNT, AUTOMATED 36 10^3/uL (150-450)
[2020-09-10] MEDS ORDERED: ENOXAPARIN 60MG/0.6ML SYRINGE (J1650 PER 10MG) SC SCH (09:00)
[2020-09-10 09:02] LABS: BLOOD UREA NITROGEN 12 MG/DL (7-18); CALCIUM LEVEL 7.9 MG/DL (8.8-10.2); CARBON DIOXIDE LEVEL 23 MEQ/L (21-32); CHLORIDE LEVEL 102 MEQ/L (98-107); CREATININE FOR GFR 0.52 MG/DL (0.55-1.30); GLOMERULAR FILTRATION RATE > 60.0 (>39); GLUCOSE, FASTING 123 MG/DL (70-100); POTASSIUM SERUM 3.2 MEQ/L (3.5-5.1); SODIUM LEVEL 138 MEQ/L (136-145)
[2020-09-10] MEDS: SIMETHICONE 80 MG CHEW TAB PO SCH ×2 (09:20→21:42)
[2020-09-10] MEDS: LEVOTHYROXINE 88MCG TABLET (0.088 MG) PO SCH (09:20)
[2020-09-10] MEDS: ESCITALOPRAM OXALATE 10 MG TAB (LEXAPRO) PO SCH (09:20)
--- NOTE | 2020-09-10 09:32 | ECGEPIP ---
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
[2020-09-10] MEDS ORDERED: SODIUM CHLORIDE 0.9% INJ 10 ML SYR IV PRN (10:15)
[2020-09-10 11:43] LABS: CLOSTRIDIUM DIFFICILE PCR NEGATIVE (NEGATIVE)
[2020-09-10 12:56] LABS: BLOOD UREA NITROGEN 11 MG/DL (7-18); CALCIUM LEVEL 7.6 MG/DL (8.8-10.2); CARBON DIOXIDE LEVEL 25 MEQ/L (21-32); CHLORIDE LEVEL 105 MEQ/L (98-107); CREATININE FOR GFR 0.48 MG/DL (0.55-1.30); GLOMERULAR FILTRATION RATE > 60.0 (>39); GLUCOSE, FASTING 122 MG/DL (70-100); POTASSIUM SERUM 3.4 MEQ/L (3.5-5.1); SODIUM LEVEL 139 MEQ/L (136-145)
--- NOTE | 2020-09-10 13:26 | IPNPDOC ---
Date Seen The patient was seen on 09/10/20. Progress Note SUBJECTIVE: Has had several episodes of diarrhea with decreased n/v since admission. Potassium still low, given additinal 30 mEq this AM. Afebrile since initial fever in ED. Feels much improved. Denies SOB, nausea currently, chills, abdominal pain. OBJECTIVE: PHYSICAL EXAMINATION: VITAL SIGNS: Please see below GENERAL APPEARANCE: NAD, resting in bed. AAOx3 HEENT: Atraumatic. Normocephalic. Eyes are nonicteric. Trachea is midline. Mucous mucous membranes CARDIOVASCULAR:. Normal S1, S2, regular rate and rhythm. No clicks rubs or murmurs auscultated. LUNGS: CTAB, no W/R/R CHEST: Port right upper chest ABDOMEN:. Soft, nondistended, no tenderness, no rebound tenderness or guarding. Normoactive bowel sounds. EXTREMITIES: No edema. Full and equal pulses in bilateral upper and lower e xtremities. NEUROLOGICAL:. No focal neurological deficits. PSYCHIATRIC: Mood and affect appear appropriate. LABORATORY DATA: See below. IMAGING: LE doppler b/l: Left common femoral vein nonocclusive DVT with eccentric echogenic appearance suggesting subacute to chronic clot however this was not seen on duplex of December 03, 2019. CXR: 1. Prominence of the pulmonary vascular markings. 2. Mild opacification at the left lung base, suggestive of of atelectatic change or infiltrate. Clinical correlation and follow-up radiographs are recommended. 3. Blunting of the costophrenic angles, left side greater than right, and minimal effusions are considered. 4. A right-sided Port-A-Cath is identified, with the catheter tip within the right side of the heart. CT Abdomen And Pelvis With Contrast: 1. Filling defects are identified within pulmonary arterial branches to the left lower lobe, consistent with pulmonary embolism. 2. There is a focal area of hypodensity within the left common femoral vein, and thrombus cannot be excluded. Correlation with venous duplex ultrasound recommended, as clinically indicated. 3. There is a large amount of abdominal and pelvic ascites again visualized. 4. Within the right middle lobe of the lung, there is a stable 4-5 mm nodule. 5. There is hypodense fatty infiltration of the liver. Within the left hepatic lobe anteriorly, there is a 1.2 x 0.7 cm hypodense lesion, without significant progression. A metastatic lesion cannot be excluded. A nonemergent MRI of the abdomen with/without contrast is recommended. 6. Postoperative changes are again visualized, with resection of the head of the pancreas. 7. Areas of small bowel wall thickening are visualized, suggestive of enteritis. 8. The rectum is distended with an air-fluid level. Air-fluid levels are also identified within the colon. 9. There is stranding of the abdominal and pelvic peritoneum. 10. Additional findings described above. MICROBIOLOGY: GI panel: pending Blood cultures: pending UA +, UCx pending Sputum culture ordered ASSESSMENT: Patient is a 70-year-old female with a past medical history significant for pancreatic adenocarcinoma stage III, currently on neoadjuvant chemotherapy who presented to the [facility] emergency Department with neutropenic fever, nausea, vomiting and diarrhea. PLAN: Neutropenic fever, sepsis 2/2 to enteritis vs. other unidentified infection with immunocompromised state -WBC low but improved from admission, afebrile since admission. ANC 18 -Micro above, all cultures still pending -CXR: could not r/o PNA; however, no chest pain, shortness of breath, cough- f/u procalcitonin -Nontender abd exam so unlikely SBP- bu there is significant ascites -C/w meropenem, vancomycin -Discussed case with Dr. Loza (heme/onc), consulted Left lower lobe pulmonary embolism, Left common femoral vein thrombosis likely 2/2 to hypercoaguable state, malignancy -CT abd/pelvis above -Continue with heparin gtt, regular lab checks with low PLTs -Will obtain lower extremity doppler ultrasound -When closer to d/c discuss with heme/onc what choice of anticoagulant would be Pancytopenia, acute thrombocytopenia likely 2/2 to chemotherapy -Patient received chemo on 08/31/20, at that time PLTs 120 -On admission 35, today PLts slightly incr -Per Dr. Loza, we should see them start to trend upward. If we do not and they trend down, stop heparin gtt and keep off heparin products until PLTs improve to 50. We can discuss [place] filter at that time if we do not wish to restart heparin products. -PT/PTT and CBC Q6H Nausea, vomiting, diarrhea likely 2/2 to either chemotherapy vs. infection -C/w IVFs, zofran PRN -F/u all micro -Abx above Hypokalemia, acute and likely 2/2 to diarrhea, vomiting -KCl 30 mEq this AM -F/u AM labs Adenocarcinoma of the pancreas stage III, status post Whipple procedure in April 2020 -Patient currently on neoadjuvant FOLFIRONOX chemotherapy, last does 08/31/20 -She does have ascites on physical exam, which is likely malignant in origin. -Dr. Mckinnon heme/onc Abdominal and pelvic ascites with abdominal and pelvic peritoneal stranding -If fevers persist or abd pain starts with improvement of n/v/d consider paracentesis and treatment of SBP -Incr ascites on abd/pelvis CT Hypothyroidism -c/w home med Depression/anxiety -Continue Lexapro DVT prophylaxis -lovenox BID DISPOSITION: Heme/onc consulted, case discussed with Dr. Loza today. PT/OT. Plan is home when medically improved. VS, I&O, 24H, Fishbone Vital Signs/I&O Vital Signs Date Time Temp Pulse Resp B/P (MAP) Pulse Ox O2 Delivery O2 Flow Rate FiO2 09/10/20 12:19 98.4 72 18 101/54 (70) 96 Room Air 09/10/20 03:50 2.0 I&O- Last 24 Hours up to 6 AM 09/10/20 05:59 Intake Total 720 ml Output Total 225 ml Balance 495 ml Laboratory Data 24H LABS Laboratory Tests 2 09/09/20 19:31: SARS Antigen (LFIA) NEGATIVE 09/09/20 19:38: Anion Gap 12, Glomerular Filtration Rate > 60.0, Calcium Level 7.9L, Magnesium Level 1.4L, Total Bilirubin 0.6, Direct Bilirubin 0.3H, Aspartate Amino Transf (AST/SGOT) 12, Alanine Aminotransferase (ALT/SGPT) 17, Alkaline Phosphatase 117, Total Protein 5.2L, Albumin 2.2L, Albumin/Globulin Ratio 0.7L, Lipase 14L 09/09/20 20:40: Immature Granulocyte % (Auto) 0.0, Neutrophils (%) (Auto) 23.6L, Lymphocytes (%) (Auto) 62.7H, Monocytes (%) (Auto) 13.7H, Eosinophils (%) (Auto) 0.0, Basophils (%) (Auto) 0.0, Neutrophils # (Auto) 0.1L, Lymphocytes # (Auto) 0.3L, Monocytes # (Auto) 0.1, Eosinophils # (Auto) 0.0, Basophils # (Auto) 0.0, Nucleated Red Blood Cells % (auto) 0.0, Immature Platelet Fraction 5.1 09/09/20 23:45: POC Troponin I (Misc) 0.00 09/10/20 00:25: Lactic Acid Level 1.2 09/10/20 00:50: Activated Partial Thromboplast Time 37.2 09/10/20 02:40: Coronavirus (COVID-19)(PCR) NEGATIVE, Influenza Type A (RT-PCR) NEGATIVE, Influenza Type B (RT-PCR) NEGATIVE, Respiratory Syncytial Virus (PCR) NEGATIVE 09/10/20 04:29: Urine Color YELLOW, Urine Appearance CLEAR, Urine pH 6.0, Urine Specific [place] >1.060H, Urine Protein NEGATIVE, Urine Glucose (UA) NEGATIVE, Urine Ketones TRACEH, Urine Blood NEGATIVE, Urine Nitrite POSITIVEH, Urine Bilirubin NEGATIVE, Urine Urobilinogen 0.2, Urine Leukocyte Esterase NEGATIVE, Urine WBC (Auto) 4H, Urine RBC (Auto) 3, Urine Hyaline Casts (Auto) 0, Urine Bacteria (Auto) NEGATIVE, Urine Squamous Epithelial Cells 4, Urine Mucus (Auto) SMALL, Urine Sperm (Auto) 09/10/20 06:56: Nucleated Red Blood Cells % (auto) 0.0, Activated Partial Thromboplast Time 189.7*H, Anion Gap 13, Glomerular Filtration Rate > 60.0, Calcium Level 7.9L 09/10/20 10:43: Clostridium difficile [id number] PRESUMPTIVE NEGATIVE, Clostridium difficile Toxin (PCR) NEGATIVE 09/10/20 12:06: Anion Gap 9, Glomerular Filtration Rate > 60.0, Calcium Level 7.6L CBC/BMP Laboratory Tests 09/09/20 19:38 09/09/20 20:40 09/10/20 06:56 09/10/20 12:06 Microbiology Microbiology 09/10/20 Campylobacter (PCR), Received Pending 09/10/20 Clostridium difficile Toxin A&B PCR, Received Pending 09/10/20 Plesiomonas shigelloides (PCR), Received Pending 09/10/20 Salmonella (PCR)(ARMIDA), Received Pending 09/10/20 Vibrio Species (PCR), Received Pending 09/10/20 Vibrio Cholerae (PCR), Received Pending 09/10/20 Yersinia enterocolitica (PCR), Received Pending 09/10/20 Enteroaggregative E. coli (PCR), Received Pending 09/10/20 Enteropathogenic E. coli (PCR), Received Pending 09/10/20 Enterotoxigenic E. coli (PCR), Received Pending 09/10/20 E. coli Shiga-like Toxin (PCR), Received Pending 09/10/20 Escherichia coli 0157 (PCR), Received Pending 09/10/20 Enteroinvasive E. coli/Shigella PCR, Received Pending 09/10/20 Cryptosporidium (PCR), Received Pending 09/10/20 Cyclospora cayetanensis (PCR), Received Pending 09/10/20 Entamoeba histolytica (PCR), Received Pending 09/10/20 Giardia lamblia (PCR), Received Pending 09/10/20 Adenovirus Type F 40/41 (PCR), Received Pending 09/10/20 Astrovirus (PCR), Received Pending 09/10/20 Norovirus GI/GII (PCR), Received Pending 09/10/20 Rotavirus A (PCR), Received Pending 09/10/20 Sapovirus I/II/IV/V (PCR), Received Pending 09/10/20 Urine Culture, Received Pending 09/10/20 Blood Culture, Received Pending 09/10/20 Blood Culture, Received Pending Current Medications Current Medications Medications (Trade) Dose Ordered Sig/Jerad Route PRN Reason Start Time Stop Time Status Last Admin Dose Admin Acetaminophen (Tylenol Tab) 650 mg Q4H PRN PO PAIN OR FEVER 09/10/20 01:15 Al Hydrox/Mg Hydrox/Simethicone (Mylanta) 30 ml DAILY PRN PO DYSPEPSIA 09/10/20 01:15 Enoxaparin Sodium (Lovenox) 50 mg Q12H SC 09/10/20 09:00 09/10/20 14:08 DC 09/10/20 11:01 Escitalopram Oxalate (Lexapro) 10 mg DAILY PO 09/10/20 09:00 09/10/20 09:20 Filgrastim (Neupogen) 300 mcg DAILY SC 09/10/20 01:15 09/10/20 02:00 Heparin Sodium (Heparin (Flush)) 500 units ASDIRECTED PRN IV SEE LABEL COMMENTS 09/10/20 10:15 Heparin Sodium (Heparin (Flush)) 500 units DAILY IV 09/11/20 09:00 Heparin Sodium (Porcine) (Heparin) ASDIRECTED PRN IV SEE LABEL COMMENTS 09/10/20 00:30 09/10/20 09:42 DC Heparin Sodium (Porcine) 37498 units/IV Miscellaneous Supplies 250 ml @ 0 mls/hr Q0M IV 09/10/20 00:23 09/10/20 09:42 DC 09/10/20 01:22 Heparin Sodium (Porcine) 32561 units/IV Miscellaneous Supplies 250 ml @ 0 mls/hr Q0M IV 09/10/20 17:00 Home Med (Med Rec Complete!) ASDIRECTED XX 09/10/20 00:45 09/10/20 00:36 DC Levothyroxine Sodium (Synthroid) 88 mcg DAILY PO 09/10/20 09:00 09/10/20 09:20 Lidocaine/ Prilocaine (Emla) APPLY TO PORT ASDIRECTED TOP 09/10/20 05:00 Lorazepam (Ativan) 0.5 mg ASDIRECTED PRN PO NAUSEA 09/10/20 05:00 Magnesium Hydroxide (Milk Of Magnesia) 30 ml DAILY PRN PO CONSTIPATION 09/10/20 01:15 Meropenem 500 mg/ IV Miscellaneous Supplies 50 ml @ 100 mls/hr Q8H IV 09/10/20 06:00 09/10/20 05:25 DC Meropenem 500 mg/ IV Miscellaneous Supplies 50 ml @ 100 mls/hr Q8H IV 09/10/20 06:00 09/10/20 06:51 Non-Formulary Medication (Heparin Iv Rate Change Documentation ml/ Hr) ASDIRECTED XX 09/10/20 00:30 09/10/20 09:42 DC Non-Formulary Medication (Heparin Iv Rate Change Documentation ml/ Hr) ASDIRECTED XX 09/10/20 14:15 09/15/20 14:14 Ondansetron HCl (ZOFRAN INJection) 4 mg Q6H IV 09/10/20 14:00 Potassium Chloride/Sodium Chloride 1,000 ml @ 150 mls/hr Q6H40M IV 1/30/21 05:45 09/10/20 13:16 Potassium Chloride/Sodium Chloride 1,000 ml @ 250 mls/hr Q4H IV 09/09/20 21:45 09/10/20 03:44 DC 09/09/20 21:45 Simethicone (Mylicon) 80 mg BID PO 09/10/20 09:00 09/10/20 09:20 Sodium Chloride (Saline Lock Flush) 10 ml ASDIRECTED PRN IV SEE LABEL COMMENTS 09/10/20 10:15 Sodium Chloride (Saline Lock Flush) 10 ml DAILY IV 09/11/20 09:00 Vancomycin HCl 750 mg/IV Miscellaneous Supplies 1 each/ Dextrose 275 ml @ 270 mls/hr Q12H IV 09/10/20 16:00 Allergies Coded Allergies: No Known Allergies (Unverified , 08/29/19) Rochelle Downey MD Sep 10, 2020 13:26
[2020-09-10 14:03] LABS: MAGNESIUM LEVEL 1.9 MG/DL (1.8-2.4)
[2020-09-10] MEDS: ONDANSETRON 4MG/2ML VIAL IV SCH ×2 (14:45→21:42)
[2020-09-10 14:46] LABS: HEMATOCRIT 25.6 % (36.0-47.0); HEMOGLOBIN 8.6 g/dl (12.0-15.5); MEAN CORPUSCULAR HEMOGLOBIN 30.1 pg (27.0-33.0); MEAN CORPUSCULAR HGB CONC 33.6 g/dl (32.0-36.5); MEAN CORPUSCULAR VOLUME 89.5 fl (80.0-96.0); RED BLOOD COUNT 2.86 10^6/uL (4.00-5.40)
[2020-09-10 14:47] LABS: PLATELET COUNT, AUTOMATED 35 10^3/uL (150-450); WHITE BLOOD COUNT 0.9 10^3/uL (4.0-10.0)
[2020-09-10] MEDS ORDERED: VANCOMYCIN HCL 750 MG, VIAL MATE ADAPTER 1 EACH in D5W 250 ML IV SCH (16:00)
[2020-09-10] MEDS: HEPARIN DRIP 25,000 UNITS in IV 1 EA IV SCH (17:51)
[2020-09-11 00:53] LABS: HEMATOCRIT 24.2 % (36.0-47.0); MEAN CORPUSCULAR HEMOGLOBIN 30.2 pg (27.0-33.0); MEAN CORPUSCULAR HGB CONC 33.1 g/dl (32.0-36.5); MEAN CORPUSCULAR VOLUME 91.3 fl (80.0-96.0); RED BLOOD COUNT 2.65 10^6/uL (4.00-5.40); WHITE BLOOD COUNT 1.5 10^3/uL (4.0-10.0)
[2020-09-11 00:54] LABS: PLATELET COUNT, AUTOMATED 39 10^3/uL (150-450)
[2020-09-11] MEDS: ONDANSETRON 4MG/2ML VIAL IV SCH ×4 (03:02→21:54)
[2020-09-11] MEDS: VANCOMYCIN HCL 1,000 MG, VIAL MATE ADAPTER 1 EACH in D5W 250 ML IV SCH ×2 (04:06→14:47)
[2020-09-11 05:43] VITALS: BP_SYST 95; BP_SYST 98; BP_DIAS 51; BP_DIAS 52
[2020-09-11] MEDS: MEROPENEM INJ 500 MG in IV 1 EA IV SCH ×3 (05:48→21:54)
[2020-09-11] MEDS: KCL 40MEQ in NS 1000ML 1,000 ML IV SCH ×2 (05:48→10:11)
[2020-09-11 07:11] LABS: HEMATOCRIT 24.5 % (36.0-47.0); HEMOGLOBIN 7.9 g/dl (12.0-15.5); MEAN CORPUSCULAR HEMOGLOBIN 29.7 pg (27.0-33.0); MEAN CORPUSCULAR HGB CONC 32.2 g/dl (32.0-36.5); MEAN CORPUSCULAR VOLUME 92.1 fl (80.0-96.0); RED BLOOD COUNT 2.66 10^6/uL (4.00-5.40); WHITE BLOOD COUNT 2.2 10^3/uL (4.0-10.0)
[2020-09-11 07:15] LABS: PLATELET COUNT, AUTOMATED 36 10^3/uL (150-450)
[2020-09-11 08:09] LABS: BLOOD UREA NITROGEN 8 MG/DL (7-18); CALCIUM LEVEL 7.5 MG/DL (8.8-10.2); CARBON DIOXIDE LEVEL 22 MEQ/L (21-32); CHLORIDE LEVEL 110 MEQ/L (98-107); CREATININE FOR GFR 0.51 MG/DL (0.55-1.30); GLOMERULAR FILTRATION RATE > 60.0 (>39); GLUCOSE, FASTING 95 MG/DL (70-100); POTASSIUM SERUM 4.5 MEQ/L (3.5-5.1); SODIUM LEVEL 140 MEQ/L (136-145)
[2020-09-11 09:00] VITALS: O2SAT 94
[2020-09-11] MEDS: SODIUM CHLORIDE 0.9% INJ 10 ML SYR IV SCH (09:00)
[2020-09-11 09:13] LABS: MAGNESIUM LEVEL 1.8 MG/DL (1.8-2.4)
[2020-09-11] MEDS: ESCITALOPRAM OXALATE 10 MG TAB (LEXAPRO) PO SCH (10:10)
[2020-09-11] MEDS: SIMETHICONE 80 MG CHEW TAB PO SCH ×2 (10:10→21:54)
[2020-09-11] MEDS: LEVOTHYROXINE 88MCG TABLET (0.088 MG) PO SCH (10:11)
--- NOTE | 2020-09-11 11:44 | CR.PDOC ---
General Date of Consultation: Sep 11, 2020 Referring Provider: Rochelle Downey MD Primary Care Physician: JUJU BAEZ DO Attending Physician: Rochelle Downey MD Consultation REASON FOR CONSULTATION: PE/pancreatic cancer. HISTORY OF PRESENT ILLNESS: 70-year-old with pancreatic cancer, currently admitted for diarrhea and generalized weakness. She is currently on FOLFIRINOX chemotherapy for pancreatic cancer with most recent cycle given 08/31/2020 to 09/02/2020. On admission found to have pancytopenia with significant leukopenia/neutropenia and thrombocytopenia. CT abdomen and pelvis 09/09/2020 showed a PE left lower lobe, possible left common femoral thrombosis, findings of enteritis, a liver lesion and ascites. Bilateral Duplex vascular ultrasound 09/10/2020 showed left common femoral vein nonocclusive DVT. The patient reports no dizziness. No headaches. No changes in eyesight. Reports diarrhea. No mucositis. No melena. No hematochezia. No cough. No shortness of breath. No urinary problems. Noted to have a fever on admission but none since. No chill s. Reports weight loss. ALLERGIES: Please see below. HOME MEDICATIONS: Please see below. PAST MEDICAL HISTORY: Hypothyroidism. Pancreatic cancer. PAST SURGICAL HISTORY: Whipple procedure April 2020 FAMILY HISTORY: A sister had breast cancer. Another sister had uterine cancer. Her daughter is positive for factor II/prothrombin gene mutation according to her, and also has history of blood clots. SOCIAL HISTORY: Former smoker, having smoked for a short period of time years ago. . REVIEW OF SYSTEMS: 14 point review of systems negative except as noted in HPI. PHYSICAL EXAMINATION: VITAL SIGNS: Please see below. GENERAL APPEARANCE: Alert, lying comfortably in bed, not in distress. HEENT: Pinkish conjunctivae, anicteric. Moist oral mucosa. Atraumatic. RESPIRATORY: Lungs fair air entry. No rales, no rhonchi, no wheezes. CARDIOVASCULAR: S1, S2 regular. No murmur. ABDOMEN: Soft, positive bowel sounds, ascitic fluid noted. No palpable masses. EXTREMITIES: No calf swelling, no calf tenderness. No pedal edema. No cyanosis. NEUROLOGICAL: Alert, oriented X3. Moved all extremities spontaneously PSYCHIATRIC: No anxiety. LABORATORY DATA: Please see below. ASSESSMENT/PLAN: 70-year-old with pancreatic cancer, currently on FOLFIRINOX chemotherapy. Most recent cycle given 08/31/2020 to 09/02/2020. Currently admitted with pancytopenia, likely related to chemotherapy. Also has newly diagnosed pulmonary embolism and DVT. Continue heparin anticoagulation. Expect platelet count to improve from here on as chemotherapy was given around 10 days ago. However, would hold anticoagulation if platelet count should go down below 30 or if the patient should have signs and/or symptoms of active bleeding. Continue close monitoring of blood counts and H/H. Would switch to low molecular weight heparin once platelet counts above 50 K/UL, and no signs nor symptoms of active bleeding. The patient is currently on filgrastim. This may be discontinued once neutrophil count has increased to at least 1.5K/UL. Thank you for referring . [facility]. Vital Signs/I&O Vital Signs Date Time Temp Pulse Resp B/P (MAP) Pulse Ox O2 Delivery O2 Flow Rate FiO2 09/11/20 05:43 98.6 63 18 98/52 (67) 94 Room Air 09/10/20 03:50 2.0 I&O- Last 24 Hours up to 6 AM 09/11/20 06:00 Intake Total 3916 ml Output Total 1420 ml Balance 2496 ml Laboratory Data Labs 24H Laboratory Tests 2 09/10/20 12:06: Anion Gap 9, Glomerular Filtration Rate > 60.0, Calcium Level 7.6L, Magnesium Level 1.9 09/10/20 14:25: Nucleated Red Blood Cells % (auto) 0.0, Activated Partial Thromboplast Time 46.5H 09/10/20 17:02: Activated Partial Thromboplast Time 45.1H 09/10/20 23:57: Nucleated Red Blood Cells % (auto) 0.0, Activated Partial Thromboplast Time 102.9H, Immature Platelet Fraction 4.4 09/11/20 02:52: Vancomycin Level Trough 10.9 09/11/20 06:55: Nucleated Red Blood Cells % (auto) 0.0, Activated Partial Thromboplast Time 88.8H, Anion Gap 8, Glomerular Filtration Rate > 60.0, Calcium Level 7.5L, Magnesium Level 1.8 CBC/BMP Laboratory Tests 09/10/20 12:06 09/10/20 14:25 09/10/20 23:57 09/11/20 06:55 Microbiology Microbiology 09/11/20 Stool Occult Blood (ARMIDA) - Final, Complete 09/10/20 Campylobacter (PCR), Received Pending 09/10/20 Clostridium difficile Toxin A&B PCR, Received Pending 09/10/20 Plesiomonas shigelloides (PCR), Received Pending 09/10/20 Salmonella (PCR)(ARMIDA), Received Pending 09/10/20 Vibrio Species (PCR), Received Pending 09/10/20 Vibrio Cholerae (PCR), Received Pending 09/10/20 Yersinia enterocolitica (PCR), Received Pending 09/10/20 Enteroaggregative E. coli (PCR), Received Pending 09/10/20 Enteropathogenic E. coli (PCR), Received Pending 09/10/20 Enterotoxigenic E. coli (PCR), Received Pending 09/10/20 E. coli Shiga-like Toxin (PCR), Received Pending 09/10/20 Escherichia coli 0157 (PCR), Received Pending 09/10/20 Enteroinvasive E. coli/Shigella PCR, Received Pending 09/10/20 Cryptosporidium (PCR), Received Pending 09/10/20 Cyclospora cayetanensis (PCR), Received Pending 09/10/20 Entamoeba histolytica (PCR), Received Pending 09/10/20 Giardia lamblia (PCR), Received Pending 09/10/20 Adenovirus Type F 40/41 (PCR), Received Pending 09/10/20 Astrovirus (PCR), Received Pending 09/10/20 Norovirus GI/GII (PCR), Received Pending 09/10/20 Rotavirus A (PCR), Received Pending 09/10/20 Sapovirus I/II/IV/V (PCR), Received Pending 09/10/20 Urine Culture - Final, Complete 09/10/20 Blood Culture - Preliminary, Resulted No growth after 24 hours . All specim... 09/10/20 Blood Culture - Preliminary, Resulted No growth after 24 hours . All specim... Allergies Coded Allergies: No Known Allergies (Unverified , 08/29/19) Home Medications Scheduled Aspirin (Aspirin) 325 Mg Tablet, 325 MG PO DAILY, (Reported) Escitalopram Oxalate (Lexapro) 10 Mg Tablet, 10 MG PO DAILY, (Reported) Levothyroxine Sodium (Synthroid) 88 Mcg Tablet, 88 MCG PO DAILY, (Reported) Lidocaine/Prilocaine (Lidocaine-Prilocaine Cream) 2.5%/2.5% Cream..g., 1 DOSE TOP ASDIRECTED, #30 Apply dime size to port area. Do not rub in, cover with saran wrap to protect clothing. Lipase/Protease/Amylase ([place] 36,000 Units Capsule) 1 Each Capsule.dr, 2 CAP PO TID, (Reported) WITH MEALS Omeprazole (Omeprazole) 40 Mg Capsule.dr, 40 MG PO BID for 30 Days, #60 Simethicone (Gas Relief) 80 Mg Tab.chew, 80 MG PO BID, (Reported) Scheduled PRN Diphenoxylate HCl/Atropine (Lomotil 2.5-0.025 mg Tablet) 1 Each Tablet, 1 TAB PO Q6H PRN for DIARRHEA, #30 Hydrocodone/Acetaminophen (Hydrocodone-Acetamin 10-325 mg) 1 Each Tablet, 1 TAB PO Q6H PRN for PAIN, (Reported) Lipase/Protease/Amylase ([place] 36,000 Units Capsule) 1 Each Capsule.dr, 1 CAP PO DAILY PRN for WITH SNACKS, (Reported) Lorazepam (Ativan) 0.5 Mg Tablet, 0.5 MG PO ASDIRECTED PRN for NAUSEA for 30 Days, #30 Take 0.5 mg po q 6 hours prn nausea uncontrolled by Zofran or Compazine Prochlorperazine Maleate (Prochlorperazine Maleate) 10 Mg Tablet, 10 MG PO Q6- 8HP PRN for NAUSEA for 30 Days, #60 TAKE 10 MG PO Q6-8 HOURS NEEDED FOR VOMITING DESPITE ONDANSETRON MICHELET SANCHEZ MD Sep 11, 2020 11:44
[2020-09-11 12:17] LABS: HEMATOCRIT 24.9 % (36.0-47.0); HEMOGLOBIN 7.9 g/dl (12.0-15.5); MEAN CORPUSCULAR HEMOGLOBIN 29.4 pg (27.0-33.0); MEAN CORPUSCULAR HGB CONC 31.7 g/dl (32.0-36.5); MEAN CORPUSCULAR VOLUME 92.6 fl (80.0-96.0); RED BLOOD COUNT 2.69 10^6/uL (4.00-5.40); WHITE BLOOD COUNT 3.1 10^3/uL (4.0-10.0)
[2020-09-11 12:18] LABS: PLATELET COUNT, AUTOMATED 39 10^3/uL (150-450)
[2020-09-11] MEDS: FILGRASTIM 300 MCG/0.5 ML SYRINGE (J1442 PER 1MCG) SC SCH (13:47)
[2020-09-11 14:00] VITALS: BP 104/53
--- NOTE | 2020-09-11 17:50 | IPNPDOC ---
Date Seen The patient was seen on 09/11/20. Progress Note SUBJECTIVE: GI panel pending ,but c. diff neg, 2 BM yesterday. H/H 7.9/24.5. Dr. Loza to assess today, f/u recommendations. NO s/s of bleeding. Denies SOB, nausea currently, chills, abdominal pain. OBJECTIVE: PHYSICAL EXAMINATION: VITAL SIGNS: Please see below GENERAL APPEARANCE: NAD, resting in bed. AAOx3 HEENT: Atraumatic. Normocephalic. Eyes are nonicteric. Trachea is midline. Muc ous mucous membranes CARDIOVASCULAR:. Normal S1, S2, regular rate and rhythm. No clicks rubs or murm urs auscultated. LUNGS: CTAB, no W/R/R CHEST: Port right upper chest ABDOMEN:. Soft, nondistended, no tenderness, no rebound tenderness or guarding. Normoactive bowel sounds. EXTREMITIES: No edema. Full and equal pulses in bilateral upper and lower extremities. NEUROLOGICAL:. No focal neurological deficits. PSYCHIATRIC: Mood and affect appear appropriate. LABORATORY DATA: See below. IMAGING: LE doppler b/l: Left common femoral vein nonocclusive DVT with eccentric echogenic appearance suggesting subacute to chronic clot however this was not seen on duplex of December 03, 2019. CXR: 1. Prominence of the pulmonary vascular markings. 2. Mild opacification at the left lung base, suggestive of of atelectatic change or infiltrate. Clinical correlation and follow-up radiographs are recommended. 3. Blunting of the costophrenic angles, left side greater than right, and minimal effusions are considered. 4. A right-sided Port-A-Cath is identified, with the catheter tip within the right side of the heart. CT Abdomen And Pelvis With Contrast: 1. Filling defects are identified within pulmonary arterial branches to the left lower lobe, consistent with pulmonary embolism. 2. There is a focal area of hypodensity within the left common femoral vein, and thrombus cannot be excluded. Correlation with venous duplex ultrasound recommended, as clinically indicated. 3. There is a large amount of abdominal and pelvic ascites again visualized. 4. Within the right middle lobe of the lung, there is a stable 4-5 mm nodule. 5. There is hypodense fatty infiltration of the liver. Within the left hepatic lobe anteriorly, there is a 1.2 x 0.7 cm hypodense lesion, without significant progression. A metastatic lesion cannot be excluded. A nonemergent MRI of the abdomen with/without contrast is recommended. 6. Postoperative changes are again visualized, with resection of the head of the pancreas. 7. Areas of small bowel wall thickening are visualized, suggestive of enteritis. 8. The rectum is distended with an air-fluid level. Air-fluid levels are also identified within the colon. 9. There is stranding of the abdominal and pelvic peritoneum. 10. Additional findings described above. MICROBIOLOGY: GI panel: pending C. diff neg Blood cultures: NG UA +, UCx contaminated Sputum culture ordered ASSESSMENT: Patient is a 70-year-old female with a past medical history significant for pancreatic adenocarcinoma stage III, currently on neoadjuvant chemotherapy who presented to the [facility] emergency Department with neutropenic fever, nausea, vomiting and diarrhea. PLAN: Neutropenic fever possibly 2/2 to PNA vs. enteritis, sepsis -WBC continues to improve, afebrile since admission. ANC 18 -Micro above -CXR: could not r/o PNA -Nontender abd exam so unlikely SBP- but there is significant ascites -C/w meropenem, vancomycin -Discussed case with Dr. Loza (heme/onc), consulted Left lower lobe pulmonary embolism, Left common femoral vein thrombosis likely 2/2 to hypercoaguable state, malignancy -CT abd/pelvis above -Continue with heparin gtt, regular lab checks with low PLTs -When closer to d/c discuss with heme/onc what choice of anticoagulant would be Pancytopenia, acute thrombocytopenia likely 2/2 to chemotherapy -Patient received chemo on 08/31/20, at that time PLTs 120 -On admission 35, today PLts slightly incr -Per Dr. Loza, we should see them start to trend upward. If we do not see improvement and PLTs drop below 30, stop heparin gtt and keep off heparin products until PLTs improve to 50. We can discuss [place] filter at that time if we do not wish to restart heparin products. -PT/PTT and CBC Q6H Chronic anemia -H/H 7.9/24.5 -No hx of CAD, CHF, patient asymptomatic currently -F/u heme/onc recommendation as to when to transfuse -type and screen Nausea, vomiting, diarrhea likely 2/2 to either chemotherapy vs. infection -C/w IVFs, zofran PRN -F/u all micro -Abx above Hypokalemia, acute and likely 2/2 to diarrhea, vomiting- resolved -F/u AM labs Adenocarcinoma of the pancreas stage III, status post Whipple procedure in April 2020 -Patient currently on neoadjuvant FOLFIRONOX chemotherapy, last does 08/31/20 -She does have ascites on physical exam, which is likely malignant in origin. -Dr. Mckinnon heme/onc Abdominal and pelvic ascites with abdominal and pelvic peritoneal stranding -If fevers persist or abd pain starts with improvement of n/v/d consider paracentesis and treatment of SBP -Incr ascites on abd/pelvis CT Hypothyroidism -c/w home med Depression/anxiety -Continue Lexapro DVT prophylaxis -lovenox BID DISPOSITION: Heme/onc consulted, case discussed with Dr. Loza and she is to see today, f/u recommendations. PT/OT. Plan is home when medically improved. VS, I&O, 24H, Fishbone Vital Signs/I&O Vital Signs Date Time Temp Pulse Resp B/P (MAP) Pulse Ox O2 Delivery O2 Flow Rate FiO2 09/11/20 14:00 98.0 85 18 104/53 (70) 93 Room Air 09/10/20 03:50 2.0 I&O- Last 24 Hours up to 6 AM 09/11/20 05:59 Intake Total 3018 ml Output Total 1420 ml Balance 1598 ml Laboratory Data 24H LABS Laboratory Tests 2 09/10/20 23:57: Nucleated Red Blood Cells % (auto) 0.0, Immature Platelet Fraction 4.4, Activ ated Partial Thromboplast Time 102.9H 09/11/20 02:52: Vancomycin Level Trough 10.9 09/11/20 06:55: Nucleated Red Blood Cells % (auto) 0.0, Activated Partial Thromboplast Time 88.8H, Anion Gap 8, Glomerular Filtration Rate > 60.0, Calcium Level 7.5L, Magnesium Level 1.8 09/11/20 12:04: Nucleated Red Blood Cells % (auto) 0.0 09/11/20 15:03: Vancomycin Level Trough 29.9*H CBC/BMP Laboratory Tests 09/10/20 23:57 09/11/20 06:55 09/11/20 12:04 Microbiology Microbiology 09/11/20 Stool Occult Blood (ARMIDA) - Final, Complete 09/10/20 Campylobacter (PCR), Received Pending 09/10/20 Clostridium difficile Toxin A&B PCR, Received Pending 09/10/20 Plesiomonas shigelloides (PCR), Received Pending 09/10/20 Salmonella (PCR)(ARMIDA), Received Pending 09/10/20 Vibrio Species (PCR), Received Pending 09/10/20 Vibrio Cholerae (PCR), Received Pending 09/10/20 Yersinia enterocolitica (PCR), Received Pending 09/10/20 Enteroaggregative E. coli (PCR), Received Pending 09/10/20 Enteropathogenic E. coli (PCR), Received Pending 09/10/20 Enterotoxigenic E. coli (PCR), Received Pending 09/10/20 E. coli Shiga-like Toxin (PCR), Received Pending 09/10/20 Escherichia coli 0157 (PCR), Received Pending 09/10/20 Enteroinvasive E. coli/Shigella PCR, Received Pending 09/10/20 Cryptosporidium (PCR), Received Pending 09/10/20 Cyclospora cayetanensis (PCR), Received Pending 09/10/20 Entamoeba histolytica (PCR), Received Pending 09/10/20 Giardia lamblia (PCR), Received Pending 09/10/20 Adenovirus Type F 40/41 (PCR), Received Pending 09/10/20 Astrovirus (PCR), Received Pending 09/10/20 Norovirus GI/GII (PCR), Received Pending 09/10/20 Rotavirus A (PCR), Received Pending 09/10/20 Sapovirus I/II/IV/V (PCR), Received Pending 09/10/20 Urine Culture - Final, Complete 09/10/20 Blood Culture - Preliminary, Resulted No growth after 24 hours . All specim... 09/10/20 Blood Culture - Preliminary, Resulted No growth after 24 hours . All specim... Current Medications Current Medications Medications (Trade) Dose Ordered Sig/Jerad Route PRN Reason Start Time Stop Time Status Last Admin Dose Admin Acetaminophen (Tylenol Tab) 650 mg Q4H PRN PO PAIN OR FEVER 09/10/20 01:15 Al Hydrox/Mg Hydrox/Simethicone (Mylanta) 30 ml DAILY PRN PO DYSPEPSIA 09/10/20 01:15 Enoxaparin Sodium (Lovenox) 50 mg Q12H SC 09/10/20 09:00 09/10/20 14:08 DC 09/10/20 11:01 Escitalopram Oxalate (Lexapro) 10 mg DAILY PO 09/10/20 09:00 09/11/20 10:10 Filgrastim (Neupogen) 300 mcg DAILY SC 09/10/20 01:15 09/11/20 13:47 Heparin Sodium (Heparin (Flush)) 500 units ASDIRECTED PRN IV SEE LABEL COMMENTS 09/10/20 10:15 09/11/20 13:49 Heparin Sodium (Heparin (Flush)) 500 units DAILY IV 09/11/20 09:00 Heparin Sodium (Porcine) (Heparin) ASDIRECTED PRN IV SEE LABEL COMMENTS 09/10/20 00:30 09/10/20 09:42 DC Heparin Sodium (Porcine) 79604 units/IV Miscellaneous Supplies 250 ml @ 0 mls/hr Q0M IV 09/10/20 00:23 09/10/20 09:42 DC 09/10/20 01:22 Heparin Sodium (Porcine) 86400 units/IV Miscellaneous Supplies 250 ml @ 0 mls/hr Q0M IV 09/10/20 17:00 09/10/20 17:51 Home Med (Med Rec Complete!) ASDIRECTED XX 09/10/20 00:45 09/10/20 00:36 DC Levothyroxine Sodium (Synthroid) 88 mcg DAILY PO 09/10/20 09:00 09/11/20 10:11 Lidocaine/ Prilocaine (Emla) APPLY TO PORT ASDIRECTED TOP 09/10/20 05:00 Lorazepam (Ativan) 0.5 mg ASDIRECTED PRN PO NAUSEA 09/10/20 05:00 Magnesium Hydroxide (Milk Of Magnesia) 30 ml DAILY PRN PO CONSTIPATION 09/10/20 01:15 Meropenem 500 mg/ IV Miscellaneous Supplies 50 ml @ 100 mls/hr Q8H IV 09/10/20 06:00 09/10/20 05:25 DC Meropenem 500 mg/ IV Miscellaneous Supplies 50 ml @ 100 mls/hr Q8H IV 09/10/20 06:00 09/11/20 13:48 Non-Formulary Medication (Heparin Iv Rate Change Documentation ml/ Hr) ASDIRECTED XX 09/10/20 00:30 09/10/20 09:42 DC Non-Formulary Medication (Heparin Iv Rate Change Documentation ml/ Hr) ASDIRECTED XX 09/10/20 14:15 09/15/20 14:14 Ondansetron HCl (ZOFRAN INJection) 4 mg Q6H IV 09/10/20 14:00 09/11/20 13:47 Potassium Chloride/Sodium Chloride 1,000 ml @ 150 mls/hr Q6H40M IV 09/10/20 05:45 09/11/20 10:28 DC 09/11/20 10:11 Potassium Chloride/Sodium Chloride 1,000 ml @ 250 mls/hr Q4H IV 09/09/20 21:45 09/10/20 03:44 DC 09/09/20 21:45 Simethicone (Mylicon) 80 mg BID PO 09/10/20 09:00 09/11/20 10:10 Sodium Chloride (Saline Lock Flush) 10 ml ASDIRECTED PRN IV SEE LABEL COMMENTS 09/10/20 10:15 09/11/20 13:50 Sodium Chloride (Saline Lock Flush) 10 ml DAILY IV 09/11/20 09:00 Vancomycin HCl 750 mg/IV Miscellaneous Supplies 1 each/ Dextrose 275 ml @ 270 mls/hr Q12H IV 09/10/20 16:00 09/11/20 03:28 DC 09/10/20 16:28 Vancomycin HCl 1000 mg/IV Miscellaneous Supplies 1 each/ Dextrose 270 ml @ 270 mls/hr Q12H IV 09/11/20 04:00 09/11/20 14:47 Allergies Coded Allergies: No Known Allergies (Unverified , 08/29/19) Rochelle Downey MD Sep 11, 2020 17:50
[2020-09-11 18:16] LABS: HEMATOCRIT 26.3 % (36.0-47.0); HEMOGLOBIN 8.4 g/dl (12.0-15.5); MEAN CORPUSCULAR HEMOGLOBIN 29.6 pg (27.0-33.0); MEAN CORPUSCULAR HGB CONC 31.9 g/dl (32.0-36.5); MEAN CORPUSCULAR VOLUME 92.6 fl (80.0-96.0); PLATELET COUNT, AUTOMATED 46 10^3/uL (150-450); RED BLOOD COUNT 2.84 10^6/uL (4.00-5.40); WHITE BLOOD COUNT 4.6 10^3/uL (4.0-10.0)
[2020-09-11] MEDS: HEPARIN DRIP 25,000 UNITS in IV 1 EA IV SCH (19:36)
[2020-09-11 22:00] VITALS: BP 101/53
[2020-09-12] VITALS (7 sets, daily range): BP systolic 99–108; BP diastolic 52–54
[2020-09-12 00:20] LABS: HEMATOCRIT 24.1 % (36.0-47.0); HEMOGLOBIN 7.8 g/dl (12.0-15.5); MEAN CORPUSCULAR HEMOGLOBIN 30.1 pg (27.0-33.0); MEAN CORPUSCULAR HGB CONC 32.4 g/dl (32.0-36.5); MEAN CORPUSCULAR VOLUME 93.1 fl (80.0-96.0); PLATELET COUNT, AUTOMATED 44 10^3/uL (150-450); RED BLOOD COUNT 2.59 10^6/uL (4.00-5.40); WHITE BLOOD COUNT 5.9 10^3/uL (4.0-10.0)
[2020-09-12] MEDS: ONDANSETRON 4MG/2ML VIAL IV SCH ×4 (02:00→20:24)
[2020-09-12] MEDS: VANCOMYCIN HCL 1,000 MG, VIAL MATE ADAPTER 1 EACH in D5W 250 ML IV SCH (04:30)
[2020-09-12] MEDS: MEROPENEM INJ 500 MG in IV 1 EA IV SCH ×3 (05:54→22:21)
[2020-09-12 06:40] LABS: HEMATOCRIT 28.6 % (36.0-47.0); HEMOGLOBIN 9.3 g/dl (12.0-15.5); MEAN CORPUSCULAR HEMOGLOBIN 29.4 pg (27.0-33.0); MEAN CORPUSCULAR HGB CONC 32.5 g/dl (32.0-36.5); MEAN CORPUSCULAR VOLUME 90.5 fl (80.0-96.0); RED BLOOD COUNT 3.16 10^6/uL (4.00-5.40); WHITE BLOOD COUNT 7.7 10^3/uL (4.0-10.0)
[2020-09-12 07:01] LABS: PLATELET COUNT, AUTOMATED 45 10^3/uL (150-450)
[2020-09-12 07:02] LABS: BLOOD UREA NITROGEN 7 MG/DL (7-18); CALCIUM LEVEL 7.4 MG/DL (8.8-10.2); CARBON DIOXIDE LEVEL 23 MEQ/L (21-32); CHLORIDE LEVEL 113 MEQ/L (98-107); CREATININE FOR GFR 0.57 MG/DL (0.55-1.30); GLOMERULAR FILTRATION RATE > 60.0 (>39); GLUCOSE, FASTING 90 MG/DL (70-100); POTASSIUM SERUM 3.5 MEQ/L (3.5-5.1); SODIUM LEVEL 142 MEQ/L (136-145)
[2020-09-12] MEDS: SIMETHICONE 80 MG CHEW TAB PO SCH ×2 (08:58→20:25)
[2020-09-12] MEDS: LEVOTHYROXINE 88MCG TABLET (0.088 MG) PO SCH (08:58)
[2020-09-12] MEDS: ESCITALOPRAM OXALATE 10 MG TAB (LEXAPRO) PO SCH (08:58)
[2020-09-12] MEDS: SODIUM CHLORIDE 0.9% INJ 10 ML SYR IV SCH ×2 (08:59→09:00)
[2020-09-12 09:12] LABS: HEMATOCRIT 29.3 % (36.0-47.0); HEMOGLOBIN 9.6 g/dl (12.0-15.5); MEAN CORPUSCULAR HEMOGLOBIN 29.7 pg (27.0-33.0); MEAN CORPUSCULAR HGB CONC 32.8 g/dl (32.0-36.5); MEAN CORPUSCULAR VOLUME 90.7 fl (80.0-96.0); RED BLOOD COUNT 3.23 10^6/uL (4.00-5.40); WHITE BLOOD COUNT 9.4 10^3/uL (4.0-10.0)
[2020-09-12 09:19] LABS: PLATELET COUNT, AUTOMATED 50 10^3/uL (150-450)
[2020-09-12] MEDS: FILGRASTIM 300 MCG/0.5 ML SYRINGE (J1442 PER 1MCG) SC SCH (11:09)
[2020-09-12] MEDS ORDERED: VANCOMYCIN HCL 750 MG, VIAL MATE ADAPTER 1 EACH in D5W 250 ML IV SCH (19:00)
--- NOTE | 2020-09-12 20:22 | IPNPDOC ---
Date Seen The patient was seen on 09/12/20. Progress Note SUBJECTIVE: BM slowed down. S/p 1 unit PRBC corrected appropriately. Discussed case with Dr. Mckinnon, patient's normal heme/onc provider. C/w heparin gtt until discharge. Afebrile since admission, denies SOB, nausea currently, chills, abdominal pain. OBJECTIVE: PHYSICAL EXAMINATION: VITAL SIGNS: Please see below GENERAL APPEARANCE: NAD, resting in bed. AAOx3 HEENT: Atraumatic. Normocephalic. Eyes are nonicteric. Trachea is midline. Mucous mucous membranes CARDIOVASCULAR:. Normal S1, S2, regular rate and rhythm. No clicks rubs or murmurs auscultated. LUNGS: CTAB, no W/R/R CHEST: Port right upper chest ABDOMEN:. Soft, nondistended, no tenderness, no rebound tenderness or guarding. Normoactive bowel sounds. EXTREMITIES: No edema. Full and equal pulses in bilateral upper and lower extr emities. NEUROLOGICAL:. No focal neurological deficits. PSYCHIATRIC: Mood and affect appear appropriate. LABORATORY DATA: See below. IMAGING: LE doppler b/l: Left common femoral vein nonocclusive DVT with eccentric echogenic appearance suggesting subacute to chronic clot however this was not seen on duplex of December 03, 2019. CXR: 1. Prominence of the pulmonary vascular markings. 2. Mild opacification at the left lung base, suggestive of of atelectatic change or infiltrate. Clinical correlation and follow-up radiographs are recommended. 3. Blunting of the costophrenic angles, left side greater than right, and minimal effusions are considered. 4. A right-sided Port-A-Cath is identified, with the catheter tip within the right side of the heart. CT Abdomen And Pelvis With Contrast: 1. Filling defects are identified within pulmonary arterial branches to the left lower lobe, consistent with pulmonary embolism. 2. There is a focal area of hypodensity within the left common femoral vein, and thrombus cannot be excluded. Correlation with venous duplex ultrasound recommended, as clinically indicated. 3. There is a large amount of abdominal and pelvic ascites again visualized. 4. Within the right middle lobe of the lung, there is a stable 4-5 mm nodule. 5. There is hypodense fatty infiltration of the liver. Within the left hepatic lobe anteriorly, there is a 1.2 x 0.7 cm hypodense lesion, without significant progression. A metastatic lesion cannot be excluded. A nonemergent MRI of the abdomen with/without contrast is recommended. 6. Postoperative changes are again visualized, with resection of the head of the pancreas. 7. Areas of small bowel wall thickening are visualized, suggestive of enteritis. 8. The rectum is distended with an air-fluid level. Air-fluid levels are also identified within the colon. 9. There is stranding of the abdominal and pelvic peritoneum. 10. Additional findings described above. MICROBIOLOGY: GI panel: pending C. diff neg Blood cultures: NG UA +, UCx contaminated Sputum culture ordered ASSESSMENT: Patient is a 70-year-old female with a past medical history significant for pancreatic adenocarcinoma stage III, currently on neoadjuvant chemotherapy who presented to the [facility] emergency Department with neutropenic fever, nausea, vomiting and diarrhea. PLAN: Neutropenic fever possibly 2/2 to PNA vs. enteritis, resolved sepsis -WBC continues to improve, afebrile since admission. -ANC on admission 18 -Micro above with GI panel still pending -should have this back before dischar ging patient -CXR: could not r/o PNA. Sputum cx ordered but has not been able to be produced -Nontender abd exam so unlikely SBP- but there is significant ascites -C/w meropenem, vancomycin per heme/onc -Please call Dr. Mckinnon about Left lower lobe pulmonary embolism, Left common femoral vein thrombosis likely 2/2 to hypercoaguable state, malignancy -CT abd/pelvis above -Continue with heparin gtt until discharge per heme/onc, regular lab checks with low PLTs -Likely start on eliquis BID when patient ready for discharge. Pancytopenia, acute thrombocytopenia likely 2/2 to chemotherapy -Patient received chemo on 08/31/20, at that time PLTs 120 -On admission 35, today PLts incr to 50 -PT/PTT and CBC Q12H Chronic anemia -S/p 1 unit PRBC, no s/s of bleeding -H/H -No hx of CAD, CHF, patient asymptomatic currently -Transfuse <8 -CBC Q12H Nausea, vomiting, diarrhea likely 2/2 to either chemotherapy vs. infection- improved -C/w IVFs, zofran PRN -F/u all micro -Abx above Adenocarcinoma of the pancreas stage III, status post Whipple procedure in April 2020 -Patient currently on neoadjuvant FOLFIRONOX chemotherapy, last does 08/31/20 -She does have ascites on physical exam, which is likely malignant in origin. -Dr. Mckinnon heme/onc Abdominal and pelvic ascites with abdominal and pelvic peritoneal stranding -If fevers persist or abd pain starts with improvement of n/v/d consider paracentesis and treatment of SBP -Incr ascites on abd/pelvis CT Hypothyroidism -c/w home med Depression/anxiety -Continue Lexapro DVT prophylaxis -heparin gtt Resolved issues: Hypokalemia, acute and likely 2/2 to diarrhea, vomiting DISPOSITION: Heme/onc consulted, Dr. Mckinnon. PT/OT. Plan is home when medically improved. VS, I&O, 24H, Fishbone Vital Signs/I&O Vital Signs Date Time Temp Pulse Resp B/P (MAP) Pulse Ox O2 Delivery O2 Flow Rate FiO2 09/12/20 14:00 97.8 70 18 105/54 (71) 96 Room Air 09/10/20 03:50 2.0 I&O- Last 24 Hours up to 6 AM 09/12/20 06:00 Intake Total 2336 ml Output Total 0 ml Balance 2336 ml Laboratory Data 24H LABS Laboratory Tests 2 09/12/20 00:13: Nucleated Red Blood Cells % (auto) 0.3H, Immature Platelet Fraction 4.9 09/12/20 06:19: Nucleated Red Blood Cells % (auto) 0.0, Activated Partial Thromboplast Time 79.0H, Anion Gap 6L, Glomerular Filtration Rate > 60.0, Calcium Level 7.4L 09/12/20 08:58: Nucleated Red Blood Cells % (auto) 0.2H 09/12/20 14:51: Vancomycin Level Trough 21.3H CBC/BMP Laboratory Tests 09/12/20 00:13 09/12/20 06:19 09/12/20 08:58 Microbiology Microbiology 09/11/20 Stool Occult Blood (ARMIDA) - Final, Complete 09/10/20 Campylobacter (PCR), Received Pending 09/10/20 Clostridium difficile Toxin A&B PCR, Received Pending 09/10/20 Plesiomonas shigelloides (PCR), Received Pending 09/10/20 Salmonella (PCR)(ARMIDA), Received Pending 09/10/20 Vibrio Species (PCR), Received Pending 09/10/20 Vibrio Cholerae (PCR), Received Pending 09/10/20 Yersinia enterocolitica (PCR), Received Pending 09/10/20 Enteroaggregative E. coli (PCR), Received Pending 09/10/20 Enteropathogenic E. coli (PCR), Received Pending 09/10/20 Enterotoxigenic E. coli (PCR), Received Pending 09/10/20 E. coli Shiga-like Toxin (PCR), Received Pending 09/10/20 Escherichia coli 0157 (PCR), Received Pending 09/10/20 Enteroinvasive E. coli/Shigella PCR, Received Pending 09/10/20 Cryptosporidium (PCR), Received Pending 09/10/20 Cyclospora cayetanensis (PCR), Received Pending 09/10/20 Entamoeba histolytica (PCR), Received Pending 09/10/20 Giardia lamblia (PCR), Received Pending 09/10/20 Adenovirus Type F 40/41 (PCR), Received Pending 09/10/20 Astrovirus (PCR), Received Pending 09/10/20 Norovirus GI/GII (PCR), Received Pending 09/10/20 Rotavirus A (PCR), Received Pending 09/10/20 Sapovirus I/II/IV/V (PCR), Received Pending 09/10/20 Urine Culture - Final, Complete 09/10/20 Blood Culture - Preliminary, Resulted No Growth after 48 hours. All Specime... 09/10/20 Blood Culture - Preliminary, Resulted No Growth after 48 hours. All Specime... Current Medications Current Medications Medications (Trade) Dose Ordered Sig/Jerad Route PRN Reason Start Time Stop Time Status Last Admin Dose Admin Acetaminophen (Tylenol Tab) 650 mg Q4H PRN PO PAIN OR FEVER 09/10/20 01:15 Al Hydrox/Mg Hydrox/Simethicone (Mylanta) 30 ml DAILY PRN PO DYSPEPSIA 09/10/20 01:15 Enoxaparin Sodium (Lovenox) 50 mg Q12H SC 09/10/20 09:00 09/10/20 14:08 DC 09/10/20 11:01 Escitalopram Oxalate (Lexapro) 10 mg DAILY PO 09/10/20 09:00 09/12/20 08:58 Filgrastim (Neupogen) 300 mcg DAILY SC 09/10/20 01:15 09/12/20 11:09 Heparin Sodium (Heparin (Flush)) 500 units ASDIRECTED PRN IV SEE LABEL COMMENTS 09/10/20 10:15 09/12/20 09:09 DC 09/11/20 13:49 Heparin Sodium (Heparin (Flush)) 500 units ASDIRECTED PRN IV SEE LABEL COMMENTS 09/12/20 00:15 Heparin Sodium (Heparin (Flush)) 500 units DAILY IV 09/11/20 09:00 09/12/20 08:58 Heparin Sodium (Heparin (Flush)) 500 units DAILY IV 09/12/20 09:00 09/12/20 09:09 DC Heparin Sodium (Porcine) (Heparin) ASDIRECTED PRN IV SEE LABEL COMMENTS 09/10/20 00:30 09/10/20 09:42 DC Heparin Sodium (Porcine) 48141 units/IV Miscellaneous Supplies 250 ml @ 0 mls/hr Q0M IV 09/10/20 00:23 09/10/20 09:42 DC 09/10/20 01:22 Heparin Sodium (Porcine) 89561 units/IV Miscellaneous Supplies 250 ml @ 0 mls/hr Q0M IV 09/10/20 17:00 09/11/20 19:36 Home Med (Med Rec Complete!) ASDIRECTED XX 09/10/20 00:45 09/10/20 00:36 DC Levothyroxine Sodium (Synthroid) 88 mcg DAILY PO 09/10/20 09:00 09/12/20 08:58 Lidocaine/ Prilocaine (Emla) APPLY TO PORT ASDIRECTED TOP 09/10/20 05:00 Lorazepam (Ativan) 0.5 mg ASDIRECTED PRN PO NAUSEA 09/10/20 05:00 Magnesium Hydroxide (Milk Of Magnesia) 30 ml DAILY PRN PO CONSTIPATION 09/10/20 01:15 Meropenem 500 mg/ IV Miscellaneous Supplies 50 ml @ 100 mls/hr Q8H IV 09/10/20 06:00 09/10/20 05:25 DC Meropenem 500 mg/ IV Miscellaneous Supplies 50 ml @ 100 mls/hr Q8H IV 09/10/20 06:00 09/12/20 14:26 Non-Formulary Medication (Heparin Iv Rate Change Documentation ml/ Hr) ASDIRECTED XX 09/10/20 00:30 09/10/20 09:42 DC Non-Formulary Medication (Heparin Iv Rate Change Documentation ml/ Hr) ASDIRECTED XX 09/10/20 14:15 09/15/20 14:14 Ondansetron HCl (ZOFRAN INJection) 4 mg Q6H IV 09/10/20 14:00 09/12/20 20:24 Potassium Chloride/Sodium Chloride 1,000 ml @ 150 mls/hr Q6H40M IV 09/10/20 05:45 09/11/20 10:28 DC 09/11/20 10:11 Potassium Chloride/Sodium Chloride 1,000 ml @ 250 mls/hr Q4H IV 09/09/20 21:45 09/10/20 03:44 DC 09/09/20 21:45 Simethicone (Mylicon) 80 mg BID PO 09/10/20 09:00 09/12/20 20:25 Sodium Chloride (Saline Lock Flush) 10 ml ASDIRECTED PRN IV SEE LABEL COMMENTS 09/10/20 10:15 09/12/20 09:09 DC 09/11/20 13:50 Sodium Chloride (Saline Lock Flush) 10 ml ASDIRECTED PRN IV SEE LABEL COMMENTS 09/12/20 00:15 Sodium Chloride (Saline Lock Flush) 10 ml DAILY IV 09/11/20 09:00 09/12/20 09:09 DC 09/12/20 08:59 Sodium Chloride (Saline Lock Flush) 10 ml DAILY IV 09/12/20 09:00 Vancomycin HCl 750 mg/IV Miscellaneous Supplies 1 each/ Dextrose 275 ml @ 270 mls/hr Q12H IV 09/10/20 16:00 09/11/20 03:28 DC 09/10/20 16:28 Vancomycin HCl 750 mg/IV Miscellaneous Supplies 1 each/ Dextrose 275 ml @ 275 mls/hr Q12H IV 09/12/20 19:00 09/12/20 18:29 Vancomycin HCl 1000 mg/IV Miscellaneous Supplies 1 each/ Dextrose 270 ml @ 270 mls/hr Q12H IV 09/11/20 04:00 09/12/20 15:36 DC 09/12/20 04:30 Allergies Coded Allergies: No Known Allergies (Unverified , 08/29/19) Rochelle Downey MD Sep 12, 2020 20:22
[2020-09-12 21:15] LABS: HEMATOCRIT 30.4 % (36.0-47.0); HEMOGLOBIN 9.5 g/dl (12.0-15.5); MEAN CORPUSCULAR HEMOGLOBIN 28.7 pg (27.0-33.0); MEAN CORPUSCULAR HGB CONC 31.3 g/dl (32.0-36.5); MEAN CORPUSCULAR VOLUME 91.8 fl (80.0-96.0); RED BLOOD COUNT 3.31 10^6/uL (4.00-5.40); WHITE BLOOD COUNT 14.1 10^3/uL (4.0-10.0)
[2020-09-12 21:21] LABS: PLATELET COUNT, AUTOMATED 53 10^3/uL (150-450)
[2020-09-13] MEDS: HEPARIN DRIP 25,000 UNITS in IV 1 EA IV SCH (01:48)
[2020-09-13] MEDS: ONDANSETRON 4MG/2ML VIAL IV SCH ×2 (03:22→08:18)
[2020-09-13 05:07] VITALS: O2SAT 92
[2020-09-13] MEDS: MEROPENEM INJ 500 MG in IV 1 EA IV SCH (05:29)
[2020-09-13 06:00] VITALS: BP 111/46
[2020-09-13 07:18] LABS: ALBUMIN 1.9 GM/DL (3.2-5.2); ALT/SGPT 10 U/L (12-78); BILIRUBIN,TOTAL 0.5 MG/DL (0.2-1.0); BLOOD UREA NITROGEN 7 MG/DL (7-18); CALCIUM LEVEL 7.8 MG/DL (8.8-10.2); CARBON DIOXIDE LEVEL 24 MEQ/L (21-32); CHLORIDE LEVEL 112 MEQ/L (98-107); GLOMERULAR FILTRATION RATE > 60.0 (>39); GLUCOSE, FASTING 70 MG/DL (70-100); POTASSIUM SERUM 2.7 MEQ/L (3.5-5.1); SODIUM LEVEL 143 MEQ/L (136-145); TOTAL PROTEIN 4.4 GM/DL (6.4-8.2); VANCOMYCIN LEVEL TROUGH 22.3 UG/ML (10.0-20.0)
[2020-09-13] MEDS: SIMETHICONE 80 MG CHEW TAB PO SCH ×2 (08:18→20:02)
[2020-09-13] MEDS: ESCITALOPRAM OXALATE 10 MG TAB (LEXAPRO) PO SCH (08:18)
[2020-09-13] MEDS: LEVOTHYROXINE 88MCG TABLET (0.088 MG) PO SCH (08:18)
[2020-09-13] MEDS: SODIUM CHLORIDE 0.9% INJ 10 ML SYR IV SCH (08:19)
[2020-09-13 08:29] LABS: MAGNESIUM LEVEL 1.6 MG/DL (1.8-2.4)
[2020-09-13 09:45] LABS: HEMATOCRIT 31.8 % (36.0-47.0); HEMOGLOBIN 10.2 g/dl (12.0-15.5); MEAN CORPUSCULAR HGB CONC 32.1 g/dl (32.0-36.5); MEAN CORPUSCULAR VOLUME 90.3 fl (80.0-96.0); RED BLOOD COUNT 3.52 10^6/uL (4.00-5.40)
[2020-09-13 09:50] LABS: PLATELET COUNT, AUTOMATED 61 10^3/uL (150-450)
[2020-09-13] MEDS: FILGRASTIM 300 MCG/0.5 ML SYRINGE (J1442 PER 1MCG) SC SCH (10:19)
[2020-09-13] MEDS ORDERED: POTASSIUM CHLORIDE 10 MEQ SR TABLET PO ONE (11:45)
--- NOTE | 2020-09-13 11:48 | IPNPDOC ---
Text Note Date of Service The patient was seen on 09/13/20. NOTE SUBJECTIVE: Patient seen and examined at bedside. No acute overnight events reported. No new medical complaints this morning. OBJECTIVE: VITAL SIGNS: Please see below GENERAL APPEARANCE: NAD HEENT: Atraumatic. Normocephalic. Eyes are nonicteric. Trachea is midline. Mucous mucous membranes CARDIOVASCULAR: + S1S2, RRR LUNGS: CTAB, no W/R/R CHEST: Port right upper chest ABDOMEN:. Soft, nondistended, no tenderness, no rebound tenderness or guarding. Normoactive bowel sounds. EXTREMITIES: No edema. PSYCHIATRIC: Mood and affect appear appropriate. A/P: 70F with PMHx including pancreatic adenocarcinoma stage III, currently on neoadjuvant chemotherapy who presented to the [facility] emergency Department with neutropenic fever, nausea, vomiting and diarrhea. #neutropenic fever possibly 2/2 to PNA vs. enteritis, resolved sepsis -WBC trending up -ANC on admission 18 -Micro above with GI panel still pending -CXR: could not r/o PNA. Sputum cx ordered but has not been able to be produced -Nontender abd exam so unlikely SBP- but there is significant ascites -C/w meropenem, vancomycin per heme/onc -follow as per onc - Dr. Mckinnon #Left lower lobe pulmonary embolism, Left common femoral vein thrombosis likely 2/2 to hypercoaguable state, malignancy -Continue with heparin gtt until discharge per heme/onc, regular lab checks with low PLTs -Likely start on eliquis BID when patient ready for discharge. #Pancytopenia, acute thrombocytopenia likely 2/2 to chemotherapy -Patient received chemo on 08/31/20, at that time PLTs 120 -On admission 35 -PT/PTT and CBC daily #Chronic anemia -S/p 1 unit PRBC, no s/s of bleeding -No hx of CAD, CHF, patient asymptomatic currently -Transfuse <8 -CBC daily #Nausea, vomiting, diarrhea likely 2/2 to either chemotherapy vs. infection- improved -C/w IVFs, zofran PRN -F/u all micro -Abx above #Adenocarcinoma of the pancreas stage III, status post Whipple procedure in April 2020 -Patient currently on neoadjuvant FOLFIRONOX chemotherapy, last does 08/31/20 -She does have ascites on physical exam, which is likely malignant in origin. -Dr. Mckinnon heme/onc #Abdominal and pelvic ascites with abdominal and pelvic peritoneal stranding -If fevers persist or abd pain starts with improvement of n/v/d consider paracentesis and treatment of SBP -Incr ascites on abd/pelvis CT #Hypothyroidism -c/w home med #Depression/anxiety -Continue Lexapro #DVT prophylaxis -heparin gtt as above Resolved issues: Hypokalemia, acute and likely 2/2 to diarrhea, vomiting DISPOSITION: Heme/onc consulted, Dr. Mckinnon. PT/OT. Plan is home when medically improved. VS,Fishbone, I+O VS, Fishbone, I+O Laboratory Tests 09/12/20 20:56 09/13/20 06:04 09/13/20 09:17 Vital Signs Date Time Temp Pulse Resp B/P (MAP) Pulse Ox O2 Delivery O2 Flow Rate FiO2 09/13/20 06:00 97.2 66 16 111/46 (67) 93 Room Air 09/10/20 03:50 2.0 I&O- Last 24 Hours up to 6 AM 09/13/20 06:00 Intake Total 1191 ml Output Total 0 ml Balance 1191 ml DIANA ORTIZ MD Sep 13, 2020 11:48
[2020-09-13] MEDS ORDERED: MAG SULF 1GM/100ML (MAG RUN) 1 GM in IV 1 EA IV ONE (12:00)
[2020-09-13] MEDS: LACTOBACILLUS ACIDOPHILUS CAP (BACID) PO SCH ×3 (12:30→20:02)
[2020-09-13] MEDS ORDERED: LevoFLOXacin 750 MG TABLET PO ONE (14:00)
[2020-09-13] MEDS: SODIUM CHLORIDE 0.9% INJ 10 ML SYR IV PRN (14:04)
[2020-09-13 14:16] VITALS: BP 96/45
[2020-09-13 18:08] LABS: POTASSIUM SERUM 2.7 MEQ/L (3.5-5.1)
[2020-09-13] MEDS: KCL 10MEQ/100ML SWI (KRUN) 10 MEQ in IV 1 EA IV SCH ×2 (18:39→20:02)
[2020-09-13] MEDS ORDERED: VANCOMYCIN HCL 750 MG, VIAL MATE ADAPTER 1 EACH in D5W 250 ML IV SCH (20:00)
[2020-09-13 20:58] LABS: HEMATOCRIT 28.7 % (36.0-47.0); HEMOGLOBIN 9.4 g/dl (12.0-15.5); MEAN CORPUSCULAR HEMOGLOBIN 29.3 pg (27.0-33.0); MEAN CORPUSCULAR HGB CONC 32.8 g/dl (32.0-36.5); MEAN CORPUSCULAR VOLUME 89.4 fl (80.0-96.0); RED BLOOD COUNT 3.21 10^6/uL (4.00-5.40); WHITE BLOOD COUNT 21.4 10^3/uL (4.0-10.0)
[2020-09-13 20:59] LABS: PLATELET COUNT, AUTOMATED 55 10^3/uL (150-450)
[2020-09-13 21:23] LABS: LYMPHOCYTES 6 % (16-44); METAMYELOCYTES 1 % (0-0); MONOCYTES 7 % (0-5); NEUTROPHILS 82 % (28-66)
[2020-09-13 21:24] LABS: ANISOCYTOSIS 2+; OVALOCYTES 1+; POIKILOCYTOSIS 2+; POLYCHROMASIA 1+
[2020-09-13 21:25] LABS: PLATELET ESTIMATE MARKED DECREASE (NORMAL)
[2020-09-13 22:00] VITALS: BP 98/52
[2020-09-13 22:13] LABS: MAGNESIUM LEVEL 1.9 MG/DL (1.8-2.4); POTASSIUM SERUM 2.8 MEQ/L (3.5-5.1)
[2020-09-13 22:44] VITALS: O2SAT 92
[2020-09-14] MEDS ORDERED: POTASSIUM CHLORIDE 10 MEQ SR TABLET PO ONE ×2 (00:30→19:45)
[2020-09-14 06:00] VITALS: BP 100/48
[2020-09-14 06:23] LABS: HEMATOCRIT 30.3 % (36.0-47.0); HEMOGLOBIN 10.1 g/dl (12.0-15.5); MEAN CORPUSCULAR HEMOGLOBIN 30.1 pg (27.0-33.0); MEAN CORPUSCULAR HGB CONC 33.3 g/dl (32.0-36.5); MEAN CORPUSCULAR VOLUME 90.2 fl (80.0-96.0); RED BLOOD COUNT 3.36 10^6/uL (4.00-5.40); WHITE BLOOD COUNT 21.8 10^3/uL (4.0-10.0)
[2020-09-14 06:28] LABS: PLATELET COUNT, AUTOMATED 64 10^3/uL (150-450)
[2020-09-14 06:54] LABS: PARTIAL THROMBOPLASTIN TIME 106.1 SECONDS (24.2-38.5)
[2020-09-14 07:09] LABS: ALT/SGPT 9 U/L (12-78); BILIRUBIN,TOTAL 0.3 MG/DL (0.2-1.0); BLOOD UREA NITROGEN 9 MG/DL (7-18); CALCIUM LEVEL 7.9 MG/DL (8.8-10.2); CARBON DIOXIDE LEVEL 22 MEQ/L (21-32); CHLORIDE LEVEL 113 MEQ/L (98-107); CREATININE FOR GFR 0.81 MG/DL (0.55-1.30); GLOMERULAR FILTRATION RATE > 60.0 (>39); GLUCOSE, FASTING 79 MG/DL (70-100); SODIUM LEVEL 143 MEQ/L (136-145); TOTAL PROTEIN 4.6 GM/DL (6.4-8.2)
[2020-09-14] MEDS ORDERED: KCL 10MEQ/100ML SWI (KRUN) 10 MEQ in IV 1 EA IV ONE (08:00)
[2020-09-14 08:10] LABS: MAGNESIUM LEVEL 1.9 MG/DL (1.8-2.4)
[2020-09-14 09:09] LABS: INR 1.37; PROTHROMBIN TIME 17.2 SECONDS (12.5-14.3)
[2020-09-14] MEDS: SIMETHICONE 80 MG CHEW TAB PO SCH ×2 (10:13→21:17)
[2020-09-14] MEDS: ESCITALOPRAM OXALATE 10 MG TAB (LEXAPRO) PO SCH (10:14)
[2020-09-14] MEDS: SODIUM CHLORIDE 0.9% INJ 10 ML SYR IV SCH (10:14)
[2020-09-14] MEDS: LACTOBACILLUS ACIDOPHILUS CAP (BACID) PO SCH ×4 (10:14→21:17)
[2020-09-14] MEDS: LEVOTHYROXINE 88MCG TABLET (0.088 MG) PO SCH (10:17)
--- NOTE | 2020-09-14 11:46 | IPNPDOC ---
Text Note Date of Service The patient was seen on 09/14/20. NOTE SUBJECTIVE: Patient seen and examined at bedside. No acute overnight events reported. No new medical complaints this morning. OBJECTIVE: VITAL SIGNS: Please see below GENERAL: NAD, chronically ill appearing HEENT: NC/AT CARDIOVASCULAR: + S1S2, RRR LUNGS: CTAB, no W/R/R CHEST: Port right upper chest ABDOMEN:. Soft, nondistended, no tenderness, no rebound tenderness or guarding. Normoactive bowel sounds. EXTREMITIES: No edema. A/P: 70F with PMHx including pancreatic adenocarcinoma stage III, currently on neoadjuvant chemotherapy who presented to the [facility] emergency Department with neutropenic fever, nausea, vomiting and diarrhea. #neutropenic fever possibly 2/2 to PNA vs. enteritis, resolved sepsis -WBC trending up - has been on neupogen -ANC on admission 18 -GI panel still pending -CXR: could not r/o PNA. Sputum cx ordered but has not been able to be produced -paracentesis pending for today -C/w abx - transitioned to levaquin as per heme/onc -follow as per onc - Dr. Mckinnon assistance appreciated #Left lower lobe pulmonary embolism, Left common femoral vein thrombosis likely 2/2 to hypercoaguable state, malignancy -Continue with heparin gtt until discharge per heme/onc, regular lab checks with low PLTs -Likely start on eliquis BID when patient ready for discharge. #Pancytopenia, acute thrombocytopenia likely 2/2 to chemotherapy -Patient received chemo on 08/31/20, at that time PLTs 120 -On admission 35 -PT/PTT and CBC daily #Chronic anemia -S/p 1 unit PRBC, no s/s of bleeding -No hx of CAD, CHF, patient asymptomatic currently -Transfuse <8 -CBC daily #Nausea, vomiting, diarrhea likely 2/2 to either chemotherapy vs. infection- improved -C/w IVFs, zofran PRN -F/u all micro -Abx above #Adenocarcinoma of the pancreas stage III, status post Whipple procedure in April 2020 -Patient currently on neoadjuvant FOLFIRONOX chemotherapy, last does 08/31/20 -She does have ascites on physical exam, which is likely malignant in origin. -Dr. Mckinnon heme/onc #Abdominal and pelvic ascites with abdominal and pelvic peritoneal stranding -diagnostic +/- therapeutic paracentesis today #Hypothyroidism -c/w home med #hypokalemia - continue to follow and replete as needed #Depression/anxiety -Continue Lexapro #DVT prophylaxis -heparin gtt as above DISPOSITION: paracentesis today, anticipating discharge home in 24 hours VS,Fishbone, I+O VS, Fishbone, I+O Laboratory Tests 09/13/20 17:14 09/13/20 20:49 09/13/20 21:38 09/14/20 06:08 Vital Signs Date Time Temp Pulse Resp B/P (MAP) Pulse Ox O2 Delivery O2 Flow Rate FiO2 09/14/20 06:00 97.3 67 16 100/48 (65) 92 Room Air 09/10/20 03:50 2.0 I&O- Last 24 Hours up to 6 AM 09/14/20 06:00 Intake Total 1566 ml Output Total 0 ml Balance 1566 ml DIANA ORTIZ MD Sep 14, 2020 11:46
[2020-09-14 13:18] VITALS: O2SAT 94
[2020-09-14] MEDS: KCL 10MEQ/100ML SWI (KRUN) 10 MEQ in IV 1 EA IV SCH ×3 (13:44→16:25)
[2020-09-14] MEDS ORDERED: SODIUM BICARBONATE 8.4% INJ 50MEQ 50 ML VIAL As Ordered ONE (14:02)
--- NOTE | 2020-09-14 14:51 | REP ---
INDICATION: eval ascites. COMPARISON: CT 09/09/2020. TECHNIQUE: Real-time sonographic evaluation of abdomen performed. FINDINGS: Large amount of ascites is seen throughout the abdomen. Ultrasound-guided paracentesis will be performed. IMPRESSION: Large amount of abdominal ascites. <Electronically signed by Justin Cervantes > 09/14/20 1449
[2020-09-14] MEDS ORDERED: ELIQ5TAB PO (15:05)
[2020-09-14 15:11] LABS: SPEC. GRAVITY BODY FLUIDS 1.015 (NOT ESTABLISHED)
[2020-09-14 15:30] LABS: APPEARANCE, BODY FLUID CLEAR (CLEAR); ASCITES FL COLOR YELLOW (COLORLESS); SOURCE, BODY FLUID ASCITES; SOURCE, BODY FLUID ALBUMIN ASCITES; SOURCE, BODY FLUID GLUCOSE ASCITES; SOURCE, BODY FLUID TOT PROTEIN ASCITES; TOTAL PROTEIN, BODY FLUID 1.9 G/DL (NOT ESTABLISHED)
[2020-09-14 15:38] VITALS: BP 94/48
[2020-09-14] MEDS ORDERED: NS 250 ML IV ONE (16:00)
[2020-09-14] MEDS ORDERED: APIXABAN 5 MG TAB (ELIQUIS) PO SCH (16:00)
[2020-09-14 17:10] VITALS: BP 103/50
[2020-09-14] MEDS: SODIUM CHLORIDE 0.9% INJ 10 ML SYR IV PRN (18:21)
[2020-09-14] MEDS: APIXABAN 5 MG TAB (ELIQUIS) PO SCH (18:22)
[2020-09-14 22:00] VITALS: BP 92/51
[2020-09-15 06:00] VITALS: BP 92/50
[2020-09-15 06:30] LABS: HEMATOCRIT 31.9 % (36.0-47.0); HEMOGLOBIN 10.4 g/dl (12.0-15.5); MEAN CORPUSCULAR HEMOGLOBIN 29.6 pg (27.0-33.0); MEAN CORPUSCULAR HGB CONC 32.6 g/dl (32.0-36.5); MEAN CORPUSCULAR VOLUME 90.9 fl (80.0-96.0); RED BLOOD COUNT 3.51 10^6/uL (4.00-5.40)
[2020-09-15 06:33] LABS: PLATELET COUNT, AUTOMATED 87 10^3/uL (150-450); WHITE BLOOD COUNT 22.4 10^3/uL (4.0-10.0)
[2020-09-15 06:51] LABS: LYMPHOCYTES 4 % (16-44); MONOCYTES 2 % (0-5); NEUTROPHILS 93 % (28-66); PLATELET ESTIMATE MARKED DECREASE (NORMAL)
[2020-09-15 07:04] LABS: ALBUMIN 2.1 GM/DL (3.2-5.2); ALT/SGPT 13 U/L (12-78); BILIRUBIN,TOTAL 0.2 MG/DL (0.2-1.0); BLOOD UREA NITROGEN 12 MG/DL (7-18); CALCIUM LEVEL 7.9 MG/DL (8.8-10.2); CARBON DIOXIDE LEVEL 21 MEQ/L (21-32); CHLORIDE LEVEL 113 MEQ/L (98-107); CREATININE FOR GFR 0.78 MG/DL (0.55-1.30); GLOMERULAR FILTRATION RATE > 60.0 (>39); GLUCOSE, FASTING 76 MG/DL (70-100); POTASSIUM SERUM 3.1 MEQ/L (3.5-5.1); SODIUM LEVEL 142 MEQ/L (136-145)
[2020-09-15] MEDS ORDERED: POTASSIUM CHLORIDE 10 MEQ SR TABLET PO ONE (07:45)
[2020-09-15] MEDS: APIXABAN 5 MG TAB (ELIQUIS) PO SCH (08:07)
[2020-09-15] MEDS: LEVOTHYROXINE 88MCG TABLET (0.088 MG) PO SCH (08:07)
[2020-09-15] MEDS: LACTOBACILLUS ACIDOPHILUS CAP (BACID) PO SCH ×2 (08:07→13:19)
[2020-09-15] MEDS: SIMETHICONE 80 MG CHEW TAB PO SCH (08:07)
[2020-09-15] MEDS: ESCITALOPRAM OXALATE 10 MG TAB (LEXAPRO) PO SCH (08:08)
[2020-09-15] MEDS: SODIUM CHLORIDE 0.9% INJ 10 ML SYR IV SCH (08:08)
[2020-09-15] MEDS: KCL 10MEQ/100ML SWI (KRUN) 10 MEQ in IV 1 EA IV SCH ×4 (08:08→14:54)
--- NOTE | 2020-09-15 08:09 | REP ---
INDICATION: diagnostic/therapeutic if sufficient volume The patient has a history of ascites COMPARISON: None. TECHNIQUE: The procedure was performed by Kya Woods [facility], under the direct supervision of Dr. Rivera The risks and benefits of the procedure were explained to the patient and an informed consent was obtained both verbally and written. Directly prior to the start of the procedure a formal time-out was completed in the procedure room. The largest pocket of fluid was localized in the left flank using ultrasound guidance. The skin was prepped and draped in a sterile fashion. Eleven ML of buffered lidocaine was used as a local anesthetic. An 8-Spanish multi side-hole catheter was inserted using trocar technique. FINDINGS: 3200 mL of yellow ascites was removed in total, 1250 mL was sent to the laboratory for analysis, and the rest was discarded. The patient tolerated the procedure well and there were no immediate complications. After the appropriate amount of monitored convalescence, the patient was discharged from the department. IMPRESSION: Ultrasound-guided paracentesis with removal of 3200 mL of ascites. <Electronically signed by Kya Woods > 09/14/20 1624 <Electronically signed by Melvin Rivera > 09/15/20 0833
[2020-09-15 08:24] LABS: MAGNESIUM LEVEL 1.9 MG/DL (1.8-2.4)
[2020-09-15 09:00] VITALS: O2SAT 94
[2020-09-15] MEDS ORDERED: POTA20TA6 PO (10:10)
[2020-09-15] MEDS ORDERED: MAG SULF 1GM/100ML (MAG RUN) 1 GM in IV 1 EA IV ONE (10:15)
[2020-09-15 13:01] LABS: MAGNESIUM LEVEL 2.4 MG/DL (1.8-2.4); POTASSIUM SERUM 3.3 MEQ/L (3.5-5.1)
[2020-09-15 14:00] VITALS: BP 108/48
--- NOTE | 2020-09-15 14:02 | DS.PDOC ---
Discharge Summary General Date of Admission Sep 10, 2020 at 00:16 Date of Discharge 09/15/20 Discharge Summary PROCEDURES PERFORMED DURING STAY: paracentesis ADMITTING DIAGNOSES: #neutropenic fever possibly 2/2 to PNA vs. enteritis, resolved sepsis #Left lower lobe pulmonary embolism, Left common femoral vein thrombosis likely 2/2 to hypercoaguable state, malignancy #Pancytopenia, acute thrombocytopenia likely 2/2 to chemotherapy #Chronic anemia #Nausea, vomiting, diarrhea likely 2/2 to either chemotherapy vs. infection- improved #Adenocarcinoma of the pancreas stage III, status post Whipple procedure in April 2020 #Abdominal and pelvic ascites with abdominal and pelvic peritoneal stranding #Hypothyroidism #hypokalemia #Depression/anxiety PAST MEDICAL HISTORY: 1. Adenocarcinoma of the pancreas stage III diagnosed in August 2019 currently on neoadjuvant FOLFIRONOX chemotherapy 2. GERD 3. Hypothyroidism 4. Degenerative joint disease 5. CAD 6. Superior Mesenteric Vein Thrombosis PAST SURGICAL HISTORY: 1. Hysterectomy 2. Whipple 3. ERCP with sphincterotomy and biliary stent placement COMPLICATIONS/CHIEF COMPLAINT: Neutropenic Fever. HISTORY OF PRESENT ILLNESS: Patient is a 70-year-old female with a past medical history significant for pancreatic adenocarcinoma, stage III, currently on neoadjuvant FOLFIRONOX chemotherapy, GERD, hypothyroidism, degenerative joint disease, coronary artery disease and history of spearmint mesenteric vein thrombosis presented to [facility] emergency department with complaint of nausea, vomiting and diarrhea for 3 days. Patient received her last chemotherapy treatment on Saturday necessarily developed nausea, vomiting and diarrhea. She additionally takes Imodium for diarrhea as well as Zofran for her nausea. She states that it did not get better and she continued to get worse. She stated that she did have some pain in her abdomen. On presentation to the emergency department the patient was found to be vitally stable, although she was febrile. She was found to be neutropenic with absolute neutrophil count 118 cells per microliter. . She received abdominal pelvis CT which demonstrated filling defects in the pulmonary valve branches. The left lower lobe consistent with poor embolism area of hypodensity left Lisette vein axis with a possible thrombus large amount of abdominal pelvic ascites stranding of the abdominal pelvic peritoneum areas of small bowel wall thickening suggestive of enteritis. Hospitalist service was consultative the patient is very further evaluation management HOSPITAL COURSE: 70F with PMHx including pancreatic adenocarcinoma stage III, currently on neoadjuvant chemotherapy who presented to the [facility] emergency Department with neutropenic fever, nausea, vomiting and diarrhea. #neutropenic fever possibly 2/2 to PNA vs. enteritis, resolved sepsis -WBC trending up - plateaued - has been on neupogen -ANC on admission 18 -GI panel negative -CXR: could not r/o PNA. Sputum cx ordered but has not been able to be produced -C/w abx - transitioned to levaquin as per heme/onc -follow as per onc - Dr. Mckinnon assistance appreciated #Left lower lobe pulmonary embolism, Left common femoral vein thrombosis likely 2/2 to hypercoaguable state, malignancy - eliquis BID s/p heparin gtt #Pancytopenia, acute thrombocytopenia likely 2/2 to chemotherapy -Patient received chemo on 08/31/20, at that time PLTs 120 -On admission 35 #Chronic anemia -S/p 1 unit PRBC, no s/s of bleeding #Nausea, vomiting, diarrhea likely 2/2 to either chemotherapy vs. infection- improved #Adenocarcinoma of the pancreas stage III, status post Whipple procedure in April 2020 -Patient currently on neoadjuvant FOLFIRONOX chemotherapy, last does 08/31/20 -Dr. Mckinnon heme/onc #Abdominal and pelvic ascites with abdominal and pelvic peritoneal stranding #Hypothyroidism -c/w home med #hypokalemia - continue to follow and replete as needed #Depression/anxiety -Continue Lexapro DISCHARGE MEDICATIONS: Please see below. ALLERGIES: Please see below. PHYSICAL EXAMINATION ON DISCHARGE: VITAL SIGNS: Please see below GENERAL: NAD, chronically ill appearing HEENT: NC/AT CARDIOVASCULAR: + S1S2, RRR LUNGS: CTAB, no W/R/R CHEST: Port right upper chest ABDOMEN:. Soft, nondistended, no tenderness, no rebound tenderness or guarding. Normoactive bowel sounds. EXTREMITIES: No edema. LABORATORY DATA: Please see below. PROGNOSIS: Poor ACTIVITY: [As tolerated]. DISPOSITION: Discharge home/services. DISCHARGE INSTRUCTIONS: 1. Follow up PCP in 3-5 days. 2. Follow up potassium and magnesium levels in 1-3 days. 3. Follow up oncology as scheduled or in 3-10 days. DISCHARGE CONDITION: [Stable]. TIME SPENT ON DISCHARGE: 35 minutes. Vital Signs/I&Os Vital Signs Date Time Temp Pulse Resp B/P (MAP) Pulse Ox O2 Delivery O2 Flow Rate FiO2 09/15/20 09:00 94 Room Air 09/15/20 06:00 98.1 63 18 92/50 (64) 09/10/20 03:50 2.0 I&O- Last 24 Hours up to 6 AM 09/15/20 05:59 Intake Total 1068 ml Output Total 0 ml Balance 1068 ml Laboratory Data Labs 24H Laboratory Tests 2 09/14/20 14:30: Body Fluid Source ASCITES, Body Fluid Color YELLOW, Body Fluid Appearance CLEAR, Body Fluid Specific [place] 1.015, Body Fluid WBC (Auto) 37H, Body Fluid RBC (Auto) < 2, Body Fluid Mononuclear Cells % Auto 83.7H, Fluid Polymorphonuclear Cell % Auto 16.3H, Body Fluid Glucose Source ASCITES, Body Fluid Glucose 79, Body Fluid Protein Source ASCITES, Body Fluid Total Protein 1.9, Body Fluid Albumin Source ASCITES, Body Fluid Albumin 1.0 09/15/20 05:53: Immature Granulocyte % (Auto) , Neutrophils (%) (Auto) , Nucleated Red Blood Cells % (auto) 0.0, Neutrophils 93H, Band Neutrophils 1, Lymphocytes (Manual) 4L, Monocytes (Manual) 2, Red Blood Cell Morphology NORMAL, Platelet Estimate MARKED DECREASE, Immature Platelet Fraction 4.6, Anion Gap 8, Glomerular Filtration Rate > 60.0, Calcium Level 7.9L, Magnesium Level 1.9, Total Bilirubin 0.2, Aspartate Amino Transf (AST/SGOT) 16, Alanine Aminotransferase (ALT/SGPT) 13, Alkaline Phosphatase 138H, Total Protein 5.0L, Albumin 2.1L, Albumin/Globulin Ratio 0.7L 09/15/20 12:30: Magnesium Level 2.4 CBC/BMP Laboratory Tests 09/14/20 17:57 09/15/20 05:53 09/15/20 12:30 Microbiology Microbiology 09/14/20 Gram Stain - Final, Resulted 09/14/20 Body Fluid Culture, Resulted Pending 09/14/20 Stool Occult Blood (ARMIDA) - Final, Complete 09/11/20 Stool Occult Blood (ARMIDA) - Final, Complete 09/10/20 Campylobacter (PCR) - Final, Complete 09/10/20 Clostridium difficile Toxin A&B PCR - Final, Complete 09/10/20 Plesiomonas shigelloides (PCR) - Final, Complete 09/10/20 Salmonella (PCR)(ARMIDA) - Final, Complete 09/10/20 Vibrio Species (PCR) - Final, Complete 09/10/20 Vibrio Cholerae (PCR) - Final, Complete 09/10/20 Yersinia enterocolitica (PCR) - Final, Complete 09/10/20 Enteroaggregative E. coli (PCR) - Final, Complete 09/10/20 Enteropathogenic E. coli (PCR) - Final, Complete 09/10/20 Enterotoxigenic E. coli (PCR) - Final, Complete 09/10/20 E. coli Shiga-like Toxin (PCR) - Final, Complete 09/10/20 Escherichia coli 0157 (PCR) - Final, Complete 09/10/20 Enteroinvasive E. coli/Shigella PCR - Final, Complete 09/10/20 Cryptosporidium (PCR) - Final, Complete 09/10/20 Cyclospora cayetanensis (PCR) - Final, Complete 09/10/20 Entamoeba histolytica (PCR) - Final, Complete 09/10/20 Giardia lamblia (PCR) - Final, Complete 09/10/20 Adenovirus Type F 40/41 (PCR) - Final, Complete 09/10/20 Astrovirus (PCR) - Final, Complete 09/10/20 Norovirus GI/GII (PCR) - Final, Complete 09/10/20 Rotavirus A (PCR) - Final, Complete 09/10/20 Sapovirus I/II/IV/V (PCR) - Final, Complete 09/10/20 Urine Culture - Final, Complete 09/10/20 Blood Culture - Final, Complete NO GROWTH AFTER 5 DAYS 09/10/20 Blood Culture - Final, Complete NO GROWTH AFTER 5 DAYS Discharge Medications Scheduled Apixaban (Eliquis) 5 Mg Tablet, 10 MG PO BID Aspirin (Aspirin) 325 Mg Tablet, 325 MG PO DAILY, (Reported) Escitalopram Oxalate (Lexapro) 10 Mg Tablet, 10 MG PO DAILY, (Reported) Levothyroxine Sodium (Synthroid) 88 Mcg Tablet, 88 MCG PO DAILY, (Reported) Lidocaine/Prilocaine (Lidocaine-Prilocaine Cream) 2.5%/2.5% Cream..g., 1 DOSE TOP ASDIRECTED Apply dime size to port area. Do not rub in, cover with saran wrap to protect clothing. Lipase/Protease/Amylase ([place] 36,000 Units Capsule) 1 Each Capsule.dr, 2 CAP PO TID, (Reported) WITH MEALS Omeprazole (Omeprazole) 40 Mg Capsule.dr, 40 MG PO BID Potassium Chloride (Potassium Chloride) 20 Meq Tab.er.prt, 1 TAB PO DAILY Simethicone (Gas Relief) 80 Mg Tab.chew, 80 MG PO BID, (Reported) Scheduled PRN Diphenoxylate HCl/Atropine (Lomotil 2.5-0.025 mg Tablet) 1 Each Tablet, 1 TAB PO Q6H PRN for DIARRHEA Hydrocodone/Acetaminophen (Hydrocodone-Acetamin 10-325 mg) 1 Each Tablet, 1 TAB PO Q6H PRN for PAIN, (Reported) Lipase/Protease/Amylase (Creon Dr 36,000 Units Capsule) 1 Each Capsule.dr, 1 CAP PO DAILY PRN for WITH SNACKS, (Reported) Lorazepam (Ativan) 0.5 Mg Tablet, 0.5 MG PO ASDIRECTED PRN for NAUSEA Take 0.5 mg po q 6 hours prn nausea uncontrolled by Zofran or Compazine Prochlorperazine Maleate (Prochlorperazine Maleate) 10 Mg Tablet, 10 MG PO Q6-8H P PRN for NAUSEA TAKE 10 MG PO Q6-8 HOURS NEEDED FOR VOMITING DESPITE ONDANSETRON Allergies Coded Allergies: No Known Allergies (Unverified , 08/29/19) DIANA ORTIZ MD Sep 15, 2020 14:01
[2020-09-15] MEDS ORDERED: LEVO750T13 PO (14:07)
[2020-09-15] MEDS: SODIUM CHLORIDE 0.9% INJ 10 ML SYR IV PRN (14:55)
== END 2020-09-15 16:55 | disposition home or self-care (01) | DRG 871 ==
LOC: M ED 18:56 → EDBD 18:56 → M ED INP 09-10 00:16 → M PCU 09-10 03:43 → M MSPAV 09-10 12:50
PROVIDERS: ADMIT Internal Medicine; ATTEND Internal Medicine
PROC: 30233N1 Transfusion of Nonautologous Red Blood Cells into Peripheral Vein, Percutaneous Approach (ICD-10-PCS; 2020-09-12)
PROC: 0W9G3ZZ Drainage of Peritoneal Cavity, Percutaneous Approach (ICD-10-PCS; principal; 2020-09-14 14:15)
DX: A41.9 Sepsis, unspecified organism (principal); D61.810 Antineoplastic chemotherapy induced pancytopenia; I26.99 Other pulmonary embolism without acute cor pulmonale; J18.9 Pneumonia, unspecified organism; R18.0 Malignant ascites; C25.9 Malignant neoplasm of pancreas, unspecified; I82.412 Acute embolism and thrombosis of left femoral vein; D70.9 Neutropenia, unspecified; E87.6 Hypokalemia; K52.9 Noninfective gastroenteritis and colitis, unspecified; E03.9 Hypothyroidism, unspecified; K21.9 Gastro-esophageal reflux disease without esophagitis; I25.10 Atherosclerotic heart disease of native coronary artery without angina pectoris; Z79.899 Other long term (current) drug therapy; Z79.82 Long term (current) use of aspirin; F41.9 Anxiety disorder, unspecified; F32.9 Major depressive disorder, single episode, unspecified; D69.6 Thrombocytopenia, unspecified; Z87.891 Personal history of nicotine dependence; D64.9 Anemia, unspecified

== ENCOUNTER → 2020-10-17 | Outpatient (CLI) | payer MEDICARE, OTHER ==
[~2020-10-17] MED LIST changes: +ELIQ5TAB PO; +FURO40TA2 PO; +HYDR-3719 PO; +LEVO750T13 PO; -LISI-538 PO; +LISI20TA33 PO; +POTA20TA6 PO; +SYNT88TA2 PO
[2020-10-17 13:27] VITALS: BP 124/62
--- NOTE | 2020-10-17 15:45 | REP ---
INDICATION: ASCITES. COMPARISON: None. TECHNIQUE: The procedure was performed under the direct supervision of Dr. Cervantes. The risks and benefits of the procedure were explained to the patient and informed consent was obtained. The risks and benefits of the procedure were explained to the patient and informed consent was obtained. The largest pocket of fluid was localized in the right flank using ultrasound guidance. The skin was prepped and draped in a sterile fashion. 1% lidocaine was used as a local anesthetic. An 8-Polish multi side-hole catheter was inserted using trocar technique. 9800 cc of yellow fluid was withdrawn and discarded. The patient tolerated the procedure well and there were no immediate complications. After the appropriate amount of monitored convalescence, the patient was discharged from the department. FINDINGS: None IMPRESSION: Ultrasound-guided paracentesis yielding 9800 cc of yellow fluid. <Electronically signed by Cesar Jones > 10/17/20 1536 <Electronically signed by Justin Cervantes > 10/17/20 0199
== END ==
LOC: M IRPRO 11:26
PROVIDERS: ATTEND Specialist
DX: R18.8 Other ascites (principal); C25.9 Malignant neoplasm of pancreas, unspecified

== ENCOUNTER → 2020-10-28 | Outpatient (CLI) | payer MEDICARE, OTHER ==
[2020-10-28 14:40] VITALS: BP 101/51
--- NOTE | 2020-10-28 16:31 | REP ---
INDICATION: ASCITES. COMPARISON: None. TECHNIQUE: The procedure was performed under the direct supervision of Dr. Rivera. The risks and benefits of the procedure were explained to the patient and informed consent was obtained. The risks and benefits of the procedure were explained to the patient and informed consent was obtained. The largest pocket of fluid was localized in the right flank using ultrasound guidance. The skin was prepped and draped in a sterile fashion. 1% lidocaine was used as a local anesthetic. An 8-Guamanian multi side-hole catheter was inserted using trocar technique. 39603 cc of pale yellow fluid was withdrawn with a sample sent to the lab for analysis. The patient tolerated the procedure well and there were no immediate complications. After the appropriate amount of monitored convalescence, the patient was discharged from the department. FINDINGS: None IMPRESSION: Ultrasound-guided paracentesis yielding 40322 cc of pale yellow fluid with a sample sent to the lab for analysis. <Electronically signed by Cesar Jones > 10/28/20 [id number] <Electronically signed by Melvin Rivera > 10/28/20 [id number]
== END ==
LOC: M IRPRO 13:37
PROVIDERS: ATTEND Specialist
DX: R18.8 Other ascites (principal)

== ENCOUNTER → 2020-11-22 | Outpatient (CLI) | payer MEDICARE, OTHER ==
[~2020-11-22] MED LIST changes: +SODIUM BICARBONATE 8.4% INJ 50MEQ 50 ML VIAL As Ordered ONE
[2020-11-22 12:30] VITALS: BP 109/68
--- NOTE | 2020-11-22 20:00 | REP ---
INDICATION: MASSIVE ASCITES The patient has a history of ascites COMPARISON: None. TECHNIQUE: The procedure was performed by MARYCHUY Nicole, under the direct supervision of Dr. Cervantes The risks and benefits of the procedure were explained to the patient and an informed consent was obtained both verbally and written. Directly prior to the start of the procedure a formal time-out was completed in the procedure room. The largest pocket of fluid was localized in the right flank using ultrasound guidance. The skin was prepped and draped in a sterile fashion. Eleven ML of buffered lidocaine was used as a local anesthetic. An 8-Citizen Of [place] multi side-hole catheter was inserted using trocar technique. FINDINGS: 42609 mL of yellow ascites was removed, 1300 mL was sent to the laboratory for further analysis, and the rest was discarded. The patient tolerated the procedure well and there were no immediate complications. After the appropriate amount of monitored convalescence, the patient was discharged from the department. IMPRESSION: [place] [address] [place] of yellow ascites. <Electronically signed by Kya Woods > 11/22/20 1206 <Electronically signed by Justin Cervantes > 11/22/20 1956
== END ==
LOC: M IRPRO 09:49
PROVIDERS: ATTEND Specialist
DX: R18.8 Other ascites (principal); D64.9 Anemia, unspecified

== ENCOUNTER → 2020-12-09 | Outpatient (CLI) | payer MEDICARE, OTHER ==
[2020-12-09 10:53] LABS: HEMATOCRIT 25.3 % (36.0-47.0); HEMOGLOBIN 7.9 g/dl (12.0-15.5); MEAN CORPUSCULAR HEMOGLOBIN 34.2 pg (27.0-33.0); MEAN CORPUSCULAR HGB CONC 31.2 g/dl (32.0-36.5); MEAN CORPUSCULAR VOLUME 109.5 fl (80.0-96.0); RED BLOOD COUNT 2.31 10^6/uL (4.00-5.40); WHITE BLOOD COUNT 5.2 10^3/uL (4.0-10.0)
[2020-12-09 11:19] LABS: PLATELET COUNT, AUTOMATED 57 10^3/uL (150-450)
[2020-12-09 11:22] LABS: ANISOCYTOSIS 1+; ATYPICAL LYMPH 2 % (0-5); LYMPHOCYTES 19 % (16-44); MONOCYTES 9 % (0-5); NEUTROPHILS 70 % (28-66); PLATELET ESTIMATE MARKED DECREASE (NORMAL)
[2020-12-09 11:42] VITALS: BP 110/56
[2020-12-09 12:30] LABS: ALT/SGPT 61 U/L (12-78); BILIRUBIN,TOTAL 0.5 MG/DL (0.2-1.0); BLOOD UREA NITROGEN 16 MG/DL (7-18); CA19-9 TUMOR MARKER,CARBOHYDRA 29.5 U/ML (<35.0); CALCIUM LEVEL 8.3 MG/DL (8.8-10.2); CARBON DIOXIDE LEVEL 25 MEQ/L (21-32); CHLORIDE LEVEL 107 MEQ/L (98-107); CREATININE FOR GFR 0.44 MG/DL (0.55-1.30); GLOMERULAR FILTRATION RATE > 60.0 (>39); GLUCOSE, FASTING 76 MG/DL (70-100); POTASSIUM SERUM 4.7 MEQ/L (3.5-5.1); SODIUM LEVEL 139 MEQ/L (136-145)
--- NOTE | 2020-12-09 13:45 | REP ---
INDICATION: ASCITES The patient has a history of ascites COMPARISON: None. TECHNIQUE: The procedure was performed by MARYCHUY Nicole, under the direct supervision of Dr. Rivera The risks and benefits of the procedure were explained to the patient and an informed consent was obtained both verbally and written. Directly prior to the start of the procedure a formal time-out was completed in the procedure room. The largest pocket of fluid was localized in the right flank using ultrasound guidance. The skin was prepped and draped in a sterile fashion. Eleven ML of buffered lidocaine was used as a local anesthetic. An 8-Turkmen multi side-hole catheter was inserted using trocar technique. FINDINGS: 61695 mL of clear yellow ascites was removed in total, 1300 was sent to the laboratory for further analysis, and the rest was discarded. The patient tolerated the procedure well and there were no immediate complications. After the appropriate amount of monitored convalescence, the patient was discharged from the department. IMPRESSION: [place] [address] [place] of clear yellow ascites. <Electronically signed by Kya Woods > 12/09/20 1337 <Electronically signed by Melvin Rivera > 12/09/20 1341
== END ==
LOC: M IRPRO 09:17
PROVIDERS: ATTEND Specialist
DX: R18.8 Other ascites (principal)

== ENCOUNTER → 2020-12-21 | Outpatient (CLI) | payer MEDICARE, OTHER ==
[~2020-12-21] MED LIST changes: +GASTROGRAFIN SOLUTION 30ML (Q9963) As Ordered ONE; +ISOVUE-370 76% 100ML VIAL As Ordered ONE; +LIDO1CRE42 TOP; -LIDO2.5C15 TOP; -SIME80TA10 PO; +SIME80TA5 PO; -SODIUM BICARBONATE 8.4% INJ 50MEQ 50 ML VIAL As Ordered ONE
--- NOTE | 2020-12-21 18:55 | REP ---
INDICATION: PANCREATIC CA. COMPARISON: 08/29/2020. TECHNIQUE: CT chest performed following the intravenous administration of 100 cc of Isovue 370. Sagittal and coronal reconstruction images are performed. FINDINGS: Lungs: No suspicious pulmonary nodule is seen. There is bibasilar fibro atelectatic change which appears similar to the prior study. Mediastinum: No adenopathy. Antonia: No adenopathy. Axilla: No adenopathy. Pleura: No effusion. Heart: Not enlarged. Thoracic aorta: No aneurysm or dissection. Right central venous catheter is noted with the tip in the region of the junction of superior vena cava and right atrium. Visualized osseous structures: Unremarkable. IMPRESSION: No suspicious pulmonary nodule or adenopathy. Bibasilar fibro atelectatic change. <Electronically signed by Justin Cervantes > 12/21/20 [id number]
--- NOTE | 2020-12-21 19:07 | REP ---
INDICATION: PANCREATIC CA COMPARISON: 09/09/2020. TECHNIQUE: CT Scan of the abdomen and pelvis was performed with intravenous administration of 100 cc of Isovue 370, and oral contrast. FINDINGS: Liver: No suspicious nodule seen Gallbladder: Not visualized. Spleen: Normal. Adrenals: Normal. Pancreas: Postsurgical changes again seen in the pancreatic head, appearing stable. Kidneys: Mild cortical thinning. Small and large bowel: Unremarkable. Free fluid: There is a very large amount of diffuse ascites which has increased since the prior study. There is diffuse superficial soft tissue edema. Abdominal aorta: No aneurysm or dissection. Adenopathy: None. Appendix: Not inflamed. Osseous structures: Unremarkable. Pelvis: No mass. Prior hysterectomy. IMPRESSION: Very large amount of abdominal and pelvic ascites has mildly increased since the prior study. No other significant new finding compared to the prior exam. <Electronically signed by Justin Cervantes > 12/21/20 [id number]
== END ==
LOC: M RAD 16:40
PROVIDERS: ATTEND Specialist
DX: C25.9 Malignant neoplasm of pancreas, unspecified (principal)
CPT/HCPCS: 71260; 74177; Q9963; Q9967

== ENCOUNTER → 2020-12-27 | Outpatient (CLI) | payer MEDICARE, OTHER ==
[~2020-12-27] MED LIST changes: -GASTROGRAFIN SOLUTION 30ML (Q9963) As Ordered ONE; -ISOVUE-370 76% 100ML VIAL As Ordered ONE
[2020-12-27 15:31] VITALS: BP 127/58
--- NOTE | 2020-12-27 17:01 | REP ---
INDICATION: ASCITES. COMPARISON: None. TECHNIQUE: The procedure was performed under the direct supervision of Dr. Cervantes. The risks and benefits of the procedure were explained to the patient and informed consent was obtained. The largest pocket of fluid was localized in the left flank using ultrasound guidance. The skin was prepped and draped in a sterile fashion. 1% lidocaine was used as a local anesthetic. An 8-Burundian multi side-hole catheter was inserted using trocar technique.[id number] cc of low viscosity red colored fluid was withdrawn and discarded. The patient tolerated the procedure well and there were no immediate complications. After the appropriate amount of monitored convalescence, the patient was discharged from the department. FINDINGS: None IMPRESSION: Ultrasound-guided paracentesis [id number] cc of low viscosity red colored fluid. <Electronically signed by Cesar Jones > 12/27/20 1632 <Electronically signed by Justin Cervantes > 12/27/20 7900
== END ==
LOC: M IRPRO 13:45
PROVIDERS: ATTEND Specialist
DX: R18.8 Other ascites (principal); C25.9 Malignant neoplasm of pancreas, unspecified

== ENCOUNTER → 2021-01-04 | Outpatient (CLI) | payer MEDICARE, OTHER ==
[~2021-01-04] MED LIST changes: +SODIUM BICARBONATE 8.4% INJ 50MEQ 50 ML VIAL As Ordered ONE
[2021-01-04 13:47] VITALS: BP 110/60
[2021-01-04 14:23] LABS: LDH, BODY FLUID 106 U/L (NOT ESTABLISHED); SOURCE, BODY FLUID LDH ASCITES; SOURCE, BODY FLUID TOT PROTEIN ASCITES; TOTAL PROTEIN, BODY FLUID 0.7 G/DL (NOT ESTABLISHED)
--- NOTE | 2021-01-04 15:18 | REP ---
INDICATION: ASCITES The patient has a history of ascites COMPARISON: None. TECHNIQUE: The procedure was performed by MARYCHUY Nicole, under the direct supervision of Dr. Rivera The risks and benefits of the procedure were explained to the patient and an informed consent was obtained both verbally and written. Directly prior to the start of the procedure a formal time-out was completed in the procedure room. The largest pocket of fluid was localized in the left flank using ultrasound guidance. The skin was prepped and draped in a sterile fashion. Eleven ML of buffered lidocaine was used as a local anesthetic. An 8-Sierra Leonean multi side-hole catheter was inserted using trocar technique. FINDINGS: 8800 mL of clear light orange colored ascites was removed in total, 1300 mL was sent to the laboratory for further analysis, and the rest was discarded. The patient tolerated the procedure well and there were no immediate complications. After the appropriate amount of monitored convalescence, the patient was discharged from the department. IMPRESSION: Ultrasound-guided paracentesis with removal of 8800 mL of ascites. <Electronically signed by Kya Woods > 01/04/21 1436 <Electronically signed by Melvin Rivera > 01/04/21 1511
== END ==
LOC: M IRPRO 12:06
PROVIDERS: ATTEND Specialist
DX: R18.8 Other ascites (principal)

== ENCOUNTER → 2021-01-10 | Outpatient (CLI) | payer MEDICARE, OTHER ==
[~2021-01-10] MED LIST changes: -SODIUM BICARBONATE 8.4% INJ 50MEQ 50 ML VIAL As Ordered ONE
[2021-01-10 14:39] VITALS: BP 105/59
--- NOTE | 2021-01-11 13:13 | REP ---
INDICATION: ASCITES. COMPARISON: None. TECHNIQUE: The procedure was performed under the direct supervision of Dr. Cervantes. The risks and benefits of the procedure were explained to the patient and informed consent was obtained. The largest pocket of fluid was localized in the right lower quadrant using ultrasound guidance. The skin was prepped and draped in a sterile fashion. 1% lidocaine was used as a local anesthetic. An 8-Norwegian multi side-hole catheter was inserted using trocar technique.7700 cc of yellow fluid was withdrawn and discarded. The patient tolerated the procedure well and there were no immediate complications. After the appropriate amount of monitored convalescence, the patient was discharged from the department. FINDINGS: None IMPRESSION: Ultrasound-guided paracentesis [id number] cc of yellow fluid. <Electronically signed by Cesar Jones > 01/10/21 6042 <Electronically signed by Justin Cervantes > 01/11/21 1310
== END ==
LOC: M IRPRO 13:43
PROVIDERS: ATTEND Specialist
DX: R18.8 Other ascites (principal); C25.9 Malignant neoplasm of pancreas, unspecified

== ENCOUNTER → 2021-01-17 | Outpatient (CLI) | payer MEDICARE, OTHER ==
[2021-01-17 14:53] VITALS: BP 108/61
--- NOTE | 2021-01-17 20:16 | REP ---
INDICATION: ASCITES The patient has a history of ascites COMPARISON: None. TECHNIQUE: The procedure was performed by MARYCHUY Nicole, under the direct supervision of Dr. Cervantes The risks and benefits of the procedure were explained to the patient and an informed consent was obtained both verbally and written. Directly prior to the start of the procedure a formal time-out was completed in the procedure room. The largest pocket of fluid was localized in the right flank using ultrasound guidance. The skin was prepped and draped in a sterile fashion. Eleven ML of buffered lidocaine was used as a local anesthetic. An 8-Faroese multi side-hole catheter was inserted using trocar technique. FINDINGS: 6900 mL of yellow ascites was removed and discarded. The patient tolerated the procedure well and there were no immediate complications. After the appropriate amount of monitored convalescence, the patient was discharged from the department. IMPRESSION: Ultrasound-guided paracentesis with removal of 6900 mL of yellow ascites. <Electronically signed by Kya Woods > 01/17/21 1538 <Electronically signed by Justin Cervantes > 01/17/212011
== END ==
LOC: M IRPRO 12:51
PROVIDERS: ATTEND Specialist
DX: R18.8 Other ascites (principal)

== ENCOUNTER → 2021-01-24 | Outpatient (CLI) | payer MEDICARE, OTHER ==
[~2021-01-24] MED LIST changes: +SODIUM BICARBONATE 8.4% INJ 50MEQ 50 ML VIAL As Ordered ONE
[2021-01-24 14:10] VITALS: BP 105/54
--- NOTE | 2021-01-24 18:56 | REP ---
INDICATION: ASCITES The patient has a history of ascites COMPARISON: None. TECHNIQUE: The procedure was performed by MARYCHUY Nicole, under the direct supervision of Dr. Cervantes The risks and benefits of the procedure were explained to the patient and an informed consent was obtained both verbally and written. Directly prior to the start of the procedure a formal time-out was completed in the procedure room. The largest pocket of fluid was localized in the left flank using ultrasound guidance. The skin was prepped and draped in a sterile fashion. Eleven ML of buffered lidocaine was used as a local anesthetic. An 8-Sinhala multi side-hole catheter was inserted using trocar technique. FINDINGS: 7000 mL of yellow ascites was removed and discarded. The patient tolerated the procedure well and there were no immediate complications. After the appropriate amount of monitored convalescence, the patient was discharged from the department. IMPRESSION: Ultrasound-guided paracentesis with removal of 700 mL of yellow ascites. <Electronically signed by Kya Woods > 01/24/21 1651 <Electronically signed by Justin Cervantes > 01/24/21 9200
== END ==
LOC: M IRPRO 12:50
PROVIDERS: ATTEND Specialist
DX: R18.8 Other ascites (principal)

== ENCOUNTER → 2021-01-31 | Outpatient (CLI) | payer MEDICARE, OTHER ==
[~2021-01-31] MED LIST changes: +OMEP40CA4 PO; -OMEP40CA97 PO
[2021-01-31 13:50] VITALS: BP 108/64
--- NOTE | 2021-01-31 16:21 | REP ---
INDICATION: ASCITES The patient has a history of ascites COMPARISON: None. TECHNIQUE: The procedure was performed by MARYCHUY Nicole, under the direct supervision of Dr. Cervantes The risks and benefits of the procedure were explained to the patient and an informed consent was obtained both verbally and written. Directly prior to the start of the procedure a formal time-out was completed in the procedure room. The largest pocket of fluid was localized in the left flank using ultrasound guidance. The skin was prepped and draped in a sterile fashion. Eleven ML of buffered lidocaine was used as a local anesthetic. An 8-Albanian multi side-hole catheter was inserted using trocar technique. FINDINGS: 6400 mL of yellow ascites was removed and discarded. The patient tolerated the procedure well and there were no immediate complications. After the appropriate amount of monitored convalescence, the patient was discharged from the department. IMPRESSION: Ultrasound-guided paracentesis with removal of 6400 mL of yellow ascites. <Electronically signed by Kya Woods > 01/31/21 1554 <Electronically signed by Justin Cervantes > 01/31/21 2304
== END ==
LOC: M IRPRO 12:40
PROVIDERS: ATTEND Specialist
DX: R18.8 Other ascites (principal)

== ENCOUNTER → 2021-02-07 | Outpatient (CLI) | payer MEDICARE, OTHER ==
[2021-02-07 14:55] VITALS: BP 108/62
--- NOTE | 2021-02-07 16:53 | REP ---
INDICATION: ASCITES The patient has a history of ascites COMPARISON: None. TECHNIQUE: The procedure was performed by MARYCHUY Nicole, under the direct supervision of Dr. Rivera The risks and benefits of the procedure were explained to the patient and an informed consent was obtained both verbally and written. Directly prior to the start of the procedure a formal time-out was completed in the procedure room. The largest pocket of fluid was localized in the left flank using ultrasound guidance. The skin was prepped and draped in a sterile fashion. Eleven ML of buffered lidocaine was used as a local anesthetic. An 8-Citizen Of [place] multi side-hole catheter was inserted using trocar technique. FINDINGS: 6700 mL of yellow ascites was removed and discarded. The patient tolerated the procedure well and there were no immediate complications. After the appropriate amount of monitored convalescence, the patient was discharged from the department. IMPRESSION: Ultrasound-guided paracentesis with removal of 6700 mL of yellow ascites. <Electronically signed by Kya Woods > 02/07/21 1554 <Electronically signed by Melvin Rivera > 02/07/21 5516
== END ==
LOC: M IRPRO 12:57
PROVIDERS: ATTEND Specialist
DX: R18.8 Other ascites (principal)

== ENCOUNTER → 2021-02-14 | Outpatient (CLI) | payer MEDICARE, OTHER ==
[~2021-02-14] MED LIST changes: -SODIUM BICARBONATE 8.4% INJ 50MEQ 50 ML VIAL As Ordered ONE
[2021-02-14 15:09] VITALS: BP 111/54
--- NOTE | 2021-02-14 17:02 | REP ---
INDICATION: ASCITES. COMPARISON: None. TECHNIQUE: The procedure was performed under the direct supervision of Dr. Cervantes. The risks and benefits of the procedure were explained to the patient and informed consent was obtained. The largest pocket of fluid was localized in the right flank using ultrasound guidance. The skin was prepped and draped in a sterile fashion. 1% lidocaine was used as a local anesthetic. An 8-Vietnamese multi side-hole catheter was inserted using trocar technique.6300 cc of yellow fluid was withdrawn and discarded. The patient tolerated the procedure well and there were no immediate complications. After the appropriate amount of monitored convalescence, the patient was discharged from the department. FINDINGS: None IMPRESSION: Ultrasound-guided paracentesis [id number] cc of yellow fluid. <Electronically signed by Cesar Jones > 02/14/21 1637 <Electronically signed by Justin Cervantes > 02/14/21 2913
== END ==
LOC: M IRPRO 13:56
PROVIDERS: ATTEND Specialist
DX: R18.8 Other ascites (principal)

== ENCOUNTER → 2021-02-16 | Outpatient (CLI) | payer MEDICARE, OTHER ==
[2021-02-16] VITALS (7 sets, daily range): BP systolic 101–136; BP diastolic 52–81
[~2021-02-16] VITALS: Ht 165.1 cm; Wt 61.3 kg
[~2021-02-16] MED LIST changes: +ACETAMINOPHEN TAB 650MG DOSE (2X325MG) PO ONE; +SODIUM CHLORIDE 0.9% INJ 10 ML SYR IV PRN; +SODIUM CHLORIDE 0.9% INJ 10 ML SYR IV SCH; +diphenhydrAMINE 50MG CAP PO ONE
== END ==
LOC: M INFU 12:20
PROVIDERS: ATTEND Specialist
DX: D64.9 Anemia, unspecified (principal)
CPT/HCPCS: 36430; 36591; 85025; 85049; 85055; 86850; 86900; 86901; 86920; 96372; J1642; P9016; Q5106

== ENCOUNTER → 2021-02-21 | Outpatient (CLI) | payer MEDICARE, OTHER ==
[~2021-02-21] MED LIST changes: -ACETAMINOPHEN TAB 650MG DOSE (2X325MG) PO ONE; +CEFD300CAP PO; +CEPH500T PO; +LACT20EL PO; +LEVO88TA3 PO; +MED NOTE; +MED REC COMMENT; +OMEP-173 PO; -OMEP-218 PO; -OMEP-221 PO; +OMEP40CA5 PO; +POTA-151 PO; -POTA20TA6 PO; -PROC10TA4 PO; +PROC10TA5 PO; +SENN-80 PO; +SIME80TA16 PO; -SIME80TA5 PO; -SODIUM CHLORIDE 0.9% INJ 10 ML SYR IV PRN; -SODIUM CHLORIDE 0.9% INJ 10 ML SYR IV SCH; +SYNT112T2 PO; -diphenhydrAMINE 50MG CAP PO ONE
[2021-02-21 13:51] LABS: HEMATOCRIT 30.3 % (36.0-47.0); HEMOGLOBIN 9.4 g/dl (12.0-15.5); MEAN CORPUSCULAR HEMOGLOBIN 32.9 pg (27.0-33.0); MEAN CORPUSCULAR VOLUME 105.9 fl (80.0-96.0); RED BLOOD COUNT 2.86 10^6/uL (4.00-5.40)
[2021-02-21 14:06] VITALS: BP 96/55
[2021-02-21 14:15] LABS: PLATELET COUNT, AUTOMATED 70 10^3/uL (150-450)
[2021-02-21 14:17] LABS: EOSINOPHILS 1 % (0-3); LYMPHOCYTES 21 % (16-44); MONOCYTES 9 % (0-5); NEUTROPHILS 68 % (28-66)
[2021-02-21 14:19] LABS: ANISOCYTOSIS 1+; PLATELET ESTIMATE MARKED DECREASE (NORMAL); POIKILOCYTOSIS 1+; POLYCHROMASIA 1+
== END ==
LOC: M IRPRO 13:09
PROVIDERS: ATTEND Specialist
DX: R18.8 Other ascites (principal)

== ENCOUNTER → 2021-02-28 | Outpatient (CLI) | payer MEDICARE, OTHER ==
[~2021-02-28] MED LIST changes: -CEFD300CAP PO; -CEPH500T PO; -LACT20EL PO; -LEVO88TA3 PO; -MED NOTE; -MED REC COMMENT; -OMEP-173 PO; +OMEP-218 PO; +OMEP-221 PO; -OMEP40CA5 PO; -POTA-151 PO; +POTA20TA6 PO; +PROC10TA4 PO; -PROC10TA5 PO; -SENN-80 PO; -SIME80TA16 PO; +SIME80TA5 PO; +SODIUM BICARBONATE 8.4% INJ 50MEQ 50 ML VIAL As Ordered ONE; -SYNT112T2 PO
[2021-02-28 14:20] VITALS: BP 117/64
--- NOTE | 2021-02-28 18:45 | REP ---
INDICATION: ASCITES The patient has a history of ascites. COMPARISON: None. TECHNIQUE: The procedure was performed by Dr. Hercules under the personal supervision of MARYCHUY Nicole, and under the direct supervision of Dr. Cervantes The risks and benefits of the procedure were explained to the patient and an informed consent was obtained both verbally and written. Directly prior to the start of the procedure a formal time-out was completed in the procedure room. The largest pocket of fluid was localized in the left flank using ultrasound guidance. The skin was prepped and draped in a sterile fashion. Eleven ML of buffered lidocaine was used as a local anesthetic. An 8-Czech multi side-hole catheter was inserted using trocar technique. FINDINGS: 5700 mL of yellow ascites was removed and discarded. The patient tolerated the procedure well and there were no immediate complications. After the appropriate amount of monitored convalescence, the patient was discharged from the department. IMPRESSION: Ultrasound-guided paracentesis with removal of 5700 mL of yellow ascites. <Electronically signed by Kya Woods > 02/28/21 1512 <Electronically signed by Justin Cervantes > 02/28/21 1841
== END ==
LOC: M IRPRO 13:06
PROVIDERS: ATTEND Specialist
DX: R18.8 Other ascites (principal)

== ENCOUNTER 2021-03-19 21:43 | Observation (INO) | payer MEDICARE, OTHER ==
[~2021-03-19] VITALS: Ht 165.1 cm; Wt 71.7 kg
[~2021-03-19 21:43] MED LIST changes: -SODIUM BICARBONATE 8.4% INJ 50MEQ 50 ML VIAL As Ordered ONE
[2021-03-19 22:47] LABS: BASO % 0.3 % (0.0-1.0); EOS % 0.2 % (0.0-3.0); HEMATOCRIT 30.2 % (36.0-47.0); HEMOGLOBIN 9.8 g/dl (12.0-15.5); LYMPH # 0.8 10^3/uL (1.5-5.0); LYMPH % 7.8 % (24.0-44.0); MEAN CORPUSCULAR HEMOGLOBIN 34.9 pg (27.0-33.0); MEAN CORPUSCULAR HGB CONC 32.5 g/dl (32.0-36.5); MEAN CORPUSCULAR VOLUME 107.5 fl (80.0-96.0); MONO # 0.8 10^3/uL (0.0-0.8); MONO % 7.5 % (2.0-8.0); NEUTROPHILS # 8.6 10^3/uL (1.5-8.5); NEUTROPHILS % 82.6 % (36.0-66.0); PLATELET COUNT, AUTOMATED 122 10^3/uL (150-450); RED BLOOD COUNT 2.81 10^6/uL (4.00-5.40); WHITE BLOOD COUNT 10.5 10^3/uL (4.0-10.0)
[2021-03-19 22:57] LABS: INR 1.34
[2021-03-19 23:14] LABS: BLOOD UREA NITROGEN 18 MG/DL (7-18); CALCIUM LEVEL 6.4 MG/DL (8.8-10.2); CARBON DIOXIDE LEVEL 19 MEQ/L (21-32); CHLORIDE LEVEL 116 MEQ/L (98-107); CREATININE FOR GFR 0.46 MG/DL (0.55-1.30); GLOMERULAR FILTRATION RATE > 60.0 (>39); GLUCOSE, FASTING 82 MG/DL (70-100); MAGNESIUM LEVEL 1.8 MG/DL (1.8-2.4); SODIUM LEVEL 141 MEQ/L (136-145)
[2021-03-19 23:22] LABS: RSV AMPLIFICATION NEGATIVE (NEGATIVE)
[2021-03-19] MEDS ORDERED: ATIV1TAB10 PO (23:34)
[2021-03-19] MEDS ORDERED: HOME MED LIST COMPLETE! XX SCH (23:35)
[2021-03-20] MEDS ORDERED: ANEXSIA, NORCO 7.5MG/325MG TABLET(HYDROCODONE/APAP) PO PRN (00:05)
[2021-03-20] MEDS ORDERED: SIMETHICONE 80MG CHEW TAB PO PRN (00:05)
[2021-03-20] MEDS ORDERED: LORazepam 0.5 MG TAB PO PRN (00:05)
[2021-03-20] MEDS ORDERED: EMLA CREAM 5GM TUBE (LIDOCAINE/PRILOCAINE) TOP PRN (00:05)
[2021-03-20] MEDS ORDERED: ACETAMINOPHEN TAB 650MG DOSE (2X325MG) PO PRN (00:05)
[2021-03-20] MEDS ORDERED: MOM 30ML SUSPENSION UDC PO PRN (00:05)
[2021-03-20] MEDS ORDERED: MAALOX 30 ML SUSP *UDC PO PRN (00:05)
--- NOTE | 2021-03-20 01:18 | HPEPDOC ---
[facility] Medical History & Physical Date of Admission Mar 20, 2021 Date of Service: Mar 20, 2021 History and Physical CHIEF COMPLAINT: abdominal distension HISTORY OF PRESENT ILLNESS: Mrs. Heart is a pleasant 70-year-old female with a past medical history of pancreatic adenocarcinoma. Patient is being followed by Dr. Mckinnon at [facility] and has been also electronic publications specialist care at [facility] where she underwent a Whipple procedure in April 2020. She is presently receiving chemotherapy with Gemzar and Abraxane. Last seen in clinic on 03/16/21, but was not administered chemotherapy as her platelet count was 88. She receives weekly paracentesis due to recurrent ascites with unknown etiology after her Whipple procedure. Patient was not able to undergo paracentesis at her last appointment as she was having copious diarrhea which has not resolved. Patient has an abdominal distention and discomfort without pain, fever, chills, chest pain, nausea, vomiting or diarrhea. Patient is admitted for paracentesis to rule out SBP. PAST MEDICAL HISTORY: Adenocarcinoma of the pancreatic head DVT PAST SURGICAL HISTORY: Whipple procedure SOCIAL HISTORY: Patient denies smoking Patient denies etoh use Patient denies illicit drug use FAMILY HISTORY: Reviewed with patient. No relevant family history provided ALLERGIES: Please see below. REVIEW OF SYSTEMS: 10 point ROS conducted relevant findings are noted in the HPI. HOME MEDICATIONS: Please see below. PHYSICAL EXAMINATION: VITAL SIGNS: please see below General: NAD, comfortable HEENT: PERRLA, EOMI, sclerae clear Neck: supple, normal ROM, no JVD Respiratory: lungs CTAB, no wheeze, no rales, no crackles CVS: RRR, normal S1, S2, no murmurs Abdo: abdomen is greatly distended, firm but non tender to palpation; no rigidity, no guarding. Extremities: no edema, pulses 2+ MSK: no joint deformities, normal ROM Neuro: no focal neuro deficits, moving all 4 extremities, CN2-12 intact. Strength 5/5 in all 4 extremities. No nystagmus. Psych: calm, cooperative, AAO x 3 LABORATORY DATA: See below. IMAGING: N/A MICROBIOLOGY: Please see below. ASSESSMENT: 70 yo F with a pmxh of adenocarcinoman of the pancreatic s/p chemo and Whipple, currently undergoing active chemotherapy with Dr. Mckinnon at the [facility]. She was last see in oncology on 03/16/21, but did not receive chemo treatment due to thrombocytopenia. She has been having recurrent ascites, of unknown etiology since the Whipple, and has been getting weekly paracentesis. She was unable to attend last appointment due to copious diarrhea, which has resolved. She is admitted to hospitalist service for paracentesis. . PLAN: #Ascites: chart review shows no clear etiology. No cirrhosis seen on recent CT. Onset since whipple per patient. Gets weekly paracentesis. Missed last session on 03/14/21 due to diarrhea. Admit to M/S floor. Request for IR paracentesis placed. Order set for ascitic fluid analysis placed. Patient had leukocytosis on prior oncology visit of 16. Presently WBC 10.5. No fever, no abdominal pain. Low suspicious for SBP, but will analyze fluid. #Thrombocytopenia: improving. f/u with Dr. Mckinnon #DVT in LE: takes eliquis, but holds for 3 days prior to regular paracentesis. Will not resume eliquis on admission in anticipation of paracentesis. #Adenocarcinoma of pancreas: follows with oncology at [facility]. Ongoing chemo for progressive disease. Currently on Gemzar and Abraxane. #Macrocytic Anemia: in setting of chemotherapy. will check fecal occult, B12, folate, iron panel. #Diarrhea: has resolved. If continues, will check GI panel. #DVT ppx: SCDs. Dispo: admitted for obs, expect DC home after paracentesis. Vital Signs Vital Signs Date Time Temp Pulse Resp B/P (MAP) Pulse Ox O2 Delivery O2 Flow Rate FiO2 03/19/21 22:07 80 20 137/64 96 Laboratory Data Labs 24H Laboratory Tests 2 03/19/21 22:28: Immature Granulocyte % (Auto) 1.6, Neutrophils (%) (Auto) 82.6H, Lymphocytes (%) (Auto) 7.8L, Monocytes (%) (Auto) 7.5, Eosinophils (%) (Auto) 0.2, Basophils (%) (Auto) 0.3, Neutrophils # (Auto) 8.6H, Lymphocytes # (Auto) 0.8L, Monocytes # (Auto) 0.8, Eosinophils # (Auto) 0.0, Basophils # (Auto) 0.0, Nucleated Red Blood Cells % (auto) 0.0, Prothrombin Time 17.0H, Prothromb Time International Ratio 1.34, Anion Gap 6L, Glomerular Filtration Rate > 60.0, Calcium Level 6.4L, Magnesium Level 1.8, Coronavirus (COVID-19)(PCR) NEGATIVE, Influenza Type A (RT- PCR) NEGATIVE, Influenza Type B (RT-PCR) NEGATIVE, Respiratory Syncytial Virus (PCR) NEGATIVE CBC/BMP Laboratory Tests 03/19/21 22:28 Home Medications Scheduled Apixaban (Eliquis) 5 Mg Tablet, 5 MG PO BID Escitalopram Oxalate (Lexapro) 10 Mg Tablet, 10 MG PO DAILY Furosemide (Furosemide) 40 Mg Tablet, 40 MG PO DAILY for ASCITES Levothyroxine Sodium (Synthroid) 88 Mcg Tablet, 88 MCG PO DAILY Lidocaine/Prilocaine (Lidocaine-Prilocaine Cream) 2.5%/2.5% Cream..g., 1 DOSE TOP ASDIRECTED Apply dime size to port area. Do not rub in, cover with saran wrap to protect clothing. Lipase/Protease/Amylase (Ignacia Cloud 36,000 Units Capsule) 1 Each Capsule.dr, 2 CAP PO TID WITH MEALS Lorazepam (Ativan) 0.5 Mg Tablet, 0.5 MG PO DAILY Omeprazole (Omeprazole) 40 Mg Capsule.dr, 40 MG PO BID Spironolactone (Spironolactone) 25 Mg Tablet, 25 MG PO DAILY for Ascites Scheduled PRN Diphenoxylate HCl/Atropine (Lomotil 2.5-0.025 mg Tablet) 1 Each Tablet, 1 TAB PO Q6H PRN for DIARRHEA Hydrocodone/Acetaminophen (Hydrocodone-Acetamin 10-325 mg) 1 Each Tablet, 1 TAB PO Q6H PRN for PAIN Lipase/Protease/Amylase (Ignacia Cloud 36,000 Units Capsule) 1 Each Capsule.dr, 1 CAP PO DAILY PRN for WITH SNACKS Prochlorperazine Maleate (Prochlorperazine Maleate) 10 Mg Tablet, 10 MG PO Q6- 8HP PRN for NAUSEA TAKE 10 MG PO Q6-8 HOURS NEEDED FOR VOMITING DESPITE ONDANSETRON Simethicone (Gas Relief) 80 Mg Tab.chew, 80 MG PO BID PRN for GAS PAIN Allergies Coded Allergies: No Known Allergies (Unverified , 08/29/19) A-FIB/CHADSVASC A-FIB History Current/History of A-Fib/PAF?: No SHIKHA LEWIS MD Mar 20, 2021 01:18
[2021-03-20] MEDS: OMEPRAZOLE 20 MG CAP PO SCH ×2 (03:27→09:38)
[2021-03-20] MEDS ORDERED: LEVOTHYROXINE 88MCG TABLET (0.088 MG) PO SCH (06:00)
[2021-03-20 07:56] LABS: FERRITIN 1080 NG/ML (8-252); IRON (FE) 43 UG/DL (50-170); PERCENT SATURATION 23.5 % (13.2-45.0); TOTAL IRON BINDING CAPACITY 183 UG/DL (250-450)
[2021-03-20 08:03] LABS: BASO % 0.2 % (0.0-1.0); EOS % 0.3 % (0.0-3.0); HEMATOCRIT 31.9 % (36.0-47.0); HEMOGLOBIN 10.2 g/dl (12.0-15.5); LYMPH # 0.9 10^3/uL (1.5-5.0); LYMPH % 9.7 % (24.0-44.0); MEAN CORPUSCULAR HEMOGLOBIN 35.1 pg (27.0-33.0); MEAN CORPUSCULAR VOLUME 109.6 fl (80.0-96.0); MONO # 0.7 10^3/uL (0.0-0.8); MONO % 8.1 % (2.0-8.0); NEUTROPHILS # 7.2 10^3/uL (1.5-8.5); NEUTROPHILS % 79.9 % (36.0-66.0); PLATELET COUNT, AUTOMATED 142 10^3/uL (150-450); RED BLOOD COUNT 2.91 10^6/uL (4.00-5.40)
[2021-03-20 08:24] VITALS: BP 123/65
[2021-03-20] MEDS ORDERED: DOCUSATE SODIUM 100MG CAPSULE PO SCH (09:00)
[2021-03-20] MEDS ORDERED: LORazepam 0.5 MG TAB PO SCH (09:00)
[2021-03-20] MEDS ORDERED: ESCITALOPRAM OXALATE 10 MG TAB (LEXAPRO) PO SCH (09:00)
[2021-03-20] MEDS ORDERED: FUROSEMIDE 40 MG TAB PO SCH (09:00)
[2021-03-20] MEDS ORDERED: SPIRONOLACTONE 25 MG TAB PO SCH (09:00)
[2021-03-20 09:31] LABS: ALBUMIN 1.8 GM/DL (3.2-5.2); ALT/SGPT 33 U/L (12-78); BILIRUBIN,TOTAL 0.7 MG/DL (0.2-1.0); BLOOD UREA NITROGEN 18 MG/DL (7-18); CALCIUM LEVEL 7.3 MG/DL (8.8-10.2); CARBON DIOXIDE LEVEL 19 MEQ/L (21-32); CHLORIDE LEVEL 113 MEQ/L (98-107); CREATININE FOR GFR 0.64 MG/DL (0.55-1.30); GLOMERULAR FILTRATION RATE > 60.0 (>39); GLUCOSE, FASTING 85 MG/DL (70-100); POTASSIUM SERUM 3.7 MEQ/L (3.5-5.1); SODIUM LEVEL 142 MEQ/L (136-145); TOTAL PROTEIN 4.4 GM/DL (6.4-8.2)
--- NOTE | 2021-03-20 09:32 | IPNPDOC ---
Text Note Date of Service The patient was seen on 03/20/21. NOTE S: Pt seen and evaluated at bedside. She tells me she is doing well and is lana iting paracentesis today for sx relief. Reports abd pressure and SOB 2/2 increased ascitic fluid. She tells me she normally has paracentesis performed weekly and 7L fluid removed, however, due to prolonged interval between paracentesis she expects to have 13L fluid removed today. Denies fevers/chills, chest pain, abd pain n/v, diarrhea. O: GEN: laying in bed, alert and awake, NAD HEENT: NC/AT, EOMI, nares patent, dry mucous membranes CARDIO: normal heart sounds, RRR, no MRG PULM: CTA b/l, no WRR, no accessory muscles used ABD: decreased BS, soft, nontender, distended EXTREMITIES: no edema, normal ROM IMAGING: CT abd/pelvis (12/21/20) Very large amount of abdominal and pelvic ascites has mildly increased since the prior study. No other significant new finding compared to the prior exam. A/P: 70F PMH pancreatic adenoCA s/p Whipple procedure (04/2020) undergoing chemotherapy w/ Dr. Mckinnon w/ recurrent ascites, pending paracentesis by IR today. #Recurrent ascites, unknown etiology Pt w/ recurrent ascites since whipple procedure (04/2020) Pt receives weekly paracentesis but missed last appt due to diarrhea No cirrhosis on CT abd/pelvis, noted above No leukocytosis Unlikely SBP, pending ascitic fluid analysis #Pancreatic adenoCA s/p Whipple Last seen by [facility] 03/16, but did not receive chemo due to thrombocytopenia On Chemotherapy (Gemzar, Abraxane) Follows w/ Dr. Mckinnon #Thrombocytopenia- improving Plt count 142 Follows w/ Dr. Mckinnon #Macrocytic Anemia on chemotherapy RBC 2.91, Hgb 10.2, Hct 31.9, MCV 109.6 Iron 43, TIBC 183, Ferritin 1080 Pending fecal occult, B12, folate #Hypothyroidism On Levothyroxine #GERD On Omeprazole #HTN On Spironolactone, Lasix #Depression and Anxiety On Escitalopram #DVT Prophylaxis TEDs and Sequentials DISPO: home, pending paracentesis 03/20 Activity as tolerated 2g Na Diet w/ 2L fluid restriction VS,Fishbone, I+O VS, Fishbone, I+O Laboratory Tests 03/19/21 22:28 03/20/21 06:50 Vital Signs Date Time Temp Pulse Resp B/P (MAP) Pulse Ox O2 Delivery O2 Flow Rate FiO2 03/20/21 08:24 97.7 70 18 123/65 (84) 95 Room Air GME ATTESTATION GME ATTESTATION My faculty preceptor for this patient encounter was physically present during the encounter and was fully available. All aspects of the patient interview, examination, medical decision making process, and medical care plan development were reviewed and approved by the faculty preceptor. The faculty preceptor is aware and concurs with the plan as stated in the body of this note and will attest to such by his/her cosignature. ATTENDING NOTE I, Briseida Gomez MD, have independently examined this patient and performed my own physical exam, as well as reviewed the documentation and edited where necessary. I have discussed in detail with the resident / student the findings and plan of treatment as documented by the resident / student and edited their note. I agree with their findings and treatment plan and have edited their documentation. I will continue to follow the patient during this hospital stay. Katalina Leyva DO Mar 20, 2021 09:32 BRISEIDA GOMEZ MD Mar 29, 2021 14:21
[2021-03-20] MEDS: CREON-24 CAPSULE PO SCH ×3 (09:39→18:22)
[2021-03-20 10:38] LABS: VITAMIN B12 LEVEL > 2000 PG/ML (247-911)
[2021-03-20 13:50] VITALS: BP 126/65
[2021-03-20] MEDS ORDERED: SODIUM BICARBONATE 8.4% INJ 50MEQ 50 ML VIAL As Ordered ONE (16:52)
[2021-03-20 17:55] VITALS: BP 137/71
--- NOTE | 2021-03-20 18:04 | DS.PDOC ---
Discharge Summary General Date of Admission Mar 19, 2021 at 21:44 Date of Discharge 03/20/21 Attending Physician: LINO CHANDLER MD Discharge Summary PROCEDURES PERFORMED DURING STAY: Paracentesis ADMITTING DIAGNOSES: 1. Recurrent ascites, unknown etiology DISCHARGE DIAGNOSES: 1. Recurrent ascites, unknown etiology s/p paracentesis COMPLICATIONS/CHIEF COMPLAINT: Adenocarcinoma Of Pancreas. HISTORY OF PRESENT ILLNESS: Frances is 70F PMH macrocytic anemia in setting of chemotherapy, pancreatic adenocarcinoma s/p Whipple procedure at [facility] (04/2020) who has since had recurrent ascites. She receives weekly paracentesis outpatient for her recurrent ascites of unknown etiology following Whipple procedure. She was unable to undergo paracentesis at her last appointment (03/14) due to copious diarrhea which has since resolved. Pt undergoing chemotherapy (Gemzar and Abraxane) w/ Dr. Mckinnon at [facility], but did not receive chemotherapy (03/16) due to thrombocytopenia (plt count 88). Reported abdominal distention and discomfort without pain. Denied fever, chills, chest pain, n/v, diarrhea. HOSPITAL COURSE: Pt admitted to receive paracentesis 03/20. While inpatient, macrocytic anemia w/u w/ iron panel (iron 43, TIBC 183, ferritin 1080), B12 (>2000), folate pending, fecal occult pending. 9500cc removed during paracentesis 03/20 and pt reported sx improvement. Ascitic fluid analyzed for possible SBP, pending. Pt's hospitalization uncomplicated. DISCHARGE MEDICATIONS: Please see below. ALLERGIES: Please see below. PHYSICAL EXAMINATION ON DISCHARGE: VITAL SIGNS: Please see below. GENERAL: laying in bed, alert and awake, NAD HEENT: NC/AT, EOMI, nares patent, dry mucous membranes NECK: supple CARDIOVASCULAR EXAMINATION: normal heart sounds, RRR, no MRG RESPIRATORY EXAMINATION: CTA b/l, no WRR, no accessory muscles used ABDOMINAL EXAMINATION: decreased BS, soft, nontender, nondistended EXTREMITIES: no edema, normal ROM SKIN: no new rashes/abrasions/wounds NEUROLOGICAL EXAMINATION: no FND, strength 5/5 PSYCHIATRIC EXAMINATION: AOx3, normal mood/affect LABORATORY DATA: Please see below. IMAGING: N/A PROGNOSIS: good ACTIVITY: As tolerated DIET: 2g Na diet w/ 2L fluid restriction DISCHARGE PLAN: F/u PCP, 7-10days F/u [facility] (Dr. Mckinnon), as per schedule DISPOSITION: home DISCHARGE INSTRUCTIONS: 1. F/u PCP, 7-10days 2. F/u [facility] (Dr. Mckinnon), as per schedule DISCHARGE CONDITION: Stable TIME SPENT ON DISCHARGE: 20 minutes. Vital Signs/I&Os Vital Signs Date Time Temp Pulse Resp B/P (MAP) Pulse Ox O2 Delivery O2 Flow Rate FiO2 03/20/21 16:30 98.7 66 20 94 Room Air 03/20/21 13:50 126/65 (85) Laboratory Data Labs 24H Laboratory Tests 2 03/19/21 22:28: Immature Granulocyte % (Auto) 1.6, Neutrophils (%) (Auto) 82.6H, Lymphocytes (%) (Auto) 7.8L, Monocytes (%) (Auto) 7.5, Eosinophils (%) (Auto) 0.2, Basophils (%) (Auto) 0.3, Neutrophils # (Auto) 8.6H, Lymphocytes # (Auto) 0.8L, Monocytes # (Auto) 0.8, Eosinophils # (Auto) 0.0, Basophils # (Auto) 0.0, Nucleated Red Blood Cells % (auto) 0.0, Prothrombin Time 17.0H, Prothromb Time International Ratio 1.34, Anion Gap 6L, Glomerular Filtration Rate > 60.0, Calcium Level 6.4L, Magnesium Level 1.8, Coronavirus (COVID-19)(PCR) NEGATIVE, Influenza Type A (RT- PCR) NEGATIVE, Influenza Type B (RT-PCR) NEGATIVE, Respiratory Syncytial Virus (PCR) NEGATIVE 03/20/21 06:50: Immature Granulocyte % (Auto) 1.8, Neutrophils (%) (Auto) 79.9H, Lymphocytes (%) (Auto) 9.7L, Monocytes (%) (Auto) 8.1H, Eosinophils (%) (Auto) 0.3, Basophils (%) (Auto) 0.2, Neutrophils # (Auto) 7.2, Lymphocytes # (Auto) 0.9L, Monocytes # (Auto) 0.7, Eosinophils # (Auto) 0.0, Basophils # (Auto) 0.0, Nucleated Red Blood Cells % (auto) 0.0, Anion Gap 10, Glomerular Filtration Rate > 60.0, Calcium Level 7.3L, Total Bilirubin 0.7, Aspartate Amino Transf (AST/SGOT) 62H, Alanine Aminotransferase (ALT/SGPT) 33, Alkaline Phosphatase 251H, Total Protein 4.4L, Albumin 1.8L, Albumin/Globulin Ratio 0.7L 03/20/21 06:51: Iron Level 43L, Total Iron Binding Capacity 183L, Transferrin % Saturation 23.5, Ferritin 1080H, Vitamin B12 Level > 2000H CBC/BMP Laboratory Tests 03/19/21 22:28 03/20/21 06:50 Discharge Medications Scheduled Apixaban (Eliquis) 5 Mg Tablet, 5 MG PO BID Escitalopram Oxalate (Lexapro) 10 Mg Tablet, 10 MG PO DAILY, (Reported) Furosemide (Furosemide) 40 Mg Tablet, 40 MG PO DAILY for ASCITES Levothyroxine Sodium (Synthroid) 88 Mcg Tablet, 88 MCG PO DAILY, (Reported) Lidocaine/Prilocaine (Lidocaine-Prilocaine Cream) 2.5%/2.5% Cream..g., 1 DOSE TOP ASDIRECTED Apply dime size to port area. Do not rub in, cover with saran wrap to protect clothing. Lipase/Protease/Amylase (Ignacia Cloud 36,000 Units Capsule) 1 Each Capsule.dr, 2 CAP PO TID, (Reported) WITH MEALS Lorazepam (Ativan) 0.5 Mg Tablet, 0.5 MG PO DAILY, (Reported) Omeprazole (Omeprazole) 40 Mg Capsule.dr, 40 MG PO BID Spironolactone (Spironolactone) 25 Mg Tablet, 25 MG PO DAILY for Ascites Scheduled PRN Diphenoxylate HCl/Atropine (Lomotil 2.5-0.025 mg Tablet) 1 Each Tablet, 1 TAB PO Q6H PRN for DIARRHEA Hydrocodone/Acetaminophen (Hydrocodone-Acetamin 10-325 mg) 1 Each Tablet, 1 TAB PO Q6H PRN for PAIN, (Reported) Lipase/Protease/Amylase (Ignacia Cloud 36,000 Units Capsule) 1 Each Capsule.dr, 1 CAP PO DAILY PRN for WITH SNACKS, (Reported) Prochlorperazine Maleate (Prochlorperazine Maleate) 10 Mg Tablet, 10 MG PO Q6- 8HP PRN for NAUSEA TAKE 10 MG PO Q6-8 HOURS NEEDED FOR VOMITING DESPITE ONDANSETRON Simethicone (Gas Relief) 80 Mg Tab.chew, 80 MG PO BID PRN for GAS PAIN, (Reported) Allergies Coded Allergies: No Known Allergies (Unverified , 08/29/19) GME ATTESTATION GME ATTESTATION My faculty preceptor for this patient encounter was physically present during the encounter and was fully available. All aspects of the patient interview, examination, medical decision making process, and medical care plan development were reviewed and approved by the faculty preceptor. The faculty preceptor is aware and concurs with the plan as stated in the body of this note and will attest to such by his/her cosignature. ATTENDING NOTE I, Lino Chandler MD, have independently examined this patient and performed my own physical exam, as well as reviewed the documentation and edited where necessary. I have discussed in detail with the resident / student the findings and plan of treatment as documented by the resident / student and edited their note. I agree with their findings and treatment plan and have edited their documentation. Total time spent on this discharge including coordination of care, review of chart and actual documentation and total patient contact is around 35 minutes Katalina Leyva DO Mar 20, 2021 18:04 LINO CHANDLER MD Mar 29, 2021 14:26
[2021-03-20 18:08] LABS: APPEARANCE, BODY FLUID CLEAR (CLEAR); ASCITES FL COLOR PALE YELLOW (COLORLESS); SOURCE, BODY FLUID ASCITES
[2021-03-20 18:14] LABS: SOURCE, BODY FLUID ALBUMIN ASCITES; SOURCE, BODY FLUID GLUCOSE ASCITES; SOURCE, BODY FLUID TOT PROTEIN ASCITES; TOTAL PROTEIN, BODY FLUID 1.1 G/DL (NOT ESTABLISHED)
--- NOTE | 2021-03-21 17:07 | REP ---
INDICATION: LARGE VOLUME ASCITES, HX OF ADENOCA OF PANCREAS. The patient has a history of ascites COMPARISON: None. TECHNIQUE: The procedure was performed by MARYCHUY Nicole, under the direct supervision of Dr. Rivera The risks and benefits of the procedure were explained to the patient and an informed consent was obtained both verbally and written. Directly prior to the start of the procedure a formal time-out was completed in the procedure room. The largest pocket of fluid was localized in the left flank using ultrasound guidance. The skin was prepped and draped in a sterile fashion. Eleven ML of buffered lidocaine was used as a local anesthetic. An 8-Senegalese multi side-hole catheter was inserted using trocar technique. FINDINGS: 9500 mL of yellow ascites was removed and discarded. The patient tolerated the procedure well and there were no immediate complications. After the appropriate amount of monitored convalescence, the patient was discharged from the department. IMPRESSION: Ultrasound-guided paracentesis with removal of 9500 mL of yellow ascites. <Electronically signed by Kya Woods > 03/21/21 1248 <Electronically signed by Melvin Rivera > 03/21/21 [id number]
== END 2021-03-20 19:55 | disposition home or self-care (01) ==
LOC: M ED 21:43 → M ED INP 21:44 → ENRESERV 03-20 07:06 → M MS5PR 03-20 08:20
PROVIDERS: ADMIT Family Medicine; ATTEND Family Medicine
DX: R18.8 Other ascites (principal); C25.9 Malignant neoplasm of pancreas, unspecified; Z79.899 Other long term (current) drug therapy; D53.9 Nutritional anemia, unspecified; D69.6 Thrombocytopenia, unspecified; E03.9 Hypothyroidism, unspecified; Z79.01 Long term (current) use of anticoagulants; I10 Essential (primary) hypertension; Z87.891 Personal history of nicotine dependence
CPT/HCPCS: 36415; 36591; 49083; 80048; 80053; 82042; 82607; 82728; 82945; 83550; 83735; 84157; 84315; 85025; 85049; 85055; 85610; 87070; 87077; 87102; 87116; 87205; 87206; 87631; 89051; 99285; G0378; G0463; J1642

== ENCOUNTER → 2021-03-30 | Outpatient (CLI) | payer MEDICARE, OTHER ==
[2021-03-30 13:25] VITALS: BP 110/53
--- NOTE | 2021-04-05 15:18 | REP ---
INDICATION: ASCITES. COMPARISON: None. TECHNIQUE: The procedure was performed under the direct supervision of Dr. Cervantes. The risks and benefits of the procedure were explained to the patient and informed consent was obtained. The largest pocket of fluid was localized in the right lower quadrant using ultrasound guidance. The skin was prepped and draped in a sterile fashion. 5 mL of 1% lidocaine was used as a local anesthetic. An 8-Tajik multi side-hole catheter was inserted using trocar technique.6400 mL of yellow fluid was withdrawn and discarded. Estimated blood loss: Less than 1 mL The patient tolerated the procedure well and there were no immediate complications. After the appropriate amount of monitored convalescence, the patient was discharged from the department. FINDINGS: None IMPRESSION: Ultrasound-guided paracentesis [id number] mL of yellow fluid. <Electronically signed by Cesar Jones > 03/30/21 [id number] <Electronically signed by Justin Cervantes > 03/30/21 [id number]
== END ==
LOC: M IRPRO 12:16
PROVIDERS: ATTEND Specialist
DX: R18.8 Other ascites (principal)

== ENCOUNTER → 2021-04-06 | Outpatient (CLI) | payer MEDICARE, OTHER ==
[~2021-04-06] MED LIST changes: +SODIUM BICARBONATE 8.4% INJ 50MEQ 50 ML VIAL As Ordered ONE
[2021-04-06 15:34] VITALS: BP 112/55
--- NOTE | 2021-04-06 17:06 | REP ---
INDICATION: ASCITES The patient has a history of ascites COMPARISON: None. TECHNIQUE: The procedure was performed by MARYCHUY Nicole, under the direct supervision of Dr. Rivera The risks and benefits of the procedure were explained to the patient and an informed consent was obtained both verbally and written. Directly prior to the start of the procedure a formal time-out was completed in the procedure room. The largest pocket of fluid was localized in the left flank using ultrasound guidance. The skin was prepped and draped in a sterile fashion. Eleven ML of buffered lidocaine was used as a local anesthetic. An 8-Chadian multi side-hole catheter was inserted using trocar technique. FINDINGS: 5750 mL of yellow ascites was removed and discarded. The patient tolerated the procedure well and there were no immediate complications. After the appropriate amount of monitored convalescence, the patient was discharged from the department. IMPRESSION: Ultrasound-guided paracentesis with removal of 5750 mL of yellow ascites. <Electronically signed by Kya Woods > 04/06/21 1635 <Electronically signed by Melvin Rivera > 04/06/21 1704
== END ==
LOC: M IRPRO 14:25
PROVIDERS: ATTEND Specialist
DX: R18.8 Other ascites (principal)

== ENCOUNTER → 2021-04-19 | Outpatient (CLI) | payer MEDICARE, OTHER ==
[2021-04-19 16:14] VITALS: BP 131/66
--- NOTE | 2021-04-19 16:43 | REP ---
INDICATION: ASCITES The patient has a history of ascites COMPARISON: None. TECHNIQUE: The procedure was performed by MARYCHUY Nicole, under the direct supervision of Dr. Cervantes The risks and benefits of the procedure were explained to the patient and an informed consent was obtained both verbally and written. Directly prior to the start of the procedure a formal time-out was completed in the procedure room. The largest pocket of fluid was localized in the right flank using ultrasound guidance. The skin was prepped and draped in a sterile fashion. Eleven ML of buffered lidocaine was used as a local anesthetic. An 8-Persian multi side-hole catheter was inserted using trocar technique. FINDINGS: 7150 mL of yellow ascites was removed and discarded. The patient tolerated the procedure well and there were no immediate complications. After the appropriate amount of monitored convalescence, the patient was discharged from the department. IMPRESSION: Ultrasound-guided paracentesis with removal of 7150 mL of yellow ascites. <Electronically signed by Kya Woods > 04/19/21 1638 <Electronically signed by Justin Cervantes > 04/19/21 1638
== END ==
LOC: M IRPRO 14:54
PROVIDERS: ATTEND Specialist
DX: R18.8 Other ascites (principal)

== ENCOUNTER → 2021-04-25 | Outpatient (CLI) | payer MEDICARE, OTHER ==
[~2021-04-25] MED LIST changes: -SODIUM BICARBONATE 8.4% INJ 50MEQ 50 ML VIAL As Ordered ONE
[2021-04-25 13:40] VITALS: BP 120/70
--- NOTE | 2021-04-25 16:44 | REP ---
INDICATION: ASCITES. COMPARISON: None. TECHNIQUE: The procedure was performed under the direct supervision of Dr. Cervantes. The risks and benefits of the procedure were explained to the patient and informed consent was obtained. The largest pocket of fluid was localized in the left flank using ultrasound guidance. The skin was prepped and draped in a sterile fashion. 9 mL of 1% lidocaine was used as a local anesthetic. Using ultrasound guidance, an 8-[place] Islander multi side-hole catheter was inserted using trocar technique.2850 mL of yellow fluid was withdrawn and discarded. Estimated blood loss: None The patient tolerated the procedure well and there were no immediate complications. After the appropriate amount of monitored convalescence, the patient was discharged from the department. FINDINGS: None IMPRESSION: Ultrasound-guided paracentesis [id number] mL of yellow fluid. <Electronically signed by Cesar Jones > 04/25/21 [id number] <Electronically signed by Justin Cervantes > 04/25/21 [id number]
== END ==
LOC: M IRPRO 12:51
PROVIDERS: ATTEND Specialist
DX: R18.8 Other ascites (principal)

== ENCOUNTER → 2021-05-02 | Outpatient (CLI) | payer MEDICARE, OTHER ==
[~2021-05-02] MED LIST changes: +SODIUM BICARBONATE 8.4% INJ 50MEQ 50 ML VIAL As Ordered ONE
[2021-05-02 14:35] VITALS: BP 113/67
--- NOTE | 2021-05-02 17:02 | REP ---
INDICATION: ASCITES The patient has a history of ascites COMPARISON: None. TECHNIQUE: The procedure was performed by MARYCHUY Nicole, under the direct supervision of Dr. Rivera The risks and benefits of the procedure were explained to the patient and an informed consent was obtained both verbally and written. Directly prior to the start of the procedure a formal time-out was completed in the procedure room. The largest pocket of fluid was localized in the left flank using ultrasound guidance. The skin was prepped and draped in a sterile fashion. Eleven ML of buffered lidocaine was used as a local anesthetic. An 8-Mexican multi side-hole catheter was inserted using trocar technique. FINDINGS: 3400 mL of yellow ascites was removed and discarded. The patient tolerated the procedure well and there were no immediate complications. After the appropriate amount of monitored convalescence, the patient was discharged from the department. IMPRESSION: Ultrasound-guided paracentesis with removal of 3400 mL of yellow ascites. <Electronically signed by Kya Woods > 05/02/21 1605 <Electronically signed by Melvin Rivera > 05/02/21 [id number]
== END ==
LOC: M IRPRO 12:26
PROVIDERS: ATTEND Specialist
DX: R18.8 Other ascites (principal)

== ENCOUNTER → 2021-05-23 | Outpatient (CLI) | payer MEDICARE, OTHER ==
[2021-05-23 13:40] VITALS: BP 131/66
--- NOTE | 2021-05-23 15:50 | REP ---
INDICATION: ASCITES The patient has a history of ascites COMPARISON: None. TECHNIQUE: The procedure was performed by MARYCHUY Nicole, under the direct supervision of Dr. Cervantes The risks and benefits of the procedure were explained to the patient and an informed consent was obtained both verbally and written. Directly prior to the start of the procedure a formal time-out was completed in the procedure room. The largest pocket of fluid was localized in the left flank using ultrasound guidance. The skin was prepped and draped in a sterile fashion. Eleven ML of buffered lidocaine was used as a local anesthetic. An 8-Turkmen multi side-hole catheter was inserted using trocar technique. FINDINGS: 9800 mL of yellow ascites was removed and discarded. The patient tolerated the procedure well and there were no immediate complications. After the appropriate amount of monitored convalescence, the patient was discharged from the department. IMPRESSION: Ultrasound-guided paracentesis with removal of 9800 mL of yellow ascites. <Electronically signed by Kya Woods > 05/23/21 1416 <Electronically signed by Justin Cervantes > 05/23/21 1327
== END ==
LOC: M IRPRO 12:15
PROVIDERS: ATTEND Specialist
DX: R18.8 Other ascites (principal)

== ENCOUNTER → 2021-05-30 | Outpatient (CLI) | payer MEDICARE, OTHER ==
[~2021-05-30] MED LIST changes: -SODIUM BICARBONATE 8.4% INJ 50MEQ 50 ML VIAL As Ordered ONE
[2021-05-30 12:09] VITALS: BP 120/68
--- NOTE | 2021-05-30 17:20 | REP ---
INDICATION: ASCITES The patient has a history of ascites COMPARISON: None. TECHNIQUE: The procedure was performed by MARYCHUY Jackman, under the direct supervision of Dr. Cervantes The risks and benefits of the procedure were explained to the patient and an informed consent was obtained both verbally and written. Directly prior to the start of the procedure a formal time-out was completed in the procedure room. The largest pocket of fluid was localized in the right lower quadrant using ultrasound guidance. The skin was prepped and draped in a sterile fashion. Ten ML of 1% lidocaine 10 mg/ml was used as a local anesthetic. An 8-Palauan multi side-hole catheter was inserted using trocar technique. FINDINGS: Technically successful paracentesis yielding 4950 mL of yellow fluid. The patient tolerated the procedure well and there were no immediate complications. After the appropriate amount of monitored convalescence, the patient was discharged from the department. IMPRESSION: Technically successful paracentesis yielding 4950 mL of yellow fluid. <Electronically signed by Leighann Ewing > 05/30/21 1320 <Electronically signed by Justin Cervantes > 05/30/21 [id number]
== END ==
LOC: M IRPRO 11:02
PROVIDERS: ATTEND Specialist
DX: R18.8 Other ascites (principal)

== ENCOUNTER 2021-06-09 21:09 | Emergency (ER) | payer MEDICARE, OTHER ==
[~2021-06-09] VITALS: Ht 165.1 cm; Wt 85.0 kg
--- OUTSIDE RECORDS SUMMARY | 2021-06-09 21:14 | CCD ---
Author Author [facility] Organization [facility] Address Unknown Phone Unavailable Care Team Providers Care Program Mgr Name Role Phone Fran Martins Taiwo PA Unavailable Unavailable O'vi, A Taiwo [...] Unavailable O'vi, A Taiwo PA Unavailable Unavailable Re-disclosure Warning The records that [...] is protected by Article 27-F of the [facility] Public Health law. If you continue you may have access to information: Regarding HIV / AIDS; Provided by facilities licensed or operated by the [facility] Office of Mental Health; or Provided by the [facility] Office for People With Developmental Disabilities. If such information is present, then the following [facility] mandated warning applies: This information has [...] Data Source(s ) NKA NKA NKA active NETSMART ([facility]) Family History Family Member Name Family Member Gender Family Member Status Date o f Status Description Data Source(s) Unknown Unknown Problem [facility]ENT ([facility]) Unknown Unknown Problem [facility] ([facility]) Unknown Unknown Problem MEDENT ([facility]) Unknown Unknown Problem MED[facility] ([facility]) Encounters Encounter Providers Location Date Indications Data Source(s ) Outpatient Attender: Taiwo ALICEA [facility] 07/11/2020 02:00:00 PM EST MEDENT ([facility]) 05/28/2020 01:00:00 AM EDT - 020 10:07:09 AM EDT NETSMART ([facility]) Medications Medication Brand Name Start Date Product Form Dose Route Admi nistrative Instructions Pharmacy Instructions Status Indications Reaction Description Data Source(s) 0.5 mg 05/31/2021 12:00:00 AM EDT tablet 60 TAKE ONE TABLET BY MOUTH TWICE A DAY NEEDED FOR ANXIETY * MAXIMUM DAILY DOSE = 2 TAKE ONE TABLET BY MOUTH TWICE A DAY NEEDED FOR ANXIETY * MAXIMUM DAILY DOSE = 2 SOLD: 05/31/2021 [facility] Acetaminophen 325 MG / Hydrocodone Bitartrate 10 MG Or al Tablet 10-325 mg HYDROCODONE/ACETAMINOPHEN 05/17/2021 12:00:00 AM EDT tablet 120 TAKE ONE TABLET BY MOUTH EVERY 6 HOURS NEEDED FOR PAIN, MAXIMUM DAILY DOSE = 4 TABLETS TAKE ONE TABLET BY MOUTH EVERY 6 HOURS A S NEEDED FOR PAIN, MAXIMUM DAILY DOSE = 4 TABLETS SOLD: 05/17/2021 [facility] Acetaminophen 325 MG / Hydrocodone Bitartrate 10 MG Or al Tablet 10-325 mg HYDROCODONE/ACETAMINOPHEN 04/18/2021 12:00:00 AM EDT tablet 120 TAKE 1 TABLET BY MOUTH EVERY 6 HOURS NEEDED FOR PAIN MAXIMUM DAILY DOSE = 4 TABLETS TAKE 1 TABLET BY MOUTH EVERY 6 HOURS NEEDED FOR PAIN MAXIMUM DAILY DOSE = 4 TABLETS SOLD: 04/18/2021 [facility] 0.5 mg 04/14/2021 12:00:00 AM EDT tablet 60 TAKE ONE TABLET BY MOUTH TWICE A DAY NEEDED FOR ANXIETY MAXIMUM DAILY DOSE = 2 TAKE ONE TABLET BY MOUTH TWICE A DAY NEEDED FOR ANXIETY MAXIMUM DAILY DOSE = 2 SOLD: 04/18/2021 [facility] Acetaminophen 325 MG / Hydrocodone Bitartrate 5 MG Ora l Tablet 5-325 mg HYDROCODONE/ACETAMINOPHEN 03/31/2021 12:00:00 AM EDT tablet 120 TAKE ONE TABLET BY MOUTH EVERY 6 HOURSA NEEDED FOR PAIN, MAXIMUM DAILY DOSE = 4 TABLETS TAKE ONE TABLET BY MOUTH EVERY 6 HOURSA NEEDED FOR PAIN, MAXIMUM DAILY DOSE = 4 TABLETS SOLD: 03/31/2021 [facility] Acetaminophen 325 MG / Hydrocodone Bitartrate 10 MG Or al Tablet 10-325 mg HYDROCODONE/ACETAMINOPHEN 03/02/2021 12:00:00 AM EDT tablet 120 TAKE ONE TABLET BY MOUTH EVERY 6 HOURS NEEDED FOR PAIN, MAXIMUM DAILY DOSE = 4 TABLETS TAKE ONE TABLET BY MOUTH EVERY 6 HOURS A S NEEDED FOR PAIN, MAXIMUM DAILY DOSE = 4 TABLETS SOLD: 03/03/2021 [facility] 0.5 mg 02/25/2021 12:00:00 AM EDT tablet 60 TAKE ONE TABLET BY MOUTH TWICE A DAY NEEDED FOR ANXIETY MAXIMUM DAILY DOSE = 2 TABLETS TAKE ONE TABLET BY MOUTH TWICE A DAY NEEDED FOR ANXIETY MAXIMUM DAILY DOSE = 2 TABLETS SOLD: 03/03/2021 [facility] Acetaminophen 325 MG / Hydrocodone Bitartrate 10 MG Or al Tablet 10-325 mg HYDROCODONE/ACETAMINOPHEN 02/01/2021 12:00:00 AM EDT tablet 120 TAKE ONE TABLET BY MOUTH EVERY 6 HOURS NEEDED FOR PAIN * MAXIMUM DAILY DOSE = 4 TAKE ONE TABLET BY MOUTH EVERY 6 HOURS NEEDED FOR PAIN * MAXIMUM DAILY DOSE = 4 SOLD: 02/01/2021 [facility] 25 mg 12/30/2020 12:00:00 AM EDT tablet 30 TAKE ONE TABLET BY MOUTH EVERY DAY FOR ASCITES TAKE ONE TABLET BY MOUTH EVERY DAY FOR ASCITES SOLD: 021 [facility] 40 mg 12/30/2020 12:00:00 AM EDT tablet 30 TAKE ONE TABLET BY MOUTH EVERY DAY FOR ASCITES TAKE ONE TABLET BY MOUTH EVERY DAY FOR ASCITES SOLD: 021 [facility] Acetaminophen 325 MG / Hydrocodone Bitartrate 10 MG Or al Tablet 10-325 mg HYDROCODONE/ACETAMINOPHEN 12/28/2020 12:00:00 AM EDT tablet 120 TAKE 1 TABLET BY MOUTH EVERY 6 HOURS NEEDED FOR PAIN MAXIMUM DAILY DOSE = 4 TABLETS TAKE 1 TABLET BY MOUTH EVERY 6 HOURS NEEDED FOR PAIN MAXIMUM DAILY DOSE = 4 TABLETS SOLD: 12/28/2020 [facility] 40 mg 12/27/2020 12:00:00 AM EDT capsule,delayed release (DR/EC) 180 TAKE ONE CAPSULE BY MOUTH TWICE A DAY TAKE ONE CAPSULE BY MOUTH TWICE A DAY SOLD: 12/28/2020 [facility] 0.5 mg 12/05/2020 12:00:00 AM EDT tablet 60 TAKE ONE TABLET BY MOUTH TWICE A DAY NEEDED FOR ANXIETY MAXIMUM DAILY DOSE = 2 TAKE ONE TABLET BY MOUTH TWICE A DAY NEEDED FOR ANXIETY MAXIMUM DAILY DOSE = 2 SOLD: 12/28/2020 [facility] Acetaminophen 325 MG / Hydrocodone Bitartrate 10 MG Or al Tablet 10-325 mg HYDROCODONE/ACETAMINOPHEN 11/28/2020 12:00:00 AM EDT tablet 120 TAKE ONE TABLET BY MOUTH EVERY 6 HOURS NEEDED FOR PAIN MAXIMUM DAILY DOSE = 4 TAKE ONE TABLET BY MOUTH EVERY 6 HOURS NEEDED FOR PAIN MAXIMUM DAILY DOSE = 4 SOLD: 11/29/2020 [facility] 0.5 mg 10/31/2020 12:00:00 AM EDT tablet 60 TAKE ONE TABLET BY MOUTH TWICE A DAY NEEDED FOR NAUSEA MAXIMUM DAILY DOSE = 2 TAKE ONE TABLET BY MOUTH TWICE A DAY NEEDED FOR NAUSEA MAXIMUM DAILY DOSE = 2 SOLD: 11/02/2020 [facility] 36,000-114,000- 180,000 unit 10/25/2020 12:00:00 AM EDT capsule,delayed release(DR/EC) 180 TAKE TWO CAPSULES BY MOUTH THREE TIMES A DAY WITH MEALS AND ONE CAPSULE WITH SNACKS WITH FIRST BITE OF FOOD TAKE TWO CAPSULES BY MOUTH THREE TIMES A DAY WITH MEALS AND ONE CAPSULE WITH SNACKS WITH FIRST BITE OF FOOD SOLD: 10/29/2020 [facility] 10-325 mg 10/24/2020 12:00:00 AM EDT tablet 120 TAKE ONE TABLET BY MOUTH EVERY 6 HOURS NEEDED FOR PAIN MAXIMUM DAILY DOSE = 4 TAKE ONE TABLET BY MOUTH EVERY 6 HOURS NEEDED FOR PAIN MAXIMUM DAILY DOSE = 4 SOLD: 10/24/2020 [facility] 30 mg 10/24/2020 12:00:00 AM EDT tablet 90 TAKE ONE TABLET BY MOUTH EVERY DAY TAKE ONE TABLET BY MOUTH EVERY DAY SOLD: 10/24/2020 [facility] 5 mg 10/24/2020 12:00:00 AM EDT tablet 180 TAKE ONE TABLET BY MOUTH TWICE A DAY TAKE ONE TABLET BY MOUTH TWICE A DAY SOLD: 10/24/2020 [facility] Lisinopril 20 MG Oral Tablet Lisinopril 10/24/2020 12:00:00 AM EDT ORAL completed MEDENT ([facility]) Lisinopril 30 MG Oral Tablet Lisinopril 10/24/2020 12:00:00 AM EDT ORAL active MEDENT ([facility]) 25 mg 10/22/2020 12:00:00 AM EST tablet 30 TAKE ONE TABLET BY MOUTH EVERY DAY FOR ASCITES TAKE ONE TABLET BY MOUTH EVERY DAY FOR ASCITES SOLD: [facility] 40 mg 10/22/2020 12:00:00 AM EST tablet 30 TAKE ONE TABLET BY MOUTH EVERY DAY FOR ASCITES TAKE ONE TABLET BY MOUTH EVERY DAY FOR ASCITES SOLD: [facility] 5 mg 09/28/2020 12:00:00 AM EST tablet 60 TAKE ONE TABLET BY MOUTH TWICE A DAY TAKE ONE TABLET BY MOUTH TWICE A DAY SOLD: 09/29/2020 [facility] 750 mg 09/15/2020 12:00:00 AM EST tablet 5 TAKE ONE TABLET BY MOUTH EVERY DAY TAKE ONE TABLET BY MOUTH EVERY DAY SOLD: 09/15/2020 [facility] 20 mEq 09/15/2020 12:00:00 AM EST tablet,ER particles/cry stals 7 TAKE ONE TABLET BY MOUTH EVERY DAY TAKE ONE TABLET BY MOUTH EVERY DAY SOLD: 09/15/2020 [facility] 5 mg 09/14/2020 12:00:00 AM EST tablet 28 TAKE 2 TABLETS TWO TIMES A DAY TAKE 2 TABLETS TWO TIMES A DAY SOLD: 09/15/2020 [facility] 0.5 mg 09/10/2020 12:00:00 AM EST tablet 60 TAKE ONE TABLET BY MOUTH TWICE A DAY NEEDED FOR NAUSEA MAXIMUM DAILY DOSE = 2 TAKE ONE TABLET BY MOUTH TWICE A DAY NEEDED FOR NAUSEA MAXIMUM DAILY DOSE = 2 SOLD: 09/10/2020 [facility] 10-325 mg 09/10/2020 12:00:00 AM EST tablet 120 TAKE ONE TABLET BY MOUTH EVERY 6 HOURS NEEDED FOR PAIN MAXIMUM DAILY DOSE = 4 TAKE ONE TABLET BY MOUTH EVERY 6 HOURS NEEDED FOR PAIN MAXIMUM DAILY DOSE = 4 SOLD: 09/10/2020 [facility] 10-325 mg 08/11/2020 12:00:00 AM EST tablet 120 TAKE ONE TABLET BY MOUTH EVERY 6 HOURS NEEDED FOR PAIN, MAXIMUM DAILY DOSE = 4 TABLETS TAKE ONE TABLET BY MOUTH EVERY 6 HOURS NEEDED FOR PAIN, MAXIMUM DAILY DOSE = 4 TABLETS SOLD: 08/12/2020 [facility] 0.5 mg 08/11/2020 12:00:00 AM EST tablet 60 TAKE ONE TABLET BY MOUTH TWICE A DAY NEEDED FOR NAUSEA, MAXIMUM DAILY DOSE = 2 TABLETS TAKE ONE TABLET BY MOUTH TWICE A DAY NEEDED FOR NAUSEA, MAXIMUM DAILY DOSE = 2 TABLETS SOLD: 08/12/2020 [facility] 40 mg 08/10/2020 12:00:00 AM EST capsule,delayed release (DR/EC) 180 TAKE ONE CAPSULE BY MOUTH TWICE A DAY TAKE ONE CAPSULE BY MOUTH TWICE A DAY SOLD: 08/12/2020 [facility] 0.5 mg 07/12/2020 12:00:00 AM EST tablet 60 TAKE ONE TABLET BY MOUTH TWICE A DAY NEEDED FOR NAUSEA MAXIMUM DAILY DOSE = 2 TABLETS TAKE ONE TABLET BY MOUTH TWICE A DAY NEEDED FOR NAUSEA MAXIMUM DAILY DOSE = 2 TABLETS SOLD: 07/13/2020 [facility] 88 mcg 07/12/2020 12:00:00 AM EST tablet 90 TAKE ONE TABLET BY MOUTH EVERY DAY IN THE MORNING TAKE ONE TABLET BY MOUTH EVERY DAY IN THE MORNING SOLD : 07/13/2020 [facility] 10-325 mg 07/11/2020 12:00:00 AM EST tablet 120 TAKE 1 TABLET BY MOUTH EVERY 6 HOURS NEEDED FOR PAIN MAXIMUM DAILY DOSE = 4 TABLETS TAKE 1 TABLET BY MOUTH EVERY 6 HOURS NEEDED FOR PAIN MAXIMUM DAILY DOSE = 4 TABLETS SOLD: 07/13/2020 [facility] Levothyroxine Sodium 0.088 MG Oral Tablet Levothyroxine Sodi um 07/11/2020 12:00:00 AM EST ORAL active M EDENT ([facility]) Promethazine Hydrochloride 12.5 MG Oral Tablet Promethazine HCL 07/11/2020 12:00:00 AM EST ORAL completed MEDENT ([facility]) 0.5 mg 07/01/2020 12:00:00 AM EST tablet 10 TAKE ONE TABLET BY MOUTH EVERY 6 HOURS NEEDED FOR ANXIETY, MAXIMUM DAILY DOSE = 4 TABLETS TAKE ONE TABLET BY MOUTH EVERY 6 HOURS NEEDED FOR ANXIETY, MAXIMUM DAILY DOSE = 4 TABLETS SOLD: 07/08/2020 [facility] 0.5 mg 06/07/2020 12:00:00 AM EDT tablet 20 TAKE ONE TABLET BY MOUTH EVERY 6 HOURS NEEDED FOR ANXIETY, MAXIMUM DAILY DOSE = 4 TABLETS TAKE ONE TABLET BY MOUTH EVERY 6 HOURS NEEDED FOR ANXIETY, MAXIMUM DAILY DOSE = 4 TABLETS SOLD: 06/07/2020 [facility] Senna 8.6 MG Senna 06/03/2020 01:00:00 AM EDT comp leted NETSMART ([facility]) Lovenox 40 MG/0.4ML Lovenox 05/30/2020 01:00:00 AM EDT completed NETSMART ([facility] ) Sucralfate 1 GM Sucralfate 05/28/2020 01:00:00 AM EDT completed NETSMART ([facility]) Lidocaine-Prilocaine 2.5-2.5 % Lidocaine-Prilocaine 05/28/2020 0 1:00:00 AM EDT completed NETSMA RT ([facility]) Prochlorperazine Maleate 10 MG Prochlorperazine Maleate 05/12 01:00:00 AM EDT completed NETSMAR T ([facility]) Senna 8.6 MG Senna 05/28/2020 01:00:00 AM EDT 2.0 {tablet} completed NETSMART ([facility]) Simethicone 180 MG Simethicone 05/28/2020 01:00:00 AM EDT completed NETSMART ([facility]) Spironolactone 25 MG Spironolactone 05/28/2020 01:00:00 AM EDT completed NETSMART ([facility]) Loperamide HCl 2 MG Loperamide HCl 05/28/2020 01:00:00 AM EDT completed NETSMART ([facility]) Omeprazole 40 MG Omeprazole 05/28/2020 01:00:00 AM EDT completed NETSMART ([facility] ) Ondansetron HCl 4 MG Ondansetron HCl 05/28/2020 01:00:00 AM EDT completed NETSMART ([facility]) Docusate Sodium 100 MG Docusate Sodium 05/28/2020 01:00:00 AM EDT completed NETSMART ([facility]) Furosemide 20 MG Furosemide 05/28/2020 01:00:00 AM EDT completed NETSMART ([facility] ) Gabapentin 100 MG Gabapentin 05/28/2020 01:00:00 AM EDT completed NETSMART ([facility] ) Levothyroxine Sodium 75 MCG Levothyroxine Sodium 05/28/2020 01:00:00 AM EDT completed NETSMART ( [facility]) Pancrelipase (Olq-Gezs-Vxfg) 55535 UNIT Pancrelipase (Lip-Pr ot-Amyl) 05/28/2020 01:00:00 AM EDT completed NETSMART ([facility]) Acetaminophen 500 MG Acetaminophen 05/28/2020 01:00:00 AM EDT 2.0 {tablet} completed NETSMART ([facility]) Aspirin 325 MG Aspirin 05/28/2020 01:00:00 AM EDT completed NETSMART ([facility]) Diclofenac Sodium 1 % Diclofenac Sodium 05/28/2020 01:00:00 AM EDT completed NETSMART ([facility]) oxyCODONE HCl 5 MG oxyCODONE HCl 05/28/2020 01:00:00 AM EDT completed NETSMART ([facility]) MiraLax 17 GM MiraLax 05/28/2020 01:00:00 AM EDT c ompleted NETSMART ([facility]) 10-325 mg 05/03/2020 12:00:00 AM EDT tablet [...] DOSE = 4 SOLD: 04/15/2020 [facility] 40 mg 12/29/2019 12:00:00 AM EDT capsule,delayed release (DR/EC) 60 TAKE ONE CAPSULE BY MOUTH TWICE A DAY TAKE ONE CAPSULE BY MOUTH TWICE A DAY SOLD: 06/07/2020 [facility] 36,000-114,000- 180,000 unit 09/18/2019 12:00:00 AM EST capsule,delayed release(DR/EC) 400 TAKE 2 CAPSULES 3 TI MES A DAY WITH MEALS AND 1 WITH SNACKS - WITH FIRST BITE OF FOOD TAKE 2 CAPSULES 3 TIMES A DAY WITH MEALS AND 1 WITH SNACKS - WITH FIRST BITE OF FOOD SOLD: 06/07/2020 [facility] 75 mcg 08/18/2019 12:00:00 AM EST tablet 30 TAKE ONE TABLET BY MOUTH EVERY MORNING TAKE ONE TABLET BY MOUTH EVERY MORNING SOLD: 06/07/2020 [facility] Insurance Providers Payer name Policy type / Coverage type Policy ID Covered democrat ID Covered democrat's relationship to akins Policy Akins Plan Information [employer] [id number] SP [id number] MEDICARE A [id number] Self [id number] UMR U [id number] Self [id number] MEDICARE C [id number] S [id number] [facility] [id number] S [id number] UMR [facility] [id number] SP [id number] [facility]/[employer] Medigap Part B [id number] Self [id number] Medicare Natl Gov't Servi Medicare Primary [id number] Self [id number] [place] Primary [id number] Self [id number] [employer] Medigap Part B [id number] Self [id number] Umr Medigap Part B [id number] Self [id number] Medicare [place] Medicare Primary [id number] Self [id number] [employer] Medigap Part B [id number] 80.0 Self [id number] Umr/Uhc/[employer] Medigap Part B [id number] Self [id number] Medicare Natl Gov't Servi Medicare Primary [id number] Self [id number] Medicare [place] Medicare Primary [id number] Self [id number] [employer] Medigap Part B [id number]. 0 Self [id number] Umr Medigap Part B [id number] 1.0 Self [id number] Medicare [place] Medicare Primary [id number] Self [id number] MEDICARE [id number] SP [id number] A Umr Medigap Part B [id number] [id number] 1.0 Self [id number] [employer] Medigap Part B [id number] 2..[id number]. 0 Self [id number] Medicare [place] Medicare Primary [id number] Self [id number] Umr Medigap Part B [id number] 1.0 Self [id number] [employer] Medigap Part B [id number] [id number]. 0 Self [id number] Medicare [place] Medicare Primary [id number] Self [id number] [employer] Medigap Part B [id number] 2..[id number]. 0 Self [id number] Medicare [place] Medicare Primary [id number] Self [id number] [employer] Medigap Part B [id number] [id number]. 0 Self [id number] Medicare [place] Medicare Primary [id number] Self [id number] [employer] PPO O [id number] S [id number] MEDICARE C [id number] S [id number] A [employer] Medigap Part B [id number] 80.0 Self [id number] Medicare Natl Gov't Serv Medicare Primary [id number] Self [id number] [employer] Medigap Part B [id number] [id number]. 0 Self [id number] Medicare [place] Medicare Primary [id number] Self [id number] [facility] [id number]. 0 Self [id number] Medicare [place] Medicare Primary [id number] Self [id number] [employer] Medigap Part B [id number] 80.0 Self [id number] Medicare Natl Gov't Servi Medicare Primary [id number] Self [id number] [facility] [id number] SP [id number] [facility] Med[facility] Part B [id number] Self Medicare [place] Medicare Primary [id number] Self [employer] Medigap Part B [id number] Self Medicare Natl Gov't Servi Medicare Primary [id number] Self UMR [facility] [id number] SP [id number] SELF PAY UNAVAILABLE SP UNAVAILA BLE MEDICARE [id number] SP [id number] UMR O [id number] S [id number] Problems, Conditions, and Diagnoses Code Display Name Description Problem Type Effective Dates Data Source(s) K21.9 Gastroesophageal reflux disease Gastroesophageal reflu x disease Problem 07/11/2020 12:00:00 AM EST MEDENT ([facility]) F41.1 Generalized anxiety disorder Generalized anxiety disor miguel Problem 07/11/2020 12:00:00 AM EST MEDENT ([facility]) C25.9 Malignant neoplasm of pancreas, unspecif ied Malignant neoplasm of pancreas, unspecified Problem 05/16/2020 01:00:00 AM EDT SERGE ([facility]) I10 Essential (primary) hypertension Essential (primary) h ypertension Problem 05/16/2020 01:00:00 AM EDT NETSMART ([facility] ) Z91.81 History of falling History of falling Problem 0 01:00:00 AM EDT NETSMART ([facility]) Z79.82 custodial (current) use of aspirin custodial (cu rrent) use of aspirin Problem 05/16/2020 01:00:00 AM EDT NETSMART ([facility]) Z79.891 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 (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) 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 Problem 05/16/2020 01:00:00 AM EDT NETSMART ([facility]) 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 Problem 05/16/2020 01:00:00 AM EDT NETSMART ([facility]) Z48.3 Aftercare following surgery for neoplasm Aftercare following surgery for neoplasm Problem 05/16/2020 01:00:00 AM EDT NETSMART ([facility]) Surgeries/Procedures No Information Results ID Date Data Source [id number] 03/19/2021 10:28:00 PM EDT [facility] Name Value Range Interpretation Code Description Data Aby rce(s) Supporting Document(s) SARS coronavirus 2 RNA [Presence] in Res piratory specimen by MAGI with probe detection NEGATIVE [facility] This lab was ordered by [facility] a nd reported by [facility]. ID Date Data Source [id number] 10/26/2020 08:26:00 AM EDT MED[facility] ([facility]) Name Value Range Interpretation Code Description Data Aby rce(s) Supporting Document(s) Blood Urea Nitrogen 17 mg/dL 7-18 Normal (applies to non-nume clarissa results) [facility] ([facility]) Creatinine For GFR 0.52 mg/dL 0.55-1.30 Below low normal [facility] ([facility]) Glucose, Fasting 109 mg/dL 70-100 Above high normal M [facility]ENT ([facility]) Sodium Level 137 meq/L 136-145 Normal (applies to non-numeric res ults) [facility] ([facility]) Glomerular Filtration Rate Laboratory test result Normal (applies to non- numeric results) [facility] ([facility]) <content>Units are mL/min/1.73 m2</content>
<content></content>
<content>Chronic Kidney Disease Staging per NKF:</content>
<content></content>
<content>Stage I & II GFR >=60 Normal to Mildly Decreased</content>
<content>Stage III GFR 30- 59 Moderately Decreased</content>
<content>Stage IV GFR 15-29 Severely Decreased</content>
<content>Stage V GFR <15 Very Little GFR Left</content>
<content>ESRD GFR <15 on MAINTENANCE PAINTER APPRENTICE</content>
<content></content> Chloride Level 107 meq/L 98-107 Normal (applies to non-numeric r esults) [facility] ([facility]) Potassium Serum 4.3 meq/L 3.5-5.1 Normal (applies to non-numeric results) [facility] ([facility]) Anion Gap 5 meq/L 8-16 Below low normal [facility] Carbon Dioxide Level 25 meq/L 21-32 Normal (applies to non-num grady results) [facility] ([facility]) Calcium Level 7.6 mg/dL 8.8-10.2 Below low normal [facility] ([facility]) Alt/SGPT 25 U/L 12-78 Normal (applies to non-numeric resul ts) [facility] ([facility]) Alkaline Phosphatase 178 U/L 45-117 Above high normal [facility] Ast/Sgot 37 U/L 7-37 Normal (applies to non-numeric resul ts) [facility] ([facility]) Bilirubin,Total 0.5 mg/dL 0.2-1.0 Normal (applies to non-numeric results) [facility] Total Protein 5.1 GM/DL 6.4-8.2 Below low normal [facility] ([facility]) Albumin 2.0 GM/DL 3.2-5.2 Below low normal [facility] ( [facility]) Albumin/Globulin Ratio 0.6 1.2-2.2 Below low normal [facility] ([facility]) ID Date Data Source [id number] 10/26/2020 08:26:00 AM EDT MED[facility] ([facility]) Name Value Range Interpretation Code Description Data Aby rce(s) Supporting Document(s) Platelets reticulated/100 platelets in Blood by Automated count 5.4 % 0.0-9.59 Normal (applies to non-numeric results) [facility] ([facility]) ID Date Data Source [id number] 10/26/2020 08:26:00 AM EDT [facility] ([facility]) Name Value Range Interpretation Code Description Data Aby rce(s) Supporting Document(s) White Blood Count 3.7 10 4.0-10.0 Below low normal M [facility] ([facility]) Red Blood Count 2.85 10 4.00-5.40 Below low normal [facility] ([facility]) Hematocrit 29.3 % 36.0-47.0 Below low normal [facility] ( [facility]) Hemoglobin 9.3 g/dL 12.0-15.5 Below low normal [facility] ( [facility]) Mean Corpuscular Volume 102.8 fl 80.0-96.0 Above high normal [facility] ([facility]) Mean Corpuscular Hemoglobin 32.6 pg 27.0-33.0 Norm al (applies to non-numeric results) [facility] ([facility]) Mean Corpuscular HGB Conc 31.7 g/dL 32.0-36.5 Below low normal [facility] ([facility]) Platelet Count, Automated 80 10 150-450 Below low normal [facility] ([facility]) Red Cell Distribution Width 22.4 % 11.5-14.5 Above high normal [facility] ([facility]) Neutrophils % 60.1 % 36.0-66.0 Normal (applies to non-numeric re sults) [facility] ([facility]) [place] % 15.9 % 2.0-8.0 Above high normal [facility] ([facility]) Lymph % 21.9 % 24.0-44.0 Below low normal [facility] ( [facility]) Eos % 0.8 % 0.0-3.0 Normal (applies to non-numeric resul ts) [facility] ([facility]) Baso % 0.8 % 0.0-1.0 Normal (applies to non-numeric resul ts) [facility] ([facility]) Neutrophils # 2.2 10 1.5-8.5 Normal (applies to non-numeric re sults) [facility] ([facility]) Nucleated Red Blood Cell % 0.0 % 0-0 Normal (applies to n on-numeric results) [facility] ([facility]) Immature Granulocyte % 0.5 % 0-3.0 Normal (applies to non-n umeric results) [facility] ([facility]) [place] # 0.6 10 0.0-0.8 Normal (applies to non-numeric resul ts) [facility] ([facility]) Lymph # 0.8 10 1.5-5.0 Below low normal [facility] ( [facility]) Eos # 0.0 10 0.0-0.5 Normal (applies to non-numeric resul ts) [facility] ([facility]) Baso # 0.0 10 0.0-0.2 Normal (applies to non-numeric resul ts) [facility] ([facility]) ID Date Data Source [id number] 10/21/2020 09:20:00 AM EST [facility] ([facility]) Name Value Range Interpretation Code Description Data Aby rce(s) Supporting Document(s) Platelets reticulated/100 platelets in Blood by Automated count 3.8 % 0.0-9.59 Normal (applies to non-numeric results) [facility] ([facility]) ID Date Data Source [id number] 10/21/2020 09:20:00 AM EST [facility] ([facility]) Name Value Range Interpretation Code Description Data Aby rce(s) Supporting Document(s) White Blood Count 3.4 10 4.0-10.0 Below low normal M [facility] ([facility]) Hemoglobin 8.6 g/dL 12.0-15.5 Below low normal [facility] ( [facility]) Hematocrit 26.5 % 36.0-47.0 Below low normal [facility] ( [facility]) Red Blood Count 2.66 10 4.00-5.40 Below low normal [facility] ([facility]) Mean Corpuscular Hemoglobin 32.3 pg 27.0-33.0 Norm al (applies to non-numeric results) [facility] ([facility]) Mean Corpuscular Volume 99.6 fl 80.0-96.0 Above high normal [facility] ([facility]) Mean Corpuscular HGB Conc 32.5 g/dL 32.0-36.5 Normal (applies to non-numeric results) [facility] ([facility]) Red Cell Distribution Width 20.2 % 11.5-14.5 Above high normal [facility] ([facility]) Platelet Count, Automated 37 10 150-450 Below low normal [facility] ([facility]) Neutrophils % 82.0 % 36.0-66.0 Above high normal [facility] NT ([facility]) Lymph % 12.7 % 24.0-44.0 Below low normal [facility] ( [facility]) Eos % 0.3 % 0.0-3.0 Normal (applies to non-numeric resul ts) [facility] ([facility]) [place] % 4.1 % 2.0-8.0 Normal (applies to non-numeric resul ts) [facility] ([facility]) Nucleated Red Blood Cell % 0.9 % 0-0 Above high normal [facility] ([facility]) Baso % 0.0 % 0.0-1.0 Normal (applies to non-numeric resul ts) [facility] ([facility]) Immature Granulocyte % 0.9 % 0-3.0 Normal (applies to non-n umeric results) [facility] ([facility]) [place] # 0.1 10 0.0-0.8 Normal (applies to non-numeric resul ts) [facility] ([facility]) Neutrophils # 2.8 10 1.5-8.5 Normal (applies to non-numeric re sults) [facility] ([facility]) Lymph # 0.4 10 1.5-5.0 Below low normal [facility] ( [facility]) Baso # 0.0 10 0.0-0.2 Normal (applies to non-numeric resul ts) [facility] ([facility]) Eos # 0.0 10 0.0-0.5 Normal (applies to non-numeric resul ts) [facility]) ID Date Data Source [id number] 10/21/2020 09:20:00 AM EST [facility] ([facility]) Name Value Range Interpretation Code Description Data Aby rce(s) Supporting Document(s) Glucose, Fasting 96 mg/dL 70-100 Normal (applies to non-numeric results) [facility] ([facility]) Blood Urea Nitrogen 18 mg/dL 7-18 Normal (applies to non-nume clarissa results) [facility] ([facility]) Creatinine For GFR 0.62 mg/dL 0.55-1.30 Normal (applies to non -numeric results) [facility] ([facility]) Sodium Level 139 meq/L 136-145 Normal (applies to non-numeric res ults) [facility] ([facility]) Glomerular Filtration Rate Laboratory test result Normal (applies to non- numeric results) [facility] ([facility]) <content>Units are mL/min/1.73 m2</content>
<content></content>
<content>Chronic Kidney Disease Staging per NKF:</content>
<content></content>
<content>Stage I & II GFR >=60 Normal to Mildly Decreased</content>
<content>Stage III GFR 30- 59 Moderately Decreased</content>
<content>Stage IV GFR 15-29 Severely Decreased</content>
<content>Stage V GFR <15 Very Little GFR Left</content>
<content>ESRD GFR <15 on MAINTENANCE PAINTER APPRENTICE</content>
<content></content> Potassium Serum 3.4 meq/L 3.5-5.1 Below low normal [facility] ([facility]) Chloride Level 108 meq/L 98-107 Above high normal [facility] ([facility]) Calcium Level 7.3 mg/dL 8.8-10.2 Below low normal [facility] ([facility]) Carbon Dioxide Level 25 meq/L 21-32 Normal (applies to non-num grady results) [facility] ([facility]) Anion Gap 6 meq/L 8-16 Below low normal [facility] Alkaline Phosphatase 246 U/L 45-117 Above high normal [facility] Ast/Sgot 43 U/L 7-37 Above high normal [facility] Alt/SGPT 32 U/L 12-78 Normal (applies to non-numeric resul ts) [facility] ([facility]) Total Protein 4.9 GM/DL 6.4-8.2 Below low normal [facility] Bilirubin,Total 0.5 mg/dL 0.2-1.0 Normal (applies to non-numeric results) [facility] Albumin/Globulin Ratio 0.6 1.2-2.2 Below low normal [facility] ([facility]) Albumin 1.8 GM/DL 3.2-5.2 Below low normal [facility] ( [facility]) ID Date Data Source [id number] 10/12/2020 02:09:00 PM EST [facility] ([facility]) Name Value Range Interpretation Code Description Data Aby rce(s) Supporting Document(s) Prothrombin Time 15.0 s 12.5-14.3 Above high normal [facility] ([facility]) Partial Thromboplastin Time 40.0 s 24.2-38.5 Above high normal [facility] ([facility]) Inr 1.15 Normal (applies to non-numeric resul ts) [facility] ([facility]) THERAPUTIC HUMAN INR VALUES INDICATIONS NORMAL RANGES PROPHYLAXIS/TREATMENT OF: VENOUS THROMBOSIS 2.0-3.0 PULMONARY EMBOLISM 2.0-3.0 PREVENTION OF SYSTEMIC EMBOLISM FROM: TISSUE HEART VALVES 2.0-3.0 ACUTE MYOCARDIAL INFARCTION 2.0-3.0 VALVULAR HEART DISEASE 2.0-3.0 ATRIAL FIBRILLATION 2.0-3.0 MECHANICAL VALVES(HIGH RISK) 2.5-3.5 RECURRENT MYOCARDIAL INFARCTION 2.5-3.5 ID Date Data Source [id number] 10/12/2020 09:36:00 AM EST [facility] Name Value Range Interpretation Code Description Data Aby rce(s) Supporting Document(s) Cancer Ag 19-9 [Presence] in Serum or Plasma 493.2 U/ML Ab ove high normal [facility] ([facility]) THE CA 19-9 ASSAY IS PERFORMED ON THE [employer] BY CHEMILUMINESCENCE AND SHOULD NOT BE COMPARED INTERCHANGEABLY WITH OTHER METHODS. IT SHOULD NOT BE USED ALONE A SCREENING TEST OR DIAGNOSIS FOR THE PRESENCE OR ABSENCE OF MALIGNANT DISEASE. PREDICTIONS OF DISEASE RECURRENCE SHOULD NOT BE BASED SOLELY ON VALUES OBTAINED FROM SERIAL PATIENT SERUM VALUES. ID Date Data Source [id number] 10/12/2020 09:36:00 AM EST [facility] ([facility]) Name Value Range Interpretation Code Description Data Aby rce(s) Supporting Document(s) Blood Urea Nitrogen 15 mg/dL 7-18 Normal (applies to non-nume clarissa results) [facility] ([facility]) Glucose, Fasting 111 mg/dL 70-100 Above high normal [facility] Creatinine For GFR 0.68 mg/dL 0.55-1.30 Normal (applies to non -numeric results) [facility] ([facility]) Glomerular Filtration Rate Laboratory test result Normal (applies to non- numeric results) [facility]) <content>Units are mL/min/1.73 m2</content>
<content></content>
<content>Chronic Kidney Disease Staging per NKF:</content>
<content></content>
<content>Stage I & II GFR >=60 Normal to Mildly Decreased</content>
<content>Stage III GFR 30- 59 Moderately Decreased</content>
<content>Stage IV GFR 15-29 Severely Decreased</content>
<content>Stage V GFR <15 Very Little GFR Left</content>
<content>ESRD GFR <15 on MAINTENANCE PAINTER APPRENTICE</content>
<content></content> Potassium Serum 3.8 meq/L 3.5-5.1 Normal (applies to non-numeric results) [facility] ([facility]) Chloride Level 107 meq/L 98-107 Normal (applies to non-numeric r esults) [facility] ([facility]) Sodium Level 138 meq/L 136-145 Normal (applies to non-numeric res ults) [facility] ([facility]) Carbon Dioxide Level 24 meq/L 21-32 Normal (applies to non-num grady results) [facility] ([facility]) Anion Gap 7 meq/L 8-16 Below low normal [facility] ( [facility]) Ast/Sgot 41 U/L 7-37 Above high normal [facility] ([facility]) Calcium Level 7.9 mg/dL 8.8-10.2 Below low normal [facility] ([facility]) Alt/SGPT 33 U/L 12-78 Normal (applies to non-numeric resul ts) [facility] ([facility]) Alkaline Phosphatase 210 U/L 45-117 Above high normal [facility] ([facility]) Bilirubin,Total 0.6 mg/dL 0.2-1.0 Normal (applies to non-numeric results) [facility] ([facility]) Albumin/Globulin Ratio 0.6 1.2-2.2 Below low normal [facility] ([facility]) Albumin 2.1 GM/DL 3.2-5.2 Below low normal [facility] ( [facility]) Total Protein 5.5 GM/DL 6.4-8.2 Below low normal [facility] ([facility]) ID Date Data Source [id number] 10/12/2020 09:36:00 AM EST [facility] ([facility]) Name Value Range Interpretation Code Description Data Aby rce(s) Supporting Document(s) White Blood Count 7.3 10 4.0-10.0 Normal (applies to non-numeri c results) [facility] ([facility]) Hemoglobin 9.3 g/dL 12.0-15.5 Below low normal [facility] ( [facility]) Red Blood Count 2.98 10 4.00-5.40 Below low normal [facility] ([facility]) Mean Corpuscular Volume 98.3 fl 80.0-96.0 Above high normal [facility] ([facility]) Hematocrit 29.3 % 36.0-47.0 Below low normal [facility] ( [facility]) Mean Corpuscular HGB Conc 31.7 g/dL 32.0-36.5 Below low normal [facility] ([facility]) Mean Corpuscular Hemoglobin 31.2 pg 27.0-33.0 Norm al (applies to non-numeric results) [facility] ([facility]) Platelet Count, Automated 238 10 150-450 Normal (applies to non-numeric results) [facility] ([facility]) Red Cell Distribution Width 21.4 % 11.5-14.5 Above high normal [facility] ([facility]) [place] % 6.4 % 2.0-8.0 Normal (applies to non-numeric resul ts) [facility] ([facility]) Lymph % 10.1 % 24.0-44.0 Below low normal [facility] ( [facility]) Neutrophils % 81.2 % 36.0-66.0 Above high normal [facility] ([facility]) Eos % 0.8 % 0.0-3.0 Normal (applies to non-numeric resul ts) [facility] ([facility]) Baso % 0.8 % 0.0-1.0 Normal (applies to non-numeric resul ts) [facility] ([facility]) Neutrophils # 5.9 10 1.5-8.5 Normal (applies to non-numeric re sults) [facility] ([facility]) Nucleated Red Blood Cell % 0.0 % 0-0 Normal (applies to n on-numeric results) [facility] ([facility]) Immature Granulocyte % 0.7 % 0-3.0 Normal (applies to non-n umeric results) [facility] ([facility]) [place] # 0.5 10 0.0-0.8 Normal (applies to non-numeric resul ts) [facility] ([facility]) Eos # 0.1 10 0.0-0.5 Normal (applies to non-numeric resul ts) [facility] ([facility]) Lymph # 0.7 10 1.5-5.0 Below low normal [facility] ( [facility]) Baso # 0.1 10 0.0-0.2 Normal (applies to non-numeric resul ts) [facility] ([facility]) ID Date Data Source [id number] 09/16/2020 03:37:00 PM EST [facility] ([facility]) Name Value Range Interpretation Code Description Data Aby rce(s) Supporting Document(s) White Blood Count 28.5 10 4.0-10.0 Above high normal [facility] ([facility]) A Pathologist review of this differentia l can help in the evaluation of a differential diagnosis. Please order a Pathologist Review (PERISM) if deemed necessary. Results are subject to change if a Pathologist Review is performed. Hematocrit 30.9 % 36.0-47.0 Below low normal [facility] ( [facility]) Hemoglobin 10.2 g/dL 12.0-15.5 Below low normal [facility] ( [facility]) Red Blood Count 3.45 10 4.00-5.40 Below low normal [facility] ([facility]) Mean Corpuscular Volume 89.6 fl 80.0-96.0 Normal ( applies to non-numeric results) [facility] Mean Corpuscular Hemoglobin 29.6 pg 27.0-33.0 Norm al (applies to non-numeric results) [facility] ([facility]) Red Cell Distribution Width 17.4 % 11.5-14.5 Above high normal [facility] ([facility]) Platelet Count, Automated 125 10 150-450 Below low normal [facility] ([facility]) Mean Corpuscular HGB Conc 33.0 g/dL 32.0-36.5 Normal (applies to non-numeric results) [facility] ([facility]) Neutrophils % 74.5 % 36.0-66.0 Above high normal [facility] ([facility]) Eos % 0.0 % 0.0-3.0 Normal (applies to non-numeric resul ts) [facility] ([facility]) [place] % 5.8 % 0.0-5.0 Above high normal [facility] ([facility]) Lymph % 5.1 % 24.0-44.0 Below low normal [facility] ( [facility]) Nucleated Red Blood Cell % 0.1 % 0-0 Above high normal [facility] ([facility]) Immature Granulocyte % 14.4 % 0-3.0 Above high normal [facility] ([facility]) Baso % 0.2 % 0.0-1.0 Normal (applies to non-numeric resul ts) [facility] ([facility]) Neutrophils # 21.2 10 1.5-8.5 Above high normal [facility] ([facility]) Lymph # 1.5 10 1.5-5.0 Normal (applies to non-numeric resul ts) [facility] ([facility]) [place] # 1.6 10 0.0-0.8 Above high normal [facility] ([facility]) Eos # 0.0 10 0.0-0.5 Normal (applies to non-numeric resul ts) [facility] ([facility]) Baso # 0.1 10 0.0-0.2 Normal (applies to non-numeric resul ts) [facility] ([facility]) ID Date Data Source [id number] 09/10/2020 02:40:00 AM EST [facility] Name Value Range Interpretation Code Description Data Aby rce(s) Supporting Document(s) SARS coronavirus 2 RNA [Presence] in Res piratory specimen by MAGI with probe detection NEGATIVE [facility] This lab was ordered by [facility] a nd reported by [facility]. ID Date Data Source [id number] 09/09/2020 11:45:00 PM EST [facility] ([facility]) Name Value Range Interpretation Code Description Data Aby rce(s) Supporting Document(s) Laboratory test finding (navigational concept) 0.00 ng/mL 0 .00-0.08 Normal (applies to non-numeric results) [facility]) ID Date Data Source [id number] 09/09/2020 08:40:00 PM EST [facility] ([facility]) Name Value Range Interpretation Code Description Data Aby rce(s) Supporting Document(s) White Blood Count 0.5 10 4.0-10.0 Below lower panic limits [facility] ([facility]) Red Blood Count 3.09 10 4.00-5.40 Below low normal [facility] ([facility]) Hematocrit 27.6 % 36.0-47.0 Below low normal [facility] ( [facility]) Mean Corpuscular Volume 89.3 fl 80.0-96.0 Normal ( applies to non-numeric results) [facility] ([facility]) Hemoglobin 9.1 g/dL 12.0-15.5 Below low normal [facility] ( [facility]) Mean Corpuscular HGB Conc 33.0 g/dL 32.0-36.5 Normal (applies to non-numeric results) [facility] ([facility]) Mean Corpuscular Hemoglobin 29.4 pg 27.0-33.0 Norm al (applies to non-numeric results) [facility] ([facility]) Neutrophils % 23.6 % 36.0-66.0 Below low normal [facility] ([facility]) Platelet Count, Automated 35 10 150-450 Below low normal [facility] ([facility]) Red Cell Distribution Width 15.0 % 11.5-14.5 Above high normal [facility] ([facility]) Lymph % 62.7 % 24.0-44.0 Above high normal [facility] ([facility]) [place] % 13.7 % 0.0-5.0 Above high normal [facility] ([facility]) Eos % 0.0 % 0.0-3.0 Normal (applies to non-numeric resul ts) [facility] ([facility]) Immature Granulocyte % 0.0 % 0-3.0 Normal (applies to non-n umeric results) [facility] ([facility]) Baso % 0.0 % 0.0-1.0 Normal (applies to non-numeric resul ts) [facility] ([facility]) Nucleated Red Blood Cell % 0.0 % 0-0 Normal (applies to n on-numeric results) [facility] ([facility]) Lymph # 0.3 10 1.5-5.0 Below low normal [facility] ( [facility]) Neutrophils # 0.1 10 1.5-8.5 Below low normal [facility] ([facility]) Scan Verified machine results Eos # 0.0 10 0.0-0.5 Normal (applies to non-numeric resul ts) [facility] ([facility]) [place] # 0.1 10 0.0-0.8 Normal (applies to non-numeric resul ts) [facility] ([facility]) Baso # 0.0 10 0.0-0.2 Normal (applies to non-numeric resul ts) [facility] ([facility]) ID Date Data Source [id number] 09/09/2020 08:40:00 PM EST [facility] ([facility]) Name Value Range Interpretation Code Description Data Aby rce(s) Supporting Document(s) Platelets reticulated/100 platelets in Blood by Automated count 5.1 % 0.0-9.59 Normal (applies to non-numeric results) [facility] ([facility]) ID Date Data Source [id number] 09/09/2020 07:38:00 PM EST [facility] ([facility]) Name Value Range Interpretation Code Description Data Aby rce(s) Supporting Document(s) Alt/SGPT 17 U/L 12-78 Normal (applies to non-numeric resul ts) [facility] ([facility]) Ast/Sgot 12 U/L 7-37 Normal (applies to non-numeric resul ts) [facility] ([facility]) Bilirubin,Total 0.6 mg/dL 0.2-1.0 Normal (applies to non-numeric results) [facility] ([facility]) Bilirubin,Direct 0.3 mg/dL 0.0-0.2 Above high normal [facility] ([facility]) Alkaline Phosphatase 117 U/L 45-117 Normal (applies to non-num grady results) [facility] ([facility]) Total Protein 5.2 GM/DL 6.4-8.2 Below low normal [facility] ([facility]) Albumin 2.2 GM/DL 3.2-5.2 Below low normal [facility] Albumin/Globulin Ratio 0.7 1.2-2.2 Below low normal [facility] ([facility]) ID Date Data Source [id number] 09/09/2020 07:38:00 PM EST [facility] ([facility]) Name Value Range Interpretation Code Description Data Aby rce(s) Supporting Document(s) Glucose, Fasting 113 mg/dL 70-100 Above high normal [facility] ([facility]) Creatinine For GFR 0.53 mg/dL 0.55-1.30 Below low normal [facility] Blood Urea Nitrogen 16 mg/dL 7-18 Normal (applies to non-nume clarissa results) [facility] Sodium Level 138 meq/L 136-145 Normal (applies to non-numeric res ults) [facility] ([facility]) Glomerular Filtration Rate Laboratory test result Normal (applies to non- numeric results) [facility] ([facility]) <content>Units are mL/min/1.73 m2</content>
<content></content>
<content>Chronic Kidney Disease Staging per NKF:</content>
<content></content>
<content>Stage I & II GFR >=60 Normal to Mildly Decreased</content>
<content>Stage III GFR 30- 59 Moderately Decreased</content>
<content>Stage IV GFR 15-29 Severely Decreased</content>
<content>Stage V GFR <15 Very Little GFR Left</content>
<content>ESRD GFR <15 on MAINTENANCE PAINTER APPRENTICE</content>
<content></content> Carbon Dioxide Level 25 meq/L 21-32 Normal (applies to non-num grady results) [facility] ([facility]) Potassium Serum 2.8 meq/L 3.5-5.1 Below lower panic limits [facility] Chloride Level 101 meq/L 98-107 Normal (applies to non-numeric r esults) [facility] ([facility]) Calcium Level 7.9 mg/dL 8.8-10.2 Below low normal [facility] ([facility]) Anion Gap 12 meq/L 8-16 Normal (applies to non-numeric resul ts) [facility] ([facility]) ID Date Data Source [id number] 09/09/2020 07:38:00 PM EST [facility] ([facility]) Name Value Range Interpretation Code Description Data Aby rce(s) Supporting Document(s) Lipase [Enzymatic activity/volume] in Serum or Plasma 14 U/L 73-393 Below low normal [facility] ([facility]) ID Date Data Source [id number] 09/09/2020 07:31:00 PM EST [facility] Name Value Range Interpretation Code Description Data Aby rce(s) Supporting Document(s) SARS COVID ANTIGEN NEGATIVE [facility] This lab was ordered by REBE[facility] grossman nd reported by [facility]. ID Date Data Source [id number] 08/31/2020 07:37:00 AM EST [facility] ([facility]) Name Value Range Interpretation Code Description Data Aby rce(s) Supporting Document(s) Cancer Ag 19-9 [Presence] in Serum or Plasma 226.4 U/ML Ab ove high normal [facility] ([facility]) THE CA 19-9 ASSAY IS PERFORMED ON THE [employer] BY CHEMILUMINESCENCE AND SHOULD NOT BE COMPARED INTERCHANGEABLY WITH OTHER METHODS. IT SHOULD NOT BE USED ALONE A SCREENING TEST OR DIAGNOSIS FOR THE PRESENCE OR ABSENCE OF MALIGNANT DISEASE. PREDICTIONS OF DISEASE RECURRENCE SHOULD NOT BE BASED SOLELY ON VALUES OBTAINED FROM SERIAL PATIENT SERUM VALUES. Carcinoembryonic Ag [Mass/volume] in Serum or Plasma 5.0 ng/mL Above high normal [facility] ([facility]) THE CEA ASSAY IS PERFORMED ON THE [employer] BY CHEMILUMINESCENCE AND SHOULD NOT BE COMPARED INTERCHANGEABLY WITH OTHER METHODS. IT SHOULD NOT BE USED ALONE A SCREENING TEST OR DIAGNOSIS FOR THE PRESENCE OR ABSENCE OF MALIGNANT DISEASE. PREDICTIONS OF DISEASE RECURRENCE SHOULD NOT BE BASED SOLELY ON VALUES OBTAINED FROM SERIAL PATIENT SERUM VALUES. ID Date Data Source [id number] 08/31/2020 07:37:00 AM EST [facility] ([facility]) Name Value Range Interpretation Code Description Data Aby rce(s) Supporting Document(s) Glucose, Fasting 124 mg/dL 70-100 Above high normal [facility]) Blood Urea Nitrogen 8 mg/dL 7-18 Normal (applies to non-nume clarissa results) [facility] ([facility]) Glomerular Filtration Rate Laboratory test result Normal (applies to non- numeric results) [facility] ([facility]) <content>Units are mL/min/1.73 m2</content>
<content></content>
<content>Chronic Kidney Disease Staging per NKF:</content>
<content></content>
<content>Stage I & II GFR >=60 Normal to Mildly Decreased</content>
<content>Stage III GFR 30- 59 Moderately Decreased</content>
<content>Stage IV GFR 15-29 Severely Decreased</content>
<content>Stage V GFR <15 Very Little GFR Left</content>
<content>ESRD GFR <15 on MAINTENANCE PAINTER APPRENTICE</content>
<content></content> Creatinine For GFR 0.67 mg/dL 0.55-1.30 Normal (applies to non -numeric results) [facility] ([facility]) Potassium Serum 3.1 meq/L 3.5-5.1 Below low normal [facility] ([facility]) Chloride Level 108 meq/L 98-107 Above high normal [facility] ([facility]) Sodium Level 142 meq/L 136-145 Normal (applies to non-numeric res ults) [facility] Anion Gap 8 meq/L 8-16 Normal (applies to non-numeric resul ts) [facility] ([facility]) Carbon Dioxide Level 26 meq/L 21-32 Normal (applies to non-num grady results) [facility] ([facility]) Calcium Level 7.7 mg/dL 8.8-10.2 Below low normal [facility] ([facility]) Ast/Sgot 15 U/L 7-37 Normal (applies to non-numeric resul ts) [facility] ([facility]) Alt/SGPT 13 U/L 12-78 Normal (applies to non-numeric resul ts) [facility] ([facility]) Alkaline Phosphatase 133 U/L 45-117 Above high normal [facility] ([facility]) Total Protein 5.2 GM/DL 6.4-8.2 Below low normal [facility] ([facility]) Bilirubin,Total 0.2 mg/dL 0.2-1.0 Normal (applies to non-numeric results) [facility] ([facility]) Albumin 2.2 GM/DL 3.2-5.2 Below low normal [facility] ( [facility]) Albumin/Globulin Ratio 0.7 1.2-2.2 Below low normal [facility] ([facility]) ID Date Data Source [id number] 08/31/2020 07:37:00 AM EST [facility] ([facility]) Name Value Range Interpretation Code Description Data Aby rce(s) Supporting Document(s) White Blood Count 15.7 10 4.0-10.0 Above high normal [facility] ([facility]) Red Blood Count 3.12 10 4.00-5.40 Below low normal [facility] ([facility]) Mean Corpuscular Volume 93.3 fl 80.0-96.0 Normal ( applies to non-numeric results) [facility] ([facility]) Hematocrit 29.1 % 36.0-47.0 Below low normal [facility] ( [facility]) Hemoglobin 9.2 g/dL 12.0-15.5 Below low normal [facility] ( [facility]) Mean Corpuscular Hemoglobin 29.5 pg 27.0-33.0 Norm al (applies to non-numeric results) [facility] ([facility]) Mean Corpuscular HGB Conc 31.6 g/dL 32.0-36.5 Below low normal [facility] ([facility]) Neutrophils % 73.1 % 36.0-66.0 Above high normal [facility] ([facility]) Red Cell Distribution Width 16.9 % 11.5-14.5 Above high normal [facility] ([facility]) Platelet Count, Automated 121 10 150-450 Below low normal [facility] ([facility]) Lymph % 10.1 % 24.0-44.0 Below low normal [facility] ( [facility]) [place] % 7.0 % 0.0-5.0 Above high normal [facility] ([facility]) Eos % 0.4 % 0.0-3.0 Normal (applies to non-numeric resul ts) [facility] ([facility]) Baso % 0.6 % 0.0-1.0 Normal (applies to non-numeric resul ts) [facility] ([facility]) Immature Granulocyte % 8.8 % 0-3.0 Above high normal [facility] ([facility]) Neutrophils # 11.5 10 1.5-8.5 Above high normal [facility] ([facility]) Lymph # 1.6 10 1.5-5.0 Normal (applies to non-numeric resul ts) [facility] ([facility]) Nucleated Red Blood Cell % 0.1 % 0-0 Above high normal [facility] ([facility]) Eos # 0.1 10 0.0-0.5 Normal (applies to non-numeric resul ts) [facility] ([facility]) [place] # 1.1 10 0.0-0.8 Above high normal [facility] ([facility]) Baso # 0.1 10 0.0-0.2 Normal (applies to non-numeric resul ts) [facility] ([facility]) ID Date Data Source [id number] 08/16/2020 09:40:00 AM EST [facility] ([facility]) Name Value Range Interpretation Code Description Data Aby rce(s) Supporting Document(s) White Blood Count 5.5 10 4.0-10.0 Normal (applies to non-numeri c results) [facility] ([facility]) Red Blood Count 3.43 10 4.00-5.40 Below low normal [facility] ([facility]) Mean Corpuscular Volume 94.8 fl 80.0-96.0 Normal ( applies to non-numeric results) [facility] ([facility]) Hemoglobin 10.2 g/dL 12.0-15.5 Below low normal [facility] ( [facility]) Hematocrit 32.5 % 36.0-47.0 Below low normal [facility] ( [facility]) Red Cell Distribution Width 16.6 % 11.5-14.5 Above high normal [facility] ([facility]) Mean Corpuscular HGB Conc 31.4 g/dL 32.0-36.5 Below low normal [facility] ([facility]) Mean Corpuscular Hemoglobin 29.7 pg 27.0-33.0 Norm al (applies to non-numeric results) [facility] ([facility]) Neutrophils % 74.2 % 36.0-66.0 Above high normal [facility] ([facility]) Platelet Count, Automated 236 10 150-450 Normal (applies to non-numeric results) [facility] ([facility]) Lymph % 17.4 % 24.0-44.0 Below low normal [facility] ( [facility]) Baso % 0.6 % 0.0-1.0 Normal (applies to non-numeric resul ts) [facility] ([facility]) [place] % 7.2 % 0.0-5.0 Above high normal [facility] ([facility]) Eos % 0.4 % 0.0-3.0 Normal (applies to non-numeric resul ts) [facility] ([facility]) Immature Granulocyte % 0.2 % 0-3.0 Normal (applies to non-n umeric results) [facility] ([facility]) Nucleated Red Blood Cell % 0.0 % 0-0 Normal (applies to n on-numeric results) [facility] ([facility]) Neutrophils # 4.1 10 1.5-8.5 Normal (applies to non-numeric re sults) [facility] ([facility]) Lymph # 1.0 10 1.5-5.0 Below low normal [facility] ( [facility]) [place] # 0.4 10 0.0-0.8 Normal (applies to non-numeric resul ts) [facility] ([facility]) Eos # 0.0 10 0.0-0.5 Normal (applies to non-numeric resul ts) [facility] ([facility]) Baso # 0.0 10 0.0-0.2 Normal (applies to non-numeric resul ts) [facility] ([facility]) ID Date Data Source [id number] 08/02/2020 11:26:00 AM EST [facility] Name Value Range Interpretation Code Description Data Aby rce(s) Supporting Document(s) Transferrin receptor.soluble [Mass/volume] in Serum or Plasm a 22.5 nmol/L 12.2-27.3 Normal (applies to non-numeric results) [facility] ([facility]) Performed at: - Lab[address] [id number] 61 Watch Repairer: Sherron Cottrell MD, Phone: [phone] ID Date Data Source [id number] 08/02/2020 09:02:00 AM EST [facility]) Name Value Range Interpretation Code Description Data Aby rce(s) Supporting Document(s) Hemoglobin 9.8 g/dL 12.0-15.5 Below low normal [facility] ( [facility]) Red Blood Count 3.31 10 4.00-5.40 Below low normal [facility] ([facility]) White Blood Count 4.6 10 4.0-10.0 Normal (applies to non-numeri c results) [facility] ([facility]) Hematocrit 32.1 % 36.0-47.0 Below low normal [facility] ( [facility]) Mean Corpuscular Volume 97.0 fl 80.0-96.0 Above high normal [facility] ([facility]) Mean Corpuscular Hemoglobin 29.6 pg 27.0-33.0 Norm al (applies to non-numeric results) [facility] ([facility]) Mean Corpuscular HGB Conc 30.5 g/dL 32.0-36.5 Below low normal [facility] ([facility]) Red Cell Distribution Width 17.5 % 11.5-14.5 Above high normal [facility] ([facility]) Neutrophils % 70.5 % 36.0-66.0 Above high normal [facility] ([facility]) Platelet Count, Automated 216 10 150-450 Normal (applies to non-numeric results) [facility] ([facility]) [place] % 6.8 % 0.0-5.0 Above high normal [facility] ([facility]) Lymph % 21.5 % 24.0-44.0 Below low normal [facility] ( [facility]) Baso % 0.4 % 0.0-1.0 Normal (applies to non-numeric resul ts) [facility] ([facility]) Eos % 0.4 % 0.0-3.0 Normal (applies to non-numeric resul ts) [facility] ([facility]) Nucleated Red Blood Cell % 0.0 % 0-0 Normal (applies to n on-numeric results) [facility] ([facility]) Immature Granulocyte % 0.4 % 0-3.0 Normal (applies to non-n umeric results) [facility] ([facility]) Neutrophils # 3.2 10 1.5-8.5 Normal (applies to non-numeric re sults) [facility] ([facility]) Lymph # 1.0 10 1.5-5.0 Below low normal [facility] ( [facility]) Eos # 0.0 10 0.0-0.5 Normal (applies to non-numeric resul ts) [facility] ([facility]) Baso # 0.0 10 0.0-0.2 Normal (applies to non-numeric resul ts) [facility] ([facility]) [place] # 0.3 10 0.0-0.8 Normal (applies to non-numeric resul ts) [facility] ([facility]) ID Date Data Source [id number] 08/02/2020 09:02:00 AM EST [facility] ([facility]) Name Value Range Interpretation Code Description Data Aby rce(s) Supporting Document(s) Glucose, Fasting 96 mg/dL 70-100 Normal (applies to non-numeric results) [facility] ([facility]) Blood Urea Nitrogen 11 mg/dL 7-18 Normal (applies to non-nume clarissa results) [facility] ([facility]) Creatinine For GFR 0.52 mg/dL 0.55-1.30 Below low normal [facility] ([facility]) Sodium Level 142 meq/L 136-145 Normal (applies to non-numeric res ults) [facility] ([facility]) Glomerular Filtration Rate Laboratory test result Normal (applies to non- numeric results) [facility] ([facility]) <content>Units are mL/min/1.73 m2</content>
<content></content>
<content>Chronic Kidney Disease Staging per NKF:</content>
<content></content>
<content>Stage I & II GFR >=60 Normal to Mildly Decreased</content>
<content>Stage III GFR 30- 59 Moderately Decreased</content>
<content>Stage IV GFR 15-29 Severely Decreased</content>
<content>Stage V GFR <15 Very Little GFR Left</content>
<content>ESRD GFR <15 on MAINTENANCE PAINTER APPRENTICE</content>
<content></content> Potassium Serum 3.9 meq/L 3.5-5.1 Normal (applies to non-numeric results) [facility] ([facility]) Carbon Dioxide Level 26 meq/L 21-32 Normal (applies to non-num grady results) [facility] Chloride Level 109 meq/L 98-107 Above high normal [facility] ([facility]) Anion Gap 7 meq/L 8-16 Below low normal [facility] Calcium Level 8.1 mg/dL 8.8-10.2 Below low normal [facility] ([facility]) Alt/SGPT 12 U/L 12-78 Normal (applies to non-numeric resul ts) [facility] ([facility]) Alkaline Phosphatase 115 U/L 45-117 Normal (applies to non-num grady results) [facility] Ast/Sgot 15 U/L 7-37 Normal (applies to non-numeric resul ts) [facility] ([facility]) Total Protein 5.9 GM/DL 6.4-8.2 Below low normal [facility] ([facility]) Bilirubin,Total 0.5 mg/dL 0.2-1.0 Normal (applies to non-numeric results) [facility] Albumin/Globulin Ratio 0.6 1.2-2.2 Below low normal [facility] Albumin 2.3 GM/DL 3.2-5.2 Below low normal [facility] ( [facility]) ID Date Data Source [id number] 08/02/2020 09:02:00 AM EST [facility] ([facility]) Name Value Range Interpretation Code Description Data Aby rce(s) Supporting Document(s) Cancer Ag 19-9 [Presence] in Serum or Plasma 69.0 U/ML Ab ove high normal [facility] ([facility]) THE CA 19-9 ASSAY IS PERFORMED ON THE [employer] BY CHEMILUMINESCENCE AND SHOULD NOT BE COMPARED INTERCHANGEABLY WITH OTHER METHODS. IT SHOULD NOT BE USED ALONE A SCREENING TEST OR DIAGNOSIS FOR THE PRESENCE OR ABSENCE OF MALIGNANT DISEASE. PREDICTIONS OF DISEASE RECURRENCE SHOULD NOT BE BASED SOLELY ON VALUES OBTAINED FROM SERIAL PATIENT SERUM VALUES. Carcinoembryonic Ag [Mass/volume] in Serum or Plasma 3.1 ng/mL Above high normal [facility] ([facility]) THE CEA ASSAY IS PERFORMED ON THE [employer] BY CHEMILUMINESCENCE AND SHOULD NOT BE COMPARED INTERCHANGEABLY WITH OTHER METHODS. IT SHOULD NOT BE USED ALONE A SCREENING TEST OR DIAGNOSIS FOR THE PRESENCE OR ABSENCE OF MALIGNANT DISEASE. PREDICTIONS OF DISEASE RECURRENCE SHOULD NOT BE BASED SOLELY ON VALUES OBTAINED FROM SERIAL PATIENT SERUM VALUES. ID Date Data Source [id number] 08/02/2020 09:02:00 AM EST [facility] ([facility]) Name Value Range Interpretation Code Description Data Aby rce(s) Supporting Document(s) Folate 14.1 ng/mL Normal (applies to non-numeric resul ts) [facility] ([facility]) FOLATE NORMAL RANGE NORMAL GREATER THAN 5.4 NG/ML INDETERMINATE 3.4-5.4 NG/ML DEFICIENT LESS THAN 3.4 NG/ML Vitamin B12 Level 353 pg/mL Normal (applies to non-numeri c results) [facility] ([facility]) VITAMIN B12 NORMAL RANGE NORMAL 247 - 911 PG/ML INDETERMINATE 211 - 246 PG/ML DEFICIENT LESS THAN 211 PG/ML ID Date Data Source [id number] 07/04/2020 02:46:00 PM EST [facility] ([facility]) Name Value Range Interpretation Code Description Data Aby rce(s) Supporting Document(s) Cancer Ag 19-9 [Presence] in Serum or Plasma 31.0 U/ML Normal (applies to non- numeric results) [facility] ([facility]) THE CA 19-9 ASSAY IS PERFORMED ON THE [employer] BY CHEMILUMINESCENCE AND SHOULD NOT BE COMPARED INTERCHANGEABLY WITH OTHER METHODS. IT SHOULD NOT BE USED ALONE A SCREENING TEST OR DIAGNOSIS FOR THE PRESENCE OR ABSENCE OF MALIGNANT DISEASE. PREDICTIONS OF DISEASE RECURRENCE SHOULD NOT BE BASED SOLELY ON VALUES OBTAINED FROM SERIAL PATIENT SERUM VALUES. Thyrotropin [Units/volume] in Serum or Plasma 13.300 uIU/ML 0. 358-3.740 Above high normal [facility] ([facility]) Thyroxine (T4) free [Mass/volume] in Serum or Plasma 1.01 ng/dL 0.76-1.46 Normal (applies to non-numeric results) [facility] ([facility]) ID Date Data Source [id number] 07/04/2020 02:46:00 PM EST [facility] ([facility]) Name Value Range Interpretation Code Description Data Aby rce(s) Supporting Document(s) Glucose, Fasting 142 mg/dL 70-100 Above high normal [facility] Creatinine For GFR 0.50 mg/dL 0.55-1.30 Below low normal [facility] ([facility]) Blood Urea Nitrogen 12 mg/dL 7-18 Normal (applies to non-nume clarissa results) [facility] ([facility]) Sodium Level 141 meq/L 136-145 Normal (applies to non-numeric res ults) [facility] ([facility]) Glomerular Filtration Rate Laboratory test result Normal (applies to non- numeric results) [facility] ([facility]) <content>Units are mL/min/1.73 m2</content>
<content></content>
<content>Chronic Kidney Disease Staging per NKF:</content>
<content></content>
<content>Stage I & II GFR >=60 Normal to Mildly Decreased</content>
<content>Stage III GFR 30- 59 Moderately Decreased</content>
<content>Stage IV GFR 15-29 Severely Decreased</content>
<content>Stage V GFR <15 Very Little GFR Left</content>
<content>ESRD GFR <15 on MAINTENANCE PAINTER APPRENTICE</content>
<content></content> Carbon Dioxide Level 23 meq/L 21-32 Normal (applies to non-num grady results) [facility] ([facility]) Potassium Serum 3.5 meq/L 3.5-5.1 Normal (applies to non-numeric results) [facility] ([facility]) Chloride Level 111 meq/L 98-107 Above high normal [facility] ([facility]) Anion Gap 7 meq/L 8-16 Below low normal [facility] Calcium Level 8.6 mg/dL 8.8-10.2 Below low normal [facility] ([facility]) Alt/SGPT 19 U/L 12-78 Normal (applies to non-numeric resul ts) [facility] ([facility]) Ast/Sgot 20 U/L 7-37 Normal (applies to non-numeric resul ts) [facility] ([facility]) Alkaline Phosphatase 122 U/L 45-117 Above high normal [facility] ([facility]) Total Protein 6.0 GM/DL 6.4-8.2 Below low normal [facility] ([facility]) Bilirubin,Total 0.2 mg/dL 0.2-1.0 Normal (applies to non-numeric results) [facility] ([facility]) Albumin/Globulin Ratio 0.8 1.2-2.2 Below low normal [facility] Albumin 2.6 GM/DL 3.2-5.2 Below low normal [facility] ( [facility]) ID Date Data Source [id number] 07/04/2020 02:46:00 PM EST [facility] ([facility]) Name Value Range Interpretation Code Description Data Aby rce(s) Supporting Document(s) White Blood Count 6.3 10 4.0-10.0 Normal (applies to non-numeri c results) [facility] ([facility]) Red Blood Count 3.00 10 4.00-5.40 Below low normal [facility] ([facility]) Hemoglobin 8.9 g/dL 12.0-15.5 Below low normal [facility] Hematocrit 29.4 % 36.0-47.0 Below low normal [facility] ( [facility]) Mean Corpuscular Volume 98.0 fl 80.0-96.0 Above high normal [facility] ([facility]) Mean Corpuscular Hemoglobin 29.7 pg 27.0-33.0 Norm al (applies to non-numeric results) [facility] ([facility]) Platelet Count, Automated 165 10 150-450 Normal (applies to non-numeric results) [facility] ([facility]) Mean Corpuscular HGB Conc 30.3 g/dL 32.0-36.5 Below low normal [facility] ([facility]) Red Cell Distribution Width 16.6 % 11.5-14.5 Above high normal [facility] ([facility]) Neutrophils % 70.3 % 36.0-66.0 Above high normal [facility] ([facility]) Eos % 0.6 % 0.0-3.0 Normal (applies to non-numeric resul ts) [facility] ([facility]) Lymph % 22.5 % 24.0-44.0 Below low normal [facility] ( [facility]) [place] % 5.8 % 0.0-5.0 Above high normal [facility] ([facility]) Baso % 0.3 % 0.0-1.0 Normal (applies to non-numeric resul ts) [facility] ([facility]) Immature Granulocyte % 0.5 % 0-3.0 Normal (applies to non-n umeric results) [facility] ([facility]) Neutrophils # 4.4 10 1.5-8.5 Normal (applies to non-numeric re sults) [facility] ([facility]) Lymph # 1.4 10 1.5-5.0 Below low normal [facility] ( [facility]) Nucleated Red Blood Cell % 0.0 % 0-0 Normal (applies to n on-numeric results) [facility] ([facility]) Eos # 0.0 10 0.0-0.5 Normal (applies to non-numeric resul ts) [facility] ([facility]) [place] # 0.4 10 0.0-0.8 Normal (applies to non-numeric resul ts) [facility] ([facility]) Baso # 0.0 10 0.0-0.2 Normal (applies to non-numeric resul ts) [facility] ([facility]) ID Date Data Source [id number] 06/02/2020 02:47:00 PM EDT [facility] ([facility]) Name Value Range Interpretation Code Description Data Aby rce(s) Supporting Document(s) Cancer Ag 19-9 [Presence] in Serum or Plasma 26.8 U/ML Normal (applies to non- numeric results) [facility] ([facility]) THE CA 19-9 ASSAY IS PERFORMED ON THE [employer] BY CHEMILUMINESCENCE AND SHOULD NOT BE COMPARED INTERCHANGEABLY WITH OTHER METHODS. IT SHOULD NOT BE USED ALONE A SCREENING TEST OR DIAGNOSIS FOR THE PRESENCE OR ABSENCE OF MALIGNANT DISEASE. PREDICTIONS OF DISEASE RECURRENCE SHOULD NOT BE BASED SOLELY ON VALUES OBTAINED FROM SERIAL PATIENT SERUM VALUES. ID Date Data Source [id number] 06/02/2020 02:47:00 PM EDT [facility] ([facility]) Name Value Range Interpretation Code Description Data Aby rce(s) Supporting Document(s) Glucose, Fasting 98 mg/dL 70-100 Normal (applies to non-numeric results) [facility] ([facility]) Blood Urea Nitrogen 9 mg/dL 7-18 Normal (applies to non-nume clarissa results) [facility] ([facility]) Glomerular Filtration Rate Laboratory test result Normal (applies to non- numeric results) [facility] ([facility]) <content>Units are mL/min/1.73 m2</content>
<content></content>
<content>Chronic Kidney Disease Staging per NKF:</content>
<content></content>
<content>Stage I & II GFR >=60 Normal to Mildly Decreased</content>
<content>Stage III GFR 30- 59 Moderately Decreased</content>
<content>Stage IV GFR 15-29 Severely Decreased</content>
<content>Stage V GFR <15 Very Little GFR Left</content>
<content>ESRD GFR <15 on MAINTENANCE PAINTER APPRENTICE</content>
<content></content> Creatinine For GFR 0.38 mg/dL 0.55-1.30 Below low normal [facility] ([facility]) Chloride Level 109 meq/L 98-107 Above high normal [facility] ([facility]) Potassium Serum 4.0 meq/L 3.5-5.1 Normal (applies to non-numeric results) [facility] ([facility]) Sodium Level 141 meq/L 136-145 Normal (applies to non-numeric res ults) [facility] ([facility]) Anion Gap 6 meq/L 8-16 Below low normal [facility] ( [facility]) Carbon Dioxide Level 26 meq/L 21-32 Normal (applies to non-num grady results) [facility] ([facility]) Ast/Sgot 36 U/L 7-37 Normal (applies to non-numeric resul ts) [facility] ([facility]) Calcium Level 7.9 mg/dL 8.8-10.2 Below low normal [facility] ([facility]) Alt/SGPT 37 U/L 12-78 Normal (applies to non-numeric resul ts) [facility] ([facility]) Alkaline Phosphatase 138 U/L 45-117 Above high normal [facility] ([facility]) Bilirubin,Total 0.2 mg/dL 0.2-1.0 Normal (applies to non-numeric results) [facility] ([facility]) Albumin/Globulin Ratio 0.5 1.2-2.2 Below low normal [facility] Total Protein 6.3 GM/DL 6.4-8.2 Below low normal [facility] ([facility]) Albumin 2.0 GM/DL 3.2-5.2 Below low normal [facility] ( [facility]) ID Date Data Source [id number] 06/02/2020 02:47:00 PM EDT [facility] ([facility]) Name Value Range Interpretation Code Description Data Aby rce(s) Supporting Document(s) White Blood Count 7.8 10 4.0-10.0 Normal (applies to non-numeri c results) [facility] ([facility]) Red Blood Count 2.47 10 4.00-5.40 Below low normal [facility] ([facility]) Hematocrit 25.3 % 36.0-47.0 Below low normal [facility] ( [facility]) Hemoglobin 7.8 g/dL 12.0-15.5 Below low normal [facility] ( [facility]) Mean Corpuscular Hemoglobin 31.6 pg 27.0-33.0 Norm al (applies to non-numeric results) [facility] ([facility]) Mean Corpuscular HGB Conc 30.8 g/dL 32.0-36.5 Below low normal [facility] ([facility]) Mean Corpuscular Volume 102.4 fl 80.0-96.0 Above high normal [facility] ([facility]) Platelet Count, Automated 318 10 150-450 Normal (applies to non-numeric results) [facility] ([facility]) Red Cell Distribution Width 13.4 % 11.5-14.5 Norm al (applies to non-numeric results) [facility] ([facility]) [place] % 6.0 % 0.0-5.0 Above high normal [facility] ([facility]) Neutrophils % 73.7 % 36.0-66.0 Above high normal [facility] ([facility]) Lymph % 19.1 % 24.0-44.0 Below low normal [facility] ( [facility]) Baso % 0.3 % 0.0-1.0 Normal (applies to non-numeric resul ts) [facility] ([facility]) Eos % 0.4 % 0.0-3.0 Normal (applies to non-numeric resul ts) [facility] ([facility]) Immature Granulocyte % 0.5 % 0-3.0 Normal (applies to non-n umeric results) [facility] ([facility]) Lymph # 1.5 10 1.5-5.0 Normal (applies to non-numeric resul ts) [facility] ([facility]) Neutrophils # 5.8 10 1.5-8.5 Normal (applies to non-numeric re sults) [facility] ([facility]) Nucleated Red Blood Cell % 0.0 % 0-0 Normal (applies to n on-numeric results) [facility] ([facility]) [place] # 0.5 10 0.0-0.8 Normal (applies to non-numeric resul ts) [facility] ([facility]) Eos # 0.0 10 0.0-0.5 Normal (applies to non-numeric resul ts) [facility] ([facility]) Baso # 0.0 10 0.0-0.2 Normal (applies to non-numeric resul ts) [facility] ([facility]) ID Date Data Source [id number] 05/24/2020 12:00:00 AM EDT [facility] Name Value Range Interpretation Code Description Data Aby rce(s) Supporting Document(s) [facility] This lab was ordered by [facility] [employer] [facility] and reported by [facility]. ID Date Data Source [id number] 05/16/2020 12:00:00 AM EDT [facility] Name Value Range Interpretation Code Description Data Aby rce(s) Supporting Document(s) SARS coronavirus 2 RNA panel N [facility] This lab was ordered by [facility] [employer] [facility] and reported by [facility]. ID Date Data Source [id number] 04/30/2020 12:00:00 AM EDT [facility] Name Value Range Interpretation Code Description Data Aby rce(s) Supporting Document(s) SARS coronavirus 2 RNA panel N [facility] This lab was ordered by [facility] and reported by [facility]. Procedure Social History No Information Vital Signs ID Date Data Source UNK Name Value Range Interpretation Code Description Data Source(s) Body height 65 [in_i] 65 [in_i] MEDENT ([facility]) 5'5" Respiratory rate 18 /min 18 /min MED[facility] ( [facility]) Systolic blood pressure 124 mm[Hg] 124 mm[Hg] M EDENT ([facility]) Diastolic blood pressure 60 mm[Hg] 60 mm[Hg] MED[facility] ([facility]) Body weight 137.38 [lb_av] 137.38 [lb_av] MEDEN T ([facility]) Body mass index (BMI) [Ratio] 22.9 kg/m2 22.9 k g/m2 [facility] ([facility]) Heart rate 76 /min 76 /min [facility] ([facility]) Body temperature 97.6 [degF] 97.6 [degF] [facility] ([facility]) Oxygen saturation in Arterial blood by Pulse oximetry 99 % 99 % [facility] ([facility]) [place] body weight 125 [lb_av] 125 [lb_av] MEDEN T ([facility]) Patient Treatment Plan of Care Planned Activity Planned Date Details Description Data Source (s) Senna 8.6 MG 06/03/2020 01:00:00 AM EDT N [facility] ([facility]) Lovenox 40 MG/0.4ML 05/30/2020 01:00:00 AM EDT [facility] ([facility]) MiraLax 17 GM 05/28/2020 01:00[facility] oxyCODONE HCl 5 MG 05/28/2020 01:00:00 AM EDT [facility] ([facility]) Ondansetron HCl 4 MG 05/28/2020 01:00:00 AM EDT [facility] ([facility]) Omeprazole 40 MG 05/28/2020 01:00:00 AM [facility] Loperamide HCl 2 MG 05/28/2020 01:00:00 AM EDT [facility] ([facility]) Levothyroxine Sodium 75 MCG 05/28/2020 01:00:00 AM EDT [facility] ([facility]) Gabapentin 100 MG 05/28/2020 01:00:00 AM EDT [facility]) Furosemide 20 MG 05/28/2020 01:00:00 AM EDT [facility] ([facility]) Docusate Sodium 100 MG 05/28/2020 01:00:00 AM EDT [facility]) Diclofenac Sodium 1 % 05/28/2020 01:00:00 AM EDT [facility] ([facility]) Aspirin 325 MG 05/28/2020 01:00:00 AM [facility] Acetaminophen 500 MG 05/28/2020 01:00:00 AM EDT [facility] ([facility]) Pancrelipase (Yfx-Llip-Talg) 00253 UNIT 05/28/2020 01:00:00 AM EDT [facility] ([facility]) Lidocaine-Prilocaine 2.5-2.5 % 05/28/2020 01:00:00 AM [facility] Sucralfate 1 GM 05/28/2020 01:00:00 AM EDT [facility] ([facility]) Spironolactone 25 MG 05/28/2020 01:00:00 AM EDT [facility] ([facility]) Simethicone 180 MG 05/28/2020 01:00:00 AM [facility] Senna 8.6 MG 05/28/2020 01:00:00 AM EDT N [facility] ([facility]) Prochlorperazine Maleate 10 MG 05/28/2020 01:00:00 AM EDT [facility] ([facility])
[2021-06-09] MEDS ORDERED: NS 500 ML IV ONE (21:45)
[2021-06-09] MEDS ORDERED: NS 2,550 ML in IV 1 EA IV ONE (22:05)
[2021-06-09] MEDS ORDERED: MOXIFLOXACIN HCL 400 MG in IV 1 EA IV ONE (22:05)
[2021-06-09] MEDS ORDERED: SENN-80 PO (23:17)
[2021-06-09] MEDS ORDERED: OMEP40CA4 PO (23:17)
[2021-06-09] MEDS ORDERED: SPIR-10 PO (23:17)
[2021-06-09] MEDS ORDERED: ELIQ5TAB PO (23:18)
[2021-06-09] MEDS ORDERED: ATIV1TAB10 PO (23:21)
[2021-06-09] MEDS ORDERED: MED NOTE (23:22)
[2021-06-09] MEDS ORDERED: HOME MED LIST COMPLETE! XX SCH (23:25)
[2021-06-09] MEDS ORDERED: HALOPERIDOL 5MG/ML VIAL (J1630 PER 1) IV ONE (23:30)
[2021-06-09 23:47] LABS: VENOUS BASE EXCESS -5.8 (-2.0-2.0); VENOUS HCO3 17.8 MEQ/L (23.0-27.0); VENOUS O2 SATURATION 94.9 % (60.0-80.0); VENOUS PARTIAL PRESSURE CO2 28.8 mmHg (38.0-50.0); VENOUS PARTIAL PRESSURE O2 79.9 mmHg (30.0-50.0); VENOUS PH 7.408 UNITS (7.330-7.430); VENOUS STANDARD HCO3 19.7 MEQ/L; VENOUS TOTAL CO2 18.6 MEQ/L (24.0-28.0)
[2021-06-10 00:10] LABS: HEMATOCRIT 31.5 % (36.0-47.0); HEMOGLOBIN 10.5 g/dl (12.0-15.5); MEAN CORPUSCULAR HEMOGLOBIN 41.3 pg (27.0-33.0); MEAN CORPUSCULAR HGB CONC 33.3 g/dl (32.0-36.5); RED BLOOD COUNT 2.54 10^6/uL (4.00-5.40); WHITE BLOOD COUNT 3.5 10^3/uL (4.0-10.0)
[2021-06-10 00:27] LABS: OSMOLALITY SERUM 289 MOSM/KG (280-301)
[2021-06-10] MEDS ORDERED: LORazepam 2 MG/ML VIAL IV STA (00:38)
[2021-06-10 00:40] LABS: ALBUMIN 1.9 GM/DL (3.2-5.2); ALT/SGPT 22 U/L (12-78); BILIRUBIN,DIRECT 0.3 MG/DL (0.0-0.2); BILIRUBIN,TOTAL 1.1 MG/DL (0.2-1.0); BLOOD UREA NITROGEN 26 MG/DL (7-18); CALCIUM LEVEL 7.4 MG/DL (8.8-10.2); CARBON DIOXIDE LEVEL 17 MEQ/L (21-32); CHLORIDE LEVEL 112 MEQ/L (98-107); GLOMERULAR FILTRATION RATE > 60.0 (>39); GLUCOSE, FASTING 83 MG/DL (70-100); POTASSIUM SERUM 4.5 MEQ/L (3.5-5.1); SODIUM LEVEL 139 MEQ/L (136-145); TOTAL PROTEIN 5.1 GM/DL (6.4-8.2)
[2021-06-10 00:51] LABS: PLATELET COUNT, AUTOMATED 36 10^3/uL (150-450)
[2021-06-10 00:58] LABS: LYMPHOCYTES 24 % (16-44); MONOCYTES 5 % (0-5); NEUTROPHILS 71 % (28-66)
[2021-06-10 00:59] LABS: ANISOCYTOSIS 1+; PLATELET ESTIMATE MARKED DECREASE (NORMAL)
[2021-06-10 01:00] LABS: BURR CELLS 1+; OVALOCYTES 1+; TARGET CELLS 1+
--- NOTE | 2021-06-10 01:06 | REPVR ---
PROCEDURE INFORMATION: Exam: XR Chest Exam date and time: 06/10/2021 12:39 AM Age: 71 years old Clinical indication: Other: AMS; Additional info: Altered mental status TECHNIQUE: Imaging protocol: XR of the chest. Views: 1 view. COMPARISON: CT Chest with contrast 12/21/2020 6:12 PM FINDINGS: Tubes, catheters and devices: A right Port-A-Cath remains in position. Lungs: There is decreased inflation of the lungs. Slight vascular crowding with no interval infiltrates. Pleural spaces: Unremarkable. No pleural effusion. No pneumothorax. Heart/Mediastinum: Unremarkable. No cardiomegaly. Diaphragm: Mild elevation of the right hemidiaphragm is again noted. Bones/joints: Unremarkable. IMPRESSION: Essentially stable poor inspiratory chest since 09/09/2020. Electronically signed by: Miguel Angel Ramirez On 06/10/2021 01:05:37 AM
--- NOTE | 2021-06-10 01:27 | REPVR ---
PROCEDURE INFORMATION: Exam: CT Head Without Contrast Exam date and time: 06/10/2021 1:11 AM Age: 71 years old Clinical indication: Altered mental status/memory loss TECHNIQUE: Imaging protocol: Computed tomography of the head without contrast. Radiation optimization: All CT scans at this facility use at least one of these dose optimization techniques: automated exposure control; mA and/or kV adjustment per patient size (includes targeted exams where dose is matched to clinical indication); or iterative reconstruction. COMPARISON: No relevant prior studies available. FINDINGS: Brain: Trace subdural hematoma is noted along the frontal and frontoparietal falx measuring 2 mm in thickness. Minimal subarachnoid blood is noted in the right paramedian frontoparietal region. The song and white matter is within normal limits. There is slight prominence of the peripheral sulci. Cerebral ventricles: No ventriculomegaly. Paranasal sinuses: Visualized sinuses are unremarkable. No fluid levels. Mastoid air cells: Visualized mastoid air cells are well aerated. Bones/joints: Hyperostosis frontalis interna is noted. Soft tissues: Unremarkable. IMPRESSION: 1. Trace falx subdural hematoma is noted in the frontal and frontoparietal region measuring 2 mm. 2. Minimal subarachnoid hemorrhage is noted in the paramedian right frontoparietal region. 3. Minimal atrophic change. 4. Otherwise negative noncontrast head CT. Electronically signed by: Miguel Angel Ramirez On 06/10/2021 01:27:05 AM
[2021-06-10 02:35] LABS: INR 1.69; PROTHROMBIN TIME 20.3 SECONDS (12.7-14.5)
[2021-06-10 02:36] LABS: PARTIAL THROMBOPLASTIN TIME 30.3 SECONDS (25.9-37.0)
--- NOTE | 2021-06-10 03:11 | REPVR ---
PROCEDURE INFORMATION: Exam: CT Chest Without Contrast; Diagnostic Exam date and time: 06/10/2021 2:55 AM Age: 71 years old Clinical indication: Injury or trauma; Fall; Blunt trauma (contusions or hematomas); Additional info: Fall, intracranial bleed TECHNIQUE: Imaging protocol: Diagnostic computed tomography of the chest without contrast. Radiation optimization: All CT scans at this facility use at least one of these dose optimization techniques: automated exposure control; mA and/or kV adjustment per patient size (includes targeted exams where dose is matched to clinical indication); or iterative reconstruction. COMPARISON: CT Chest with contrast 12/21/2020 6:12 PM FINDINGS: Tubes, catheters and devices: Right Port-A-Cath through the internal jugular extending into the right atrium. Lungs: Coarse pulmonary interstitium with mild bibasilar fibro-atelectatic change. Pleural spaces: Unremarkable. No pneumothorax. No pleural effusion. Heart: Trace pericardial fluid. Pulmonary arteries: The main pulmonary artery measures 30 mm. Aorta: The ascending thoracic aorta measures 32 mm. Lymph nodes: Unremarkable. No enlarged lymph nodes. Liver: Small slightly nodular liver. Recanalization of ligamentum teres measuring 7 mm in diameter consistent with portal venous collateralization. Spleen: The spleen measures 12.2 cm.. Intraperitoneal space: Large volume peritoneal ascites with coarse infiltration of omentum. Bones/joints: Unremarkable. No acute fracture. Soft tissues: Subcutaneous edema of the anterior abdominal wall. IMPRESSION: 1. Evidence of hepatic cirrhosis with splenomegaly, portal venous collateralization and large volume peritoneal ascites. 2. Trace pericardial fluid. 3. Right Port-A-Cath extending into the right atrium. 4. Coarse pulmonary interstitium with mild bibasilar fibro-atelectatic change. 5. Otherwise negative CT chest. No acute posttraumatic change is seen. Electronically signed by: Miguel Angel Ramirez On 06/10/2021 03:10:41 AM
--- NOTE | 2021-06-10 03:19 | REPVR ---
PROCEDURE INFORMATION: Exam: CT Abdomen And Pelvis Without Contrast Exam date and time: 06/10/2021 2:55 AM Age: 71 years old Clinical indication: Injury or trauma; Fall; Blunt; Generalized; Additional info: Fall, intracranial bleed TECHNIQUE: Imaging protocol: Computed tomography of the abdomen and pelvis without contrast. Radiation optimization: All CT scans at this facility use at least one of these dose optimization techniques: automated exposure control; mA and/or kV adjustment per patient size (includes targeted exams where dose is matched to clinical indication); or iterative reconstruction. COMPARISON: CT ABD PELVIS WITH CONTRAST 12/21/2020 6:12 PM FINDINGS: Diaphragm: Elevation of the right hemidiaphragm. Liver: Small liver with slightly nodular surface. Gallbladder and bile ducts: Status post cholecystectomy. Pancreas: Surgical clips about the pancreatic head which may reflect prior Whipple procedure. Spleen: The spleen measures 12.1 cm. Adrenal glands: Normal. No mass. Kidneys and ureters: Normal. No hydronephrosis. Stomach and bowel: Partial gastrectomy with gastrojejunostomy. Appendix: Probable retrocecal appendix. Intraperitoneal space: Large volume peritoneal ascites. Vasculature: There is moderate atherosclerotic calcification of the abdominal aorta with extension into the iliac arteries. Lymph nodes: Unremarkable. No enlarged lymph nodes. Urinary bladder: Unremarkable as visualized. Reproductive: Status post hysterectomy. Bones/joints: Unremarkable. No acute fracture. Soft tissues: Fluid-filled left lower pelvic ventral wall hernia. Other findings: Mild relaxation of the pelvic floor. IMPRESSION: 1. Hepatic cirrhosis with mild splenomegaly and large volume peritoneal ascites. 2. Distal gastrectomy with gastrojejunostomy and surgical clips about the pancreatic head suggesting previous Whipple procedure. 3. There has been prior cholecystectomy and hysterectomy. 4. Fluid filled left pelvic ventral wall hernia which is unchanged from 12/21/2020. 5. Mild relaxation of the pelvic floor. 6. Otherwise negative CT abdomen/pelvis. No acute posttraumatic change is seen. Electronically signed by: Miguel Angel Ramirez On 06/10/2021 03:18:55 AM
[2021-06-10 03:24] VITALS: BP 119/66
== END 2021-06-10 03:29 | disposition short-term general hospital (02) ==
LOC: M ED 21:09
DX: I60.9 Nontraumatic subarachnoid hemorrhage, unspecified (principal); I62.00 Nontraumatic subdural hemorrhage, unspecified; C25.0 Malignant neoplasm of head of pancreas; I70.0 Atherosclerosis of aorta; Z90.49 Acquired absence of other specified parts of digestive tract; Z90.710 Acquired absence of both cervix and uterus; Z90.3 Acquired absence of stomach [part of]; K43.9 Ventral hernia without obstruction or gangrene; Z86.718 Personal history of other venous thrombosis and embolism
CPT/HCPCS: 70450; 71045; 71250; 74176; 80048; 80076; 82140; 82803; 83605; 83930; 84443; 85025; 85049; 85055; 85610; 85730; 87040; 87798; 93041; 94760; 96365; 96366; 96375; 99285; J1630; J2060; J2280

== ENCOUNTER → 2021-06-16 | Outpatient (CLI) | payer MEDICARE, OTHER ==
[~2021-06-16] MED LIST changes: +MED NOTE; +SENN-80 PO
[2021-06-16 14:27] VITALS: BP 114/62
--- NOTE | 2021-06-16 17:20 | REP ---
INDICATION: ASCITES. COMPARISON: None. TECHNIQUE: The procedure was performed under the direct supervision of Dr. Cervantes. The risks and benefits of the procedure were explained to the patient and informed consent was obtained. The largest pocket of fluid was localized in the left flank using ultrasound guidance. The skin was prepped and draped in a sterile fashion. 5 mL of 1% lidocaine was used as a local anesthetic. An 8-Monegasque multi side-hole catheter was inserted using trocar technique.4150 mL of yellow fluid was withdrawn and discarded. Estimated blood loss: Less than 1 mL The patient tolerated the procedure well and there were no immediate complications. After the appropriate amount of monitored convalescence, the patient was discharged from the department. FINDINGS: None IMPRESSION: Ultrasound-guided paracentesis [id number] mL of yellow fluid. <Electronically signed by Cesar Jones > 06/16/21 1524 <Electronically signed by Justin Cervantes > 06/16/21 [id number]
== END ==
LOC: M IRPRO 13:23
PROVIDERS: ATTEND Specialist
DX: R18.8 Other ascites (principal)

== ENCOUNTER → 2021-07-04 | Outpatient (CLI) | payer MEDICARE, OTHER ==
[~2021-07-04] MED LIST changes: +LIDOCAINE 1% MDV 20ML VIAL As Ordered ONE; +SODIUM BICARBONATE 8.4% INJ 50MEQ 50 ML VIAL As Ordered ONE
[2021-07-04 13:38] VITALS: BP 113/63
--- NOTE | 2021-07-04 18:23 | REP ---
INDICATION: ASCITES The patient has a history of ascites COMPARISON: None. TECHNIQUE: The procedure was performed by MARYCHUY Jackman, under the direct supervision of Dr. Cervantes The risks and benefits of the procedure were explained to the patient and an informed consent was obtained both verbally and written. Directly prior to the start of the procedure a formal time-out was completed in the procedure room. The largest pocket of fluid was localized in the right flank using ultrasound guidance. The skin was prepped and draped in a sterile fashion. Ten ML of buffered lidocaine was used as a local anesthetic. An 8-Sami multi side-hole catheter was inserted using trocar technique. FINDINGS: 7050 mL of clear yellow fluid were removed. The patient tolerated the procedure well and there were no immediate complications. After the appropriate amount of monitored convalescence, the patient was discharged from the department. IMPRESSION: Technically successful paracentesis yielding 7050 mL of clear yellow fluid. <Electronically signed by Leighann Ewing > 07/04/21 1433 <Electronically signed by Justin Cervantes > 07/04/21 [id number]
== END ==
LOC: M IRPRO 12:24
PROVIDERS: ATTEND Specialist
DX: R18.8 Other ascites (principal)

== ENCOUNTER → 2021-07-11 | Outpatient (CLI) | payer MEDICARE, OTHER ==
[~2021-07-11] MED LIST changes: +CEFD300CAP PO; +CEPH500T PO; +LACT20EL PO; +LEVO88TA3 PO; -LIDOCAINE 1% MDV 20ML VIAL As Ordered ONE; +MED REC COMMENT; +OMEP-173 PO; -OMEP-218 PO; -OMEP-221 PO; +OMEP40CA5 PO; +POTA-151 PO; -POTA20TA6 PO; -PROC10TA4 PO; +PROC10TA5 PO; +SIME80TA16 PO; -SIME80TA5 PO; -SODIUM BICARBONATE 8.4% INJ 50MEQ 50 ML VIAL As Ordered ONE; +SYNT112T2 PO
[2021-07-11 13:25] VITALS: BP 133/63
== END ==
LOC: M IRPRO 12:32
PROVIDERS: ATTEND Specialist
DX: R18.8 Other ascites (principal)

== ENCOUNTER → 2021-07-25 | Outpatient (CLI) | payer MEDICARE, OTHER ==
[2021-07-25 13:45] VITALS: BP 120/61
== END ==
LOC: M IRPRO 12:48
PROVIDERS: ATTEND Specialist
DX: R18.8 Other ascites (principal)

== ENCOUNTER → 2021-08-01 | Outpatient (CLI) | payer MEDICARE, OTHER ==
[~2021-08-01] MED LIST changes: -CEFD300CAP PO; -CEPH500T PO; -LACT20EL PO; -LEVO88TA3 PO; -MED REC COMMENT; -OMEP-173 PO; +OMEP-218 PO; +OMEP-221 PO; -OMEP40CA5 PO; -POTA-151 PO; +POTA20TA6 PO; +PROC10TA4 PO; -PROC10TA5 PO; -SIME80TA16 PO; +SIME80TA5 PO; +SODIUM BICARBONATE 8.4% INJ 50MEQ 50 ML VIAL As Ordered ONE; -SYNT112T2 PO
[2021-08-01 15:20] VITALS: BP 150/76
--- NOTE | 2021-08-01 17:36 | REP ---
INDICATION: ASCITES The patient has a history of ascites COMPARISON: None. TECHNIQUE: The procedure was performed by MARYCHUY Jackman, under the direct supervision of Dr. Cervantes The risks and benefits of the procedure were explained to the patient and an informed consent was obtained both verbally and written. Directly prior to the start of the procedure a formal time-out was completed in the procedure room. The largest pocket of fluid was localized in the left flank using ultrasound guidance. The skin was prepped and draped in a sterile fashion. Ten ML of buffered lidocaine was used as a local anesthetic. An 8-Romansh multi side-hole catheter was inserted using trocar technique. FINDINGS: The largest pocket of fluid was localized in the left flank using ultrasound guidance. The skin was prepped and draped in sterile fashion. 10 mL of buffered lidocaine was utilized for local anesthetic. An 8 Romansh multi side hole catheter was inserted using trocar technique. 4900 mL of yellow fluid was aspirated. The catheter was removed and a sterile dressing was applied to the incision site. The patient tolerated the procedure well and there were no immediate complications. After the appropriate amount of monitored convalescence, the patient was discharged from the department. IMPRESSION: Technically successful paracentesis yielding 4900 mL of yellow fluid. <Electronically signed by Leighann Ewing > 08/01/21 1559 <Electronically signed by Justin Cervantes > 08/01/21 [id number]
== END ==
LOC: M IRPRO 14:14
PROVIDERS: ATTEND Specialist
DX: R18.8 Other ascites (principal)

== ENCOUNTER 2021-08-05 18:49 | Inpatient (IN) | payer MEDICARE, OTHER ==
[~2021-08-05 18:49] MED LIST changes: -SODIUM BICARBONATE 8.4% INJ 50MEQ 50 ML VIAL As Ordered ONE
--- NOTE | 2021-08-05 20:36 | REPVR ---
PROCEDURE INFORMATION: Exam: CT Head Without Contrast Exam date and time: 08/05/2021 7:57 PM Age: 71 years old Clinical indication: Altered mental status/memory loss; Confusion or disorientation TECHNIQUE: Imaging protocol: Computed tomography of the head without contrast. Radiation optimization: All CT scans at this facility use at least one of these dose optimization techniques: automated exposure control; mA and/or kV adjustment per patient size (includes targeted exams where dose is matched to clinical indication); or iterative reconstruction. COMPARISON: CT Head without contrast 06/09/2021 9:56 PM FINDINGS: Brain: No intracranial mass, mass effect or midline shift. No acute intracranial hemorrhage. No CT evidence of acute cortical infarct. Ventricles, cisterns, and sulci are normal in size for age. Paranasal sinuses: Imaged paranasal sinuses are normally aerated. Mastoid air cells: Mastoid air cells and middle ear structures are normally aerated. Orbital cavity: Imaged orbits are unremarkable. Bones/joints: No calvarial fracture or destructive process. Soft tissues: No focal extracranial soft tissue swelling. IMPRESSION: No acute or concerning focal intracranial abnormality. Electronically signed by: Zhao Jhaveri On 08/05/2021 20:35:46 PM
[2021-08-05 21:22] LABS: HEMATOCRIT 36.9 % (36.0-47.0); HEMOGLOBIN 12.2 g/dl (12.0-15.5); MEAN CORPUSCULAR HEMOGLOBIN 36.6 pg (27.0-33.0); MEAN CORPUSCULAR HGB CONC 33.1 g/dl (32.0-36.5); MEAN CORPUSCULAR VOLUME 110.8 fl (80.0-96.0); PLATELET COUNT, AUTOMATED 103 10^3/uL (150-450); RED BLOOD COUNT 3.33 10^6/uL (4.00-5.40); WHITE BLOOD COUNT 3.4 10^3/uL (4.0-10.0)
--- NOTE | 2021-08-05 21:23 | REPVR ---
PROCEDURE INFORMATION: Exam: XR Chest Exam date and time: 08/05/2021 9:05 PM Age: 71 years old Clinical indication: Other: Altered mental status TECHNIQUE: Imaging protocol: XR of the chest. Views: 1 view. COMPARISON: CT Chest without contrast 06/10/2021 2:32 AM FINDINGS: Tubes, catheters and devices: Tunneled right IJ vascular catheter extends to the cavoatrial junction Lungs: Degree of lung inflation is normal. No evidence of pulmonary edema. No focal consolidation or parenchymal lung mass. Pleural spaces: No pleural effusion or pneumothorax. Heart/Mediastinum: Cardiac silhouette appears normal. No adenopathy or hilar mass. Bones/joints: Osseous structures show no concerning abnormality. IMPRESSION: No acute or focal cardiopulmonary process. Electronically signed by: Zhao Jhaveri On 08/05/2021 21:22:58 PM
--- NOTE | 2021-08-05 21:24 | REPVR ---
PROCEDURE INFORMATION: Exam: US Abdomen Limited, FAST Exam date and time: 08/05/2021 9:11 PM Age: 71 years old Clinical indication: Screening exam; Other: Acites; Additional info: Evaluate for ascites TECHNIQUE: Imaging protocol: Real-time ultrasound of the abdomen with image documentation. FAST protocol (Focused Assessment with Sonography for Trauma). COMPARISON: Abdomen, limited US 09/14/2020 3:00 PM FINDINGS: Intraperitoneal space: Large volume of free fluid is seen in all quadrants of the abdomen. IMPRESSION: Large volume of free fluid in all quadrants of the abdomen Electronically signed by: Zhao Jhaveri On 08/05/2021 21:24:16 PM
[2021-08-05 21:33] LABS: INR 1.24; PROTHROMBIN TIME 16.1 SECONDS (12.7-14.5)
[2021-08-05 21:48] LABS: EOSINOPHILS 1 % (0-3); LYMPHOCYTES 15 % (16-44); MONOCYTES 6 % (0-5); NEUTROPHILS 78 % (28-66); PLATELET ESTIMATE NORMAL (NORMAL)
[2021-08-05 21:53] LABS: OVALOCYTES 1+; SCHISTOCYTES 1+
[2021-08-05 21:54] LABS: CK-MB VALUE MASS 2.5 NG/ML (<3.6); MB/CK RELATIVE INDEX 1.92 (< OR =4); TEAR DROP CELLS 1+
[2021-08-05 21:55] LABS: ACETAMINOPHEN LEVEL 7.7 UG/ML (10.0-30.0); ALBUMIN 2.4 GM/DL (3.2-5.2); ALT/SGPT 14 U/L (12-78); BILIRUBIN,DIRECT 0.3 MG/DL (0.0-0.2); BLOOD UREA NITROGEN 24 MG/DL (7-18); CALCIUM LEVEL 7.9 MG/DL (8.8-10.2); CARBON DIOXIDE LEVEL 22 MEQ/L (21-32); CHLORIDE LEVEL 110 MEQ/L (98-107); ETHYL ALCOHOL (ETHANOL) < 0.003 % (0.000-0.010); GLOMERULAR FILTRATION RATE > 60.0 (>39); GLUCOSE, FASTING 80 MG/DL (70-100); MAGNESIUM LEVEL 1.9 MG/DL (1.8-2.4); POTASSIUM SERUM 5.4 MEQ/L (3.5-5.1); SALICYLATE LEVEL < 1.7 MG/DL (5.0-30.0); SODIUM LEVEL 140 MEQ/L (136-145); TOTAL PROTEIN 5.7 GM/DL (6.4-8.2)
[2021-08-05 22:02] LABS: RSV AMPLIFICATION NEGATIVE (NEGATIVE)
[2021-08-05] MEDS ORDERED: NS 1,000 ML IV ONE (22:05)
[2021-08-05] MEDS ORDERED: LEVO88TA3 PO (22:33)
[2021-08-05] MEDS ORDERED: LISI30TA4 PO (22:33)
[2021-08-05] MEDS ORDERED: HOME MED LIST COMPLETE! XX SCH (22:40)
[2021-08-05] MEDS ORDERED: MED REC COMMENT (22:40)
[2021-08-05 23:13] LABS: AMPHETAMINES LEVEL URINE NEGATIVE (NEGATIVE); BARBITURATES URINE NEGATIVE (NEGATIVE); BENZODIAZEPINES URINE NEGATIVE (NEGATIVE); CANNABINOIDS URINE NEGATIVE (NEGATIVE); COCAINE METABOLITE URINE NEGATIVE (NEGATIVE); METHADONE URINE NEGATIVE (NEGATIVE); OPIATES URINE POSITIVE (NEGATIVE); PHENCYCLIDINE URINE NEGATIVE (NEGATIVE)
[2021-08-05] MEDS ORDERED: LACTULOSE 20 GM/30 ML SYRUP UD PO ONE (23:50)
[2021-08-05] MEDS ORDERED: GLUCAGON INJ 1MG VIAL SC PRN (23:50)
[2021-08-05] MEDS ORDERED: GLUCOSE 4GM CHEW TABLET PO PRN (23:50)
[2021-08-05] MEDS ORDERED: DEXTROSE 50% 50 ML SYRINGE IV PRN (23:50)
[2021-08-06] MEDS: NS 1,000 ML IV SCH ×2 (00:15→16:35)
--- NOTE | 2021-08-06 00:23 | HPEPDOC ---
[facility] Medical History & Physical Date of Admission Aug 05, 2021 Date of Service: Aug 05, 2021 Attending Physician: Keenan Hurtado History and Physical CHIEF COMPLAINT: [71 y/o female presents via ems for altered mental status] HISTORY OF PRESENT ILLNESS: [This is a 71 y/o female with a pmh of pancreatic ca s/p whipple procedure currently undergoing chemo, idiopathic liver cirrhosis with recurrent ascites undergoing weekly paracentesis, sah, cad, htn, hld, hypothyroidism who was brought to our ED on 08/05 via ambulance for evaluation of altered mental status. Patient is acutely altered and not able to provide me with any history, so this is obtained via the chart and ED staff. Patient is onl y able to answer very simple questions for me. She tells me she is experiencing some abdominal pain, but is not able to describe it. Patient voices no other complaints. Apparently, patient had EMS called on her by her neighbor when they observed her to be acutely altered and hallucinating. ED provider attempted to reach out to family and were able to get a hold of patient's son. Unfortunately, they were notified patient's earlier in the day. The son was unable to provide the ED staff with any history about the patient, and is unsure of any medications she takes or when she takes them. The son was not with the patient at the time of ems being called or at the hospital with patient. According to ED staff, son did not want to be called back in the night, so no attempts were made by myself to reach out at this time. Workup performed in the ED notable for significant hyperammonemia of 152, hyperkalemia fo 5.4, slight lactic acidosis of 2.2 and large volume ascites on p hysical exam. Patient also found to be influenza A +.] PAST MEDICAL HISTORY: 1. [See HPI PAST SURGICAL HISTORY: 1. [Whipple procedure]. 2. [Many paracentesis]. 3. [Infusaport placement 4. Hysterectomy 5. D&C 6. Cystoscopy with stone removal 7. Colonoscopy]. SOCIAL HISTORY: Patient lives at home with her son. Her on 08/05/21. Tobacco use:[Per chart, patient is former smoker] ETOH: [Per chart, patient apparently has some history of alcohol use] FAMILY HISTORY: Reviewed - non contributory ALLERGIES: Please see below. REVIEW OF SYSTEMS: Unable to obtain accurate review of systems d/t mentation HOME MEDICATIONS: Please see below. PHYSICAL EXAMINATION: VITAL SIGNS: Please see below. GENERAL APPEARANCE: [This is a 71 y/o female laying on ED stretcher. She is alert and able to answer simple questions however is not oriented. Patient does not appear to be in any acute distress]. HEENT: [No mass or lesion. EOMI. No scleral icterus. Nares patent. Oral mucosa moist]. CARDIOVASCULAR: [Regular rate, rhythm. No murmurs, rubs, gallops]. LUNGS: [Good air flow b/l. No wheezing, rales, rhonchi]. ABDOMEN: [Grossly distended. Mildly tender to palpation]. MUSCULOSKELETAL: [No joint deformity noted]. EXTREMITIES: [Lower extremities grossly edematous b/l. The lower extremities have a dusky appearance that is consistent with chronic venous stasis. Pulses weak]. NEUROLOGICAL: [Speech clear. Neuro exam difficult to perform d/t mentation]. PSYCHIATRIC: [Patient is confused]. LABORATORY DATA: See below. IMAGING: [Head CT: FINDINGS: Brain: No intracranial mass, mass effect or midline shift. No acute intracranial hemorrhage. No CT evidence of acute cortical infarct. Ventricles, cisterns, and sulci are normal in size for age. Paranasal sinuses: Imaged paranasal sinuses are normally aerated. Mastoid air cells: Mastoid air cells and middle ear structures are normally aerated. Orbital cavity: Imaged orbits are unremarkable. Bones/joints: No calvarial fracture or destructive process. Soft tissues: No focal extracranial soft tissue swelling. IMPRESSION: No acute or concerning focal intracranial abnormality. Abdominal US: FINDINGS: Intraperitoneal space: Large volume of free fluid is seen in all quadrants of the abdomen. IMPRESSION: Large volume of free fluid in all quadrants of the abdomen CXR: FINDINGS: Tubes, catheters and devices: Tunneled right IJ vascular catheter extends to the cavoatrial junction Lungs: Degree of lung inflation is normal. No evidence of pulmonary edema. No focal consolidation or parenchymal lung mass. Pleural spaces: No pleural effusion or pneumothorax. Heart/Mediastinum: Cardiac silhouette appears normal. No adenopathy or hilar mass. Bones/joints: Osseous structures show no concerning abnormality. IMPRESSION: No acute or focal cardiopulmonary process. ] MICROBIOLOGY: Please see below. ASSESSMENT: [This is a 71 y/o female with a pmh of pancreatic ca s/p whipple procedure currently undergoing chemo, idiopathic liver cirrhosis with recurrent ascites undergoing weekly paracentesis, sah, cad, htn, hld, hypothyroidism who was brought to our ED on 08/05 via ambulance for evaluation of altered mental status. Apparently, patient had EMS called on her by her neighbor when they observed her to be acutely altered and hallucinating. It was found out that patient's passed earlier in the day. The son so far has been an unreliable contact for information regarding the patient. Workup performed in the ED notable for significant hyperammonemia of 152, hyperkalemia fo 5.4, slight lactic acidosis of 2.2 and large volume ascites on physical exam. Patient also found to be influenza A +.]. . PLAN: 1. [Hepatic Encephalopathy - Unclear etiology. Potentially d/t flu A infection or UTI. Cannot r/o SBP - Paracentesis ordered for AM - Will hold patient's eliquis at this time. It is not possible to ascertain at this time when patient's last dose of eliquis was. - No sirs criteria at this time - will hold off on abx - Begin rifaximin, lactulose qid and titrate to 3-4 bm's per day - Will repeat ammonia in the am - NPO except for meds d/t ams - q6 fingersticks and hypoglycemic protocol while npo - Neuro checks q4 for now d/t ams - Continuous pulse ox monitoring - Admit to pcu for tx 2. Hyperkalemia - Most likely d/t dehydration - Will place pt on tele for now - IVF 3. LE edema - will order LE duplex to r/o dvt as patient has a hx of this and it is unknown if pt has been compliant with her eliquis at this time 4. Lactic acidosis - potentially d/t dehydration - pt received iv bolus in the ed and will be receiving ivf - monitor 5. Asymptomatic bacteruria - Patient noted to have trace leuk est, 2+ bacteria, 7 wbc in her ua - With lack of sirs criteria, will opt not to treat at this time and monitor 6. Influenza A - supportive care - contact precautions 7. HTN - continue lisinopril 8. GERD - continue omeprazole 9. Hypothyroidism - continue synthroid 10. Pancreatic ca - patient follows with [facility] - holding patients percocet for now d/t ams DVT prophylaxis - mechanical until paracentesis has been performed Code Status - discussion cannot be had with patient at this time d/t ams. hopefully patient will be more alert in the coming days and will be able to discuss goals of care with her poor prognosis d/t her many comorbid conditions LATE ADDENDUM: Lower extremity ultrasound results notable for b/l dvt's appearing occlusive, report will be copied in below. Doppler examination of lower extremities was performed at this time which again found b/l pedal pulses palpable. At this time, I personally called and spoke with Dr. Miguel, vascular surgery, who feels as though it is likely that these clots may be chronic in nature and recommends restarting anticoagulation. Dr. Miguel states that it would be reasonable to restart patient's eliquis. However, in light of patient acutely needing paracentesis, we will opt to start heparin drip at this time FINDINGS: Right deep veins: Abnormal occlusive intraluminal filling defect from the common femoral vein through the femoral vein, popliteal vein and into the posterior tibial and peroneal veins Right superficial veins: Saphenofemoral junction is patent without thrombus. Left deep veins: Abnormal intraluminal filling defect from the common femoral vein through the popliteal vein. The saphenofemoral junction and proximal saphenous vein also appears thrombosed Soft tissues: No abnormal focal fluid collection. IMPRESSION: Bilateral deep vein thrombosis appearing occlusive, right lower extremity from the common femoral into the calf with sparing of the saphenofemoral junction. On the left, common femoral to popliteal, also involving the greater saphenous]. Vital Signs Vital Signs Date Time Temp Pulse Resp B/P (MAP) Pulse Ox O2 Delivery O2 Flow Rate FiO2 08/05/21 23:34 90 99 08/05/21 23:30 140/62 (88) 08/05/21 23:04 Room Air 08/05/21 19:00 98.9 18 Laboratory Data Labs 24H Laboratory Tests 2 08/05/21 21:02: Neutrophils (%) (Auto) , Nucleated Red Blood Cells % (auto) 0.0, Neutrophils 78H, Lymphocytes (Manual) 15L, Monocytes (Manual) 6H, Eosinophils (Manual) 1, Macrocytosis 1+, Schistocytes 1+, Tear Drop Cells 1+, Ovalocytes 1+, Platelet Estimate NORMAL, Prothrombin Time 16.1H, Prothromb Time International Ratio 1.24, Anion Gap 8, Glomerular Filtration Rate > 60.0, Lactic Acid Level 2.2*H, Calcium Level 7.9L, Magnesium Level 1.9, Total Bilirubin 1.0, Direct Bilirubin 0.3H, Aspartate Amino Transf (AST/SGOT) 39H, Alanine Aminotransferase (ALT/SGPT) 14, Alkaline Phosphatase 160H, Ammonia 152H, Total Creatine Kinase 130, Creatine Kinase MB 2.5, Creatine Kinase MB Relative Index 1.92, Troponin I High Sensitivity 13.0, Total Protein 5.7L, Albumin 2.4L, Albumin/Globulin Ratio 0.7L, Thyroid Stimulating Hormone (TSH) 90.400H, Salicylates Level < 1.7L, Urine Opiates Screen POSITIVEH, Urine Methadone Screen NEGATIVE, Acetaminophen Level 7.7L, Urine Barbiturates Screen NEGATIVE, Urine Phencyclidine Screen NEGATIVE, Urine Amphetamines Screen NEGATIVE, Urine Benzodiazepines Screen NEGATIVE, Urine Cocaine Metabolite Screen NEGATIVE, Urine Cannabinoids Screen NEGATIVE, Ethyl Alcohol Level < 0.003 08/05/21 21:06: Coronavirus (COVID-19)(PCR) NEGATIVE, Influenza Type A (RT-PCR) POSITIVEH, Influenza Type B (RT-PCR) NEGATIVE, Respiratory Syncytial Virus (PCR) NEGATIVE 08/05/21 22:40: Urine Color YELLOW, Urine Appearance CLEAR, Urine pH 5.0, Urine Specific [place] 1.020, Urine Protein NEGATIVE, Urine Glucose (UA) NEGATIVE, Urine Ketones NEGATIVE, Urine Blood NEGATIVE, Urine Nitrite NEGATIVE, Urine Bilirubin NEGATIVE, Urine Urobilinogen 2.0H, Urine Leukocyte Esterase TRACEH, Urine WBC (Auto) 7H, Urine RBC (Auto) 2, Urine Hyaline Casts (Auto) 3, Urine Bacteria (Auto) 2+H, Urine Squamous Epithelial Cells 0, Urine Mucus (Auto) SMALL, Urine Sperm (Auto) CBC/BMP Laboratory Tests 08/05/21 21:02 Microbiology Microbiology 08/05/21 Urine Culture, Received Pending 08/05/21 Blood Culture, Received Pending 08/05/21 Blood Culture, Received Pending Home Medications Scheduled Apixaban (Eliquis) 5 Mg Tablet, 5 MG PO BID Levothyroxine Sodium (Levothyroxine Sodium) 88 Mcg Tablet, 88 MCG PO DAILY Lisinopril (Lisinopril) 30 Mg Tablet, 30 MG PO DAILY Omeprazole (Omeprazole) 40 Mg Capsule.dr, 40 MG PO BID Scheduled PRN Hydrocodone/Acetaminophen (Hydrocodone-Acetamin 10-325 mg) 1 Each Tablet, 1 TAB PO Q6H PRN for PAIN Lorazepam (Ativan) 0.5 Mg Tablet, 0.5 MG PO BID PRN for ANXIETY/AGITATION Sennosides (Senna) 8.6 Mg Tablet, 8.6 MG PO DAILY PRN for CONSTIPATION Miscellaneous Medications [Med Rec Comment] UNABLE TO VERIFY WITH PT. USED EXTERNAL MED HISTORY Allergies Coded Allergies: No Known Allergies (Unverified , 08/29/19) A-FIB/CHADSVASC A-FIB History Current/History of A-Fib/PAF?: No Current PO Anticoag Therapy: No CHATO GARCIA Aug 06, 2021 00:23
[2021-08-06] MEDS ORDERED: SENNA 8.6 MG TAB (SENOKOT) PO PRN (00:25)
[2021-08-06] MEDS ORDERED: LORazepam 0.5 MG TAB PO PRN (00:25)
--- NOTE | 2021-08-06 01:16 | REPVR ---
PROCEDURE INFORMATION: Exam: US Duplex Lower Extremity Veins, Bilateral Exam date and time: 08/06/2021 12:41 AM Age: 71 years old Clinical indication: Edema, localized; Lower extremity, bilateral; Additional info: Ascites TECHNIQUE: Imaging protocol: Real-time duplex ultrasound of the extremities with 2-D song scale, color Doppler flow and spectral waveform analysis with image documentation. Complete exam focused on the bilateral lower extremity veins. COMPARISON: US PV-Gage 09/10/2020 6:26 AM FINDINGS: Right deep veins: Abnormal occlusive intraluminal filling defect from the common femoral vein through the femoral vein, popliteal vein and into the posterior tibial and peroneal veins Right superficial veins: Saphenofemoral junction is patent without thrombus. Left deep veins: Abnormal intraluminal filling defect from the common femoral vein through the popliteal vein. The saphenofemoral junction and proximal saphenous vein also appears thrombosed Soft tissues: No abnormal focal fluid collection. IMPRESSION: Bilateral deep vein thrombosis appearing occlusive, right lower extremity from the common femoral into the calf with sparing of the saphenofemoral junction. On the left, common femoral to popliteal, also involving the greater saphenous Electronically signed by: Zhao Jhaveri On 08/06/2021 01:16:03 AM
[2021-08-06] MEDS ORDERED: HEPARIN SOD (PORCINE) 5000UNITS/ML 1ML VIAL/SYRINGE IV PRN (01:50)
[2021-08-06] MEDS ORDERED: HEPARIN SOD (PORCINE) 5000UNITS/ML 1ML VIAL/SYRINGE IV ONE (01:50)
[2021-08-06] MEDS: HEPARIN DRIP 25,000 UNITS in IV 1 EA IV SCH ×3 (02:45→18:38)
[2021-08-06 04:00] VITALS: BP 151/65
[2021-08-06] MEDS ORDERED: LEVOTHYROXINE 88MCG TABLET (0.088 MG) PO SCH (06:00)
--- NOTE | 2021-08-06 06:28 | ECGEPIP ---
[facility] - ED Test Date: 2021-08-05 Pat Name: CINDI VALDIVIA Department: Room: - Gender: Female [employer] Vendor: jaylyn dumont : 1950 Requested By: Rebecca Peters PA-C Order Number: [id number] Reading MD: Mitul Garcia Measurements Intervals [place] Rate: 62 P: 33 AR: 182 QRS: -39 QRSD: 96 T: 31 QT: 470 QTc: 477 Interpretive Statements Normal sinus rhythm Left axis deviation Septal infarct , age undetermined Nonspecific ST T wave changes Borderline prolonged QTc cw 09/09/[address] T wave changes prolonged QTc new Electronically Signed on 08-06-2021 6:27:57 EST by Mitul Garcia
[2021-08-06 08:00] VITALS: BP 143/64; O2SAT 96
[2021-08-06] MEDS ORDERED: APIXABAN 5 MG TAB (ELIQUIS) PO SCH (09:00)
[2021-08-06] MEDS: LACTULOSE 20 GM/30 ML SYRUP UD PO SCH ×4 (09:43→21:24)
[2021-08-06] MEDS: cefTRIAXone SOD 1 GM in D5W MINI-BAG PLUS 50 ML IV SCH (09:43)
[2021-08-06] MEDS: OMEPRAZOLE 20 MG CAP PO SCH ×2 (09:44→21:24)
--- NOTE | 2021-08-06 09:52 | IPNPDOC ---
Text Note Date of Service The patient was seen on 08/06/21. NOTE Subjective: 71-year-old female admitted for hepatic and metabolic encephalopathy. Patient was seen and examined at bedside this morning. She was awake, alert, and oriented to self, place, but could not recall the year but was able to state it was a day after [place]. She was following full commands. She was unable to describe why she was brought to the emergency room department. However, she did recall her recently . She was requested to be discharged today, she was explained studies including blood cultures and a paracentesis were pending. Otherwise, she denied chest pain, shortness of breath. She described having abdominal pain 3 to 4 days ago but reported it had resolved at this time. She reports no issues with her urination and bowel movements. She denies focal weakness. Review of systems: 10 point review of system was negative except for what is noted in the HPI Physical exam: General: Lying in bed, no acute distress Head/Neck/Throat: Trachea midline, mucous membranes moist Eyes: Sclera anicteric, no erythema or discharge appreciated bilaterally Thorax: Normal respiratory effort on room air, lungs clear to auscultation b ilaterally, no wheezes/rales/rhonchi Cardiovascular: Normal rate, regular rhythm, normal S1, S2; no S3, S4, rubs/gallops/murmurs Abdomen: Bowel sounds present, soft, nontender, mildly distended Genitourinary: No CVA tenderness, no Tyler in place Musculoskeletal: Moving all extremities, no edema Skin: Warm, dry Neurologic: Awake, alert, oriented (to self, place, knew his the day after [place] but could not recall the year, knew the president's name). Able to follow commands and answer questions appropriately. No focal deficits appreciated. Labs: See below Imaging: Please see imaging section Assessment/plan: 71-year-old female with a past medical history of pancreatic carcinoma status post Whipple's procedure currently being treated at [facility], hepatic liver cirrhosis recent recurrent ascites and undergoing weekly paracentesis, SAH, CAD, HTN, HLD, and hypothyroidism presented to the emergency room department on 08/05 for evaluation of her altered mental status. She was found by her neighbor and her altered state and hallucinating. #Encephalopathy -There has been improvement in her mental status and she appears to be back to baseline. This was likely secondary to: -Hepatic encephalopathy, initial ammonia was 152 which is down trended to 53. Continue with lactulose and rifaximin. -Metabolic encephalopathy possibly from infectious etiology, r/o sbp. Urina lysis showed leukocytosis with 2+ bacteria, no nitrate. Continue antibiotics until studies have resulted. #Hepatic encephalopathy -plan as above. Titrate lactulose to 3 bowel movements a day #Liver cirrhosis -Liver function tests her stable at this time. As per patient, onset of symptoms will post procedure. #Electrolyte abnormality -Hypokalemia, repeat chemistry to ensure potassium is within normal limits, if not this will need to be treated. #Lactic acidosis -Resolved after fluid resuscitation. #Influenza -Supportive care. Patient's respiratory status is stable at this time. #DVT -Bilateral lower extremity DVTs. She has a history of this and was on Eliquis. Eliquis has been held for anticipation of a paracentesis, continue with heparin GTT. #Hypothyroidism -TSH is markedly elevated. With improved mentation there is low suspicion for myxedema coma. Levothyroxine increased, recheck tsh in 6 weeks w/ pcp. #Hypertension -Continue with lisinopril #GERD -Continue with omeprazole #Leukopenia -Stable, follows hematology/oncology #Thrombocytopenia -Stable, follows with hematology/oncology #Pancreatic cancer -Follow-up with cancer center. #DVT prophylaxis -On heparin GTT Family discussion: Was able to get in touch with patient's son Don reported patient just lost her on the morning of [place]. Following this she became incoherent and he felt that a lot of her change in mental status must have been due to grief as well. He was explained in length about the current treatment plan and clinical course. Including treating for hepatic encephalopathy and suspected SBP and urinary tract infection. He reports her mental status is approaching to marcelo ulrich and there is significant improvement from yesterday after he had spoken to her today. VS,Fishbone, I+O VS, Fishbone, I+O Laboratory Tests 08/05/21 21:02 Vital Signs Date Time Temp Pulse Resp B/P (MAP) Pulse Ox O2 Delivery O2 Flow Rate FiO2 08/06/21 08:00 99.2 73 18 143/64 (90) 99 Room Air I&O- Last 24 Hours up to 6 AM 08/06/21 06:00 Intake Total 1161 ml Output Total 300 ml Balance 861 ml JESSIKA VILCHIS M.D. Aug 06, 2021 09:52
[2021-08-06 10:55] LABS: ALBUMIN 1.9 GM/DL (3.2-5.2); ALT/SGPT 14 U/L (12-78); BILIRUBIN,TOTAL 0.8 MG/DL (0.2-1.0); BLOOD UREA NITROGEN 22 MG/DL (7-18); CALCIUM LEVEL 7.6 MG/DL (8.8-10.2); CARBON DIOXIDE LEVEL 24 MEQ/L (21-32); CHLORIDE LEVEL 112 MEQ/L (98-107); CREATININE FOR GFR 0.68 MG/DL (0.55-1.30); FREE T4 0.75 NG/DL (0.76-1.46); GLOMERULAR FILTRATION RATE > 60.0 (>39); GLUCOSE, FASTING 79 MG/DL (70-100); MAGNESIUM LEVEL 1.9 MG/DL (1.8-2.4); POTASSIUM SERUM 4.1 MEQ/L (3.5-5.1); SODIUM LEVEL 142 MEQ/L (136-145); TOTAL PROTEIN 5.1 GM/DL (6.4-8.2)
[2021-08-06 12:00] VITALS: O2SAT 98
[2021-08-06 12:02] VITALS: BP 147/67
[2021-08-06 16:00] VITALS: BP 125/89; O2SAT 96
[2021-08-06 20:00] VITALS: BP 120/58; O2SAT 96
[2021-08-07] VITALS: BP 128/68; O2SAT 96
[2021-08-07] MEDS: HEPARIN DRIP 25,000 UNITS in IV 1 EA IV SCH ×2 (02:30→14:51)
[2021-08-07 04:00] VITALS: BP 134/70; O2SAT 98
[2021-08-07 05:32] LABS: HEMATOCRIT 31.2 % (36.0-47.0); HEMOGLOBIN 10.3 g/dl (12.0-15.5); MEAN CORPUSCULAR HEMOGLOBIN 36.8 pg (27.0-33.0); MEAN CORPUSCULAR VOLUME 111.4 fl (80.0-96.0); PLATELET COUNT, AUTOMATED 112 10^3/uL (150-450); WHITE BLOOD COUNT 3.4 10^3/uL (4.0-10.0)
[2021-08-07 05:50] LABS: MAGNESIUM LEVEL 1.8 MG/DL (1.8-2.4); PHOSPHORUS LEVEL 2.6 MG/DL (2.5-4.9)
[2021-08-07 06:09] LABS: ALBUMIN 1.9 GM/DL (3.2-5.2); ALT/SGPT 11 U/L (12-78); BILIRUBIN,TOTAL 0.5 MG/DL (0.2-1.0); BLOOD UREA NITROGEN 21 MG/DL (7-18); CALCIUM LEVEL 7.3 MG/DL (8.8-10.2); CARBON DIOXIDE LEVEL 22 MEQ/L (21-32); CHLORIDE LEVEL 114 MEQ/L (98-107); CREATININE FOR GFR 0.75 MG/DL (0.55-1.30); GLOMERULAR FILTRATION RATE > 60.0 (>39); GLUCOSE, FASTING 81 MG/DL (70-100); POTASSIUM SERUM 3.9 MEQ/L (3.5-5.1); SODIUM LEVEL 142 MEQ/L (136-145); TOTAL PROTEIN 4.5 GM/DL (6.4-8.2)
[2021-08-07] MEDS: LEVOTHYROXINE 112MCG TABLET (0.112MG) PO SCH (06:27)
[2021-08-07 08:00] VITALS: BP 131/63
--- NOTE | 2021-08-07 08:32 | IPNPDOC ---
Text Note Date of Service The patient was seen on 08/07/21. NOTE Subjective: 71-year-old female admitted for hepatic and metabolic encephalopathy. Patient was seen and examined at bedside this morning. She was awake and alert. She was able to state her name, place, and president; had trouble with the year. She is answering questions appropriately and following commands. She was able to verify talking to her son yesterday. Asking to go home, explained about her scheduled paracentesis today and also urinary retention. Denies chest pain, sob. Review of systems: 10 point review of system was negative except for what is noted in the HPI Physical exam: General: Lying in bed, no acute distress Head/Neck/Throat: Trachea midline, mucous membranes moist Eyes: Sclera anicteric, no erythema or discharge appreciated bilaterally Thorax: Normal respiratory effort on room air, lungs clear to auscultation bilaterally, no wheezes/rales/rhonchi Cardiovascular: Normal rate, regular rhythm, normal S1, S2; no S3, S4, rubs/gallops/murmurs Abdomen: Bowel sounds present, soft, nontender, mildly distended Genitourinary: No CVA tenderness, no Tyler in place Musculoskeletal: Moving all extremities, no edema Skin: Warm, dry Neurologic: Awake, alert, oriented (to self, place, knew his the day after [place] but could not recall the year, knew the president's name). Able to follow commands and answer questions appropriately. No focal deficits appreciated. Labs: See below Imaging: Please see imaging section Assessment/plan: 71-year-old female with a past medical history of pancreatic carcinoma status post Whipple's procedure currently being treated at [facility], hepatic liver cirrhosis recent recurrent ascites and undergoing weekly paracentesis, SAH, CAD, HTN, HLD, and hypothyroidism presented to the emergency room department on 08/05 for evaluation of her altered mental status. She was found by her neighbor and her altered state and hallucinating. #Encephalopathy -There has been improvement in her mental status and she appears to be back to baseline. This was likely secondary to: -Hepatic encephalopathy, increased lactulose; c/w rifaximin -Metabolic encephalopathy possibly from infectious etiology, r/o sbp. Urinalysis showed leukocytosis with 2+ bacteria, no nitrate. Continue antibiotics until studies/cx have resulted. #Hepatic encephalopathy -plan as above. Titrate lactulose to 3 bowel movements a day #Liver cirrhosis -Liver function tests her stable at this time. As per patient, onset of cirrhosis was post whipple procedure. #Electrolyte abnormality -Hypokalemia, resolved. #Lactic acidosis -Resolved after fluid resuscitation. #Influenza -Supportive care. Patient's respiratory status is stable at this time. #DVT -Bilateral lower extremity DVTs. She has a history of this and was on Eliquis. Eliquis has been held for anticipation of a paracentesis, continue with heparin GTT. #Hypothyroidism -TSH is markedly elevated. With improved mentation there is low suspicion for myxedema coma. Levothyroxine increased, recheck tsh in 6 weeks w/ pcp. #Hypertension -Continue with lisinopril #GERD -Continue with omeprazole #Leukopenia -Stable, follows hematology/oncology #Thrombocytopenia -Stable, follows with hematology/oncology #Pancreatic cancer -Follow-up with cancer center. #DVT prophylaxis -On heparin GTT VS,Fishbone, I+O VS, Fishbone, I+O Laboratory Tests 08/06/21 09:57 08/07/21 04:55 Vital Signs Date Time Temp Pulse Resp B/P (MAP) Pulse Ox O2 Delivery O2 Flow Rate FiO2 08/07/21 04:00 97.8 67 18 134/70 (91) 97 Room Air I&O- Last 24 Hours up to 6 AM 08/07/21 06:00 Intake Total 2200.2 ml Output Total 1250 ml Balance 950.2 ml JESSIKA VILCHIS M.D. Aug 07, 2021 08:32
[2021-08-07] MEDS ORDERED: MAGNESIUM OXIDE 400MG TAB (MAG-OX) PO ONE (08:45)
[2021-08-07] MEDS: OMEPRAZOLE 20 MG CAP PO SCH ×2 (09:48→21:39)
[2021-08-07] MEDS: cefTRIAXone SOD 1 GM in D5W MINI-BAG PLUS 50 ML IV SCH (09:49)
[2021-08-07] MEDS: LACTULOSE 20 GM/30 ML SYRUP UD PO SCH ×4 (09:49→21:40)
[2021-08-07 12:26] VITALS: BP 137/62
[2021-08-07 12:39] LABS: SPEC. GRAVITY BODY FLUIDS 1.009 (NOT ESTABLISHED)
[2021-08-07 12:43] LABS: SOURCE, BODY FLUID ASCITES
[2021-08-07 12:44] LABS: APPEARANCE, BODY FLUID CLEAR (CLEAR); ASCITES FL COLOR PALE YELLOW (COLORLESS)
[2021-08-07 13:12] LABS: SOURCE, BODY FLUID ALBUMIN ASCITES; SOURCE, BODY FLUID GLUCOSE ASCITES; SOURCE, BODY FLUID TOT PROTEIN ASCITES; TOTAL PROTEIN, BODY FLUID 0.9 G/DL (NOT ESTABLISHED)
[2021-08-07 13:47] LABS: INR 1.42; PROTHROMBIN TIME 17.8 SECONDS (12.7-14.5)
[2021-08-07 13:48] LABS: PARTIAL THROMBOPLASTIN TIME 36.7 SECONDS (25.9-37.0)
[2021-08-07 16:00] VITALS: BP 153/66
--- NOTE | 2021-08-07 16:50 | REP ---
INDICATION: ascites. COMPARISON: None. TECHNIQUE: The procedure was performed under the direct supervision of Dr. Cervantes. The risks and benefits of the procedure were explained to the patient and informed consent was obtained. The largest pocket of fluid was localized in the right flank using ultrasound guidance. The skin was prepped and draped in a sterile fashion. 6 mL of 1% lidocaine was used as a local anesthetic. An 8-Irish multi side-hole catheter was inserted using trocar technique.4150 mL of clear yellow fluid was withdrawn with a sample sent to the lab for analysis. Estimated blood loss: Less than 1 mL The patient tolerated the procedure well and there were no immediate complications. After the appropriate amount of monitored convalescence, the patient was discharged from the department. FINDINGS: None IMPRESSION: Ultrasound-guided paracentesis [id number] mL of clear yellow fluid. <Electronically signed by eCsar Jones > 08/07/21 1345 <Electronically signed by Justin Cervantes > 08/07/21 [id number]
[2021-08-07] MEDS ORDERED: LACT20EL PO (18:56)
[2021-08-07] MEDS ORDERED: SYNT112T2 PO (18:56)
[2021-08-07 20:00] VITALS: BP 134/70
[2021-08-07] MEDS: APIXABAN 5 MG TAB (ELIQUIS) PO SCH (21:39)
[2021-08-08] VITALS: BP 134/67
[2021-08-08] MEDS ORDERED: MORPHINE 4 MG/ML 1ML VIAL/SYRINGE (J2270) IV PRN (02:35)
[2021-08-08] MEDS: KETOROLAC 30 MG/ML 1ML VIAL IV PRN ×2 (02:44→03:09)
[2021-08-08 04:00] VITALS: BP 113/55
[2021-08-08 05:22] LABS: HEMATOCRIT 29.9 % (36.0-47.0); HEMOGLOBIN 9.8 g/dl (12.0-15.5); MEAN CORPUSCULAR HGB CONC 32.8 g/dl (32.0-36.5); MEAN CORPUSCULAR VOLUME 112.8 fl (80.0-96.0); PLATELET COUNT, AUTOMATED 104 10^3/uL (150-450); RED BLOOD COUNT 2.65 10^6/uL (4.00-5.40); WHITE BLOOD COUNT 3.1 10^3/uL (4.0-10.0)
[2021-08-08] MEDS: LEVOTHYROXINE 112MCG TABLET (0.112MG) PO SCH (05:44)
[2021-08-08 05:50] LABS: ALBUMIN 1.7 GM/DL (3.2-5.2); ALT/SGPT 11 U/L (12-78); BILIRUBIN,TOTAL 0.5 MG/DL (0.2-1.0); BLOOD UREA NITROGEN 17 MG/DL (7-18); CARBON DIOXIDE LEVEL 24 MEQ/L (21-32); CHLORIDE LEVEL 114 MEQ/L (98-107); CREATININE FOR GFR 0.73 MG/DL (0.55-1.30); GLOMERULAR FILTRATION RATE > 60.0 (>39); GLUCOSE, FASTING 94 MG/DL (70-100); MAGNESIUM LEVEL 1.9 MG/DL (1.8-2.4); PHOSPHORUS LEVEL 2.1 MG/DL (2.5-4.9); POTASSIUM SERUM 3.7 MEQ/L (3.5-5.1); SODIUM LEVEL 143 MEQ/L (136-145); TOTAL PROTEIN 4.3 GM/DL (6.4-8.2)
[2021-08-08 08:00] VITALS: BP 125/62
[2021-08-08] MEDS ORDERED: PILL CUTTER 1 EACH XX PRN (09:35)
[2021-08-08] MEDS: LACTULOSE 20 GM/30 ML SYRUP UD PO SCH (10:04)
[2021-08-08] MEDS: OMEPRAZOLE 20 MG CAP PO SCH (10:05)
[2021-08-08 10:06] VITALS: BP 125/62
[2021-08-08] MEDS: APIXABAN 5 MG TAB (ELIQUIS) PO SCH (10:06)
[2021-08-08] MEDS: cefTRIAXone SOD 1 GM in D5W MINI-BAG PLUS 50 ML IV SCH (10:07)
[2021-08-08] MEDS ORDERED: CEPH500T PO (10:15)
--- NOTE | 2021-08-08 10:23 | DS.PDOC ---
Discharge Summary General Date of Admission Aug 05, 2021 at 23:47 Date of Discharge 08/08/21 Discharge Summary DISCHARGE DIAGNOSES: Hepatic and metabolic encephalopathy Liver cirrhosis Electrolyte abnormality Influenza DVT in the lower extremities Pancytopenia Pancreatic cancer COMPLICATIONS/CHIEF COMPLAINT: Hepatic Encephalopathy. HOSPITAL COURSE: Ms. Heart, is a 71-year-old female who presented to the emergency room department with a change in mental status. On the morning of 08/05 following h er 's she was felt to be incoherent and acutely altered. Therefore her neighbor and son felt evaluation was warranted and EMS was called. She has a past medical history of pancreatic carcinoma status post Whipple's procedure currently being treated at [facility], hepatic liver cirrhosis recent recurrent ascites and undergoing weekly paracentesis, SAH, CAD, HTN, HLD, and hypothyroidism. In the emergency room department work-up was significant for hyperammonemia of 152, hyperkalemia fo 5.4, slight lactic acidosis of 2.2 and large volume ascites on physical exam. Patient also found to be influenza A. She was admitted to the hospitalist service for further evaluation and management Her encephalopathy was multifactorial. She was treated for hepatic encephalopathy with lactulose. She was also suspected to have metabolic encephalopathy secondary to possible urinary tract infection as well as influenza. She was empirically started on ceftriaxone, which also helped treat her urinary tract infection. There was no respiratory distress secondary to her influenza and she did not require oxygen supplementation or inhaler support. There was also a component of grief that may have contributed. She has idiopathic liver cirrhosis which she states happened after her Whipple's procedure. She has been undergoing weekly paracentesis. She had one done on 08/07 to rule out SBP and for therapeutic reasons. Her SAAG score was less than 0.9 which is suspected to do with her pancreatic carcinoma. Amylase and cytology studies were pending and are important to be followed up with her primary care doctor. This explained to her in length. Studies were not consis tent with SBP. 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 Her levothyroxine was increased from 88 to 112 MCG. She'll need to have repeat thyroid function test done in 4-6 to ensure further adjustments are not required. This can be done with your primary care physician. Patient asked to have repeat blood work done to ensure her anemia is stable. She should also have her complete metabolic panel checked to ensure her elect rolytes and liver functions are stable. She is also asked to have repeat ammonia levels checked with her next follow-up. At the time of discharge, patient was back to baseline mental status. She was cleared by physical therapy. She had no abdominal complaints and reported feeling well after her paracentesis. Patient's family doctor's office (Dr. Holt) was made aware the follow-ups that are required. Patient was also asked to follow-up with her primary care physician to ensure for her follow-ups. DISCHARGE MEDICATIONS: Please see below. ALLERGIES: Please see below. PHYSICAL EXAMINATION ON DISCHARGE: VITAL SIGNS: Please see below. General: Lying in bed, no acute distress Head/Neck/Throat: Trachea midline, mucous membranes moist Eyes: Sclera anicteric, PERRLA Thorax: Normal respiratory effort on room air, lungs clear to auscultation bilaterally, no wheezes/rales/rhonchi Cardiovascular: Normal rate, regular rhythm, normal S1, S2; no S3, S4, rubs/gallops/murmurs Abdomen: Bowel sounds present, soft/nontender/nondistended Genitourinary: No CVA tenderness, no Tyler in place Musculoskeletal: Moving all extremities, no edema Skin: Warm, dry Neurologic: AAOx3, speech fluent and goal-directed, no focal deficits, grossly intact LABORATORY DATA: Please see below. IMAGING: Please see imaging section Patient asked to obtain all imaging records were follow-up step may be required PROGNOSIS: Good ACTIVITY: As tolerated ITEMS TO FOLLOWUP ON ON OUTPATIENT: As mentioned above DISCHARGE CONDITION: Stable. TIME SPENT ON DISCHARGE: 30 minutes. Vital Signs/I&Os Vital Signs Date Time Temp Pulse Resp B/P (MAP) Pulse Ox O2 Delivery O2 Flow Rate FiO2 08/08/21 08:00 97.6 60 18 125/62 (83) 98 Room Air I&O- Last 24 Hours up to 6 AM 08/08/21 06:00 Intake Total 1430 ml Output Total 8800 ml Balance -7370 ml Laboratory Data Labs 24H Laboratory Tests 2 08/07/21 11:55: Body Fluid Source ASCITES, Body Fluid Color PALE YELLOW, Body Fluid Appearance CLEAR, Body Fluid Specific [place] 1.009, Body Fluid WBC (Auto) 7, Body Fluid RBC (Auto) < 2, Body Fluid Mononuclear Cells % Auto 85.8H, Fluid Polymorphonuclear Cell % Auto 14.2H, Body Fluid Glucose Source ASCITES, Body Fluid Glucose 85, Body Fluid Protein Source ASCITES, Body Fluid Total Protein 0.9, Body Fluid Albumin Source ASCITES, Body Fluid Albumin 0.4 08/07/21 12:34: Bedside Glucose (Misc Panel) 108 08/07/21 13:17: Prothrombin Time 17.8H, Prothromb Time International Ratio 1.42, Activated Partial Thromboplast Time 36.7 08/07/21 16:57: Bedside Glucose (Misc Panel) 105 08/08/21 01:02: Bedside Glucose (Misc Panel) 103 08/08/21 05:00: Nucleated Red Blood Cells % (auto) 0.0, Anion Gap 5L, Glomerular Filtration Rate > 60.0, Calcium Level 7.0L, Phosphorus Level 2.1L, Magnesium Level 1.9, Total Bilirubin 0.5, Aspartate Amino Transf (AST/SGOT) 25, Alanine Aminotransferase (ALT/SGPT) 11L, Alkaline Phosphatase 122H, Ammonia 62H, Total Protein 4.3L, Albumin 1.7L, Albumin/Globulin Ratio 0.7L CBC/BMP Laboratory Tests 08/08/21 05:00 FSBS Laboratory Tests Test 08/07/21 12:34 08/07/21 16:57 08/08/21 01:02 Range/Units Bedside Glucose (Misc Panel) 108 105 103 83-110 MG/DL Microbiology Microbiology 08/07/21 Acid Fast Stain, Received Pending 08/07/21 Mycobacterial Culture, Received Pending 08/07/21 Fungal Smear, Received Pending 08/07/21 Fungal Culture, Received Pending 08/07/21 Gram Stain - Final, Resulted 08/07/21 Body Fluid Culture, Resulted Pending 08/05/21 Urine Culture - Final, Complete Enterococcus Faecalis 08/05/21 Blood Culture - Preliminary, Resulted No Growth after 48 hours. All Specime... 08/05/21 Blood Culture - Preliminary, Resulted No Growth after 48 hours. All Specime... Discharge Medications Scheduled Apixaban (Eliquis) 5 Mg Tablet, 5 MG PO BID, (Reported) Cephalexin (Cephalexin) 500 Mg Tablet, 1 TAB PO QID Lactulose (Lactulose) 10 Gm/15 Ml Solution, 40 ML PO QID Hold if greater than 3 bowel movements in a day Levothyroxine Sodium (Synthroid) 112 Mcg Tablet, 112 MCG PO DAILY@0600 Lisinopril (Lisinopril) 30 Mg Tablet, 30 MG PO DAILY, (Reported) Omeprazole (Omeprazole) 40 Mg Capsule.dr, 40 MG PO BID, (Reported) Scheduled PRN Hydrocodone/Acetaminophen (Hydrocodone-Acetamin 10-325 mg) 1 Each Tablet, 1 TAB PO Q6H PRN for PAIN, (Reported) Lorazepam (Ativan) 0.5 Mg Tablet, 0.5 MG PO BID PRN for ANXIETY/AGITATION, (Reported) Sennosides (Senna) 8.6 Mg Tablet, 8.6 MG PO DAILY PRN for CONSTIPATION, (Reported) Allergies Coded Allergies: No Known Allergies (Unverified , 08/29/19) JESSIKA VILCHIS M.D. Aug 08, 2021 10:23
[2021-08-08] MEDS ORDERED: K-PHOS ORIGINAL (POT.ACID PHOSPHATE) 500MG TAB PO ONE (11:00)
== END 2021-08-08 11:40 | disposition home or self-care (01) | DRG 432 ==
LOC: M ED 18:49 → EDBD 18:49 → M ED INP 23:47 → M PCU 08-06 01:35
PROVIDERS: ADMIT Internal Medicine; ATTEND Internal Medicine
PROC: 0W9G3ZZ Drainage of Peritoneal Cavity, Percutaneous Approach (ICD-10-PCS; principal; 2021-08-07 12:30)
DX: K74.60 Unspecified cirrhosis of liver (principal); G93.41 Metabolic encephalopathy; R18.8 Other ascites; C25.9 Malignant neoplasm of pancreas, unspecified; I82.413 Acute embolism and thrombosis of femoral vein, bilateral; E87.2 Acidosis; D61.818 Other pancytopenia; N39.0 Urinary tract infection, site not specified; K72.90 Hepatic failure, unspecified without coma; J09.X2 Influenza due to identified novel influenza A virus with other respiratory manifestations; E87.5 Hyperkalemia; I10 Essential (primary) hypertension; E03.9 Hypothyroidism, unspecified; Z79.899 Other long term (current) drug therapy

== ENCOUNTER 2021-08-24 15:34 | Inpatient (IN) | payer MEDICARE, OTHER ==
[~2021-08-24] VITALS: Ht 167.6 cm; Wt 80.5 kg
[~2021-08-24 15:34] MED LIST changes: +CEPH500T PO; +LACT20EL PO; +LEVO88TA3 PO; +MED REC COMMENT; +OMEP-173 PO; -OMEP-218 PO; -OMEP-221 PO; +OMEP40CA5 PO; +POTA-151 PO; -POTA20TA6 PO; -PROC10TA4 PO; +PROC10TA5 PO; +SYNT112T2 PO
[2021-08-24] MEDS ORDERED: LIDOCAINE 2% 5ML JELLY UROJET TOP ONE (17:30)
[2021-08-24 18:59] LABS: HEMATOCRIT 33.7 % (36.0-47.0); MEAN CORPUSCULAR HEMOGLOBIN 35.4 pg (27.0-33.0); MEAN CORPUSCULAR HGB CONC 32.6 g/dl (32.0-36.5); MEAN CORPUSCULAR VOLUME 108.4 fl (80.0-96.0); RED BLOOD COUNT 3.11 10^6/uL (4.00-5.40)
[2021-08-24 19:04] LABS: PLATELET COUNT, AUTOMATED 95 10^3/uL (150-450); WHITE BLOOD COUNT 0.8 10^3/uL (4.0-10.0)
[2021-08-24 19:11] LABS: AMPHETAMINES LEVEL URINE NEGATIVE (NEGATIVE); BARBITURATES URINE NEGATIVE (NEGATIVE); BENZODIAZEPINES URINE NEGATIVE (NEGATIVE); CANNABINOIDS URINE NEGATIVE (NEGATIVE); COCAINE METABOLITE URINE NEGATIVE (NEGATIVE); METHADONE URINE NEGATIVE (NEGATIVE); OPIATES URINE POSITIVE (NEGATIVE); PHENCYCLIDINE URINE NEGATIVE (NEGATIVE)
[2021-08-24 19:13] LABS: INR 1.18; PROTHROMBIN TIME 15.5 SECONDS (12.7-14.5)
[2021-08-24 19:14] LABS: PARTIAL THROMBOPLASTIN TIME 36.5 SECONDS (25.9-37.0)
[2021-08-24 19:16] LABS: ACETAMINOPHEN LEVEL 18.3 UG/ML (10.0-30.0); ALBUMIN 2.3 GM/DL (3.2-5.2); ALT/SGPT 24 U/L (12-78); BILIRUBIN,DIRECT 0.2 MG/DL (0.0-0.2); BILIRUBIN,TOTAL 0.4 MG/DL (0.2-1.0); BLOOD UREA NITROGEN 34 MG/DL (7-18); CALCIUM LEVEL 7.7 MG/DL (8.8-10.2); CARBON DIOXIDE LEVEL 24 MEQ/L (21-32); CHLORIDE LEVEL 110 MEQ/L (98-107); CREATININE FOR GFR 1.12 MG/DL (0.55-1.30); ETHYL ALCOHOL (ETHANOL) < 0.003 % (0.000-0.010); GLOMERULAR FILTRATION RATE 50.9 (>39); GLUCOSE, FASTING 90 MG/DL (70-100); NT-PRO BNP 1965 PG/ML (<125); POTASSIUM SERUM 4.8 MEQ/L (3.5-5.1); SALICYLATE LEVEL < 1.7 MG/DL (5.0-30.0); SODIUM LEVEL 142 MEQ/L (136-145); TOTAL PROTEIN 5.7 GM/DL (6.4-8.2)
[2021-08-24 19:16] LABS: CK-MB VALUE MASS 4.8 NG/ML (<3.6); MB/CK RELATIVE INDEX 0.67 (< OR =4)
[2021-08-24 19:33] LABS: LIPASE 41 U/L (73-393)
[2021-08-24 19:37] LABS: ATYPICAL LYMPH 6 % (0-5); EOSINOPHILS 8 % (0-3); LYMPHOCYTES 32 % (16-44); MONOCYTES 4 % (0-5); NEUTROPHILS 46 % (28-66)
[2021-08-24 19:39] LABS: PLATELET ESTIMATE DECREASED (NORMAL); POIKILOCYTOSIS 1+
[2021-08-24] MEDS ORDERED: SYNT112T2 PO (19:40)
[2021-08-24] MEDS ORDERED: LACT20EL PO (19:40)
[2021-08-24] MEDS ORDERED: HOME MED LIST COMPLETE! XX SCH (19:45)
[2021-08-24] MEDS ORDERED: ACETAMINOPHEN TAB 650MG DOSE (2X325MG) PO PRN (20:05)
[2021-08-24] MEDS ORDERED: LACTULOSE 20 GM/30 ML SYRUP UD PO PRN (20:05)
[2021-08-24] MEDS ORDERED: MOM 30ML SUSPENSION UDC PO PRN (20:05)
[2021-08-24 20:16] LABS: CA19-9 TUMOR MARKER,CARBOHYDRA 17.8 U/ML (<35.0)
[2021-08-24 20:51] LABS: C REACTIVE PROTEIN QUANTITATIV 5.36 MG/DL (0.00-0.30); FERRITIN 1774 NG/ML (8-252)
[2021-08-24] MEDS ORDERED: cefTRIAXone SOD 1 GM in D5W MINI-BAG PLUS 50 ML IV SCH (21:00)
[2021-08-24] MEDS ORDERED: NS 1,000 ML IV SCH (22:00)
[2021-08-24 22:12] LABS: SODIUM,RANDOM URINE < 10 MEQ/L
[2021-08-24] MEDS: APIXABAN 5 MG TAB (ELIQUIS) PO SCH (22:36)
[2021-08-24] MEDS: DOCUSATE SODIUM 100MG CAPSULE PO SCH (22:36)
[2021-08-24] MEDS: OMEPRAZOLE 20 MG CAP PO SCH (22:37)
[2021-08-25] VITALS (7 sets, daily range): BP systolic 136–177; BP diastolic 63–79; O2SAT 93–97
[2021-08-25] MEDS: LEVOTHYROXINE 112MCG TABLET (0.112MG) PO SCH (06:15)
[2021-08-25 06:29] LABS: VENOUS BASE EXCESS -3.4 (-2.0-2.0); VENOUS HCO3 21.5 MEQ/L (23.0-27.0); VENOUS PARTIAL PRESSURE CO2 38.2 mmHg (38.0-50.0); VENOUS PARTIAL PRESSURE O2 27.5 mmHg (30.0-50.0); VENOUS PH 7.369 UNITS (7.330-7.430); VENOUS STANDARD HCO3 20.9 MEQ/L; VENOUS TOTAL CO2 22.7 MEQ/L (24.0-28.0)
[2021-08-25 06:36] LABS: HEMATOCRIT 32.5 % (36.0-47.0); HEMOGLOBIN 10.7 g/dl (12.0-15.5); MEAN CORPUSCULAR HEMOGLOBIN 35.8 pg (27.0-33.0); MEAN CORPUSCULAR HGB CONC 32.9 g/dl (32.0-36.5); MEAN CORPUSCULAR VOLUME 108.7 fl (80.0-96.0); RED BLOOD COUNT 2.99 10^6/uL (4.00-5.40)
[2021-08-25 06:38] LABS: PLATELET COUNT, AUTOMATED 79 10^3/uL (150-450)
[2021-08-25 06:39] LABS: WHITE BLOOD COUNT 0.7 10^3/uL (4.0-10.0)
[2021-08-25 07:02] LABS: ALBUMIN 1.8 GM/DL (3.2-5.2); BILIRUBIN,TOTAL 0.4 MG/DL (0.2-1.0); CALCIUM LEVEL 7.3 MG/DL (8.8-10.2); CREATININE FOR GFR 0.98 MG/DL (0.55-1.30); GLOMERULAR FILTRATION RATE 59.4 (>39); POTASSIUM SERUM 4.4 MEQ/L (3.5-5.1)
[2021-08-25] MEDS: OMEPRAZOLE 20 MG CAP PO SCH ×2 (09:26→20:41)
[2021-08-25] MEDS: APIXABAN 5 MG TAB (ELIQUIS) PO SCH ×2 (09:26→20:40)
[2021-08-25] MEDS: DOCUSATE SODIUM 100MG CAPSULE PO SCH ×2 (09:26→20:40)
[2021-08-25] MEDS: DOXYCYCLINE HYCLATE 100 MG in D5W MINI-BAG PLUS 100 ML IV SCH ×3 (09:26)
[2021-08-25] MEDS ORDERED: LIDOCAINE 1% MDV 20ML VIAL As Ordered ONE (15:27)
[2021-08-25] MEDS ORDERED: VANCOMYCIN HCL 1,000 MG, VIAL MATE ADAPTER 1 EACH in NS 250 ML IV SCH (16:55)
[2021-08-25 17:17] LABS: HEMOGLOBIN 11.3 g/dl (12.0-15.5); LYMPH # 0.2 10^3/uL (1.5-5.0); LYMPH % 20.4 % (24.0-44.0); MEAN CORPUSCULAR HEMOGLOBIN 35.1 pg (27.0-33.0); MEAN CORPUSCULAR HGB CONC 33.2 g/dl (32.0-36.5); MEAN CORPUSCULAR VOLUME 105.6 fl (80.0-96.0); MONO # 0.1 10^3/uL (0.0-0.8); MONO % 8.2 % (2.0-8.0); NEUTROPHILS % 68.4 % (36.0-66.0); RED BLOOD COUNT 3.22 10^6/uL (4.00-5.40)
[2021-08-25 17:22] LABS: NEUTROPHILS # 0.7 10^3/uL (1.5-8.5); PLATELET COUNT, AUTOMATED 94 10^3/uL (150-450)
[2021-08-25] MEDS: PIPERACILLIN/TAZOBACTAM SOD 4.5 GM in D5W MINI-BAG PLUS 50 ML IV SCH (17:41)
[2021-08-25] MEDS: FILGRASTIM 480 MCG/0.8 ML SYRINGE **SC ADMINISTRATION ONLY SC SCH (18:27)
[2021-08-25] MEDS ORDERED: VANCOMYCIN HCL 1,000 MG, VIAL MATE ADAPTER 1 EACH in NS 250 ML IV ONE ×2 (19:00→20:00)
[2021-08-26] VITALS: O2SAT 96
[2021-08-26] MEDS: PIPERACILLIN/TAZOBACTAM SOD 4.5 GM in D5W MINI-BAG PLUS 50 ML IV SCH ×3 (00:47→11:27)
[2021-08-26 04:00] VITALS: BP 139/64
[2021-08-26] MEDS: LEVOTHYROXINE 112MCG TABLET (0.112MG) PO SCH (05:54)
[2021-08-26 07:19] LABS: BASO % 0.1 % (0.0-1.0); HEMATOCRIT 34.2 % (36.0-47.0); HEMOGLOBIN 11.3 g/dl (12.0-15.5); LYMPH # 0.3 10^3/uL (1.5-5.0); LYMPH % 2.3 % (24.0-44.0); MEAN CORPUSCULAR HEMOGLOBIN 35.2 pg (27.0-33.0); MEAN CORPUSCULAR VOLUME 106.5 fl (80.0-96.0); MONO # 0.2 10^3/uL (0.0-0.8); MONO % 2.1 % (2.0-8.0); NEUTROPHILS % 91.4 % (36.0-66.0); RED BLOOD COUNT 3.21 10^6/uL (4.00-5.40)
[2021-08-26 07:24] LABS: PLATELET COUNT, AUTOMATED 93 10^3/uL (150-450)
[2021-08-26 07:43] LABS: BLOOD UREA NITROGEN 24 MG/DL (7-18); CALCIUM LEVEL 7.1 MG/DL (8.8-10.2); CARBON DIOXIDE LEVEL 22 MEQ/L (21-32); CHLORIDE LEVEL 114 MEQ/L (98-107); CREATININE FOR GFR 0.96 MG/DL (0.55-1.30); GLOMERULAR FILTRATION RATE > 60.0 (>39); GLUCOSE, FASTING 82 MG/DL (70-100); SODIUM LEVEL 142 MEQ/L (136-145)
[2021-08-26 07:58] LABS: ALBUMIN 1.6 GM/DL (3.2-5.2); BILIRUBIN,DIRECT 0.4 MG/DL (0.0-0.2); BILIRUBIN,TOTAL 0.7 MG/DL (0.2-1.0); TOTAL PROTEIN 4.4 GM/DL (6.4-8.2)
[2021-08-26] MEDS: DOCUSATE SODIUM 100MG CAPSULE PO SCH ×2 (10:21→21:00)
[2021-08-26] MEDS: OMEPRAZOLE 20 MG CAP PO SCH ×2 (10:22→21:14)
[2021-08-26] MEDS: APIXABAN 5 MG TAB (ELIQUIS) PO SCH ×2 (10:22→21:14)
[2021-08-26] MEDS: FILGRASTIM 480 MCG/0.8 ML SYRINGE **SC ADMINISTRATION ONLY SC SCH (11:28)
[2021-08-26] MEDS ORDERED: VANCOMYCIN HCL 750 MG, VIAL MATE ADAPTER 1 EACH in NS 250 ML IV SCH (13:00)
[2021-08-26 14:00] VITALS: BP 117/56
[2021-08-26] MEDS ORDERED: VANCOMYCIN HCL 500 MG in D5W MINI-BAG PLUS 100 ML IV SCH (14:00)
[2021-08-26 15:07] LABS: MYCOPLASMA PNEUMONIAE IgG 141 U/mL (0-99); MYCOPLASMA PNEUMONIAE IgM <770 U/mL (0-769)
[2021-08-26] MEDS: LACTOBACILLUS ACIDOPHILUS CAP (BACID) PO SCH ×2 (17:07→21:14)
[2021-08-26 20:00] VITALS: BP 115/59
[2021-08-26] MEDS: CEFDINIR 300 MG CAP (OMNICEF) PO SCH (21:13)
[2021-08-27 04:00] VITALS: BP 110/56
[2021-08-27] MEDS: LEVOTHYROXINE 112MCG TABLET (0.112MG) PO SCH (06:48)
[2021-08-27] MEDS: DOCUSATE SODIUM 100MG CAPSULE PO SCH (07:22)
[2021-08-27] MEDS ORDERED: DOCUSATE SODIUM 100MG CAPSULE PO PRN (08:25)
[2021-08-27 08:41] LABS: BASO # 0.1 10^3/uL (0.0-0.2); BASO % 0.3 % (0.0-1.0); EOS % 0.2 % (0.0-3.0); HEMATOCRIT 36.5 % (36.0-47.0); HEMOGLOBIN 11.8 g/dl (12.0-15.5); LYMPH # 0.5 10^3/uL (1.5-5.0); LYMPH % 2.7 % (24.0-44.0); MEAN CORPUSCULAR HGB CONC 32.3 g/dl (32.0-36.5); MEAN CORPUSCULAR VOLUME 108.3 fl (80.0-96.0); MONO # 0.4 10^3/uL (0.0-0.8); MONO % 2.1 % (2.0-8.0); NEUTROPHILS % 82.2 % (36.0-66.0); PLATELET COUNT, AUTOMATED 102 10^3/uL (150-450); RED BLOOD COUNT 3.37 10^6/uL (4.00-5.40); WHITE BLOOD COUNT 18.3 10^3/uL (4.0-10.0)
[2021-08-27 09:04] LABS: CALCIUM LEVEL 7.2 MG/DL (8.8-10.2); CREATININE FOR GFR 1.03 MG/DL (0.55-1.30); GLOMERULAR FILTRATION RATE 56.1 (>39); POTASSIUM SERUM 3.8 MEQ/L (3.5-5.1)
[2021-08-27] MEDS: LACTOBACILLUS ACIDOPHILUS CAP (BACID) PO SCH ×2 (09:47→11:34)
[2021-08-27] MEDS: OMEPRAZOLE 20 MG CAP PO SCH (09:47)
[2021-08-27] MEDS: CEFDINIR 300 MG CAP (OMNICEF) PO SCH (09:47)
[2021-08-27] MEDS: APIXABAN 5 MG TAB (ELIQUIS) PO SCH (09:47)
[2021-08-27] MEDS ORDERED: CEFD300CAP PO (11:04)
== END 2021-08-27 13:30 | disposition home health service (06) | DRG 70 ==
LOC: M ED 15:34 → EDBD 15:34 → M ED INP 20:05 → M 4MAIN 08-25 00:27
PROVIDERS: ADMIT Family Medicine; ATTEND Family Medicine
PROC: 0W9F3ZZ Drainage of Abdominal Wall, Percutaneous Approach (ICD-10-PCS; principal; 2021-08-25 07:18)
DX: G93.41 Metabolic encephalopathy (principal); U07.1 COVID-19; M62.82 Rhabdomyolysis; D61.818 Other pancytopenia; R18.8 Other ascites; N17.9 Acute kidney failure, unspecified; N39.0 Urinary tract infection, site not specified; Z85.07 Personal history of malignant neoplasm of pancreas; K74.60 Unspecified cirrhosis of liver; E03.9 Hypothyroidism, unspecified; B96.29 Other Escherichia coli [E. coli] as the cause of diseases classified elsewhere; Z86.718 Personal history of other venous thrombosis and embolism; E83.51 Hypocalcemia; I10 Essential (primary) hypertension; E78.5 Hyperlipidemia, unspecified; Z79.899 Other long term (current) drug therapy; Z66 Do not resuscitate; I25.10 Atherosclerotic heart disease of native coronary artery without angina pectoris; Z79.01 Long term (current) use of anticoagulants

== ENCOUNTER → 2021-09-04 | Outpatient (CLI) | payer MEDICARE, OTHER ==
[~2021-09-04] MED LIST changes: +CEFD300CAP PO
[2021-09-04 14:40] VITALS: BP 121/57
== END ==
LOC: M IRPRO 13:27
PROVIDERS: ATTEND Specialist
DX: R18.8 Other ascites (principal)

== ENCOUNTER → 2021-09-12 | Outpatient (CLI) | payer MEDICARE, OTHER ==
[~2021-09-12] MED LIST changes: +SIME80TA16 PO; -SIME80TA5 PO
== END ==
LOC: M LAB 13:26
PROVIDERS: ATTEND Physician Assistant
DX: Z53.9 Procedure and treatment not carried out, unspecified reason (principal); E03.9 Hypothyroidism, unspecified

== ENCOUNTER → 2021-09-12 | Outpatient (CLI) | payer MEDICARE, OTHER ==
[2021-09-12 13:38] VITALS: BP 131/58
== END ==
LOC: M IRPRO 12:33
PROVIDERS: ATTEND Specialist
DX: R18.8 Other ascites (principal)

== ENCOUNTER → 2021-09-19 | Outpatient (CLI) | payer MEDICARE, OTHER ==
[2021-09-19 13:03] VITALS: BP 124/62
== END ==
LOC: M IRPRO 11:37
PROVIDERS: ATTEND Specialist
DX: R18.8 Other ascites (principal)

== ENCOUNTER → 2021-09-26 | Outpatient (CLI) | payer MEDICARE, OTHER ==
[~2021-09-26] MED LIST changes: +SODIUM BICARBONATE 8.4% INJ 50MEQ 50 ML VIAL As Ordered ONE
[2021-09-26 11:28] VITALS: BP 126/73
== END ==
LOC: M IRPRO 10:28
PROVIDERS: ATTEND Specialist
DX: R18.8 Other ascites (principal)

== ENCOUNTER → 2021-10-03 | Outpatient (CLI) | payer MEDICARE, OTHER ==
[~2021-10-03] MED LIST changes: -SODIUM BICARBONATE 8.4% INJ 50MEQ 50 ML VIAL As Ordered ONE
[2021-10-03 12:30] VITALS: BP 131/68
== END ==
LOC: M IRPRO 11:40
PROVIDERS: ATTEND Specialist
DX: R18.8 Other ascites (principal)

== ENCOUNTER → 2021-10-10 | Outpatient (CLI) | payer MEDICARE, OTHER ==
[~2021-10-10] MED LIST changes: +SODIUM BICARBONATE 8.4% INJ 50MEQ 50 ML VIAL As Ordered ONE
[2021-10-10 12:28] VITALS: BP 128/69
== END ==
LOC: M IRPRO 11:24
PROVIDERS: ATTEND Specialist
DX: R18.8 Other ascites (principal)

== ENCOUNTER → 2021-10-17 | Outpatient (CLI) | payer MEDICARE, OTHER ==
[~2021-10-17] MED LIST changes: -SODIUM BICARBONATE 8.4% INJ 50MEQ 50 ML VIAL As Ordered ONE
[2021-10-17 12:20] VITALS: BP 132/82
== END ==
LOC: M IRPRO 11:23
PROVIDERS: ATTEND Specialist
DX: R18.8 Other ascites (principal)

== ENCOUNTER → 2021-10-24 | Outpatient (CLI) | payer MEDICARE, OTHER ==
[2021-10-24 11:57] VITALS: BP 127/61
== END ==
LOC: M IRPRO 11:24
PROVIDERS: ATTEND Specialist
DX: R18.8 Other ascites (principal)

== ENCOUNTER → 2021-10-31 | Outpatient (CLI) | payer MEDICARE, OTHER ==
[2021-10-31 12:35] VITALS: BP 133/58
== END ==
LOC: M IRPRO 11:21
PROVIDERS: ATTEND Specialist
DX: R18.8 Other ascites (principal)

== ENCOUNTER → 2021-11-07 | Outpatient (CLI) | payer MEDICARE, OTHER ==
[2021-11-07 12:36] VITALS: BP 125/61
== END ==
LOC: M IRPRO 11:24
PROVIDERS: ATTEND Specialist
DX: R18.8 Other ascites (principal)

== ENCOUNTER → 2021-11-14 | Outpatient (CLI) | payer MEDICARE, OTHER ==
[~2021-11-14] MED LIST changes: +ACETAMINOPHEN 325 MG TAB As Ordered ONE; +SODIUM BICARBONATE 8.4% INJ 50MEQ 50 ML VIAL As Ordered ONE
[2021-11-14 12:55] VITALS: BP 124/59
== END ==
LOC: M IRPRO 11:23
PROVIDERS: ATTEND Specialist
DX: R18.8 Other ascites (principal)

== ENCOUNTER → 2021-11-21 | Outpatient (CLI) | payer MEDICARE, OTHER ==
[~2021-11-21] MED LIST changes: -ACETAMINOPHEN 325 MG TAB As Ordered ONE
[2021-11-21 11:40] VITALS: BP 118/59
== END ==
LOC: M IRPRO 09:31
PROVIDERS: ATTEND Specialist
DX: R18.8 Other ascites (principal)

== ENCOUNTER 2021-11-28 12:58 | Inpatient (IN) | payer MEDICARE, OTHER ==
[~2021-11-28] VITALS: Ht 162.6 cm; Wt 57.2 kg
[~2021-11-28 12:58] MED LIST changes: -SODIUM BICARBONATE 8.4% INJ 50MEQ 50 ML VIAL As Ordered ONE
[2021-11-28] MEDS ORDERED: NS 500 ML IV ONE (14:00)
[2021-11-28 14:33] LABS: VENOUS BASE EXCESS -5.8 (-2.0-2.0); VENOUS HCO3 19.1 MEQ/L (23.0-27.0); VENOUS O2 SATURATION 61.3 % (60.0-80.0); VENOUS PARTIAL PRESSURE CO2 35.4 mmHg (38.0-50.0); VENOUS PARTIAL PRESSURE O2 32.9 mmHg (30.0-50.0); VENOUS STANDARD HCO3 19.1 MEQ/L; VENOUS TOTAL CO2 20.2 MEQ/L (24.0-28.0)
[2021-11-28 14:39] LABS: HEMATOCRIT 33.2 % (36.0-47.0); MEAN CORPUSCULAR HEMOGLOBIN 35.6 pg (27.0-33.0); MEAN CORPUSCULAR HGB CONC 33.1 g/dl (32.0-36.5); MEAN CORPUSCULAR VOLUME 107.4 fl (80.0-96.0); RED BLOOD COUNT 3.09 10^6/uL (4.00-5.40); WHITE BLOOD COUNT 8.3 10^3/uL (4.0-10.0)
[2021-11-28 14:42] LABS: PLATELET COUNT, AUTOMATED 107 10^3/uL (150-450)
[2021-11-28 15:02] LABS: OSMOLALITY SERUM 290 MOSM/KG (280-301)
[2021-11-28 15:03] LABS: ATYPICAL LYMPH 1 % (0-5); LYMPHOCYTES 13 % (16-44); MONOCYTES 3 % (0-5); NEUTROPHILS 82 % (28-66)
[2021-11-28 15:04] LABS: CRENATED RBC 4+
[2021-11-28 15:05] LABS: OVALOCYTES 1+; PLATELET ESTIMATE DECREASED (NORMAL)
[2021-11-28 15:12] LABS: ALT/SGPT 29 U/L (12-78); BILIRUBIN,DIRECT 0.3 MG/DL (0.0-0.2); BILIRUBIN,TOTAL 0.9 MG/DL (0.2-1.0); BLOOD UREA NITROGEN 34 MG/DL (7-18); CALCIUM LEVEL 7.4 MG/DL (8.8-10.2); CARBON DIOXIDE LEVEL 23 MEQ/L (21-32); CHLORIDE LEVEL 112 MEQ/L (98-107); CREATININE FOR GFR 0.83 MG/DL (0.55-1.30); ETHYL ALCOHOL (ETHANOL) < 0.003 % (0.000-0.010); GLOMERULAR FILTRATION RATE > 60.0 (>39); GLUCOSE, FASTING 86 MG/DL (70-100); POTASSIUM SERUM 3.3 MEQ/L (3.5-5.1); SODIUM LEVEL 140 MEQ/L (136-145); TOTAL PROTEIN 4.7 GM/DL (6.4-8.2)
[2021-11-28] MEDS ORDERED: ISOVUE-370 76% 100ML VIAL As Ordered ONE (16:14)
[2021-11-28] MEDS ORDERED: dexameTHASONE 20MG/5ML VIAL (J1100 PER 1MG) IV ONE (17:40)
[2021-11-28] MEDS ORDERED: cefTRIAXone SOD 2 GM in D5W MINI-BAG PLUS 50 ML IV ONE (17:40)
[2021-11-28 18:13] LABS: AMPHETAMINES LEVEL URINE NEGATIVE (NEGATIVE); BARBITURATES URINE NEGATIVE (NEGATIVE); BENZODIAZEPINES URINE NEGATIVE (NEGATIVE); CANNABINOIDS URINE NEGATIVE (NEGATIVE); COCAINE METABOLITE URINE NEGATIVE (NEGATIVE); METHADONE URINE NEGATIVE (NEGATIVE); OPIATES URINE NEGATIVE (NEGATIVE); PHENCYCLIDINE URINE NEGATIVE (NEGATIVE)
[2021-11-28] MEDS ORDERED: HEPARIN SOD (PORCINE) 5000UNITS/ML 1ML VIAL/SYRINGE SC SCH (18:30)
[2021-11-28 18:40] LABS: FREE T4 0.79 NG/DL (0.76-1.46)
[2021-11-28] MEDS ORDERED: SUCR1TAB56 PO (18:43)
[2021-11-28] MEDS ORDERED: CLON1TAB8 PO (18:43)
[2021-11-28] MEDS ORDERED: HOME MED LIST COMPLETE! XX SCH (18:45)
[2021-11-28] MEDS ORDERED: ENOXAPARIN 80MG/0.8ML SYRINGE (J1650 PER 10MG) SC SCH (19:25)
[2021-11-28] MEDS ORDERED: LEVOTHYROXINE 100MCG (0.1MG) 5ML SDV PF (SOLUTION FORM) IV SCH (19:25)
[2021-11-28] MEDS ORDERED: GLUCAGON INJ 1MG VIAL SC PRN (19:55)
[2021-11-28] MEDS ORDERED: DEXTROSE 50% 50 ML SYRINGE IV PRN (19:55)
[2021-11-28] MEDS ORDERED: GLUCOSE 4GM CHEW TABLET PO PRN (19:55)
[2021-11-28 20:07] LABS: FREE T3 1.2 PG/ML (2.2-4.0)
[2021-11-28 20:11] LABS: CORTISOL BASELINE 27.8 UG/DL (4.3-22.4)
[2021-11-28] MEDS ORDERED: FUROSEMIDE 40MG/4ML VIAL (J1940) IV SCH (21:00)
[2021-11-28] MEDS ORDERED: FUROSEMIDE 40MG/4ML VIAL (J1940) IV ONE (22:00)
[2021-11-28] MEDS: HumaLOG INSULIN (NovoLOG) PER UNIT SC SCH (22:16)
[2021-11-28] MEDS: DOXYCYCLINE HYCLATE 100 MG in D5W MINI-BAG PLUS 100 ML IV SCH (22:17)
[2021-11-28 22:40] VITALS: BP 117/60
[2021-11-28 23:00] VITALS: O2SAT 95
[2021-11-28] MEDS ORDERED: LEVOTHYROXINE 100MCG (0.1MG) 5ML SDV PF (SOLUTION FORM) IV ONE ×2 (23:00)
[2021-11-29] VITALS (10 sets, daily range): BP systolic 115–147; BP diastolic 58–73; O2SAT 92–97
[2021-11-29] MEDS ORDERED: REMDESIVIR 200 MG in NS 250 ML IV ONE (01:00)
[2021-11-29] MEDS: KCL 10MEQ/100ML SWI (KRUN) 10 MEQ in IV 1 EA IV SCH ×6 (01:49→06:15)
[2021-11-29] MEDS ORDERED: SODIUM CHLORIDE 0.9% INJ 10 ML SYR IV ONE (03:00)
[2021-11-29] MEDS ORDERED: LEVOTHYROXINE 100MCG (0.1MG) 5ML SDV PF (SOLUTION FORM) IV SCH (06:00)
[2021-11-29 07:42] LABS: BASO % 0.1 % (0.0-1.0); HEMATOCRIT 31.6 % (36.0-47.0); HEMOGLOBIN 10.7 g/dl (12.0-15.5); LYMPH # 0.6 10^3/uL (1.5-5.0); LYMPH % 5.9 % (24.0-44.0); MEAN CORPUSCULAR HEMOGLOBIN 35.2 pg (27.0-33.0); MEAN CORPUSCULAR HGB CONC 33.9 g/dl (32.0-36.5); MEAN CORPUSCULAR VOLUME 103.9 fl (80.0-96.0); MONO # 0.4 10^3/uL (0.0-0.8); NEUTROPHILS # 9.3 10^3/uL (1.5-8.5); NEUTROPHILS % 89.4 % (36.0-66.0); RED BLOOD COUNT 3.04 10^6/uL (4.00-5.40); WHITE BLOOD COUNT 10.4 10^3/uL (4.0-10.0)
[2021-11-29 07:43] LABS: PLATELET COUNT, AUTOMATED 96 10^3/uL (150-450)
[2021-11-29 07:52] LABS: INR 2.07; PROTHROMBIN TIME 23.7 SECONDS (12.7-14.5)
[2021-11-29 07:53] LABS: PARTIAL THROMBOPLASTIN TIME 45.4 SECONDS (25.9-37.0)
[2021-11-29 08:17] LABS: ALBUMIN 1.7 GM/DL (3.2-5.2); ALT/SGPT 24 U/L (12-78); BILIRUBIN,DIRECT 0.2 MG/DL (0.0-0.2); BILIRUBIN,TOTAL 0.3 MG/DL (0.2-1.0); BLOOD UREA NITROGEN 37 MG/DL (7-18); CALCIUM LEVEL 7.5 MG/DL (8.8-10.2); CARBON DIOXIDE LEVEL 20 MEQ/L (21-32); CHLORIDE LEVEL 114 MEQ/L (98-107); CREATININE FOR GFR 0.76 MG/DL (0.55-1.30); FREE T3 < 0.5 PG/ML (2.2-4.0); FREE T4 0.95 NG/DL (0.76-1.46); GLOMERULAR FILTRATION RATE > 60.0 (>39); GLUCOSE, FASTING 161 MG/DL (70-100); PHOSPHORUS LEVEL 3.8 MG/DL (2.5-4.9); POTASSIUM SERUM 4.1 MEQ/L (3.5-5.1); SODIUM LEVEL 142 MEQ/L (136-145); TOTAL PROTEIN 4.4 GM/DL (6.4-8.2)
[2021-11-29] MEDS: FUROSEMIDE 40MG/4ML VIAL (J1940) IV SCH ×2 (08:53→16:30)
[2021-11-29] MEDS: HumaLOG INSULIN (NovoLOG) PER UNIT SC SCH ×4 (08:53→20:57)
[2021-11-29] MEDS: SODIUM CHLORIDE 0.9% INJ 10 ML SYR IV SCH ×2 (08:53→23:16)
[2021-11-29] MEDS: DOXYCYCLINE HYCLATE 100 MG in D5W MINI-BAG PLUS 100 ML IV SCH ×2 (08:54→20:44)
[2021-11-29] MEDS: dexameTHASONE 4 MG/ML 1ML VIAL (J1100 PER 1MG) IV SCH (08:55)
[2021-11-29] MEDS: IPRATROPIUM 0.5MG/ALBUTEROL 2.5MG INH SOL UD 3ML (DUONEB) NEB SCH ×4 (12:00→23:45)
[2021-11-29] MEDS ORDERED: SENNA 8.6 MG TAB (SENOKOT) PO PRN (13:00)
[2021-11-29] MEDS ORDERED: LACTULOSE 20 GM/30 ML SYRUP UD PO PRN (13:00)
[2021-11-29 13:17] LABS: NT-PRO BNP 1410 PG/ML (<125)
[2021-11-29 14:07] LABS: LDH LACTATE DEHYDROGENASE 316 U/L (84-246)
[2021-11-29] MEDS: CEFEPIME HCL 2 GM in D5W MINI-BAG PLUS 50 ML IV SCH ×2 (14:41→23:49)
[2021-11-29] MEDS: OMEPRAZOLE 20MG CAP PO SCH ×2 (14:41→20:44)
[2021-11-29] MEDS: SUCRALFATE 1 GM TAB PO SCH ×2 (14:41→20:44)
[2021-11-29 16:29] LABS: PH BODY FLUID 7.699 UNITS (NOT ESTABLISHED); SOURCE, BODY FLUID pH PLEURAL
[2021-11-29 16:54] LABS: AMYLASE, BODY FLUID 10 U/L (NOT ESTABLISHED); CHOLESTEROL, BODY FLUID < 50 MG/DL (NOT ESTABLISHED); LDH, BODY FLUID 51 U/L (NOT ESTABLISHED); SOURCE, BODY FLUID ALBUMIN PLEURAL; SOURCE, BODY FLUID AMYLASE PLEURAL; SOURCE, BODY FLUID CHOL PLEURAL; SOURCE, BODY FLUID GLUCOSE PLEURAL; SOURCE, BODY FLUID LDH PLEURAL; SOURCE, BODY FLUID TOT PROTEIN PLEURAL; SOURCE, BODY FLUID TRIG PLEURAL; TOTAL PROTEIN, BODY FLUID 0.9 G/DL (NOT ESTABLISHED); TRIGLYCERIDE, BODY FLUID 10 MG/DL (NOT ESTABLISHED)
[2021-11-29 16:55] LABS: APPEARANCE, BODY FLUID HAZY (CLEAR); PLEURAL FL COLOR PALE YELLOW (COLORLESS); SOURCE, BODY FLUID PLEURAL
[2021-11-29] MEDS ORDERED: cefTRIAXone SOD 2 GM in D5W MINI-BAG PLUS 50 ML IV SCH (18:00)
[2021-11-29] MEDS: APIXABAN 5 MG TAB (ELIQUIS) PO SCH (20:44)
[2021-11-29] MEDS ORDERED: ENOXAPARIN 80MG/0.8ML SYRINGE (J1650 PER 10MG) SC SCH (21:00)
[2021-11-29] MEDS: REMDESIVIR 100 MG in NS 250 ML IV SCH (21:57)
[2021-11-30] VITALS (10 sets, daily range): BP systolic 104–137; BP diastolic 51–64; O2SAT 90–96
[2021-11-30] MEDS: IPRATROPIUM 0.5MG/ALBUTEROL 2.5MG INH SOL UD 3ML (DUONEB) NEB SCH ×4 (04:28→19:44)
[2021-11-30] MEDS: LEVOTHYROXINE 112MCG TABLET (0.112MG) PO SCH (05:23)
[2021-11-30] MEDS: CEFEPIME HCL 2 GM in D5W MINI-BAG PLUS 50 ML IV SCH ×3 (05:23→23:31)
[2021-11-30 07:11] LABS: BASO % 0.1 % (0.0-1.0); HEMATOCRIT 29.3 % (36.0-47.0); LYMPH # 0.6 10^3/uL (1.5-5.0); LYMPH % 4.6 % (24.0-44.0); MEAN CORPUSCULAR HEMOGLOBIN 34.7 pg (27.0-33.0); MEAN CORPUSCULAR HGB CONC 34.1 g/dl (32.0-36.5); MEAN CORPUSCULAR VOLUME 101.7 fl (80.0-96.0); MONO # 0.4 10^3/uL (0.0-0.8); MONO % 3.1 % (2.0-8.0); NEUTROPHILS # 11.3 10^3/uL (1.5-8.5); NEUTROPHILS % 91.9 % (36.0-66.0); RED BLOOD COUNT 2.88 10^6/uL (4.00-5.40); WHITE BLOOD COUNT 12.3 10^3/uL (4.0-10.0)
[2021-11-30 07:14] LABS: PLATELET COUNT, AUTOMATED 89 10^3/uL (150-450)
[2021-11-30] MEDS: HumaLOG INSULIN (NovoLOG) PER UNIT SC SCH ×4 (07:30→19:58)
[2021-11-30 07:36] LABS: ALBUMIN 1.6 GM/DL (3.2-5.2); ALT/SGPT 29 U/L (12-78); BILIRUBIN,TOTAL 0.6 MG/DL (0.2-1.0); BLOOD UREA NITROGEN 39 MG/DL (7-18); C REACTIVE PROTEIN QUANTITATIV 5.99 MG/DL (0.00-0.30); CALCIUM LEVEL 7.4 MG/DL (8.8-10.2); CARBON DIOXIDE LEVEL 21 MEQ/L (21-32); CHLORIDE LEVEL 115 MEQ/L (98-107); CREATININE FOR GFR 0.84 MG/DL (0.55-1.30); GLOMERULAR FILTRATION RATE > 60.0 (>39); GLUCOSE, FASTING 115 MG/DL (70-100); MAGNESIUM LEVEL 1.8 MG/DL (1.8-2.4); PHOSPHORUS LEVEL 3.1 MG/DL (2.5-4.9); POTASSIUM SERUM 3.6 MEQ/L (3.5-5.1); SODIUM LEVEL 143 MEQ/L (136-145); TOTAL PROTEIN 4.2 GM/DL (6.4-8.2)
[2021-11-30] MEDS: dexameTHASONE 4 MG/ML 1ML VIAL (J1100 PER 1MG) IV SCH (08:47)
[2021-11-30] MEDS: APIXABAN 5 MG TAB (ELIQUIS) PO SCH ×2 (08:48→20:16)
[2021-11-30] MEDS: DOXYCYCLINE HYCLATE 100 MG in D5W MINI-BAG PLUS 100 ML IV SCH ×2 (08:48→20:15)
[2021-11-30] MEDS: SUCRALFATE 1 GM TAB PO SCH ×2 (08:48→20:16)
[2021-11-30] MEDS: OMEPRAZOLE 20MG CAP PO SCH ×2 (08:48→20:15)
[2021-11-30] MEDS: SODIUM CHLORIDE 0.9% INJ 10 ML SYR IV SCH ×2 (08:49→23:31)
[2021-11-30] MEDS: FUROSEMIDE 40MG/4ML VIAL (J1940) IV SCH ×2 (08:50→17:22)
[2021-11-30] MEDS: LACTULOSE 20 GM/30 ML SYRUP UD PO SCH ×3 (13:12→20:16)
[2021-11-30] MEDS: REMDESIVIR 100 MG in NS 250 ML IV SCH (21:56)
[2021-12-01] VITALS (13 sets, daily range): BP systolic 114–155; BP diastolic 58–87; O2SAT 90–98
[2021-12-01] MEDS: IPRATROPIUM 0.5MG/ALBUTEROL 2.5MG INH SOL UD 3ML (DUONEB) NEB SCH ×6 (04:00→23:26)
[2021-12-01 05:35] LABS: BASO % 0.1 % (0.0-1.0); HEMATOCRIT 28.2 % (36.0-47.0); HEMOGLOBIN 9.6 g/dl (12.0-15.5); LYMPH # 0.5 10^3/uL (1.5-5.0); LYMPH % 5.9 % (24.0-44.0); MEAN CORPUSCULAR HEMOGLOBIN 34.8 pg (27.0-33.0); MEAN CORPUSCULAR VOLUME 102.2 fl (80.0-96.0); MONO # 0.3 10^3/uL (0.0-0.8); MONO % 3.8 % (2.0-8.0); NEUTROPHILS # 7.4 10^3/uL (1.5-8.5); NEUTROPHILS % 89.7 % (36.0-66.0); RED BLOOD COUNT 2.76 10^6/uL (4.00-5.40); WHITE BLOOD COUNT 8.3 10^3/uL (4.0-10.0)
[2021-12-01 05:37] LABS: PLATELET COUNT, AUTOMATED 85 10^3/uL (150-450)
[2021-12-01 06:01] LABS: BLOOD UREA NITROGEN 37 MG/DL (7-18); CALCIUM LEVEL 7.5 MG/DL (8.8-10.2); CARBON DIOXIDE LEVEL 21 MEQ/L (21-32); CHLORIDE LEVEL 113 MEQ/L (98-107); GLOMERULAR FILTRATION RATE > 60.0 (>39); GLUCOSE, FASTING 114 MG/DL (70-100); MAGNESIUM LEVEL 1.7 MG/DL (1.8-2.4); PHOSPHORUS LEVEL 2.9 MG/DL (2.5-4.9); POTASSIUM SERUM 3.5 MEQ/L (3.5-5.1); SODIUM LEVEL 142 MEQ/L (136-145)
[2021-12-01] MEDS: LEVOTHYROXINE 112MCG TABLET (0.112MG) PO SCH (06:25)
[2021-12-01] MEDS: CEFEPIME HCL 2 GM in D5W MINI-BAG PLUS 50 ML IV SCH ×3 (06:25→23:44)
[2021-12-01] MEDS: DOXYCYCLINE HYCLATE 100 MG in D5W MINI-BAG PLUS 100 ML IV SCH ×2 (09:18→21:36)
[2021-12-01] MEDS: SUCRALFATE 1 GM TAB PO SCH ×2 (09:18→21:37)
[2021-12-01] MEDS: OMEPRAZOLE 20MG CAP PO SCH ×2 (09:18→21:37)
[2021-12-01] MEDS: HumaLOG INSULIN (NovoLOG) PER UNIT SC SCH ×4 (09:18→21:36)
[2021-12-01] MEDS: APIXABAN 5 MG TAB (ELIQUIS) PO SCH ×2 (09:19→21:37)
[2021-12-01] MEDS: LACTULOSE 20 GM/30 ML SYRUP UD PO SCH ×4 (09:19→21:00)
[2021-12-01] MEDS: SODIUM CHLORIDE 0.9% INJ 10 ML SYR IV SCH ×2 (09:21→23:45)
[2021-12-01] MEDS: dexameTHASONE 4 MG/ML 1ML VIAL (J1100 PER 1MG) IV SCH (09:21)
[2021-12-01] MEDS: FUROSEMIDE 40MG/4ML VIAL (J1940) IV SCH (09:21)
[2021-12-01] MEDS ORDERED: POTASSIUM CHLORIDE 10MEQ SR TABLET PO ONE (13:20)
[2021-12-01] MEDS ORDERED: MAGNESIUM OXIDE 400MG TAB (MAG-OX) PO ONE (13:20)
[2021-12-01 13:51] LABS: SPEC. GRAVITY BODY FLUIDS 1.009 (NOT ESTABLISHED)
[2021-12-01 13:56] LABS: APPEARANCE, BODY FLUID CLEAR (CLEAR); ASCITES FL COLOR PALE YELLOW (COLORLESS); SOURCE, BODY FLUID ASCITES
[2021-12-01 14:19] LABS: SOURCE, BODY FLUID ALBUMIN ASCITES
[2021-12-01 14:30] LABS: SOURCE, BODY FLUID GLUCOSE ASCITES; SOURCE, BODY FLUID TOT PROTEIN ASCITES; TOTAL PROTEIN, BODY FLUID 0.5 G/DL (NOT ESTABLISHED)
[2021-12-01] MEDS: guaiFENesin DM LIQ 10ML UD PO PRN (14:56)
[2021-12-01 16:08] LABS: BODY FLUID CULTURE Not indicated. (.); LEGIONELLA ANTIGEN URINE Negative (Negative); ORGANISM ID Not indicated. (.); SPECIMEN SOURCE Urine (.); URINE STREP PNEUMONIAE ANTIGEN Positive (Negative)
[2021-12-02] VITALS (27 sets, daily range): BP systolic 120–144; BP diastolic 60–67; O2SAT 86–100
[2021-12-02] MEDS: SODIUM CHLORIDE 0.9% INJ 10 ML SYR IV PRN ×2 (00:33→06:22)
[2021-12-02] MEDS: IPRATROPIUM 0.5MG/ALBUTEROL 2.5MG INH SOL UD 3ML (DUONEB) NEB SCH ×6 (03:03→23:52)
[2021-12-02] MEDS: LEVOTHYROXINE 112MCG TABLET (0.112MG) PO SCH (05:29)
[2021-12-02] MEDS: CEFEPIME HCL 2 GM in D5W MINI-BAG PLUS 50 ML IV SCH (05:29)
[2021-12-02 08:04] LABS: BASO % 0.2 % (0.0-1.0); HEMOGLOBIN 10.5 g/dl (12.0-15.5); LYMPH # 0.6 10^3/uL (1.5-5.0); LYMPH % 9.8 % (24.0-44.0); MEAN CORPUSCULAR HEMOGLOBIN 34.8 pg (27.0-33.0); MEAN CORPUSCULAR HGB CONC 33.9 g/dl (32.0-36.5); MEAN CORPUSCULAR VOLUME 102.6 fl (80.0-96.0); MONO # 0.3 10^3/uL (0.0-0.8); MONO % 5.3 % (2.0-8.0); NEUTROPHILS # 4.8 10^3/uL (1.5-8.5); PLATELET COUNT, AUTOMATED 79 10^3/uL (150-450); RED BLOOD COUNT 3.02 10^6/uL (4.00-5.40); WHITE BLOOD COUNT 5.7 10^3/uL (4.0-10.0)
[2021-12-02 08:32] LABS: ALBUMIN 1.7 GM/DL (3.2-5.2); ALT/SGPT 35 U/L (12-78); BILIRUBIN,TOTAL 0.9 MG/DL (0.2-1.0); BLOOD UREA NITROGEN 36 MG/DL (7-18); C REACTIVE PROTEIN QUANTITATIV 5.27 MG/DL (0.00-0.30); CALCIUM LEVEL 7.9 MG/DL (8.8-10.2); CARBON DIOXIDE LEVEL 22 MEQ/L (21-32); CHLORIDE LEVEL 110 MEQ/L (98-107); CREATININE FOR GFR 0.75 MG/DL (0.55-1.30); GLOMERULAR FILTRATION RATE > 60.0 (>39); GLUCOSE, FASTING 127 MG/DL (70-100); MAGNESIUM LEVEL 1.8 MG/DL (1.8-2.4); PHOSPHORUS LEVEL 2.9 MG/DL (2.5-4.9); POTASSIUM SERUM 3.5 MEQ/L (3.5-5.1); SODIUM LEVEL 139 MEQ/L (136-145); TOTAL PROTEIN 4.8 GM/DL (6.4-8.2)
[2021-12-02] MEDS: APIXABAN 5 MG TAB (ELIQUIS) PO SCH ×2 (08:41→22:12)
[2021-12-02] MEDS: LACTULOSE 20 GM/30 ML SYRUP UD PO SCH ×4 (08:42→21:00)
[2021-12-02] MEDS: OMEPRAZOLE 20MG CAP PO SCH ×2 (08:42→22:12)
[2021-12-02] MEDS: FUROSEMIDE 40 MG TAB PO SCH (08:42)
[2021-12-02] MEDS: dexameTHASONE 4 MG/ML 1ML VIAL (J1100 PER 1MG) IV SCH (08:43)
[2021-12-02] MEDS: SUCRALFATE 1 GM TAB PO SCH ×2 (08:43→22:12)
[2021-12-02] MEDS: DOXYCYCLINE HYCLATE 100 MG in D5W MINI-BAG PLUS 100 ML IV SCH (08:43)
[2021-12-02] MEDS: guaiFENesin DM LIQ 10ML UD PO PRN ×2 (08:43→22:12)
[2021-12-02] MEDS: HumaLOG INSULIN (NovoLOG) PER UNIT SC SCH ×4 (08:43→21:00)
[2021-12-02] MEDS: SODIUM CHLORIDE 0.9% INJ 10 ML SYR IV SCH ×2 (10:43→21:53)
[2021-12-02] MEDS ORDERED: LevoFLOXacin 750 MG TABLET PO SCH (13:40)
[2021-12-02] MEDS: AUGMENTIN 875 MG TAB PO SCH (22:11)
[2021-12-03] VITALS (15 sets, daily range): BP systolic 118–131; BP diastolic 62–89; O2SAT 90–100
[2021-12-03] MEDS: IPRATROPIUM 0.5MG/ALBUTEROL 2.5MG INH SOL UD 3ML (DUONEB) NEB SCH ×5 (05:10→19:57)
[2021-12-03] MEDS: LEVOTHYROXINE 112MCG TABLET (0.112MG) PO SCH (06:25)
[2021-12-03 07:33] LABS: HEMATOCRIT 31.6 % (36.0-47.0); HEMOGLOBIN 10.9 g/dl (12.0-15.5); LYMPH # 0.5 10^3/uL (1.5-5.0); LYMPH % 8.2 % (24.0-44.0); MEAN CORPUSCULAR HEMOGLOBIN 35.3 pg (27.0-33.0); MEAN CORPUSCULAR HGB CONC 34.5 g/dl (32.0-36.5); MEAN CORPUSCULAR VOLUME 102.3 fl (80.0-96.0); MONO # 0.4 10^3/uL (0.0-0.8); MONO % 7.4 % (2.0-8.0); NEUTROPHILS % 83.7 % (36.0-66.0); PLATELET COUNT, AUTOMATED 85 10^3/uL (150-450); RED BLOOD COUNT 3.09 10^6/uL (4.00-5.40)
[2021-12-03 07:50] LABS: BLOOD UREA NITROGEN 35 MG/DL (7-18); CALCIUM LEVEL 7.9 MG/DL (8.8-10.2); CARBON DIOXIDE LEVEL 22 MEQ/L (21-32); CHLORIDE LEVEL 108 MEQ/L (98-107); CREATININE FOR GFR 0.78 MG/DL (0.55-1.30); GLOMERULAR FILTRATION RATE > 60.0 (>39); GLUCOSE, FASTING 108 MG/DL (70-100); MAGNESIUM LEVEL 1.9 MG/DL (1.8-2.4); PHOSPHORUS LEVEL 2.6 MG/DL (2.5-4.9); POTASSIUM SERUM 3.5 MEQ/L (3.5-5.1); SODIUM LEVEL 138 MEQ/L (136-145)
[2021-12-03] MEDS: AUGMENTIN 875 MG TAB PO SCH ×2 (08:17→22:30)
[2021-12-03] MEDS: APIXABAN 5 MG TAB (ELIQUIS) PO SCH ×2 (08:18→22:31)
[2021-12-03] MEDS: SUCRALFATE 1 GM TAB PO SCH ×2 (08:18→22:30)
[2021-12-03] MEDS: LACTULOSE 20 GM/30 ML SYRUP UD PO SCH ×4 (08:18→22:31)
[2021-12-03] MEDS: FUROSEMIDE 40 MG TAB PO SCH (08:19)
[2021-12-03] MEDS: OMEPRAZOLE 20MG CAP PO SCH ×2 (08:19→22:30)
[2021-12-03] MEDS: dexameTHASONE 4 MG/ML 1ML VIAL (J1100 PER 1MG) IV SCH (08:20)
[2021-12-03] MEDS: SODIUM CHLORIDE 0.9% INJ 10 ML SYR IV SCH ×2 (08:21→12:40)
[2021-12-03] MEDS: HumaLOG INSULIN (NovoLOG) PER UNIT SC SCH ×4 (08:39→21:00)
[2021-12-03] MEDS: REMDESIVIR 100 MG in NS 250 ML IV SCH (12:31)
[2021-12-03] MEDS ORDERED: IBUPROFEN 400MG TAB PO ONE (17:35)
[2021-12-04] VITALS (31 sets, daily range): BP systolic 111–150; BP diastolic 57–68; O2SAT 95–97
[2021-12-04] MEDS: IPRATROPIUM 0.5MG/ALBUTEROL 2.5MG INH SOL UD 3ML (DUONEB) NEB SCH ×6 (00:33→20:00)
[2021-12-04] MEDS: LEVOTHYROXINE 112MCG TABLET (0.112MG) PO SCH (05:21)
[2021-12-04] MEDS: HumaLOG INSULIN (NovoLOG) PER UNIT SC SCH ×4 (07:30→20:41)
[2021-12-04] MEDS: AUGMENTIN 875 MG TAB PO SCH ×2 (08:24→23:22)
[2021-12-04] MEDS: SUCRALFATE 1 GM TAB PO SCH ×2 (08:24→20:40)
[2021-12-04] MEDS: APIXABAN 5 MG TAB (ELIQUIS) PO SCH ×2 (08:25→20:40)
[2021-12-04] MEDS: FUROSEMIDE 40 MG TAB PO SCH (08:25)
[2021-12-04] MEDS: LACTULOSE 20 GM/30 ML SYRUP UD PO SCH ×4 (08:25→20:40)
[2021-12-04] MEDS: dexameTHASONE 4 MG/ML 1ML VIAL (J1100 PER 1MG) IV SCH (08:26)
[2021-12-04] MEDS: OMEPRAZOLE 20MG CAP PO SCH ×2 (08:26→20:40)
[2021-12-04] MEDS: SODIUM CHLORIDE 0.9% INJ 10 ML SYR IV SCH ×2 (08:27→13:10)
[2021-12-04 09:38] LABS: HEMOGLOBIN 12.3 g/dl (12.0-15.5); MEAN CORPUSCULAR HEMOGLOBIN 34.9 pg (27.0-33.0); MEAN CORPUSCULAR HGB CONC 34.2 g/dl (32.0-36.5); MEAN CORPUSCULAR VOLUME 102.3 fl (80.0-96.0); PLATELET COUNT, AUTOMATED 114 10^3/uL (150-450); RED BLOOD COUNT 3.52 10^6/uL (4.00-5.40); WHITE BLOOD COUNT 7.9 10^3/uL (4.0-10.0)
[2021-12-04 09:58] LABS: BLOOD UREA NITROGEN 36 MG/DL (7-18); C REACTIVE PROTEIN QUANTITATIV 2.66 MG/DL (0.00-0.30); CALCIUM LEVEL 8.1 MG/DL (8.8-10.2); CARBON DIOXIDE LEVEL 22 MEQ/L (21-32); CHLORIDE LEVEL 108 MEQ/L (98-107); CREATININE FOR GFR 0.83 MG/DL (0.55-1.30); GLOMERULAR FILTRATION RATE > 60.0 (>39); GLUCOSE, FASTING 143 MG/DL (70-100); PHOSPHORUS LEVEL 2.8 MG/DL (2.5-4.9); POTASSIUM SERUM 3.7 MEQ/L (3.5-5.1); SODIUM LEVEL 139 MEQ/L (136-145)
[2021-12-04] MEDS: REMDESIVIR 100 MG in NS 250 ML IV SCH (13:06)
[2021-12-04] MEDS ORDERED: MIDAZOLAM INJ 2MG/2ML VIAL (J2250 PER 1MG) As Ordered ONE (16:58)
[2021-12-04] MEDS ORDERED: flumazeniL 0.5 MG/5 ML VIAL As Ordered ONE (16:59)
[2021-12-04] MEDS ORDERED: LIDOCAINE 1% MDV 20ML VIAL As Ordered ONE (17:15)
[2021-12-04] MEDS ORDERED: ONDANSETRON 4MG/2ML VIAL IV PRN (18:20)
[2021-12-04] MEDS ORDERED: LEVALBUTEROL 1.25 MG/0.5 ML CONCENTRATE NEB NEB PRN (18:20)
[2021-12-04] MEDS ORDERED: BISACODYL 10 MG SUPP PR PRN (18:20)
[2021-12-04] MEDS ORDERED: MIDAZOLAM INJ 2MG/2ML VIAL (J2250 PER 1MG) IV ONE (18:50)
[2021-12-04] MEDS ORDERED: LIDOCAINE 1% MDV 20ML VIAL SC ONE (18:50)
[2021-12-04] MEDS: LEVALBUTEROL 1.25 MG/0.5 ML CONCENTRATE NEB NEB SCH (19:34)
[2021-12-04 19:37] LABS: APPEARANCE, BODY FLUID CLEAR (CLEAR); PLEURAL FL COLOR PALE YELLOW (COLORLESS); SOURCE, BODY FLUID PLEURAL
[2021-12-04 19:42] LABS: PH BODY FLUID 7.567 UNITS (NOT ESTABLISHED); SOURCE, BODY FLUID pH PLEURAL
[2021-12-04 19:56] LABS: AMYLASE, BODY FLUID 6 U/L (NOT ESTABLISHED); CHOLESTEROL, BODY FLUID < 50 MG/DL (NOT ESTABLISHED); LDH, BODY FLUID 66 U/L (NOT ESTABLISHED); SOURCE, BODY FLUID ALBUMIN PLEURAL; SOURCE, BODY FLUID AMYLASE PLEURAL; SOURCE, BODY FLUID CHOL PLEURAL; SOURCE, BODY FLUID GLUCOSE PLEURAL; SOURCE, BODY FLUID LDH PLEURAL; SOURCE, BODY FLUID TOT PROTEIN PLEURAL; TOTAL PROTEIN, BODY FLUID 0.9 G/DL (NOT ESTABLISHED); TRIGLYCERIDE, BODY FLUID 8 MG/DL (NOT ESTABLISHED)
[2021-12-04 19:57] LABS: SOURCE, BODY FLUID TRIG PLEURAL
[2021-12-04] MEDS: DOCUSATE SODIUM 100MG CAPSULE PO SCH (20:40)
[2021-12-04] MEDS ORDERED: ACETAMINOPHEN TAB 650MG DOSE (2X325MG) PO ONE (23:30)
[2021-12-05] VITALS (29 sets, daily range): BP systolic 105–151; BP diastolic 54–70
[2021-12-05] MEDS: LEVALBUTEROL 1.25 MG/0.5 ML CONCENTRATE NEB NEB SCH ×4 (02:00→19:22)
[2021-12-05] MEDS: IPRATROPIUM 0.5MG/ALBUTEROL 2.5MG INH SOL UD 3ML (DUONEB) NEB SCH ×6 (04:00→19:23)
[2021-12-05 04:59] LABS: LYMPH # 0.4 10^3/uL (1.5-5.0); LYMPH % 4.9 % (24.0-44.0); MEAN CORPUSCULAR HEMOGLOBIN 35.7 pg (27.0-33.0); MEAN CORPUSCULAR HGB CONC 35.2 g/dl (32.0-36.5); MEAN CORPUSCULAR VOLUME 101.4 fl (80.0-96.0); MONO # 0.7 10^3/uL (0.0-0.8); MONO % 9.2 % (2.0-8.0); NEUTROPHILS # 6.4 10^3/uL (1.5-8.5); NEUTROPHILS % 85.1 % (36.0-66.0); RED BLOOD COUNT 2.86 10^6/uL (4.00-5.40); WHITE BLOOD COUNT 7.5 10^3/uL (4.0-10.0)
[2021-12-05 05:01] LABS: PLATELET COUNT, AUTOMATED 71 10^3/uL (150-450)
[2021-12-05 05:02] LABS: HEMOGLOBIN 10.2 g/dl (12.0-15.5)
[2021-12-05 05:24] LABS: BLOOD UREA NITROGEN 36 MG/DL (7-18); CALCIUM LEVEL 7.9 MG/DL (8.8-10.2); CARBON DIOXIDE LEVEL 21 MEQ/L (21-32); CHLORIDE LEVEL 110 MEQ/L (98-107); CREATININE FOR GFR 0.64 MG/DL (0.55-1.30); GLOMERULAR FILTRATION RATE > 60.0 (>39); GLUCOSE, FASTING 120 MG/DL (70-100); MAGNESIUM LEVEL 1.9 MG/DL (1.8-2.4); PHOSPHORUS LEVEL 2.6 MG/DL (2.5-4.9); POTASSIUM SERUM 3.9 MEQ/L (3.5-5.1); SODIUM LEVEL 138 MEQ/L (136-145)
[2021-12-05] MEDS: LEVOTHYROXINE 112MCG TABLET (0.112MG) PO SCH (05:26)
[2021-12-05 06:01] LABS: ABG BASE EXCESS -6.6 (-2.0-2.0); ABG HCO3 15.9 MEQ/L (22.0-26.0); ABG O2 SATURATION 93.7 % (95.0-99.0); ABG PARTIAL PRESSURE CO2 23.7 mmHg (35.0-45.0); ABG PARTIAL PRESSURE O2 71.6 mmHg (75.0-100.0); ABG TOTAL CO2 16.6 MEQ/L (23.0-31.0); ABG pH (ARTERIAL) 7.445 UNITS (7.350-7.450)
[2021-12-05] MEDS: HumaLOG INSULIN (NovoLOG) PER UNIT SC SCH ×4 (07:30→20:28)
[2021-12-05] MEDS ORDERED: NORCO, ANEXSIA 5/325MG TABLET (HYDROcodone/ACETAMINOPHEN) PO ONE (07:45)
[2021-12-05 08:14] LABS: ALBUMIN 1.6 GM/DL (3.2-5.2); ALT/SGPT 44 U/L (12-78); BILIRUBIN,DIRECT 0.3 MG/DL (0.0-0.2); BILIRUBIN,TOTAL 0.6 MG/DL (0.2-1.0); TOTAL PROTEIN 4.1 GM/DL (6.4-8.2)
[2021-12-05] MEDS: OMEPRAZOLE 20MG CAP PO SCH ×2 (08:58→20:23)
[2021-12-05] MEDS: FUROSEMIDE 40 MG TAB PO SCH (08:58)
[2021-12-05] MEDS: SUCRALFATE 1 GM TAB PO SCH ×2 (08:58→20:23)
[2021-12-05] MEDS: dexameTHASONE 4 MG/ML 1ML VIAL (J1100 PER 1MG) IV SCH (08:59)
[2021-12-05] MEDS: DOCUSATE SODIUM 100MG CAPSULE PO SCH ×2 (09:00→20:23)
[2021-12-05] MEDS: MOM 30ML SUSPENSION UDC PO SCH (09:00)
[2021-12-05] MEDS: AUGMENTIN 875 MG TAB PO SCH (09:02)
[2021-12-05] MEDS: LACTULOSE 20 GM/30 ML SYRUP UD PO SCH ×4 (09:02→20:23)
[2021-12-05] MEDS: SODIUM CHLORIDE 0.9% INJ 10 ML SYR IV SCH (09:11)
[2021-12-05 11:11] LABS: SPEC. GRAVITY BODY FLUIDS 1.007 (NOT ESTABLISHED)
[2021-12-05 11:17] LABS: APPEARANCE, BODY FLUID CLEAR (CLEAR); PERITONEAL FL COLOR PALE YELLOW (COLORLESS); SOURCE, BODY FLUID PERITONEAL
[2021-12-05 11:27] LABS: SOURCE, BODY FLUID ALBUMIN PERITONEAL; SOURCE, BODY FLUID GLUCOSE PERITONEAL; SOURCE, BODY FLUID TOT PROTEIN PERITONEAL; TOTAL PROTEIN, BODY FLUID 0.3 G/DL (NOT ESTABLISHED)
[2021-12-05] MEDS ORDERED: PERCOCET 5MG/325MG TAB PO ONE (11:30)
[2021-12-05] MEDS ORDERED: IPRATROPIUM 0.5MG/ALBUTEROL 2.5MG INH SOL UD 3ML (DUONEB) NEB PRN (19:35)
[2021-12-05] MEDS: PERCOCET 5MG/325MG TAB PO PRN (20:28)
[2021-12-06] MEDS: LEVALBUTEROL 1.25 MG/0.5 ML CONCENTRATE NEB NEB SCH ×4 (00:51→19:24)
[2021-12-06] MEDS: LEVOTHYROXINE 112MCG TABLET (0.112MG) PO SCH (05:09)
[2021-12-06 05:51] LABS: BASO % 0.1 % (0.0-1.0); HEMATOCRIT 30.7 % (36.0-47.0); HEMOGLOBIN 10.4 g/dl (12.0-15.5); LYMPH # 0.5 10^3/uL (1.5-5.0); LYMPH % 5.3 % (24.0-44.0); MEAN CORPUSCULAR HEMOGLOBIN 35.4 pg (27.0-33.0); MEAN CORPUSCULAR HGB CONC 33.9 g/dl (32.0-36.5); MEAN CORPUSCULAR VOLUME 104.4 fl (80.0-96.0); MONO # 0.9 10^3/uL (0.0-0.8); MONO % 9.2 % (2.0-8.0); NEUTROPHILS # 7.7 10^3/uL (1.5-8.5); NEUTROPHILS % 84.3 % (36.0-66.0); RED BLOOD COUNT 2.94 10^6/uL (4.00-5.40); WHITE BLOOD COUNT 9.2 10^3/uL (4.0-10.0)
[2021-12-06 05:52] LABS: PLATELET COUNT, AUTOMATED 83 10^3/uL (150-450)
[2021-12-06 06:00] VITALS: BP 140/65
[2021-12-06] MEDS: MOM 30ML SUSPENSION UDC PO SCH (09:00)
[2021-12-06] MEDS: SUCRALFATE 1 GM TAB PO SCH ×2 (09:11→20:53)
[2021-12-06] MEDS: OMEPRAZOLE 20MG CAP PO SCH ×2 (09:11→20:53)
[2021-12-06] MEDS: HumaLOG INSULIN (NovoLOG) PER UNIT SC SCH ×4 (09:11→20:29)
[2021-12-06] MEDS: FUROSEMIDE 40 MG TAB PO SCH (09:12)
[2021-12-06] MEDS: DOCUSATE SODIUM 100MG CAPSULE PO SCH ×2 (09:12→20:29)
[2021-12-06] MEDS: dexameTHASONE 4 MG/ML 1ML VIAL (J1100 PER 1MG) IV SCH (09:12)
[2021-12-06] MEDS: LACTULOSE 20 GM/30 ML SYRUP UD PO SCH ×4 (09:13→20:29)
[2021-12-06] MEDS: SODIUM CHLORIDE 0.9% INJ 10 ML SYR IV SCH (09:13)
[2021-12-06] MEDS: PERCOCET 5MG/325MG TAB PO PRN (11:01)
[2021-12-06 13:05] VITALS: BP 130/58
[2021-12-06 14:00] VITALS: BP 110/64
[2021-12-06] MEDS: FUROSEMIDE injection 250 MG in D5W 225 ML IV SCH (14:32)
[2021-12-06 21:17] LABS: CALCIUM LEVEL 7.9 MG/DL (8.8-10.2); CREATININE FOR GFR 1.08 MG/DL (0.55-1.30); GLOMERULAR FILTRATION RATE 53.1 (>39); POTASSIUM SERUM 3.9 MEQ/L (3.5-5.1)
[2021-12-06 22:00] VITALS: BP 120/60
[2021-12-07] MEDS: LEVALBUTEROL 1.25 MG/0.5 ML CONCENTRATE NEB NEB SCH ×4 (02:00→19:36)
[2021-12-07 04:00] VITALS: BP 114/70
[2021-12-07] MEDS: LEVOTHYROXINE 112MCG TABLET (0.112MG) PO SCH (05:09)
[2021-12-07 06:25] LABS: BASO % 0.1 % (0.0-1.0); EOS % 0.1 % (0.0-3.0); HEMOGLOBIN 9.8 g/dl (12.0-15.5); LYMPH # 0.5 10^3/uL (1.5-5.0); LYMPH % 6.3 % (24.0-44.0); MEAN CORPUSCULAR HGB CONC 33.8 g/dl (32.0-36.5); MEAN CORPUSCULAR VOLUME 103.6 fl (80.0-96.0); MONO # 0.6 10^3/uL (0.0-0.8); MONO % 7.3 % (2.0-8.0); NEUTROPHILS % 85.4 % (36.0-66.0); WHITE BLOOD COUNT 8.3 10^3/uL (4.0-10.0)
[2021-12-07 06:27] LABS: PLATELET COUNT, AUTOMATED 64 10^3/uL (150-450)
[2021-12-07 06:39] LABS: CREATININE FOR GFR 1.04 MG/DL (0.55-1.30); GLOMERULAR FILTRATION RATE 55.5 (>39); POTASSIUM SERUM 3.3 MEQ/L (3.5-5.1)
[2021-12-07 06:40] LABS: CALCIUM LEVEL 7.9 MG/DL (8.8-10.2); MAGNESIUM LEVEL 1.9 MG/DL (1.8-2.4)
[2021-12-07] MEDS: HumaLOG INSULIN (NovoLOG) PER UNIT SC SCH ×4 (07:30→21:00)
[2021-12-07] MEDS: SODIUM CHLORIDE 0.9% INJ 10 ML SYR IV SCH (09:00)
[2021-12-07] MEDS: DOCUSATE SODIUM 100MG CAPSULE PO SCH ×2 (09:00→21:04)
[2021-12-07] MEDS: MOM 30ML SUSPENSION UDC PO SCH (09:00)
[2021-12-07] MEDS: PERCOCET 5MG/325MG TAB PO PRN ×3 (09:48→21:03)
[2021-12-07] MEDS: OMEPRAZOLE 20MG CAP PO SCH ×2 (09:48→21:05)
[2021-12-07] MEDS: SUCRALFATE 1 GM TAB PO SCH ×2 (09:48→21:04)
[2021-12-07] MEDS: LACTULOSE 20 GM/30 ML SYRUP UD PO SCH ×4 (09:48→21:04)
[2021-12-07] MEDS: dexameTHASONE 4 MG/ML 1ML VIAL (J1100 PER 1MG) IV SCH (09:49)
[2021-12-07] MEDS ORDERED: PERCOCET 5MG/325MG TAB PO ONE (10:20)
[2021-12-07] MEDS: POTASSIUM CHLORIDE 10MEQ SR TABLET PO SCH ×2 (10:31→21:04)
[2021-12-07] MEDS: SPIRONOLACTONE 25 MG TAB PO SCH ×2 (10:32→17:07)
[2021-12-07 14:00] VITALS: BP 130/60
[2021-12-07] MEDS: FUROSEMIDE injection 250 MG in D5W 225 ML IV SCH (15:45)
[2021-12-07] MEDS ORDERED: MORPHINE 2 MG/ML 1ML VIAL IV ONE (16:15)
[2021-12-07] MEDS ORDERED: MORPHINE 2 MG/ML 1ML VIAL IV PRN (16:20)
[2021-12-07] MEDS: ACETAMINOPHEN TAB 650MG DOSE (2X325MG) PO SCH ×2 (17:07→21:04)
[2021-12-07 18:38] LABS: CALCIUM LEVEL 7.7 MG/DL (8.8-10.2); CREATININE FOR GFR 1.04 MG/DL (0.55-1.30); GLOMERULAR FILTRATION RATE 55.5 (>39); POTASSIUM SERUM 3.9 MEQ/L (3.5-5.1)
[2021-12-07 20:00] VITALS: BP 109/57
[2021-12-07 22:00] VITALS: BP 116/55
[2021-12-07 23:24] VITALS: BP 117/58
[2021-12-08] VITALS (13 sets, daily range): BP systolic 100–134; BP diastolic 51–63; O2SAT 100
[2021-12-08] MEDS: LEVALBUTEROL 1.25 MG/0.5 ML CONCENTRATE NEB NEB SCH ×4 (01:26→19:21)
[2021-12-08] MEDS: LEVOTHYROXINE 112MCG TABLET (0.112MG) PO SCH (05:25)
[2021-12-08] MEDS: PERCOCET 5MG/325MG TAB PO PRN ×2 (07:01→17:49)
[2021-12-08] MEDS: HumaLOG INSULIN (NovoLOG) PER UNIT SC SCH ×4 (07:30→19:57)
[2021-12-08 08:12] LABS: BASO % 0.1 % (0.0-1.0); HEMOGLOBIN 10.7 g/dl (12.0-15.5); LYMPH # 0.5 10^3/uL (1.5-5.0); LYMPH % 4.6 % (24.0-44.0); MEAN CORPUSCULAR HEMOGLOBIN 35.2 pg (27.0-33.0); MEAN CORPUSCULAR HGB CONC 33.4 g/dl (32.0-36.5); MEAN CORPUSCULAR VOLUME 105.3 fl (80.0-96.0); MONO # 0.6 10^3/uL (0.0-0.8); MONO % 5.9 % (2.0-8.0); NEUTROPHILS # 9.6 10^3/uL (1.5-8.5); NEUTROPHILS % 88.7 % (36.0-66.0); RED BLOOD COUNT 3.04 10^6/uL (4.00-5.40); WHITE BLOOD COUNT 10.8 10^3/uL (4.0-10.0)
[2021-12-08 08:13] LABS: PLATELET COUNT, AUTOMATED 67 10^3/uL (150-450)
[2021-12-08] MEDS: SPIRONOLACTONE 25 MG TAB PO SCH ×2 (08:35→17:35)
[2021-12-08] MEDS: LACTULOSE 20 GM/30 ML SYRUP UD PO SCH ×4 (08:35→19:33)
[2021-12-08] MEDS: MOM 30ML SUSPENSION UDC PO SCH (08:35)
[2021-12-08] MEDS: POTASSIUM CHLORIDE 10MEQ SR TABLET PO SCH ×2 (08:36→19:33)
[2021-12-08 08:37] LABS: CALCIUM LEVEL 8.2 MG/DL (8.8-10.2); CREATININE FOR GFR 1.03 MG/DL (0.55-1.30); GLOMERULAR FILTRATION RATE 56.1 (>39); POTASSIUM SERUM 3.8 MEQ/L (3.5-5.1)
[2021-12-08] MEDS: DOCUSATE SODIUM 100MG CAPSULE PO SCH ×2 (08:37→19:33)
[2021-12-08] MEDS: ACETAMINOPHEN TAB 650MG DOSE (2X325MG) PO SCH ×3 (08:37→17:35)
[2021-12-08] MEDS: OMEPRAZOLE 20MG CAP PO SCH ×2 (08:38→19:33)
[2021-12-08] MEDS: SUCRALFATE 1 GM TAB PO SCH ×2 (08:38→19:33)
[2021-12-08] MEDS: dexameTHASONE 4 MG/ML 1ML VIAL (J1100 PER 1MG) IV SCH (08:38)
[2021-12-08] MEDS: SODIUM CHLORIDE 0.9% INJ 10 ML SYR IV SCH (08:42)
[2021-12-08] MEDS ORDERED: ALDA25TA2 PO (09:16)
[2021-12-08] MEDS ORDERED: FURO1INJ14 IV (09:18)
[2021-12-08 13:11] LABS: ALBUMIN 2.2 GM/DL (3.2-5.2); BILIRUBIN,DIRECT 0.3 MG/DL (0.0-0.2); BILIRUBIN,TOTAL 0.6 MG/DL (0.2-1.0); TOTAL PROTEIN 4.6 GM/DL (6.4-8.2)
[2021-12-08] MEDS: FUROSEMIDE injection 250 MG in D5W 225 ML IV SCH (16:04)
[2021-12-08] MEDS: clonazePAM 1 MG TAB PO PRN (17:47)
[2021-12-08] MEDS: APIXABAN 5 MG TAB (ELIQUIS) PO SCH (19:33)
[2021-12-09] VITALS (20 sets, daily range): BP systolic 101–147; BP diastolic 51–67
[2021-12-09] MEDS: ACETAMINOPHEN TAB 650MG DOSE (2X325MG) PO SCH ×2 (00:21→08:34)
[2021-12-09] MEDS: LEVALBUTEROL 1.25 MG/0.5 ML CONCENTRATE NEB NEB SCH ×4 (02:22→19:53)
[2021-12-09] MEDS: LEVOTHYROXINE 112MCG TABLET (0.112MG) PO SCH (06:13)
[2021-12-09] MEDS: PERCOCET 5MG/325MG TAB PO PRN (06:13)
[2021-12-09] MEDS ORDERED: KETOROLAC 30 MG/ML 1ML VIAL IV ONE (07:45)
[2021-12-09] MEDS ORDERED: PERCOCET 5MG/325MG TAB PO ONE (07:45)
[2021-12-09] MEDS ORDERED: metOLazone 5 MG TAB PO ONE (08:00)
[2021-12-09] MEDS: HumaLOG INSULIN (NovoLOG) PER UNIT SC SCH ×4 (08:30→21:00)
[2021-12-09] MEDS: dexameTHASONE 4 MG/ML 1ML VIAL (J1100 PER 1MG) IV SCH (08:31)
[2021-12-09] MEDS: LACTULOSE 20 GM/30 ML SYRUP UD PO SCH ×4 (08:31→21:15)
[2021-12-09] MEDS: MOM 30ML SUSPENSION UDC PO SCH (08:31)
[2021-12-09] MEDS: OMEPRAZOLE 20MG CAP PO SCH ×2 (08:33→21:16)
[2021-12-09] MEDS: SUCRALFATE 1 GM TAB PO SCH ×2 (08:34→21:16)
[2021-12-09] MEDS: APIXABAN 5 MG TAB (ELIQUIS) PO SCH (08:34)
[2021-12-09] MEDS: POTASSIUM CHLORIDE 10MEQ SR TABLET PO SCH ×2 (08:34→21:16)
[2021-12-09] MEDS: DOCUSATE SODIUM 100MG CAPSULE PO SCH ×2 (08:34→21:16)
[2021-12-09] MEDS: SPIRONOLACTONE 25 MG TAB PO SCH ×2 (08:35→17:15)
[2021-12-09] MEDS: SODIUM CHLORIDE 0.9% INJ 10 ML SYR IV SCH (08:44)
[2021-12-09 08:47] LABS: BASO % 0.1 % (0.0-1.0); HEMATOCRIT 28.5 % (36.0-47.0); HEMOGLOBIN 9.5 g/dl (12.0-15.5); LYMPH # 0.5 10^3/uL (1.5-5.0); LYMPH % 5.2 % (24.0-44.0); MEAN CORPUSCULAR HEMOGLOBIN 35.1 pg (27.0-33.0); MEAN CORPUSCULAR HGB CONC 33.3 g/dl (32.0-36.5); MEAN CORPUSCULAR VOLUME 105.2 fl (80.0-96.0); MONO # 0.4 10^3/uL (0.0-0.8); MONO % 3.6 % (2.0-8.0); NEUTROPHILS # 9.2 10^3/uL (1.5-8.5); NEUTROPHILS % 90.5 % (36.0-66.0); RED BLOOD COUNT 2.71 10^6/uL (4.00-5.40); WHITE BLOOD COUNT 10.2 10^3/uL (4.0-10.0)
[2021-12-09 08:48] LABS: PLATELET COUNT, AUTOMATED 58 10^3/uL (150-450)
[2021-12-09 09:11] LABS: CALCIUM LEVEL 8.7 MG/DL (8.8-10.2); CREATININE FOR GFR 1.12 MG/DL (0.55-1.30); GLOMERULAR FILTRATION RATE 50.9 (>39); MAGNESIUM LEVEL 2.3 MG/DL (1.8-2.4); POTASSIUM SERUM 3.7 MEQ/L (3.5-5.1)
[2021-12-09] MEDS: clonazePAM 1 MG TAB PO PRN (11:28)
[2021-12-09] MEDS ORDERED: ACETAMINOPHEN TAB 650MG DOSE (2X325MG) PO PRN (13:10)
[2021-12-09] MEDS: SODIUM CHLORIDE 0.9% INJ 10 ML SYR IV PRN (13:26)
[2021-12-09] MEDS: PIPERACILLIN/TAZOBACTAM SOD 3.375 GM in D5W MINI-BAG PLUS 50 ML IV SCH ×2 (13:53→21:16)
[2021-12-09] MEDS: NYSTATIN 500,000 U/5 ML SUSP UDC SS SCH ×2 (13:53→17:15)
[2021-12-09] MEDS ORDERED: HYDROCORTISONE 100 MG/2 ML VIAL (J1720 PER 1) IV SCH (15:00)
[2021-12-09] MEDS ORDERED: VANCOMYCIN HCL 1,000 MG, VIAL MATE ADAPTER 1 EACH in NS 250 ML IV ONE (15:00)
[2021-12-09] MEDS: NS 1,000 ML IV SCH ×2 (16:03→17:00)
[2021-12-09 19:12] LABS: FREE THYROXINE INDEX 1.4 % (1.3-4.8); THYROID STIMULATING HORMONE 2.08 uIU/ML (0.358-3.740); THYROXINE (T4) 3.3 UG/DL (4.5-12.0)
[2021-12-09] MEDS ORDERED: NS 1,000 ML IV ONE ×2 (20:25)
[2021-12-09 20:35] LABS: FREE THYROXINE INDEX 1.5 % (1.3-4.8); THYROID STIMULATING HORMONE 3.4 uIU/ML (0.358-3.740); THYROXINE (T4) 3.6 UG/DL (4.5-12.0)
[2021-12-09] MEDS: ENOXAPARIN 60MG/0.6ML SYRINGE (J1650 PER 10MG) SC SCH (21:17)
[2021-12-09] MEDS: VANCOMYCIN HCL 750 MG, VIAL MATE ADAPTER 1 EACH in NS 250 ML IV SCH (22:46)
[2021-12-10] VITALS (20 sets, daily range): BP systolic 101–156; BP diastolic 52–84
[2021-12-10] MEDS: NYSTATIN 500,000 U/5 ML SUSP UDC SS SCH ×4 (00:51→17:06)
[2021-12-10] MEDS: LEVALBUTEROL 1.25 MG/0.5 ML CONCENTRATE NEB NEB SCH ×4 (01:00→20:24)
[2021-12-10] MEDS: PIPERACILLIN/TAZOBACTAM SOD 3.375 GM in D5W MINI-BAG PLUS 50 ML IV SCH ×4 (01:39→19:56)
[2021-12-10 06:26] LABS: LYMPH # 0.4 10^3/uL (1.5-5.0); MEAN CORPUSCULAR HEMOGLOBIN 35.1 pg (27.0-33.0); MEAN CORPUSCULAR HGB CONC 33.8 g/dl (32.0-36.5); MEAN CORPUSCULAR VOLUME 103.7 fl (80.0-96.0); MONO # 0.3 10^3/uL (0.0-0.8); MONO % 3.3 % (2.0-8.0); NEUTROPHILS # 8.5 10^3/uL (1.5-8.5); RED BLOOD COUNT 1.88 10^6/uL (4.00-5.40); WHITE BLOOD COUNT 9.2 10^3/uL (4.0-10.0)
[2021-12-10 06:28] LABS: HEMATOCRIT 19.5 % (36.0-47.0)
[2021-12-10 06:29] LABS: HEMOGLOBIN 6.6 g/dl (12.0-15.5); PLATELET COUNT, AUTOMATED 51 10^3/uL (150-450)
[2021-12-10 06:50] LABS: CALCIUM LEVEL 7.6 MG/DL (8.8-10.2); CREATININE FOR GFR 1.08 MG/DL (0.55-1.30); GLOMERULAR FILTRATION RATE 53.1 (>39); MAGNESIUM LEVEL 2.4 MG/DL (1.8-2.4); POTASSIUM SERUM 4.1 MEQ/L (3.5-5.1)
[2021-12-10 07:22] LABS: HEMOGLOBIN 6.7 g/dl (12.0-15.5)
[2021-12-10] MEDS: HumaLOG INSULIN (NovoLOG) PER UNIT SC SCH ×4 (07:59→21:00)
[2021-12-10] MEDS: ENOXAPARIN 60MG/0.6ML SYRINGE (J1650 PER 10MG) SC SCH ×2 (08:29→09:00)
[2021-12-10] MEDS: OMEPRAZOLE 20MG CAP PO SCH ×2 (08:29→19:55)
[2021-12-10] MEDS: LACTULOSE 20 GM/30 ML SYRUP UD PO SCH ×4 (08:29→19:56)
[2021-12-10] MEDS: SUCRALFATE 1 GM TAB PO SCH ×2 (08:29→19:55)
[2021-12-10] MEDS: LEVOTHYROXINE 100MCG (0.1MG) 5ML SDV PF (SOLUTION FORM) IV SCH (08:29)
[2021-12-10] MEDS: DOCUSATE SODIUM 100MG CAPSULE PO SCH ×2 (08:29→19:56)
[2021-12-10] MEDS: POTASSIUM CHLORIDE 10MEQ SR TABLET PO SCH ×2 (08:30→19:55)
[2021-12-10] MEDS: dexameTHASONE 4 MG/ML 1ML VIAL (J1100 PER 1MG) IV SCH (08:30)
[2021-12-10] MEDS: MOM 30ML SUSPENSION UDC PO SCH (08:30)
[2021-12-10] MEDS: SODIUM CHLORIDE 0.9% INJ 10 ML SYR IV SCH (08:31)
[2021-12-10 08:48] LABS: ALBUMIN 2.3 GM/DL (3.2-5.2)
[2021-12-10] MEDS: VANCOMYCIN HCL 750 MG, VIAL MATE ADAPTER 1 EACH in NS 250 ML IV SCH ×2 (09:24→22:03)
[2021-12-10 12:22] LABS: PERCENT SATURATION 55.4 % (13.2-45.0)
[2021-12-10] MEDS: clonazePAM 1 MG TAB PO PRN (12:23)
[2021-12-10] MEDS ORDERED: FUROSEMIDE 40MG/4ML VIAL (J1940) IV ONE (14:00)
[2021-12-10 20:07] LABS: HEMATOCRIT 23.9 % (36.0-47.0); HEMOGLOBIN 8.1 g/dl (12.0-15.5); MEAN CORPUSCULAR HEMOGLOBIN 32.9 pg (27.0-33.0); MEAN CORPUSCULAR HGB CONC 33.9 g/dl (32.0-36.5); MEAN CORPUSCULAR VOLUME 97.2 fl (80.0-96.0); PLATELET COUNT, AUTOMATED 52 10^3/uL (150-450); RED BLOOD COUNT 2.46 10^6/uL (4.00-5.40); WHITE BLOOD COUNT 10.4 10^3/uL (4.0-10.0)
[2021-12-10] MEDS: FUROSEMIDE 40MG/4ML VIAL (J1940) IV SCH (22:03)
[2021-12-11] VITALS (12 sets, daily range): BP systolic 58–108; BP diastolic 32–55; O2SAT 98
[2021-12-11] MEDS: NYSTATIN 500,000 U/5 ML SUSP UDC SS SCH ×2 (00:27→05:31)
[2021-12-11] MEDS: LEVALBUTEROL 1.25 MG/0.5 ML CONCENTRATE NEB NEB SCH ×2 (01:00→08:23)
[2021-12-11] MEDS: PIPERACILLIN/TAZOBACTAM SOD 3.375 GM in D5W MINI-BAG PLUS 50 ML IV SCH (01:45)
[2021-12-11] MEDS: HumaLOG INSULIN (NovoLOG) PER UNIT SC SCH (07:30)
[2021-12-11] MEDS: clonazePAM 1 MG TAB PO PRN (08:30)
[2021-12-11] MEDS: OMEPRAZOLE 20MG CAP PO SCH (08:31)
[2021-12-11] MEDS: POTASSIUM CHLORIDE 10MEQ SR TABLET PO SCH (08:31)
[2021-12-11] MEDS: SUCRALFATE 1 GM TAB PO SCH (08:31)
[2021-12-11] MEDS: LEVOTHYROXINE 100MCG (0.1MG) 5ML SDV PF (SOLUTION FORM) IV SCH (08:31)
[2021-12-11] MEDS: LACTULOSE 20 GM/30 ML SYRUP UD PO SCH (08:31)
[2021-12-11] MEDS: SODIUM CHLORIDE 0.9% INJ 10 ML SYR IV SCH (08:32)
[2021-12-11] MEDS: DOCUSATE SODIUM 100MG CAPSULE PO SCH (08:32)
[2021-12-11] MEDS: MOM 30ML SUSPENSION UDC PO SCH (08:32)
[2021-12-11] MEDS: FUROSEMIDE 40MG/4ML VIAL (J1940) IV SCH (08:32)
[2021-12-11] MEDS ORDERED: predniSONE 10 MG TAB PO SCH (09:00)
[2021-12-11] MEDS ORDERED: AUGMENTIN 875 MG TAB PO SCH (09:00)
[2021-12-11 09:52] LABS: HEMOGLOBIN 7.5 g/dl (12.0-15.5); MEAN CORPUSCULAR HEMOGLOBIN 33.2 pg (27.0-33.0); MEAN CORPUSCULAR HGB CONC 34.1 g/dl (32.0-36.5); MEAN CORPUSCULAR VOLUME 97.3 fl (80.0-96.0); RED BLOOD COUNT 2.26 10^6/uL (4.00-5.40); WHITE BLOOD COUNT 10.7 10^3/uL (4.0-10.0)
[2021-12-11 09:53] LABS: PLATELET COUNT, AUTOMATED 58 10^3/uL (150-450)
[2021-12-11] MEDS: PERCOCET 5MG/325MG TAB PO PRN (10:08)
[2021-12-11 10:26] LABS: CALCIUM LEVEL 8.4 MG/DL (8.8-10.2); CREATININE FOR GFR 1.09 MG/DL (0.55-1.30); GLOMERULAR FILTRATION RATE 52.5 (>39); MAGNESIUM LEVEL 2.4 MG/DL (1.8-2.4); POTASSIUM SERUM 3.8 MEQ/L (3.5-5.1)
[2021-12-11] MEDS ORDERED: ISOVUE-370 76% 100ML VIAL As Ordered ONE (11:33)
[2021-12-11 12:18] LABS: SPEC. GRAVITY BODY FLUIDS 1.015 (NOT ESTABLISHED)
[2021-12-11 12:25] LABS: SOURCE, BODY FLUID ASCITES
[2021-12-11 12:26] LABS: APPEARANCE, BODY FLUID CLOUDY (CLEAR); ASCITES FL COLOR RED (COLORLESS)
[2021-12-11 12:35] LABS: SOURCE, BODY FLUID ALBUMIN ASCITES; SOURCE, BODY FLUID GLUCOSE ASCITES; SOURCE, BODY FLUID TOT PROTEIN ASCITES; TOTAL PROTEIN, BODY FLUID 1.8 G/DL (NOT ESTABLISHED)
[2021-12-11 12:42] LABS: ABG BASE EXCESS -2.8 (-2.0-2.0); ABG HCO3 20.7 MEQ/L (22.0-26.0); ABG O2 SATURATION 90.6 % (95.0-99.0); ABG PARTIAL PRESSURE O2 58.1 mmHg (75.0-100.0); ABG STANDARD HCO3 22.1 MEQ/L (22.0-26.0); ABG TOTAL CO2 21.6 MEQ/L (23.0-31.0); ABG pH (ARTERIAL) 7.472 UNITS (7.350-7.450)
[2021-12-11] MEDS ORDERED: LORazepam 2 MG/ML VIAL IV PRN (12:50)
[2021-12-11] MEDS ORDERED: ONDANSETRON 4MG/2ML VIAL IV PRN (12:50)
[2021-12-11] MEDS ORDERED: SCOPOLAMINE 1MG TRANSDERMAL PATCH TOP PRN (12:50)
[2021-12-11] MEDS ORDERED: MORPHINE 2 MG/ML 1ML VIAL IV PRN (12:50)
[2021-12-11 12:56] LABS: INR 2.08; PROTHROMBIN TIME 23.8 SECONDS (12.7-14.5)
[2021-12-11 12:57] LABS: PARTIAL THROMBOPLASTIN TIME 41.4 SECONDS (25.9-37.0)
[2021-12-11 13:03] LABS: EOS % 0.1 % (0.0-3.0); LYMPH # 0.7 10^3/uL (1.5-5.0); LYMPH % 5.8 % (24.0-44.0); MEAN CORPUSCULAR HEMOGLOBIN 33.1 pg (27.0-33.0); MEAN CORPUSCULAR HGB CONC 33.5 g/dl (32.0-36.5); MEAN CORPUSCULAR VOLUME 98.7 fl (80.0-96.0); MONO # 0.6 10^3/uL (0.0-0.8); MONO % 5.4 % (2.0-8.0); NEUTROPHILS # 10.2 10^3/uL (1.5-8.5); NEUTROPHILS % 87.4 % (36.0-66.0); RED BLOOD COUNT 1.57 10^6/uL (4.00-5.40); WHITE BLOOD COUNT 11.7 10^3/uL (4.0-10.0)
[2021-12-11 13:06] LABS: HEMATOCRIT 15.5 % (36.0-47.0); PLATELET COUNT, AUTOMATED 57 10^3/uL (150-450)
[2021-12-11 13:08] LABS: HEMOGLOBIN 5.2 g/dl (12.0-15.5)
[2021-12-11 13:14] LABS: BILIRUBIN,TOTAL 1.3 MG/DL (0.2-1.0); CALCIUM LEVEL 7.4 MG/DL (8.8-10.2); CREATININE FOR GFR 1.19 MG/DL (0.55-1.30); GLOMERULAR FILTRATION RATE 47.5 (>39); MAGNESIUM LEVEL 2.4 MG/DL (1.8-2.4); POTASSIUM SERUM 3.9 MEQ/L (3.5-5.1); TOTAL PROTEIN 3.1 GM/DL (6.4-8.2)
== END 2021-12-11 14:13 | disposition expired | DRG 432 ==
LOC: M ED 12:58 → EDBD 12:58 → M ED INP 18:27 → ENRESERV 20:54 → M 4MAIN 22:40 → M ICU 12-04 15:15 → M 4MAIN 12-05 14:31
PROVIDERS: ADMIT Internal Medicine; ATTEND Internal Medicine
PROC: 0W9B3ZZ Drainage of Left Pleural Cavity, Percutaneous Approach (ICD-10-PCS; 2021-11-29)
PROC: 0W9G3ZZ Drainage of Peritoneal Cavity, Percutaneous Approach (ICD-10-PCS; 2021-11-30)
PROC: 0W9G3ZZ Drainage of Peritoneal Cavity, Percutaneous Approach (ICD-10-PCS; 2021-12-05)
PROC: 30233N1 Transfusion of Nonautologous Red Blood Cells into Peripheral Vein, Percutaneous Approach (ICD-10-PCS; principal; 2021-12-10)
PROC: 0W9G3ZZ Drainage of Peritoneal Cavity, Percutaneous Approach (ICD-10-PCS; 2021-12-11)
DX: K74.60 Unspecified cirrhosis of liver (principal); G93.41 Metabolic encephalopathy; J18.9 Pneumonia, unspecified organism; I50.33 Acute on chronic diastolic (congestive) heart failure; K66.1 Hemoperitoneum; R18.8 Other ascites; J90 Pleural effusion, not elsewhere classified; J94.8 Other specified pleural conditions; E87.2 Acidosis; B37.0 Candidal stomatitis; D62 Acute posthemorrhagic anemia; I25.10 Atherosclerotic heart disease of native coronary artery without angina pectoris; D69.6 Thrombocytopenia, unspecified; E03.9 Hypothyroidism, unspecified; E78.5 Hyperlipidemia, unspecified; B97.81 Human metapneumovirus as the cause of diseases classified elsewhere; I11.0 Hypertensive heart disease with heart failure; R00.1 Bradycardia, unspecified; K76.81 Hepatopulmonary syndrome; R57.8 Other shock; Z66 Do not resuscitate; Z79.899 Other long term (current) drug therapy; Z85.07 Personal history of malignant neoplasm of pancreas; Z92.21 Personal history of antineoplastic chemotherapy; Z79.01 Long term (current) use of anticoagulants; K42.9 Umbilical hernia without obstruction or gangrene